=== PATIENT | female | born 1960 | race Two or more races ===

== ENCOUNTER 2022-08-06 01:40 | Inpatient (IN) | payer OTHER, SELFPAY ==
[2022-08-06] VITALS (12 sets, daily range): BP systolic 128–163; BP diastolic 63–86; PULSE 72–102; RESP 17–20; TEMP 36.2–37.2; O2SAT 95–98; BMI 51.0; BMI 51.1
--- NOTE | ~2022-08-06 | CT_ITS ---
EXAMINATION: CT HEAD WITHOUT CONTRAST (STROKE PROTOCOL) CLINICAL INFORMATION: Stroke protocol. Right-sided weakness COMPARISON: CT angiogram head 08/06/2022. TECHNIQUE: Contiguous axial imaging was performed from the skull base to vertex without intravenous administration of contrast. This CT examination was performed using dose optimization techniques as appropriate, variously including the following: *Automated exposure control *Adjustment of mA and/or kV according to patient size (this includes techniques or standardized protocols for targeted exams where dose is matched to indication/reason for exam; i.e. extremities or head) *Use of iterative reconstruction technique DLP: 648 mGy-cm FINDINGS: There is no acute intra-axial, extra-axial bleed, masses or midline shift. There is no acute infarction in evolution. There is no edema. The robin to white matter differentiation is maintained normal. The lateral ventricles are symmetrical in size and configuration without enlargement. Bone windows reveal no calvarial abnormality. Bilateral paranasal sinuses and mastoid air cells are well-aerated. There is no scalp soft tissue abnormality. CT/CT head for stroke IMPRESSION: No acute intracranial process seen. This critical result was discussed with Dr. Anne at 12:11 PM hours on 08/07/2022. It was ascertained that the content and urgency of the report was understood at the time of direct communication.
--- NOTE | ~2022-08-06 | CT_ITS ---
EXAMINATION: CT HEAD WITHOUT CONTRAST CT ANGIOGRAM HEAD AND NECK CLINICAL INFORMATION: Right-sided weakness COMPARISON: None TECHNIQUE: Test bolus sequences followed by intravenous administration 100 mL of Omnipaque 350 intravenous contrast. Helical imaging was performed in the axial plane from the mediastinum to the skull vertex. Delayed postcontrast imaging of the head was also performed. The data was processed at the product/device technologist's workstation for generation of MIP sequences. Three-dimensional volume rendered reformatted images were also generated at an offline 3-D workstation. This CT examination was performed using dose optimization techniques as appropriate, variously including the following: *Automated exposure control *Adjustment of mA and/or kV according to patient size (this includes techniques or standardized protocols for targeted exams where dose is matched to indication/reason for exam; i.e. extremities or head) *Use of iterative reconstruction technique The degree of stenosis determined by NASCET criteria. DLP: 2187 mGy-cm FINDINGS: BONES, SOFT TISSUES AND LUNG APICES: No overt abnormality is appreciated. CTA NECK: The aortic arch has a classic configuration and the major arch vessel origins are non-stenotic. The vertebral arteries are co-dominant and both vertebral origins are widely patent. Both common carotid arteries are normal in course and caliber. Left internal carotid artery demonstrates mild calcific atherosclerotic plaque at its origin without significant stenosis. Right internal carotid artery widely patent. CTA HEAD: No acute proximal large vessel occlusion, focal flow-limiting stenosis, or saccular intracranial aneurysm is identified. No abnormal parenchymal enhancement or regional oligemia is visualized. Extensive calcific atherosclerotic disease of the cavernous carotid arteries with irregular mild narrowing bilaterally however no hemodynamically significant stenosis. HEAD (noncontrast and delayed): No intracranial mass, intercerebral edema, hemorrhage, or midline shift is evident. The ventricles and sulci are stable in size and configuration. No extra-axial collections are appreciated. No pathologic intracranial enhancement. Dural sinuses are patent. The paranasal sinuses are well-aerated and clear. CT/CT angio head neck IMPRESSION: * No acute intracranial pathology. * No large vessel occlusion or hemodynamically significant stenosis within the intracranial or extracranial arterial vasculature.
--- NOTE | 2022-08-06 01:48 | ECG_ITS ---
Test Reason : DIZZINESS Blood Pressure : / mmHG Vent. Rate : 084 BPM Atrial Rate : 084 BPM P-R Int : 132 ms QRS Dur : 082 ms QT Int : 378 ms P-R-T Axes : 052 004 031 degrees QTc Int : 446 ms Normal sinus rhythm Normal ECG When compared with ECG of 02-DEC-2008 14:42, No significant change was found Referred By: Alayna Agarwal Electronically Signed By:RONALD STAHL MD
[2022-08-06 02:03] LABS: Basophils Absolute Auto 0.1 X10*3/uL (0.0-0.2); Basophils Percent Auto 0.4 % (0-2); Eosinophils Absolute Auto 0.1 X10*3/uL (0.0-0.4); Eosinophils Percent Auto 0.9 % (0-4); Hematocrit 37.7 % (37.0-47.0); Hemoglobin 12.4 g/dl (12.0-16.0); Imm Gran Abs Auto 0.07 X10*3/uL (0.00-0.03); Imm Gran Pct Auto 0.6 % (0.0-0.4); Lymphocytes Absolute Auto 2.8 X10*3/uL (1.2-4.9); Lymphocytes Percent Auto 24.2 % (20-40); MANUAL DIFF FLAG NO; Mean Corpuscular HGB Conc 32.9 g/dl (31.0-35.0); Mean Corpuscular Hemoglobin 29.3 pg (27.0-33.0); Mean Corpuscular Volume 89.1 fL (80.0-98.0); Mean Platelet Volume 9.5 fL (9.4-12.3); Monocytes Absolute Auto 0.7 X10*3/uL (0.1-1.2); Monocytes Percent Auto 6.4 % (2-11); Neutrophils Absolute Auto 7.8 x10*3/uL (2.0-8.3); Neutrophils Percent Auto 67.5 % (45-73); Platelet Count 357 X10*3/uL (160-400); Red Blood Count 4.23 X10*6/uL (4.20-5.50); Red Cell Distribution Width 12.6 % (11.0-16.0); White Blood Count 11.5 X10*3/uL (4.8-10.8)
--- NOTE | 2022-08-06 02:05 | PC.NURSE ---
patient reports dizziness that started at 5 in the afternoon with a headache and coldness of her right arm. She has a history of CVA with limited function of her right arm and leg.
[2022-08-06 02:09] LABS: Prothrombin Time 11.2 SEC (10.0-13.1)
[2022-08-06 02:21] LABS: Alanine Aminotransferase 15 U/L (0-31); Albumin Level 4.1 g/dL (3.5-5.0); Alkaline Phosphatase 61 U/L (39-117); Anion Gap 15 (12-20); Aspartate Amino Transferase 17 U/L (5-31); Bilirubin Total 0.4 mg/dL (0.0-1.0); Blood Urea Nitrogen 29 mg/dL (9-16); Calcium 9.8 mg/dL (8.4-10.2); Carbon Dioxide 27 mmol/L (22-29); Chloride 103 mmol/L (96-108); Creatinine Clr Calc Pharmacy 67.8; Estimated Glomerular Filt Rate 56; Glucose Random 103 mg/dL (60-115); Potassium 4.2 mmol/L (3.3-5.1); Sodium 141 mmol/L (135-145); Total Protein 7.9 g/dL (6.5-8.0)
[2022-08-06 02:25] LABS: Troponin-I High Sensitivity 4.9 ng/L (<3.5-17.0)
--- NOTE | 2022-08-06 02:40 | ED_ITS ---
HPI - Dizziness General Chief Complaint: Dizziness Stated Complaint: Dizziness for 30 mins Time Seen by Provider: 08/06/22 01:46 Source: patient and freelance interpreter/translator Mode of arrival: EMS History of Present Illness HPI Narrative: This is a 61-year-old female who arrives via EMS with complaints of dizziness that on the triage note says 30 minutes, but on questioning of the patient she states that her symptoms started at 18:00, no one was at home to help her and she did not call 911. Patient states that she has had a previous stroke and was undergoing physical therapy until approximately 07/[address] to [facility] she came to stay with her family who lives in the area. Therefore, she has not been undergoing any physical therapy and primarily gets around in a mechanical wheelchair until she stated with her family and now has limited ability to use a walker. Patient states that at approximately 18:00 she was experiencing headaches, dizziness and noted that her right upper and lower extremity became heavy. Related Data Allergies Allergy/AdvReac Type Severity Reaction Status Date / Time aspirin [Aspirin] Allergy Mild SWELLING, Unverified 01/11/21 14:25 facial swelling, redness Sulfa (Sulfonamide Allergy Mild SWELLING, Unverified 01/11/21 14:25 Antibiotics) facial [Sulfa (Sulfonamides)] swelling, redness Aspirin Allergy Unknown facial Uncoded 01/11/21 14:25 swolling sulfa Allergy Unknown facial Uncoded 01/11/21 14:25 swolling Review of Systems Review of Systems: Pertinent positives and negatives as stated in HPI PMFSH Past Medical History Source: nursing notes reviewed Social History Social History Advance Directives: No Advance Directives Information Provided: No Patient : No Physical Exam Vital Signs: Vital Signs: Last Vital Signs Temp 98.3 F 08/06/22 02:02 Pulse 90 08/06/22 03:39 Resp 18 08/06/22 01:46 BP 153/67 H 08/06/22 03:39 Pulse Ox 97 08/06/22 02:02 O2 Del Method Room Air 08/06/22 02:02 BMI result Body Mass Index 51.0 VITAL SIGNS: Reviewed. GENERAL: Elevated BMI, well developed, well nourished, in no acute distress. HEAD: Normocephalic/atraumatic EYES: PERRLA, EOMI EARS: Ext canals without abnormality NOSE: Nares patent bilateral OROPHARYNX: no oral lesions noted, posterior pharynx clear NECK: Supple, no adenopathy LUNGS: Normal breath sounds. No adventitious sounds or accessory muscle use. SpO2<97> CARDIOVASCULAR: Regular rate and rhythm without noted murmurs, no JVD or lower extremity edema. ABDOMEN: Soft, non-tender, non-distended with bowel sounds. MUSCULOSKELETAL: No tenderness, deformities, or effusions noted on gross inspection. EXTREMITIES: No cyanosis, clubbing or edema. SKIN: Inspection of the skin reveals no rashes NEUROLOGIC: Alert and oriented x 4. No facial asymmetry, please see NIH stroke scale NIH Stroke Scale Time: 02:30 Level of Consciousness: Alert Level of Consciousness Questions: Answers both questions correctly Level of Consciousness Commands: Performs both tasks correctly Best Gaze: Normal Visual: No visual loss Facial Palsy: Normal Motor Arm (Right): Some effort against gravity Motor Arm (Left): No drift Motor Leg (Right): Some effort against gravity Motor Leg (Left): No drift Limb Ataxia: Absent Sensory: Mild to moderate sensory loss Best Language: No aphasia Dysarthia: Normal Extinction and Inattention: No abnormality Score: 5 Medications Administered Discontinued Medications Generic Name Dose Route Start Last Admin Trade Name Freq PRN Reason Stop Dose Admin Iohexol 99 ml 08/06/22 03:28 08/06/22 03:29 Iohexol 350 Mg/Ml 100 Ml Infus..Btl IV 08/06/22 03:29 99 ml ONCE ONE Administration Medical Decision Making Medical Decision Making [facility] Narrative: This is a 61-year-old female who appears to be on Plavix for previous stroke, has not noted to be diabetic, symptom onset was at 18:00, it was explained to the patient that she is outside the window for tPA but NIH stroke scale is measured as 5 at this time. I will proceed with CT of the head as well as CT angio head/neck Review of all investigations demonstrates negative imaging studies to support any sort of LVO or hemorrhagic stroke, patient is subacute at this point this is not a tPA candidate, of note it was found that patient had a urinary tract infection, lactic acid and blood cultures were obtained and patient received initial dose of 1 g of Rocephin. There were no SIRS symptoms 0428: I discussed case with inpatient hospitalist who accepts admission. Differential Diagnosis Please see the discussion above Consult Healthcare Provider Management of the patient was discussed with: Hospitalist Please see the discussion above Lab Data Please see the discussion above 08/06/22 01:59 08/06/22 01:59 Labs: Lab Results 08/06/22 08/06/22 08/06/22 Range/Units 01:59 01:59 01:59 WBC 11.5 H (4.8-10.8) X10*3/uL RBC 4.23 (4.20-5.50) X10*6/uL Hgb 12.4 (12.0-16.0) g/dl Hct 37.7 (37.0-47.0) % MCV 89.1 (80.0-98.0) fL MCH 29.3 (27.0-33.0) pg MCHC 32.9 (31.0-35.0) g/dl RDW 12.6 (11.0-16.0) % Plt Count 357 (160-400) X10*3/uL MPV 9.5 (9.4-12.3) fL Immature Gran % (Auto) 0.6 H (0.0-0.4) % Neut % (Auto) 67.5 (45-73) % Lymph % (Auto) 24.2 (20-40) % [place] % (Auto) 6.4 (2-11) % Eos % (Auto) 0.9 (0-4) % Baso % (Auto) 0.4 (0-2) % Lymph # (Auto) 2.8 (1.2-4.9) X10*3/uL [place] # (Auto) 0.7 (0.1-1.2) X10*3/uL Eos # (Auto) 0.1 (0.0-0.4) X10*3/uL Baso # (Auto) 0.1 (0.0-0.2) X10*3/uL Abs Immat Gran (auto) 0.07 H (0.00-0.03) X10*3/uL Absolute Neuts (auto) 7.8 (2.0-8.3) x10*3/uL Absolute Nucleated RBC 0.000 (0.0-0.012) X10*3/uL Nucleated RBC % (auto) 0.0 (0.0-0.2) /100WBC PT 11.2 (10.0-13.1) SEC INR 1.0 (0.9-1.1) Sodium 141 (135-145) mmol/L Potassium 4.2 (3.3-5.1) mmol/L Chloride 103 (96-108) mmol/L Carbon Dioxide 27 (22-29) mmol/L Anion Gap 15 (12-20) BUN 29 H (9-16) mg/dL Creatinine 1.00 (0.5-1.4) mg/dL Estim Creat Clear Calc 67.8 Estimated GFR 56 POC Glucose (60-115) mg/dL Random Glucose 103 (60-115) mg/dL Calcium 9.8 (8.4-10.2) mg/dL Total Bilirubin 0.4 (0.0-1.0) mg/dL AST 17 (5-31) U/L ALT 15 (0-31) U/L Alkaline Phosphatase 61 (39-117) U/L Troponin I High Sens (<3.5-17.0) ng/L Total Protein 7.9 (6.5-8.0) g/dL Albumin 4.1 (3.5-5.0) g/dL Urine Color Urine Appearance Urine pH (5.0-9.0) Ur Specific [place] (1.005-1.025) Urine Protein (Neg-Trace) mg/dL Urine Glucose (UA) (Negative) mg/dL Urine Ketones (Negative) mg/dL Urine Blood (Negative) Urine Nitrite (Negative) Ur Leukocyte Esterase (Negative) Urine RBC (0-2) /HPF Urine WBC (0-5) /HPF Ur Squamous Epith Cells (0-2) /HPF Urine Bacteria (None Seen) Hyaline Casts (0-2) /LPF 08/06/22 08/06/22 08/06/22 Range/Units 01:59 03:25 03:45 WBC (4.8-10.8) X10*3/uL RBC (4.20-5.50) X10*6/uL Hgb (12.0-16.0) g/dl Hct (37.0-47.0) % MCV (80.0-98.0) fL MCH (27.0-33.0) pg MCHC (31.0-35.0) g/dl RDW (11.0-16.0) % Plt Count (160-400) X10*3/uL MPV (9.4-12.3) fL Immature Gran % (Auto) (0.0-0.4) % Neut % (Auto) (45-73) % Lymph % (Auto) (20-40) % [place] % (Auto) (2-11) % Eos % (Auto) (0-4) % Baso % (Auto) (0-2) % Lymph # (Auto) (1.2-4.9) X10*3/uL [place] # (Auto) (0.1-1.2) X10*3/uL Eos # (Auto) (0.0-0.4) X10*3/uL Baso # (Auto) (0.0-0.2) X10*3/uL Abs Immat Gran (auto) (0.00-0.03) X10*3/uL Absolute Neuts (auto) (2.0-8.3) x10*3/uL Absolute Nucleated RBC (0.0-0.012) X10*3/uL Nucleated RBC % (auto) (0.0-0.2) /100WBC PT (10.0-13.1) SEC INR (0.9-1.1) Sodium (135-145) mmol/L Potassium (3.3-5.1) mmol/L Chloride (96-108) mmol/L Carbon Dioxide (22-29) mmol/L Anion Gap (12-20) BUN (9-16) mg/dL Creatinine (0.5-1.4) mg/dL Estim Creat Clear Calc Estimated GFR POC Glucose 111 (60-115) mg/dL Random Glucose (60-115) mg/dL Calcium (8.4-10.2) mg/dL Total Bilirubin (0.0-1.0) mg/dL AST (5-31) U/L ALT (0-31) U/L Alkaline Phosphatase (39-117) U/L Troponin I High Sens 4.9 (<3.5-17.0) ng/L Total Protein (6.5-8.0) g/dL Albumin (3.5-5.0) g/dL Urine Color Yellow Urine Appearance Clear Urine pH 5.5 (5.0-9.0) Ur Specific [place] 1.020 (1.005-1.025) Urine Protein Negative (Neg-Trace) mg/dL Urine Glucose (UA) Negative (Negative) mg/dL Urine Ketones Negative (Negative) mg/dL Urine Blood Negative (Negative) Urine Nitrite Negative (Negative) Ur Leukocyte Esterase Large (3+) H (Negative) Urine RBC 0-2 (0-2) /HPF Urine WBC 11-20 H (0-5) /HPF Ur Squamous Epith Cells 6-10 (0-2) /HPF Urine Bacteria 2+ (None Seen) Hyaline Casts 0-2 (0-2) /LPF Independent Interpretation I performed an independent interpretation of an: EKG Interpretation: Normal sinus rhythm, HR-84, no STEMI, NM/QRS/QTC is within normal limits. Radiology Impression Radiologist Impression: My interpretation is in agreement with radiology's impression. Discharge Plan Discharge Clinical Impression: CVA (cerebral vascular accident), UTI (urinary tract infection) Patient Disposition: Admitted As Inpatient
[2022-08-06] MEDS: iohexoL 350 MG/ML 100 ML INFUS..BTL 99 ML IV (03:29)
[2022-08-06 03:51] LABS: Glucose, Whole Blood 111 mg/dL (60-115)
[2022-08-06 03:53] LABS: Appearance Urine Clear; Color Urine Yellow; Glucose Urine UA Negative (Negative); Leukocyte Esterase Urine Large (3+) (Negative); Nitrite Urine Negative (Negative); PH 5.5 (5.0-9.0); UMIC TRIGGER UACC YES; Urine Blood Negative (Negative); Urine Ketones Negative (Negative); Urine Protein Negative (Neg-Trace)
[2022-08-06 03:58] LABS: Bacteria Urine 2+ (None Seen); Hyaline Casts Urine 0-2 /LPF (0-2); RBC Urine 0-2 /HPF (0-2); UACC Culture Trigger YES
[2022-08-06] MEDS: cefTRIAXone sodium 1 GM in 0.9 % Sodium Chloride 50 ML IV (04:49)
--- NOTE | 2022-08-06 05:01 | P.HPHOSP_ITS ---
History of Present Illness Date of Service: 08/06/22 Chief Complaint: Right sided weakness This is a 61-year-old female with pertinent history of essential hypertension, gastroesophageal reflux disease, mixed hyperlipidemia, history of CVA who presents to the emergency department for evaluation of dizziness and right-sided weakness. Patient states her symptoms started at 18:00. Patient states her right upper and lower extremity became heavy and she had difficulty moving them. Also noted that she was having headache, dizziness which has been constant. Patient had a previous CVA in November and was using a walker to ambulate. She denies jerking movement of extremities, facial droop, urinary or bowel in continence. No fever, chills, chest discomfort, palpitations, shortness of breath, abdominal pain, changes in urinary or bowel habits. In the emergency department, CTA without any significant deficits Review of Systems Constitutional: Constitutional: Reports no additional constitutional compla ints and Reports weakness ENT: Reports dizziness Cardiovascular: Cardiovascular: Reports no additional cardiovascular complaints Respiratory: Respiratory: Reports no additional respiratory complaints Gastrointestinal: Gastrointestinal: Reports no additional gastrointestinal complaints Neurologic: Reports dizziness and Reports weakness [facility] Medical History Essential hypertension Mixed hyperlipidemia Mood disorder Pertinent family history: No family history of early CAD Social History Patient Tobacco Use Status: Never used Tobacco Advance Directives: No Advance Directives Information Provided: No Nutrition Risks: No Nutritional Risk Patient : No Meds Allergies Allergy/AdvReac Type Severity Reaction Status Date / Time aspirin [Aspirin] Allergy Mild SWELLING, Unverified 01/11/21 14:25 facial swelling, redness Sulfa (Sulfonamide Allergy Mild SWELLING, Unverified 01/11/21 14:25 Antibiotics) facial [Sulfa (Sulfonamides)] swelling, redness Aspirin Allergy Unknown facial Uncoded 01/11/21 14:25 swolling sulfa Allergy Unknown facial Uncoded 01/11/21 14:25 swolling Active Medications: Current Medications Pharmacy Consult (Consult Rx Perform Med Rec) 1 each MISCELLANE ONCE PRN PRN Reason: Consult order Home Medications Medication Instructions Recorded Confirmed Last Taken Type atorvastatin 40 mg tablet 40 mg PO DAILY 08/06/22 08/06/22 Unknown History chlorthalidone 25 mg tablet 25 mg PO DAILY 08/06/22 08/06/22 Unknown History cholecalciferol (vitamin D3) 125 125 mcg PO DAILY 08/06/22 08/06/22 Unknown History mcg (5,000 unit) tablet (Vitamin D3) clopidogrel 75 mg tablet 75 mg PO DAILY 08/06/22 08/06/22 Unknown History lisinopril 40 mg tablet 40 mg PO DAILY 08/06/22 08/06/22 Unknown History loratadine 10 mg tablet 10 mg PO DAILY 08/06/22 08/06/22 Unknown History meclizine 12.5 mg tablet 12.5 mg PO TID 08/06/22 08/06/22 Unknown History omeprazole 20 mg capsule,delayed 20 mg PO DAILY 08/06/22 08/06/22 Unknown History release Physical Exam Vital Signs and Narrative: Vital Signs: Last Vital Signs Temp 98.3 F 08/06/22 02:02 Pulse 90 08/06/22 03:39 Resp 18 08/06/22 01:46 BP 153/67 H 08/06/22 03:39 Pulse Ox 97 08/06/22 02:02 O2 Del Method Room Air 08/06/22 02:02 BMI result Body Mass Index 51.0 Middle-aged female lying in bed in no distress Neck supple, no JVD Regular rate and rhythm, S1-S2 heard Regular breath sounds bilaterally, no wheezing or crackles appreciated Abdomen soft nontender, no guarding, no rigidity Patient is awake, alert and oriented to self, place, time and person ; strength 5/5 in left upper and lower extremities, 3/5 in right upper extremity, 4/5 in right lower extremity, tongue and uvula midline, no facial droop Psych: Normal mood No pedal edema Results Labs 08/06/22 01:59 08/06/22 01:59 Labs: Laboratory Results - last 24 hr 08/06/22 08/06/22 08/06/22 01:59 01:59 01:59 MCV 89.1 MCH 29.3 MCHC 32.9 RDW 12.6 Plt Count 357 MPV 9.5 Immature Gran % (Auto) 0.6 H Neut % (Auto) 67.5 Lymph % (Auto) 24.2 [place] % (Auto) 6.4 Eos % (Auto) 0.9 Baso % (Auto) 0.4 Lymph # (Auto) 2.8 [place] # (Auto) 0.7 Eos # (Auto) 0.1 Baso # (Auto) 0.1 Abs Immat Gran (auto) 0.07 H Absolute Neuts (auto) 7.8 Absolute Nucleated RBC 0.000 Nucleated RBC % (auto) 0.0 PT 11.2 INR 1.0 Anion Gap 15 Estim Creat Clear Calc 67.8 Estimated GFR 56 POC Glucose Random Glucose 103 Calcium 9.8 Total Bilirubin 0.4 AST 17 ALT 15 Alkaline Phosphatase 61 Troponin I High Sens Total Protein 7.9 Albumin 4.1 Urine Color Urine Appearance Urine pH Ur Specific [place] Urine Protein Urine Glucose (UA) Urine Ketones Urine Blood Urine Nitrite Ur Leukocyte Esterase Urine RBC Urine WBC Ur Squamous Epith Cells Urine Bacteria Hyaline Casts 08/06/22 08/06/22 08/06/22 01:59 03:25 03:45 MCV MCH MCHC RDW Plt Count MPV Immature Gran % (Auto) Neut % (Auto) Lymph % (Auto) [place] % (Auto) Eos % (Auto) Baso % (Auto) Lymph # (Auto) [place] # (Auto) Eos # (Auto) Baso # (Auto) Abs Immat Gran (auto) Absolute Neuts (auto) Absolute Nucleated RBC Nucleated RBC % (auto) PT INR Anion Gap Estim Creat Clear Calc Estimated GFR POC Glucose 111 Random Glucose Calcium Total Bilirubin AST ALT Alkaline Phosphatase Troponin I High Sens 4.9 Total Protein Albumin Urine Color Yellow Urine Appearance Clear Urine pH 5.5 Ur Specific [place] 1.020 Urine Protein Negative Urine Glucose (UA) Negative Urine Ketones Negative Urine Blood Negative Urine Nitrite Negative Ur Leukocyte Esterase Large (3+) H Urine RBC 0-2 Urine WBC 11-20 H Ur Squamous Epith Cells 6-10 Urine Bacteria 2+ Hyaline Casts 0-2 Imaging Radiologist's Impressions: Impressions Head/Neck CTA 08/06/22 03:15 IMPRESSION: * No acute intracranial pathology. * No large vessel occlusion or hemodynamically significant stenosis within the intracranial or extracranial arterial vasculature. Assessment and Plan (1) CVA (cerebral vascular accident): Status: Acute Plan This is a 61-year-old female with pertinent history of essential hypertension, gastroesophageal reflux disease, mixed hyperlipidemia, history of CVA who presents to the emergency department for evaluation of dizziness and right-sided weakness. #. Right-sided weakness concerning for acute CVA. Will admit patient with cardiac exercise specialist. Consulted Neurology, appreciate assistance. Obtaining MRI of the brain. Echo, A1c and lipid panel pending to complete workup. Consulted PT/OT to evaluate and treat. NPO until patient passes swallow study. Patient is on Plavix and high-intensity statin #. Essential hypertension. Hold antihypertensives to allow for permissive hypertension #. Mood disorder. Continue home mood stabilizers #. Mixed hyperlipidemia: On statin #. Asymptomatic bacteriuria. Defer treatment #. Gastroesophageal reflux disease: On PPI Med rec pending DVT prophylaxis: Lovenox Full code NPO Admit as inpatient and will require two night minimum hospital stay for evaluation of possible CVA. Specialist consult pending Time Spent With Patient Time: Total time managing care of this patient today ____ minutes. Quality Stroke Does the patient have a stroke diagnosis?: Yes Reason for No Anti-thrombotic by Day Two: N/A - Med Ordered VTE Prior VTE?: No VTE Risk Level:: Medical - moderate - high VTE Device Contraindication: Treatment Not Indicated VTE Drug Contraindication: N/A - Med Ordered
--- OUTSIDE RECORDS SUMMARY | 2022-08-06 05:05 | XMS_ITS | Continuity of Care Document ---
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 Allergies, Adverse Reactions, Alerts Allergen Type Severity Reaction Last Updated Verified Status aspirin Allergy Unknown January 29, 2022 2:13pm Yes Active Sulfa (Sulfonamide Antibiotics) Allergy Unknown January 29, 022 2:13pm Yes Active Social History Smoking Status Unknown if ever smoked Observation Status Observation Response Date of [facility] 12:03pm Services Prior to Admission Home Health Aide [facility] 2021 12:03pm Living [facility] 2021 3:42pm Living Situation Apartment November 29, 2021 12:14pm Living Situation Apartment December 01, 2021 1:58pm Is Anyone Dependent on your Care? No January 29, 2022 2:14pm Living Situation Apartment January 29, 2022 2:14pm Lives With Family January 29, 022 2:14pm Additional Data Assigned Sex Female Problems Active Problems Medical Problem Onset Date Status Numbness Active Bradycardia Active Cerebrovascular disease Active TIA (transient ischemic attack) Active Superficial thrombophlebitis Act antonette Weakness Active HTN (hypertension) Active Obesity Active Inactive/Resolved Problems Medical Problem Onset Date Status Insomnia Resolved Headache Resolved Chest pain Resolved Medications Medication Status Dose Units Route Directions Qty Days St art Date End Date Instructions Cetirizine Active 10 MG PO DAILY [facility] 2021 11:00pm Metoprolol Succinate Active 200 MG PO DAILY [facility] 2021 11:00pm Chlorthalidon e Discontin ued 25 MG PO DAILY [facility] 2021 11:00pm [facility] 2021 11:44p m Chlorthalidon e Active 75 MG PO DAILY [facility] 2021 11:00pm Acetaminophen Active 500 MG PO DAILY [facility] 2021 11:00pm Pantoprazole Active 40 MG PO DAILY [facility] 2021 11:00pm Omeprazole Active 20 MG PO DAILY [facility] 2021 11:00pm Verapamil Active 240 MG PO DAILY [facility] 2021 11:00pm Fluticasone Propionate (Flovent Hfa) 220 mcg/actuation HFA aerosol inhaler Active 1 INH INH TWICE A DAY [facility] 2021 11:00pm Albuterol Sulfate (Proair Hfa) 90 mcg/actuation HFA aerosol inhaler Active 1 INH INH EVERY 6 HOURS [facility] 2021 11:00pm Lisinopril Active 40 MG PO DAILY [facility] 2021 11:00pm Topiramate Active 100 MG PO DAILY [facility] 2021 11:00pm Rosuvastatin Active 20 MG PO DAILY [facility] 2021 11:00pm Bupropion Hcl Active 300 MG PO DAILY [facility] 2021 11:00pm Cholecalcifer ol (Vitamin D3) (Vitamin D3) 125 mcg (5,000 unit) tablet Active 125 MCG PO DAILY [facility] 2021 11:00pm Acetaminophen Active 650 MG PO THREE TIMES A DAY [facility] 2021 11:00pm Clopidogrel Active 75 MG PO DAILY [facility] 11:00pm Procedures Procedure Date Performed Status US venous duplex LE RT January 29, 2022 2:17p m completed Relevant Diagnostic Tests and/or Laboratory Data Diagnostic Imaging Reports Report Dictated Date/Time Dictated By Status Radiology Report January 29, 2022 3:45pm Edilberto Sneed MD completed [address] [address] Patient Name: Luevano,Alysa Medical Record#: [id number] 1 Address: [address] [place] [address] City/State/Zip: [place] [address]: Mario E/R Physician Insurance: [facility] (Medicaid) /Age/Sex: 1960/61/F Self Pay Admit/Reg Date: 01/29/[address]: Evette Mena NP Location: ED.[facility]/ PCP: Agata Reza MD Date of Service: 01/29/22 Order (s): US venous duplex LE RT CPT Code: 69541 Report Number: [id number] Reason for Exam: calf pain/tender PROCEDURE: US venous duplex LE RT INDICATION: calf pain/tender right calf pain TECHNIQUE: Color and duplex Doppler ultrasound as well as Doppler waveform analysis was performed of the right common femoral, femoral, popliteal and posterior tibial veins. The veins are anechoic, fully compressible, demonstrate full color Doppler filling and normal Doppler waveforms with augmentation response. Normal phasicity is noted of the femoral veins. The right posterior tibial vein in the upper calf is patent on color Doppler imaging. Of note is partially occlusive thrombus of the great saphenous vein just proximal to the saphenofemoral junction. Great saphenous vein in the mid thigh shows no visible thrombus. IMPRESSION: Focal Partially occlusive thrombus of the great saphenous vein just proximal to the saphenofemoral junction. No sonographic evidence of right common femoral, femoral or popliteal venous thrombus Dictated By: Edilberto Sneed MD 01/29/22 1545 Signed By: Edilberto Sneed MD 01/29/22 1553 TD/TT: 01/29/22 1545Tech: [id number] cc: E/R; CECILY RAMIREZ* E/R Physician,Mario ; Evette Mena NP; Agata Reza MD Vital Signs Vital Reading Result Reference Range Collection Date/Time Height 152.4 cm January 29, 2022 2:14pm Weight 119.74 kg January 29, 2022 2:14pm Body Temperature 97.8 [degF] 97.6-99.6 January 292021 2:14pm Heart Rate 75 /min 60-90 January 29, 2022 2:14pm Respiratory rate 20 /min 12-January 292021 2:14pm Oxygen saturation by Pulse oximetry 99 % 95-100 January 29, 2022 2:14pm BP Systolic 114 mm[Hg] 90-140 January 29, 2022 2:14pm BP Diastolic 75 mm[Hg] 60-90 January 29, 2022 2:14pm BMI (Body Mass Index) 51.6 kg/m2 [facility] 2021 2:14pm Advance Directives Advance Directive Response Recorded Date/ Time Pt has Medical Orders for Li fe Sustaining Tx Form (MOLST)? No November 14, 2021 9:59am Advance Directives No November 9:59am Health Care Proxy No November 14, 2021 9:59am Advance Directives No November 3:18pm Health Care Proxy No November 3:18pm Advance Directives No November 11:53am Health Care Proxy No November 11:53am Advance Directives No November 1:41pm Health Care Proxy No November 1:41pm Advance Directives No January 12:23pm Health Care Proxy No January 29, 2022 12:23pm Insurance Providers Guarantor Alysa Luevano Address [address] [place] [address] Contact Info. Home Phone: Payer Policy Id Coverage Id Subscriber's Name Subscriber Id Effective Date Expiration Date [facility] (Medicaid) [id number] Alysa Luevano [id number] Encounters Encounter Location(s) Arrival/Admit Date Discharge/Depart Date Provider(s) Departed Emergency [facility] January 29, 2022 12:23pm January 29, 2022 4:32pm null Plan of Treatment Future Tests Future scheduled test information is unavailable Pending Tests Test Name Ordered Date Scheduled Date VTE Risk Assessment Medical November 14, 2021 2:09am November 14, 2021 2:09am Future Visits Future appointment information is unavailable Referrals to Other Providers Reason for Referral Referral Start Date Provider Provider Contact Information Provider Address 6 months Rachna Norris MD Work Phone: [address] [facility] [address] Agata Reza MD Work Phone: [address] [address] Agata Reza MD Work Phone: [phone] [address] Agata Reza MD Work Phone: [address] [address] Agata Reza MD Work Phone: [phone] [address] Agata Reza MD Work Phone: [phone] [phone] Future Procedures Procedure Name Ordered Date Scheduled Date Hospital Level of Care November 15, 2021 9:43a m November 15, 2021 9:43am Occupational Therapy Consult November 14, 2021 8:57am November 14, 2021 8:57am Physical Therapy Consult November 14, 2021 2:0 9am November 14, 2021 2:09am Activity November 14, 2021 2:09am Septe mb 2021 2:10am Discharge November 16, 2021 2:50pm Septmario kirkpatrick 2021 2:50pm Discharge November 17, 2021 9:43am Septmario kirkpatrick 2021 9:43am ED Transfer of Care to Adm Physician November 13, 2021 11:33pm November 13, 2021 11:33p m Elevate Head of Bed November 13, 2021 9:32pm S eptember 2021 9:32pm Saline Lock Insert/Manage November 13, 2021 8: 47pm November 13, 2021 8:47pm Neurology Consult November 14, 2021 2:09am Sep tember 2021 2:09am Oxygen Initiate/Maintain November 13, 2021 9:3 2pm November 13, 2021 9:32pm Oxygen Initiate/Maintain November 13, 2021 8:4 7pm November 13, 2021 8:47pm Patient Preference for Pain Management November 14, 2021 2:09am November 14, 2021 2:09am Provider Order to Nurse November 14, 2021 9:30 am November 14, 2021 9:30am Continuous Pulse Oximetry November 13, 2021 8: 47pm November 13, 2021 8:47pm Continuous Pulse Oximetry November 13, 2021 9: 32pm November 13, 2021 9:32pm Sequential Compression Device November 14 2:09am November 14, 2021 2:09am Vascular Surgery Consult November 14, 2021 1:3 3pm November 14, 2021 1:33pm Saline Lock Insert/Manage November 21, 2021 3 :46pm November 21, 2021 3:46pm Oxygen Initiate/Maintain November 21, 2021 3: 46pm November 21, 2021 3:46pm Continuous Pulse Oximetry November 21, 2021 3 :46pm November 21, 2021 3:46pm Future Medications Future medication information is unavailable Patient Instructions Self-Care for Headaches ED Thrombophlebitis, Superfi cial Goals Acute Goals You have a blood clot in you r leg it is superficial. Apply warm moist compresses 3-4 times daily use Tylenol for pain follow-up with your primary care provider.
--- OUTSIDE RECORDS SUMMARY | 2022-08-06 05:05 | XMS_ITS | Continuity of Care Document ---
Author Name Unknown Address [address] [place] [address] Phone Organization [facility] Address [address] [place] [address] Phone Care Team Providers Care Divisional Storekeeper Name Role Phone MD Agata Reza Primary Care Provider MD Carroll Alcantara Emergency Provider [phone] MD Pa Cooper Attending Provider [phone] Production Analyst, Twan Other Provider Unavailable Chief Complaint and Reason for Visit Chief Complaint Vertigo Reason for Visit Vertigo Allergies, Adverse Reactions, Alerts Allergen Type Severity Reaction Last Updated Verified Status aspirin Allergy Unknown April 02, 2022 1:53pm Yes Active Sulfa (Sulfonamide Antibiotics) Allergy Unknown April 02 1:53pm Yes Active Social History Smoking Status Unknown if ever smoked Observation Status Observation Response Date of Response Living Situation Apartment November 15, 2021 12:03pm Services Prior to Admission Home Health Aide [facility] 2021 12:03pm Living Situation Hearing Aid Assistant Care Facility [facility] 2021 3:42pm Living Situation Apartment November 29, 2021 12:14pm Living Situation Apartment December 01, 2021 1:58pm Is Anyone Dependent on your Care? No January 29, 2022 2:14pm Living Situation Apartment January 29, 2022 2:14pm Lives With Family January 29, 2 022 2:14pm Additional Data Assigned Sex Female Problems Active Problems Medical Problem Onset Date Status Numbness Active Bradycardia Active Cerebrovascular disease Active TIA (transient ischemic attack) Active Vertigo Active Weakness Active HTN (hypertension) Active Obesity Active Inactive/Resolved Problems Medical Problem Onset Date Status Insomnia Resolved Headache Resolved Superficial thrombophlebitis Res olved Chest pain Resolved Medications Medication Status Dose Units Route Directions Qty Days St art Date End Date Instructions Cetirizine Discontin ued 10 MG PO DAILY [facility] 2021 11:00pm 2022 4:22pm Metoprolol Succinate Discontin ued 200 MG PO DAILY [facility] 2021 11:00pm 2022 4:22pm Chlorthalidon e Discontin ued 25 MG PO DAILY [facility] 2021 11:00pm Septem inessa 2021 11:44p m Chlorthalidon e Discontin ued 75 MG PO DAILY [facility] 2021 11:00pm 2022 4:20pm Acetaminophen Active 500 MG PO TWICE A DAY [facility] 2021 11:00pm Pantoprazole Discontin ued 40 MG PO DAILY [facility] 2021 11:00pm 2022 4:24pm Omeprazole Active 20 MG PO DAILY [facility] 2021 11:00pm Verapamil Active 240 MG PO DAILY [facility] 2021 11:00pm Fluticasone Propionate (Flovent Hfa) 220 mcg/actuation HFA aerosol inhaler Active 1 INH INH DAILY [facility] 2021 11:00pm Albuterol Sulfate (Proair Hfa) 90 mcg/actuation HFA aerosol inhaler Active 1 INH INH EVERY 6 HOURS [facility] 2021 11:00pm Lisinopril Active 40 MG PO DAILY [facility] 2021 11:00pm Topiramate Discontin ued 100 MG PO DAILY [facility] 2021 11:00pm 2022 4:24pm Rosuvastatin Discontin ued 20 MG PO DAILY [facility] 2021 11:00pm 2022 4:53pm Bupropion Hcl Discontin ued 300 MG PO DAILY [facility] 2021 11:00pm 2022 4:23pm Cholecalcifer ol (Vitamin D3) (Vitamin D3) 125 mcg (5,000 unit) tablet Active 125 MCG PO DAILY [facility] 2021 11:00pm Acetaminophen Discontin ued 650 MG PO THREE TIMES A DAY [facility] 2021 11:00pm Jantam y 2022 4:22pm Clopidogrel Active 75 MG PO DAILY 30 er 2021 11:00pm Atorvastatin Active 40 MG PO DAILY 2022 12:00am Chlorthalidon e Active 25 MG PO DAILY April 02, 2022 12:00am Rosuvastatin Active 10 MG PO DAILY 2022 12:00am Procedures Procedure Date Performed Status EKG ED Electrocardiogram April 02, 2022 1:[address] head/brain wo contrast April 02, 2022 1:5 1pm completed Relevant Diagnostic Tests and/or Laboratory Data Laboratory Results Test Date/Time Result Interpretation Reference Range Result Comment Performing Site White Blood Count April 02, 2022 1:58pm 12.4 X10 3/uL 4.5-11.0 [facility] [id number] [address] [place] [address] 40654 Red Blood Count April 02, 2022 1:58pm 4.18 X10 6/uL 3.70-5.00 [facility] [id number] [address] [place] [address] 84415 Hemoglobin April 02, 2022 1:58pm 12.4 g/dl 11.0-16.0 [facility] [id number] [address] [place] [address] 63049 Hematocrit April 02, 2022 1:58pm 39.1 % 33.5-45.0 [facility] [id number] [address] [place] [address] 36292 Mean Corpuscular Volume April 02, 2022 1:58pm 93.5 fl 80.0-100.0 [facility] [id number] [address] [place] [address] 44669 Mean Corpuscular Hemoglobin April 02, 2022 1:58pm 29.7 pg 27.0-34.0 [facility] [id number] [facility] 8[address]77 Mean Corpuscular Hemoglobin Concent April 02, 2022 1:58pm 31.7 g/dl 31.0-36.0 [facility] [id number] [address] [place] [address] 41876 Red Cell Distribution Width April 02, 2022 1:58pm 12.1 % 11.5-15.0 [facility] [id number] [address] [place] [address] 24364 Platelet Count April 02, 2022 1:58pm 355 X10 3/uL 150-400 [facility] [id number] [address] [place] [address] 00859 Immature Granulocyte % (Auto) April 02, 2022 1:58pm 1.1 % [facility] [id number] [address] [place] [address] 72923 Neutrophils (%) (Auto) April 02, 2022 1:58pm 80.0 % [facility] [id number] [address] [place] [address] 47816 Lymphocytes (%) (Auto) April 02, 2022 1:58pm 13.4 % [facility] [id number] [address] [place] [address] 87832 Monocytes (%) (Auto) April 02, 2022 1:58pm 4.7 % [facility] [id number] [address] [place] [address] 91847 Eosinophils (%) (Auto) April 02, 2022 1:58pm 0.3 % [facility] [id number] [address] [place] [address] 00165 Basophils (%) (Auto) April 02, 2022 1:58pm 0.5 % [facility] [id number] [address] [place] [address] 01339 Immature Granulocyte # (Auto) April 02, 2022 1:58pm 0.14 X10 3/uL 0.00-0.09 [facility] [id number] [address] [place] [address] 57554 Neutrophils # (Auto) April 02, 2022 1:58pm 9.9 X10 3/uL 1.5-7.8 [facility] [id number] [facility] 879[address] Lymphocytes # (Auto) April 02, 2022 1:58pm 1.7 X10 3/uL 1.0-4.8 [facility] [id number] [address] [place] [address] 43633 Monocytes # (Auto) April 02, 2022 1:58pm 0.6 X10 3/uL 0.0-0.8 [facility] [id number] [address] [place] [address] 03073 Eosinophils # (Auto) April 02, 2022 1:58pm 0.0 X10 3/uL 0.0-0.5 [facility] [id number] [address] [place] [address] 78274 Basophils # (Auto) April 02, 2022 1:58pm 0.1 X10 3/uL 0.0-0.2 [facility] [id number] [address] [place] [address] 09693 Nucleated Red Blood Cells % April 02, 2022 1:58pm 0.0 /100 WBC 0.0-0.0 [facility] [id number] [address] [place] [address] 39638 Sodium Level April 02, 2022 1:58pm 138 mmol/L 137-146 [facility] [id number] [address] [place] [address] 76983 Potassium Level April 02, 2022 1:58pm 4.2 mmol/L 3.5-5.3 [facility] [id number] [address] [place] [address] 64732 Chloride Level April 02, 2022 1:58pm 100 mmol/L 98-107 [facility] [id number] [address] [place] [address] 59918 Carbon Dioxide Level April 02, 2022 1:58pm 25 mmol/L 23-32 [facility] [id number] [address] [place] [address] 31694 Anion Gap April 02, 2022 1:58pm 13 mmol/L 5-15 [facility] [id number] [address] [place], [place] [address] Blood Urea Nitrogen April 02, 2022 1:58pm 14 mg/dl 5-25 [facility] [id number] [address] [place] [address] 11064 Creatinine April 02, 2022 1:58pm 0.6 mg/dL 0.5-1.1 [facility] [id number] [address] [place], [place] [address] Estimated Creatinine Clearance April 02, 2022 1:58pm 110.1 ml/min This value is calculated by Cockcroft Gault Equation using ideal body weight. This result is dependent on an accurate patient height and weight which is obtained from patients medical record. Alyx MoralesW. and M.H. Santana. Prediction of creatinine clearance from serum creatinine. Nephron. 1976. 16(1):31-41. [facility] [id number] [address] [place], [place] [address] Estimat Glomerular Filtration Rate April 02, 2022 1:58pm 101 >90 Reported eGFR is based on the CKD-EPI 2020 equation that does not use a race coefficient. Additional information can be found at:[id number] _[email or web address]_sum [email or web address].p df ([email or web address]) [facility] [id number] [address] [place] [address] 34408 BUN/Creatinine Ratio April 02, 2022 1:58pm 23.3 10.0-20.0 [facility] [id number] [address] [place], [place] [address] Glucose Level April 02, 2022 1:58pm 109 mg/dL 70-100 [facility] [id number] [address] [place], [place] [address] Calcium Level April 02, 2022 1:58pm 9.6 mg/dl 8.6-10.3 [facility] [id number] [address] [place], [place] [address] Troponin T High Sensitivity April 02, 2022 4:44pm 7 ng/L <8 Normal range: Females <9 ng/L Males <14 ng/L Values greater than or equal to 52 ng/L indicates acute myocardial injury/infarc tion Values between '10 and 51 ng/L' (for females) or '15 and 51 ng/L' (for males) require clinical correlation and is not diagnostic of acute myocardial injury.Consid er repeat at 1 and 3 hours.A dynamic increase of ? greater than 5 ng/L? at 1 hour or 3 hours indicates of acute myocardial injury/infarc tion.For a patient with an estimated GFR of less than 30 mL/min/1.73 m2 or receiving dialysis, a dynamic increase of greater than 20% at 3 hours indicates acute myocardial injury.A value of less than 9 ng/L (in females) or less than 14 ng/L (in males) with a dynamic change of less than 3 ng/L, greater than 3 hours after symptom onset, generally rules out acute myocardial injury/infarc tion.Refer to Chest Pain order sets for additional clinical decision support (using the HEART score for the ED or the JESUS score for the inpatient setting). [facility] [id number] [address] [place] [address] Diagnostic Imaging Reports Report Dictated Date/Time Dictated By Status Radiology Report April 02, 2022 2:31pm [place] [address] Patient Name: Alysa Luevano Medical Record#: [id number] 1 Address: [address] [place] [address] City/State/Zip: [place] [address]: Haja Alcantara MD Insurance: [facility] (Medicaid) /Age/Sex: 1960/61/F Self Pay Admit/Reg Date: 04/02/[address]: Carroll castellon MD Location: ED.[facility]/ PCP: Agata Reza MD Date of Service: 04/02/22 Order (s): CT head/brain wo contrast CPT Code: 97892 Report Number: [id number] Reason for Exam: dizziness CT head/brain wo contrast HISTORY: dizziness TECHNIQUE: Serial 5 mm unenhanced axial images were obtained from the foramen magnum through the vertex. Coronal and sagittal reformats were provided. Automated exposure control and dose reduction techniques were utilized. COMPARISON: CT brain November 29, 2021 FINDINGS: Sulci, ventricles and basal cisterns are appropriate for age. The robin-white matter differentiation is preserved. No acute intra or extra-axial hemorrhage or fluid collection. No acute territorial infarct. No mass effect, midline shift or hydrocephalus. The paranasal sinuses and right mastoid air cells are clear. There is opacification of the left mastoid air cells. No focal osseous lesion. IMPRESSION: No acute intracranial abnormality. Dictated By: Iliana Daniels MD 04/02/221430 Signed By: Iliana Daniels MD 04/02/221441 TD/TT: 04/02/221430Tech: [id number] cc: [email or web address]; ASHLEY* Agata Reza MD; Carroll Alcantara MD Vital Signs Vital Reading Result Reference Range Collection Date/Time Height 152.4 cm April 02, 2 023 1:26pm Weight 113.39 kg April 02, 2 023 1:26pm Body Temperature 97.7 [degF] 97.6-99.6 March 4:16pm Heart Rate 80 /min 60-90 April 02, 2 023 10:06pm Respiratory rate 19 /min 12-24 March 10:06pm Oxygen saturation by Pulse oximetry 97 % 95-100 April 02, 2022 1 0:06pm BP Systolic 136 mm[Hg] 90-140 April 02, 2 023 10:06pm BP Diastolic 69 mm[Hg] 60-90 April 02, 2 023 10:06pm BMI (Body Mass Index) 48.8 kg/m2 Quan aceves 2022 1:26pm Advance Directives Advance Directive Response Recorded Date/ [...] Proxy No November 1:41pm Advance Directives No April 02, 2022 1:19pm Health Care Proxy No April 02, 2022 1:19pm Advance Directives No January 12:23pm Health Care Proxy No January 29, 2022 12:23pm Insurance Providers Guarantor Alysa Luevano Address [address] [address] Contact Info. Home Phone: Payer Policy Id Coverage Id Subscriber's Name Subscriber Id Effective Date Expiration Date [facility] (Medicaid) [id number] Alysa Luevano [id number] Encounters Encounter Location(s) Arrival/Admit Date Discharge/Depart Date Provider(s) Admitted Inpatient [facility] April 02, 2022 3:30pm Pa Cooper MD Recent Diagnosis Onset Date Vertigo Assessments Diagnosis Onset Date Resolution Status Vertigo acute Plan of Treatment Future Tests Future scheduled test information is unavailable Pending Tests Test Name Ordered Date Scheduled Date Hemoglobin A1c April 03, 2022 6:00am Estimated Average Glucose (eAG) April 03 6:00am Urine Color April 02, 2022 10:51pm Urine Clarity April 02, 2022 10:51pm Urine pH April 02, 2022 10:51pm Urine Specific Hellier April 02, 2022 10:51p m Urine Blood April 02, 2022 10:51pm Urine Protein April 02, 2022 10:51pm Urine Glucose (UA) April 02, 2022 10:51pm Urine Ketones April 02, 2022 10:51pm Urine Nitrate April 02, 2022 10:51pm Urine Bilirubin April 02, 2022 10:51pm Urine Urobilinogen April 02, 2022 10:51pm Urine Leukocyte Esterase April 02, 2022 10:5 1pm Triglycerides Level April 03, 2022 6:00am Cholesterol Level April 03, 2022 6:00am LDL Cholesterol, Calculated April 03, 2022 6 :00am HDL Cholesterol April 03, 2022 6:00am Cholesterol/HDL Ratio April 03, 2022 6:00am Vitamin B12 Level April 03, 2022 6:00am Thyroid Stimulating Hormone (Reflex April 03, 2022 6:00am VTE Risk Assessment Medical November 14, 2021 2:09am November 14, 2021 2:09am Vitamin B12 April 02, 2022 8:20pm Maruar 2022 6:00am Lipid Panel April 02, 2022 8:20pm Maruar y 2022 6:00am TSH Reflex Free T4 April 02, 2022 8:20pm Villa uary 2022 6:00am Future Visits Future appointment information is unavailable Referrals to Other Providers Reason for Referral Referral Start Date Provider Provider Contact Information Provider Address 6 months Rachna Norris MD Work Phone: [address] [facility] [address] Agata Reza MD Work Phone: [address] [address] Agata Reza MD Work Phone: [address] [address] Agata Reza MD Work Phone: [address] [address] Agata Reza MD Work Phone: [address] [address] Agata Reza MD Work Phone: [phone] [address] Future Procedures Procedure Name Ordered Date Scheduled Date Hospital Level of Care November 15, 2021 9:43a m November 15, 2021 9:43am Occupational Therapy Consult November 14, 2021 8:57am November 14, 2021 8:57am Physical Therapy Consult November 14, 2021 2:0 9am November 14, 2021 2:09am Activity November 14, 2021 2:09am Heidi kirkpatrick 2021 2:10am Discharge November 16, 2021 2:50pm Heidi kirkpatrick 2021 2:50pm Discharge November 17, 2021 9:43am Heidi kirkpatrick 2021 9:43am ED Transfer of Care to Adm Physician November 13, 2021 11:33pm November 13, 2021 11:33pm Elevate Head of Bed November 13, 2021 [...] 14, 2021 1:33pm Saline Lock Insert/Manage November 3:46pm November 21, 2021 3:46pm Oxygen Initiate/Maintain November 21, 2021 3:46pm November 21, 2021 3:46pm Continuous Pulse Oximetry November 3:46pm November 21, 2021 3:46pm EKG ED Electrocardiogram April 02, 2022 1:31 pm April 02, 2022 1:31pm Hospital Level of Care April 02, 2022 3:30pm April 02, 2022 3:30pm Occupational Therapy Consult April 02, 2022 8:20pm April 02, 2022 8:21pm Physical Therapy Consult April 02, 2022 8:20 pm April 02, 2022 8:21pm UA, Urinalysis Rflx Cult/Sedmt April 02 1:51pm April 02, 2022 1:51pm Activity April 02, 2022 3:30pm Januar y 2022 3:30pm Code Status April 02, 2022 3:30pm Januar y 2022 3:30pm ED Transfer of Care to Adm Physician April 02, 2022 3:27pm April 02, 2022 3:27pm Hemoglobin A1C April 02, 2022 8:20pm Quan aceves 2022 6:00am Peripheral IV Insert/Manage April 02, 2022 3 :30pm April 02, 2022 3:30pm Neurology Consult April 02, 2022 8:20pm Major mireles 2022 8:21pm Patient Preference for Pain Management April 02, 2022 3:30pm April 02, 2022 3:30pm Sequential Compression Device April 02, 2022 3:30pm April 02, 2022 3:30pm Future Medications Future medication information is unavailable Patient Instructions Self-Care for Headaches ED Thrombophlebitis, Hitesh bustillos
--- OUTSIDE RECORDS SUMMARY | 2022-08-06 05:06 | XMS_ITS | Continuity of Care Document ---
Author Name Unknown Address [address] [place] [address] Phone Organization [facility] Address [address] [place] [address] Phone Care Team Providers Care Deck Worker Name Role Phone MD Agata Reza Primary Care Provider MD Reyna Rodrigues Emergency Provider Customs Officer, Twan Other Provider Unavailable MD Taina Naqvi Attending Provider MD Ken Norrisim Other Provider Chief Complaint and Reason for Visit Chief Complaint TIA Reason for Visit Bradycardia Cerebrovascular disease Numbness TIA (transient ischemic attack) Weakness HTN (hypertension) Obesity Allergies, Adverse Reactions, Alerts Allergen Type Severity Reaction Last Updated Verified Status aspirin Allergy Unknown November 13, 2021 9:42pm Yes Active Sulfa (Sulfonamide Antibiotics) Allergy Unknown November 13 9:42pm Yes Active Social History Smoking Status Unknown if ever smoked Observation Status Observation Response Date of Response Lives With Spouse November 15 1:03pm Living Situation Apartment November 15, 2021 1:03pm Services Prior to Admission Home Health Aide Iliana 2021 1:03pm Additional Data Assigned Sex Female Problems Active Problems Medical Problem Onset Date Status Numbness Active Bradycardia Active Cerebrovascular disease Active TIA (transient ischemic attack) Active Weakness Active HTN (hypertension) Active Obesity Active Medications Medication Status Dose Units Route Directions Qty Days St art Date End Date Instructions Cetirizine Active 10 MG PO DAILY [facility] 2021 12:00am Metoprolol Succinate Active 200 MG PO DAILY [facility] 2021 12:00am Chlorthalidon e Discontin ued 25 MG PO DAILY [facility] 2021 12:[facility]am [facility] 12:44a m Chlorthalidon e Active 75 MG PO DAILY [facility] 2021 12:00am Acetaminophen Active 500 MG PO DAILY [facility] er 2021 12:00am Pantoprazole Active 40 MG PO DAILY [facility] 2021 12:00am Omeprazole Active 20 MG PO DAILY [facility] 2021 12:00am Verapamil Active 240 MG PO DAILY [facility] 2021 12:00am Fluticasone Propionate (Flovent Hfa) 220 mcg/actuation HFA aerosol inhaler Active 1 INH INH TWICE A DAY [facility] 2021 12:00am Albuterol Sulfate (Proair Hfa) 90 mcg/actuation HFA aerosol inhaler Active 1 INH INH EVERY 6 HOURS [facility] 2021 12:00am Lisinopril Active 40 MG PO DAILY [facility] 2021 12:00am Topiramate Active 100 MG PO DAILY [facility] 2021 12:00am Rosuvastatin Active 20 MG PO DAILY [facility] 2021 12:00am Bupropion Hcl Active 300 MG PO DAILY [facility] 2021 12:00am Cholecalcifer ol (Vitamin D3) (Vitamin D3) 125 mcg (5,000 unit) tablet Active 125 MCG PO DAILY [facility] 2021 12:00am Acetaminophen Active 650 MG PO THREE TIMES A DAY [facility] 2021 12:00am Clopidogrel Active 75 MG PO DAILY [facility] 2021 12:00am Procedures Procedure Date Performed Status EKG ED Electrocardiogram November 13, 2021 9:4 7pm completed XR chest 1V portable November 13, 2021 9:47pm completed CT angio head stroke November 13, 2021 10:32pm completed CT angio neck stroke November 13, 2021 10:32pm completed CT head stroke wo contrast November 13, 2021 1 0:32pm completed Echo TTE comp w/dop w contrast November 14 3:09am completed MR head/brain wo contrast November 15, 2021 3: 09am completed EKG Electrocardiogram November 15, 2021 7:22pm completed Event Holter Application November 16, 2021 10: 00am completed Urine Culture completed Relevant Diagnostic Tests and/or Laboratory Data Laboratory Results Test Date/Time Result Interpretation Reference Range Result Comment Performing Site Add-On Test Request November 13, 2021 10:48pm Added test [facility] [address] [place] [address] 40464 White Blood Count November 16, 2021 5:35am 11.5 X10 3/uL 4.5-11.0 [facility] [address] [place] [address] 86914 Red Blood Count November 16, 2021 5:35am 4.28 X10 6/uL 3.70-5.00 [facility] [address] [place] [address] 81462 Hemoglobin November 16, 2021 5:35am 12.4 g/dl 11.0-16.0 [facility] [address] [place] [address] 16692 Hematocrit November 16, 2021 5:35am 39.7 % 33.5-45.0 [facility] [address] [place] [address] 23138 Mean Corpuscular Volume November 16, 2021 5:35am 92.8 fl 80.0-100.0 [facility] [address] [place] [address] 53291 Mean Corpuscular Hemoglobin November 16, 2021 5:35am 29.0 pg 27.0-34.0 [facility] [address] [place] [address] 67384 Mean Corpuscular Hemoglobin Concent November 16, 2021 5:35am 31.2 g/dl 31.0-36.0 [facility] [address] [place] [address] 45792 Red Cell Distribution Width November 16, 2021 5:35am 13.7 % 11.5-15.0 [facility] [address] [place] [address] 82230 Platelet Count November 16, 2021 5:35am 347 X10 3/uL 150-400 [facility] [address] [place] [address] 71744 Immature Granulocyte % (Auto) November 16, 2021 5:35am 1.5 % [facility] [address] [place] [address] 28595 Neutrophils (%) (Auto) November 16, 2021 5:35am 65.6 % [facility] [address] [place] [address] 15019 Lymphocytes (%) (Auto) November 16, 2021 5:35am 26.4 % [facility] [address] [place] [address] 35580 Monocytes (%) (Auto) November 16, 2021 5:35am 5.8 % [facility] [address] [place] [address] 75203 Eosinophils (%) (Auto) November 16, 2021 5:35am 0.3 % [facility] [address] [place] [address] 34194 Basophils (%) (Auto) November 16, 2021 5:35am 0.4 % [facility] [address] [place] [address] 88039 Immature Granulocyte # (Auto) November 16, 2021 5:35am 0.17 X10 3/uL 0.00-0.09 [facility] [address] [place] [address] 87583 Neutrophils # (Auto) November 16, 2021 5:35am 7.5 X10 3/uL 1.5-7.8 [facility] [address] [place] [address] 51404 Lymphocytes # (Auto) November 16, 2021 5:35am 3.0 X10 3/uL 1.0-4.8 [facility] [address] [place] [address] 22229 Monocytes # (Auto) November 16, 2021 5:35am 0.7 X10 3/uL 0.0-0.8 [facility] [address] [place] [address] 35580 Eosinophils # (Auto) November 16, 2021 5:35am 0.0 X10 3/uL 0.0-0.5 [facility] [address] [place] [address] 10588 Basophils # (Auto) November 16, 2021 5:35am 0.1 X10 3/uL 0.0-0.2 [facility] [address] [place] [address] 76040 Hemoglobin A1c November 14, 2021 3:16pm 5.8 4.3-5.9 [facility] [address] [place] [address] 12504 Estimated Average Glucose (eAG) November 14, 2021 3:16pm 120 mg/dl [facility] [address] [place] [address] 34870 Nucleated Red Blood Cells % November 16, 2021 5:35am 0.0 /100 WBC 0.0-0.0 [facility] [address] [place] [address] 17610 Urine Color November 14, 2021 3:52am Yellow Yellow [facility] [address] [place] [address] 71045 Urine Clarity November 14, 2021 3:52am Clear Clear [facility] [address] [place] [address] 12873 Urine pH November 14, 2021 3:52am 5.0 5.0-8.0 [facility] [address] [place] [address] 34626 Urine Specific [place] November 14, 2021 3:52am >= 1.030 1.005-1.03 0 [facility] [address] [place] [address] 40430 Urine Blood November 14, 2021 3:52am Negative mg/dL Negative [facility] [address] [place] [address] 84139 Urine Protein November 14, 2021 3:52am Negative mg/dL Negative [facility] [address] [place] [address] 69934 Urine Glucose (UA) November 14, 2021 3:52am Negative mg/dl Negative [facility] [address] [place] [address] 50257 Urine Ketones November 14, 2021 3:52am Negative mg/dL Negative [facility] [address] [place] [address] 57223 Urine Nitrate November 14, 2021 3:52am Negative Negative [facility] [address] [place] [address] 89104 Urine Bilirubin November 14, 2021 3:52am Negative mg/dL Negative [facility] [address] [place] [address] 36717 Urine Urobilinogen November 14, 2021 3:52am 0.2 E.U./dL Normal [facility] [address] [place] [address] 61946 Urine Leukocyte Esterase November 14, 2021 3:52am Moderate mg/dL Negative [facility] [address] [place] [address] 51271 Urine RBC (Auto) November 14, 2021 3:52am None seen /HPF 0-2 [facility] [address] [place] [address] 66325 Urine WBC (Auto) November 14, 2021 3:52am 11-25 /HPF 0-5 [facility] [address] [place] [address] 56460 Urine Epithelial Cells (Auto) November 14, 2021 3:52am 6-10 /HPF 0-5 [facility] [address] [place] [address] 78676 Urine Casts (Auto) November 14, 2021 3:52am None seen /LPF None Seen [facility] [address] [place] [address] 90143 Urine Bacteria (Auto) November 14, 2021 3:52am Rare /HPF None Seen [facility] [address] [place] [address] 61254 Sodium Level November 16, 2021 5:35am 137 mmol/L 137-146 [facility] [address] [place], [place] [address] Potassium Level November 16, 2021 5:35am 4.2 mmol/L 3.5-5.3 [facility] [address] [place] [address] 35279 Chloride Level November 16, 2021 5:35am 99 mmol/L 98-107 [facility] [address] [place] [address] 78086 Carbon Dioxide Level November 16, 2021 5:35am 27 mmol/L 23-32 [facility] [address] [place] [address] 02496 Anion Gap November 16, 2021 5:35am 11 mmol/L 5-15 [facility] [address] [place] [address] 09005 Blood Urea Nitrogen November 16, 2021 5:35am 31 mg/dl 5-25 [facility] [address] [place] [address] 85899 Creatinine November 16, 2021 5:35am 1.2 mg/dL 0.5-1.1 [facility] [address] [place] [address] 35011 Estimated Creatinine Clearance November 16, 2021 5:35am 65.4 ml/min This value is calculated by Cockcroft Gault Equation using ideal body weight. This result is dependent on an accurate patient height and weight which is obtained from patients medical record. Federicocroft, DHelenaW. and M.H. Gamauricio. Prediction of creatinine clearance from serum creatinine. Nephron. 1976. 16(1):31-41. [facility] [address] [address] Estimated GFR () November 16, 2021 5:35am 56 >60 [facility] [address] [place] [address] 44339 Estimated GFR (Non- November 16, 2021 5:35am 48 >60 [facility] [address] [place] [address] 93308 BUN/Creatinine Ratio November 16, 2021 5:35am 25.8 10.0-20.0 [facility] [address] [place] [address] 80400 Glucose Level November 16, 2021 5:35am 97 mg/dL 70-100 [facility] [address] [place], [place] [address] Calcium Level November 16, 2021 5:35am 9.6 mg/dl 8.6-10.3 [facility] [address] [place], [place] [address] Magnesium Level November 16, 2021 5:35am 2.5 mg/dL 1.8-2.5 [facility] [address] [place], [place] [address] Total Bilirubin November 14, 2021 3:16pm < 0.2 mg/dl <1.1 [facility] [address] [place], [place] [address] Aspartate Amino Transf (AST/SGOT) November 14, 2021 3:16pm 19 U/L 15-41 [facility] [address] [place], [place] [address] Alanine Aminotransferase (ALT/SGPT) November 14, 2021 3:16pm 12 U/L 14-54 [facility] [address] [place], [place] [address] Troponin T High Sensitivity November 13, 2021 9:45pm 7 ng/L <8 Normal range: Females <9 ng/L Males <14 ng/L Values greater than or equal to 52 ng/L indicates acute myocardial injury/infarct ion Values between '10 and 51 ng/L' (for females) or '15 and 51 ng/L' (for males) require clinical correlation and is not diagnostic of acute myocardial injury. Consider repeat at 1 and 3 hours. A dynamic increase of ? greater than 5 ng/L? at 1 hour or 3 hours indicates of acute myocardial injury/infarct ion. For a patient with an estimated GFR of less than 30 mL/min/1.73 m2 or receiving dialysis, a dynamic increase of greater than 20% at 3 hours indicates acute myocardial injury. A value of less than 9 ng/L (in females) or less than 14 ng/L (in males) with a dynamic change of less than 3 ng/L, greater than 3 hours after symptom onset, generally rules out acute myocardial injury/infarct ion. Refer to Chest Pain order sets for additional clinical decision support (using the HEART score for the ED or the JESUS score for the inpatient setting). [facility] [address] [place] [address] 30897 EW-Tut-I-Type Natriuretic Peptide November 13, 2021 9:45pm 153 pg/mL 0-900 The half-life of plasma BNP is significantly increased in patients with compromised renal function. [facility] [address] [place] [address] 95265 Total Protein November 14, 2021 3:16pm 7.6 g/dL 6.4-8.3 [facility] [address] [place] [address] 11152 Albumin November 14, 2021 3:16pm 3.5 g/dl 4.0-5.0 [facility] [address] [place] [address] 94878 Albumin/Globulin Ratio November 14, 2021 3:16pm 0.9 1.0-2.6 [facility] [address] [place] [address] 29987 Triglycerides Level November 14, 2021 3:16pm 179 mg/dL <150 151 - 199 mg/dL = Borderline High [facility] [address] [place] [address] 58660 Cholesterol Level November 14, 2021 3:16pm 189 mg/dl <199 <200 mg/dL = Desirable [facility] [address] [place] [address] 75774 LDL Cholesterol, Calculated November 14, 2021 3:16pm 117 mg/dl <129 [facility] [address] [place] [address] 92357 HDL Cholesterol November 14, 2021 3:16pm 36 mg/dL >40 < 40 mg/dl: Low HDL-cholestero l(major risk factor for CHD) >/= 60 mg/dl: High HDL-cholestero l(negative risk factor for CHD) HDL-cholestero l is affected by a number of factors, e.g., smoking, excercise, hormones, sex and age. [facility] [address] [place] [address] 06949 Cholesterol Ratio (LDL/HDL) November 14, 2021 3:16pm 3.3 LDL/HDL Interpretation : Ratio Men Women 1/2 Average 1.00 1.47 Average 3.55 3.22 2X Average 6.25 5.03 3X Average 7.99 6.14 [facility] [address] [place] [address] 13216 Cholesterol/HDL Ratio November 14, 2021 3:16pm 5.3 Cholesterol/HD L Interpretation : Ratio Men Women 1/2 Average 3.43 3.27 Average 4.97 4.44 2X Average 9.55 7.05 3X Average 23.39 11.04 [facility] [address] [place] [address] 02879 Alkaline Phosphatase November 14, 2021 3:16pm 47 U/L 35-104 [facility] [address] [place] [address] 80334 Thyroid Stimulating Hormone (Reflex November 14, 2021 3:16pm 1.95 uIU/mL 0.34-5.60 [facility] [address] [place] [address] 72515 Bedside Glucose November 15, 2021 8:35pm 133 mg/dl 70-100 NOTE: Any discrepancy between finger stick glucose result and patient's clinical presentation should be confirmed by the laboratory. [facility] [address] [place] [address] 60599 Microbiology Results Procedure Source Result Collection Date/Time Result Date/Time Result Comment Performing Site Urine Culture Urine,Miri n Catch Mixed janis November 16, 2021 9:36am [facility] [address] [place] [address] 72386 Diagnostic Imaging Reports Report Dictated Date/Time Dictated By Status Radiology Report November 13, 2021 10:32pm Italia Bales MD completed [address] [address] Patient Name: Alysa Luevano Medical Record#: [id number] 1 Address: [address] [place] [address] City/State/Zip: [place] [address]: Rhonda Rodrigues MD Insurance: [facility] (Medicaid) /Age/Sex: 1960/61/F Self Pay Admit/Reg Date: 11/13/[address]: Juvenal Fritz Location: ED.AH/ PCP: Agata Reza MD Date of Service: 11/13/21 Order (s): XR chest 1V portable CPT Code: 31216 Report Number: [id number] Reason for Exam: Chest Pain PROCEDURE INFORMATION: Exam: XR Chest Exam date and time: 11/13/2021 9:54 PM Age: 61 years old Clinical indication: Pain; Chest pressure; Additional info: Chest pain TECHNIQUE: Imaging protocol: Radiologic exam of the chest. Views: 1 view. COMPARISON: No relevant prior studies available. FINDINGS: Limitations: Increased body habitus with overlying soft tissues obscuring the thoracic cavity. Lungs: Suggestion of mild central vascular congestion. Mild bilateral lower lobe opacities. Pleural spaces: No pleural effusion. No pneumothorax. Heart/Mediastinum: Heart is probably borderline in size. Bones/joints: Unremarkable. IMPRESSION: 1. Suggestion of mild central vascular congestion. 2. Mild bilateral lower lobe opacities. This may be secondary to the overlying soft tissues or possibly atelectasis/infiltrate. This document has been electronically signed by ad Radiologist ITALIA BALES MD Dictated By: Italia Bales MD 11/13/212231 Signed By: Italia Bales MD 11/13/212231 TD/TT: 11/13/212231Tech: [id number] cc: ANTHONY RAMIREZ* Agata Reza MD; Reyna Rodrigues MD Report Dictated Date/Time Dictated By Status Radiology Report November 13, 2021 11:42pm Italia Bales MD completed [address] [address] Patient Name: Alysa Luevano Medical Record#: [id number] 1 Address: [address] [place] [address] City/State/Zip: [place] [address]: Rhonda Rodrigues MD Insurance: [facility] (Medicaid) /Age/Sex: 1960/61/F Self Pay Admit/Reg Date: 11/13/[address]: Juvenal Fritz Location: ED.AH/ PCP: Agata Reza MD Date of Service: 11/13/21 Order (s): CT head stroke wo contrast CPT Code: 26316 Report Number: [id number] Reason for Exam: R sided numbness, TIA ADDENDUM The findings were verbally communicated via telephone conference with Renya Rodrigues at 11:46 PM EDT on 11/13/2021. The findings were acknowledged and understood. This document has been electronically signed by [facility] Radiologist ITALIA BALES MD Addendum Dictated By: Italia Bales MD Addendum Signed By: Italia Bales MD 11/13/212345 DD/ /30/2345 TD/TT: 11/13/2107/30/2345 PROCEDURE INFORMATION: Exam: CT Head Without Contrast Exam date and time: 11/13/2021 11:05 PM Age: 61 years old Clinical indication: Stroke-like symptoms; Right upper extremity and right lower extremity numbness/paresthesia; Additional info: R sided numbness, TIA TECHNIQUE: Imaging protocol: Computed tomography of the head without contrast. Radiation optimization: All CT scans at this facility use at least one of these dose optimization techniques: automated exposure control; mA and/or kV adjustment per patient size (includes targeted exams where dose is matched to clinical indication); or iterative reconstruction. Other technique: STROKE PROTOCOL was implemented. COMPARISON: No relevant prior studies available. FINDINGS: Brain: There is intracranial vascular calcifications. Cerebral ventricles: No ventriculomegaly. Paranasal sinuses: There is no significant mucosal thickening of the visualized paranasal sinuses. No air-fluid levels are identified. Mastoid air cells: Visualized mastoid air cells are well aerated. Bones/joints: Degenerative changes of the right TMJ. No acute fracture. Soft tissues: Unremarkable. IMPRESSION: No acute intracranial abnormalities. ASSESSMENT: ASPECTS ([place] Stroke Program Early CT Score) is 10. This document has been electronically signed by [facility] Radiologist ITALIA BALES MD Dictated By: Italia Bales MD 11/13/212341 Signed By: Italia Bales MD 11/13/21 2343 TD/TT: 11/13/21 234Tech: [id number] cc: CYNTHIA; ASHLEY* Agata Reza MD; Reyna Rodrigues MD Report Dictated Date/Time Dictated By Status Radiology Report November 13, 2021 11:43pm Italia Bales MD completed [facility] [address] [place] [address] Patient Name: Alysa Luevano Medical Record#: [id number] 1 Address: [address] [place] [address] City/State/Zip: [place] [address]: Rhonda Rodrigues MD Insurance: [facility] (Medicaid) /Age/Sex: 1960/61/F Self Pay Admit/Reg Date: 11/13/[address]: Juvenal Fritz Location: ED.AH/ PCP: Agata Reza MD Date of Service: 11/13/21 Order (s): CT angio neck stroke CPT Code: 93302 Report Number: [id number] Reason for Exam: R sided numbness, TIA PROCEDURE INFORMATION: Exam: CTA Neck With Contrast Exam date and time: 11/13/2021 11:07 PM Age: 61 years old Clinical indication: Stroke-like symptoms; Right upper extremity and right lower extremity numbness/paresthesia; Additional info: R sided numbness, TIA TECHNIQUE: Imaging protocol: Computed tomographic angiography of the neck with contrast. 3D rendering (Not supervised by radiologist): MIP and/or 3D reconstructed images were created by the technologist. Radiation optimization: All CT scans at this facility use at least one of these dose optimization techniques: automated exposure control; mA and/or kV adjustment per patient size (includes targeted exams where dose is matched to clinical indication); or iterative reconstruction. Contrast material: OMNI 350; Contrast volume: 80 ml; Contrast route: INTRAVENOUS (IV); COMPARISON: CT head stroke wo con 11/13/2021 11:05 PM FINDINGS: Limitations: Increased body habitus. Mild streak artifact. Right common carotid artery: No stenosis. No dissection or occlusion. Right internal carotid artery: No stenosis of the extracranial segment. No dissection or occlusion. Right external carotid artery: No occlusion or stenosis of the origin. Left common carotid artery: No stenosis. No dissection or occlusion. Left internal carotid artery: No stenosis of the extracranial segment. No dissection or occlusion. Left external carotid artery: No occlusion or stenosis of the origin. Right vertebral artery: No stenosis. No dissection or occlusion. Left vertebral artery: No stenosis. No dissection or occlusion. Soft tissues: Normal. No significant soft tissue swelling. Bones/joints: There is some degenerative changes of the spine. Lungs: No focal consolidation of the visualized upper lungs. IMPRESSION: No obvious hemodynamically significant stenosis of the arteries of the neck. No dissection REFERENCES: NASCET CRITERIA. The degree of stenosis in the cervical segment of the internal carotid artery is based on NASCET criteria. Normal is no stenosis. Mild is less than 50% stenosis. Moderate is 50-69% stenosis. Severe is 70% to 99% stenosis. Total occlusion is no detectable patent lumen. . This document has been electronically signed by [facility] Radiologist ITALIA BALES MD Dictated By: Italia Bales MD 11/13/212342 Signed By: Italia Bales MD 11/13/212343 TD/TT: 11/13/212342Tech: [id number] cc: ANTHONY RAMIREZ* Agata Reza MD; Reyna Rodrigues MD Report Dictated Date/Time Dictated By Status Radiology Report November 14, 2021 12:24am Italia Bales MD completed [address] [address] Patient Name: Alysa Luevano Medical Record#: [id number] 1 Address: [address] [place] [address] City/State/Zip: [place] [address]: Rhonda Rodrigues MD Insurance: [facility] (Medicaid) /Age/Sex: 1960/61/F Self Pay Admit/Reg Date: 11/13/[address]: Juvenal Fritz Location: ED.AH/ PCP: Agata Reza MD Date of Service: 11/13/21 Order (s): CT angio head stroke CPT Code: 01197 Report Number: [id number] Reason for Exam: R sided numbness, TIA ADDENDUM The findings were verbally communicated via telephone conference with Reyna Rodrigues at 12:26 AM EDT on 11/14/2021. The findings were acknowledged and understood. This document has been electronically signed by [facility] Radiologist ITALIA BALES MD Addendum Dictated By: Italia Bales MD Addendum Signed By: Italia Bales MD 11/14/2125 DD/ /30/25 TD/TT: 11/14/2108/30/25 PROCEDURE INFORMATION: Exam: CTA Head With Contrast, Arteriography Exam date and time: 11/13/2021 11:07 PM Age: 61 years old Clinical indication: Stroke-like symptoms; Right upper extremity and right lower extremity numbness/paresthesia; Additional info: R sided numbness, TIA TECHNIQUE: Imaging protocol: Computed tomographic angiography of the head with contrast. Exam focused on the arteries. 3D rendering (Not supervised by radiologist): MIP and/or 3D reconstructed images were created by the technologist. Radiation optimization: All CT scans at this facility use at least one of these dose optimization techniques: automated exposure control; mA and/or kV adjustment per patient size (includes targeted exams where dose is matched to clinical indication); or iterative reconstruction. Contrast material: OMNI 350; Contrast volume: 80 ml; Contrast route: INTRAVENOUS (IV); COMPARISON: CT head stroke wo con 11/13/2021 11:05 PM FINDINGS: ANTERIOR CIRCULATION: Right internal carotid artery: Moderate narrowing of portions of the cavernous right ICA secondary to atherosclerotic calcifications. No occlusion. No obvious aneurysm. Right middle cerebral artery: Unremarkable. No occlusion or significant stenosis. No aneurysm. Right anterior cerebral artery: Unremarkable. No occlusion or significant stenosis. No aneurysm. Left internal carotid artery: Moderate to severe narrowing of portions of the cavernous left ICA secondary to atherosclerotic calcifications. No occlusion. No obvious aneurysm. Left middle cerebral artery: Unremarkable. No occlusion or significant stenosis. No aneurysm. Left anterior cerebral artery: Unremarkable. No occlusion or significant stenosis. No aneurysm. POSTERIOR CIRCULATION: Right vertebral artery: Unremarkable. No occlusion or significant stenosis. No aneurysm. Left vertebral artery: Unremarkable. No occlusion or significant stenosis. No aneurysm. Basilar artery: Unremarkable. No occlusion or significant stenosis. No aneurysm. Right posterior cerebral artery: Unremarkable. No occlusion or significant stenosis. No aneurysm. Left posterior cerebral artery: Unremarkable. No occlusion or significant stenosis. No aneurysm. Brain: No definite mass, mass effect, or midline shift. Cerebral ventricles: No ventriculomegaly. Bones/joints: Unremarkable. No acute fracture. Soft tissues: Unremarkable. IMPRESSION: 1. 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 2. Moderate narrowing of portions of the cavernous right ICA. 3. No large vessel occlusion. No obvious aneurysm. This document has been electronically signed by ad Radiologist ITALIA BALES MD Dictated By: Italia Bales MD 11/14/2123 Signed By: Italia Bales MD 11/14/2123 TD/TT: 11/14/2123Tech: [id number] cc: CYNTHIA; ASHLEY* Agata Reza MD; Reyna Rodrigues MD Report Dictated Date/Time Dictated By Status Echocardiogram November 14, 2021 8:01am [place] [address] Patient Name: Alysa Luevano Medical Record#: [id number] 1 Address: [address] [place] [address] City/State/Zip: [place] [address]: Chad Naqvi MD Insurance: [facility] (Medicaid) /Age/Sex: 1960/61/F Self Pay Admit/Reg Date: 11/14/[address]: Demarcus Grigsby MD Location: [address] PCP: Agata Reza MD Date of Service: 11/14/21 Order (s): Echo TTE comp w/dop w contrast CPT Code: C8929 Report Number: [id number] Reason for Exam: tia Transthoracic Echocardiography Report (TTE) Demographics Patient Name Bassem Watt Gender Female MR Number [id number] Date of 1960 Age 61 year(s) Room Number QA0105 Height 66 inches Date of study 11/14/2021 Weight 280.01 pounds Referring BSA 2.31 m^2 Interpreting MD Jeniffer Guardado MD BMI 45.19 kg/m^2 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 Mild mitral regurgitation. No aortic stenosis. No aortic regurgitation. The aortic valve is not well visualized. [id number] tricuspid regurgitation. Pulmonary artery systolic pressure is estimated to be moderately elevated (49 mmHg). The pulmonic valve is not visualized. Left atrium is normal in size. Right atrium is normal in size. Contrast study with agitated saline is negative, suggesting absence of intracardiac shunt at atrial level. Overall left ventricular systolic function is normal (LVEF 55 -60%). Left ventricular cavity is normal in size. No left ventricular hypertrophy. No regional wall motion abnormalities present. Diastolic function is normal. Right ventricular structure and systolic function are normal. There is no pericardial effusion. Aorta: root (at sinuses of Valsalva) is normal in diameter, ascending aorta is normal in diameter. Inferior vena cava is dilated (>18 mm) in diameter and collapses < 50% on inspiration, which is consistent with right atrial pressure of 15 mm Hg. Findings MITRAL VALVE: Leaflets of mitral valve are mildly thickened. Mild mitral regurgitation. AORTIC VALVE: No aortic stenosis. No aortic regurgitation. The aortic valve is not well visualized. TRICUSPID VALVE: [id number]-[id number] tricuspid regurgitation. Pulmonary artery systolic pressure is estimated to be moderately elevated (49 mmHg). PULMONIC VALVE: The pulmonic valve is not visualized. ATRIA: Left atrium is normal in size. Right atrium is normal in size. Contrast study with agitated saline is negative, suggesting absence of intracardiac shunt at atrial level. LEFT VENTRICLE: Overall left ventricular systolic function is normal (LVEF 55 -60%). Left ventricular cavity is normal in size. No left ventricular hypertrophy. No regional wall motion abnormalities present. Diastolic function is normal. EF ESTIMATED: 60% RIGHT VENTRICLE: Right ventricular structure and systolic function are normal. PERICARDIAL AND PLEURA: There is no pericardial effusion. MISCELLANEOUS: Aorta: root (at sinuses of Valsalva) is normal in diameter, ascending aorta is normal in diameter. Inferior vena cava is dilated (>18 mm) in diameter and collapses < 50% on inspiration, which is consistent with right atrial pressure of 15 mm Hg. Type of Study TTE procedure: Echo complete w contrast (MT 6.1). Technical Quality: Adequate visualizationStudy Location: Telemetry Indications: 10 - Transient Cerebral Ischemic Attack, Unspecified - G45.9. Patient Status: Routine Atria LA Dimension: 4 cm LA/Aorta: 1.6 Left Ventricle Diastolic Dimension: 4.74 cm Systolic Dimension: 3.31 cm Septum Diastolic: 0.647 cm PW Diastolic: 0.804 cm FS: 30.17 % EF Estimated: 60% Right Ventricle RV Systolic Pressure: 48.64 mmHg Miscellaneous Aorta Aortic Root: 2.5 cm Ascending Aorta: 2.6 cm Mitral Valve Peak E-Wave: 128 cm/s Peak A-Wave: 77.7 cm/s E/A Ratio: 1.65 Peak Gradient: 6.55 mmHg Deceleration Time: 211 msec E' Medial Velocity: 7.57cm/s E/E' Medial Velocity: 16.9 E' Lateral Velocity: 7.68cm/s E/E' Lateral Velocity: 16.7 Aortic Valve Peak Velocity: 147 cm/s Mean Velocity: 105 cm/s Peak Gradient: 8.64 mmHg Mean Gradient: 5 mmHg AV VTI: 32.8 cm Tricuspid Valve TR Velocity: 290 cm/s Estimated RAP: 15 mmHg TR Gradient: 33.64 mmHg Pulmonic Valve Estimated PASP: 48.64 mmHg LVOT Mean Velocity: 64.8 cm/s Mean Gradient: 2 mmHg LVOT VTI: 16.8 cm Signature Dictated By: Jeniffer Guardado MD 11/14/21800 Signed By: Jeniffer Guardado MD 11/14/21 1641 TD/TT: 11/14/21800Tech: [email or web address] cc: TESSIE; RAJI Grigsby MD; Agata Reza MD; Jeniffer Guardado MD Report Dictated Date/Time Dictated By Status Radiology Report November 15, 2021 9:36am Jose Alberto Bangura MD completed [facility] [address] [place] [address] Patient Name: Alysa Luevano Medical Record#: [id number] 1 Address: [address] [place] [address] City/State/Zip: [place] [address]: Chad Naqvi MD Insurance: [facility] (Medicaid) /Age/Sex: 1960/61/F Self Pay Admit/Reg Date: 11/14/[address]: Demarcus Grigsby MD [id number] PCP: Agata Reza MD Date of Service: 11/15/21 Order (s): MR head/brain wo contrast CPT Code: 98582 Report Number: [id number] Reason for Exam: tia ADDENDUM Impression to Dr. Chalo Naqvi on November 15, 2021 at 12:32 PM by the canopy PRA. Addendum Dictated By: Jose Alberto Bangura MD Addendum Signed By: Jose Alberto Bangura MD 11/15/211244 DD/ /29/1242 TD/TT: 11/15/2109/29/1242 MR head/brain wo contrast INDICATION: tia Technique: Department protocol for a MRI of the head without IV contrast was performed. Comparison:None Correlation: Noncontrast head CT performed November 14, 2021 Findings: There is no intracranial hemorrhage, mass, mass effect or shift of the normally midline structures. There is no hydrocephalus. There is a focus of increased signal intensity on diffusion-weighted imaging identified within the left thalamus measuring approximately 1.1 x 0.6 cm. There is corresponding decreased signal intensity on the ADC map. There is corresponding T2 and FLAIR hyperintensity. There is no corresponding susceptibility dropout. This findings compatible with an acute to subacute lacunar infarcts with associated edema and without evidence of hemorrhagic tra nsformation. There is a punctate smaller focus of increased signal intensity on diffusion-weighted imaging with corresponding decreased signal intensity on the ADC map within the cortex and subcortical white matter of the junction of the right parietal and temporal lobes measuring approximately 4 mm. There is possible minimal T2 corresponding intensity suggestive of edema. This finding is compatible with acute lacunar infarct. There are patchy foci of T2 and FLAIR hyperintensities within periventricular and subcortical white matter both hemispheres. This is nonspecific though suggestive of minimal chronic microangiopathic ischemic change. The basal cisterns are intact. Flow voids of the intracranial internal carotid and vertebral arteries are well-maintained. There are prominent perivascular spaces within the basal ganglia. The orbits are symmetric. Visualized paranasal sinuses are clear of air-fluid levels. This fluid signal intensity within the left mastoid air cells. The right mastoid air cells are clear. The marrow signal intensity of the calvarium is unremarkable. Impression: There is an acute to subacute lacunar infarct involving the left thalamus measuring up to 1.1 cm. There is an additional acute appearing lacunar infarct involving the cortex and subcortical white matter of the junction of the right parietal and temporal lobes measuring up to 4 mm. There is no imaging evidence of hemorrhagic transformation. There is fluid signal intensity within the left mastoid cells. Dictated By: Jose Alberto Bangura MD 11/15/21935 Signed By: Jose Alberto Bangura MD 11/15/2147 TD/TT: 11/15/2136Tech: [id number] cc: GABBY RAMIREZ* Demarcus Grigsby MD; Agata Reza MD; Taina Naqvi MD Report Dictated Date/Time Dictated By Status Electrocardiogram November 15, 2021 7:22pm Jeniffer Guardado MD completed [address] [address] Patient Name: Alysa Luevano Medical Record#: [id number] 1 Address: [address] [place] [address] City/State/Zip: [place] [address]: Chad Naqvi MD Insurance: [facility] (Medicaid) /Age/Sex: 1960/61/F Self Pay Admit/Reg Date: 11/15/[address]: Juvenal Dubon [id number] PCP: Agata Reza MD Date of Service: 11/15/21 Order (s): EKG Electrocardiogram CPT Code: 10440 Report Number: [id number] Reason for Exam: PAIN JUNCTIONAL BRADYCARDIA with PACs Comparison Summary: No serial comparison made Summary: Abnormal ECG Dictated By: Jeniffer Guardado MD 11/15/211921 Signed By: Jeniffer Guardado MD 11/16/212047 TD/TT: 11/15/211921Tech: [email or web address] cc: LUIS RAMIREZ* Agata Reza MD; Taina Naqvi MD Vital Signs Vital Reading Result Reference Range Collection Date/Time Height 167.64 cm November 14, 2021 6:32am Weight 127.00 kg November 13, 2021 9:42pm Body Temperature 96.6 [degF] 97.6-99.6 November 172021 9:07am Heart Rate 65 /min 60-90 November 17, 2021 11:33am Respiratory rate 17 /min 12-24 November 172021 11:33am Oxygen saturation by Pulse oximetry 99 % 95-100 November 17, 2021 11:41am BP Systolic 125 mm[Hg] 90-140 November 17, 2021 9:07am BP Diastolic 51 mm[Hg] 60-90 November 17, 2021 9:07am BMI (Body Mass Index) 54.7 kg/m2 2021 9:42pm Advance Directives Advance Directive Response Recorded Date/ Time Pt has Medical Orders for Li fe Sustaining Tx Form (MOLST)? No November 14, 2021 10:59am Advance Directives No November 10:59am Health Care Proxy No November 14, 2021 10:59am Insurance Providers Guarantor Alysa Luevano Address [address] [place] [address] Contact Info. Home Phone: Payer Policy Id Coverage Id Subscriber's Name Subscriber Id Effective Date Expiration Date [facility] (Medicaid) [id number] Alysa Luevano [id number] Encounters Encounter Location(s) Arrival/Admit Date Discharge/Depart Date Provider(s) Discharged Inpatient [facility] November 15, 2021 10:43am November 17, 2021 12:23pm Taina Naqvi MD Recent Diagnosis Onset Date Bradycardia Cerebrovascular disease Numbness TIA (transient ischemic attack) Weakness HTN (hypertension) Obesity Functional Status Observation Response Date Recorded Assistive Devices Cane November 14, 2021 10:59am Ambulation Distance November 11:08am Ambulation Tolerance Fair November 162021 11:06am Ambulation Tolerance Fair November 172021 11:08am Bathing Type [facility] Date of Last Bowel Movement 11/15/21 [facility] ember 2021 1:20am Oral Care Mouth Rinse November 16 8:30pm Toileting Ability Maximum Assistance November 172021 10:40am Mental Status Observation Response Date Recorded Arousable To Name November 17 11:41am Patient Behavior Appropriate November 17, 2021 11:41am Cooperative November 17 11:41am Comprehension Ability Understands Concepts 2021 11:41am Level of Consciousness Awake November 17, 2021 11:41am Alert November 17 11:41am Appropriate November 17 11:41am Follows Commands November 17, 2021 11:41am Assessments Diagnosis Onset Date Resolution Status Bradycardia acute Cerebrovascular disease acut e Numbness acute TIA (transient ischemic attack) acute Weakness acute HTN (hypertension) chronic Obesity chronic Plan of Treatment Future Tests Future scheduled test information is unavailable Pending Tests Test Name Date ordered VTE Risk Assessment Medical November 3:09am Future Visits Future appointment information is unavailable Referrals to Other Providers Reason for Referral Referral Start Date Provider Provider Contact Information Provider Address 6 months Rachna Norris MD Work Phone: [address] [place] [address] Agata Reza MD Work Phone: [address] [place] [phone] Future Procedures Procedure Name Scheduled Date Hospital Level of Care November 15 10:43am Occupational Therapy Consult November 142021 9:57am Physical Therapy Consult November 14, 2021 3:09am Activity November 14, 2021 3:10am Discharge November 16, 2021 3:50pm Discharge November 17, 2021 10:43am ED Transfer of Care to Adm Physician Iliana perea 2021 12:33am Elevate Head of Bed November 13, 2021 10:32pm Saline Lock Insert/Manage November 13, 2021 9:47pm Neurology Consult November 14, 2021 3:09am Oxygen Initiate/Maintain November 13, 2021 10:32pm Oxygen Initiate/Maintain November 13, 2021 9:47pm Patient Preference for Pain Management Laura pal 2021 3:09am Provider Order to Nurse November 14, 2 022 10:30am Continuous Pulse Oximetry November 13, 2021 9:47pm Continuous Pulse Oximetry November 13, 2021 10:32pm Sequential Compression Device November 14, 2021 3:09am Vascular Surgery Consult November 14, 2021 2:33pm Future Medications Future medication information is unavailable Patient Instructions Patient instructions are unavailable Goals Acute Goals Absence of falls Including: - Early & often mobilization when appropriate - Passive/active range of motion as appropriate - toileting schedule implementation - implementation of fall risk interventions Alleviation of anxiety Including: -Utilization of coping skills -Demonstrates/verbalizes decreased anxiety Management Strategy-PT Management Strategy-OT Skin integrity intact - No evidence of impaired skin integrity - Patient/caregivers participating in preventative measures Able to achieve maximum mobi lity level Including: - Understands safety - Demonstrates progress in improved mobility - Demonstrates correct use of mobility devices if appropriate - Understands & accepts limitations & plan for progression as appropriate
--- OUTSIDE RECORDS SUMMARY | 2022-08-06 05:06 | XMS_ITS | Continuity of Care Document ---
Author Name Unknown Address [address] [place] [address] Phone Organization [facility] Address [address] [place] [address] Phone Care Team Providers Care Sound Effects Supervisor Name Role Phone MD Agata Reza Primary Care Provider MD Reyna Rodrigues Emergency Provider [phone] Security Team Lead, Twan Other Provider Unavailable MD Taina Naqvi Attending Provider [phone] MD Ken Norrisim Other Provider Chief Complaint and Reason for Visit Chief Complaint TIA Reason for Visit Cerebrovascular dise ase Numbness TIA (transient ischemic attack) Weakness HTN (hypertension) Obesity Allergies, Adverse Reactions, Alerts Allergen Type Severity Reaction Last Updated Verified Status aspirin Allergy Unknown November 13, 2021 9:42pm Yes Active Sulfa (Sulfonamide Antibiotics) Allergy Unknown November 13 9:42pm Yes Active Social History Smoking Status Unknown if ever smoked Observation Status Observation Response Date of Response Lives With Spouse November 14 10:59am Living Situation Apartment November 14, 2021 5:16am Services Prior to Admission Home Health Aide Iliana banner 2021 10:59am Additional Data Assigned Sex Female Problems Active Problems Medical Problem Onset Date Status Numbness Active Cerebrovascular disease Active TIA (transient ischemic attack) Active Weakness Active HTN (hypertension) Active Obesity Active Medications Medication Status Dose Units Route Directions Qty Days St art Date End Date Instructions Cetirizine Active 10 MG PO DAILY [facility] 2021 12:00am Metoprolol Succinate Active 200 MG PO DAILY [facility] 2021 12:00am Chlorthalidon e Discontin ued 25 MG PO DAILY [facility] [place] [place] 2021 12:00am [facility] 2021 12:44a m Chlorthalidon e Active 75 MG PO DAILY [facility] 2021 12:00am Acetaminophen Active 500 MG PO DAILY [facility] 2021 12:00am Pantoprazole Active 40 MG PO DAILY [facility] 2021 12:00am Omeprazole Active 20 MG PO DAILY [facility] 2021 12:00am Verapamil Active 240 MG PO DAILY [facility] 2021 12:00am Fluticasone Propionate (Flovent Hfa) 220 mcg/actuation HFA aerosol inhaler Active 1 INH INH TWICE A DAY [facility] 2021 12:00am Albuterol Sulfate (Proair Hfa) 90 mcg/actuation HFA aerosol inhaler Active 1 INH INH EVERY 6 HOURS [facility] 2021 12:00am Lisinopril Active 40 MG PO DAILY [facility] 2021 12:00am Topiramate Active 100 MG PO DAILY [facility] 2021 12:00am Rosuvastatin Active 20 MG PO DAILY [facility] 2021 12:00am Bupropion Hcl Active 300 MG PO DAILY [facility] 2021 12:00am Cholecalcifer ol (Vitamin D3) (Vitamin D3) 125 mcg (5,000 unit) tablet Active 125 MCG PO DAILY [facility] 2021 12:00am Procedures Procedure Date Performed Status EKG ED Electrocardiogram November 13, 2021 9:4 7pm completed XR chest 1V portable November 13, 2021 9:47pm completed CT angio head stroke November 13, 2021 10:32pm completed CT angio neck stroke November 13, 2021 10:32pm completed CT head stroke wo contrast November 13, 2021 1 0:32pm completed MR head/brain wo contrast November 14, 2021 3: 09am active Echo TTE comp w/dop w contrast November 14 3:09am completed Urine Culture active Relevant Diagnostic Tests and/or Laboratory Data Laboratory Results Test Date/Time Result Interpretation Reference Range Result Comment Performing Site Add-On Test Request November 13, 2021 10:48pm Added test [facility] [address] [place] [address] 80381 White Blood Count November 14, 2021 3:16pm 12.4 X10 3/uL 4.5-11.0 [facility] [address] [place] [address] 76886 Red Blood Count November 14, 2021 3:16pm 4.49 X10 6/uL 3.70-5.00 [facility] [address] [place] [address] 99729 Hemoglobin November 14, 2021 3:16pm 13.1 g/dl 11.0-16.0 [facility] [address] [place] [address] 93702 Hematocrit November 14, 2021 3:16pm 40.9 % 33.5-45.0 [facility] [address] [place] [address] 63079 Mean Corpuscular Volume November 14, 2021 3:16pm 91.1 fl 80.0-100.0 [facility] [address] [place] [address] 04524 Mean Corpuscular Hemoglobin November 14, 2021 3:16pm 29.2 pg 27.0-34.0 [facility] [address] [place] [address] 99058 Mean Corpuscular Hemoglobin Concent November 14, 2021 3:16pm 32.0 g/dl 31.0-36.0 [facility] [address] [place] [address] 81651 Red Cell Distribution Width November 14, 2021 3:16pm 13.5 % 11.5-15.0 [facility] [address] [place] [address] 46818 Platelet Count November 14, 2021 3:16pm 386 X10 3/uL 150-400 [facility] [address] [place] [address] 44460 Immature Granulocyte % (Auto) November 14, 2021 3:16pm 1.1 % [facility] [address] [place] [address] 82826 Neutrophils (%) (Auto) November 14, 2021 3:16pm 75.9 % [facility] [address] [place] [address] 68330 Lymphocytes (%) (Auto) November 14, 2021 3:16pm 15.7 % [facility] [address] [place] [address] 38244 Monocytes (%) (Auto) November 14, 2021 3:16pm 6.2 % [facility] [address] [place] [address] 17475 Eosinophils (%) (Auto) November 14, 2021 3:16pm 0.6 % [facility] [address] [place] [address] 69278 Basophils (%) (Auto) November 14, 2021 3:16pm 0.5 % [facility] [address] [place] [address] 27496 Immature Granulocyte # (Auto) November 14, 2021 3:16pm 0.14 X10 3/uL 0.00-0.09 [facility] [address] [place] [address] 17725 Neutrophils # (Auto) November 14, 2021 3:16pm 9.4 X10 3/uL 1.5-7.8 [facility] [address] [place] [address] 78797 Lymphocytes # (Auto) November 14, 2021 3:16pm 2.0 X10 3/uL 1.0-4.8 [facility] [address] [place] [address] 57378 Monocytes # (Auto) November 14, 2021 3:16pm 0.8 X10 3/uL 0.0-0.8 [facility] [address] [place] [address] 91498 Eosinophils # (Auto) November 14, 2021 3:16pm 0.1 X10 3/uL 0.0-0.5 [facility] [address] [place] [address] 99229 Basophils # (Auto) November 14, 2021 3:16pm 0.1 X10 3/uL 0.0-0.2 [facility] [address] [place] [address] 24079 Hemoglobin A1c November 14, 2021 3:16pm 5.8 4.3-5.9 [facility] [address] [place] [address] 28093 Estimated Average Glucose (eAG) November 14, 2021 3:16pm 120 mg/dl [facility] [address] [place] [address] 03532 Nucleated Red Blood Cells % November 14, 2021 3:16pm 0.0 /100 WBC 0.0-0.0 [facility] [address] [place] [address] 80728 Urine Color November 14, 2021 3:52am Yellow Yellow [facility] [address] [place] [address] 09802 Urine Clarity November 14, 2021 3:52am Clear Clear [facility] [address] [place] [address] 45319 Urine pH November 14, 2021 3:52am 5.0 5.0-8.0 [facility] [address] [place] [address] 57551 Urine Specific [place] November 14, 2021 3:52am >= 1.030 1.005-1.03 0 [facility] [address] [place] [address] 61637 Urine Blood November 14, 2021 3:52am Negative mg/dL Negative [facility] [address] [place] [address] 27193 Urine Protein November 14, 2021 3:52am Negative mg/dL Negative [facility] [address] [place] [address] 51706 Urine Glucose (UA) November 14, 2021 3:52am Negative mg/dl Negative [facility] [address] [place] [address] 35320 Urine Ketones November 14, 2021 3:52am Negative mg/dL Negative [facility] [address] [place] [address] 30718 Urine Nitrate November 14, 2021 3:52am Negative Negative [facility] [address] [place] [address] 24148 Urine Bilirubin November 14, 2021 3:52am Negative mg/dL Negative [facility] [address] [place] [address] 89012 Urine Urobilinogen November 14, 2021 3:52am 0.2 E.U./dL Normal [facility] [address] [place] [address] 86718 Urine Leukocyte Esterase November 14, 2021 3:52am Moderate mg/dL Negative [facility] [address] [place] [address] 28995 Urine RBC (Auto) November 14, 2021 3:52am None seen /HPF 0-2 [facility] [address] [place] [address] 71066 Urine WBC (Auto) November 14, 2021 3:52am 11-25 /HPF 0-5 [facility] [address] [place] [address] 27940 Urine Epithelial Cells (Auto) November 14, 2021 3:52am 6-10 /HPF 0-5 [facility] [address] [place] [address] 03009 Urine Casts (Auto) November 14, 2021 3:52am None seen /LPF None Seen [facility] [address] [place] [address] 51806 Urine Bacteria (Auto) November 14, 2021 3:52am Rare /HPF None Seen [facility] [address] [place] [address] 55448 Sodium Level November 14, 2021 3:16pm 137 mmol/L 137-146 [facility] [address] [place] [address] 99475 Potassium Level November 14, 2021 3:16pm 4.2 mmol/L 3.5-5.3 Specimen hemolyzed, results affected [facility] [address] [place] [address] 78952 Chloride Level November 14, 2021 3:16pm 100 mmol/L 98-107 [facility] [address] [place] [address] 32083 Carbon Dioxide Level November 14, 2021 3:16pm 24 mmol/L 23-32 [facility] [address] [place] [address] 47833 Anion Gap November 14, 2021 3:16pm 13 mmol/L 5-15 [facility] [address] [place] [address] 19029 Blood Urea Nitrogen November 14, 2021 3:16pm 13 mg/dl 5-25 [facility] [address] [place] [address] 19450 Creatinine November 14, 2021 3:16pm 0.9 mg/dL 0.5-1.1 [facility] [address] [place] [address] 30464 Estimated Creatinine Clearance November 14, 2021 3:16pm 87.2 ml/min This value is calculated by Cockcroft Gault Equation using ideal body weight. This result is dependent on an accurate patient height and weight which is obtained from patients medical record. Louie Morales. and [facility]. Sant[facility]. Prediction of creatinine clearance from serum creatinine. Nephron. 1976. 16(1):31-41. [facility] [address] [facility] [address] Estimated GFR () November 14, 2021 3:16pm 79 >60 [facility] [address] [facility] [address] Estimated GFR (Non- November 14, 2021 3:16pm 68 >60 [facility] [address] [place] [address] 11345 BUN/Creatinine Ratio November 14, 2021 3:16pm 14.4 10.0-20.0 [facility] [address] [place] [address] 50697 Glucose Level November 14, 2021 3:16pm 142 mg/dL 70-100 [facility] [address] [place] [address] 51246 Calcium Level November 14, 2021 3:16pm 9.0 mg/dl 8.6-10.3 [facility] [address] [place] [address] 51927 Total Bilirubin November 14, 2021 3:16pm < 0.2 mg/dl <1.1 [facility] [address] [place] [address] 57048 Aspartate Amino Transf (AST/SGOT) November 14, 2021 3:16pm 19 U/L 15-41 [facility] [address] [place] [address] 91342 Alanine Aminotransferase (ALT/SGPT) November 14, 2021 3:16pm 12 U/L 14-54 [facility] [address] [place] [address] 81679 Troponin T High Sensitivity November 13, 2021 [...] the JESUS score for the inpatient setting). [facility] [address] [facility] [address] IT-Dkv-A-Type Natriuretic Peptide November 13, 2021 9:45pm 153 pg/mL 0-900 The half-life of plasma BNP is significantly increased in patients with compromised renal function. [facility] [address] [facility] [address] Total Protein November 14, 2021 3:16pm 7.6 g/dL 6.4-8.3 [facility] [address] [place] [address] 33163 Albumin November 14, 2021 3:16pm 3.5 g/dl 4.0-5.0 [facility] [address] [place] [address] 63054 Albumin/Globulin Ratio November 14, 2021 3:16pm 0.9 1.0-2.6 [facility] [address] [place] [address] 11564 Triglycerides Level November 14, 2021 3:16pm 179 mg/dL <150 151 - 199 mg/dL = Borderline High [facility] [address] [place] [address] 23126 Cholesterol Level November 14, 2021 3:16pm 189 mg/dl <199 <200 mg/dL = Desirable [facility] [address] [facility] [address] LDL Cholesterol, Calculated November 14, 2021 3:16pm 117 mg/dl <129 [facility] [address] [place] [address] 15741 HDL Cholesterol November 14, 2021 3:16pm 36 mg/dL >40 < 40 mg/dl: Low HDL-cholestero l(major risk factor for CHD) >/= 60 mg/dl: High HDL-cholestero l(negative risk factor for CHD) HDL-cholestero l is affected by a number of factors, e.g., smoking, excercise, hormones, sex and age. [facility] [address] [facility] [address] Cholesterol Ratio (LDL/HDL) November 14, 2021 3:16pm 3.3 LDL/HDL Interpretation : Ratio Men Women 1/2 Average 1.00 1.47 Average 3.55 3.22 2X Average 6.25 5.03 3X Average 7.99 6.14 [facility] [address] [place] [address] 96398 Cholesterol/HDL Ratio November 14, 2021 3:16pm 5.3 Cholesterol/HD L Interpretation : Ratio Men Women 1/2 Average 3.43 3.27 Average 4.97 4.44 2X Average 9.55 7.05 3X Average 23.39 11.04 [facility] [address] [place] [address] 33484 Alkaline Phosphatase November 14, 2021 3:16pm 47 U/L 35-104 [facility] [address] [place], [place] [address] Thyroid Stimulating Hormone (Reflex November 14, 2021 3:16pm 1.95 uIU/mL 0.34-5.60 [facility] [address] [place], [place] [address] Diagnostic Imaging Reports Report Dictated Date/Time Dictated By Status Radiology Report November 13, 2021 10:32pelroy [place] [address] Patient Name: Alysa Luevano Medical Record#: [id number] 1 Address: [address] [place] [address] City/State/Zip: [place] [address]: Rhonda Rodrigues MD Insurance: [facility] (Medicaid) /Age/Sex: 1960/61/F Self Pay Admit/Reg Date: 11/13/[address]: Elroy Fritz Location: ED.AH/ PCP: Agata Reza MD Date of Service: 11/13/21 Order (s): XR chest 1V portable CPT Code: 46654 Report Number: [id number] Reason for Exam: Chest Pain PROCEDURE INFORMATION: [...] has been electronically signed by [facility] Radiologist ROBSON SNOW MD Dictated By: Robson Snow MD 11/13/212231 Signed By: Robson Snow MD 11/13/212231 TD/TT: 11/13/212231Tech: [id number] cc: CYNTHIA; ASHLEY* Agata Reza MD; Reyna Rodrigues MD Report Dictated Date/Time Dictated By Status Radiology Report November 13, 2021 11:42pm [place] [address] Patient Name: Alysa Luevano Medical Record#: [id number] 1 Address: [address] [place] [address] City/State/Zip: [place] [address]: Rhonda Rodrigues MD Insurance: [facility] (Medicaid) /Age/Sex: 1960/61/F Self Pay Admit/Reg Date: 11/13/[address]: Elroy Fritz Location: ED.AH/ PCP: Agata Reza MD Date of Service: 11/13/21 Order (s): CT head stroke wo contrast CPT Code: 80205 Report Number: [id number] Reason for Exam: R sided numbness, TIA ADDENDUM The findings were verbally communicated via telephone conference with Reyna Rodrigues at 11:46 PM EDT on 11/13/2021. The findings were acknowledged and understood. This document has been electronically signed by [facility] Radiologist ROBSON SNOW MD Addendum Dictated By: Robson Snow MD Addendum Signed By: Robson Snow MD 11/13/212345 DD/ /30/2345 TD/TT: 11/13/2107/30/2345 PROCEDURE [...] IMPRESSION: No acute intracranial abnormalities. ASSESSMENT: ASPECTS (Betzaida Stroke Program Early CT Score) is 10. This document has been electronically signed by [facility] Radiologist ROBSON SNOW MD Dictated By: Robson Snow MD 11/13/212341 Signed By: Robson Snow MD 11/13/212342 TD/TT: 11/13/212341Tech: [id number] cc: CYNTHIA; ASHLEY* Agata Reza MD; Reyna Rodrigues MD Report Dictated Date/Time Dictated By Status Radiology Report November 13, 2021 11:43pm Robson Snow MD completed [address] [address] Patient Name: Alysa Luevano Medical Record#: [id number] 1 Address: [address] [place] [address] City/State/Zip: [place] [address]: Rhonda Rodrigues MD Insurance: [facility] (Medicaid) /Age/Sex: 1960/61/F Self Pay Admit/Reg Date: 11/13/[address]: Elroy Fritz Location: ED.AH/ PCP: Agata Reza MD Date of Service: 11/13/21 Order (s): CT angio neck stroke CPT Code: 23979 Report Number: [id number] Reason for Exam: R sided numbness, TIA [...] has been electronically signed by [facility] Radiologist ROBSON SNOW MD Dictated By: Robson Snow MD 11/13/212342 Signed By: Robson Snow MD 11/13/212343 TD/TT: 11/13/212342Tech: [id number] cc: CYNTHIA; ASHLEY* Agata Reza MD; Reyna Rodrigues MD Report Dictated Date/Time Dictated By Status Radiology Report November 14, 2021 12:24am Robson Snow MD completed [id number] [place] [address] Patient Name: Alysa Luevano Medical Record#: [id number] 1 Address: [address] [place] [address] City/State/Zip: [place] [address]: Rhonda Rodrigues MD Insurance: [facility] (Medicaid) /Age/Sex: 1960/61/F Self Pay Admit/Reg Date: 11/13/[address]: Elroy Fritz Location: ED.AH/ PCP: Agata Reza MD Date of Service: 11/13/21 Order (s): CT angio head stroke CPT Code: 72057 Report Number: [id number] Reason for Exam: R sided numbness, TIA ADDENDUM The findings were verbally communicated via telephone conference with Reyna Rodrigues at 12:26 AM EDT on 11/14/2021. The findings were acknowledged and understood. This document has been electronically signed by [facility] Radiologist ROBSON SNOW MD Addendum Dictated By: Robson Snow MD Addendum Signed By: Robson Snow MD 11/14/2125 DD/ /30/25 TD/TT: 11/14/2108/30/25 PROCEDURE [...] has been electronically signed by ad Radiologist ROBSON SNOW MD Dictated By: Robson Snow MD 11/14/21 0024 Signed By: Robson Snow MD 11/14/21 0024 TD/TT: 11/14/21 0024Tech: [id number] cc: CYNTHIA; ASHLEY* Agata Reza MD; Reyna Rodrigues MD Report Dictated Date/Time Dictated By Status Echocardiogram November 14, 2021 8:01am Jeniffer Guardado MD completed [address] [address] Patient Name: Alysa Luevano Medical Record#: [id number] 1 Address: [address] [place] [address] City/State/Zip: [place] [address]: Chad Naqvi MD Insurance: [facility] (Medicaid) /Age/Sex: 1960/61/F Self Pay Admit/Reg Date: 11/14/[address]: Demarcus Grigsby MD Location: [address] PCP: Agata Reza MD Date of Service: 11/14/21 Order (s): Echo TTE comp w/dop w contrast CPT Code: C8929 Report Number: [id number] Reason for Exam: tia Transthoracic Echocardiography Report (TTE) Demographics Patient Name Bassem Watt Gender Female MR Number [id number] Date of 1960 Age 61 year(s) Room Number QK4734 Height 66 inches Date of study 11/14/2021 Weight 280.01 pounds Referring BSA 2.31 m^2 Interpreting MD Jeniffer Guardado MD BMI 45.19 kg/m^2 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 Mild mitral regurgitation. No aortic stenosis. No aortic regurgitation. The aortic valve is not well visualized. Soor-[id number] tricuspid regurgitation. Pulmonary artery systolic pressure is [...] valve is not well visualized. TRICUSPID VALVE: [id number] tricuspid regurgitation. Pulmonary artery systolic pressure is [...] 11/14/21800 Signed By: Jeniffer Guardado MD 11/14/21 164 TD/TT: 11/14/21 08Tech: [email or web address] cc: TESSIE; KRISTIN; ASHLEY* Demarcus Grigsby MD; Agata Reza MD; Jeniffer Guardado MD Vital Signs Vital Reading Result Reference Range Collection Date/Time Height 167.64 cm November 14, 2021 6:32am Weight 127.00 kg November 13, 2021 9:42pm Body Temperature 97.5 [degF] 97.6-99.6 November 142021 10:46am Heart Rate 75 /min 60-90 November 14, 2021 11:25am Respiratory rate 22 /min 12-24 November 142021 10:46am Oxygen saturation by Pulse oximetry 95 % 95-100 November 14, 2021 12:52pm BP Systolic 186 mm[Hg] 90-140 November 14, 2021 10:46am BP Diastolic 80 mm[Hg] 60-90 November 14, 2021 10:46am BMI (Body Mass Index) 54.7 kg/m2 2021 9:42pm Advance Directives Advance Directive Response Recorded Date/ Time Pt has Medical Orders for Li fe Sustaining Tx Form (MOLST)? No November 14, 2021 10:59am Advance Directives No November 10:59am Health Care Proxy No November 14, 2021 10:59am Insurance Providers Guarantor Alysa Luevano Address [address] [facility] [address] [facility] [address] Contact Info. Home Phone: Payer Policy Id Coverage Id Subscriber's Name Subscriber Id Effective Date Expiration Date [facility] (Medicaid) [id number] Alysa Luevano [id number] Encounters Encounter Location(s) Arrival/Admit Date Discharge/Depart Date Provider(s) Admitted Inpatient [facility] November 14, 2021 3:09am Taina Naqvi MD Recent Diagnosis Onset Date Cerebrovascular disease Numbness TIA (transient ischemic attack) Weakness HTN (hypertension) Obesity Functional Status Observation Response Date Recorded Assistive Devices Cane November 14, 2021 10:59am Ambulation Tolerance Fair November 142021 12:50pm Bathing Type Bath in a Bag with Setup [facility] [place] [place] 2021 12:50pm Date of Last Bowel Movement 11/14/21 [facility]2021 12:52pm Mental Status Observation Response Date Recorded Arousable To Name November 14 12:52pm Normal for Patient November 12:52pm Patient Behavior Cooperative November 14, 2021 12:52pm Anxious November 14 12:52pm Comprehension Ability Understands Concepts [facility]2021 12:52pm Level of Consciousness Awake November 14, 2021 12:52pm Alert November 14 12:52pm Appropriate November 14 12:52pm Follows Commands November 14, 2021 12:52pm Assessments Diagnosis Onset Date Resolution Status Cerebrovascular disease acut e Numbness acute TIA (transient ischemic attack) acute Weakness acute HTN (hypertension) chronic Obesity chronic Plan of Treatment Future Tests Future scheduled test information is unavailable Pending Tests Test Name Date ordered Urine Culture November 14, 2021 3:52am VTE Risk Assessment Medical November 3:09am Future Visits Future appointment information is unavailable Referrals to Other Providers Referral information is unavailable Future Procedures Procedure Name Scheduled Date Hospital Level of Care November 14 3:09am Occupational Therapy Consult November 142021 9:57am Physical Therapy Consult November 14, 2021 3:09am Activity November 14, 2021 3:10am Code Status November 14, 2021 3:09am ED Transfer of Care to Adm Physician Iliana perea 2021 12:33am Elevate Head of Bed November 13, 2021 10:32pm Saline Lock Insert/Manage November 13, 2021 9:47pm Neurology Consult November 14, 2021 3:09am Oxygen Initiate/Maintain November 13, 2021 10:32pm Oxygen Initiate/Maintain November 13, 2021 9:47pm Patient Preference for Pain Management S [email or web address] 2021 3:09am Provider Order to Nurse November [...]
--- OUTSIDE RECORDS SUMMARY | 2022-08-06 05:06 | XMS_ITS | Continuity of Care Document ---
Author Name Unknown Address [address] [place] [address] Phone Organization [facility] Address [address] [place] [address] Phone Care Team Providers Care Legal Referee Name Role Phone MD Maria Del Carmen Rezaberly Primary Care Provider MD Srinivas Murry Emergency Provider [phone] MD Reilly [facility] Other Provider [phone] MD Pa Cooper Attending Provider [phone] Chief Complaint and Reason for Visit Chief Complaint Right facial numbnes s/weakness Reason for Visit CVA (cerebral vascul ar accident) Allergies, Adverse Reactions, Alerts Allergen Type Severity Reaction Last Updated Verified Status aspirin Allergy Unknown May 16 7:40pm Yes Active Sulfa (Sulfonamide Antibiotics) Allergy Unknown May 16, 2022 7:40pm Yes Active Social History Smoking Status Unknown if ever smoked Observation Status Observation Response Date of Response Living Situation Apartment November 15, 2021 12:03pm Services Prior to Admission Home Health Aide Sep [facility] 2021 12:03pm Living Situation Net Development Manager Care Facility [facility] 2021 3:42pm Living Situation Apartment November 29, 2021 12:14pm Living Situation Apartment December 01, 2021 1:58pm Living Situation Private Home April 03, 2 023 11:50am Services Prior to Admission Jonathon mireles 2022 3:34pm Is Anyone Dependent on your Care? No January 29, 2022 2:14pm Living Situation Apartment January 29, 2022 2:14pm Living Situation Apartment May 17, 2022 11:10am Services Prior to Admission Home Health Aide Stephanie 2022 9:45am Lives With Significant other May 17 9:45am Additional Data Assigned Sex Female Problems Active Problems Medical Problem Onset Date Status Numbness Active Bradycardia Active Cerebrovascular disease Active TIA (transient ischemic attack) Active Vertigo Active Weakness Active HTN (hypertension) Active Obesity Active CVA (cerebral vascular accident) Active Inactive/Resolved Problems Medical Problem Onset Date Status Insomnia Resolved Headache Resolved Superficial thrombophlebitis Res olved Chest pain Resolved Medications Medication Status Dose Units Route Directions Qty Days St art Date End Date Instructions Cetirizine Discontin ued 10 MG PO DAILY [facility] 2021 11:00pm Marua y 2022 4:22pm Metoprolol Succinate Discontin ued 200 MG PO DAILY [facility] 2021 11:00pm Maruar y 2022 4:22pm Chlorthalidon e Discontin ued 25 MG PO DAILY [facility] 2021 11:00pm Sept inessa 2021 11:44p m Chlorthalidon e Discontin ued 75 MG PO DAILY [facility] 2021 11:00pm Marua y 2022 4:20pm Acetaminophen Active 500 MG PO TWICE A DAY [facility] 2021 11:00pm Pantoprazole Discontin ued 40 MG PO DAILY [facility] 2021 11:00pm Maruar y 2022 4:24pm Omeprazole Active 20 MG PO DAILY [facility] 2021 11:00pm Verapamil Discontin ued 240 MG PO DAILY [facility] 2021 11:00pm y 2022 10:28a m Fluticasone Propionate (Flovent Hfa) 220 mcg/actuation HFA aerosol inhaler Active 1 INH INH DAILY [facility] 2021 11:00pm Albuterol Sulfate (Proair Hfa) 90 mcg/actuation HFA aerosol inhaler Active 1 INH INH EVERY 6 HOURS [facility] 2021 11:00pm Lisinopril Active 40 MG PO DAILY [facility] 2021 11:00pm Topiramate Discontin ued 100 MG PO DAILY [facility] 2021 11:00pm Marua y 2022 4:24pm Rosuvastatin Discontin ued 20 MG PO DAILY [facility] 2021 11:00pm Marua y 2022 4:53pm Bupropion Hcl Discontin ued 300 MG PO DAILY [facility] 2021 11:00pm Marua y 2022 4:23pm Cholecalcifer ol (Vitamin D3) (Vitamin D3) 125 mcg (5,000 unit) tablet Active 125 MCG PO DAILY [facility] 2021 11:00pm Acetaminophen Discontin ued 650 MG PO THREE TIMES A DAY [facility] 2021 11:00pm Marua y 2022 4:22pm Clopidogrel Active 75 MG PO DAILY 30 er 2021 11:00pm Atorvastatin Active 40 MG PO DAILY [email or web address] 12:00am Chlorthalidon e Discontin ued 25 MG PO DAILY April 02, 2022 12:00am [email or web address] 10:29a m Rosuvastatin Active 20 MG PO DAILY [email or web address] 12:00am Meclizine Active 12.5 MG PO THREE TIME S A DAY April 04, 2022 12:00am Amoxicillin-P ot Clavulanate Discontin ued 1 TAB PO EVERY 12 HOURS April 04, 2022 12:00am May 16, 2022 8:16pm Chlorthalidon e Discontin ued 50 MG PO DAILY 0 April 04, 2022 10:29am May 16, 2022 8:20pm Loratadine Active 10 MG PO DAILY May 16, 2022 12:00am Chlorthalidon e Active 25 MG PO DAILY May 16, 2022 8:19pm Dewy Rose-3 Fatty Acids-Fish Oil (Fish Oil) 340-1,000 mg capsule Active 1 CAP PO DAILY May 16, 2022 12:00am Procedures Procedure Date Performed Status CT angio head stroke May 16, 2022 6:33pm comp leted CT angio neck stroke May 16, 2022 6:33pm comp leted CT head stroke wo contrast May 16, 2022 6:33p m completed EKG ED Electrocardiogram May 16, 2022 6:32pm completed XR chest 1V portable May 16, 2022 7:40pm comp leted MR head/brain wo contrast May 17, 2022 8:17pm completed Urine Culture active Relevant Diagnostic Tests and/or Laboratory Data Laboratory Results Test Date/Time Result Interpretation Reference Range Result Comment Performing Site White Blood Count May 17, 2022 5:51am 10.5 X10 3/uL 4.5-11.0 [facility] [id number] [address] [place] [address] 47278 Red Blood Count May 17, 2022 5:51am 4.16 X10 6/uL 3.70-5.00 [facility] [id number] [address] [place] [address] 12977 Hemoglobin May 17, 2022 5:51am 12.3 g/dl 11.0-16.0 [facility] [id number] [address] [place] [address] 76533 Hematocrit May 17, 2022 5:51am 38.5 % 33.5-45.0 [facility] [id number] [address] [place] [address] 51192 Mean Corpuscular Volume May 17, 2022 5:51am 92.5 fl 80.0-100.0 [facility] [id number] [address] [place] [address] 93967 Mean Corpuscular Hemoglobin May 17, 2022 5:51am 29.6 pg 27.0-34.0 [facility] [id number] [address] [place] [address] 27270 Mean Corpuscular Hemoglobin Concent May 17, 2022 5:51am 31.9 g/dl 31.0-36.0 [facility] [id number] [address] [place] [address] 50689 Red Cell Distribution Width May 17, 2022 5:51am 12.1 % 11.5-15.0 [facility] [id number] [address] [place] [address] 39297 Platelet Count May 17, 2022 5:51am 333 X10 3/uL 150-400 [facility] [id number] [address] [place] [address] 97433 Immature Granulocyte % (Auto) May 17, 2022 5:51am 0.8 % [facility] [id number] [address] [place] [address] 92639 Neutrophils (%) (Auto) May 17, 2022 5:51am 63.5 % [facility] [id number] [address] [place] [address] 35629 Lymphocytes (%) (Auto) May 17, 2022 5:51am 27.3 % [facility] [id number] [address] [place] [address] 20305 Monocytes (%) (Auto) May 17, 2022 5:51am 6.9 % [facility] [id number] [address] [place] [address] 68625 Eosinophils (%) (Auto) May 17, 2022 5:51am 1.0 % [facility] [id number] [address] [place] [address] 75335 Basophils (%) (Auto) May 17, 2022 5:51am 0.5 % [facility] [id number] [address] [place] [address] 79177 Immature Granulocyte # (Auto) May 17, 2022 5:51am 0.08 X10 3/uL 0.00-0.09 [facility] [id number] [address] [place] [address] 65625 Neutrophils # (Auto) May 17, 2022 5:51am 6.7 X10 3/uL 1.5-7.8 [facility] [id number] [address] [place] [address] 46037 Lymphocytes # (Auto) May 17, 2022 5:51am 2.9 X10 3/uL 1.0-4.8 [facility] [id number] [address] [place] [address] 94358 Monocytes # (Auto) May 17, 2022 5:51am 0.7 X10 3/uL 0.0-0.8 [facility] [id number] [address] [place] [address] 51478 Eosinophils # (Auto) May 17, 2022 5:51am 0.1 X10 3/uL 0.0-0.5 [facility] [id number] 5 [facility] [address] Basophils # (Auto) May 17, 2022 5:51am 0.1 X10 3/uL 0.0-0.2 [facility] [id number] [address] [place] [address] 52797 Hemoglobin A1c May 17, 2022 5:51am 5.5 4.3-5.9 [facility] [id number] [address] [place], [place] [address] Estimated Average Glucose (eAG) May 17, 2022 5:51am 111 mg/dl [facility] [id number] [address] [place], [place] [address] Nucleated Red Blood Cells % May 17, 2022 5:51am 0.0 /100 WBC 0.0-0.0 [facility] [id number] [address] [place], [place] [address] Prothrombin Time May 16, 2022 6:57pm 10.6 Seconds 9.3-12.1 [facility] [id number] [address] [place], [place] [address] Prothromb Time International Ratio May 16, 2022 6:57pm 1.0 0.9-1.2 Reference Interval is for non-anticoagul ated patients.Sugcamilo sted INR Therapeutic Range for Vitamin K antogonist therapy:LEVELS OF THERAPY INDICATIONS TARGET INR RANGEStandard Dose Venous Thrombosis, 2.0 - 3.0 Atrial Fibrillation, Pulmonary Embolism. High Dose Valvular Heart Disease, 2.5 - 3.5 Mechanical Heart, Intracardiac Thrombosis. [facility] [id number] [address] [place] [address] 93860 Urine Color May 16, 2022 10:53pm Yellow Yellow [facility] [id number] [address] [place] [address] 08663 Urine Clarity May 16, 2022 10:53pm Clear Clear [facility] [id number] [address] [place] [address] 31630 Urine pH May 16, 2022 10:53pm 7.0 5.0-8.0 [facility] [id number] [address] [place] [address] 06042 Urine Specific [place] May 16, 2022 10:53pm 1.015 1.005-1.03 0 [facility] [id number] [address] [place] [address] 33720 Urine Blood May 16, 2022 10:53pm Trace mg/dL Negative [facility] [id number] [address] [place] [address] 09460 Urine Protein May 16, 2022 10:53pm Negative mg/dL Negative [facility] [id number] [address] [place] [address] 16460 Urine Glucose (UA) May 16, 2022 10:53pm Negative mg/dl Negative [facility] [id number] [address] [place] [address] 04379 Urine Ketones May 16, 2022 10:53pm Negative mg/dL Negative [facility] [id number] [address] [place] [address] 14629 Urine Nitrate May 16, 2022 10:53pm Negative Negative [facility] [id number] [address] [place] [address] 39668 Urine Bilirubin May 16, 2022 10:53pm Negative mg/dL Negative [facility] [id number] [address] [place] [address] 05723 Urine Urobilinogen May 16, 2022 10:53pm 0.2 E.U./dL Normal [facility] [id number] [address] [place] [address] 93038 Urine Leukocyte Esterase May 16, 2022 10:53pm Moderate mg/dL Negative [facility] [id number] [address] [place] [address] 12611 Urine RBC (Auto) May 16, 2022 10:53pm None seen /HPF 0-2 [facility] [id number] [address] [place] [address] 72204 Urine WBC (Auto) May 16, 2022 10:53pm 0-5 /HPF 0-5 [facility] [id number] [address] [place] [address] 72278 Urine Epithelial Cells (Auto) May 16, 2022 10:53pm 0-5 /HPF 0-5 [facility] [id number] [address] [address] Urine Casts (Auto) May 16, 2022 10:53pm None seen /LPF None Seen [facility] [id number] [address] [place] [address] 66707 Urine Bacteria (Auto) May 16, 2022 10:53pm Rare /HPF None Seen [facility] [id number] [address] [place] [address] Sodium Level May 17, 2022 5:51am 133 mmol/L 137-146 [facility] [id number] [address] [place] [address] Potassium Level May 17, 2022 5:51am 3.8 mmol/L 3.5-5.3 Specimen hemolyzed, results affected [facility] [id number] [address] [place] [address] Chloride Level May 17, 2022 5:51am 96 mmol/L 98-107 [facility] [id number] [address] [place] [address] Carbon Dioxide Level May 17, 2022 5:51am 24 mmol/L 23-32 [facility] [id number] [address] [place] [address] Anion Gap May 17, 2022 5:51am 13 mmol/L 5-15 [facility] [id number] [address] [place] [address] Blood Urea Nitrogen May 17, 2022 5:51am 24 mg/dl 5-25 [facility] [id number] [address] [place] [address] Creatinine May 17, 2022 5:51am 0.7 mg/dL 0.5-1.1 [facility] [id number] [address] [place] [address] Estimated Creatinine Clearance May 17, 2022 5:51am 106.9 ml/min This value is calculated by Cockcroft Gault Equation using ideal body weight. This result is dependent on an accurate patient height and weight which is obtained from patients medical record. [employer], D.W. and M.H. Gault. Prediction of creatinine clearance from serum creatinine. Nephron. 1975. 16(1):31-41. [facility] [id number] [address] [place], [place] [address] Estimat Glomerular Filtration Rate May 17, 2022 5:51am 97 >90 Reported eGFR is based on the CKD-EPI 2020 equation that does not use a race coefficient. Additional information can be found at:04-20-8261_ [email or web address] ([email or web address]) [facility] [id number] [address] [place] [address] BUN/Creatinine Ratio May 17, 2022 5:51am 34.3 10.0-20.0 [facility] [id number] [address] [place] [address] Glucose Level May 17, 2022 5:51am 83 mg/dL 70-100 [facility] [id number] [address] [place] [address] Calcium Level May 17, 2022 5:51am 9.7 mg/dl 8.6-10.3 [facility] [id number] [address] [place] [address] Total Bilirubin May 17, 2022 5:51am 0.3 mg/dl <1.1 [facility] [id number] [address] [place] [address] Aspartate Amino Transf (AST/SGOT) May 17, 2022 5:51am 17 U/L 15-41 Specimen hemolyzed, results affected, evaluate with caution. [facility] [id number] [address] [place], [place] [address] Alanine Aminotransferase (ALT/SGPT) May 17, 2022 5:51am 12 U/L 14-54 [facility] [id number] [address] [place], [place] [address] Troponin T High Sensitivity May 17, 2022 12:31am 8 ng/L <8 Normal range: Females <9 ng/L Males <14 ng/L Values greater than or equal to 52 ng/L indicates acute myocardial injury/infarct ion Values between '10 and 51 ng/L' (for females) or '15 and 51 ng/L' (for males) require clinical correlation and is not diagnostic of acute myocardial injury.Conside r repeat at 1 and 3 hours.A dynamic increase of ? greater than 5 ng/L? at 1 hour or 3 hours indicates of acute myocardial injury/infarct ion.For a patient with an estimated GFR of [...] onset, generally rules out acute myocardial injury/infarct ion.Refer to Chest Pain order sets for additional clinical decision support (using the HEART score for the ED or the JESUS score for the inpatient setting). [facility] [id number] [address] [place] [address] Total Protein May 17, 2022 5:51am 7.8 g/dL 6.4-8.3 [facility] [id number] [address] [place], [place] [address] Albumin May 17, 2022 5:51am 3.6 g/dl 4.0-5.0 [facility] [id number] [address] [place], [place] [address] Albumin/Globulin Ratio May 17, 2022 5:51am 0.9 1.0-2.6 [facility] [id number] [address] [place] [address] Alkaline Phosphatase May 17, 2022 5:51am 60 U/L 35-104 [facility] [id number] [address] [place] [address] Bedside Glucose May 16, 2022 10:39pm 118 mg/dl 70-100 NOTE: Any discrepancy between finger stick glucose result and patient's clinical presentation should be confirmed by the laboratory. [facility] [id number] [address] [place] [address] Diagnostic Imaging Reports Report Dictated Date/Time Dictated By Status Radiology Report May 16, 2022 6:52pm [place] [address] Patient Name: Alysa Luevano Medical Record#: [id number] 1 Address: [address] [place] [address] City/State/Zip: [place] [address]: Martin Murry MD Insurance: [facility] (Medicaid) /Age/Sex: 1960/61/F Self Pay Admit/Reg Date: 05/16/[address]: Juvenal Tyler Location: ED.AH/ PCP: Agata Reza MD Date of Service: 05/16/22 Order (s): CT head stroke wo contrast CPT Code: 64712 Report Number: [id number] Reason for Exam: right sided numbness/weakness ADDENDUM THIS REPORT CONTAINS FINDINGS THAT MAY BE CRITICAL TO PATIENT CARE. The findings were verbally communicated via telephone conference with Srinivas Murry at 6:55 PM EST on 05/16/2022. The findings were acknowledged and understood. This document has been electronically signed by [facility] Radiologist KADE GUAJARDO MD Addendum Dictated By: Kade Guajardo MD Addendum Signed By: Kade Guajardo MD 05/16/221855 DD/ /01/1855 TD/TT: 05/16/2211/01/1855 PROCEDURE INFORMATION: Exam: CT Head Without Contrast Exam date and time: 05/16/2022 6:41 PM Age: 61 years old Clinical indication: Stroke-like symptoms; Generalized numbness/paresthesia; Additional info: Right sided numbness/weakness TECHNIQUE: Imaging protocol: Computed tomography of the head without contrast. Radiation optimization: All CT scans at this facility use at least one of these dose optimization techniques: automated exposure control; mA and/or kV adjustment per patient size (includes targeted exams where dose is matched to clinical indication); or iterative reconstruction. Other technique: STROKE PROTOCOL was implemented. REPORTING DATA: Count of CT and Cardiac NM exams in prior 12 months: This patient has received 7 known CTs and 0 known cardiac nuclear medicine studies in the 12 months prior to the current study. COMPARISON: MR head/brain wo con 04/03/2022 11:25 AM FINDINGS: Brain: No acute intracranial hemorrhage. No mass effect or midline shift. Brain proper unremarkable for age. Partially empty sella usually of no clinical significance. Cerebral ventricles: no hydrocephalus Paranasal sinuses: No fluid levels. Mastoid air cells: Left mastoid effusion. No significant change. Bones/joints: calvarium unremarkable for age. Soft tissues: limited evaluation IMPRESSION: No acute intracranial findings. ASSESSMENT: ASPECTS ([place] Stroke Program Early CT Score) is 10. This document has been electronically signed by [facility] Radiologist KADE Bradley Dictated By: Kade Guajardo MD 05/16/221851 Signed By: Kade Guajardo MD 05/16/221851 TD/TT: 05/16/221851Tech: [id number] cc: GEORGINA RAMIREZ* Srinivas Murry MD; Agata Reza MD Report Dictated Date/Time Dictated By Status Radiology Report May 16, 2022 7:04pm Kade Guajardo MD completed [address] [address] Patient Name: Alysa Luevano Medical Record#: [id number] 1 Address: [address] [place] [address] City/State/Zip: [place] [address]: Martin Murry MD Insurance: [facility] (Medicaid) /Age/Sex: 1960/61/F Self Pay Admit/Reg Date: 05/16/[address]: Juvenal Tyler Location: ED.AH/ PCP: Agata Reza MD Date of Service: 05/16/22 Order (s): CT angio neck stroke CPT Code: 75204 Report Number: [id number] Reason for Exam: right sided numbness/weakness PROCEDURE INFORMATION: Exam: CTA Neck With Contrast Exam date and time: 05/16/2022 6:44 PM Age: 61 years old Clinical indication: Stroke-like symptoms; Other: Right sided numbness numbness/paresthesia; Additional info: Right sided numbness/weakness TECHNIQUE: Imaging protocol: Computed tomographic angiography of [...] volume: 80 ml; Contrast route: INTRAVENOUS (IV); REPORTING DATA: Count of CT and Cardiac NM exams in prior 12 months: This patient has received 8 known CTs and 0 known cardiac nuclear medicine studies in the 12 months prior to the current study. COMPARISON: CT angio neck stroke 11/13/2021 11:07 PM FINDINGS: Limitations: Body habitus degrades image quality and signal to noise ratio compromising the study. Right common carotid artery: No occlusion. Right internal carotid artery: No hemodynamically significant stenosis according to NASCET criteria. No occlusion. Right external carotid artery: No occlusion . Left common carotid artery: No occlusion. Left internal carotid artery: No hemodynamically significant stenosis according to NASCET criteria. No occlusion. Focal calcified plaque at the bulb. Left external carotid artery: No occlusion . Right vertebral artery: No dissection or occlusion. Left vertebral artery: No dissection or occlusion. Thyroid: Suggestion of slight thyromegaly. Soft tissues: n/a Bones/joints: No cervical spine listhesis. No acute compression deformity. IMPRESSION: CT angiogram neck proper unremarkable for age. REFERENCES: NASCET CRITERIA. The degree of stenosis in the cervical segment of the internal carotid artery is based on NASCET criteria. Normal is no stenosis. Mild is less than 50% stenosis. Moderate is 50-69% stenosis. Severe is 70% to 99% stenosis. Total occlusion is no detectable patent lumen. This document has been electronically signed by [facility] Radiologist KADE GUAJARDO MD Dictated By: Kade Guajardo MD 05/16/221903 Signed By: Kade Guajardo MD 05/16/221903 TD/TT: 05/16/221903Tech: [id number] cc: ESTHER; ASHLEY* Srinivas Murry MD; Agata Reza MD Report Dictated Date/Time Dictated By Status Radiology Report May 16, 2022 7:10pm Kade Guajardo MD completed [address] [address] Patient Name: Alysa Luevano Medical Record#: [id number] 1 Address: [address] [place] [address] City/State/Zip: [place] [address]: Martin Murry MD Insurance: [facility] (Medicaid) /Age/Sex: 1960/61/F Self Pay Admit/Reg Date: 05/16/[address]: Juvenal Tyler Location: ED.AH/ PCP: Agata Reza MD Date of Service: 05/16/22 Order (s): CT angio head stroke CPT Code: 92810 Report Number: [id number] Reason for Exam: right sided numbness/weakness ADDENDUM THIS REPORT CONTAINS FINDINGS THAT MAY BE CRITICAL TO PATIENT CARE. The findings were verbally communicated via telephone conference with Srinivas Murry at 7:14 PM EST on 05/16/2022. The findings were acknowledged and understood. This document has been electronically signed by [facility] Radiologist KADE GUAJARDO MD Addendum Dictated By: Kade Guajardo MD Addendum Signed By: Kade Guajardo MD 05/16/221914 DD/ /31/1914 TD/TT: 05/16/2210/31/1914 PROCEDURE INFORMATION: Exam: CTA Head With Contrast, Arteriography Exam date and time: 05/16/2022 6:44 PM Age: 61 years old Clinical indication: Stroke-like symptoms; Other: RT side numbness/paresthesia; Additional info: Right sided numbness/weakness TECHNIQUE: Imaging protocol: Computed tomographic angiography of [...] volume: 80 ml; Contrast route: INTRAVENOUS (IV); REPORTING DATA: Count of CT and Cardiac NM exams in prior 12 months: This patient has received 8 known CTs and 0 known cardiac nuclear medicine studies in the 12 months prior to the current study. COMPARISON: 1. CT brain noncontrast 05/16/2022. 2. CT angio head stroke 11/13/2021 11:07 PM FINDINGS: ANTERIOR CIRCULATION: Right internal carotid artery: Right internal carotid artery patent. Cavernous segment severe stenosis hemodynamically significant 74%. Axial series 4 image 179 coronal series 605 image 55. Right middle cerebral artery: No occlusion. Right anterior cerebral artery: No occlusion. Left internal carotid artery: Left internal carotid artery patent. Stenosis junction of the post cavernous segment anterior genu does not appear hemodynamically significant. Left internal carotid artery supraclinoid 4.7 mm ectasia, axial series 4, image 179, 180 may represent mild fusiform aneurysmal dilatation. Left middle cerebral artery: No occlusion. Left anterior cerebral artery: No occlusion. POSTERIOR CIRCULATION: Right vertebral artery: No occlusion. Left vertebral artery: No occlusion. Basilar artery: No occlusion. Right posterior cerebral artery: No occlusion. Left posterior cerebral artery: No occlusion. Brain: No mass effect or midline shift. Cerebral ventricles: No hydrocephalus. Bones/joints: Unremarkable for age. Soft tissues: Unremarkable. IMPRESSION: 1. No acute ymdxdf-mi-Fentar occlusion. 2. Bilateral internal carotid artery intracranial calcified stenoses severe on the right. 3. 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 This document has been electronically signed by [facility] Radiologist KADE GUAJARDO MD Dictated By: Kade Guajardo MD 05/16/221909 Signed By: Kade Guajardo MD 05/16/221910 TD/TT: 05/16/221909Tech: [id number] cc: GEORGINA RAMIREZ* Srinivas Murry MD; Agata Reza MD Report Dictated Date/Time Dictated By Status Radiology Report May 16, 2022 8:06pm Bella George MD completed [facility] [address] [place] [address] Patient Name: Alysa Luevano Medical Record#: [id number] 1 Address: [address] [place] [address] City/State/Zip: [place] [address]: Martin Murry MD Insurance: [facility] (Medicaid) /Age/Sex: 1960/61/F Self Pay Admit/Reg Date: 05/16/[address]: Juvenal Tyler Location: ED./ PCP: Agata Reza MD Date of Service: 05/16/22 Order (s): XR chest 1V portable CPT Code: 85832 Report Number: [id number] Reason for Exam: stroke CXR SINGLE AP Indication: Stroke Comparison: November 29, 2021. The heart is not enlarged. There is no focal infiltrate. The costophrenic sulci are sharp. The trachea is midline. IMPRESSION: No evidence of acute disease. Dictated By: Bella George MD 05/16/222005 Signed By: Bella George MD 05/16/222009 TD/TT: 05/16/222005Tech: [facility] cc: GEORGINA RAMIREZ* Srinivas Murry MD; Agata Reza MD Report Dictated Date/Time Dictated By Status Radiology Report May 17, 2022 11:52am [place] [address] Patient Name: Alysa Luevano Medical Record#: [id number] 1 Address: [address] [place] [address] City/State/Zip: [place] [address]: Pa Cooper MD Insurance: [facility] (Medicaid) /Age/Sex: 1960/61/F Self Pay Admit/Reg Date: 05/16/[address]: Cb castellon MD [id number] PCP: Agata Reza MD Date of Service: 05/17/22 Order (s): MR head/brain wo contrast CPT Code: 09061 Report Number: [id number] Reason for Exam: stroke EXAM: MRI HEAD WITHOUT CONTRAST HISTORY: Right facial numbness, headache, weakness and dizziness. Clinical concern for acute stroke. COMPARISON: Code stroke CT head and CTA head and neck dated 05/16/2022. TECHNIQUE: Sagittal T1, and axial T1, T2, FLAIR, GRE, and diffusion with ADC map images of the head were obtained without contrast. FINDINGS: Images are degraded by motion artifact. Within this confine: The ventricles, sulci and cisterns appear age-appropriate. There is no mass- effect, midline shift, or space-occupying lesion. There is no evidence of acute or chronic intracranial hemorrhage or extra-axial fluid collection. There is no decreased diffusion to indicate an acute infarct. There are scattered foci of T2/FLAIR hyperintensity in the subcortical and periventricular white matter, a non-specific finding but likely reflecting the sequela of chronic microangiopathy. There are normal flow voids of the major intracranial vessels. The visualized paranasal sinuses appear clear. There is fluid opacification of the left mastoid air cells and there is small volume nonspecific fluid in the right mastoid air cells. Orbits and soft tissues appear unremarkable. IMPRESSION: 1. No evidence of infarction, hemorrhage or mass effect. 2. Mild chronic microangiopathy. 3. Nonspecific fluid opacification of the left mastoid air cells. Dictated By: Keivn Islas III, MD 05/17/22 115 Signed By: Kevin Islas III, MD 05/17/22 1200 TD/TT: 05/17/22 115Tech: [id number] cc: NIRALI CERVANTES; ASHLEY* Pa Cooper MD; Agata Reza MD; Cb Cassidy MD Vital Signs Vital Reading Result Reference Range Collection Date/Time Height 162.56 cm May 16, 2022 10:34pm Weight 123.80 kg May 16, 2022 10:34pm Body Temperature 97.6 [degF] 97.6-99.6 May 17, 2022 9:04am Heart Rate 91 /min 60-90 May 17, 2022 9:04am Respiratory rate 18 /min 12-24 May 17, 2022 9:04am Oxygen saturation by Pulse oximetry 100 % 95-100 May 17, 2022 9:04 am BP Systolic 122 mm[Hg] 90-140 May 17, 2022 9:04am BP Diastolic 59 mm[Hg] 60-90 May 17, 2022 9:04am BMI (Body Mass Index) 46.8 kg/m2 May 16, 2022 10:34pm Advance Directives Advance Directive Response Recorded Date/ Time Advance Directives No November 9:59am Health Care Proxy No November 14, 2021 9:59am Advance Directives No November 3:18pm Health Care Proxy No November 3:18pm Advance Directives No November 11:53am Health Care Proxy No November 11:53am Advance Directives No November 1:41pm Health Care Proxy No November 1:41pm Advance Directives No April 03, 2022 3:34pm Health Care Proxy No April 03, 2022 3:34pm Advance Directives No January 12:23pm Health Care Proxy No January 29, 2022 12:23pm Advance Directives No May 16 10:34pm Health Care Proxy No May 16 10:34pm Pt has Medical Orders for Li fe Sustaining Tx Form (MOLST)? No May 16, 2022 10:34pm Insurance Providers Guarantor Alysa Luevano Address [address] [address] Contact Info. Home Phone: Payer Policy Id Coverage Id Subscriber's Name Subscriber Id Effective Date Expiration Date [facility] (Medicaid) [id number] Alysa Luevano [id number] Encounters Encounter Location(s) Arrival/Admit Date Discharge/Depart Date Provider(s) Admitted Inpatient [facility] May 16, 2022 8:17pm Pa Cooper MD Recent Diagnosis Onset Date CVA (cerebral vascular accident) Functional Status Observation Response Date Recorded Assistive Devices Walker May 16 10:34pm Date of Last Bowel Movement 05/16/22 Doe 2022 10:34pm Mental Status Observation Response Date Recorded Arousable To Normal for Patient May 17 9:45am Patient Behavior Appropriate May 16, 2022 10:34pm Cooperative May 16, 2022 10:34pm Comprehension Ability Impairment May 17, 2022 6:02am Level of Consciousness Awake May 6:02am Alert May 17, 2022 6:02am Appropriate May 17, 2022 6:02am Follows Commands May 17, 2022 6:02am Assessments Diagnosis Onset Date Resolution Status CVA (cerebral vascular accident) acute Plan of Treatment Future Tests Future scheduled test information is unavailable Pending Tests Test Name Ordered Date Scheduled Date Urine Culture May 16, 2022 10:53pm Triglycerides Level May 17, 2022 5:51am Cholesterol Level May 17, 2022 5:51am LDL Cholesterol, Calculated May 17, 2022 5:51 am HDL Cholesterol May 17, 2022 5:51am Cholesterol/HDL Ratio May 17, 2022 5:51am VTE Risk Assessment Medical November 14, 2021 2:09am November 14, 2021 2:09am VTE Risk Assessment Medical May 16, 2022 8:17 pm May 16, 2022 8:17pm Future Visits Future appointment information is unavailable Referrals to Other Providers Reason for Referral Referral Start Date Provider Provider Contact Information Provider Address 6 months Rachna Norris MD Work Phone: [address] [facility] [address] Agata Reza MD Work Phone: [address] [address] Agata Reza MD Work Phone: [address] [address] Agata Reza MD Work Phone: [address] [address] Agata Reza MD Work Phone: [address] [phone] Tiago Allen will call patient with appointment Agata Reza MD Work Phone: [address] [address] Agata Reza MD Work Phone: [address] [phone] Future Procedures Procedure Name Ordered Date Scheduled Date Hospital Level of Care November 15, 2021 9:43a m November 15, 2021 9:43am Occupational Therapy Consult November 14, 2021 8:57am November 14, 2021 8:57am Physical Therapy Consult November 14, 2021 2:0 9am November 14, 2021 2:09am Activity November 14, 2021 2:09am Septmario kirkpatrick 2021 2:10am Discharge November 16, 2021 2:50pm Heidi kirkpatrick 2021 2:50pm Discharge November 17, 2021 9:43am Septe casimiro 2021 9:43am ED Transfer of Care to [...] 2021 3 :46pm November 21, 2021 3:46pm Hospital Level of Care April 03, 2022 3:10pm April 03, 2022 3:10pm Occupational Therapy Consult April 02, 2022 8:20pm April 02, 2022 8:21pm Physical Therapy Consult April 02, 2022 8:20 pm April 02, 2022 8:21pm Activity April 02, 2022 3:30pm Januar ketan 2022 3:30pm Discharge April 04, 2022 10:30am Janua ry 2022 10:30am ED Transfer of Care to Adm Physician April 02, 2022 3:27pm April 02, 2022 3:27pm Peripheral IV Insert/Manage April 02, 2022 3 :30pm April 02, 2022 3:30pm Neurology Consult April 02, 2022 8:20pm Majorcara mireles 2022 8:21pm Patient Preference for Pain Management April 02, 2022 3:30pm April 02, 2022 3:30pm Sequential Compression Device April 02, 2022 3:30pm April 02, 2022 3:30pm Spiritual Care Consult April 02, 2022 11:16p m April 02, 2022 11:16pm Blood Bank Hold May 16, 2022 6:32pm May 6:32pm Hospital Level of Care May 16, 2022 8:17pm [facility] 2022 8:17pm Occupational Therapy Consult May 16, 2022 8:1 7pm May 16, 2022 8:17pm Physical Therapy Consult May 16, 2022 8:17pm May 16, 2022 8:17pm Speech Therapy Consult May 16, 2022 8:17pm [facility] 2022 8:17pm Activity May 16, 2022 8:17pm May 8:18pm Aspiration Precautions May 16, 2022 6:32pm [facility] 2022 6:32pm Code Status May 16, 2022 8:17pm May 8:17pm ED Transfer of Care to Adm Physician May 16, 2022 7:48pm May 16, 2022 7:48pm Elevate Head of Bed May 16, 2022 6:32pm May 16, 2022 6:32pm Elevate Head of Bed May 16, 2022 8:17pm May 16, 2022 8:17pm Neurology Consult May 16, 2022 8:17pm May 162022 8:17pm Patient Preference for Pain Management May 16, 2022 8:17pm May 16, 2022 8:17pm Continuous Pulse Oximetry May 16, 2022 6:32pm May 16, 2022 6:32pm Sequential Compression Device May 16, 2022 8: 17pm May 16, 2022 8:17pm Future Medications Future medication information is unavailable Patient Instructions Self-Care for Headaches ED Thrombophlebitis, Superfi cial Amoxicillin/Clavulanate Oral Tablet 875 mg/125 mg Meclizine Oral Tablet 12.5 mg Vertigo Inner Ear Problems Vertigo Medicine Tx Vertigo Staying Safe Goals Acute Goals Absence of falls Including: - Early & often mobilization when appropriate - Passive/active range of motion as appropriate - toileting schedule implementation - implementation of fall risk interventions Skin integrity intact - No evidence of impaired skin integrity - Patient/caregivers participating in preventative measures Management Strategy-OT Management Strategy-PT Management Strategy-CHEMICAL LABORATORY CHIEF
--- OUTSIDE RECORDS SUMMARY | 2022-08-06 05:06 | XMS_ITS | Continuity of Care Document ---
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 Name Role Phone MD Agata Reza Primary Care Provider MD Srinivas Murry Emergency Provider Chief Complaint [...] Observation Response Date of Response [facility] November 15, 2021 12:03pm Services Prior to Admission Home Health Aide [facility] 2021 12:03pm Living Situation Group Home Care Facility [facility] 2021 3:42pm Living Situation Apartment [...] Instructions Cetirizine Active 10 MG PO DAILY [facility] 2021 11:00pm Metoprolol Succinate Active 200 MG PO DAILY [facility] 2021 11:00pm Chlorthalidon e Discontin ued 25 MG PO DAILY [facility] 2021 11:00pm [facility] 2021 11:44p m Chlorthalidon e Active 75 MG PO DAILY [facility] 2021 11:00pm Acetaminophen Active 500 MG PO DAILY [facility] 2021 11:00pm Pantoprazole Active 40 MG PO DAILY [facility] 2021 11:00pm Omeprazole Active 20 MG PO DAILY [facility] 2021 11:00pm Verapamil Active 240 MG PO DAILY [facility] 2021 11:00pm Fluticasone Propionate (Flovent Hfa) 220 mcg/actuation HFA aerosol inhaler Active 1 INH INH TWICE A DAY [facility] 2021 11:00pm Albuterol Sulfate (Proair Hfa) 90 mcg/actuation HFA aerosol inhaler Active 1 INH INH EVERY 6 HOURS [facility] 2021 11:00pm Lisinopril Active 40 MG PO DAILY [facility] 2021 11:00pm Topiramate Active 100 MG PO DAILY [facility] 2021 11:00pm Rosuvastatin Active 20 MG PO DAILY [facility] 2021 11:00pm Bupropion Hcl Active 300 MG PO DAILY [facility] 2021 11:00pm Cholecalcifer ol (Vitamin D3) (Vitamin D3) 125 mcg (5,000 unit) tablet Active 125 MCG PO DAILY [facility] 2021 11:00pm Acetaminophen Active 650 MG PO THREE TIMES A DAY [facility] 2021 11:00pm Clopidogrel Active 75 MG PO [facility] 11:[facility] Procedures Procedure Date Performed Status US venous duplex LE RT January 29, 2022 2:17p m completed Relevant Diagnostic Tests and/or Laboratory Data Diagnostic Imaging Reports Report Dictated Date/Time Dictated By Status Radiology Report January 29, 2022 3:45pm Edilberto Sneed MD completed [address] [address] Patient Name: Luevano,Alyas Medical Record#: [id number] 1 Address: [address] [place] [address] City/State/Zip: [place] [address]: Mario E/R Physician Insurance: [facility] (Medicaid) /Age/Sex: 1960/61/F Self Pay Admit/Reg Date: 01/29/[address]: Evette Mena NP Location: ED.AH/ PCP: Agata Reza MD Date of Service: 01/29/22 Order (s): US venous duplex LE RT CPT Code: 62839 Report Number: [id number] Reason for Exam: calf pain/tender PROCEDURE: US [...] 2:14pm BMI (Body Mass Index) 51.6 kg/m2 [facility] 2021 2:14pm Advance Directives Advance Directive Response [...] 12:23pm Insurance Providers Guarantor Alysa Luevano Address [address] [place] [address] Contact Info. Home Phone: Payer Policy Id Coverage Id Subscriber's Name Subscriber Id Effective Date Expiration Date [facility] (Medicaid) [id number] Alysa Luevano [id number] Encounters Encounter Location(s) Arrival/Admit Date Discharge/Depart Date Provider(s) Departed Emergency [facility] January 29, 2022 12:23pm January 29, [...] months Rachna Norris MD Work Phone: [address] [facility] [address] Agata Reza MD Work Phone: [address] [address] Agata Reza MD Work Phone: [address] [address] Agata Reza MD Work Phone: [address] [address] Agata Reza MD Work Phone: [phone] [address] Agata Reza MD Work Phone: [phone] [address] Future Procedures Procedure Name Ordered Date Scheduled [...]
--- OUTSIDE RECORDS SUMMARY | 2022-08-06 05:06 | XMS_ITS | Continuity of Care Document ---
Author Name Unknown Address [address] [place] [address] Phone Organization [facility] Address [address] [place] [address] Phone Care Team Providers Care Sexual Health Physician Name Role Phone MD Kerri Rezaly Primary Care Provider MD Srinivas Murry Emergency Provider MD Kwame Erickson Other Provider MD Pa Cooper Attending Provider MD Edilberto Quevedo Other Provider Chief Complaint and Reason for Visit Chief Complaint Right facial numbnes s/weakness Reason for Visit Cerebrovascular dise ase Complicated migraine CVA (cerebral vascular accident) Allergies, Adverse Reactions, Alerts Allergen Type Severity Reaction Last Updated Verified Status aspirin Allergy Unknown May 16 7:40pm Yes Active Sulfa (Sulfonamide Antibiotics) Allergy Unknown May 16, 2022 7:40pm Yes Active Social History Smoking Status Unknown if ever smoked Observation Status Date of Observation Not May 18, 2022 Observation Status Observation Response Date of Response Living Situation Apartment November 15, 2021 12:03pm Services Prior to Admission Home Health Aide [facility] 2021 12:03pm Living Situation Food Stylist Care Facility [facility] 2021 3:42pm Living Situation Apartment November 29, 2021 12:14pm Living Situation Apartment December 01, 2021 1:58pm Living Situation Private Home April 03, 2 023 11:50am Services Prior to Admission None Major chi 2022 3:34pm Is Anyone Dependent on your Care? No January 29, 2022 2:14pm Living Situation Apartment January 29, 2022 2:14pm Living Situation Apartment May 17, 2022 11:10am Services Prior to Admission Home Health Aide Stephanie 2022 2:18pm Lives With Significant other May 17 2:18pm Additional Data Assigned Sex Female Problems Active Problems Medical Problem Onset Date Status Numbness Active Complicated migraine Active Bradycardia Active Cerebrovascular disease Active TIA [...] Cetirizine Discontin ued 10 MG PO DAILY [facility] 2021 11:00pm y 2022 4:22pm Metoprolol Succinate Discontin ued 200 MG PO DAILY [facility] 2021 11:00pm Marua y 2022 4:22pm Chlorthalidon e Discontin ued 25 MG PO DAILY [facility] 2021 11:00pm Sept inessa 2021 11:44p m Chlorthalidon e Discontin ued 75 MG PO DAILY [facility] 2021 11:00pm Marua y 2022 4:20pm Acetaminophen Active 500 MG PO TWICE A DAY [facility] 2021 11:00pm Pantoprazole Discontin ued 40 MG PO DAILY [facility] 2021 11:00pm Marua y 2022 4:24pm Omeprazole Active 20 MG PO DAILY [facility] 2021 11:00pm Verapamil Discontin ued 240 MG PO DAILY [facility] 2021 11:00pm Marua y 2022 10:28a m Fluticasone Propionate (Flovent Hfa) 220 mcg/actuation HFA aerosol inhaler Active 1 INH INH DAILY [facility] 2021 11:00pm Albuterol Sulfate (Proair Hfa) 90 mcg/actuation HFA aerosol inhaler Active 1 INH INH EVERY 6 HOURS [facility] 2021 11:00pm Lisinopril Active 40 MG PO DAILY [facility] 2021 11:00pm Topiramate Discontin ued 100 MG PO DAILY [facility] 2021 11:00pm Marua y 2022 4:24pm Rosuvastatin Discontin ued 20 MG PO DAILY [facility] 2021 11:00pm Marua y 2022 4:53pm Bupropion Hcl Discontin ued 300 MG PO DAILY [facility] 2021 11:00pm Maruar y 2022 4:23pm Cholecalcifer ol (Vitamin D3) (Vitamin D3) 125 mcg (5,000 unit) tablet Active 125 MCG PO DAILY [facility] 2021 11:00pm Acetaminophen Discontin ued 650 MG PO THREE TIMES A DAY [facility] 2021 11:00pm y 2022 4:22pm Clopidogrel Active 75 MG PO DAILY 30 er 2021 11:00pm Atorvastatin Discontin ued 40 MG PO DAILY April 02, 2022 12:00am May 17, 2022 12:08p m Chlorthalidon e Discontin ued 25 MG PO DAILY April 02, 2022 12:00am 2022 10:29a m Rosuvastatin Active 20 MG PO DAILY [facility] 2022 12:00am Meclizine Active 12.5 MG PO THREE [...] MG PO DAILY May 16, 2022 8:19pm [place]-3 Fatty Acids-Fish Oil Active 1 CAP PO DAILY May 16, [...] wo contrast May 17, 2022 8:17pm completed US carotid duplex BI May 17, 2022 1:04pm comp leted Urine Culture active Relevant Diagnostic Tests and/or Laboratory Data Laboratory Results Test Date/Time Result Interpretation Reference Range Result Comment Performing Site White Blood Count May 17, 2022 5:51am 10.5 X10 3/uL 4.5-11.0 [facility] [id number] [address] [place] [address] 47850 Red Blood Count May 17, 2022 5:51am 4.16 X10 6/uL 3.70-5.00 [facility] [id number] [address] [place] [address] 96482 Hemoglobin May 17, 2022 5:51am 12.3 g/dl 11.0-16.0 [facility] [id number] [address] [place] [address] 89111 Hematocrit May 17, 2022 5:51am 38.5 % 33.5-45.0 [facility] [id number] [address] [place] [address] 08396 Mean Corpuscular Volume May 17, 2022 5:51am 92.5 fl 80.0-100.0 [facility] [id number] [address] [place] [address] 20985 Mean Corpuscular Hemoglobin May 17, 2022 5:51am 29.6 pg 27.0-34.0 [facility] [id number] [address] [place] [address] 23707 Mean Corpuscular Hemoglobin Concent May 17, 2022 5:51am 31.9 g/dl 31.0-36.0 [facility] [id number] [address] [place] [address] 02258 Red Cell Distribution Width May 17, 2022 5:51am 12.1 % 11.5-15.0 [facility] [id number] [address] [place] [address] 77703 Platelet Count May 17, 2022 5:51am 333 X10 3/uL 150-400 [facility] [id number] [address] [place] [address] 67022 Immature Granulocyte % (Auto) May 17, 2022 5:51am 0.8 % [facility] [id number] [address] [place] [address] 73556 Neutrophils (%) (Auto) May 17, 2022 5:51am 63.5 % [facility] [id number] [address] [place] [address] 53865 Lymphocytes (%) (Auto) May 17, 2022 5:51am 27.3 % [facility] [id number] [address] [place] [address] 69981 Monocytes (%) (Auto) May 17, 2022 5:51am 6.9 % [facility] [id number] [address] [place] [address] 61392 Eosinophils (%) (Auto) May 17, 2022 5:51am 1.0 % [facility] [id number] [address] [place] [address] 81758 Basophils (%) (Auto) May 17, 2022 5:51am 0.5 % [facility] [id number] [address] [place] [address] 21958 Immature Granulocyte # (Auto) May 17, 2022 5:51am 0.08 X10 3/uL 0.00-0.09 [facility] [id number] [address] [place] [address] 35459 Neutrophils # (Auto) May 17, 2022 5:51am 6.7 X10 3/uL 1.5-7.8 [facility] [id number] [address] [place] [address] 03098 Lymphocytes # (Auto) May 17, 2022 5:51am 2.9 X10 3/uL 1.0-4.8 [facility] [id number] [address] [place] [address] 29413 Monocytes # (Auto) May 17, 2022 5:51am 0.7 X10 3/uL 0.0-0.8 [facility] [id number] [address] [facility] [address] Eosinophils # (Auto) May 17, 2022 5:51am 0.1 X10 3/uL 0.0-0.5 [facility] [id number] [address] [facility] 52574 Basophils # (Auto) May 17, 2022 5:51am 0.1 X10 3/uL 0.0-0.2 [facility] [id number] [address] [place] [address] 44288 Hemoglobin A1c May 17, 2022 5:51am 5.5 4.3-5.9 [facility] [id number] [address] [place] [address] 72370 Estimated Average Glucose (eAG) May 17, 2022 5:51am 111 mg/dl [facility] [id number] [address] [place], [place] [address] Nucleated Red Blood Cells % May 17, 2022 5:51am 0.0 /100 WBC 0.0-0.0 [facility] [id number] [address] [place] [address] 08163 Prothrombin Time May 16, 2022 6:57pm 10.6 Seconds 9.3-12.1 [facility] [id number] [address] [place] [address] Prothromb Time International Ratio May 16, 2022 6:57pm 1.0 0.9-1.2 Reference Interval is for non-anticoagul ated patients.Sugcamilo sted INR Therapeutic Range for Vitamin K antogonist therapy:LEVELS OF THERAPY INDICATIONS TARGET INR RANGEStandard Dose Venous Thrombosis, 2.0 - 3.0 Atrial Fibrillation, Pulmonary Embolism. High Dose Valvular Heart Disease, 2.5 - 3.5 Mechanical Heart, Intracardiac Thrombosis. [facility] [id number] [address] [place] [address] 73557 Urine Color May 16, 2022 10:53pm Yellow Yellow [facility] [id number] [address] [place], [place] [address] Urine Clarity May 16, 2022 10:53pm Clear Clear [facility] [id number] [address] [place] [address] 67336 Urine pH May 16, 2022 10:53pm 7.0 5.0-8.0 [facility] [id number] [address] [place] [address] 06393 Urine Specific [place] May 16, 2022 10:53pm 1.015 1.005-1.[address] [facility] [id number] [address] [place] [address] 47956 Urine Blood May 16, 2022 10:53pm Trace mg/dL Negative [facility] [id number] [address] [place] [address] 00425 Urine Protein May 16, 2022 10:53pm Negative mg/dL Negative [facility] [id number] [address] [place] [address] 60570 Urine Glucose (UA) May 16, 2022 10:53pm Negative mg/dl Negative [facility] [id number] [address] [place] [address] 60580 Urine Ketones May 16, 2022 10:53pm Negative mg/dL Negative [facility] [id number] [address] [place] [address] 74955 Urine Nitrate May 16, 2022 10:53pm Negative Negative [facility] [id number] [address] [place] [address] 01170 Urine Bilirubin May 16, 2022 10:53pm Negative mg/dL Negative [facility] [id number] [address] [place] [address] 46199 Urine Urobilinogen May 16, 2022 10:53pm 0.2 E.U./dL Normal [facility] [id number] [address] [place] [address] 70285 Urine Leukocyte Esterase May 16, 2022 10:53pm Moderate mg/dL Negative [facility] [id number] [address] [place] [address] 53223 Urine RBC (Auto) May 16, 2022 10:53pm None seen /HPF 0-2 [facility] [id number] [address] [place] [address] 10996 Urine WBC (Auto) May 16, 2022 10:53pm 0-5 /HPF 0-5 [facility] [id number] [address] [facility] [address] Urine Epithelial Cells (Auto) May 16, 2022 10:53pm 0-5 /HPF 0-5 [facility] [id number] [address] [facility] 12099 Urine Casts (Auto) May 16, 2022 10:53pm None seen /LPF None Seen [facility] [id number] [address] [place] [address] 36391 Urine Bacteria (Auto) May 16, 2022 10:53pm Rare /HPF None Seen [facility] [id number] [address] [place] [address] 88483 Sodium Level May 17, 2022 5:51am 133 mmol/L 137-146 [facility] [id number] [address] [place] [address] 88209 Potassium Level May 17, 2022 5:51am 3.8 mmol/L 3.5-5.3 Specimen hemolyzed, results affected [facility] [id number] [address] [place] [address] 16118 Chloride Level May 17, 2022 5:51am 96 mmol/L 98-107 [facility] [id number] [address] [place] [address] 08244 Carbon Dioxide Level May 17, 2022 5:51am 24 mmol/L 23-32 [facility] [id number] [address] [place] [address] 20567 Anion Gap May 17, 2022 5:51am 13 mmol/L 5-15 [facility] [id number] [address] [place] [address] 85465 Blood Urea Nitrogen May 17, 2022 5:51am 24 mg/dl 5-25 [facility] [id number] [address] [place] [address] 74743 Creatinine May 17, 2022 5:51am 0.7 mg/dL 0.5-1.1 [facility] [id number] [address] [place] [address] 33745 Estimated Creatinine Clearance May 17, 2022 5:51am 106.9 ml/min This value is calculated by Cockcroft Gault Equation using ideal body weight. This result is dependent on an accurate patient height and weight which is obtained from patients medical record. Louie Morales. and M.H. Gamauricio. Prediction of creatinine clearance from serum creatinine. Nephron. 1976. 16(1):31-41. [facility] [id number] [address] [place] [address] Estimat Glomerular Filtration Rate May 17, 2022 5:51am 97 >90 Reported eGFR is based on the CKD-EPI 2020 equation that does not use a race coefficient. Additional information can be found at:[id number]_ [email or web address].pdf ([email or web address]) [facility] [id number] [address] [place] [address] BUN/Creatinine Ratio May 17, 2022 5:51am 34.3 10.0-20.0 [facility] [id number] [address] [place] [address] Glucose Level May 17, 2022 5:51am 83 mg/dL 70-100 [facility] [id number] [address] [place] [address] Calcium Level May 17, 2022 5:51am 9.7 mg/dl 8.6-10.3 [facility] [id number] [address] [place] [address] Total Bilirubin May 17, 2022 5:51am 0.3 mg/dl <1.1 [facility] [id number] [address] [place] [address] Aspartate Amino Transf (AST/SGOT) May 17, 2022 5:51am 17 U/L 15-41 Specimen hemolyzed, results affected, evaluate with caution. [facility] [id number] [address] [place], [place] [address] Alanine Aminotransferase (ALT/SGPT) May 17, 2022 5:51am 12 U/L 14-54 [facility] [id number] [address] [place], [place] [address] Troponin T High Sensitivity May 17, 2022 [...] the JESUS score for the inpatient setting). [facility] [id number] [address] [place] [address] 10031 Total Protein May 17, 2022 5:51am 7.8 g/dL 6.4-8.3 [facility] [id number] [address] [place] [address] 57444 Albumin May 17, 2022 5:51am 3.6 g/dl 4.0-5.0 [facility] [id number] [address] [place] [address] 89358 Albumin/Globulin Ratio May 17, 2022 5:51am 0.9 1.0-2.6 [facility] [id number] [address] [place] [address] 58196 Triglycerides Level May 17, 2022 5:51am 102 mg/dL <150 <=150 mg/dL = Desirable [facility] [id number] [address] [place], [place] [address] Cholesterol Level May 17, 2022 5:51am 144 mg/dl <199 <200 mg/dL = Desirable [facility] [id number] [address] [place], [place] [address] LDL Cholesterol, Calculated May 17, 2022 5:51am 87 mg/dl <129 [facility] [id number] [address] [place] [address] 83232 HDL Cholesterol May 17, 2022 5:51am 37 mg/dL >40 < 40 mg/dl: Low HDL-cholestero l(major risk factor for CHD)>/= 60 mg/dl: High HDL-cholestero l(negative risk factor for CHD)HDL-choles terol is affected by a number of factors, e.g., smoking, excercise, hormones, sex and age. [facility] [id number] [address] [place] [address] 31461 Cholesterol Ratio (LDL/HDL) May 17, 2022 5:51am 2.4 LDL/HDL Interpretation :Ratio Men Women1/2 Average 1.00 1.47Average 3.55 3.222X Average 6.25 5.033X Average 7.[address] [facility] [id number] [address] [place] [address] 93673 Cholesterol/HDL Ratio May 17, 2022 5:51am 3.9 Cholesterol/HD L Interpretation : Ratio Men Women 1/2 Average 3.43 3.27 Average 4.97 4.44 2X Average 9.55 7.05 3X Average 23.[address] [facility] [id number] [address] [place] [address] 54237 Alkaline Phosphatase May 17, 2022 5:51am 60 U/L 35-104 [facility] [id number] [address] [place] [address] 57240 Bedside Glucose May 16, 2022 10:39pm 118 mg/dl 70-100 NOTE: Any discrepancy between finger stick glucose result and patient's clinical presentation should be confirmed by the laboratory. [facility] [id number] [address] [place] [address] 75121 Diagnostic Imaging Reports Report Dictated Date/Time Dictated By Status Radiology Report May 16, 2022 6:52pm Kade Guajardo MD completed [address] [address] Patient Name: Alysa Luevano Medical Record#: [id number] 1 Address: [address] [place] [address] City/State/Zip: [place] [address]: Martin Murry MD Insurance: [facility] (Medicaid) /Age/Sex: 1960/61/F Self Pay Admit/Reg Date: 05/16/[address]: Juvenal Tyler Location: ED.AH/ PCP: Agata Reza MD Date of Service: 05/16/22 Order (s): CT head stroke wo contrast CPT Code: 48384 Report Number: [id number] Reason for Exam: right sided numbness/weakness ADDENDUM THIS REPORT CONTAINS FINDINGS THAT MAY BE CRITICAL TO PATIENT CARE. The findings were verbally communicated via telephone conference with Srinivas Murry at 6:55 PM EST on 05/16/2022. The findings were acknowledged and understood. This document has been electronically signed by ad Radiologist KADE GUAJARDO MD Addendum Dictated By: [...] IMPRESSION: No acute intracranial findings. ASSESSMENT: ASPECTS ([place] Stroke Program Early CT Score) is 10. This document has been electronically signed by ad Radiologist KADE Bradley Dictated By: Kade Guajardo MD 05/16/221851 Signed By: Kade Guajardo MD 05/16/221851 TD/TT: 05/16/221851Tech: [email or web address] cc: GEORGINA RAMIREZ* Srinivas Murry MD; Agata Reza MD Report Dictated Date/Time Dictated By Status Radiology Report May 16, 2022 7:04pm Kade Guajardo MD completed [address] [address] Patient Name: Alysa Luevano Medical Record#: [id number] 1 Address: [address] [place] [address] City/State/Zip: [place] [address]: Martin Murry MD Insurance: [facility] (Medicaid) /Age/Sex: 1960/61/F Self Pay Admit/Reg Date: 05/16/[address]: Juvenal Tyler Location: ED.AH/ PCP: Agata Reza MD Date of Service: 05/16/22 Order (s): CT angio neck stroke CPT Code: 01953 Report Number: [id number] Reason for Exam: right sided numbness/weakness PROCEDURE [...] This document has been electronically signed by [facility] Radiologist KADE GUAJARDO MD Dictated By: Kade Guajardo MD 05/16/221903 Signed By: Kade Guajardo MD 05/16/221903 TD/TT: 05/16/221903Tech: [email or web address] cc: GEORGINA RAMIREZ* Srinivas Murry MD; Agata Reza MD Report Dictated Date/Time Dictated By Status Radiology Report May 16, 2022 7:10pm Kade Guajardo MD completed [address] [address] Patient Name: Alysa Luevano Medical Record#: [id number] 1 Address: [address] [place] [address] City/State/Zip: [place] [address]: Martin Murry MD Insurance: [facility] (Medicaid) /Age/Sex: 1960/61/F Self Pay Admit/Reg Date: 05/16/[address]: Juvenal Tyler Location: ED.AH/ PCP: Agata Reza MD Date of Service: 05/16/22 Order (s): CT angio head stroke CPT Code: 62980 Report Number: [id number] Reason for Exam: right sided numbness/weakness ADDENDUM [...] Soft tissues: Unremarkable. IMPRESSION: 1. No acute jgzvxz-bg-Rilhkh occlusion. 2. Bilateral internal carotid artery intracranial calcified stenoses severe on the right. 3. 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 This document has been electronically signed by [facility] Radiologist KADE GUAJARDO MD Dictated By: Kade Guajardo MD 05/16/221909 Signed By: Kade Guajardo MD 05/16/221910 TD/TT: 05/16/221909Tech: [email or web address] cc: GEORGINA RAMIREZ* Srinivas Murry MD; Agata Reza MD Report Dictated Date/Time Dictated By Status Radiology Report May 16, 2022 8:06pm Bella George MD completed [address] [address] Patient Name: Alysa Luevano Medical Record#: [id number] 1 Address: [address] [place] [address] City/State/Zip: [place] [address]: Martin Murry MD Insurance: [facility] (Medicaid) /Age/Sex: 1960/61/F Self Pay Admit/Reg Date: 05/16/[address]: Juvenal Tyler Location: ED./ PCP: Agata Reza MD Date of Service: 05/16/22 Order (s): XR chest 1V portable CPT Code: 66381 Report Number: [id number] Reason for Exam: stroke CXR SINGLE AP Indication: Stroke Comparison: November 29, 2021. The heart is not enlarged. There is no focal infiltrate. The costophrenic sulci are sharp. The trachea is midline. IMPRESSION: No evidence of acute disease. Dictated By: Bella George MD 05/16/222005 Signed By: Bella George MD 05/16/222009 TD/TT: 05/16/222005Tech: [facility] cc: GEORGINA RAMIREZ* Srinivas Murry MD; Agata Reza MD Report Dictated Date/Time Dictated By Status Radiology Report May 17, 2022 11:52am Kevin Squires MD completed [address] [address] Patient Name: Alysa Luevano Medical Record#: [id number] 1 Address: [address] [place] [address] City/State/Zip: [place] [address]: Pa Cooper MD Insurance: [facility] (Medicaid) /Age/Sex: 1960/61/F Self Pay Admit/Reg Date: 05/16/[address]: Cb castellon MD Location: [address] PCP: Agata Reza MD Date of Service: 05/17/22 Order (s): MR head/brain wo contrast CPT Code: 72388 Report Number: [id number] Reason for Exam: stroke EXAM: MRI HEAD [...] the left mastoid air cells. Dictated By: Kevin Islas III, MD 05/17/22 115 Signed By: Kevin Islas III, MD 05/17/22 1200 TD/TT: 05/17/22 1152Tech: [email or web address] cc: ANGELITA; HELEN; ASHLEY* Pa Cooper MD; Agata Reza MD; Cb Cassidy MD Report Dictated Date/Time Dictated By Status Radiology Report May 18, 2022 2:30pm [place] [address] Patient Name: Alysa Luevano Medical Record#: [id number] 1 Address: [address] [place] [address] City/State/Zip: [place] [address]: Pa Cooper MD Insurance: [facility] (Medicaid) /Age/Sex: 1960/61/F Self Pay Admit/Reg Date: 05/16/[address]: Kwame Erickson MD Location: [address] PCP: Agata Reza MD Date of Service: 05/17/22 Order (s): US carotid duplex BI CPT Code: 90255 Report Number: [id number] Reason for Exam: assess degree of stenosis CAROTID ULTRASOUND BILATERAL History: Stroke/TIA, carotid bruit Comparison: CT angiogram neck 05/16/2022 Technique: Real-time ultrasound was performed through the common, internal and external carotid arteries bilaterally, utilizing spectral and color Doppler techniques. Flow direction was determined in both vertebral arteries. Findings: Right carotid system: There is mild intimal thickening and plaque visualized in the common carotid artery and bulb extending into the internal carotid artery. The peak systolic and end diastolic velocities at the origin of the right ICA are 92.0 and 20.0 cm/sec respectively. The ICA/CCA ratio is calculated as 1.1. The external carotid artery is patent with antegrade flow. Antegrade flow is present in the vertebral artery. Left carotid system: There is mild to moderate intimal thickening and plaque visualized in the common carotid artery and bulb extending into the internal carotid artery. The peak systolic and end diastolic velocities at the origin of the left ICA are 99.7 and 25.3 cm/sec respectively. The ICA/CCA ratio is calculated as 1.2. The external carotid artery is patent with antegrade flow. Antegrade flow is present in the vertebral artery. NACET criteria is utilized. IMPRESSION: Mild to moderate plaque formation at bulb region, slightly worse on the left. No evidence of a hemodynamically significant carotid artery stenosis on either side. Dictated By: Geo Gamble MD 05/18/221429 Signed By: Geo Gamble MD 05/18/221438 TD/TT: 05/18/221429Tech: [id number] cc: KOKO RAMIREZ* Pa Cooper MD; Agata Reza MD; Kwame Erickson MD Vital Signs Vital Reading Result Reference Range Collection Date/Time Height 162.56 cm May 16, 2022 10:34pm Weight 123.80 kg May 16, 2022 10:34pm Body Temperature 98.2 [degF] 97.6-99.6 May 18, 2022 8:06am Heart Rate 78 /min 60-90 May 18 11:52am Respiratory rate 18 /min 12-May 18, 2022 8:06am Oxygen saturation by Pulse oximetry 95 % 95-100 May 18, 2022 8:0 6am BP Systolic 106 mm[Hg] 90-140 May 18 8:06am BP Diastolic 54 mm[Hg] 60-90 May 18 8:06am BMI (Body Mass Index) 46.8 kg/m2 May [...] 29, 2022 12:23pm Advance Directives No May 17 2:18pm Health Care Proxy No May 17 2:18pm Pt has Medical Orders for Li fe Sustaining Tx Form (MOLST)? No May 17, 2022 2:18pm Insurance Providers Guarantor Alysa Luevano Address [address] [place] [address] Contact Info. Home Phone: Payer Policy Id Coverage Id Subscriber's Name Subscriber Id Effective Date Expiration Date [facility] (Medicaid) [id number] Alysa Luevano [id number] Encounters Encounter Location(s) Arrival/Admit Date Discharge/Depart Date Provider(s) Discharged [facility] May 16, 2022 8:17pm May 18, 2022 4:14pm Pa Cooper MD Recent Diagnosis Onset Date Cerebrovascular disease Complicated migraine CVA (cerebral vascular accident) Functional Status Observation Response Date Recorded Assistive Devices Walker May 17 2:18pm Ambulation Distance 120 May 17, 2 023 11:03am Ambulation Tolerance Fair May 17, 2022 11:03am Date of Last Bowel Movement 05/17/22 Doe 2022 10:13am Toileting Ability Maximum Assistance May 17, 2022 9:45am Mental Status Observation Response Date Recorded Arousable To Name May 18, 2022 10:13am Normal for Patient May 18, 2 023 10:13am Patient Behavior Appropriate May 18 10:13am Cooperative May 18, 2022 10:13am Normal for Patient May 18 023 10:13am Comprehension Ability Understands Concepts May 18, 2022 10:13am Level of Consciousness Awake May 10:13am Alert May 18, 2022 10:13am Appropriate May 18, 2022 10:13am Follows Commands May 18 10:13am Assessments Diagnosis Onset Date Resolution Status Cerebrovascular disease acut e Complicated migraine acute CVA (cerebral vascular accident) acute Plan of [...] 6 months Rachna Norris MD Work Phone: 2 [facility] [address] Agata Reza MD Work Phone: [phone] [phone] Agata Reza MD Work Phone: [phone] [phone] Agata Reza MD Work Phone: [phone] [phone] Agata Reza MD Work Phone: [address] [facility] [address] [address] Case Jameel Mccallwhit will call patient with appointment Agata Reza MD Work Phone: [phone] [phone] Agata Reza MD Work Phone: [phone] [phone] Left message at office Agata Reza MD Work Phone: [phone] [phone] Future Procedures Procedure Name Ordered Date Scheduled Date Hospital Level of Care November 15, 2021 9:43a m November 15, 2021 9:43am Occupational Therapy Consult November 14, 2021 8:57am November 14, 2021 8:57am Physical Therapy Consult November 14, 2021 2:0 9am November 14, 2021 2:09am Activity November 14, 2021 2:09am Septe mber 2021 2:10am Discharge November 16, 2021 2:50pm Septe mb 2021 2:50pm Discharge November 17, 2021 9:43am Septe mb 2021 9:43am ED Transfer of Care to [...] 2022 8:21pm Activity April 02, 2022 3:30pm Jantam y 2022 3:30pm Discharge April 04, 2022 10:30am [...] Level of Care May 16, 2022 8:17pm [facility] 2022 8:17pm Occupational Therapy Consult May 16, 2022 8:1 7pm May 16, 2022 8:17pm Physical Therapy Consult May 16, 2022 8:17pm May 16, 2022 8:17pm Speech Therapy Consult May 16, 2022 8:17pm [facility] 2022 8:17pm Activity May 16, 2022 8:17pm May 8:18pm Aspiration Precautions May 16, 2022 6:32pm [facility] 2022 6:32pm Discharge May 18, 2022 10:27am May 092022 10:27am ED Transfer of Care to Adm Physician [...] 2022 8: 17pm May 16, 2022 8:17pm Vascular Surgery Consult May 17, 2022 12:38pm May 17, 2022 12:39pm Future Medications Future medication information is unavailable Patient Instructions Self-Care for Headaches ED Thrombophlebitis, Superfi cial Amoxicillin/Clavulanate Oral Tablet 875 mg/125 mg Meclizine Oral Tablet 12.5 mg Vertigo Inner Ear Problems Vertigo Medicine Tx Vertigo Staying Safe Discharge Instructions for S troke Goals Acute Goals Absence of falls Including: - Early & often mobilization when appropriate - Passive/active range of motion as appropriate - toileting schedule implementation - implementation of fall risk interventions Skin integrity intact - No evidence of impaired skin integrity - Patient/caregivers participating in preventative measures Management Strategy-OT Management Strategy-PT 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
--- OUTSIDE RECORDS SUMMARY | 2022-08-06 05:06 | XMS_ITS | Continuity of Care Document ---
Author Name Unknown Address [address] [place] [address] Phone Organization [facility] Address [address] [place] [address] Phone Care Team Providers Care Aircrewman Name Role Phone MD Kerri Rezaly Primary Care Provider MD Reyna Rodrigues Emergency Provider [phone] Color Print Inspector, Twan Other Provider Unavailable MD Taina Naqvi Attending Provider [phone] MD Ken Norrisim Other Provider MD [facility] [phone] Chief Complaint and Reason for Visit Chief Complaint TIA ?CvA, headache dizzy Reason for Visit Bradycardia Cerebrovascular disease Numbness TIA (transient ischemic attack) Weakness HTN (hypertension) Obesity Allergies, Adverse Reactions, Alerts Allergen Type Severity Reaction Last Updated Verified Status aspirin Allergy Unknown November 4:11pm Yes Active Sulfa (Sulfonamide Antibiotics) Allergy Unknown December 01, 2021 4:11pm Yes Active Social History Smoking Status Unknown if ever smoked Observation Status Observation Response Date of Response Lives With Spouse November 15 022 1:03pm Living Situation Apartment November 15, 2021 1:03pm Services Prior to Admission Home Health Aide Sep [facility] 2021 1:03pm Living Situation [facility] 2021 4:42pm Living Situation Apartment November 29, 2021 1:14pm Living Situation Apartment December 01, 2021 2:58pm Additional Data Assigned Sex Female Problems Active Problems Medical Problem Onset Date Status Insomnia Active Numbness Active Bradycardia Active Cerebrovascular disease Active TIA (transient ischemic attack) Active Headache Active Weakness Active Chest pain Active HTN (hypertension) Active Obesity Active Medications Medication Status Dose Units Route Directions Qty Days St art Date End Date Instructions Cetirizine Active 10 MG PO DAILY [facility] 2021 12:00am Metoprolol Succinate Active 200 MG PO DAILY [facility] 2021 12:00am Chlorthalidon e Discontin ued 25 MG PO DAILY [facility] 2021 12:00am [facility] 2021 12:44a m Chlorthalidon e Active 75 MG PO DAILY [facility] 2021 12:00am Acetaminophen Active 500 MG PO DAILY [facility] 2021 12:00am Pantoprazole Active 40 MG PO DAILY [facility] 2021 12:00am Omeprazole Active 20 MG PO DAILY [facility] 2021 12:00am Verapamil Active 240 MG PO DAILY [facility] 2021 12:00am Fluticasone Propionate (Flovent Hfa) 220 mcg/actuation HFA aerosol inhaler Active 1 INH INH TWICE A DAY [facility] 2021 12:00am Albuterol Sulfate (Proair Hfa) 90 mcg/actuation HFA aerosol inhaler Active 1 INH INH EVERY 6 HOURS [facility] 2021 12:00am Lisinopril Active 40 MG PO DAILY [facility] 2021 12:00am Topiramate Active 100 MG PO DAILY [facility] 2021 12:00am Rosuvastatin Active 20 MG PO DAILY [facility] 2021 12:00am Bupropion Hcl Active 300 MG PO DAILY [facility] 2021 12:00am Cholecalcifer ol (Vitamin D3) (Vitamin D3) 125 mcg (5,000 unit) tablet Active 125 MCG PO DAILY [facility] 2021 12:00am Acetaminophen Active 650 MG PO THREE TIMES A DAY [facility] 2021 12:00am Clopidogrel Active 75 MG PO DAILY 30 Sept[facility] 2021 12:00am Procedures Procedure Date Performed Status [...] 2021 10: 00am completed Urine Culture completed EKG ED Electrocardiogram November 21, 2021 4: 46pm completed CT head/brain wo contrast November 21, 2021 5 :14pm completed CT head/brain wo contrast November 29, 2021 1 2:53pm completed EKG ED Electrocardiogram November 29, 2021 12 :54pm completed XR chest 1V portable November 29, 2021 12:54p m completed Relevant Diagnostic Tests and/or Laboratory Data Laboratory Results Test Date/Time Result Interpretation Reference Range Result Comment Performing Site Add-On Test Request November 13, 2021 10:48pm Added test [facility] [address] [place] [address] 31359 White Blood Count November 16, 2021 5:35am 11.5 X10 3/uL 4.5-11.0 [facility] [address] [place] [address] 99004 White Blood Count November 21, 2021 5:09pm 13.5 X10 3/uL 4.5-11.0 [facility] [address] [place] [address] 77799 White Blood Count November 29, 2021 1:11pm 9.6 X10 3/uL 4.5-11.0 [facility] [address] [place] [address] 00952 Red Blood Count November 16, 2021 5:35am 4.28 X10 6/uL 3.70-5.00 [facility] [address] [place] [address] 72244 Red Blood Count November 21, 2021 5:09pm 4.70 X10 6/uL 3.70-5.00 [facility] [address] [place] [address] 22792 Red Blood Count November 29, 2021 1:11pm 4.55 X10 6/uL 3.70-5.00 [facility] [address] [place] [address] 59340 Hemoglobin November 16, 2021 5:35am 12.4 g/dl 11.0-16.0 [facility] [address] [place] [address] 27454 Hemoglobin November 21, 2021 5:09pm 13.9 g/dl 11.0-16.0 [facility] [address] [place] [address] 62235 Hemoglobin November 29, 2021 1:11pm 13.3 g/dl 11.0-16.0 [facility] [address] [place] [address] 94020 Hematocrit November 16, 2021 5:35am 39.7 % 33.5-45.0 [facility] [address] [place] [address] 50797 Hematocrit November 21, 2021 5:09pm 42.3 % 33.5-45.0 [facility] [address] [place] [address] 23404 Hematocrit November 29, 2021 1:11pm 41.1 % 33.5-45.0 [facility] [address] [place] [address] 73964 Mean Corpuscular Volume November 16, 2021 5:35am 92.8 fl 80.0-100.0 [facility] [address] [place] [address] 10798 Mean Corpuscular Volume November 21, 2021 5:09pm 90.0 fl 80.0-100.0 [facility] [address] [place] [address] 56069 Mean Corpuscular Volume November 29, 2021 1:11pm 90.3 fl 80.0-100.0 [facility] [address] [place] [address] 52689 Mean Corpuscular Hemoglobin November 16, 2021 5:35am 29.0 pg 27.0-34.0 [facility] [address] [place] [address] 39930 Mean Corpuscular Hemoglobin November 21, 2021 5:09pm 29.6 pg 27.0-34.0 [facility] [address] [place] [address] 26235 Mean Corpuscular Hemoglobin November 29, 2021 1:11pm 29.2 pg 27.0-34.0 [facility] [address] [facility] 99709 Mean Corpuscular Hemoglobin Concent November 16, 2021 5:35am 31.2 g/dl 31.0-36.0 [facility] [address] [place] [address] 06053 Mean Corpuscular Hemoglobin Concent November 21, 2021 5:09pm 32.9 g/dl 31.0-36.0 [facility] [address] [place] [address] 15768 Mean Corpuscular Hemoglobin Concent November 29, 2021 1:11pm 32.4 g/dl 31.0-36.0 [facility] [address] [place] [address] 13863 Red Cell Distribution Width November 16, 2021 5:35am 13.7 % 11.5-15.0 [facility] [address] [place] [address] 92024 Red Cell Distribution Width November 21, 2021 5:09pm 13.8 % 11.5-15.0 [facility] [address] [place] [address] 18572 Red Cell Distribution Width November 29, 2021 1:11pm 13.3 % 11.5-15.0 [facility] [address] [place] [address] 58903 Platelet Count November 16, 2021 5:35am 347 X10 3/uL 150-400 [facility] [address] [place] [address] 92209 Platelet Count November 21, 2021 5:09pm 404 X10 3/uL 150-400 [facility] [address] [place] [address] 34470 Platelet Count November 29, 2021 1:11pm 339 X10 3/uL 150-400 [facility] [address] [place] [address] 53290 Immature Granulocyte % (Auto) November 16, 2021 5:35am 1.5 % [facility] [address] [place] [address] 95319 Immature Granulocyte % (Auto) November 21, 2021 5:09pm 0.7 % [facility] [address] [place] [address] 46896 Immature Granulocyte % (Auto) November 29, 2021 1:11pm 0.6 % [facility] [address] [facility] [place] [address] Neutrophils (%) (Auto) November 16, 2021 5:35am 65.6 % [facility] [address] [facility] [place] [address] Neutrophils (%) (Auto) November 21, 2021 5:09pm 70.0 % [facility] [address] [facility] [place] [address] Neutrophils (%) (Auto) November 29, 2021 1:11pm 73.9 % [facility] [address] [facility] 79448 Lymphocytes (%) (Auto) November 16, 2021 5:35am 26.4 % [facility] [address] [place] [address] 63628 Lymphocytes (%) (Auto) November 21, 2021 5:09pm 21.6 % [facility] [address] [place] [address] [place] [address] Lymphocytes (%) (Auto) November 29, 2021 1:11pm 17.5 % [facility] [address] [place] [address] 39097 Monocytes (%) (Auto) November 16, 2021 5:35am 5.8 % [facility] [address] [place] [address] 13360 Monocytes (%) (Auto) November 21, 2021 5:09pm 6.7 % [facility] [address] [place] [address] [place] [address] Monocytes (%) (Auto) November 29, 2021 1:11pm 6.6 % [facility] [address] [place] [address] 59087 Eosinophils (%) (Auto) November 16, 2021 5:35am 0.3 % [facility] [address] [place] [address] 79105 Eosinophils (%) (Auto) November 21, 2021 5:09pm 0.6 % [facility] [address] [place] [address] [place] [address] Eosinophils (%) (Auto) November 29, 2021 1:11pm 0.8 % [facility] [address] [place] [address] [place] [address] Basophils (%) (Auto) November 16, 2021 5:35am 0.4 % [facility] [address] [place] [address] 77975 Basophils (%) (Auto) November 21, 2021 5:09pm 0.4 % [facility] [address] [place] [address] 92915 Basophils (%) (Auto) November 29, 2021 1:11pm 0.6 % [facility] [address] [place] [address] 39691 Immature Granulocyte # (Auto) November 16, 2021 5:35am 0.17 X10 3/uL 0.00-0.09 [facility] [address] [place] [address] 02904 Immature Granulocyte # (Auto) November 21, 2021 5:09pm 0.10 X10 3/uL 0.00-0.09 [facility] [address] [place] [address] 49275 Immature Granulocyte # (Auto) November 29, 2021 1:11pm 0.06 X10 3/uL 0.00-0.09 [facility] [address] [place] [address] 22368 Neutrophils # (Auto) November 16, 2021 5:35am 7.5 X10 3/uL 1.5-7.8 [facility] [address] [place] [address] 98874 Neutrophils # (Auto) November 21, 2021 5:09pm 9.4 X10 3/uL 1.5-7.8 [facility] [address] [place] [address] 07436 Neutrophils # (Auto) November 29, 2021 1:11pm 7.1 X10 3/uL 1.5-7.8 [facility] [address] [place] [address] 96258 Lymphocytes # (Auto) November 16, 2021 5:35am 3.0 X10 3/uL 1.0-4.8 [facility] [address] [place] [address] 38389 Lymphocytes # (Auto) November 21, 2021 5:09pm 2.9 X10 3/uL 1.0-4.8 [facility] [address] [place] [address] 74963 Lymphocytes # (Auto) November 29, 2021 1:11pm 1.7 X10 3/uL 1.0-4.8 [facility] [address] [place] [address] 25201 Monocytes # (Auto) November 16, 2021 5:35am 0.7 X10 3/uL 0.0-0.8 [facility] [address] [place] [address] 07196 Monocytes # (Auto) November 21, 2021 5:09pm 0.9 X10 3/uL 0.0-0.8 [facility] [address] [place] [address] 74526 Monocytes # (Auto) November 29, 2021 1:11pm 0.6 X10 3/uL 0.0-0.8 [facility] [address] [place] [address] 73682 Eosinophils # (Auto) November 16, 2021 5:35am 0.0 X10 3/uL 0.0-0.5 [facility] [address] [place] [address] 00168 Eosinophils # (Auto) November 21, 2021 5:09pm 0.1 X10 3/uL 0.0-0.5 [facility] [address] [place] [address] 35142 Eosinophils # (Auto) November 29, 2021 1:11pm 0.1 X10 3/uL 0.0-0.5 [facility] [address] [place] [address] 31621 Basophils # (Auto) November 16, 2021 5:35am 0.1 X10 3/uL 0.0-0.2 [facility] [address] [place] [address] 73664 Basophils # (Auto) November 21, 2021 5:09pm 0.1 X10 3/uL 0.0-0.2 [facility] [address] [place] [address] 30222 Basophils # (Auto) November 29, 2021 1:11pm 0.1 X10 3/uL 0.0-0.2 [facility] [address] [place] [address] 23568 Hemoglobin A1c November 14, 2021 3:16pm 5.8 4.3-5.9 [facility] [address] [place] [address] 31163 Estimated Average Glucose (eAG) November 14, 2021 3:16pm 120 mg/dl [facility] [address] [place] [address] 87347 Nucleated Red Blood Cells % November 16, 2021 5:35am 0.0 /100 WBC 0.0-0.0 [facility] [address] [facility] 9[address] Nucleated Red Blood Cells % November 21, 2021 5:09pm 0.0 /100 WBC 0.0-0.0 [facility] [address] [place] [address] 18045 Nucleated Red Blood Cells % November 29, 2021 1:11pm 0.0 /100 WBC 0.0-0.0 [facility] [address] [place] [address] 06929 Urine Color November 14, 2021 3:52am Yellow Yellow [facility] [address] [place] [address] 42754 Urine Color November 29, 2021 2:28pm Yellow Yellow [facility] [address] [place] [address] 17758 Urine Clarity November 14, 2021 3:52am Clear Clear [facility] [address] [place] [address] 57415 Urine Clarity November 29, 2021 2:28pm Clear Clear [facility] [address] [place] [address] 32439 Urine pH November 14, 2021 3:52am 5.0 5.0-8.0 [facility] [address] [place] [address] 08159 Urine pH November 29, 2021 2:28pm 6.5 5.0-8.0 [facility] [address] [place] [address] 18953 Urine Specific [place] November 14, 2021 3:52am >= 1.030 1.005-1.03 0 [facility] [address] [place] [address] 26113 Urine Specific [place] November 29, 2021 2:28pm <= 1.005 1.005-1.03 0 [facility] [address] [place] [address] 56793 Urine Blood November 14, 2021 3:52am Negative mg/dL Negative [facility] [address] [place] [address] 77063 Urine Blood November 29, 2021 2:28pm Negative mg/dL Negative [facility] [address] [place] [address] 79194 Urine Protein November 14, 2021 3:52am Negative mg/dL Negative [facility] [address] [place] [address] 42214 Urine Protein November 29, 2021 2:28pm Negative mg/dL Negative [facility] [address] [place] [address] 61013 Urine Glucose (UA) November 14, 2021 3:52am Negative mg/dl Negative [facility] [address] [place] [address] 78714 Urine Glucose (UA) November 29, 2021 2:28pm Negative mg/dl Negative [facility] [address] [place] [address] 70561 Urine Ketones November 14, 2021 3:52am Negative mg/dL Negative [facility] [address] [place] [address] 59066 Urine Ketones November 29, 2021 2:28pm Negative mg/dL Negative [facility] [address] [place] [address] 46650 Urine Nitrate November 14, 2021 3:52am Negative Negative [facility] [address] [place] [address] 28329 Urine Nitrate November 29, 2021 2:28pm Negative Negative [facility] [address] [place] [address] 28364 Urine Bilirubin November 14, 2021 3:52am Negative mg/dL Negative [facility] [address] [place] [address] 42168 Urine Bilirubin November 29, 2021 2:28pm Negative mg/dL Negative [facility] [address] [place] [address] 48687 Urine Urobilinogen November 14, 2021 3:52am 0.2 E.U./dL Normal [facility] [address] [place] [address] 57398 Urine Urobilinogen November 29, 2021 2:28pm 1.0 E.U./dL Normal [facility] [address] [place] [address] 53117 Urine Leukocyte Esterase November 14, 2021 3:52am Moderate mg/dL Negative [facility] [address] [place] [address] 12119 Urine Leukocyte Esterase November 29, 2021 2:28pm Negative mg/dL Negative [facility] [address] [place] [address] 53897 Urine RBC (Auto) November 14, 2021 3:52am None seen /HPF 0-2 [facility] [address] [place] [address] 00773 Urine WBC (Auto) November 14, 2021 3:52am 11-25 /HPF 0-5 [facility] [address] [place] [address] 24660 Urine Epithelial Cells (Auto) November 14, 2021 3:52am 6-10 /HPF 0-5 [facility] [address] [place] [address] 14459 Urine Casts (Auto) November 14, 2021 3:52am None seen /LPF None Seen [facility] [address] [place] [address] 47247 Urine Bacteria (Auto) November 14, 2021 3:52am Rare /HPF None Seen [facility] [address] [place] [address] 45760 Sodium Level November 16, 2021 5:35am 137 mmol/L 137-146 [facility] [address] [place] [address] 14995 Sodium Level November 21, 2021 5:09pm 135 mmol/L 137-146 [facility] [address] [place] [address] 80310 Sodium Level November 29, 2021 1:11pm 135 mmol/L 137-146 [facility] [address] [place] [address] 99822 Potassium Level November 16, 2021 5:35am 4.2 mmol/L 3.5-5.3 [facility] [address] [place] [address] 62368 Potassium Level November 21, 2021 5:09pm 4.7 mmol/L 3.5-5.3 [facility] [address] [place] [address] 22017 Potassium Level November 29, 2021 1:11pm 4.3 mmol/L 3.5-5.3 [facility] [address] [place] [address] 78172 Chloride Level November 16, 2021 5:35am 99 mmol/L 98-107 [facility] [address] [place] [address] 78567 Chloride Level November 21, 2021 5:09pm 101 mmol/L 98-107 [facility] [address] [place] [address] 58231 Chloride Level November 29, 2021 1:11pm 100 mmol/L 98-107 [facility] [address] [place] [address] 05441 Carbon Dioxide Level November 16, 2021 5:35am 27 mmol/L 23-32 [facility] [address] [facility] 75019 Carbon Dioxide Level November 21, 2021 5:09pm 22 mmol/L [facility] [address] [facility] 86633 Carbon Dioxide Level November 29, 2021 1:11pm 22 mmol/L [facility] [address] [place] [address] 23245 Anion Gap November 16, 2021 5:35am 11 mmol/L 07-23 [facility] [address] [facility] 40227 Anion Gap November 21, 2021 5:09pm 12 mmol/L 07-23 [facility] [address] [place] [address] 87004 Anion Gap November 29, 2021 1:11pm 13 mmol/L - [facility] [address] [place] [address] 65210 Blood Urea Nitrogen November 16, 2021 5:35am 31 mg/dl 08-02 [facility] [address] [place] [address] 98042 Blood Urea Nitrogen November 21, 2021 5:09pm 49 mg/dl 08-02 [facility] [address] [place] [address] 17322 Blood Urea Nitrogen November 29, 2021 1:11pm 25 mg/dl 08-02 [facility] [address] [place] [address] 66396 Creatinine November 16, 2021 5:35am 1.2 mg/dL 0.5-1.1 [facility] [address] [place] [address] 53341 Creatinine November 21, 2021 5:09pm 1.3 mg/dL 0.5-1.1 [facility] [address] [place] [address] 77250 Creatinine November 29, 2021 1:11pm 0.9 mg/dL 0.5-1.1 [facility] [address] [place] [address] 41227 Estimated Creatinine Clearance November 16, 2021 5:35am 65.4 ml/min This value is calculated by Cockcroft Gault Equation using ideal body weight. This result is dependent on an accurate patient height and weight which is obtained from patients medical record. [employer], Mirna.W. and M.H. Gault. Prediction of creatinine clearance from serum creatinine. Nephron. 1976. 16(1):31-41. [facility] [address] [facility] 9[address]88 Estimated Creatinine Clearance November 21, 2021 5:09pm 56.8 ml/min This value is calculated by Cockcroft Gault Equation using ideal body weight. This result is dependent on an accurate patient height and weight which is obtained from patients medical record. Cockcroft, D.W. and M.H. Gault. Prediction of creatinine clearance from serum creatinine. Nephron. 1975. 16(1):31-41. [facility] [address] [facility] 08268 Estimated Creatinine Clearance November 29, 2021 1:11pm 74.8 ml/min This value is calculated by Cockcroft Gault Equation using ideal body weight. This result is dependent on an accurate patient height and weight which is obtained from patients medical record. Cockcroft, D.W. and M.H. Gault. Prediction of creatinine clearance from serum creatinine. Nephron. 1975. 16(1):31-41. [facility] [address] [facility] 49248 Estimated GFR () November 16, 2021 5:35am 56 >60 [facility] [address] [place] [address] 75282 Estimated GFR () November 21, 2021 5:09pm 51 >60 [facility] [address] [place] [address] 90457 Estimated GFR () November 29, 2021 1:11pm 79 >60 [facility] [address] [place] [address] 02997 Estimated GFR (Non- November 16, 2021 5:35am 48 >60 [facility] [address] [place] [address] 80864 Estimated GFR (Non- November 21, 2021 5:09pm 44 >60 [facility] [address] [place] [address] 05248 Estimated GFR (Non- November 29, 2021 1:11pm 68 >60 [facility] [address] [place] [address] 59059 BUN/Creatinine Ratio November 16, 2021 5:35am 25.8 10.0-20.0 [facility] [address] [place] [address] 85195 BUN/Creatinine Ratio November 21, 2021 5:09pm 37.7 10.0-20.0 [facility] [address] [facility] 07670 BUN/Creatinine Ratio November 29, 2021 1:11pm 27.8 10.0-20.0 [facility] [address] [facility] 80933 Glucose Level November 16, 2021 5:35am 97 mg/dL 70-100 [facility] [address] [place] [address] 47134 Glucose Level November 21, 2021 5:09pm 114 mg/dL 70-100 [facility] [address] [place] [address] 42108 Glucose Level November 29, 2021 1:11pm 111 mg/dL 70-100 [facility] [address] [place] [address] 99778 Calcium Level November 16, 2021 5:35am 9.6 mg/dl 8.6-10.3 [facility] [address] [place] [address] 42791 Calcium Level November 21, 2021 5:09pm 10.0 mg/dl 8.6-10.3 [facility] [address] [place] [address] 38761 Calcium Level November 29, 2021 1:11pm 9.6 mg/dl 8.6-10.3 [facility] [address] [place] [address] 07498 Magnesium Level November 16, 2021 5:35am 2.5 mg/dL 1.8-2.5 [facility] [address] [place] [address] 70237 Total Bilirubin November 14, 2021 3:16pm < 0.2 mg/dl <1.1 [facility] [address] [place] [address] 09386 Aspartate Amino Transf (AST/SGOT) November 14, 2021 3:16pm 19 U/L 15-41 [facility] [address] [place] [address] 07782 Alanine Aminotransferase (ALT/SGPT) November 14, 2021 3:16pm 12 U/L 14-54 [facility] [address] [place] [address] 00931 Troponin T High Sensitivity November 13, 2021 [...] the JESUS score for the inpatient setting). [facility] [address] [place] [address] 10604 Troponin T High Sensitivity November 21, 2021 5:09pm 9 ng/L <8 Normal range: Females <9 ng/L [...] the JESUS score for the inpatient setting). [facility] [address] [place] [address] 29599 Troponin T High Sensitivity November 29, 2021 2:08pm 8 ng/L <8 Normal range: Females <9 [...] the JESUS score for the inpatient setting). [facility] [address] [place] [address] 90676 BL-Xuj-Q-Type Natriuretic Peptide November 13, 2021 9:45pm 153 pg/mL 0-900 The half-life of plasma BNP is significantly increased in patients with compromised renal function. [facility] [address] [place] [address] 49755 Total Protein November 14, 2021 3:16pm 7.6 g/dL 6.4-8.3 [facility] [address] [place] [address] 87017 Albumin November 14, 2021 3:16pm 3.5 g/dl 4.0-5.0 [facility] [address] [place] [address] 12335 Albumin/Globulin Ratio November 14, 2021 3:16pm 0.9 1.0-2.6 [facility] [address] [place] [address] 53143 Triglycerides Level November 14, 2021 3:16pm 179 mg/dL <150 151 - 199 mg/dL = Borderline High [facility] [address] [place] [address] 20425 Cholesterol Level November 14, 2021 3:16pm 189 mg/dl <199 <200 mg/dL = Desirable [facility] [address] [place] [address] 29353 LDL Cholesterol, Calculated November 14, 2021 3:16pm 117 mg/dl <129 [facility] [address] [place] [address] 74071 HDL Cholesterol November 14, 2021 3:16pm 36 mg/dL >40 < 40 mg/dl: Low HDL-cholestero l(major risk factor for CHD) >/= 60 mg/dl: High HDL-cholestero l(negative risk factor for CHD) HDL-cholestero l is affected by a number of factors, e.g., smoking, excercise, hormones, sex and age. [facility] [address] [place] [address] 64079 Cholesterol Ratio (LDL/HDL) November 14, 2021 3:16pm 3.3 LDL/HDL Interpretation : Ratio Men Women 1/2 Average 1.00 1.47 Average 3.55 3.22 2X Average 6.25 5.03 3X Average 7.99 6.14 [facility] [address] [place] [address] 25839 Cholesterol/HDL Ratio November 14, 2021 3:16pm 5.3 Cholesterol/HD L Interpretation : Ratio Men Women 1/2 Average 3.43 3.27 Average 4.97 4.44 2X Average 9.55 7.05 3X Average 23.39 11.04 [facility] [address] [place] [address] 94415 Alkaline Phosphatase November 14, 2021 3:16pm 47 U/L 35-104 [facility] [address] [place], [place] [id number] Thyroid Stimulating Hormone (Reflex November 14, 2021 3:16pm 1.95 uIU/mL 0.34-5.60 [facility] [address] [place] [address] 84629 Bedside Glucose November 15, 2021 8:35pm 133 mg/dl 70-100 NOTE: Any discrepancy between finger stick glucose result and patient's clinical presentation should be confirmed by the laboratory. [facility] [address] [place] [address] 51892 Bedside Glucose November 21, 2021 4:52pm 112 mg/dl 70-100 NOTE: Any discrepancy between finger stick glucose result and patient's clinical presentation should be confirmed by the laboratory. [facility] [address] [facility] [address] Microbiology Results Procedure Source Result Collection Date/Time Result Date/Time Result Comment Performing Site Urine Culture Urine,Miri n Catch Mixed janis November 16, 2021 9:36am [facility] [address] [facility] [place] [address] Diagnostic Imaging Reports Report Dictated Date/Time Dictated By Status Radiology Report November 13, 2021 10:32pm Italia Bales MD completed [facility] [address] [place] [address] Patient Name: Alysa Luevano Medical Record#: [id number] 1 Address: [address] [place] [address] City/State/Zip: [place] [address]: Rhonda Rodrigues MD Insurance: [email or web address] by [facility] (Med[facility]) /Age/Sex: 1960/61/F Self Pay Admit/Reg Date: 11/13/[address]: Juvenal Fritz Location: ED.AH/ PCP: Agata Reza MD Date of Service: 11/13/21 Order (s): XR chest 1V portable CPT Code: 60895 Report Number: [id number] Reason for Exam: Chest Pain PROCEDURE INFORMATION: [...] By: Italia Bales MD 11/13/212231 TD/TT: 11/13/212231Tech: [id number] cc: ANTHONY RAMIREZ* Agata Reza MD; Reyna Rodrigues MD Report Dictated Date/Time Dictated By Status Radiology Report November 13, 2021 11:42pm Italia Bales MD completed [facility] [address] [place] [address] Patient Name: Alysa Luevano Medical Record#: [id number] 1 Address: [address] [place] [address] City/State/Zip: [place] [address]: Rhonda Rodrigues MD Insurance: [employer] (Medicaid) /Age/Sex: 1960/61/F Self Pay Admit/Reg Date: 11/13/[address]: Juvenal Fritz Location: ED.AH/ PCP: Agata Reza MD Date of Service: 11/13/21 Order (s): CT head stroke wo contrast CPT Code: 01845 Report Number: [id number] Reason for Exam: R sided numbness, TIA ADDENDUM The findings were verbally communicated via telephone conference with Reyna Rodrigues at 11:46 PM EDT on 11/13/2021. The findings were acknowledged and understood. This document has been electronically signed by ad Radiologist ITALIA BALES MD Addendum Dictated By: [...] IMPRESSION: No acute intracranial abnormalities. ASSESSMENT: ASPECTS ([place] Stroke Program Early CT Score) is 10. This document has been electronically signed by [facility] Radiologist ITALIA BALES MD Dictated By: Italia Bales MD 11/13/212341 Signed By: Italia Bales MD 11/13/212342 TD/TT: 11/13/212341Tech: [id number] cc: CYNTHIA; ASHLEY* Agata Reza MD; Reyna Rodrigues MD Report Dictated Date/Time Dictated By Status Radiology Report November 13, 2021 11:43pm [place] [address] Patient Name: Alysa Luevano Medical Record#: [id number] 1 Address: [address] [place] [address] City/State/Zip: [place] [address]: Rhonda Rodrigues MD Insurance: [employer] (Medicaid) /Age/Sex: 1960/61/F Self Pay Admit/Reg Date: 11/13/[address]: Juvenal Fritz Location: ED.AH/ PCP: Agata Reza MD Date of Service: 11/13/21 Order (s): CT angio neck stroke CPT Code: 50799 Report Number: [id number] Reason for Exam: R sided numbness, TIA [...] Bales MD 11/13/212343 TD/TT: 11/13/212342Tech: [id number] cc: CYNTHIA; ASHLEY* Agata Reza MD; Reyna Rodrigues MD Report Dictated Date/Time Dictated By Status Radiology Report November 14, 2021 12:24am Italia Bales MD completed [address] [address] Patient Name: Alysa Luevano Medical Record#: [id number] 1 Address: [address] [place] [address] City/State/Zip: [place] [address]: Rhonda Rodrigues MD Insurance: [employer] (Medicaid) /Age/Sex: 1960/61/F Self Pay Admit/Reg Date: 11/13/[address]: Juvenal Fritz Location: ED.AH/ PCP: Agata Reza MD Date of Service: 11/13/21 Order (s): CT angio head stroke CPT Code: 67437 Report Number: [id number] Reason for Exam: R sided numbness, TIA [...] BALES MD Dictated By: Italia Bales MD 11/14/21 0024 Signed By: Italai Bales MD 11/14/21 0024 TD/TT: 11/14/21 0024Tech: [id number] cc: ANTHONY RAMIREZ* Agata Reza MD; Reyna Rodrigues MD Report Dictated Date/Time Dictated By Status Echocardiogram November 14, 2021 8:01am [place] [address] Patient Name: Alysa Luevano Medical Record#: [id number] 1 Address: [address] [place] [address] City/State/Zip: [place] [address]: Chad Naqvi MD Insurance: [employer] (Medicaid) /Age/Sex: 1960/61/F Self Pay Admit/Reg Date: 11/14/[address]: Demarcus Grigsby MD [id number] PCP: Agata Reza MD Date of Service: 11/14/21 Order (s): Echo TTE comp w/dop w contrast CPT Code: C8929 Report Number: [id number] Reason for Exam: tia Transthoracic Echocardiography Report (TTE) Demographics Patient Name Bassem Watt Gender Female MR Number [id number] Date of 1960 Age 61 year(s) Room Number ET9998 Height 66 inches Date of study 11/14/2021 Weight 280.01 pounds Referring BSA 2.31 m^2 Interpreting MD Jeniffer Guardado MD BMI 45.19 kg/m^2 Fellow Director Of Operations Support Dia 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 Mild mitral regurgitation. No aortic stenosis. No aortic regurgitation. The aortic valve is not well visualized. Fkmz-ql-swyizuwm tricuspid regurgitation. Pulmonary artery systolic pressure is [...] valve is not well visualized. TRICUSPID VALVE: Nuvu-kg-skrgestm tricuspid regurgitation. Pulmonary artery systolic pressure is [...] cm Signature Dictated By: Jeniffer Guardado MD 11/14/21 08 Signed By: Jeniffer Guardado MD 11/14/21 164 TD/TT: 11/14/21 08Tech: [facility] cc: TESSIE; KRISTIN; ASHLEY* Demarcus Grigsby MD; Agata Reza MD; Jeniffer Guardado MD Report Dictated Date/Time Dictated By Status Radiology Report November 15, 2021 9:36am Jose Alberto Bangura MD completed [address] [address] Patient Name: Alysa Luevano Medical Record#: [id number] 1 Address: [address] [place] [address] City/State/Zip: [place] [address]: Chad Naqvi MD Insurance: [employer] (Medicaid) /Age/Sex: 1960/61/F Self Pay Admit/Reg Date: 11/14/[address]: Demarcus Grigsby MD Location: [address] PCP: Agata Reza MD Date of Service: 11/15/21 Order (s): MR head/brain wo contrast CPT Code: 73843 Report Number: [id number] Reason for Exam: tia ADDENDUM Impression to Dr. Chalo Naqvi on November 15, 2021 at 12:32 PM by the [facility] PRA. Addendum Dictated By: Jose Alberto Bangura MD Addendum Signed By: Jose Alberto Bangura MD 11/15/21 1245 DD/ /29/1242 TD/TT: 11/15/2109/29/1242 MR head/brain wo [...] 11/15/21935 Signed By: Jose Alberto Bangura MD 11/15/21 0947 TD/TT: 11/15/21935Tech: [id number] cc: TESSIE; LUIS RAMIREZ* Demarcus Grigsby MD; Agata Reza MD; Taina Naqvi MD Report Dictated Date/Time Dictated By Status Electrocardiogram November 15, 2021 7:22pm Jeniffer Guardado [place] [address] Patient Name: Alysa Luevano Medical Record#: [id number] 1 Address: [address] [place] [address] City/State/Zip: [place] [address]: Chad Naqvi MD Insurance: [email or web address] et (Medicaid) /Age/Sex: 1960/61/F Self Pay Admit/Reg Date: 11/15/[address]: Juvenal Dubon [facility] PCP: Agata Reza MD Date of Service: 11/15/21 Order (s): EKG Electrocardiogram CPT Code: 12708 Report Number: [id number] Reason for Exam: PAIN JUNCTIONAL BRADYCARDIA with PACs Comparison Summary: No serial comparison made Summary: Abnormal ECG Dictated By: Jeniffer Guardado MD 11/15/211921 Signed By: Jeniffer Guardado MD 11/16/212047 TD/TT: 11/15/211921Tech: [email or web address] cc: LUIS RAMIREZ* Agata Reza MD; Taina Naqvi MD Report Dictated Date/Time Dictated By Status Radiology Report November 21, 2021 6:30pm [place] [address] Patient Name: Alysa Luevano Medical Record#: [id number] 1 Address: [address] [place] [address] City/State/Zip: [place] [address]: Haja Alcantara MD Insurance: [email or web address] et (Medicaid) /Age/Sex: 1960/61/F Self Pay Admit/Reg Date: 11/21/[address]: Carroll castellon MD Location: [facility]/ PCP: Agata Reza MD Date of Service: 11/21/21 Order (s): CT head/brain wo contrast CPT Code: 24783 Report Number: [id number] Reason for Exam: headache, recent CVa, right sided defecits CLINICAL HISTORY: Left thalamus. Patient complains of headaches and right-sided deficit. Please evaluate. TECHNIQUE: Axial images through the head were obtained. Bone and soft tissue windows were obtained. Sagittal and coronal reconstructions were performed on the same workstation. Automated exposure control and dose reduction techniques were utilized with mA and kV adjusted for patient size. FINDINGS: Comparison is made to prior CT scan and MRI on 11/13/2021. Note is made of the developing area of low-attenuation in the left thalamus most consistent with the evolving left lacunar infarction. This has a maximum diameter of 1 cm (image 25 and 26 of series 2). No new area of low attenuation is noted to suggest any large area of infarction. There is normal robin-white matter differentiation. There are moderately prominent sulci noted most consistent with age-related cortical parenchymal tissue loss. The ventricles are of appropriate size and configuration. There are few unchanged focal areas of low-attenuation in the periventricular and subcortical white matter most consistent with chronic ischemic gliotic changes of small vessel disease. There is no evidence of any intra-axial or extra-axial hemorrhage. There is no evidence of any midline shift. There is no evidence of any mass, mass effect or edema. The cerebellum and brainstem are grossly unremarkable. The pituitary gland is nonenlarged. There are mild vascular calcifications noted of the internal carotid artery siphons. The visualized extra-axial regions are unremarkable for acute abnormality. There is no evidence of any fracture of the calvarium. The bone windows are unremarkable for acute abnormality. IMPRESSION: 1. There is no evidence of any intracranial hemorrhage. 2. Note is made of the new involving left thalamic infarction as seen on the MRI. 3. No obvious new large area of territorial mass effect or edema is seen to suggest any large area of acute infarction or mass on this nonenhanced study. MRI would be more sensitive for subtle areas of acute ischemia. 4. There is age-related parenchymal tissue loss and chronic ischemic gliotic changes of small vessel disease. Dictated By: Emmanuel La MD 11/21/211829 Signed By: Emmanuel La MD 11/21/211836 TD/TT: 11/21/211829Tech: [id number] cc: [email or web address]; ASHLEY* Agata Reza MD; Carroll Alcantara MD Report Dictated Date/Time Dictated By Status Radiology Report November 29, 2021 1:29pm Goe Gamble MD completed [address] [address] Patient Name: Alsya Luevano Medical Record#: [id number] 1 Address: [address] [place] [address] City/State/Zip: [place] [address]: Rhonda Rodrigues MD Insurance: [employer] (Medicaid) /Age/Sex: 1960/61/F Self Pay Admit/Reg Date: 11/29/[address]: Juvenal Fritz Location: ED.AH/ PCP: Agata Reza MD Date of Service: 11/29/21 Order (s): XR chest 1V portable CPT Code: 58521 Report Number: [id number] Reason for Exam: chest pain PROCEDURE: XR chest 1V portable INDICATION: chest pain COMPARISON: None. FINDINGS: The study is slightly limited by the patient's large size. Lines and Tubes: None. Heart and Mediastinum: The heart and mediastinal contours appear unremarkable. Lungs and Pleura: The lungs are clear. There are no pleural effusions. Skeletal Structures: The visualized skeletal structures are unremarkable for age. IMPRESSION: No acute pulmonary disease.. Dictated By: Geo Gamble MD 11/29/211328 Signed By: Geo Gamble MD 11/29/21 1334 TD/TT: 11/29/21 1329Tech: [id number] cc: ANTHONY RAMIREZ* Agata Reza MD; Reyna Rodrigues MD Report Dictated Date/Time Dictated By Status Radiology Report November 29, 2021 1:46pm Amaury cuba MD completed [address] [address] Patient Name: Alysa Luevano Medical Record#: [id number] 1 Address: [address] [place] [address] City/State/Zip: [place] [address]: Rhonda Rodrigues MD Insurance: [employer] (Medicaid) /Age/Sex: 1960/61/F Self Pay Admit/Reg Date: 11/29/[address]: Juvenal Fritz Location: ED.AH/ PCP: Agata Reza MD Date of Service: 11/29/21 Order (s): CT head/brain wo contrast CPT Code: 79675 Report Number: [id number] Reason for Exam: known stroke, ?worsening r arm weakness Noncontrast CT of the head. Sagittal and coronal reformations were obtained. AEC dose reduction technique used Indication: Worsening right arm weakness Findings: PARENCHYMA: No acute infarct. No intracranial hemorrhage. Compared to prior study from 11/21/2021, no new thalamus abnormality is noted.. EXTRA-AXIAL: No extra-axial collection VENTRICLES/CISTERNS/SULCI: No evidence of hydrocephalus CALVARIUM: No lytic lesion seen in the calvarium. SINUSES: No evidence of sinusitis. There is partial opacification of left mastoid air cells. IMPRESSION: No acute infarct or intracranial hemorrhage. Dictated By: Amaury Simpson MD 11/29/21 1346 Signed By: Amaury Simpson MD 11/29/21 1401 TD/TT: 11/29/21 1346Tech: [id number] cc: ANTHONY RAMIREZ* Agata Reza MD; Reyna Rodrigues MD Vital Signs Vital Reading Result Reference [...] (Body Mass Index) 54.7 kg/m2 2021 9:42pm Height 157.48 cm November 21, 2021 4:29pm Weight 127.91 kg November 21, 2021 4:29pm Body Temperature 98.5 [degF] 97.6-99.6 November 092021 4:29pm Heart Rate 68 /min 60-90 November 21, 2021 7:51pm Respiratory rate 18 /min 03-03November 092021 7:51pm Oxygen saturation by Pulse oximetry 98 % 95-100 November 21, 2021 7:51pm BP Systolic 105 mm[Hg] 90-140 November 21, 2021 7:51pm BP Diastolic 59 mm[Hg] 60-90 November 21, 2021 7:51pm BMI (Body Mass Index) 51.6 kg/m2 2021 4:29pm Height 154.94 cm November 29, 2021 1:06pm Weight 113.39 kg November 29, 2021 1:06pm Body Temperature 98.0 [degF] 97.6-99.6 November 102021 1:06pm Heart Rate 82 /min 60-November 29, 2021 4:20pm Respiratory rate 19 /min 03-03November 102021 4:20pm Oxygen saturation by Pulse oximetry 99 % 95-100 November 29, 2021 4:20pm BP Systolic 105 mm[Hg] 90-140 November 29, 2021 4:20pm BP Diastolic 54 mm[Hg] 60-90 November 29, 2021 4:20pm BMI (Body Mass Index) 47.2 kg/m2 2021 1:06pm Height 165.1 cm December 01, 2021 2:47pm Weight 127.00 kg December 01, 2021 2:47pm Body Temperature 98.2 [degF] 97.6-99.6 November 102021 2:47pm Heart Rate 78 /min 60-90 December 01, 2021 4:40pm Respiratory rate 18 /min 03-03November 102021 4:40pm Oxygen saturation by Pulse oximetry 96 % 95-100 December 01, 2021 4:40pm BP Systolic 132 mm[Hg] 90-140 December 01, 2021 4:40pm BP Diastolic 82 mm[Hg] 60-90 December 01, 2021 4:40pm BMI (Body Mass Index) 46.6 kg/m2 Septem inessa 23rd, 2022 2:47pm Advance Directives Advance Directive Response Recorded Date/ Time Pt has Medical Orders for Li fe Sustaining Tx Form (MOLST)? No November 14, 2021 10:59am Advance Directives No November 10:59am Health Care Proxy No November 14, 2021 10:59am Advance Directives No November 4:18pm Health Care Proxy No November 4:18pm Advance Directives No November 12:53pm Health Care Proxy No November 12:53pm Advance Directives No November 2:41pm Health Care Proxy No November 2:41pm Insurance Providers Guarantor Alysa Luevano Address [address] [address] Contact Info. Home Phone: Payer Policy Id Coverage Id Subscriber's Name Subscriber Id Effective Date Expiration Date [facility] (Medicaid) [id number] Alysa Luevano [id number] Encounters Encounter Location(s) Arrival/Admit Date Discharge/Depart Date Provider(s) Discharged Inpatient [facility] November 15, 2021 10:43am November 17, 2021 12:23pm Taina Naqvi MD Departed Emergency [facility] November 21, 2021 4:16pm November 21, 2021 8:18pm null Depart[address] Emergency [facility] November 29, 2021 12:53pm November 29, 2021 5:56pm null Depart[address] Emergency [facility] December 01, 2021 2:40pm December 01, 2021 4:41pm null Recent Diagnosis Onset Date Bradycardia Cerebrovascular disease Numbness TIA (transient ischemic attack) Weakness HTN (hypertension) Obesity Functional Status Observation Response Date Recorded Assistive Devices Cane November 14, 2021 10:59am Ambulation Distance November 11:08am Ambulation Tolerance Fair November 162021 11:06am Ambulation Tolerance Fair November 172021 11:08am Bathing Type Bath in a Bag with Setup Sept2021 11:06am Date of Last Bowel Movement 11/15/21 Sept ember 2021 1:20am Oral Care Mouth Rinse November 16 8:30pm Toileting Ability Maximum Assistance November 172021 10:40am Mental Status Observation Response Date Recorded Arousable To Name November 17 11:41am Patient Behavior Appropriate November 17, 2021 11:41am Cooperative November 17 11:41am Comprehension Ability Understands Concepts [facility] mb 2021 11:41am Level of Consciousness Awake November 17, 2021 11:41am Alert November 17 11:41am Appropriate November 17 11:41am Follows Commands November 17, 2021 11:41am Patient Behavior Appropriate November 29, 2021 1:24pm Level of Consciousness Awake November 29, 2021 1:24pm Alert November 29, 2021 1:24pm Assessments Diagnosis Onset Date Resolution Status Bradycardia [...] months Rachna Norris MD Work Phone: [address] [facility] [address] Agata Reza MD Work Phone: [address] [address] Agata Reza MD Work Phone: [address] [address] Agata Reza MD Work Phone: [address] [address] Agata Reza MD Work Phone: [address] [address] Future Procedures Procedure Name Scheduled Date Hospital [...] Vascular Surgery Consult November 14, 2021 2:33pm Saline Lock Insert/Manage November 4:46pm Oxygen Initiate/Maintain November 21, 2021 4:46pm Continuous Pulse Oximetry November 4:46pm Future Medications Future medication information is unavailable Patient Instructions Self-Care for Headaches Goals Acute Goals You were seen in the emergen department for symptoms related here known stroke. Please continue to take all medications as previously prescribed, follow up with her outpatient providers, seek medical attention for any new or concerning symptom. It has been a privilege caring for you this evening. A CT scan today did not show any evolution of your known stroke. You were seen in the emergen cy department for headache, and chest pain. Your blood work, EKG, CT scan of your brain, and chest x-ray were all reassuring. Please follow-up with primary care doctor as needed. Return to the hospital for any new or worsening symptoms. You are being discharged perez e with instructions to follow-up with your outpatient providers in the next 24-48 hours. Please call to schedule an appointment. Please seek medical attention promptly, including a return to the emergency department, for any new or concerning symptoms or if you feel unsafe in any way. It has been a privilege caring for you. Absence of falls Including: - Early & [...]
--- OUTSIDE RECORDS SUMMARY | 2022-08-06 05:06 | XMS_ITS | Continuity of Care Document ---
Author Name Unknown Address [address] [place] [address] Phone Organization [facility] Address [address] [place] [address] Phone Care Team Providers Care Scaffold Setter Name Role Phone MD Kerri Rezaly Primary Care Provider MD Reyna Rodrigues Emergency Provider Transformation Analyst, Twan Other Provider Unavailable MD Taina Naqvi Attending Provider MD Ken Norrisim Other Provider MD [facility] [phone] Chief Complaint and Reason for Visit Chief Complaint TIA ?CvA, headache Reason for Visit Bradycardia Cerebrovascular disease Numbness TIA (transient ischemic attack) Weakness HTN (hypertension) Obesity Allergies, Adverse Reactions, Alerts Allergen Type Severity Reaction Last Updated Verified Status aspirin Allergy Unknown November 1:05pm Yes Active Sulfa (Sulfonamide Antibiotics) Allergy Unknown November 29, 2021 1:05pm Yes Active Social History Smoking Status Unknown if ever smoked Observation Status Observation Response Date of Response Lives With Spouse November 15 022 1:03pm Living Situation Apartment November 15, 2021 1:03pm Services Prior to Admission Home Health Aide Sep [facility] 2021 1:03pm Living Situation [facility] [place] 4:42pm Living Situation Apartment November 29, 2021 1:14pm Additional Data Assigned Sex Female Problems Active Problems Medical Problem Onset Date Status Numbness Active Bradycardia Active Cerebrovascular disease Active TIA (transient ischemic attack) Active Headache Active Weakness Active Chest pain Active HTN (hypertension) Active Obesity Active Medications Medication Status Dose Units Route Directions Qty Days St art Date End Date Instructions Cetirizine Active 10 MG PO DAILY [facility] 2021 12:00am Metoprolol Succinate Active 200 MG PO DAILY [facility] 2021 12:00am Chlorthalidon e Discontin ued 25 MG PO DAILY [facility] 2021 12:00am [facility] 2021 12:44a m Chlorthalidon e Active 75 MG PO DAILY [facility] 2021 12:00am Acetaminophen Active 500 MG PO DAILY [facility] 2021 12:00am Pantoprazole Active 40 MG PO DAILY [facility] 2021 12:00am Omeprazole Active 20 MG PO DAILY [facility] 2021 12:00am Verapamil Active 240 MG PO DAILY [facility] 2021 12:00am Fluticasone Propionate (Flovent Hfa) 220 mcg/actuation HFA aerosol inhaler Active 1 INH INH TWICE A DAY [facility] 2021 12:00am Albuterol Sulfate (Proair Hfa) 90 mcg/actuation HFA aerosol inhaler Active 1 INH INH EVERY 6 HOURS [facility] 2021 12:00am Lisinopril Active 40 MG PO DAILY [facility] 2021 12:00am Topiramate Active 100 MG PO DAILY [facility] 2021 12:00am Rosuvastatin Active 20 MG PO DAILY [facility] 2021 12:00am Bupropion Hcl Active 300 MG PO DAILY [facility] 2021 12:00am Cholecalcifer ol (Vitamin D3) (Vitamin D3) 125 mcg (5,000 unit) tablet Active 125 MCG PO DAILY [facility] 2021 12:00am Acetaminophen Active 650 MG PO THREE TIMES A DAY [facility] 2021 12:00am Clopidogrel Active 75 MG PO DAILY 30 Septe [facility] 2021 12:00am Procedures Procedure Date Performed Status EKG ED Electrocardiogram November 13, 2021 9:4 7pm completed XR chest 1V portable Maggie 5th, 2022 9:47pm completed CT angio head stroke November [...] 2021 10:48pm Added test [facility] [address] [place] [address] 15897 White Blood Count November 16, 2021 5:35am 11.5 X10 3/uL 4.5-11.0 [facility] [address] [place] [address] 48657 White Blood Count November 21, 2021 5:09pm 13.5 X10 3/uL 4.5-11.0 [facility] [address] [place] [address] 00818 White Blood Count November 29, 2021 1:11pm 9.6 X10 3/uL 4.5-11.0 [facility] [address] [place] [address] 67194 Red Blood Count November 16, 2021 5:35am 4.28 X10 6/uL 3.70-5.00 [facility] [address] [place] [address] 88447 Red Blood Count November 21, 2021 5:09pm 4.70 X10 6/uL 3.70-5.00 [facility] [address] [place] [address] 01601 Red Blood Count November 29, 2021 1:11pm 4.55 X10 6/uL 3.70-5.00 [facility] [address] [facility] [address] Hemoglobin November 16, 2021 5:35am 12.4 g/dl 11.0-16.0 [facility] [address] [facility] 34273 Hemoglobin November 21, 2021 5:09pm 13.9 g/dl 11.0-16.0 [facility] [address] [place] [address] 77186 Hemoglobin November 29, 2021 1:11pm 13.3 g/dl 11.0-16.0 [facility] [address] [place] [address] 67054 Hematocrit November 16, 2021 5:35am 39.7 % 33.5-45.0 [facility] [address] [place] [address] 75083 Hematocrit November 21, 2021 5:09pm 42.3 % 33.5-45.0 [facility] [address] [place] [address] 90737 Hematocrit November 29, 2021 1:11pm 41.1 % 33.5-45.0 [facility] [address] [place] [address] 02156 Mean Corpuscular Volume November 16, 2021 5:35am 92.8 fl 80.0-100.0 [facility] [address] [place] [address] 18408 Mean Corpuscular Volume November 21, 2021 5:09pm 90.0 fl 80.0-100.0 [facility] [address] [place] [address] 91934 Mean Corpuscular Volume November 29, 2021 1:11pm 90.3 fl 80.0-100.0 [facility] [address] [place] [address] 00920 Mean Corpuscular Hemoglobin November 16, 2021 5:35am 29.0 pg 27.0-34.0 [facility] [address] [place] [address] 42579 Mean Corpuscular Hemoglobin November 21, 2021 5:09pm 29.6 pg 27.0-34.0 [facility] [address] [place] [address] 59418 Mean Corpuscular Hemoglobin November 29, 2021 1:11pm 29.2 pg 27.0-34.0 [facility] [address] [place] [address] 75122 Mean Corpuscular Hemoglobin Concent November 16, 2021 5:35am 31.2 g/dl 31.0-36.0 [facility] [address] [place] [address] 15464 Mean Corpuscular Hemoglobin Concent November 21, 2021 5:09pm 32.9 g/dl 31.0-36.0 [facility] [address] [place] [address] 99540 Mean Corpuscular Hemoglobin Concent November 29, 2021 1:11pm 32.4 g/dl 31.0-36.0 [facility] [address] [place] [address] 93434 Red Cell Distribution Width November 16, 2021 5:35am 13.7 % 11.5-15.0 [facility] [address] [place] [address] 10896 Red Cell Distribution Width November 21, 2021 5:09pm 13.8 % 11.5-15.0 [facility] [address] [place] [address] 00490 Red Cell Distribution Width November 29, 2021 1:11pm 13.3 % 11.5-15.0 [facility] [address] [place] [address] 15639 Platelet Count November 16, 2021 5:35am 347 X10 3/uL 150-400 [facility] [address] [place] [address] 84621 Platelet Count November 21, 2021 5:09pm 404 X10 3/uL 150-400 [facility] [address] [place] [address] 98772 Platelet Count November 29, 2021 1:11pm 339 X10 3/uL 150-400 [facility] [address] [place] [address] 43291 Immature Granulocyte % (Auto) November 16, 2021 5:35am 1.5 % [facility] [address] [place] [address] 02078 Immature Granulocyte % (Auto) November 21, 2021 5:09pm 0.7 % [facility] [address] [place] [address] 43415 Immature Granulocyte % (Auto) November 29, 2021 1:11pm 0.6 % [facility] [address] [place] [address] 20429 Neutrophils (%) (Auto) November 16, 2021 5:35am 65.6 % [facility] [address] [facility] [address] Neutrophils (%) (Auto) November 21, 2021 5:09pm 70.0 % [facility] [address] [place] [address] Neutrophils (%) (Auto) November 29, 2021 1:11pm 73.9 % [facility] [address] [place] [address] 57690 Lymphocytes (%) (Auto) November 16, 2021 5:35am 26.4 % [facility] [address] [facility] [address] Lymphocytes (%) (Auto) November 21, 2021 5:09pm 21.6 % [facility] [address] [place] [address] 97301 Lymphocytes (%) (Auto) November 29, 2021 1:11pm 17.5 % [facility] [address] [place] [address] 72866 Monocytes (%) (Auto) November 16, 2021 5:35am 5.8 % [facility] [address] [facility] [address]89 Monocytes (%) (Auto) November 21, 2021 5:09pm 6.7 % [facility] [address] [place] [address] 41819 Monocytes (%) (Auto) November 29, 2021 1:11pm 6.6 % [facility] [address] [place] [address] 43022 Eosinophils (%) (Auto) November 16, 2021 5:35am 0.3 % [facility] [address] [place] [address] 01668 Eosinophils (%) (Auto) November 21, 2021 5:09pm 0.6 % [facility] [address] [place] [address] 55695 Eosinophils (%) (Auto) November 29, 2021 1:11pm 0.8 % [facility] [address] [place] [address] 08544 Basophils (%) (Auto) November 16, 2021 5:35am 0.4 % [facility] [address] [place] [address] 96851 Basophils (%) (Auto) November 21, 2021 5:09pm 0.4 % [facility] [address] [place] [address] 52530 Basophils (%) (Auto) November 29, 2021 1:11pm 0.6 % [facility] [address] [place] [address] 85657 Immature Granulocyte # (Auto) November 16, 2021 5:35am 0.17 X10 3/uL 0.00-0.09 [facility] [address] [place] [address] 23002 Immature Granulocyte # (Auto) November 21, 2021 5:09pm 0.10 X10 3/uL 0.00-0.09 [facility] [address] [place] [address] 61978 Immature Granulocyte # (Auto) November 29, 2021 1:11pm 0.06 X10 3/uL 0.00-0.09 [facility] [address] [place] [address] 15735 Neutrophils # (Auto) November 16, 2021 5:35am 7.5 X10 3/uL 1.5-7.8 [facility] [address] [place] [address] 59854 Neutrophils # (Auto) November 21, 2021 5:09pm 9.4 X10 3/uL 1.5-7.8 [facility] [address] [place] [address] 51332 Neutrophils # (Auto) November 29, 2021 1:11pm 7.1 X10 3/uL 1.5-7.8 [facility] [address] [place] [address] 15843 Lymphocytes # (Auto) November 16, 2021 5:35am 3.0 X10 3/uL 1.0-4.8 [facility] [address] [place] [address] 42732 Lymphocytes # (Auto) November 21, 2021 5:09pm 2.9 X10 3/uL 1.0-4.8 [facility] [address] [place] [address] 51761 Lymphocytes # (Auto) November 29, 2021 1:11pm 1.7 X10 3/uL 1.0-4.8 [facility] [address] [place] [address] 52540 Monocytes # (Auto) November 16, 2021 5:35am 0.7 X10 3/uL 0.0-0.8 [facility] [address] [place] [address] 03327 Monocytes # (Auto) November 21, 2021 5:09pm 0.9 X10 3/uL 0.0-0.8 [facility] [address] [place] [address] 57527 Monocytes # (Auto) November 29, 2021 1:11pm 0.6 X10 3/uL 0.0-0.8 [facility] [address] [place] [address] 86729 Eosinophils # (Auto) November 16, 2021 5:35am 0.0 X10 3/uL 0.0-0.5 [facility] [address] [place] [address] 40399 Eosinophils # (Auto) November 21, 2021 5:09pm 0.1 X10 3/uL 0.0-0.5 [facility] [address] [place] [address] 72941 Eosinophils # (Auto) November 29, 2021 1:11pm 0.1 X10 3/uL 0.0-0.5 [facility] [address] [place] [address] 51941 Basophils # (Auto) November 16, 2021 5:35am 0.1 X10 3/uL 0.0-0.2 [facility] [address] [place] [address] 75698 Basophils # (Auto) November 21, 2021 5:09pm 0.1 X10 3/uL 0.0-0.2 [facility] [address] [place] [address] 64927 Basophils # (Auto) November 29, 2021 1:11pm 0.1 X10 3/uL 0.0-0.2 [facility] [address] [place] [address] 41395 Hemoglobin A1c November 14, 2021 3:16pm 5.8 4.3-5.9 [facility] [address] [place] [address] 00759 Estimated Average Glucose (eAG) November 14, 2021 3:16pm 120 mg/dl [facility] [address] [place] [address] 70958 Nucleated Red Blood Cells % November 16, 2021 5:35am 0.0 /100 WBC 0.0-0.0 [facility] [address] [place] [address] [place] [address] Nucleated Red Blood Cells % November 21, 2021 5:09pm 0.0 /100 WBC 0.0-0.0 [facility] [address] [place] [address] 26788 Nucleated Red Blood Cells % November 29, 2021 1:11pm 0.0 /100 WBC 0.0-0.0 [facility] [address] [place] [address] 90157 Urine Color November 14, 2021 3:52am Yellow Yellow [facility] [address] [place] [address] 01081 Urine Color November 29, 2021 2:28pm Yellow Yellow [facility] [address] [place] [address] 83077 Urine Clarity November 14, 2021 3:52am Clear Clear [facility] [address] [place] [address] 86969 Urine Clarity November 29, 2021 2:28pm Clear Clear [facility] [address] [place] [address] 50269 Urine pH November 14, 2021 3:52am 5.0 5.0-8.0 [facility] [address] [place] [address] 72285 Urine pH November 29, 2021 2:28pm 6.5 5.0-8.0 [facility] [address] [place] [address] 25249 Urine Specific [place] November 14, 2021 3:52am >= 1.030 1.005-1.03 0 [facility] [address] [place] [address] 59511 Urine Specific [place] November 29, 2021 2:28pm <= 1.005 1.005-1.03 0 [facility] [address] [place] [address] 79361 Urine Blood November 14, 2021 3:52am Negative mg/dL Negative [facility] [address] [place] [address] 88663 Urine Blood November 29, 2021 2:28pm Negative mg/dL Negative [facility] [address] [place] [address] 13829 Urine Protein November 14, 2021 3:52am Negative mg/dL Negative [facility] [address] [place] [address] 73245 Urine Protein November 29, 2021 2:28pm Negative mg/dL Negative [facility] [address] [place] [address] 29443 Urine Glucose (UA) November 14, 2021 3:52am Negative mg/dl Negative [facility] [address] [place] [address] 31125 Urine Glucose (UA) November 29, 2021 2:28pm Negative mg/dl Negative [facility] [address] [place] [address] 81324 Urine Ketones November 14, 2021 3:52am Negative mg/dL Negative [facility] [address] [place] [address] 36279 Urine Ketones November 29, 2021 2:28pm Negative mg/dL Negative [facility] [address] [place] [address] 38130 Urine Nitrate November 14, 2021 3:52am Negative Negative [facility] [address] [place] [address] 15258 Urine Nitrate November 29, 2021 2:28pm Negative Negative [facility] [address] [place] [address] 73098 Urine Bilirubin November 14, 2021 3:52am Negative mg/dL Negative [facility] [address] [place] [address] 74878 Urine Bilirubin November 29, 2021 2:28pm Negative mg/dL Negative [facility] [address] [place] [address] 97220 Urine Urobilinogen November 14, 2021 3:52am 0.2 E.U./dL Normal [facility] [address] [place] [address] 93202 Urine Urobilinogen November 29, 2021 2:28pm 1.0 E.U./dL Normal [facility] [address] [place] [address] 78680 Urine Leukocyte Esterase November 14, 2021 3:52am Moderate mg/dL Negative [facility] [address] [place] [address] 85295 Urine Leukocyte Esterase November 29, 2021 2:28pm Negative mg/dL Negative [facility] [address] [place] [address] 18339 Urine RBC (Auto) November 14, 2021 3:52am None seen /HPF 0-2 [facility] [address] [place] [address] 83566 Urine WBC (Auto) November 14, 2021 3:52am 11-25 /HPF 0-5 [facility] [address] [place] [address] 34663 Urine Epithelial Cells (Auto) November 14, 2021 3:52am 6-10 /HPF 0-5 [facility] [address] [place] [address] 78368 Urine Casts (Auto) November 14, 2021 3:52am None seen /LPF None Seen [facility] [address] [place] [address] 79407 Urine Bacteria (Auto) November 14, 2021 3:52am Rare /HPF None Seen [facility] [address] [place] [address] 51837 Sodium Level November 16, 2021 5:35am 137 mmol/L 137-146 [facility] [address] [place] [address] 03918 Sodium Level November 21, 2021 5:09pm 135 mmol/L 137-146 [facility] [address] [place] [address] 75299 Sodium Level November 29, 2021 1:11pm 135 mmol/L 137-146 [facility] [address] [place] [address] 83664 Potassium Level November 16, 2021 5:35am 4.2 mmol/L 3.5-5.3 [facility] [address] [place] [address] 17788 Potassium Level November 21, 2021 5:09pm 4.7 mmol/L 3.5-5.3 [facility] [address] [place] [address] 37226 Potassium Level November 29, 2021 1:11pm 4.3 mmol/L 3.5-5.3 [facility] [address] [place] [address] 06410 Chloride Level November 16, 2021 5:35am 99 mmol/L 98-107 [facility] [address] [place] [address] 87819 Chloride Level November 21, 2021 5:09pm 101 mmol/L 98-107 [facility] [address] [place] [address] 28543 Chloride Level November 29, 2021 1:11pm 100 mmol/L 98-107 [facility] [address] [place] [address] 09696 Carbon Dioxide Level November 16, 2021 5:35am 27 mmol/L 23-32 [facility] [address] [place] [address] 40876 Carbon Dioxide Level November 21, 2021 5:09pm 22 mmol/L [facility] [address] [facility] 7[address]25 Carbon Dioxide Level November 29, 2021 1:11pm 22 mmol/L [facility] [address] [place] [address] 69364 Anion Gap November 16, 2021 5:35am 11 mmol/L 07-23 [facility] [address] [place] [address] 42656 Anion Gap November 21, 2021 5:09pm 12 mmol/L 07-23 [facility] [address] [place] [address] 90085 Anion Gap November 29, 2021 1:11pm 13 mmol/L 07-23 [facility] [address] [place] [address] 95683 Blood Urea Nitrogen November 16, 2021 5:35am 31 mg/dl 08-02 [facility] [address] [place] [address] 98941 Blood Urea Nitrogen November 21, 2021 5:09pm 49 mg/dl 08-02 [facility] [address] [place] [address] 08773 Blood Urea Nitrogen November 29, 2021 1:11pm 25 mg/dl 08-02 [facility] [address] [place] [address] 85798 Creatinine November 16, 2021 5:35am 1.2 mg/dL 0.5-1.1 [facility] [address] [place] [address] 56323 Creatinine November 21, 2021 5:09pm 1.3 mg/dL 0.5-1.1 [facility] [address] [place] [address] 40800 Creatinine November 29, 2021 1:11pm 0.9 mg/dL 0.5-1.1 [facility] [address] [place] [address] 90634 Estimated Creatinine Clearance November 16, 2021 5:35am 65.4 ml/min This value is calculated by Cockcroft Gault Equation using ideal body weight. This result is dependent on an accurate patient height and weight which is obtained from patients medical record. Louie Morales. and M.H. Santana. Prediction of creatinine clearance from serum creatinine. Nephron. 1976. 16(1):31-41. [facility] [address] [place] [address] 51331 Estimated Creatinine Clearance November 21, 2021 5:09pm 56.8 ml/min This value is calculated by Cockcroft Gault Equation using ideal body weight. This result is dependent on an accurate patient height and weight which is obtained from patients medical record. Cockcroft, D.W. and M.H. Gault. Prediction of creatinine clearance from serum creatinine. Nephron. 1975. 16(1):31-41. [facility] [address] [facility] [address] Estimated Creatinine Clearance November 29, 2021 1:11pm 74.8 ml/min This value is calculated by Cockcroft Gault Equation using ideal body weight. This result is dependent on an accurate patient height and weight which is obtained from patients medical record. Cockcroft, D.W. and M.H. Gault. Prediction of creatinine clearance from serum creatinine. Nephron. 1975. 16(1):31-41. [facility] [address] [facility] [address] Estimated GFR () November 16, 2021 5:35am 56 >60 [facility] [address] [place] [address] 29342 Estimated GFR () November 21, 2021 5:09pm 51 >60 [facility] [address] [place] [address] 59664 Estimated GFR () November 29, 2021 1:11pm 79 >60 [facility] [address] [place] [address] 08146 Estimated GFR (Non- November 16, 2021 5:35am 48 >60 [facility] [address] [place] [address] 48525 Estimated GFR (Non- November 21, 2021 5:09pm 44 >60 [facility] [address] [place] [address] 95067 Estimated GFR (Non- November 29, 2021 1:11pm 68 >60 [facility] [address] [place] [address] 71159 BUN/Creatinine Ratio November 16, 2021 5:35am 25.8 10.0-20.0 [facility] [address] [place] [address] 16058 BUN/Creatinine Ratio November 21, 2021 5:09pm 37.7 10.0-20.0 [facility] [address] [place] [address] 53886 BUN/Creatinine Ratio November 29, 2021 1:11pm 27.8 10.0-20.0 [facility] [address] [place] [address] 90052 Glucose Level November 16, 2021 5:35am 97 mg/dL 70-100 [facility] [address] [place] [address] 55862 Glucose Level November 21, 2021 5:09pm 114 mg/dL 70-100 [facility] [address] [place] [address] 42342 Glucose Level November 29, 2021 1:11pm 111 mg/dL 70-100 [facility] [address] [place] [address] 89318 Calcium Level November 16, 2021 5:35am 9.6 mg/dl 8.6-10.3 [facility] [address] [place] [address] 92125 Calcium Level November 21, 2021 5:09pm 10.0 mg/dl 8.6-10.3 [facility] [address] [place] [address] 53409 Calcium Level November 29, 2021 1:11pm 9.6 mg/dl 8.6-10.3 [facility] [address] [place] [address] 05111 Magnesium Level November 16, 2021 5:35am 2.5 mg/dL 1.8-2.5 [facility] [address] [place] [address] 05281 Total Bilirubin November 14, 2021 3:16pm < 0.2 mg/dl <1.1 [facility] [address] [place] [address] 35286 Aspartate Amino Transf (AST/SGOT) November 14, 2021 3:16pm 19 U/L 15-41 [facility] Lab [address] [place] [address] Alanine Aminotransferase (ALT/SGPT) November 14, 2021 3:16pm 12 U/L 14-54 [facility] [address] [place] [address]77 Troponin T High Sensitivity November 13, 2021 [...] for the inpatient setting). [facility] [address] [place] [address]235 Troponin T High Sensitivity November 21, 2021 [...] for the inpatient setting). [facility] [address] [facility] [address] Troponin T High Sensitivity November 29, 2021 [...] for the inpatient setting). [facility] [address] [place] [address]327 GP-Tgx-H-Type Natriuretic Peptide November 13, 2021 9:45pm 153 pg/mL 0-900 The half-life of plasma BNP is significantly increased in patients with compromised renal function. [facility] [address] [place] [address]77 Total Protein November 14, 2021 3:16pm 7.6 g/dL 6.4-8.3 [facility] [address] [place] [address] 9[address] Albumin November 14, 2021 3:16pm 3.5 g/dl 4.0-5.0 [facility] [address] [place] [address] 93591 Albumin/Globulin Ratio November 14, 2021 3:16pm 0.9 1.0-2.6 [facility] [address] [place] [address] 49594 Triglycerides Level November 14, 2021 3:16pm 179 mg/dL <150 151 - 199 mg/dL = Borderline High [facility] [address] [place] [address] 12793 Cholesterol Level November 14, 2021 3:16pm 189 mg/dl <199 <200 mg/dL = Desirable [facility] [address] [place] [address] 34759 LDL Cholesterol, Calculated November 14, 2021 3:16pm 117 mg/dl <129 [facility] [address] [place] [address] 93061 HDL Cholesterol November 14, 2021 3:16pm 36 mg/dL >40 < 40 mg/dl: Low HDL-cholestero l(major risk factor for CHD) >/= 60 mg/dl: High HDL-cholestero l(negative risk factor for CHD) HDL-cholestero l is affected by a number of factors, e.g., smoking, excercise, hormones, sex and age. [facility] [address] [place] [address] 21709 Cholesterol Ratio (LDL/HDL) November 14, 2021 3:16pm 3.3 LDL/HDL Interpretation : Ratio Men Women 1/2 Average 1.00 1.47 Average 3.55 3.22 2X Average 6.25 5.03 3X Average 7.99 6.14 [facility] [address] [place] [address] 11641 Cholesterol/HDL Ratio November 14, 2021 3:16pm 5.3 Cholesterol/HD L Interpretation : Ratio Men Women 1/2 Average 3.43 3.27 Average 4.97 4.44 2X Average 9.55 7.05 3X Average 23.39 11.04 [facility] [address] [place] [address] 38949 Alkaline Phosphatase November 14, 2021 3:16pm 47 U/L 35-104 [facility] [address] [place] [address] 13915 Thyroid Stimulating Hormone (Reflex November 14, 2021 3:16pm 1.95 uIU/mL 0.34-5.60 [facility] [address] [place] [address] 42334 Bedside Glucose November 15, 2021 8:35pm 133 mg/dl 70-100 NOTE: Any discrepancy between finger stick glucose result and patient's clinical presentation should be confirmed by the laboratory. [facility] [address] [place] [address] Bedside Glucose November 21, 2021 4:52pm 112 mg/dl 70-100 NOTE: Any discrepancy between finger stick glucose result and patient's clinical presentation should be confirmed by the laboratory. [facility] [address] [place] [address] 11685 Microbiology Results Procedure Source Result Collection Date/Time Result Date/Time Result Comment Performing Site Urine Culture Urine,Miri n Catch Mixed janis November 16, 2021 9:36am [facility] [address] [facility] [address] Diagnostic Imaging Reports Report Dictated Date/Time Dictated By Status Radiology Report November 13, 2021 10:32pm Italia Bales MD completed [facility] [address] [place] [address] Patient Name: Alysa Luevano Medical Record#: [id number] 1 Address: [address] [place] [address] City/State/Zip: [place] [address]: Rhonda Rodrigues MD Insurance: [facility] ([facility]) /Age/Sex: 1960/61/F Self Pay Admit/Reg Date: 11/13/[address]: Juvenal Fritz Location: ED.AH/ PCP: Agata Reza MD Date of Service: 11/13/21 Order (s): XR chest 1V portable CPT Code: 40262 Report Number: [id number] Reason for Exam: Chest Pain PROCEDURE INFORMATION: [...] By: Italia Bales MD 11/13/212231 TD/TT: 11/13/212231Tech: [id number] cc: CYNTHIA; ASHLEY* Agata Reza MD; Reyna Rodrigues MD Report Dictated Date/Time Dictated By Status Radiology Report November 13, 2021 11:42pm Italia Bales MD completed [facility] [address] [place] [address] Patient Name: Alysa Luevano Medical Record#: [id number] 1 Address: [address] [place] [address] City/State/Zip: [place] [address]: Rhonda Rodrigues MD Insurance: [facility] (Medicaid) /Age/Sex: 1960/61/F Self Pay Admit/Reg Date: 11/13/[address]: Juvenal Fritz Location: ED.AH/ PCP: Agata Reza MD Date of Service: 11/13/21 Order (s): CT head stroke wo contrast CPT Code: 18913 Report Number: [id number] Reason for Exam: R sided numbness, TIA [...] IMPRESSION: No acute intracranial abnormalities. ASSESSMENT: ASPECTS ([place] Stroke Program Early CT Score) is 10. This document has been electronically signed by [facility] Radiologist ITALIA BALES MD Dictated By: Italia Bales MD 11/13/212341 Signed By: Italia Bales MD 11/13/212342 TD/TT: 11/13/212341Tech: [id number] cc: CYNTHIA; ASHLEY* Agata Reza MD; Reyna Rodrigues MD Report Dictated Date/Time Dictated By Status Radiology Report November 13, 2021 11:43pm [place] [address] Patient Name: Alysa Luevano Medical Record#: [id number] 1 Address: [address] [place] [address] City/State/Zip: [place] [address]: Rhonda Rodrigues MD Insurance: [facility] (Medicaid) /Age/Sex: 1960/61/F Self Pay Admit/Reg Date: 11/13/[address]: Juvenal Fritz Location: ED.AH/ PCP: Agata Reza MD Date of Service: 11/13/21 Order (s): CT angio neck stroke CPT Code: 30154 Report Number: [id number] Reason for Exam: R sided numbness, TIA [...] BALES MD Dictated By: Italia Bales MD 11/13/21 234 Signed By: Italia Bales MD 11/13/21 2344 TD/TT: 11/13/21 234Tech: [id number] cc: CYNTHIA; ASHLEY* Agata Reza MD; Reyna Rodrigues MD Report Dictated Date/Time Dictated By Status Radiology Report November 14, 2021 12:24am Italia Bales MD completed [address] [address] Patient Name: Alysa Luevano Medical Record#: [id number] 1 Address: [address] [place] [address] City/State/Zip: [place] [address]: Rhonda Rodrigues MD Insurance: [facility] (Medicaid) /Age/Sex: 1960/61/F Self Pay Admit/Reg Date: 11/13/[address]: Juvenal Fritz Location: ED.AH/ PCP: Agata Reza MD Date of Service: 11/13/21 Order (s): CT angio head stroke CPT Code: 57389 Report Number: [id number] Reason for Exam: R sided numbness, TIA [...] MD Dictated By: Italia Bales MD 11/14/21 002 Signed By: Italia Bales MD 11/14/21 0024 TD/TT: 11/14/21 0024Tech: [id number] cc: CYNTHIA; ASHLEY* Agata Reza MD; Reyna Rodrigues MD Report Dictated Date/Time Dictated By Status Echocardiogram November 14, 2021 8:01am [place] [address] Patient Name: Alysa Luevano Medical Record#: [id number] 1 Address: [address] [place] [address] City/State/Zip: [place] [address]: Chad Naqvi MD Insurance: [facility] (Medicaid) /Age/Sex: 1960/61/F Self Pay Admit/Reg Date: 11/14/[address]: Demarcus Grigsby MD [id number] PCP: Agata Reza MD Date of Service: 11/14/21 Order (s): Echo TTE comp w/dop w contrast CPT Code: C8929 Report Number: [id number] Reason for Exam: tia Transthoracic Echocardiography Report (TTE) Demographics Patient Name Bassem Watt Gender Female MR Number [id number] Date of 1960 Age 61 year(s) Room Number AN7159 Height 66 inches Date of study 11/14/2021 Weight 280.01 pounds Referring BSA 2.31 m^2 Interpreting MD Jeniffer Guardado MD BMI 45.19 kg/m^2 Fellow Senior Medical Writer Dia 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 Mild mitral regurgitation. No aortic stenosis. No aortic regurgitation. The aortic valve is not well visualized. Akdr-wc-whgbockk tricuspid regurgitation. Pulmonary artery systolic pressure is [...] valve is not well visualized. TRICUSPID VALVE: Cxxy-tl-cmsusxfg tricuspid regurgitation. Pulmonary artery systolic pressure is [...] By: Jeniffer Guardado MD 11/14/21 1641 TD/TT: 11/14/21 08Tech: [facility] cc: TESSIE; KRISTIN; ASHLEY* Demarcus Grigsby MD; Agata Reza MD; Jeniffer Guardado MD Report Dictated Date/Time Dictated By Status Radiology Report November 15, 2021 9:36am Jose Alberto Bangura MD completed [address] [address] Patient Name: Alysa Luevano Medical Record#: [id number] 1 Address: [address] [place] [address] City/State/Zip: [place] [address]: Chad Naqvi MD Insurance: [facility] (Medicaid) /Age/Sex: 1960/61/F Self Pay Admit/Reg Date: 11/14/[address]: Demarcus Grigsby MD Location: [id number] PCP: Agata Reza MD Date of Service: 11/15/21 Order (s): MR head/brain wo contrast CPT Code: 07570 Report Number: [id number] Reason for Exam: tia ADDENDUM Impression to Dr. Chalo Naqvi on November 15, 2021 at 12:32 PM by [facility] PRA. Addendum Dictated By: Jose Alberto Bangura [...] By: Jose Alberto Bangura MD 11/15/2147 TD/TT: 11/15/21935Tech: [id number] cc: TESSIE; LUIS RAMIREZ* Demarcus Grigsby MD; Agata Reza MD; Taina Naqvi MD Report Dictated Date/Time Dictated By Status Electrocardiogram November 15, 2021 7:22pm Jeniffer Guardado MD completed [address] [address] Patient Name: Luevano,Alysa Medical Record#: [id number] 1 Address: [address] [place] [address] [facility]/State/Zip: [place] [address]: Chad Naqvi MD Insurance: [facility] (Med[facility]) /Age/Sex: 1960/61/F Self Pay Admit/Reg Date: 11/15/[address]: Juvenal Dubon [id number] PCP: Agata Reza MD Date of Service: 11/15/21 Order (s): EKG Electrocardiogram CPT Code: 02911 Report Number: [id number] Reason for Exam: PAIN JUNCTIONAL BRADYCARDIA with PACs Comparison Summary: No serial comparison made Summary: Abnormal ECG Dictated By: Jeniffer Guardado MD 11/15/211921 Signed By: Jeniffer Guardado MD 11/16/212047 TD/TT: 11/15/211921Tech: [email or web address] cc: LUIS RAMIREZ* Agata Reza MD; Taina Naqvi MD Report Dictated Date/Time Dictated By Status Radiology Report November 21, 2021 6:30pm [place] [address] Patient Name: Alysa Luevano Medical Record#: [id number] 1 Address: [address] [place] [address] City/State/Zip: [place] [address]: Haja Alcantara MD Insurance: [facility] (Med[facility]) /Age/Sex: 1960/61/F Self Pay Admit/Reg Date: 11/21/[address]: Carroll [facility]ellon [facility] P[facility]: Agata Reza MD Date of Service: 11/21/21 Order (s): CT head/brain wo contrast CPT Code: 31001 Report Number: [id number] Reason for Exam: headache, recent CVa, right [...] large area of infarction. There is normal orbin-white matter differentiation. There are moderately prominent sulci [...] Status Radiology Report November 29, 2021 1:29pm Geo Gamble MD completed [facility] [address] [place] [address] Patient Name: Alysa Luevano Medical Record#: [id number] 1 Address: [address] [place] [address] City/State/Zip: [place] [address]: Rhonda Rodrigues MD Insurance: [employer] (Medicaid) /Age/Sex: 1960/61/F Self Pay Admit/Reg Date: 11/29/[address]: Juvenal Fritz Location: ED.AH/ PCP: Agata Reza MD Date of Service: 11/29/21 Order (s): XR chest 1V portable CPT Code: 89294 Report Number: [id number] Reason for Exam: chest pain PROCEDURE: XR [...] Gamble MD 11/29/21 1334 TD/TT: 11/29/21 1329Tech: [id number] cc: ANTHONY RAMIREZ* Agata Reza MD; Reyna Rodrigues MD Report Dictated Date/Time Dictated By Status Radiology Report November 29, 2021 1:46pm Amaury cuba MD completed [facility] [address] [place] [address] Patient Name: Alysa Luevano Medical Record#: [id number] 1 Address: [address] [place] [address] City/State/Zip: [place] [address]: Rhonda Rodrigues MD Insurance: [facility] et (Medicaid) /Age/Sex: 1960/61/F Self Pay Admit/Reg Date: 11/29/[address]: Juvenal Fritz Location: ED.AH/ PCP: Agata Reza MD Date of Service: 11/29/21 Order (s): CT head/brain wo contrast CPT Code: 42926 Report Number: [id number] Reason for Exam: known stroke, ?worsening r [...] Simpson MD 11/29/21 1401 TD/TT: 11/29/21 1346Tech: [id number] cc: CYNTHIA; ASHLEY* Agata Reza MD; Reyna Rodrigues MD Vital [...] 21, 2021 7:51pm Respiratory rate 18 /min -November 092021 7:51pm Oxygen saturation by Pulse oximetry [...] November 102021 1:06pm Heart Rate 82 /min 60-90 November 29, 2021 4:20pm Respiratory rate 19 /min -November 102021 4:20pm Oxygen saturation by Pulse oximetry 99 % 95-100 November 29, 2021 4:20pm BP Systolic 105 mm[Hg] 90-140 November 29, 2021 4:20pm BP Diastolic 54 mm[Hg] 60-90 November 29, 2021 4:20pm BMI (Body Mass Index) 47.2 kg/m2 2021 1:06pm Advance Directives Advance Directive Response Recorded Date/ Time Pt has Medical Orders for Li fe Sustaining Tx Form (MOLST)? No November 14, 2021 10:59am Advance Directives No November 10:59am Health Care Proxy No November 14, 2021 10:59am Advance Directives No November 4:18pm Health Care Proxy No November 4:18pm Advance Directives No November 12:53pm Health Care Proxy No November 12:53pm Insurance Providers Guarantor Alysa Luevano Address [address] [place] [address] Contact Info. Home Phone: Payer Policy Id Coverage Id Subscriber's Name Subscriber Id Effective Date Expiration Date [facility] (Medicaid) [id number] Alysa Luevano [id number] Encounters Encounter Location(s) Arrival/Admit Date Discharge/Depart Date Provider(s) Discharged Inpatient [facility] November 15, 2021 10:43am November 17, 2021 12:23pm Taina Naqvi MD Departed Emergency [facility] November 21, 2021 4:16pm November 21, 2021 8:18pm null Departed Emergency [facility] November 29, 2021 12:53pm November 29, 2021 5:56pm null Recent Diagnosis Onset Date Bradycardia Cerebrovascular disease Numbness TIA (transient ischemic attack) Weakness HTN (hypertension) Obesity Functional Status Observation Response Date Recorded Assistive Devices Cane November 14, 2021 10:59am Ambulation Distance November 11:08am Ambulation Tolerance Fair November 162021 11:06am Ambulation Tolerance Fair November 172021 11:08am Bathing Type Bath in a Bag with Setup [facility] 2021 11:06am Date of Last Bowel Movement 11/15/21 [facility] 2021 1:20am Oral Care Mouth Rinse November 16 8:30pm Toileting Ability Maximum Assistance November 172021 10:40am Mental Status Observation Response Date Recorded Arousable To Name November 17 11:41am Patient Behavior Appropriate November 17, 2021 11:41am Cooperative November 17 11:41am Comprehension Ability Understands Concepts [facility] 2021 11:41am Level of Consciousness Awake November [...] Phone: [address] [facility] [address] Agata Reza MD Work Phone: [address] [address] Agata Reza MD Work Phone: [address] [address] Agata Reza MD Work Phone: [address] [address] Future Procedures Procedure Name Scheduled Date Hospital [...] 2021 3:09am Provider Order to Nurse November 14 022 10:30am Continuous Pulse Oximetry November 13, [...] Goals You were seen in the emergen cy department for symptoms related here known stroke. [...] hospital for any new or worsening symptoms. Absence of falls Including: - Early & [...]
--- OUTSIDE RECORDS SUMMARY | 2022-08-06 05:06 | XMS_ITS | Continuity of Care Document ---
Author Name Unknown Address [address] [place] [address] Phone Organization [facility] Address [address] [place] [address] Phone Care Team Providers Care First Aid Officer Name Role Phone MD Agata Reza Primary Care Provider [phone] KARINA Nelson Attending Provider [phone] Chief Complaint and Reason for Visit Chief Complaint CVA RIGHT SIDED WEAK NESS / GAIT [I63.011] Allergies, Adverse Reactions, Alerts Allergen Type Severity Reaction Last Updated Verified Status aspirin Allergy Unknown May 16 8:40pm Yes Active Sulfa (Sulfonamide Antibiotics) Allergy Unknown May 16, 2022 8:40pm Yes Active Social History Smoking Status Unknown if ever smoked Observation Status Date of Observation Not May 18, 2022 Observation Status Observation Response Date of Response Living Situation Apartment November 15, 2021 1:03pm Services Prior to Admission Home Health Aide [facility]2021 1:03pm Living Situation [facility] 2021 4:42pm Living Situation Apartment November 29, 2021 1:14pm Living Situation Apartment December 01, 2021 2:58pm Living Situation Private Home April 03, 2 023 12:50pm Services Prior to Admission Jonathon mireles 2022 4:34pm Is Anyone Dependent on your Care? No January 29, 2022 3:14pm Living Situation Apartment January 29, 2022 3:14pm Living Situation Apartment May 17, 2022 12:10pm Services Prior to Admission Home Health Aide Stephanie 2022 3:18pm Living Situation Apartment July 05 11:16am Lives With Spouse July 05, 2022 11:16am Family July 05, 2022 11:16am Additional Data Assigned Sex Female Problems Active [...] Cetirizine Discontin ued 10 MG PO DAILY [facility] 2021 12:00am Maruar y 2022 5:22pm Metoprolol Succinate Discontin ued 200 MG PO DAILY [facility] 2021 12:00am Maruar y 2022 5:22pm Chlorthalidon e Discontin ued 25 MG PO DAILY [facility] 2021 12:00am Septem inessa 2021 12:44a m Chlorthalidon e Discontin ued 75 MG PO DAILY [facility] 2021 12:00am Maruar y 2022 5:20pm Acetaminophen Active 500 MG PO TWICE A DAY [facility] 2021 12:00am Pantoprazole Discontin ued 40 MG PO DAILY [facility] 2021 12:00am Maruar y 2022 5:24pm Omeprazole Active 20 MG PO DAILY [facility] 2021 12:00am Verapamil Discontin ued 240 MG PO DAILY [facility] 2021 12:00am Januar y 2022 11:28a m Fluticasone Propionate (Flovent Hfa) 220 mcg/actuation HFA aerosol inhaler Active 1 INH INH DAILY [facility] 2021 12:00am Albuterol Sulfate (Proair Hfa) 90 mcg/actuation HFA aerosol inhaler Active 1 INH INH EVERY 6 HOURS [facility] 2021 12:00am Lisinopril Active 40 MG PO DAILY [facility] 2021 12:00am Topiramate Discontin ued 100 MG PO DAILY [facility] 2021 12:00am Januar y rd, 2023 5:24pm Rosuvastatin Discontin ued 20 MG PO DAILY [facility] 2021 12:00am Marua2022 5:53pm Bupropion Hcl Discontin ued 300 MG PO DAILY [facility] 2021 12:00am Maruar y 2022 5:23pm Cholecalcifer ol (Vitamin D3) (Vitamin D3) 125 mcg (5,000 unit) tablet Active 125 MCG PO DAILY [facility] 2021 12:00am Acetaminophen Discontin ued 650 MG PO THREE TIMES A DAY [facility] 2021 12:00am Marua y 2022 5:22pm Clopidogrel Active 75 MG PO DAILY [facility] 2021 12:00am Atorvastatin Discontin ued 40 MG PO DAILY April 02, 2022 1:00am May 17, 2022 1:08pm Chlorthalidon e Discontin ued 25 MG PO DAILY April 02, 2022 1:00am 2022 11:29a m Rosuvastatin Discontin ued 20 MG PO DAILY April 02, 2022 1:00am May 19, 2022 12:32p m Meclizine Active 12.5 MG PO THREE TIME S A DAY April 04, 2022 1:00am Amoxicillin-P ot Clavulanate Discontin ued 1 TAB PO EVERY 12 HOURS April 04, 2022 1:00am May 16, 2022 9:16pm Chlorthalidon e Discontin ued 50 MG PO DAILY 0 April 04, 2022 11:29am May 16, 2022 9:20pm Loratadine Active 10 MG PO DAILY May 16, 2022 1:00am Chlorthalidon e Active 25 MG PO DAILY May 16, 2022 9:19pm Dunmor-3 Fatty Acids-Fish Oil Active 1 CAP PO DAILY May 16, 2022 1:00am Atorvastatin (Lipitor) 40 mg Tablet Active 40 MG PO DAILY May 19, 2022 1:00am Advance Directives Advance Directive Response Recorded Date/ Time Advance Directives No November 10:59am Health Care Proxy No November 14, 2021 10:59am Advance Directives No November 4:18pm Health Care Proxy No November 4:18pm Advance Directives No November 12:53pm Health Care Proxy No November 12:53pm Advance Directives No November 2:41pm Health Care Proxy No November 2:41pm Advance Directives No April 03, 2022 4:34pm Health Care Proxy No April 03, 2022 4:34pm Advance Directives No January 1:23pm Health Care Proxy No January 29, 2022 1:23pm Advance Directives No May 17 3:18pm Health Care Proxy No May 17 3:18pm Pt has Medical Orders for Li fe Sustaining Tx Form (MOLST)? No May 17, 2022 3:18pm Insurance Providers Guarantor Alysa Luevano Address [address] [place] [address] Contact Info. Home Phone: Payer Policy Id Coverage Id Subscriber's Name Subscriber Id Effective Date Expiration Date [facility] [address] (Medicaid) [id number] Alysa Luevano [id number] Encounters Encounter Location(s) Arrival/Admit Date Discharge/Depart Date Provider(s) Discharged Recurring [facility] Op July 05, 2022 2:00pm July 08, 2022 11:59pm Massiel Nelson NP Functional Status Observation Response Date Recorded Ambulation Distance 100 July 03, 2022 1:47pm Ambulation Tolerance Fair July 03, 2022 1:47pm Plan of Treatment Future Tests Future scheduled test information is unavailable Pending Tests Test Name Ordered Date Scheduled Date VTE Risk Assessment Medical November 14, 2021 3:09am November 14, 2021 3:09am VTE Risk Assessment Medical May 16, 2022 9:17 pm May 16, 2022 9:17pm Future Visits Future appointment information is unavailable Referrals to Other Providers Reason for Referral Referral Start Date Provider Provider Contact Information Provider Address 6 months Rachna Norris MD Work Phone: [address] [place] [address] Agata Reza MD Work Phone: [address] [place] [phone] Agata Reza MD Work Phone: [address] [place] [address] [facility] [address] Agata Reza MD Work Phone: [address] [place] [address] [facility] [address] Agata Reza MD Work Phone: [address] [place] [address] [facility] [address] Case Jameel Donahuejuliana will call patient with appointment Agata Reza MD Work Phone: [address] [place] [address] [facility] [address] Agata Reza MD Work Phone: [address] [place] [address] [facility] [id number] Left message at office Agata Reza MD Work Phone: [address] [place] [address] [facility] [address] Future Procedures Procedure Name Ordered Date Scheduled Date Hospital Level of Care November 15, 2021 10:43 am November 15, 2021 10:43am Occupational Therapy Consult November 14, 2021 9:57am November 14, 2021 9:57am Physical Therapy Consult November 14, 2021 3:0 9am November 14, 2021 3:09am Activity November 14, 2021 3:09am [facility] 2021 3:10am Discharge November 16, 2021 3:50pm [facility] 2021 3:50pm Discharge November 17, 2021 10:43am [facility] ED Transfer of Care to Adm Physician November 14, 2021 12:33am November 14, 2021 12:33a m Elevate Head of Bed November 13, 2021 10:32pm November 13, 2021 10:32pm Saline Lock Insert/Manage November 13, 2021 9: 47pm November 13, 2021 9:47pm Neurology Consult November 14, 2021 3:09am Sep tem2021 3:09am Oxygen Initiate/Maintain November 13, 2021 10: 32pm November 13, 2021 10:32pm Oxygen Initiate/Maintain November 13, 2021 9:4 7pm November 13, 2021 9:47pm Patient Preference for Pain Management November 14, 2021 3:09am November 14, 2021 3:09am Provider Order to Nurse November 14, 2021 10:3 0am November 14, 2021 10:30am Continuous Pulse Oximetry November 13, 2021 9: 47pm November 13, 2021 9:47pm Continuous Pulse Oximetry November 13, 2021 10 :32pm November 13, 2021 10:32pm Sequential Compression Device November 14 3:09am November 14, 2021 3:09am Vascular Surgery Consult November 14, 2021 2:3 3pm November 14, 2021 2:33pm Saline Lock Insert/Manage November 21, 2021 4 :46pm November 21, 2021 4:46pm Oxygen Initiate/Maintain November 21, 2021 4: 46pm November 21, 2021 4:46pm Continuous Pulse Oximetry November 21, 2021 4 :46pm November 21, 2021 4:46pm Hospital Level of Care April 03, 2022 4:10pm April 03, 2022 4:10pm Occupational Therapy Consult April 02, 2022 9:20pm April 02, 2022 9:21pm Physical Therapy Consult April 02, 2022 9:20 pm April 02, 2022 9:21pm Activity April 02, 2022 4:30pm Januar y 2022 4:30pm Discharge April 04, 2022 11:30am Janua ry 2022 11:30am ED Transfer of Care to Adm Physician April 02, 2022 4:27pm April 02, 2022 4:27pm Peripheral IV Insert/Manage April 02, 2022 4 :30pm April 02, 2022 4:30pm Neurology Consult April 02, 2022 9:20pm Major mireles 2022 9:21pm Patient Preference for Pain Management April 02, 2022 4:30pm April 02, 2022 4:30pm Sequential Compression Device April 02, 2022 4:30pm April 02, 2022 4:30pm Spiritual Care Consult April 03, 2022 12:16a m April 03, 2022 12:16am Blood Bank Hold May 16, 2022 7:32pm May 7:32pm Hospital Level of Care May 16, 2022 9:17pm [facility] 2022 9:17pm Occupational Therapy Consult May 16, 2022 9:1 7pm May 16, 2022 9:17pm Physical Therapy Consult May 16, 2022 9:17pm May 16, 2022 9:17pm Speech Therapy Consult May 16, 2022 9:17pm [facility] 2022 9:17pm Activity May 16, 2022 9:17pm May 9:18pm Aspiration Precautions May 16, 2022 7:32pm [facility] 2022 7:32pm Discharge May 18, 2022 11:27am May 092022 11:27am ED Transfer of Care to Adm Physician May 16, 2022 8:48pm May 16, 2022 8:48pm Elevate Head of Bed May 16, 2022 7:32pm May 16, 2022 7:32pm Elevate Head of Bed May 16, 2022 9:17pm May 16, 2022 9:17pm Neurology Consult May 16, 2022 9:17pm May 162022 9:17pm Patient Preference for Pain Management May 16, 2022 9:17pm May 16, 2022 9:17pm Continuous Pulse Oximetry May 16, 2022 7:32pm May 16, 2022 7:32pm Sequential Compression Device May 16, 2022 9: 17pm May 16, 2022 9:17pm Vascular Surgery Consult May 17, 2022 1:38pm May 17, 2022 1:39pm Future Medications Future medication information is unavailable Patient Instructions Self-Care for Headaches ED Thrombophlebitis, Superfi cial Amoxicillin/Clavulanate Oral Tablet 875 mg/125 mg Meclizine Oral Tablet 12.5 mg Vertigo Inner Ear Problems Vertigo Medicine Tx Vertigo Staying Safe Discharge Instructions for Laura brown
--- OUTSIDE RECORDS SUMMARY | 2022-08-06 05:06 | XMS_ITS | Continuity of Care Document ---
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, Twan Other Provider Unavailable MD Taina Naqvi Attending Provider MD Ken Norrisim Other Provider MD Servando Alcantarauel Sheri Emergency Provider Chief Complaint and Reason for Visit Chief Complaint TIA Reason for Visit Bradycardia Cerebrovascular disease Numbness TIA (transient ischemic attack) Weakness HTN (hypertension) Obesity Allergies, Adverse Reactions, Alerts Allergen Type Severity Reaction Last Updated Verified Status aspirin Allergy Unknown November 4:29pm Yes Active Sulfa (Sulfonamide Antibiotics) Allergy Unknown November 21, 2021 4:29pm Yes Active Social History Smoking Status Unknown if ever smoked Observation Status Observation Response Date of Response Lives With Spouse November 15 1:03pm Living Situation Apartment November 15, 2021 1:03pm Services Prior to Admission Home Health Aide Sep banner 2021 1:03pm Living Situation [facility] 2021 4:42pm Additional Data Assigned Sex Female Problems Active Problems Medical Problem Onset Date Status Numbness Active Bradycardia Active Cerebrovascular disease Active TIA (transient ischemic attack) Active Weakness Active HTN (hypertension) Active Obesity Active Medications Medication Status Dose Units Route Directions Qty Days St art Date End Date Instructions Cetirizine Active 10 MG PO DAILY [facility] 2021 12:00am Metoprolol Succinate Active 200 MG PO DAILY [facility] 2021 12:00am Chlorthalidon e Discontin ued 25 MG PO DAILY [facility] er 2021 12:00am [facility] 2021 12:44a m Chlorthalidon e Active 75 MG PO DAILY [facility] 2021 12:00am Acetaminophen Active 500 MG PO DAILY [facility] 2021 12:00am Pantoprazole Active 40 MG PO DAILY [facility] 2021 12:00am Omeprazole Active 20 MG PO DAILY [facility] 2021 12:00am Verapamil Active 240 MG PO DAILY [facility] 2021 12:00am Fluticasone Propionate (Flovent Hfa) 220 mcg/actuation HFA aerosol inhaler Active 1 INH INH TWICE A DAY [facility] 2021 12:00am Albuterol Sulfate (Proair Hfa) 90 mcg/actuation HFA aerosol inhaler Active 1 INH INH EVERY 6 HOURS [facility] 2021 12:00am Lisinopril Active 40 MG PO DAILY [facility] 2021 12:00am Topiramate Active 100 MG PO DAILY [facility] 2021 12:00am Rosuvastatin Active 20 MG PO DAILY [facility] 2021 12:00am Bupropion Hcl Active 300 MG PO DAILY [facility] 2021 12:00am Cholecalcifer ol (Vitamin D3) (Vitamin D3) 125 mcg (5,000 unit) tablet Active 125 MCG PO DAILY [facility] 2021 12:00am Acetaminophen Active 650 MG PO THREE TIMES A DAY [facility] 2021 12:00am Clopidogrel Active 75 MG PO DAILY 30 Sept [facility] 2021 12:00am Procedures Procedure Date [...] ED Electrocardiogram November 21, 2021 4: 46pm active CT head/brain wo contrast November 21, 2021 5 :14pm completed Relevant Diagnostic Tests and/or Laboratory Data Laboratory Results Test Date/Time Result Interpretation Reference Range Result Comment Performing Site Add-On Test Request November 13, 2021 10:48pm Added test [facility] [address] [place] [address] 86386 White Blood Count November 16, 2021 5:35am 11.5 X10 3/uL 4.5-11.0 [facility] [address] [place] [address] 73757 White Blood Count November 21, 2021 5:09pm 13.5 X10 3/uL 4.5-11.0 [facility] [address] [place] [address] 29644 Red Blood Count November 16, 2021 5:35am 4.28 X10 6/uL 3.70-5.00 [facility] [address] [place] [address] 42985 Red Blood Count November 21, 2021 5:09pm 4.70 X10 6/uL 3.70-5.00 [facility] [address] [place] [address] 90447 Hemoglobin November 16, 2021 5:35am 12.4 g/dl 11.0-16.0 [facility] [address] [place] [address] 90900 Hemoglobin November 21, 2021 5:09pm 13.9 g/dl 11.0-16.0 [facility] [address] [place] [address] 11927 Hematocrit November 16, 2021 5:35am 39.7 % 33.5-45.0 [facility] [address] [place] [address] 13731 Hematocrit November 21, 2021 5:09pm 42.3 % 33.5-45.0 [facility] [address] [facility] 96499 Mean Corpuscular Volume November 16, 2021 5:35am 92.8 fl 80.0-100.0 [facility] [address] [facility] 87778 Mean Corpuscular Volume November 21, 2021 5:09pm 90.0 fl 80.0-100.0 [facility] [address] [place] [address] 75815 Mean Corpuscular Hemoglobin November 16, 2021 5:35am 29.0 pg 27.0-34.0 [facility] [address] [place] [address] 46620 Mean Corpuscular Hemoglobin November 21, 2021 5:09pm 29.6 pg 27.0-34.0 [facility] [address] [place] [address] 94414 Mean Corpuscular Hemoglobin Concent November 16, 2021 5:35am 31.2 g/dl 31.0-36.0 [facility] [address] [place] [address] 99186 Mean Corpuscular Hemoglobin Concent November 21, 2021 5:09pm 32.9 g/dl 31.0-36.0 [facility] [address] [place] [address] 88761 Red Cell Distribution Width November 16, 2021 5:35am 13.7 % 11.5-15.0 [facility] [address] [place] [address] 24516 Red Cell Distribution Width November 21, 2021 5:09pm 13.8 % 11.5-15.0 [facility] [address] [place] [address] 54443 Platelet Count November 16, 2021 5:35am 347 X10 3/uL 150-400 [facility] [address] [place] [address] 06342 Platelet Count November 21, 2021 5:09pm 404 X10 3/uL 150-400 [facility] [address] [place] [address] 66698 Immature Granulocyte % (Auto) November 16, 2021 5:35am 1.5 % [facility] [address] [place] [address] 42211 Immature Granulocyte % (Auto) November 21, 2021 5:09pm 0.7 % [facility] [address] [place] [address] 38096 Neutrophils (%) (Auto) November 16, 2021 5:35am 65.6 % [facility] [address] [place] [address] 09081 Neutrophils (%) (Auto) November 21, 2021 5:09pm 70.0 % [facility] [address] [place] [address] 18915 Lymphocytes (%) (Auto) November 16, 2021 5:35am 26.4 % [facility] [address] [place] [address] 41642 Lymphocytes (%) (Auto) November 21, 2021 5:09pm 21.6 % [facility] [address] [place] [address] 39073 Monocytes (%) (Auto) November 16, 2021 5:35am 5.8 % [facility] [address] [place] [address] 67768 Monocytes (%) (Auto) November 21, 2021 5:09pm 6.7 % [facility] [address] [place] [address] 84303 Eosinophils (%) (Auto) November 16, 2021 5:35am 0.3 % [facility] [address] [place] [address] 78270 Eosinophils (%) (Auto) November 21, 2021 5:09pm 0.6 % [facility] [address] [place] [address] 58196 Basophils (%) (Auto) November 16, 2021 5:35am 0.4 % [facility] [address] [place] [address] 46133 Basophils (%) (Auto) November 21, 2021 5:09pm 0.4 % [facility] [address] [place] [address] 86762 Immature Granulocyte # (Auto) November 16, 2021 5:35am 0.17 X10 3/uL 0.00-0.09 [facility] [address] [place] [address] 33338 Immature Granulocyte # (Auto) November 21, 2021 5:09pm 0.10 X10 3/uL 0.00-0.09 [facility] [address] [place] [address] 17624 Neutrophils # (Auto) November 16, 2021 5:35am 7.5 X10 3/uL 1.5-7.8 [facility] [address] [place] [address] 60843 Neutrophils # (Auto) November 21, 2021 5:09pm 9.4 X10 3/uL 1.5-7.8 [facility] [address] [place] [address] 65845 Lymphocytes # (Auto) November 16, 2021 5:35am 3.0 X10 3/uL 1.0-4.8 [facility] [address] [place] [address] 35217 Lymphocytes # (Auto) November 21, 2021 5:09pm 2.9 X10 3/uL 1.0-4.8 [facility] [address] [place] [address] 42112 Monocytes # (Auto) November 16, 2021 5:35am 0.7 X10 3/uL 0.0-0.8 [facility] [address] [place] [address] 97069 Monocytes # (Auto) November 21, 2021 5:09pm 0.9 X10 3/uL 0.0-0.8 [facility] [address] [place] [address] 90693 Eosinophils # (Auto) November 16, 2021 5:35am 0.0 X10 3/uL 0.0-0.5 [facility] [address] [place] [address] 84041 Eosinophils # (Auto) November 21, 2021 5:09pm 0.1 X10 3/uL 0.0-0.5 [facility] [address] [place] [address] 01407 Basophils # (Auto) November 16, 2021 5:35am 0.1 X10 3/uL 0.0-0.2 [facility] [address] [place] [address] 93343 Basophils # (Auto) November 21, 2021 5:09pm 0.1 X10 3/uL 0.0-0.2 [facility] [address] [place] [address] 27947 Hemoglobin A1c November 14, 2021 3:16pm 5.8 4.3-5.9 [facility] [address] [place] [address] 32434 Estimated Average Glucose (eAG) November 14, 2021 3:16pm 120 mg/dl [facility] [address] [place] [address] 41060 Nucleated Red Blood Cells % November 16, 2021 5:35am 0.0 /100 WBC 0.0-0.0 [facility] [address] [place] [address] 75628 Nucleated Red Blood Cells % November 21, 2021 5:09pm 0.0 /100 WBC 0.0-0.0 [facility] [address] [place] [address] 52527 Urine Color November 14, 2021 3:52am Yellow Yellow [facility] [address] [place] [address] 81728 Urine Clarity November 14, 2021 3:52am Clear Clear [facility] [address] [place] [address] 33097 Urine pH November 14, 2021 3:52am 5.0 5.0-8.0 [facility] [address] [place] [address] 15077 Urine Specific Sayner November 14, 2021 3:52am >= 1.030 1.005-1.03 0 [facility] [address] [place] [address] 92673 Urine Blood November 14, 2021 3:52am Negative mg/dL Negative [facility] [address] [place] [address] 25010 Urine Protein November 14, 2021 3:52am Negative mg/dL Negative [facility] [address] [place] [address] 45698 Urine Glucose (UA) November 14, 2021 3:52am Negative mg/dl Negative [facility] [address] [place] [address] 44926 Urine Ketones November 14, 2021 3:52am Negative mg/dL Negative [facility] [address] [place] [address] 14746 Urine Nitrate November 14, 2021 3:52am Negative Negative [facility] [address] [place] [address] 84677 Urine Bilirubin November 14, 2021 3:52am Negative mg/dL Negative [facility] [address] [place] [address] 66169 Urine Urobilinogen November 14, 2021 3:52am 0.2 E.U./dL Normal [facility] [address] [place] [address] 23869 Urine Leukocyte Esterase November 14, 2021 3:52am Moderate mg/dL Negative [facility] [address] [place] [address] 67698 Urine RBC (Auto) November 14, 2021 3:52am None seen /HPF 0-2 [facility] [address] [place] [address] 65002 Urine WBC (Auto) November 14, 2021 3:52am 11-25 /HPF 0-5 [facility] [address] [place] [address] 86280 Urine Epithelial Cells (Auto) November 14, 2021 3:52am 6-10 /HPF 0-5 [facility] [address] [place] [address] 74419 Urine Casts (Auto) November 14, 2021 3:52am None seen /LPF None Seen [facility] [address] [place] [address] 11099 Urine Bacteria (Auto) November 14, 2021 3:52am Rare /HPF None Seen [facility] [address] [place] [address] 09431 Sodium Level November 16, 2021 5:35am 137 mmol/L 137-146 [facility] [address] [place] [address] 41023 Sodium Level November 21, 2021 5:09pm 135 mmol/L 137-146 [facility] [address] [place] [address] 98735 Potassium Level November 16, 2021 5:35am 4.2 mmol/L 3.5-5.3 [facility] [address] [place] [address] 90252 Potassium Level November 21, 2021 5:09pm 4.7 mmol/L 3.5-5.3 [facility] [address] [place] [address] 22711 Chloride Level November 16, 2021 5:35am 99 mmol/L 98-107 [facility] [address] [place] [address] 30613 Chloride Level November 21, 2021 5:09pm 101 mmol/L 98-107 [facility] [address] [place] [address] 95451 Carbon Dioxide Level November 16, 2021 5:35am 27 mmol/L 23-32 [facility] [address] [place] [address] 94624 Carbon Dioxide Level November 21, 2021 5:09pm 22 mmol/L 23-32 [facility] [address] [facility] 17707 Anion Gap November 16, 2021 5:35am 11 mmol/L 07-23 [facility] [address] [facility] 49103 Anion Gap November 21, 2021 5:09pm 12 mmol/L 07-23 [facility] [address] [place] [address] 04327 Blood Urea Nitrogen November 16, 2021 5:35am 31 mg/dl 08-02 [facility] [address] [place] [address] 54857 Blood Urea Nitrogen November 21, 2021 5:09pm 49 mg/dl 08-02 [facility] [address] [place] [address] 80179 Creatinine November 16, 2021 5:35am 1.2 mg/dL 0.5-1.1 [facility] [address] [place] [address] 18083 Creatinine November 21, 2021 5:09pm 1.3 mg/dL 0.5-1.1 [facility] [address] [place] [address] 59175 Estimated Creatinine Clearance November 16, 2021 5:35am 65.4 ml/min This value is calculated by Cockcroft Gault Equation using ideal body weight. This result is dependent on an accurate patient height and weight which is obtained from patients medical record. Cockcroft, D.W. and M.H. Gault. Prediction of creatinine clearance from serum creatinine. Nephron. 1975. 16(1):31-41. [facility] [address] [place] [address] 19577 Estimated Creatinine Clearance November 21, 2021 5:09pm 56.8 ml/min This value is calculated by Cockcroft Gault Equation using ideal body weight. This result is dependent on an accurate patient height and weight which is obtained from patients medical record. Cockcroft, D.W. and M.H. Gault. Prediction of creatinine clearance from serum creatinine. Nephron. 1975. 16(1):31-41. [facility] [address] [place] [address] 52337 Estimated GFR () November 16, 2021 5:35am 56 >60 [facility] [address] [place] [address] 66697 Estimated GFR () November 21, 2021 5:09pm 51 >60 [facility] [address] [place] [address] 52376 Estimated GFR (Non- November 16, 2021 5:35am 48 >60 [facility] [address] [place] [address] 10829 Estimated GFR (Non- November 21, 2021 5:09pm 44 >60 [facility] [address] [place] [address] 75677 BUN/Creatinine Ratio November 16, 2021 5:35am 25.8 10.0-20.0 [facility] [address] [place] [address] 57955 BUN/Creatinine Ratio November 21, 2021 5:09pm 37.7 10.0-20.0 [facility] [address] [place] [address] 03661 Glucose Level November 16, 2021 5:35am 97 mg/dL 70-100 [facility] [address] [place] [address] 86326 Glucose Level November 21, 2021 5:09pm 114 mg/dL 70-100 [facility] [address] [place] [address] 70914 Calcium Level November 16, 2021 5:35am 9.6 mg/dl 8.6-10.3 [facility] [address] [place] [address] 70956 Calcium Level November 21, 2021 5:09pm 10.0 mg/dl 8.6-10.3 [facility] [address] [place] [address] 52651 Magnesium Level November 16, 2021 5:35am 2.5 mg/dL 1.8-2.5 [facility] [address] [place] [address] 76224 Total Bilirubin November 14, 2021 3:16pm < 0.2 mg/dl <1.1 [facility] [address] [place] [address] 87700 Aspartate Amino Transf (AST/SGOT) November 14, 2021 3:16pm 19 U/L 15-41 [facility] [address] [place] [address] 89825 Alanine Aminotransferase (ALT/SGPT) November 14, 2021 3:16pm 12 U/L 14-54 [facility] [address] [place] [address] 68068 Troponin T High Sensitivity November 13, 2021 [...] the JESUS score for the inpatient setting). [facility] [address] [facility] 97883 Troponin T High Sensitivity November 21, 2021 [...] the JESUS score for the inpatient setting). [facility] [address] [place] [address] 45606 SH-Uda-P-Type Natriuretic Peptide November 13, 2021 9:45pm 153 pg/mL 0-900 The half-life of plasma BNP is significantly increased in patients with compromised renal function. [facility] [address] [place] [address] 25735 Total Protein November 14, 2021 3:16pm 7.6 g/dL 6.4-8.3 [facility] [address] [place] [address] 45628 Albumin November 14, 2021 3:16pm 3.5 g/dl 4.0-5.0 [facility] [address] [place] [address] 31688 Albumin/Globulin Ratio November 14, 2021 3:16pm 0.9 1.0-2.6 [facility] [address] [place] [address] 69412 Triglycerides Level November 14, 2021 3:16pm 179 mg/dL <150 151 - 199 mg/dL = Borderline High [facility] [address] [place] [address] 44198 Cholesterol Level November 14, 2021 3:16pm 189 mg/dl <199 <200 mg/dL = Desirable [facility] [address] [place] [address] 00182 LDL Cholesterol, Calculated November 14, 2021 3:16pm 117 mg/dl <129 [facility] [address] [place] [address] 23972 HDL Cholesterol November 14, 2021 3:16pm 36 mg/dL >40 < 40 mg/dl: Low HDL-cholestero l(major risk factor for CHD) >/= 60 mg/dl: High HDL-cholestero l(negative risk factor for CHD) HDL-cholestero l is affected by a number of factors, e.g., smoking, excercise, hormones, sex and age. [facility] [address] [place] [address] 98806 Cholesterol Ratio (LDL/HDL) November 14, 2021 3:16pm 3.3 LDL/HDL Interpretation : Ratio Men Women 1/2 Average 1.00 1.47 Average 3.55 3.22 2X Average 6.25 5.03 3X Average 7.99 6.14 [facility] [address] [place], [place] [address] Cholesterol/HDL Ratio November 14, 2021 3:16pm 5.3 Cholesterol/HD L Interpretation : Ratio Men Women 1/2 Average 3.43 3.27 Average 4.97 4.44 2X Average 9.55 7.05 3X Average 23.39 11.04 [facility] [address] [place] [address] 30089 Alkaline Phosphatase November 14, 2021 3:16pm 47 U/L 35-104 [facility] [address] [place], [place] [address] Thyroid Stimulating Hormone (Reflex November 14, 2021 3:16pm 1.95 uIU/mL 0.34-5.60 [facility] [address] [place] [address] 15808 Bedside Glucose November 15, 2021 8:35pm 133 mg/dl 70-100 NOTE: Any discrepancy between finger stick glucose result and patient's clinical presentation should be confirmed by the laboratory. [facility] [address] [place], [place] [address] Bedside Glucose November 21, 2021 4:52pm 112 mg/dl 70-100 NOTE: Any discrepancy between finger stick glucose result and patient's clinical presentation should be confirmed by the laboratory. [facility] [address] [place] [address] 38061 Microbiology Results Procedure Source Result Collection Date/Time Result Date/Time Result Comment Performing Site Urine Culture Urine,Miri n Catch Mixed janis November 16, 2021 9:36am [facility] [address] [facility] [address] Diagnostic Imaging Reports Report Dictated Date/Time Dictated By Status Radiology Report November 13, 2021 10:32pm [place] [address] Patient Name: Alysa Luevano Medical Record#: [id number] 1 Address: [address] [place] [address] City/State/Zip: [place] [address]: Rhonda Rodrigues MD Insurance: [facility] et (Medicaid) /Age/Sex: 1960/61/F Self Pay Admit/Reg Date: 11/13/[address]: Juvenal Fritz Location: ED.AH/ PCP: Agata Reza MD Date of Service: 11/13/21 Order (s): XR chest 1V portable CPT Code: 76230 Report Number: [id number] Reason for Exam: Chest Pain PROCEDURE INFORMATION: [...] By: Italia Bales MD 11/13/212231 TD/TT: 11/13/212231Tech: [id number] cc: ANTHONY RAMIREZ* Agata Reza MD; Reyna Rodrigues MD Report Dictated Date/Time Dictated By Status Radiology Report November 13, 2021 11:42pm [place] [address] Patient Name: Alysa Luevano Medical Record#: [id number] 1 Address: [address] [place] [address] City/State/Zip: [place] [address]: Rhonda Rodrigues MD Insurance: [facility] (Medicaid) /Age/Sex: 1960/61/F Self Pay Admit/Reg Date: 11/13/[address]: Juvenal Fritz Location: ED.AH/ PCP: Agata Reza MD Date of Service: 11/13/21 Order (s): CT head stroke wo contrast CPT Code: 49769 Report Number: [id number] Reason for Exam: R sided numbness, TIA ADDENDUM The findings were verbally communicated via telephone conference with Reyna Rodrigues at 11:46 PM EDT on 11/13/2021. The findings were acknowledged and understood. This document has been electronically signed by [facility] Radiologist ITALIA BALES MD Addendum Dictated By: [...] Bales MD 11/13/212342 TD/TT: 11/13/212341Tech: [id number] cc: ANTHONY RAMIREZ* Agata Reza MD; Reyna Rodrigues MD Report Dictated Date/Time Dictated By Status Radiology Report November 13, 2021 11:43pm Italia Bales MD completed [address] [address] Patient Name: Luevano,Alysa Medical Record#: [id number] 1 Address: [address] [place] [address] City/State/Zip: [place] [address]: Rhonda Rodrigues MD Insurance: [facility] (Medicaid) /Age/Sex: 1960/61/F Self Pay Admit/Reg Date: 11/13/[address]: Juvenal Fritz Location: ED.AH/ PCP: Agata Reza MD Date of Service: 11/13/21 Order (s): CT angio neck stroke CPT Code: 17719 Report Number: [id number] Reason for Exam: R sided numbness, TIA [...] has been electronically signed by [facility] Radiologist ITALIA BALES MD Dictated By: Italia Bales MD 11/13/212342 Signed By: Italia Bales MD 11/13/212343 TD/TT: 11/13/212342Tech: [id number] cc: CYNTHIA; ASHLEY* Agata Reza MD; Reyna Rodrigues MD Report Dictated Date/Time Dictated By Status Radiology Report November 14, 2021 12:24am Italia [place] [address] Patient Name: Alysa Luevano Medical Record#: [id number] 1 Address: [address] [place] [address] City/State/Zip: [place] [address]: Rhonda Rodrigues MD Insurance: [facility] (Medicaid) /Age/Sex: 1960/61/F Self Pay Admit/Reg Date: 11/13/[address]: Juvenal Fritz Location: ED.AH/ PCP: Agata Reza MD Date of Service: 11/13/21 Order (s): CT angio head stroke CPT Code: 19325 Report Number: [id number] Reason for Exam: R sided numbness, TIA ADDENDUM The findings were verbally communicated via telephone conference with Reyna Rodrigues at 12:26 AM EDT on 11/14/2021. The findings were acknowledged and understood. This document has been electronically signed by [facility] Radiologist ITALIA BALES MD Addendum Dictated By: [...] Italia Bales MD 11/14/21 0024 Signed By: Italia Bales MD 11/14/214 TD/TT: 11/14/21 0024Tech: [id number] cc: CYNTHIA; ASHLEY* Agata Reza MD; Reyna Rodrigues MD Report Dictated Date/Time Dictated By Status Echocardiogram November 14, 2021 8:01am Jeniffer Guardado MD completed [address] [address] Patient Name: Alysa Luevano Medical Record#: [id number] 1 Address: [address] [place] [address] City/State/Zip: [place] [address]: Chad Naqvi MD Insurance: [employer] (Medicaid) /Age/Sex: 1960/61/F Self Pay Admit/Reg Date: 11/14/[address]: Demarcus Grigsby MD Location: [address] PCP: Agata Reza MD Date of Service: 11/14/21 Order (s): Echo TTE comp w/dop w contrast CPT Code: C8929 Report Number: [id number] Reason for Exam: tia Transthoracic Echocardiography Report (TTE) Demographics Patient Name Bassem Watt Gender Female MR Number [id number] Date of 1960 Age 61 year(s) Room Number [id number] Height 66 inches Date of study 11/14/2021 Weight 280.01 pounds Referring MD BSA 2.31 m^2 Interpreting MD Jeniffer Guardado MD BMI 45.19 kg/m^2 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 Mild mitral regurgitation. No aortic stenosis. No aortic regurgitation. The aortic valve is not well visualized. Seuo-cc-guwgcolb tricuspid regurgitation. Pulmonary artery systolic pressure is [...] valve is not well visualized. TRICUSPID VALVE: Yofy-ls-lnlzaqqu tricuspid regurgitation. Pulmonary artery systolic pressure is [...] MD 11/14/21800 Signed By: Jeniffer Guardado MD 11/14/211640 TD/TT: 11/14/21800Tech: [email or web address] cc: TESSIE; KRISTIN; ASHLEY* Demarcus Grigsby MD; Agata Reza MD; Jeniffer Guardado MD Report Dictated Date/Time Dictated By Status Radiology Report November 15, 2021 9:36am Jose Alberto Bangura MD completed [address] [address] Patient Name: Alysa Luevano Medical Record#: [id number] 1 Address: [address] [place] [address] City/State/Zip: [place] [address]: Chad Naqvi MD Insurance: [facility] (Medicaid) /Age/Sex: 1960/61/F Self Pay Admit/Reg Date: 11/14/[address]: Demarcus Grigsby MD Location: [address] PCP: Agata Reza MD Date of Service: 11/15/21 Order (s): MR head/brain wo contrast CPT Code: 13963 Report Number: [id number] Reason for Exam: tia ADDENDUM Impression to [...] 11/15/21935 Signed By: Jose Alberto Bangura MD 11/15/21946 TD/TT: 11/15/21935Tech: [email or web address] cc: TESSIE; LUIS RAMIREZ* Demarcus Grigsby MD; Agata Reza MD; Taina Naqvi MD Report Dictated Date/Time Dictated By Status Electrocardiogram November 15, 2021 7:22pm Jeniffer [place] [address] Patient Name: Alysa Luevano Medical Record#: [id number] 1 Address: [address] [place] [address] City/State/Zip: [place] [address]: Chad Naqvi MD Insurance: [facility] (Medicaid) /Age/Sex: 1960/61/F Self Pay Admit/Reg Date: 11/15/[address]: Juvenal Dubon Location: [facility] PCP: Agata Reza MD Date of Service: 11/15/21 Order (s): EKG Electrocardiogram CPT Code: 76404 Report Number: [id number] Reason for Exam: PAIN JUNCTIONAL BRADYCARDIA with PACs Comparison Summary: No serial comparison made Summary: Abnormal ECG Dictated By: Jeniffer Guardado MD 11/15/211921 Signed By: Jeniffer Guardado MD 11/16/212047 TD/TT: 11/15/211921Tech: [email or web address] cc: THEODORA; ASHLEY* Agata Reza MD; Taina Naqvi MD Report Dictated Date/Time Dictated By Status Radiology Report November 21, 2021 6:30pm Emmanuel La MD completed [facility] [address] [place] [address] Patient Name: Alysa Luevano Medical Record#: [id number] 1 Address: [address] [place] [address] City/State/Zip: [place] [address]: Haja Alcantara MD Insurance: [facility] (Medicaid) /Age/Sex: 1960/61/F Self Pay Admit/Reg Date: 11/21/[address]: Carroll castellon MD Location: [facility]/ PCP: Agata Reza MD Date of Service: 11/21/21 Order (s): CT head/brain wo contrast CPT Code: 29179 Report Number: [id number] Reason for Exam: headache, recent CVa, right [...] 21, 2021 7:51pm Respiratory rate 18 /min 12-November 092021 7:51pm Oxygen saturation by Pulse oximetry 98 % 95-100 November 21, 2021 7:51pm BP Systolic 105 mm[Hg] 90-140 November 21, 2021 7:51pm BP Diastolic 59 mm[Hg] 60-90 November 21, 2021 7:51pm BMI (Body Mass Index) 51.6 kg/m2 2021 4:29pm Advance Directives Advance Directive Response Recorded Date/ Time Pt has Medical Orders for Li fe Sustaining Tx Form (MOLST)? No November 14, 2021 10:59am Advance Directives No November 10:59am Health Care Proxy No November 14, 2021 10:59am Advance Directives No November 4:18pm Health Care Proxy No November 4:18pm Insurance Providers Guarantor Alysa Luevano Address [address] [place] [address] Contact Info. Home Phone: Payer Policy Id Coverage Id Subscriber's Name Subscriber Id Effective Date Expiration Date [facility] (Medicaid) [id number] Alysa Luevano [id number] Encounters Encounter Location(s) Arrival/Admit Date Discharge/Depart Date Provider(s) Discharged Inpatient [facility] November 15, 2021 10:43am November 17, 2021 12:23pm Taina Naqvi MD Departed Emergency [facility] November 21, 2021 4:16pm November 21, 2021 8:18pm null Recent Diagnosis Onset Date Bradycardia Cerebrovascular disease Numbness TIA (transient ischemic attack) Weakness HTN (hypertension) Obesity Functional Status Observation Response Date Recorded Assistive Devices Cane November 14, 2021 10:59am Ambulation Distance November 11:08am Ambulation Tolerance Fair November 162021 11:06am Ambulation Tolerance Fair November 172021 11:08am Bathing Type Bath in a Bag with Setup 2021 11:06am Date of Last Bowel Movement 11/15/21 Sept ember 2021 1:20am Oral Care Mouth Rinse November 16 8:30pm Toileting Ability Maximum Assistance November 172021 10:40am Mental Status Observation Response Date Recorded Arousable To Name November 17 11:41am Patient Behavior Appropriate November 17, 2021 11:41am Cooperative November 17 11:41am Comprehension Ability Understands Concepts Septe mb2021 11:41am Level of Consciousness Awake November 17, [...] 6 months Rachna Norris MD Work Phone: [address] [place] [address] Agata Reza MD Work Phone: [address] [address] Agata Reza MD Work Phone: [phone] [phone] Future Procedures Procedure Name Scheduled Date Hospital [...] 9:47pm Patient Preference for Pain Management S jayytejohnyer 2021 3:09am Provider Order to Nurse November 14, 2 022 10:30am Continuous Pulse Oximetry November 13, 2021 9:47pm Continuous Pulse Oximetry November 13, 2021 10:32pm Sequential Compression Device November 14, 2021 3:09am Vascular Surgery Consult November 14, 2021 2:33pm Troponin T High Sensitivity November 212021 6:09pm EKG ED Electrocardiogram November 21, 2021 4:46pm Saline Lock Insert/Manage November 4:46pm Oxygen Initiate/Maintain November 21, 2021 4:46pm Continuous Pulse Oximetry November 4:46pm Future Medications Future medication information is unavailable Patient Instructions Patient instructions are unavailable Goals Acute Goals You were seen in [...] show any evolution of your known stroke. Absence of falls Including: - Early & [...]
--- OUTSIDE RECORDS SUMMARY | 2022-08-06 05:06 | XMS_ITS | Continuity of Care Document ---
Author Name Unknown Address [address] [place] [address] Phone Organization [facility] Address [address] [place] [address] Phone Care Team Providers Care Director Of Litigation Name Role Phone MD Kerri Rezaly Primary Care Provider MD Reyna Rodrigues Emergency Provider [employer] Other Provider Unavailable MD Taina Naqvi Attending Provider [phone] MD Ken Norrisim Other Provider MD [facility] Chief Complaint and Reason for [...] Prior to Admission Home Health Aide Sep [facility] 2021 1:03pm Living Situation [facility] 2021 4:42pm Living Situation Apartment November 29, [...] Instructions Cetirizine Active 10 MG PO DAILY [facility] 2021 12:00am Metoprolol Succinate Active 200 MG PO DAILY [facility] 2021 12:00am Chlorthalidon e Discontin ued 25 MG PO DAILY [facility] 2021 12:00am [facility] 2021 12:44a m Chlorthalidon e Active 75 MG PO DAILY [facility] 2021 12:00am Acetaminophen Active 500 MG PO DAILY [facility] 2021 12:00am Pantoprazole Active 40 MG PO DAILY [facility] 2021 12:00am Omeprazole Active 20 MG PO DAILY [facility] 2021 12:00am Verapamil Active 240 MG PO DAILY [facility] 2021 12:00am Fluticasone Propionate (Flovent Hfa) 220 mcg/actuation HFA aerosol inhaler Active 1 INH INH TWICE A DAY [facility] 2021 12:00am Albuterol Sulfate (Proair Hfa) 90 mcg/actuation HFA aerosol inhaler Active 1 INH INH EVERY 6 HOURS [facility] 2021 12:00am Lisinopril Active 40 MG PO DAILY [facility] 2021 12:00am Topiramate Active 100 MG PO DAILY [facility] 2021 12:00am Rosuvastatin Active 20 MG PO DAILY [facility] 2021 12:00am Bupropion Hcl Active 300 MG PO DAILY [facility] 2021 12:00am Cholecalcifer ol (Vitamin D3) (Vitamin D3) 125 mcg (5,000 unit) tablet Active 125 MCG PO DAILY [facility] 2021 12:00am Acetaminophen Active 650 MG PO THREE TIMES A DAY [facility] 2021 12:00am Clopidogrel Active 75 MG PO DAILY 30 Septe [facility] 2021 12:00am Procedures Procedure Date [...] Request November 13, 2021 10:48pm Added test [facility] [address] [place] [address] 11387 White Blood Count November 16, 2021 5:35am 11.5 X10 3/uL 4.5-11.0 [facility] [address] [place] [address] 88945 White Blood Count November 21, 2021 5:09pm 13.5 X10 3/uL 4.5-11.0 [facility] [address] [place] [address] 16758 White Blood Count November 29, 2021 1:11pm 9.6 X10 3/uL 4.5-11.0 [facility] [address] [place] [address] 47390 Red Blood Count November 16, 2021 5:35am 4.28 X10 6/uL 3.70-5.00 [facility] [address] [place] [address] 21785 Red Blood Count November 21, 2021 5:09pm 4.70 X10 6/uL 3.70-5.00 [facility] [address] [place] [address] 34466 Red Blood Count November 29, 2021 1:11pm 4.55 X10 6/uL 3.70-5.00 [facility] [address] [place] [address] 06288 Hemoglobin November 16, 2021 5:35am 12.4 g/dl 11.0-16.0 [facility] [address] [place] [address] 89873 Hemoglobin November 21, 2021 5:09pm 13.9 g/dl 11.0-16.0 [facility] [address] [place] [address] 10097 Hemoglobin November 29, 2021 1:11pm 13.3 g/dl 11.0-16.0 [facility] [address] [place] [address] 05715 Hematocrit November 16, 2021 5:35am 39.7 % 33.5-45.0 [facility] [address] [place] [address] 53430 Hematocrit November 21, 2021 5:09pm 42.3 % 33.5-45.0 [facility] [address] [place] [address] 33696 Hematocrit November 29, 2021 1:11pm 41.1 % 33.5-45.0 [facility] [address] [place] [address] 37730 Mean Corpuscular Volume November 16, 2021 5:35am 92.8 fl 80.0-100.0 [facility] [address] [place] [address] 48112 Mean Corpuscular Volume November 21, 2021 5:09pm 90.0 fl 80.0-100.0 [facility] [address] [place] [address] 91386 Mean Corpuscular Volume November 29, 2021 1:11pm 90.3 fl 80.0-100.0 [facility] [address] [place] [address] 83366 Mean Corpuscular Hemoglobin November 16, 2021 5:35am 29.0 pg 27.0-34.0 [facility] [address] [place] [address] 92592 Mean Corpuscular Hemoglobin November 21, 2021 5:09pm 29.6 pg 27.0-34.0 [facility] [address] [place] [address] 39443 Mean Corpuscular Hemoglobin November 29, 2021 1:11pm 29.2 pg 27.0-34.0 [facility] 56176 Mean Corpuscular Hemoglobin Concent November 16, 2021 5:35am 31.2 g/dl 31.0-36.0 [facility] [address] [place] [address] 72661 Mean Corpuscular Hemoglobin Concent November 21, 2021 5:09pm 32.9 g/dl 31.0-36.0 [facility] [address] [place] [address] 32026 Mean Corpuscular Hemoglobin Concent November 29, 2021 1:11pm 32.4 g/dl 31.0-36.0 [facility] [address] [place] [address] 48001 Red Cell Distribution Width November 16, 2021 5:35am 13.7 % 11.5-15.0 [facility] [address] [place] [address] 73378 Red Cell Distribution Width November 21, 2021 5:09pm 13.8 % 11.5-15.0 [facility] [address] [place] [address] 89223 Red Cell Distribution Width November 29, 2021 1:11pm 13.3 % 11.5-15.0 [facility] [address] [place] [address] 62729 Platelet Count November 16, 2021 5:35am 347 X10 3/uL 150-400 [facility] [address] [place] [address] 06878 Platelet Count November 21, 2021 5:09pm 404 X10 3/uL 150-400 [facility] [address] [place] [address] 68790 Platelet Count November 29, 2021 1:11pm 339 X10 3/uL 150-400 [facility] [address] [place] [address] 85330 Immature Granulocyte % (Auto) November 16, 2021 5:35am 1.5 % [facility] [address] [place] [address] 37631 Immature Granulocyte % (Auto) November 21, 2021 5:09pm 0.7 % [facility] [address] [place] [address] 97294 Immature Granulocyte % (Auto) November 29, 2021 1:11pm 0.6 % [facility] [address] [place] [address] Neutrophils (%) (Auto) November 16, 2021 5:35am 65.6 % [facility] [address] [place] [address] Neutrophils (%) (Auto) November 21, 2021 5:09pm 70.0 % [facility] [address] [place] [address] Neutrophils (%) (Auto) November 29, 2021 1:11pm 73.9 % [facility] 97153 Lymphocytes (%) (Auto) November 16, 2021 5:35am 26.4 % [facility] [address] [place] [address] 70971 Lymphocytes (%) (Auto) November 21, 2021 5:09pm 21.6 % [facility] [address] [place] [address] [place] [address] Lymphocytes (%) (Auto) November 29, 2021 1:11pm 17.5 % [facility] [address] [place] [address] 88653 Monocytes (%) (Auto) November 16, 2021 5:35am 5.8 % [facility] [address] [place] [address] 85700 Monocytes (%) (Auto) November 21, 2021 5:09pm 6.7 % [facility] [address] [place] [address] [place] [address] Monocytes (%) (Auto) November 29, 2021 1:11pm 6.6 % [facility] [address] [place] [address] 00098 Eosinophils (%) (Auto) November 16, 2021 5:35am 0.3 % [facility] [address] [place] [address] 13250 Eosinophils (%) (Auto) November 21, 2021 5:09pm 0.6 % [facility] [address] [place] [address] [place] [address] Eosinophils (%) (Auto) November 29, 2021 1:11pm 0.8 % [facility] [address] [place] [address] [place] [address] Basophils (%) (Auto) November 16, 2021 5:35am 0.4 % [facility] [address] [place] [address] 36583 Basophils (%) (Auto) November 21, 2021 5:09pm 0.4 % [facility] [address] [place] [address] 20805 Basophils (%) (Auto) November 29, 2021 1:11pm 0.6 % [facility] [address] [place] [address] 03180 Immature Granulocyte # (Auto) November 16, 2021 5:35am 0.17 X10 3/uL 0.00-0.09 [facility] [address] [place] [address] 22984 Immature Granulocyte # (Auto) November 21, 2021 5:09pm 0.10 X10 3/uL 0.00-0.09 [facility] [address] [place] [address] 13300 Immature Granulocyte # (Auto) November 29, 2021 1:11pm 0.06 X10 3/uL 0.00-0.09 [facility] [address] [place] [address] 72310 Neutrophils # (Auto) November 16, 2021 5:35am 7.5 X10 3/uL 1.5-7.8 [facility] [address] [place] [address] 76012 Neutrophils # (Auto) November 21, 2021 5:09pm 9.4 X10 3/uL 1.5-7.8 [facility] [address] [place] [address] 12887 Neutrophils # (Auto) November 29, 2021 1:11pm 7.1 X10 3/uL 1.5-7.8 [facility] [address] [place] [address] 06626 Lymphocytes # (Auto) November 16, 2021 5:35am 3.0 X10 3/uL 1.0-4.8 [facility] [address] [place] [address] 22397 Lymphocytes # (Auto) November 21, 2021 5:09pm 2.9 X10 3/uL 1.0-4.8 [facility] [address] [place] [address] 64039 Lymphocytes # (Auto) November 29, 2021 1:11pm 1.7 X10 3/uL 1.0-4.8 [facility] [address] [place] [address] 19833 Monocytes # (Auto) November 16, 2021 5:35am 0.7 X10 3/uL 0.0-0.8 [facility] [address] [place] [address] 48351 Monocytes # (Auto) November 21, 2021 5:09pm 0.9 X10 3/uL 0.0-0.8 [facility] [address] [place] [address] 70697 Monocytes # (Auto) November 29, 2021 1:11pm 0.6 X10 3/uL 0.0-0.8 [facility] [address] [place] [address] 30229 Eosinophils # (Auto) November 16, 2021 5:35am 0.0 X10 3/uL 0.0-0.5 [facility] [address] [place] [address] 55451 Eosinophils # (Auto) November 21, 2021 5:09pm 0.1 X10 3/uL 0.0-0.5 [facility] [address] [place] [address] 78701 Eosinophils # (Auto) November 29, 2021 1:11pm 0.1 X10 3/uL 0.0-0.5 [facility] [address] [place] [address] 22845 Basophils # (Auto) November 16, 2021 5:35am 0.1 X10 3/uL 0.0-0.2 [facility] [address] [place] [address] 16960 Basophils # (Auto) November 21, 2021 5:09pm 0.1 X10 3/uL 0.0-0.2 [facility] [address] [place] [address] 68078 Basophils # (Auto) November 29, 2021 1:11pm 0.1 X10 3/uL 0.0-0.2 [facility] [address] [place] [address] 52800 Hemoglobin A1c November 14, 2021 3:16pm 5.8 4.3-5.9 [facility] [address] [place] [address] 44771 Estimated Average Glucose (eAG) November 14, 2021 3:16pm 120 mg/dl [facility] [address] [place] [address] 99250 Nucleated Red Blood Cells % November 16, 2021 5:35am 0.0 /100 WBC 0.0-0.0 [facility] [address] [facility] 76785 Nucleated Red Blood Cells % November 21, 2021 5:09pm 0.0 /100 WBC 0.0-0.0 [facility] [address] [place] [address] 54110 Nucleated Red Blood Cells % November 29, 2021 1:11pm 0.0 /100 WBC 0.0-0.0 [facility] [address] [place] [address] 91266 Urine Color November 14, 2021 3:52am Yellow Yellow [facility] [address] [place] [address] 70898 Urine Color November 29, 2021 2:28pm Yellow Yellow [facility] [address] [place] [address] 40161 Urine Clarity November 14, 2021 3:52am Clear Clear [facility] [address] [place] [address] 52760 Urine Clarity November 29, 2021 2:28pm Clear Clear [facility] [address] [place] [address] 00914 Urine pH November 14, 2021 3:52am 5.0 5.0-8.0 [facility] [address] [place] [address] 41624 Urine pH November 29, 2021 2:28pm 6.5 5.0-8.0 [facility] [address] [place] [address] 19939 Urine Specific [place] November 14, 2021 3:52am >= 1.030 1.005-1.03 0 [facility] [address] [place] [address] 47510 Urine Specific [place] November 29, 2021 2:28pm <= 1.005 1.005-1.03 0 [facility] [address] [place] [address] 48804 Urine Blood November 14, 2021 3:52am Negative mg/dL Negative [facility] [address] [place] [address] 69748 Urine Blood November 29, 2021 2:28pm Negative mg/dL Negative [facility] [address] [place] [address] 23921 Urine Protein November 14, 2021 3:52am Negative mg/dL Negative [facility] [address] [place] [address] 75484 Urine Protein November 29, 2021 2:28pm Negative mg/dL Negative [facility] [address] [place] [address] 48496 Urine Glucose (UA) November 14, 2021 3:52am Negative mg/dl Negative [facility] [address] [place] [address] 60556 Urine Glucose (UA) November 29, 2021 2:28pm Negative mg/dl Negative [facility] [address] [place] [address] 53628 Urine Ketones November 14, 2021 3:52am Negative mg/dL Negative [facility] [address] [place] [address] 63341 Urine Ketones November 29, 2021 2:28pm Negative mg/dL Negative [facility] [address] [place] [address] 11465 Urine Nitrate November 14, 2021 3:52am Negative Negative [facility] [address] [place] [address] 97105 Urine Nitrate November 29, 2021 2:28pm Negative Negative [facility] [address] [place] [address] 83167 Urine Bilirubin November 14, 2021 3:52am Negative mg/dL Negative [facility] [address] [place] [address] 15384 Urine Bilirubin November 29, 2021 2:28pm Negative mg/dL Negative [facility] [address] [place] [address] 28556 Urine Urobilinogen November 14, 2021 3:52am 0.2 E.U./dL Normal [facility] [address] [place] [address] 72386 Urine Urobilinogen November 29, 2021 2:28pm 1.0 E.U./dL Normal [facility] [address] [place] [address] 60534 Urine Leukocyte Esterase November 14, 2021 3:52am Moderate mg/dL Negative [facility] [address] [place] [address] 07048 Urine Leukocyte Esterase November 29, 2021 2:28pm Negative mg/dL Negative [facility] [address] [place] [address] 25201 Urine RBC (Auto) November 14, 2021 3:52am None seen /HPF 0-2 [facility] [address] [place] [address] 45805 Urine WBC (Auto) November 14, 2021 3:52am 11-25 /HPF 0-5 [facility] [address] [place] [address] 08326 Urine Epithelial Cells (Auto) November 14, 2021 3:52am 6-10 /HPF 0-5 [facility] [address] [place] [address] 27020 Urine Casts (Auto) November 14, 2021 3:52am None seen /LPF None Seen [facility] [address] [place] [address] 75071 Urine Bacteria (Auto) November 14, 2021 3:52am Rare /HPF None Seen [facility] [address] [place] [address] 00447 Sodium Level November 16, 2021 5:35am 137 mmol/L 137-146 [facility] [address] [place] [address] 98784 Sodium Level November 21, 2021 5:09pm 135 mmol/L 137-146 [facility] [address] [place] [address] 91287 Sodium Level November 29, 2021 1:11pm 135 mmol/L 137-146 [facility] [address] [place] [address] 88048 Potassium Level November 16, 2021 5:35am 4.2 mmol/L 3.5-5.3 [facility] [address] [place] [address] 40027 Potassium Level November 21, 2021 5:09pm 4.7 mmol/L 3.5-5.3 [facility] [address] [place] [address] 91296 Potassium Level November 29, 2021 1:11pm 4.3 mmol/L 3.5-5.3 [facility] [address] [place] [address] 49223 Chloride Level November 16, 2021 5:35am 99 mmol/L 98-107 [facility] [address] [place] [address] 42775 Chloride Level November 21, 2021 5:09pm 101 mmol/L 98-107 [facility] [address] [place] [address] 07489 Chloride Level November 29, 2021 1:11pm 100 mmol/L 98-107 [facility] [address] [place] [address] 18365 Carbon Dioxide Level November 16, 2021 5:35am 27 mmol/L 23-32 [facility] [address] [facility] 92149 Carbon Dioxide Level November 21, 2021 5:09pm 22 mmol/L [facility] [address] [facility] 73540 Carbon Dioxide Level November 29, 2021 1:11pm 22 mmol/L [facility] [address] [place] [address] 43928 Anion Gap November 16, 2021 5:35am 11 mmol/L 07-23 [facility] 95046 Anion Gap November 21, 2021 5:09pm 12 mmol/L 07-23 [facility] [address] [place] [address] 26687 Anion Gap November 29, 2021 1:11pm 13 mmol/L - [facility] [address] [place] [address] 81237 Blood Urea Nitrogen November 16, 2021 5:35am 31 mg/dl 08-02 [facility] [address] [place] [address] 68839 Blood Urea Nitrogen November 21, 2021 5:09pm 49 mg/dl 08-02 [facility] [address] [place] [address] 23263 Blood Urea Nitrogen November 29, 2021 1:11pm 25 mg/dl 08-02 [facility] [address] [place] [address] 68793 Creatinine November 16, 2021 5:35am 1.2 mg/dL 0.5-1.1 [facility] [address] [place] [address] 88000 Creatinine November 21, 2021 5:09pm 1.3 mg/dL 0.5-1.1 [facility] [address] [place] [address] 81092 Creatinine November 29, 2021 1:11pm 0.9 mg/dL 0.5-1.1 [facility] [address] [place] [address] 01669 Estimated Creatinine Clearance November 16, 2021 5:35am 65.4 ml/min This value is calculated by Cockcroft Gault Equation using ideal body weight. This result is dependent on an accurate patient height and weight which is obtained from patients medical record. [employer], Mirna.W. and M.H. Gault. Prediction of creatinine clearance from serum creatinine. Nephron. 1976. 16(1):31-41. [facility] [address] [facility] 73037 Estimated Creatinine Clearance November 21, 2021 5:09pm 56.8 ml/min This value is calculated by Cockcroft Gault Equation using ideal body weight. This result is dependent on an accurate patient height and weight which is obtained from patients medical record. Cockcroft, D.W. and M.H. Gault. Prediction of creatinine clearance from serum creatinine. Nephron. 1975. 16(1):31-41. [facility] [address] [facility] 30576 Estimated Creatinine Clearance November 29, 2021 1:11pm 74.8 ml/min This value is calculated by Cockcroft Gault Equation using ideal body weight. This result is dependent on an accurate patient height and weight which is obtained from patients medical record. Cockcroft, D.W. and M.H. Gault. Prediction of creatinine clearance from serum creatinine. Nephron. 1975. 16(1):31-41. [facility] [address] [facility] 37644 Estimated GFR () November 16, 2021 5:35am 56 >60 [facility] [address] [place] [address] 73077 Estimated GFR () November 21, 2021 5:09pm 51 >60 [facility] [address] [place] [address] 92024 Estimated GFR () November 29, 2021 1:11pm 79 >60 [facility] [address] [place] [address] 06187 Estimated GFR (Non- November 16, 2021 5:35am 48 >60 [facility] [address] [place] [address] 80531 Estimated GFR (Non- November 21, 2021 5:09pm 44 >60 [facility] [address] [place] [address] 24272 Estimated GFR (Non- November 29, 2021 1:11pm 68 >60 [facility] [address] [place] [address] 44085 BUN/Creatinine Ratio November 16, 2021 5:35am 25.8 10.0-20.0 [facility] [address] [place] [address] 89925 BUN/Creatinine Ratio November 21, 2021 5:09pm 37.7 10.0-20.0 [facility] [address] [facility] 51278 BUN/Creatinine Ratio November 29, 2021 1:11pm 27.8 10.0-20.0 [facility] [address] [facility] 44437 Glucose Level November 16, 2021 5:35am 97 mg/dL 70-100 [facility] [address] [place] [address] 20359 Glucose Level November 21, 2021 5:09pm 114 mg/dL 70-100 [facility] [address] [place] [address] 95155 Glucose Level November 29, 2021 1:11pm 111 mg/dL 70-100 [facility] [address] [place] [address] 87800 Calcium Level November 16, 2021 5:35am 9.6 mg/dl 8.6-10.3 [facility] [address] [place] [address] 18827 Calcium Level November 21, 2021 5:09pm 10.0 mg/dl 8.6-10.3 [facility] [address] [place] [address] 07705 Calcium Level November 29, 2021 1:11pm 9.6 mg/dl 8.6-10.3 [facility] [address] [place] [address] 12300 Magnesium Level November 16, 2021 5:35am 2.5 mg/dL 1.8-2.5 [facility] [address] [place] [address] 89235 Total Bilirubin November 14, 2021 3:16pm < 0.2 mg/dl <1.1 [facility] [address] [place] [address] 19954 Aspartate Amino Transf (AST/SGOT) November 14, 2021 3:16pm 19 U/L 15-41 [facility] [address] [place] [address] 08467 Alanine Aminotransferase (ALT/SGPT) November 14, 2021 3:16pm 12 U/L 14-54 [facility] [address] [place] [address] 12226 Troponin T High Sensitivity November 13, 2021 [...] the JESUS score for the inpatient setting). [facility] [address] [place] [address] 69477 Troponin T High Sensitivity November 21, 2021 [...] the JESUS score for the inpatient setting). [facility] [address] [place] [address] 85482 Troponin T High Sensitivity November 29, 2021 [...] the JESUS score for the inpatient setting). [facility] [address] [place] [address] 23101 UC-Noq-E-Type Natriuretic Peptide November 13, 2021 9:45pm 153 pg/mL 0-900 The half-life of plasma BNP is significantly increased in patients with compromised renal function. [facility] [address] [place] [address] 14042 Total Protein November 14, 2021 3:16pm 7.6 g/dL 6.4-8.3 [facility] [address] [place] [address] 91449 Albumin November 14, 2021 3:16pm 3.5 g/dl 4.0-5.0 [facility] [address] [place] [address] 80488 Albumin/Globulin Ratio November 14, 2021 3:16pm 0.9 1.0-2.6 [facility] [address] [place] [address] 69730 Triglycerides Level November 14, 2021 3:16pm 179 mg/dL <150 151 - 199 mg/dL = Borderline High [facility] [address] [place] [address] 52685 Cholesterol Level November 14, 2021 3:16pm 189 mg/dl <199 <200 mg/dL = Desirable [facility] [address] [place] [address] 63618 LDL Cholesterol, Calculated November 14, 2021 3:16pm 117 mg/dl <129 [facility] [address] [place] [address] 57692 HDL Cholesterol November 14, 2021 3:16pm 36 mg/dL >40 < 40 mg/dl: Low HDL-cholestero l(major risk factor for CHD) >/= 60 mg/dl: High HDL-cholestero l(negative risk factor for CHD) HDL-cholestero l is affected by a number of factors, e.g., smoking, excercise, hormones, sex and age. [facility] [address] [place] [address] 35790 Cholesterol Ratio (LDL/HDL) November 14, 2021 3:16pm 3.3 LDL/HDL Interpretation : Ratio Men Women 1/2 Average 1.00 1.47 Average 3.55 3.22 2X Average 6.25 5.03 3X Average 7.99 6.14 [facility] [address] [place] [address] 62813 Cholesterol/HDL Ratio November 14, 2021 3:16pm 5.3 Cholesterol/HD L Interpretation : Ratio Men Women 1/2 Average 3.43 3.27 Average 4.97 4.44 2X Average 9.55 7.05 3X Average 23.39 11.04 [facility] [address] [place] [address] 03803 Alkaline Phosphatase November 14, 2021 3:16pm 47 U/L 35-104 [facility] [address] [place], [place] [id number] Thyroid Stimulating Hormone (Reflex November 14, 2021 3:16pm 1.95 uIU/mL 0.34-5.60 [facility] [address] [place] [address] 67224 Bedside Glucose November 15, 2021 8:35pm 133 mg/dl 70-100 NOTE: Any discrepancy between finger stick glucose result and patient's clinical presentation should be confirmed by the laboratory. [facility] [address] [place] [address] 28902 Bedside Glucose November 21, 2021 4:52pm 112 mg/dl 70-100 NOTE: Any discrepancy between finger stick glucose result and patient's clinical presentation should be confirmed by the laboratory. [facility] [address] [facility] [address] Microbiology Results Procedure Source Result Collection Date/Time Result Date/Time Result Comment Performing Site Urine Culture Urine,Miri n Catch Mixed janis November 16, 2021 9:36am [facility] [address] [facility] [address] Diagnostic Imaging Reports Report Dictated Date/Time Dictated By Status Radiology Report November 13, 2021 10:32pm Italia Bales MD completed [facility] [address] [place] [address] Patient Name: Alysa Luevano Medical Record#: [id number] 1 Address: [address] [place] [address] City/State/Zip: [place] [address]: Rhonda Rodrigues MD [facility] ([facility]) /Age/Sex: 1960/61/F Self Pay Admit/Reg Date: 11/13/[address]: Juvenal Fritz Location: ED.[facility]/ PCP: Agata Reza MD Date of Service: 11/13/21 Order (s): XR chest 1V portable CPT Code: 06232 Report Number: [id number] Reason for Exam: Chest Pain PROCEDURE INFORMATION: [...] By: Italia Bales MD 11/13/212231 TD/TT: 11/13/212231Tech: [id number] cc: ANTHONY RAMIREZ* Agata Rzea MD; Reyna Rodrigues MD Report Dictated Date/Time Dictated By Status Radiology Report November 13, 2021 11:42pm Italia Bales MD completed [facility] [address] [place] [address] Patient Name: Alysa Luevano Medical Record#: [id number] 1 Address: [address] [place] [address] City/State/Zip: [place] [address]: Rhonda Rodrigues MD Insurance: [facility] (Medicaid) /Age/Sex: 1960/61/F Self Pay Admit/Reg Date: 11/13/[address]: Juvenal Fritz Location: ED.[facility]/ PCP: Agata Reza MD Date of Service: 11/13/21 Order (s): CT head stroke wo contrast CPT Code: 70087 Report Number: [id number] Reason for Exam: R sided numbness, TIA [...] 13, 2021 11:43pm [place] [address] Patient Name: Alysa Luevano Medical Record#: [id number] 1 Address: [address] [place] [address] City/State/Zip: [place] [address]: Rhonda Rodrigues MD Insurance: [facility] (Medicaid) /Age/Sex: 1960/61/F Self Pay Admit/Reg Date: 11/13/[address]: Juvenal Fritz Location: ED.[facility]/ PCP: Agata Reza MD Date of Service: 11/13/21 Order (s): CT angio neck stroke CPT Code: 63250 Report Number: [id number] Reason for Exam: R sided numbness, TIA [...] 14, 2021 12:24am Italia Bales MD completed [address] [address] Patient Name: Alysa Luevano Medical Record#: [id number] 1 Address: [address] [place] [address] City/State/Zip: [place] [address]: Rhonda Rodrigues MD Insurance: [facility] (Medicaid) /Age/Sex: 1960/61/F Self Pay Admit/Reg Date: 11/13/[address]: Juvenal Fritz Location: ED.[facility]/ PCP: Agata Reza MD Date of Service: 11/13/21 Order (s): CT angio head stroke CPT Code: 13991 Report Number: [id number] Reason for Exam: R sided numbness, TIA [...] 11/14/21 0024 Signed By: Italia Bales MD 11/14/21 0024 TD/TT: 11/14/21 0024Tech: [id number] cc: ANTHONY RAMIREZ* Agata Reza MD; Reyna Rodrigues MD Report Dictated Date/Time Dictated By Status Echocardiogram November 14, 2021 8:01am Jen[place] [address] Patient Name: Alysa Luevano Medical Record#: [id number] 1 Address: [address] [place] [address] City/State/Zip: [place] [address]: Chad Naqvi MD Insurance: [facility] (Medicaid) /Age/Sex: 1960/61/F Self Pay Admit/Reg Date: 11/14/[address]: Demarcus Grigsby [id number] P[facility]: Agata Reza MD Date of Service: 11/14/21 Order (s): Echo TTE comp w/dop w contrast CPT Code: C8929 Report Number: [id number] Reason for Exam: tia Transthoracic Echocardiography Report (TTE) Demographics Patient Name Bassem Watt Gender Female MR Number [id number] Date of 1960 Age 61 year(s) Room Number GL2229 Height 66 inches Date of study 11/14/2021 Weight 280.01 pounds Referring BSA 2.31 m^2 Interpreting MD Jeniffer Guardado MD BMI 45.19 kg/m^2 Fellow [employer] Dia 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 Mild mitral regurgitation. No aortic stenosis. No aortic regurgitation. The aortic valve is not well visualized. Vyei-so-yqxmconp tricuspid regurgitation. Pulmonary artery systolic pressure is [...] valve is not well visualized. TRICUSPID VALVE: Txzk-lk-yknoskkz tricuspid regurgitation. Pulmonary artery systolic pressure is [...] Guardado MD 11/14/21 164 TD/TT: 11/14/21 08Tech: [facility] cc: TESSIE; KRISTIN; ASHLEY* Demarcus Grigsby MD; Agata Reza MD; Jeniffer Guardado MD Report Dictated Date/Time Dictated By Status Radiology Report November 15, 2021 9:36am Jose Alberto Bangura MD completed [address] [address] Patient Name: Alysa Luevano Medical Record#: [id number] 1 Address: [address] [place] [address] City/State/Zip: [place] [address]: Chad Naqvi MD Insurance: [facility] (Medicaid) /Age/Sex: 1960/61/F Self Pay Admit/Reg Date: 11/14/[address]: Demarcus Grigsby MD Location: [address] PCP: Agata Reza MD Date of Service: 11/15/21 Order (s): MR head/brain wo contrast CPT Code: 86780 Report Number: [id number] Reason for Exam: tia ADDENDUM Impression to Dr. Chalo Naqvi on November 15, 2021 at 12:32 PM by [facility]. Addendum Dictated By: Jose Alberto Bangura [...] Alberto Bangura MD 11/15/21 0947 TD/TT: 11/15/21935Tech: [id number] cc: TESSIE; LUIS RAMIREZ* Demarcus Grigsby MD; Agata Reza MD; Taina Naqvi MD Report Dictated Date/Time Dictated By Status Electrocardiogram November 15, 2021 7:22pm Jeniffer Guardado MD [place] [address] Patient Name: Alysa Luevano Medical Record#: [id number] 1 Address: [address] [place] [address] City/State/Zip: [place] [address]: Chad Naqvi MD Insurance: [employer] (Medicaid) /Age/Sex: 1960/61/F Self Pay Admit/Reg Date: 11/15/[address]: Juvenal Dubon [id number] PCP: Agata Reza MD Date of Service: 11/15/21 Order (s): EKG Electrocardiogram CPT Code: 83483 Report Number: [id number] Reason for Exam: PAIN JUNCTIONAL BRADYCARDIA with PACs Comparison Summary: No serial comparison made Summary: Abnormal ECG Dictated By: Jeniffer Guardado MD 11/15/211921 Signed By: Jeniffer Guardado MD 11/16/212047 TD/TT: 11/15/211921Tech: [email or web address] cc: LUIS RAMIREZ* Agtaa Reza MD; Taina Naqvi MD Report Dictated Date/Time Dictated By Status Radiology Report November 21, 2021 6:30pm [place] [address] Patient Name: Alysa Luevano Medical Record#: [id number] 1 Address: [address] [place] [address] City/State/Zip: [place] [address]: Haja Alcantara MD Insurance: [employer] (Medicaid) /Age/Sex: 1960/61/F Self Pay Admit/Reg Date: 11/21/[address]: Carroll castellon MD Location: [facility]/ PCP: Agata Reza MD Date of Service: 11/21/21 Order (s): CT head/brain wo contrast CPT Code: 82548 Report Number: [id number] Reason for Exam: headache, recent CVa, right [...] 29, 2021 1:29pm Geo Gamble MD completed [address] [address] Patient Name: Alysa Luevano Medical Record#: [id number] 1 Address: [address] [place] [address] City/State/Zip: [place] [address]: Rhonda Rodrigues MD Insurance: [employer] (Medicaid) /Age/Sex: 1960/61/F Self Pay Admit/Reg Date: 11/29/[address]: Juvenal Fritz Location: ED.[facility]/ PCP: Agata Reza MD Date of Service: 11/29/21 Order (s): XR chest 1V portable CPT Code: 50416 Report Number: [id number] Reason for Exam: chest pain PROCEDURE: XR [...] Gamble MD 11/29/21 1334 TD/TT: 11/29/21 1329Tech: [id number] cc: ANTHONY RAMIREZ* Agata Reza MD; Reyna Rodrigues MD Report Dictated Date/Time Dictated By Status Radiology Report November 29, 2021 1:46pm Amaury cuba MD completed [address] [address] Patient Name: Alysa Luevano Medical Record#: [id number] 1 Address: [address] [place] [address] City/State/Zip: [place] [address]: Rhonda Rodrigues MD Insurance: [facility] (Medicaid) /Age/Sex: 1960/61/F Self Pay Admit/Reg Date: 11/29/[address]: Juvenal Fritz Location: ED.[facility]/ PCP: Agata Reza MD Date of Service: 11/29/21 Order (s): CT head/brain wo contrast CPT Code: 49135 Report Number: [id number] Reason for Exam: known stroke, ?worsening r [...] Simpson MD 11/29/21 1401 TD/TT: 11/29/21 1346Tech: [id number] cc: ANTHONY RAMIREZ* Agata Reza MD; Reyna [...] Insurance Providers Guarantor Alysa Luevano Address [address] [address] Contact Info. Home Phone: Payer Policy Id Coverage Id Subscriber's Name Subscriber Id Effective Date Expiration Date [facility] (Medicaid) [id number] Alysa Luevano [id number] Encounters Encounter Location(s) Arrival/Admit Date Discharge/Depart Date Provider(s) Discharged Inpatient [facility] November 15, 2021 10:43am November 17, 2021 12:23pm Taina Naqvi MD Departed Emergency [facility] November 21, 2021 4:16pm November 21, 2021 8:18pm null Departed Emergency [facility] November 29, 2021 12:53pm November 29, 2021 5:56pm null Departed Emergency [facility] December 01, 2021 2:40pm December 01, 2021 [...] November 17 11:41am Comprehension Ability Understands Concepts [facility] [place] 2021 11:41am Level of Consciousness Awake [...] months Rachna Norris MD Work Phone: [address] [facility] [address] Agata Reza MD Work Phone: [address] [address] Agata Reza MD Work Phone: [address] [address] Agata Reza MD Work Phone: [address] [address] Agata Reza MD Work Phone: [address] [address] Future Procedures Procedure Name Scheduled Date Hospital [...]
--- OUTSIDE RECORDS SUMMARY | 2022-08-06 05:07 | XMS_ITS | Continuity of Care Document ---
Author Name Unknown Address [address] [place] [address] Phone Organization [facility] Address [address] [place] [address] Phone Care Team Providers Care Sediment Remediation Consultant Name Role Phone MD Agata Reza Primary Care Provider MD Quinton [facility] Emergency Provider MD Ravi [place] [facility] Provider [phone] MD Seb [place] Attending Provider [phone] Chief Complaint and Reason for Visit Chief Complaint ?CvA, headache dizzy TIA Allergies, Adverse Reactions, Alerts Allergen Type Severity [...] Services Prior to Admission Home Health Aide [facility] 2021 1:03pm Living Situation [facility] 2021 4:42pm Living Situation Apartment November 29, [...] Instructions Cetirizine Active 10 MG PO DAILY [facility] 2021 12:00am Metoprolol Succinate Active 200 MG PO DAILY [facility] 2021 12:00am Chlorthalidon e Discontin ued 25 MG PO DAILY [facility] [place] 12:[place]am [facility] [place] 2021 12:44a m Chlorthalidon e Active 75 MG PO DAILY [facility] 2021 12:00am Acetaminophen Active 500 MG PO DAILY [facility] 2021 12:00am Pantoprazole Active 40 MG PO DAILY [facility] 2021 12:00am Omeprazole Active 20 MG PO DAILY [facility] 2021 12:00am Verapamil Active 240 MG PO DAILY [facility] 2021 12:00am Fluticasone Propionate (Flovent Hfa) 220 mcg/actuation HFA aerosol inhaler Active 1 INH INH TWICE A DAY [facility] 2021 12:00am Albuterol Sulfate (Proair Hfa) 90 mcg/actuation HFA aerosol inhaler Active 1 INH INH EVERY 6 HOURS [facility] 2021 12:00am Lisinopril Active 40 MG PO DAILY [facility] 2021 12:00am Topiramate Active 100 MG PO DAILY [facility] 2021 12:00am Rosuvastatin Active 20 MG PO DAILY [facility] 2021 12:00am Bupropion Hcl Active 300 MG PO DAILY [facility] 2021 12:00am Cholecalcifer ol (Vitamin D3) (Vitamin D3) 125 mcg (5,000 unit) tablet Active 125 MCG PO DAILY [facility] 2021 12:00am Acetaminophen Active 650 MG PO THREE TIMES A DAY [facility] 2021 12:00am Clopidogrel Active 75 MG PO DAILY [facility] 2021 12:00am Procedures Procedure Date Performed Status EKG ED Electrocardiogram November 21, 2021 4: 46pm completed CT head/brain wo contrast November 21, 2021 5 :14pm completed CT head/brain wo contrast November 29, 2021 1 2:53pm completed EKG ED Electrocardiogram November 29, 2021 12 :54pm completed XR chest 1V portable Maggie 21st, 2022 12:54p m completed Relevant Diagnostic Tests and/or Laboratory Data Laboratory Results Test Date/Time Result Interpretation Reference Range Result Comment Performing Site White Blood Count November 21, 2021 5:09pm 13.5 X10 3/uL 4.5-11.0 [facility] [address] [place] [address] 57194 White Blood Count November 29, 2021 1:11pm 9.6 X10 3/uL 4.5-11.0 [facility] [address] [place] [address] 37140 Red Blood Count November 21, 2021 5:09pm 4.70 X10 6/uL 3.70-5.00 [facility] [address] [place] [address] 91982 Red Blood Count November 29, 2021 1:11pm 4.55 X10 6/uL 3.70-5.00 [facility] [address] [place] [address] 19862 Hemoglobin November 21, 2021 5:09pm 13.9 g/dl 11.0-16.0 [facility] [address] [place] [address] 38094 Hemoglobin November 29, 2021 1:11pm 13.3 g/dl 11.0-16.0 [facility] [address] [place] [address] 65975 Hematocrit November 21, 2021 5:09pm 42.3 % 33.5-45.0 [facility] [address] [place] [address] 51719 Hematocrit November 29, 2021 1:11pm 41.1 % 33.5-45.0 [facility] [address] [place] [address] 36111 Mean Corpuscular Volume November 21, 2021 5:09pm 90.0 fl 80.0-100.0 [facility] [address] [place] [address] 03267 Mean Corpuscular Volume November 29, 2021 1:11pm 90.3 fl 80.0-100.0 [facility] [address] [place] [address] 26710 Mean Corpuscular Hemoglobin November 21, 2021 5:09pm 29.6 pg 27.0-34.0 [facility] [address] [place] [address] 83970 Mean Corpuscular Hemoglobin November 29, 2021 1:11pm 29.2 pg 27.0-34.0 [facility] [address] [place] [address] 42728 Mean Corpuscular Hemoglobin Concent November 21, 2021 5:09pm 32.9 g/dl 31.0-36.0 [facility] [address] [place] [address] 70303 Mean Corpuscular Hemoglobin Concent November 29, 2021 1:11pm 32.4 g/dl 31.0-36.0 [facility] [address] [place] [address] 18262 Red Cell Distribution Width November 21, 2021 5:09pm 13.8 % 11.5-15.0 [facility] [address] [place] [address] 66752 Red Cell Distribution Width November 29, 2021 1:11pm 13.3 % 11.5-15.0 [facility] [address] [place] [address] 46646 Platelet Count November 21, 2021 5:09pm 404 X10 3/uL 150-400 [facility] [address] [place] [address] 42728 Platelet Count November 29, 2021 1:11pm 339 X10 3/uL 150-400 [facility] [address] [place] [address] 41805 Immature Granulocyte % (Auto) November 21, 2021 5:09pm 0.7 % [facility] [address] [place] [address] 34559 Immature Granulocyte % (Auto) November 29, 2021 1:11pm 0.6 % [facility] [address] [place] [address] 76721 Neutrophils (%) (Auto) November 21, 2021 5:09pm 70.0 % [facility] [address] [place] [address] 50211 Neutrophils (%) (Auto) November 29, 2021 1:11pm 73.9 % [facility] [address] [place] [address] 82725 Lymphocytes (%) (Auto) November 21, 2021 5:09pm 21.6 % [facility] [address] [place] [address] 82374 Lymphocytes (%) (Auto) November 29, 2021 1:11pm 17.5 % [facility] [address] [facility] [address] Monocytes (%) (Auto) November 21, 2021 5:09pm 6.7 % [facility] [address] [place] [address] 03850 Monocytes (%) (Auto) November 29, 2021 1:11pm 6.6 % [facility] [address] [place] [address] 56636 Eosinophils (%) (Auto) November 21, 2021 5:09pm 0.6 % [facility] [address] [place] [address] 86716 Eosinophils (%) (Auto) November 29, 2021 1:11pm 0.8 % [facility] [address] [place] [address] 66672 Basophils (%) (Auto) November 21, 2021 5:09pm 0.4 % [facility] [address] [place] [address] 24786 Basophils (%) (Auto) November 29, 2021 1:11pm 0.6 % [facility] [address] [place] [address] 32727 Immature Granulocyte # (Auto) November 21, 2021 5:09pm 0.10 X10 3/uL 0.00-0.09 [facility] [address] [place] [address] 07455 Immature Granulocyte # (Auto) November 29, 2021 1:11pm 0.06 X10 3/uL 0.00-0.09 [facility] [address] [place] [address] 36746 Neutrophils # (Auto) November 21, 2021 5:09pm 9.4 X10 3/uL 1.5-7.8 [facility] [address] [place] [address] 41136 Neutrophils # (Auto) November 29, 2021 1:11pm 7.1 X10 3/uL 1.5-7.8 [facility] [address] [place] [address] 95776 Lymphocytes # (Auto) November 21, 2021 5:09pm 2.9 X10 3/uL 1.0-4.8 [facility] [address] [place] [address] 06324 Lymphocytes # (Auto) November 29, 2021 1:11pm 1.7 X10 3/uL 1.0-4.8 [facility] [address] [place] [address] 33525 Monocytes # (Auto) November 21, 2021 5:09pm 0.9 X10 3/uL 0.0-0.8 [facility] [address] [place] [address] 81230 Monocytes # (Auto) November 29, 2021 1:11pm 0.6 X10 3/uL 0.0-0.8 [facility] [address] [place] [address] 52965 Eosinophils # (Auto) November 21, 2021 5:09pm 0.1 X10 3/uL 0.0-0.5 [facility] [address] [place] [address] 88812 Eosinophils # (Auto) November 29, 2021 1:11pm 0.1 X10 3/uL 0.0-0.5 [facility] [address] [place] [address] 57561 Basophils # (Auto) November 21, 2021 5:09pm 0.1 X10 3/uL 0.0-0.2 [facility] [address] [place] [address] 03099 Basophils # (Auto) November 29, 2021 1:11pm 0.1 X10 3/uL 0.0-0.2 [facility] [address] [place] [address] 59358 Nucleated Red Blood Cells % November 21, 2021 5:09pm 0.0 /100 WBC 0.0-0.0 [facility] [address] [place] [address] 03461 Nucleated Red Blood Cells % November 29, 2021 1:11pm 0.0 /100 WBC 0.0-0.0 [facility] [address] [place] [address] 83943 Urine Color November 29, 2021 2:28pm Yellow Yellow [facility] [address] [place] [address] 17347 Urine Clarity November 29, 2021 2:28pm Clear Clear [facility] [address] [place] [address] 73285 Urine pH November 29, 2021 2:28pm 6.5 5.0-8.0 [facility] [address] [place] [address] 08479 Urine Specific [place] November 29, 2021 2:28pm <= 1.005 1.005-1.030 [facility] [address] [facility] [address] Urine Blood November 29, 2021 2:28pm Negative mg/dL Negative [facility] 95683 Urine Protein November 29, 2021 2:28pm Negative mg/dL Negative [facility] [address] [place] [address] 51578 Urine Glucose (UA) November 29, 2021 2:28pm Negative mg/dl Negative [facility] [address] [place] [address] 88636 Urine Ketones November 29, 2021 2:28pm Negative mg/dL Negative [facility] [address] [place] [address] 54209 Urine Nitrate November 29, 2021 2:28pm Negative Negative [facility] [address] [place] [address] 08877 Urine Bilirubin November 29, 2021 2:28pm Negative mg/dL Negative [facility] [address] [place] [address] 32833 Urine Urobilinogen November 29, 2021 2:28pm 1.0 E.U./dL Normal [facility] [address] [place] [address] 99974 Urine Leukocyte Esterase November 29, 2021 2:28pm Negative mg/dL Negative [facility] [address] [place] [address] 98354 Sodium Level November 21, 2021 5:09pm 135 mmol/L 137-146 [facility] [address] [place] [address] 42858 Sodium Level November 29, 2021 1:11pm 135 mmol/L 137-146 [facility] [address] [place] [address] 94515 Potassium Level November 21, 2021 5:09pm 4.7 mmol/L 3.5-5.3 [facility] [address] [place] [address] 62679 Potassium Level November 29, 2021 1:11pm 4.3 mmol/L 3.5-5.3 [facility] [address] [place] [address] 68954 Chloride Level November 21, 2021 5:09pm 101 mmol/L 98-107 [facility] [address] [place] [address] 89193 Chloride Level November 29, 2021 1:11pm 100 mmol/L 98-107 [facility] [address] [facility] 78743 Carbon Dioxide Level November 21, 2021 5:09pm 22 mmol/L 23-32 [facility] [address] [facility] 43428 Carbon Dioxide Level November 29, 2021 1:11pm 22 mmol/L 23-32 [facility] [address] [facility] 732[address] Anion Gap November 21, 2021 5:09pm 12 mmol/L 5-15 [facility] [address] [facility] 90694 Anion Gap November 29, 2021 1:11pm 13 mmol/L 5-15 [facility] [address] [facility] 40701 Blood Urea Nitrogen November 21, 2021 5:09pm 49 mg/dl - [facility] [address] [facility] 35701 Blood Urea Nitrogen November 29, 2021 1:11pm 25 mg/dl - [facility] [address] [facility] 75654 Creatinine November 21, 2021 5:09pm 1.3 mg/dL 0.5-1.1 [facility] [address] [facility] 06763 Creatinine November 29, 2021 1:11pm 0.9 mg/dL 0.5-1.1 [facility] [address] [facility] 42106 Estimated Creatinine Clearance November 21, 2021 5:09pm 56.8 ml/min This value is calculated by Cockcroft Gault Equation using ideal body weight. This result is dependent on an accurate patient height and weight which is obtained from patients medical record. [employer], D.W. and M.H. Gault. Prediction of creatinine clearance from serum creatinine. Nephron. 1976. 16(1):31-41. [facility] [address] [facility] 54579 Estimated Creatinine Clearance November 29, 2021 1:11pm 74.8 ml/min This value is calculated by Cockcroft Gault Equation using ideal body weight. This result is dependent on an accurate patient height and weight which is obtained from patients medical record. [employer], D.W. and M.H. Gault. Prediction of creatinine clearance from serum creatinine. Nephron. 1976. 16(1):31-41. [facility] [address] [facility] [address] Estimated GFR () November 21, 2021 5:09pm 51 >60 [facility] [address] [facility] 15623 Estimated GFR () November 29, 2021 1:11pm 79 >60 [facility] [address] [facility] 90354 Estimated GFR (Non- November 21, 2021 5:09pm 44 >60 [facility] [address] [facility] 67649 Estimated GFR (Non- November 29, 2021 1:11pm 68 >60 [facility] [address] [facility] 74365 BUN/Creatinine Ratio November 21, 2021 5:09pm 37.7 10.0-20.0 [facility] 97831 BUN/Creatinine Ratio November 29, 2021 1:11pm 27.8 10.0-20.0 [facility] [address] [facility] 34401 Glucose Level November 21, 2021 5:09pm 114 mg/dL 70-100 [facility] 64783 Glucose Level November 29, 2021 1:11pm 111 mg/dL 70-100 [facility] 26515 Calcium Level November 21, 2021 5:09pm 10.0 mg/dl 8.6-10.3 [facility] 20692 Calcium Level November 29, 2021 1:11pm 9.6 mg/dl 8.6-10.3 [facility] [address] [place] [address] 99357 Troponin T High Sensitivity November 21, 2021 [...] 3 hours indicates of acute myocardial injury/infarc tion. For a patient with an estimated GFR [...] onset, generally rules out acute myocardial injury/infarc tion. Refer to Chest Pain order sets for additional clinical decision support (using the HEART score for the ED or the JESUS score for the inpatient setting). [facility] [address] [facility] [address] Troponin T High Sensitivity November 29, 2021 [...] 3 hours indicates of acute myocardial injury/infarc tion. For a patient with an estimated GFR [...] onset, generally rules out acute myocardial injury/infarc tion. Refer to Chest Pain order sets for additional clinical decision support (using the HEART score for the ED or the JESUS score for the inpatient setting). [facility] [address] [facility] [address] Bedside Glucose November 21, 2021 4:52pm 112 mg/dl 70-100 NOTE: Any discrepancy between finger stick glucose result and patient's clinical presentation should be confirmed by the laboratory. [facility] [address] Diagnostic Imaging Reports Report Dictated Date/Time Dictated By Status Radiology Report November 21, 2021 6:30pm Emmanuel La MD completed [facility] [address] [place] [address]38 Patient Name: Alysa Luevano Medical Record#: [id number] 1 Address: [address] [place] [address] City/State/Zip: [place] [address]: Haja Alcantara MD Insurance: [facility] (Medicaid) /Age/Sex: 1960/61/F Self Pay Admit/Reg Date: 11/21/[address]: Carroll castellon MD Location: ED.AH/ PCP: Agata Reza MD Date of Service: 11/21/21 Order (s): CT head/brain wo contrast CPT Code: 25005 Report Number: [id number] Reason for Exam: headache, recent CVa, right [...] 29, 2021 1:29pm Geo Gamble MD completed [address] [address] Patient Name: Alysa Luevano Medical Record#: [id number] 1 Address: [address] [place] [address] City/State/Zip: [place] [address]: Rhonda Rodrigues MD Insurance: [facility] et (Medicaid) /Age/Sex: 1960/61/F Self Pay Admit/Reg Date: 11/29/[address]: Juvenal Fritz Location: ED.AH/ PCP: Agata Reza MD Date of Service: 11/29/21 Order (s): XR chest 1V portable CPT Code: 81977 Report Number: [id number] Reason for Exam: chest pain PROCEDURE: XR [...] pulmonary disease.. Dictated By: Geo Gamble MD 11/29/21 1329 Signed By: Geo Gamble MD 11/29/21 1334 TD/TT: 11/29/21 1329Tech: [id number] cc: CYNTHIA; ASHLEY* Agata Reza MD; Reyna Rodrigues MD Report Dictated Date/Time Dictated By Status Radiology Report November 29, 2021 1:46pm Amaury cuba MD completed [address] [address] Patient Name: Alysa Luevano Medical Record#: [id number] 1 Address: [address] [place] [address] City/State/Zip: [place] [address]: Rhonda Rodrigues MD [facility] [employer] [facility] /Age/Sex: 1960/61/F Self Pay Admit/Reg Date: 11/29/[address]: Juvenal Fritz Location: ED.AH/ PCP: Agata Reza MD Date of Service: 11/29/21 Order (s): CT head/brain wo contrast CPT Code: 84237 Report Number: [id number] Reason for Exam: known stroke, ?worsening r [...] Simpson MD 11/29/21 1401 TD/TT: 11/29/21 1346Tech: [id number] cc: CYNTHIA; ASHLEY* Agata Reza MD; Reyna Rodrigues MD Vital Signs Vital Reading Result Reference Range Collection Date/Time Height 157.48 cm November 21, 2021 4:29pm [...] 4:40pm BMI (Body Mass Index) 46.6 kg/m2 Sept2021 2:47pm Advance Directives Advance Directive Response Recorded [...] 2:41pm Insurance Providers Guarantor Alysa Luevano Address [address] [place] [address] Contact Info. Home Phone: Payer Policy Id Coverage Id Subscriber's Name Subscriber Id Effective Date Expiration Date [facility] (Medicaid) [id number] Alysa Luevano [id number] Encounters Encounter Location(s) Arrival/Admit Date Discharge/Depart Date Provider(s) Departed Emergency [facility] November 21, 2021 4:16pm November 21, 2021 8:18pm null Departed Emergency [facility] November 29, 2021 12:53pm November 29, 2021 5:56pm null Departed Emergency [facility] December 01, 2021 2:40pm December 01, 2021 4:41pm null Departed Referred [facility] December 15, 2021 8:00am December 15, 2021 8:01am Demarcus Grigsby MD Mental Status Observation Response Date Recorded Patient Behavior Appropriate November 29, 2021 1:24pm Level of Consciousness Awake November 29, 2021 1:24pm Alert November 29, 2021 1:24pm Plan of Treatment Future Tests Future scheduled test information is unavailable Pending Tests Test Name Date ordered VTE Risk Assessment Medical November 3:09am Future Visits Future appointment information is unavailable Referrals to Other Providers Reason for Referral Referral Start Date Provider Provider Contact Information Provider Address 6 months Rachna Norris MD Work Phone: [address] [facility] [address] Agata Reza MD Work Phone: [address] [address] Agata Reza MD Work Phone: [address] [address] Agata Reza MD Work Phone: [address] [address] Agata Reza MD Work Phone: [address] [address] Future Procedures Procedure Name Scheduled Date Hospital [...] 3:09am Provider Order to Nurse November 14 10:30am Continuous Pulse Oximetry November 13, 2021 [...]
--- OUTSIDE RECORDS SUMMARY | 2022-08-06 05:07 | XMS_ITS | Continuity of Care Document ---
Author Name Unknown Address [address] [place] [address] Phone Organization [facility] Address [address] [place] [address] Phone Care Team Providers Care Retort Cooler Name Role Phone MD Agata Reza Primary Care Provider MD [facility] MD Jerson Ortegaysztof Other Provider MD [facility] Attending Provider [phone] Chief Complaint and Reason for Visit Chief [...] Prior to Admission Home Health Aide Iliana [facility] 2021 12:03pm Living Situation [facility] [employer] Specialist Care Facility [facility] 2021 3:42pm Living Situation Apartment November 29, 2021 12:14pm Living Situation Apartment December 01, 2021 1:58pm Living Situation Private Home April 03, 2 023 11:50am Services Prior to Admission Jonathon mireles 2022 3:34pm Lives With Spouse April 03 3:34pm Is Anyone Dependent on your Care? No January 29, 2022 2:14pm Living Situation Apartment January 29, 2022 2:14pm Additional Data Assigned Sex Female Problems [...] Cetirizine Discontin ued 10 MG PO DAILY [facility] 2021 11:00pm y 2022 4:22pm Metoprolol Succinate Discontin ued 200 MG PO DAILY [facility] 2021 11:00pm y 2022 4:22pm Chlorthalidon e Discontin ued 25 MG PO DAILY [facility] 2021 11:00pm Septem inessa 2021 11:44p m Chlorthalidon e Discontin ued 75 MG PO DAILY [facility] 2021 11:00pm y 2022 4:20pm Acetaminophen Active 500 MG PO TWICE A DAY [facility] 2021 11:00pm Pantoprazole Discontin ued 40 MG PO DAILY [facility] 2021 11:00pm y 2022 4:24pm Omeprazole Active 20 MG PO DAILY [facility] 2021 11:00pm Verapamil Discontin ued 240 MG PO DAILY [facility] 2021 11:00pm y 2022 10:28a m Fluticasone Propionate (Flovent Hfa) 220 mcg/actuation HFA aerosol inhaler Active 1 INH INH [facility] 2021 11:00pm Albuterol Sulfate (Proair Hfa) 90 mcg/actuation HFA aerosol inhaler Active 1 INH INH EVERY 6 HOURS [facility] 2021 11:00pm Lisinopril Active 40 MG PO DAILY [facility] 2021 11:00pm Topiramate Discontin ued 100 MG PO DAILY [facility] 2021 11:00pm Marua y 2022 4:24pm Rosuvastatin Discontin ued 20 MG PO DAILY [facility] 2021 11:00pm 2022 4:53pm Bupropion Hcl Discontin ued 300 MG PO DAILY [facility] 2021 11:00pm 2022 4:23pm Cholecalcifer ol (Vitamin D3) (Vitamin D3) 125 mcg (5,000 unit) tablet Active 125 MCG PO DAILY [facility] 2021 11:00pm Acetaminophen Discontin ued 650 MG PO THREE TIMES A DAY [facility] 2021 11:00pm 2022 4:22pm Clopidogrel Active 75 MG PO DAILY [facility] 2021 11:00pm Atorvastatin Active 40 MG PO DAILY 2022 12:00am Chlorthalidon e Discontin ued 25 MG PO DAILY April 02, 2022 12:00am 2022 10:29a m Rosuvastatin Active 10 MG PO DAILY 2022 12:00am Meclizine Active 12.5 MG PO THREE TIME S A DAY April 04, 2022 12:00am Amoxicillin-P ot Clavulanate Active 1 TAB PO EVERY 12 HOURS April 04, 2022 12:00am Chlorthalidon e Active 50 MG PO DAILY 0 1 April 04, 2022 10:29am Procedures Procedure Date Performed Status EKG ED Electrocardiogram April 02, 2022 1:[address] head/brain wo contrast April 02, 2022 1:5 1pm completed MR head/brain wo contrast April 03, 2022 10: 25am completed Echo TTE cmp w/dop wo contrast April 03 10:27am completed Relevant Diagnostic Tests and/or Laboratory Data Laboratory Results Test Date/Time Result Interpretation Reference Range Result Comment Performing Site White Blood Count April 04, 2022 5:38am 9.5 X10 3/uL 4.5-11.0 [facility] [id number] [address] [place] [address] Red Blood Count April 04, 2022 5:38am 4.05 X10 6/uL 3.70-5.00 [facility] [id number] [address] [place] [address]896 Hemoglobin April 04, 2022 5:38am 11.9 g/dl 11.0-16.0 [facility] [id number] [address] [facility] [address] Hematocrit April 04, 2022 5:38am 38.5 % 33.5-45.0 [facility] [id number] [address] [place] [address] 66104 Mean Corpuscular Volume April 04, 2022 5:38am 95.1 fl 80.0-100.0 [facility] [id number] [address] [place] [address] 74358 Mean Corpuscular Hemoglobin April 04, 2022 5:38am 29.4 pg 27.0-34.0 [facility] [id number] [address] [place] [address] 68483 Mean Corpuscular Hemoglobin Concent April 04, 2022 5:38am 30.9 g/dl 31.0-36.0 [facility] [id number] [address] [place] [address] 25035 Red Cell Distribution Width April 04, 2022 5:38am 12.2 % 11.5-15.0 [facility] [id number] [address] [place] [address] 15017 Platelet Count April 04, 2022 5:38am 345 X10 3/uL 150-400 [facility] [id number] [address] [place] [address] 26561 Immature Granulocyte % (Auto) April 02, 2022 1:58pm 1.1 % [facility] [id number] [address] [place] [address] 368[address] Neutrophils (%) (Auto) April 02, 2022 1:58pm 80.0 % [facility] [id number] [address] [place] [address] 47899 Lymphocytes (%) (Auto) April 02, 2022 1:58pm 13.4 % [facility] [id number] [address] [place] [address] 30209 Monocytes (%) (Auto) April 02, 2022 1:58pm 4.7 % [facility] [id number] [address] [facility] [address] Eosinophils (%) (Auto) April 02, 2022 1:58pm 0.3 % [facility] [id number] [address] [facility] [address] Basophils (%) (Auto) April 02, 2022 1:58pm 0.5 % [facility] [id number] [address] [place] [address] 83027 Immature Granulocyte # (Auto) April 02, 2022 1:58pm 0.14 X10 3/uL 0.00-0.09 [facility] [id number] [address] [place] [address] 99498 Neutrophils # (Auto) April 02, 2022 1:58pm 9.9 X10 3/uL 1.5-7.8 [facility] [id number] [address] [place] [address] 17831 Lymphocytes # (Auto) April 02, 2022 1:58pm 1.7 X10 3/uL 1.0-4.8 [facility] [id number] [address] [place] [address] 26097 Monocytes # (Auto) April 02, 2022 1:58pm 0.6 X10 3/uL 0.0-0.8 [facility] [id number] [address] [place] [address] 50978 Eosinophils # (Auto) April 02, 2022 1:58pm 0.0 X10 3/uL 0.0-0.5 [facility] [id number] [address] [place] [address] 11338 Basophils # (Auto) April 02, 2022 1:58pm 0.1 X10 3/uL 0.0-0.2 [facility] [id number] [address] [place] [address] 32035 Hemoglobin A1c April 03, 2022 6:50am 5.4 4.3-5.9 [facility] [id number] [address] [place] [address] 45261 Estimated Average Glucose (eAG) April 03, 2022 6:50am 108 mg/dl [facility] [id number] [address] [place], [place] [address] Nucleated Red Blood Cells % April 04, 2022 5:38am 0.0 /100 WBC 0.0-0.0 [facility] [id number] [address] [place] [address] Sodium Level April 04, 2022 5:35am 139 mmol/L 137-146 [facility] [id number] [address] [place] [address] Potassium Level April 04, 2022 5:35am 3.9 mmol/L 3.5-5.3 [facility] [id number] [address] [place] [address] Chloride Level April 04, 2022 5:35am 101 mmol/L 98-107 [facility] [id number] [address] [place] [address] Carbon Dioxide Level April 04, 2022 5:35am 28 mmol/L 23-32 [facility] [id number] [address] [place] [address] Anion Gap April 04, 2022 5:35am 10 mmol/L 5-15 [facility] [id number] [address] [place] [address] Blood Urea Nitrogen April 04, 2022 5:35am 15 mg/dl 5-25 [facility] [id number] [address] [place] [address] Creatinine April 04, 2022 5:35am 0.7 mg/dL 0.5-1.1 [facility] [id number] [address] [place] [address] Estimated Creatinine Clearance April 04, 2022 5:35am 100.7 ml/min This value is calculated by Cockcroft Gault Equation using ideal body weight. This result is dependent on an accurate patient height and weight which is obtained from patients medical record. Flyoflu[employer], D.W. and M.H. Gault. Prediction of creatinine clearance from serum creatinine. Nephron. 1976. 16(1):31-41. [facility] [id number] [address] [place] [address] Estimat Glomerular Filtration Rate April 04, 2022 5:35am 97 >90 Reported eGFR is based on the CKD-EPI 2020 equation that does not use a race coefficient. Additional information can be found at:04-20-8261 _icb_egfr_sum jair_[email or web address].p df (kidney.org) [facility] [id number] [address] [facility] [address] BUN/Creatinine Ratio April 04, 2022 5:35am 21.4 10.0-20.0 [facility] [id number] [address] [facility] [address] Glucose Level April 04, 2022 5:35am 84 mg/dL 70-100 [facility] [id number] [address] [facility] [address] Calcium Level April 04, 2022 5:35am 9.5 mg/dl 8.6-10.3 [facility] [id number] [address] [facility] [address] Magnesium Level April 04, 2022 5:35am 2.1 mg/dL 1.8-2.5 [facility] [id number] [address] [facility] [address] Troponin T High Sensitivity April 02, 2022 [...] for the inpatient setting). [facility] [id number] [address] [place] [address] 23233 Triglycerides Level April 03, 2022 6:50am 113 mg/dL <150 <=150 mg/dL = Desirable [facility] [id number] [address] [place] [address] Cholesterol Level April 03, 2022 6:50am 144 mg/dl <199 <200 mg/dL = Desirable [facility] [id number] [address] [place] [address] 60198 LDL Cholesterol, Calculated April 03, 2022 6:50am 88 mg/dl <129 [facility] [id number] [address] [place] [address] 47177 HDL Cholesterol April 03, 2022 6:50am 33 mg/dL >40 < 40 mg/dl: Low HDL-cholester ol(major risk factor for CHD)>/= 60 mg/dl: High HDL-cholester ol(negative risk factor for CHD)HDL-jluis sterol is affected by a number of factors, e.g., smoking, excercise, hormones, sex and age. [facility] [id number] [address] [place] [address] Cholesterol Ratio (LDL/HDL) April 03, 2022 6:50am 2.7 LDL/HDL Interpretatio n:Ratio Men Women1/2 Average 1.00 1.47Average 3.55 3.222X Average 6.25 5.033X Average 7.99 6.14 [facility] [id number] [address] [place] [address] 52850 Cholesterol/HDL Ratio April 03, 2022 6:50am 4.4 Cholesterol/H DL Interpretatio n: Ratio Men Women 1/2 Average 3.43 3.27 Average 4.97 4.44 2X Average 9.55 7.05 3X Average 23.39 11.04 [facility] [id number] [address] [place] [address] Vitamin B12 Level April 03, 2022 6:50am 406 pg/ml [phone] [facility] [id number] [address] [facility] [address] Thyroid Stimulating Hormone (Reflex April 03, 2022 6:50am 1.83 uIU/mL 0.34-5.60 [facility] [id number] [address] [place] [address] Diagnostic Imaging Reports Report Dictated Date/Time Dictated By Status Radiology Report April 02, 2022 2:31pm Iliana Daniels MD completed [facility] [address] [place] [address] Patient Name: Alysa Luevano Medical Record#: [id number] 1 Address: [address] [place] [address] City/State/Zip: [place] [address]: Haja Alcantara MD Insurance: [facility] (Medicaid) /Age/Sex: 1960/61/F Self Pay Admit/Reg Date: 04/02/[address]: Carroll castellon MD Location: ED.AH/ PCP: Agata Reza MD Date of Service: 04/02/22 Order (s): CT head/brain wo contrast CPT Code: 84557 Report Number: [id number] Reason for Exam: dizziness CT head/brain wo [...] MD 04/02/221430 Signed By: Iliana Daniels MD 04/02/22 1442 TD/TT: 04/02/22 143Tech: [id number] cc: MARISOL; ASHLEY* Agata Reza MD; Carroll Alcantara MD Report Dictated Date/Time Dictated By Status Radiology Report April 03, 2022 12:12pm Kevin Islas III, MD completed [address] [place] [address] Patient Name: Alysa Luevano Medical Record#: [id number] 1 Address: [address] [place] [address] City/State/Zip: [place] [address]: Ross Mejia MD Insurance: [facility] (Medicaid) /Age/Sex: 1960/61/F Self Pay Admit/Reg Date: 04/02/[address]: Vargas Ortega MD Location: [address] PCP: Agata Reza MD Date of Service: 04/03/22 Order (s): MR head/brain wo contrast CPT Code: 26200 Report Number: [id number] Reason for Exam: dizziness, new cva? EXAM: MRI HEAD WITHOUT CONTRAST HISTORY: New onset dizziness and headaches, clinical concern for acute stroke. COMPARISON: CT head dated 04/02/2022, 11/29/2021. MRI head dated 11/15/2021. TECHNIQUE: Sagittal T1, and axial T1, T2, FLAIR, GRE, and diffusion with ADC map images of the head were obtained without contrast. FINDINGS: There is no decreased diffusion to indicate an acute infarction. There is no evidence of acute or chronic intracranial hemorrhage, extra-axial fluid collection or significant mass effect. The major intracranial flow voids are present at the skull base. The ventricles, sulci and cisterns appear age-appropriate. A small chronic infarct is noted in the left thalamus. There are scattered foci of T2/FLAIR hyperintensity in the subcortical and periventricular white matter, a non- specific finding but likely reflecting the sequela of chronic microangiopathy. The cerebellopontine angle cisterns appear clear. The visualized paranasal sinuses appear clear. There is fluid in the left greater than right mastoid air cells, slightly increased since prior MRI from 11/15/2021, nonspecific. The orbits and soft tissues are unremarkable. IMPRESSION: 1. No acute infarct, intracranial hemorrhage or mass effect. 2. 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 3. Stable mild chronic microangiopathy. 4. Nonspecific fluid in the left greater than right mastoid air cells, slightly increased since 11/15/2021. Dictated By: Kevin Islas III, MD 04/03/22 121 Signed By: Kevin Islas III, MD 04/03/22 1224 TD/TT: 04/03/22 1212Tech: [email or web address] cc: ESTEFANIA; NICKO; ASHLEY* Roosevelt Mejia MD; Agata Reza MD; Vargas Ortega MD Report Dictated Date/Time Dictated By Status Echocardiogram April 03, 2022 1:37pm [place] [address] Patient Name: Alysa Luevano Medical Record#: [id number] 1 Address: [address] [place] [address] City/State/Zip: [place] [address]: Ross Mejia MD Insurance: [facility] (Medicaid) /Age/Sex: 1960/61/F Self Pay Admit/Reg Date: 04/03/[address]: Vargas Ortega MD Location: [address] PCP: Agata Reza MD Date of Service: 04/03/22 Order (s): Echo TTE cmp w/dop wo contrast CPT Code: 36695 Report Number: [id number] Reason for Exam: dizziness, risk of cva, previous cva Transthoracic Echocardiography Report (TTE) Demographics Patient Name Bassem Watt Gender Female MR Number [id number] Date of 1960 Age 61 year(s) Room Number FJ4942 Height 61 inches Date of study 04/03/2022 Weight 269.01 pounds Referring BSA 2.14 m^2 Interpreting MD Maryana Reeves MD BMI 50.83 kg/m^2 Fellow Pull[employer] [facility] Conclusions Summary Leaflets of mitral valve are mildly thickened. Mild mitral regurgitation. Mild mitral valve stenosis. Mean gradient 3mmHg. The aortic valve is not well visualized. No aortic stenosis. No aortic regurgitation. Trivial tricuspid regurgitation. Pulmonary artery systolic pressure is estimated to be mildly elevated (38 mmHg). The pulmonic valve is not well visualized. No pulmonary regurgitation. Left atrium is normal in size. LA ESV Index (BP) 25.7 ml/m2 Right atrium is normal in size. Hx of atrial shunt. Overall left ventricular systolic function is normal (LVEF 55 -60%). Left ventricular cavity is normal in size. No left ventricular hypertrophy. No regional wall motion abnormalities present. Diastolic function of the left ventricle is increased LAP Grade II Diastolic Dysfunction. Right ventricular structure and systolic function are normal. There is no pericardial effusion. Aorta: root (at sinuses of Valsalva) is normal in diameter, ascending aorta is normal in diameter. Inferior vena cava is normal (<18 mm) in diameter and collapses >50% on inspiration, which is consistent with right atrial pressure of 3 mm Hg. Findings MITRAL VALVE: Leaflets of mitral valve are mildly thickened. Mild mitral regurgitation. Mild mitral valve stenosis. Mean gradient 3mmHg. AORTIC VALVE: The aortic valve is not well visualized. No aortic stenosis. No aortic regurgitation. TRICUSPID VALVE: Trivial tricuspid regurgitation. Pulmonary artery systolic pressure is estimated to be mildly elevated (38 mmHg). PULMONIC VALVE: The pulmonic valve is not well visualized. No pulmonary regurgitation. ATRIA: Left atrium is normal in size. LA ESV Index (BP) 25.7 ml/m2 Right atrium is normal in size. Hx of atrial shunt. LEFT VENTRICLE: Overall left ventricular systolic function is normal (LVEF 55 -60%). Left ventricular cavity is normal in size. No left ventricular hypertrophy. No regional wall motion abnormalities present. Diastolic function of the left ventricle is increased LAP Grade II Diastolic Dysfunction. RIGHT VENTRICLE: Right ventricular structure and systolic function are normal. PERICARDIAL AND PLEURA: There is no pericardial effusion. MISCELLANEOUS: Aorta: root (at sinuses of Valsalva) is normal in diameter, ascending aorta is normal in diameter. Inferior vena cava is normal (<18 mm) in diameter and collapses >50% on inspiration, which is consistent with right atrial pressure of 3 mm Hg. Type of Study TTE procedure: Echo complete w doppler (MT 6.1). Technical Quality: Technically difficult study due to patient's body habitus.Study Location: Telemetry Indications: Dizziness - 780.4. Patient Status: Routine Atria LA Dimension: 4.1 cm LA/Aorta: 1.58 Left Ventricle Diastolic Dimension: 4.33 cm Systolic Dimension: 2.41 cm Septum Diastolic: 0.762 cm PW Diastolic: 0.749 cm FS: 44.34 % Right Ventricle RV Systolic Pressure: 38.18 mmHg Miscellaneous Aorta Aortic Root: 2.6 cm Ascending Aorta: 2.7 cm Mitral Valve Peak E-Wave: 126 cm/s Peak A-Wave: 123 cm/s E/A Ratio: 1.02 Peak Gradient: 6.35 mmHg Deceleration Time: 236 msec E' Medial Velocity: 8.88cm/s E/E' Medial Velocity: 14.2 E' Lateral Velocity: 7.71cm/s E/E' Lateral Velocity: 16.3 Aortic Valve Peak Velocity: 161.4 cm/s Mean Velocity: 115 cm/s Peak Gradient: 10.42 mmHg Mean Gradient: 6 mmHg AV VTI: 36.1 cm Tricuspid Valve TR Velocity: 288 cm/s Estimated RAP: 5 mmHg TR Gradient: 33.18 mmHg Pulmonic Valve Estimated PASP: 38.18 mmHg LVOT Mean Velocity: 73.5 cm/s Mean Gradient: 2 mmHg LVOT VTI: 21.5 cm Signature Dictated By: Maryana Reeves MD 04/03/22 1337 Signed By: Maryana Reeves MD 04/04/22 0947 TD/TT: 04/03/22 1337Tech: [id number] cc: NICKO; PANSA1; EVELINALKI* Agata Reza MD; Vargas Ortega MD; Maryana Reeves MD Vital Signs Vital Reading Result Reference Range Collection Date/Time Height 154.94 cm April 02, 023 10:51pm Weight 122.10 kg April 02 023 10:51pm Body Temperature 97.0 [degF] 97.6-99.6 March 9:13am Heart Rate 77 /min 60-90 April 04, 023 9:13am Respiratory rate 16 /min -March 9:13am Oxygen saturation by Pulse oximetry 99 % 95-100 April 04, 2022 1 0:04am BP Systolic 134 mm[Hg] 90-140 April 04, 023 9:13am BP Diastolic 71 mm[Hg] 60-90 April 04, 023 9:13am BMI (Body Mass Index) 50.9 kg/m2 Maruar y 2022 10:51pm Advance Directives Advance Directive Response Recorded Date/ [...] Care Proxy No April 03, 2022 3:34pm Pt has Medical Orders for Li fe Sustaining Tx Form (MOLST)? No April 03, 2022 3:34pm Advance Directives No January 12:23pm Health Care Proxy No January 29, 2022 12:23pm Insurance Providers Guarantor Alysa Luevano Address [address] [place] [address] Contact Info. Home Phone: Payer Policy Id Coverage Id Subscriber's Name Subscriber Id Effective Date Expiration Date [facility] (Medicaid) [id number] Alysa Luevano [id number] Encounters Encounter Location(s) Arrival/Admit Date Discharge/Depart Date Provider(s) Discharged [facility] April 03, 2022 3:10pm April 04, 2022 12:45pm Roosevelt Mejia MD Recent Diagnosis Onset Date Vertigo Functional Status Observation Response Date Recorded Assistive Devices Walker April 03, 2022 3:34pm Shower Chair April 03 3:34pm Ambulation Distance 200 March 11:50am Ambulation Tolerance Poor March 11:02am Oral Care Mouth Rinse April 03 9:13pm Toileting Ability Maximum Assistance March 11:50am Mental Status Observation Response Date Recorded Arousable To Normal for Patient April 04, 2022 11:50am Patient Behavior Appropriate April 04, 023 10:04am Cooperative April 04 10:04am Comprehension Ability Understands Concepts Janua 2022 10:04am Level of Consciousness Awake March 122022 10:04am Alert April 04 10:04am Appropriate April 04 10:04am Follows Commands April 04, 023 10:04am Assessments Diagnosis Onset Date Resolution Status Vertigo [...] 6 months Rachna Norris MD Work Phone: [address] [place] [address] Agata Reza MD Work Phone: [address] [address] Agata Reza MD Work Phone: [address] [address] Agata Reza MD Work Phone: [address] [address] Agata Reza MD Work Phone: [address] [address] Case Jameel Allen will call patient with appointment Agata Reza MD Work Phone: [address] [address] Agata Reza MD Work Phone: [phone] [address] Future Procedures Procedure Name Ordered Date Scheduled [...] 2:50pm Discharge November 17, 2021 9:43am [facility] 2021 9:43am ED Transfer of Care to [...] 8:21pm Activity April 02, 2022 3:30pm Januar y 2022 3:30pm Discharge April 04, 2022 [...] 2022 11:16p m April 02, 2022 11:16pm Future Medications Future medication information is unavailable [...] - Patient/caregivers participating in preventative measures Management Strategy-PT Management Strategy-OT Able to achieve maximum mobi lity level Including: - Understands safety - Demonstrates progress in improved mobility - Demonstrates correct use of mobility devices if appropriate - Understands & accepts limitations & plan for progression as appropriate Urinary elimination back to baseline Including: - Toileting schedule - Appropriate interventions as applicable
--- OUTSIDE RECORDS SUMMARY | 2022-08-06 05:07 | XMS_ITS | Continuity of Care Document ---
Author Name Unknown Address [address] [place] [address] Phone Organization [facility] Address [address] [place] [address] Phone Care Team Providers Care Early Morning Name Role Phone MD Agata Reza Primary Care Provider [facility] MD Jerson Ortegaysztof Other Provider [phone] MD [facility] Provider Chief Complaint and Reason for Visit [...] Prior to Admission Home Health Aide [facility] 2021 12:03pm Living Situation Program Counselor Care Facility [facility] 2021 3:42pm Living Situation Apartment November 29, 2021 12:14pm Living Situation Apartment December 01, 2021 1:58pm Living Situation Private Home April 03, 2 023 11:50am Services Prior to Admission Jonahton mireles 2022 3:34pm Lives With Spouse April [...] Cetirizine Discontin ued 10 MG PO DAILY [facility] 2021 11:00pm y 2022 4:22pm Metoprolol Succinate Discontin ued 200 MG PO DAILY [facility] 2021 11:00pm y 2022 4:22pm Chlorthalidon e Discontin ued 25 MG PO DAILY [facility] 2021 11:00pm Septem inessa 2021 11:44p m Chlorthalidon e Discontin ued 75 MG PO DAILY [facility] 2021 11:00pm y 2022 4:20pm Acetaminophen Active 500 MG PO TWICE A DAY [facility] 2021 11:00pm Pantoprazole Discontin ued 40 MG PO DAILY [facility] 2021 11:00pm y 2022 4:24pm Omeprazole Active [address] [facility] 2021 11:00pm Verapamil Discontin ued 240 MG PO DAILY [facility] 2021 11:00pm y 2022 10:28a m Fluticasone Propionate (Flovent Hfa) 220 mcg/actuation HFA aerosol inhaler Active 1 INH [facility]H [facility] 11:00pm Albuterol Sulfate (Proair Hfa) 90 mcg/actuation HFA aerosol inhaler Active 1 INH INH EVERY 6 HOURS [facility] 2021 11:00pm Lisinopril Active 40 MG PO DAILY [facility] 2021 11:00pm Topiramate Discontin ued 100 MG PO DAILY [facility] 2021 11:00pm Marua y 2022 4:24pm Rosuvastatin Discontin ued 20 MG PO DAILY [facility] 2021 11:00pm 2022 4:53pm Bupropion Hcl Discontin ued 300 MG PO DAILY [facility] 2021 11:00pm 2022 4:23pm Cholecalcifer ol (Vitamin D3) (Vitamin D3) 125 mcg (5,000 unit) tablet Active 125 MCG PO DAILY [facility] 2021 11:00pm Acetaminophen Discontin ued 650 MG PO THREE TIMES A DAY [facility] 2021 11:00pm 2022 4:22pm Clopidogrel Active 75 MG PO DAILY [facility] 2021 11:00pm Atorvastatin Active 40 MG PO [...] 04, 2022 5:38am 9.5 X10 3/uL 4.5-11.0 [facility] [id number] [address] [place] [address] 58745 Red Blood Count April 04, 2022 5:38am 4.05 X10 6/uL 3.70-5.00 [facility] [id number] [address] [place] [address] 26490 Hemoglobin April 04, 2022 5:38am 11.9 g/dl 11.0-16.0 [facility] [id number] [address] [facility] [address] Hematocrit April 04, 2022 5:38am 38.5 % 33.5-45.0 [facility] [id number] [address] [place] [address] 03363 Mean Corpuscular Volume April 04, 2022 5:38am 95.1 fl 80.0-100.0 [facility] [id number] [address] [place] [address] 69635 Mean Corpuscular Hemoglobin April 04, 2022 5:38am 29.4 pg 27.0-34.0 [facility] [id number] [address] [place] [address] 97107 Mean Corpuscular Hemoglobin Concent April 04, 2022 5:38am 30.9 g/dl 31.0-36.0 [facility] [id number] [address] [place] [address] 42813 Red Cell Distribution Width April 04, 2022 5:38am 12.2 % 11.5-15.0 [facility] [id number] [address] [place] [address] 04112 Platelet Count April 04, 2022 5:38am 345 X10 3/uL 150-400 [facility] [id number] [address] [place] [address] 39826 Immature Granulocyte % (Auto) April 02, 2022 1:58pm 1.1 % [facility] [id number] [address] [place] [address] 29282 Neutrophils (%) (Auto) April 02, 2022 1:58pm 80.0 % [facility] [id number] [address] [place] [address] 39043 Lymphocytes (%) (Auto) April 02, 2022 1:58pm 13.4 % [facility] [id number] [address] [place] [address] 65927 Monocytes (%) (Auto) April 02, 2022 1:58pm 4.7 % [facility] [id number] [address] [facility] [address] Eosinophils (%) (Auto) April 02, 2022 1:58pm 0.3 % [facility] [id number] [facility] [address] Basophils (%) (Auto) April 02, 2022 1:58pm 0.5 % [facility] [id number] [address] [place] [address] 42544 Immature Granulocyte # (Auto) April 02, 2022 1:58pm 0.14 X10 3/uL 0.00-0.09 [facility] [id number] [address] [place] [address] 57835 Neutrophils # (Auto) April 02, 2022 1:58pm 9.9 X10 3/uL 1.5-7.8 [facility] [id number] [address] [place] [address] 77664 Lymphocytes # (Auto) April 02, 2022 1:58pm 1.7 X10 3/uL 1.0-4.8 [facility] [id number] [address] [place] [address] 84452 Monocytes # (Auto) April 02, 2022 1:58pm 0.6 X10 3/uL 0.0-0.8 [facility] [id number] [address] [place] [address] 18490 Eosinophils # (Auto) April 02, 2022 1:58pm 0.0 X10 3/uL 0.0-0.5 [facility] [id number] [address] [place] [address] 67378 Basophils # (Auto) April 02, 2022 1:58pm 0.1 X10 3/uL 0.0-0.2 [facility] [id number] [address] [place] [address] 97070 Hemoglobin A1c April 03, 2022 6:50am 5.4 4.3-5.9 [facility] [id number] [address] [place] [address] 68873 Estimated Average Glucose (eAG) April 03, 2022 6:50am 108 mg/dl [facility] [id number] [address] [place], [place] [address] Nucleated Red Blood Cells % April 04, 2022 5:38am 0.0 /100 WBC 0.0-0.0 [facility] [id number] [address] [place] [address] Sodium Level April 04, 2022 5:35am 139 mmol/L 137-146 [facility] [id number] [address] [place] [address] Potassium Level April 04, 2022 5:35am 3.9 mmol/L 3.5-5.3 [facility] [id number] [address] [place] [address] Chloride Level April 04, 2022 5:35am 101 mmol/L 98-107 [facility] [id number] [address] [place] [address] Carbon Dioxide Level April 04, 2022 5:35am 28 mmol/L 23-32 [facility] [id number] [address] [place] [address] Anion Gap April 04, 2022 5:35am 10 mmol/L 5-15 [facility] [id number] [address] [place] [address] Blood Urea Nitrogen April 04, 2022 5:35am 15 mg/dl 5-25 [facility] [id number] [address] [place] [address] Creatinine April 04, 2022 5:35am 0.7 mg/dL 0.5-1.1 [facility] [id number] [address] [place] [address] Estimated Creatinine Clearance April 04, 2022 5:35am 100.7 ml/min This value is calculated by Cockcroft Gault Equation using ideal body weight. This result is dependent on an accurate patient height and weight which is obtained from patients medical record. Fly[employer], D.W. and M.H. Gault. Prediction of creatinine clearance from serum creatinine. Nephron. 1976. 16(1):31-41. [facility] [id number] [address] [place] [address] Estimat Glomerular Filtration Rate April 04, 2022 5:35am 97 >90 Reported eGFR is based on the CKD-EPI 2020 equation that does not use a race coefficient. Additional information can be found at:04-20-8261 _icb_egfr_sum [email or web address] df ([email or web address].org) [facility] [id number] [address] [facility] [address] BUN/Creatinine Ratio April 04, 2022 5:35am 21.4 10.0-20.0 [facility] [id number] [address] [facility] [address] Glucose Level April 04, 2022 5:35am 84 mg/dL 70-100 [facility] [id number] [address] [facility] [address] Calcium Level April 04, 2022 5:35am 9.5 mg/dl 8.6-10.3 [facility] [id number] [address] [facility] [address] Magnesium Level April 04, 2022 5:35am 2.1 mg/dL 1.8-2.5 [facility] [id number] [address] [facility] [address] Troponin T High Sensitivity April 02, 2022 [...] the JESUS score for the inpatient setting). [facility] [id number] [address] [place] [address] 21233 Triglycerides Level April 03, 2022 6:50am 113 mg/dL <150 <=150 mg/dL = Desirable [facility] [id number] [address] [place] [address] 98773 Cholesterol Level April 03, 2022 6:50am 144 mg/dl <199 <200 mg/dL = Desirable [facility] [id number] [address] [place] [address] 17016 LDL Cholesterol, Calculated April 03, 2022 6:50am 88 mg/dl <129 [facility] [id number] [address] [place] [address] 44375 HDL Cholesterol April 03, 2022 6:50am 33 mg/dL >40 < 40 mg/dl: Low HDL-cholester ol(major risk factor for CHD)>/= 60 mg/dl: High HDL-cholester ol(negative risk factor for CHD)HDL-jluis sterol is affected by a number of factors, e.g., smoking, excercise, hormones, sex and age. [facility] [id number] [address] [place] [address]14 Cholesterol Ratio (LDL/HDL) April 03, 2022 6:50am 2.7 LDL/HDL Interpretatio n:Ratio Men Women1/2 Average 1.00 1.47Average 3.55 3.222X Average 6.25 5.033X Average 7.99 6.14 [facility] [id number] [address] [place] [address] 35381 Cholesterol/HDL Ratio April 03, 2022 6:50am 4.4 Cholesterol/H DL Interpretatio n: Ratio Men Women 1/2 Average 3.43 3.27 Average 4.97 4.44 2X Average 9.55 7.05 3X Average 23.39 11.04 [facility] [id number] [address] [place] [address] 62218 Vitamin B12 Level April 03, 2022 6:50am 406 pg/ml [phone] [facility] [id number] [address] [facility] [address] Thyroid Stimulating Hormone (Reflex April 03, 2022 6:50am 1.83 uIU/mL 0.34-5.60 [facility] [id number] [address] [place] [address] Diagnostic Imaging Reports Report Dictated Date/Time Dictated By Status Radiology Report April 02, 2022 2:31pm Iliana Daniels MD completed [facility] [address] [place] [address] Patient Name: Alysa Luevano Medical Record#: [id number] 1 Address: [address] [place] [address] City/State/Zip: [place] [address]: Haja Alcantara MD Insurance: [facility] (Medicaid) /Age/Sex: 1960/61/F Self Pay Admit/Reg Date: 04/02/[address]: Carroll castellon MD Location: ED.AH/ PCP: Agata Reza MD Date of Service: 04/02/22 Order (s): CT head/brain wo contrast CPT Code: 21390 Report Number: [id number] Reason for Exam: dizziness CT head/brain wo [...] 2022 12:12pm Kevin Islas III, MD completed [address] [place] [address] Patient Name: Alysa Luevano Medical Record#: [id number] 1 Address: [address] [place] [address] City/State/Zip: [place] [address]: Ross Mejia MD Insurance: [facility] (Medicaid) /Age/Sex: 1960/61/F Self Pay Admit/Reg Date: 04/02/[address]: Vargas Ortega MD Location: [address] PCP: Agata Reza MD Date of Service: 04/03/22 Order (s): MR head/brain wo contrast CPT Code: 96122 Report Number: [id number] Reason for Exam: dizziness, new cva? EXAM: [...] III, MD 04/03/22 1224 TD/TT: 04/03/22 1212Tech: [id number] cc: ESTEFANIA; NICKO; ASHLEY* Roosevelt Mejia MD; Agata Reza MD; Vargas Ortega MD Report Dictated Date/Time Dictated By Status Echocardiogram April 03, 2022 1:37pm Maryana [place]eves [place] [address] Patient Name: Alysa Luevano Medical Record#: [id number] 1 Address: [address] [place] [address] City/State/Zip: [place] [address]: Ross Mejia MD Insurance: [facility] (Medicaid) /Age/Sex: 1960/61/F Self Pay Admit/Reg Date: 04/03/[address]: Vargas Ortega MD Location: [address] PCP: Agata Reza MD Date of Service: 04/03/22 Order (s): Echo TTE cmp w/dop wo contrast CPT Code: 29926 Report Number: [id number] Reason for Exam: dizziness, risk of cva, previous cva Transthoracic Echocardiography Report (TTE) Demographics Patient Name Bassem Watt Gender Female MR Number [id number] Date of 1960 Age 61 year(s) Room Number SL1753 Height 61 inches Date of study 04/03/2022 Weight 269.01 pounds Referring BSA 2.14 m^2 Interpreting MD Maryana Reeves MD BMI 50.83 kg/m^2 Fellow [employer] Dia Hampton [facility] Conclusions Summary Leaflets of mitral valve are [...] 12:23pm Insurance Providers Guarantor Alysa Luevano Address [address] [place] [address] Contact Info. Home Phone: Payer Policy Id Coverage Id Subscriber's Name Subscriber Id Effective Date Expiration Date [facility] (Medicaid) [id number] Alysa Luevano [id number] Encounters Encounter Location(s) Arrival/Admit Date Discharge/Depart Date Provider(s) Discharged Inpatient [facility] April 03, 2022 3:10pm April 04, 2022 [...] 6 months Rachna Norris MD Work Phone: [address] [place] [address] Agata Reza MD Work Phone: [address] [address] Agata Reza MD Work Phone: [address] [address] Agata Reza MD Work Phone: [address] [address] Agata Reza MD Work Phone: [address] [address] Case Jameel Allen will call patient with appointment Agata Reza MD Work Phone: [address] [address] Agata Reza MD Work Phone: [address] [address] Future Procedures Procedure Name Ordered Date Scheduled [...] 2:50pm Discharge November 17, 2021 9:43am Sept[facility] 2021 9:43am ED Transfer of Care [...]
--- OUTSIDE RECORDS SUMMARY | 2022-08-06 05:07 | XMS_ITS | Patient Health Record ---
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 Name Role Phone Yinka J CarlosLeandro Unavailable BonnieGiannaVicki Unavailable [phone] Irene Muniz Unavailable [phone] EstherFlona Unavailable [phone] Sophie Kate Unavailable [phone] Kwame Erickson Unavailable [phone] Jeniffer Guardado Unavailable [phone] Rachna Norris Unavailable [phone] Vargas Ortega Unavailable [phone] PROBLEMS Type Condition ICD9-CM Code QXL40-VY Code Onset Dates Condition Status W/U Status Risk SNOMED Code Notes Problem Accelerated essential hypertension I10 confirmed 24814336 Problem Obstructive apnea G47.33 confirmed 94536037 Problem Ischemic stroke I63.9 confirmed 905972040 Problem Intracranial carotid stenosis, left I65.22 confirmed 974265700 Problem Poor sleep pattern G47.8 confirmed 636529796 Problem Transient cerebral ischemia G45.9 confirmed 663479507 Problem Mixed hyperlipidemi a E78.2 confirmed 243720113 Problem Transient ischemic attack (TIA) G45.9 confirmed 869543029 Problem Bilateral carotid artery stenosis I65.23 confirmed 468395713 Problem Aspirin allergy Z88.8 confirmed 672834085 Problem TIA (transient ischemic attack) G45.9 confirmed 386211956 Problem Pulmonary hypertension I27.20 confirmed 02692023 Problem Sleep disorder G47.9 confirmed 89398067 Problem Primary hypertension I10 confirmed [id number] ALLERGIES Allergen (clinical drug ingredient) Drug/Non Drug Allergy documented on EMR Reaction Allergy Type Onset Date Status Substance with sulfonamide structure and antibacterial mechanism of action (substance) Sulfa Antibiotics anaphylaxis Drug Allergy Active aspirin Aspirin([facility] Code:[address]-20) Unknown Drug Allergy Active ENCOUNTERS from 1960 to 2022-08-06 Encounter Location Date Provider Diagnosis [facility] Cardiology Office [address], [place] [id number] Jun, Leandro Whitman Primary hypertension I10 ; Pulmonary hypertension I27.20 ; Ischemic stroke I63.9 ; Mixed hyperlipidemia E78.2 and Sleep disorder G47.9 [facility] [address] [place], [place] [id number] 14 Jun, 2022 Vicki Nicole Bilateral carotid artery stenosis I65.23 [facility] [address] [place], [place] [id number] May, Briscoe Jr Dizziness R42 [facility] Office [address] [place] [id number] Mar, Jeniffer Grandy Primary hypertension I10 [facility] Cardiology Office [address] [place] [id number] Mar, Leandro Whitman Sleep disorder G47.9 ; Pulmonary hypertension I27.20 ; Transient ischemic attack (TIA) G45.9 and Primary hypertension I10 [facility] Cardiology Office [address], [place] [id number] Jan, Jeniffer Guardado [facility] Cardiology Office [address] [place] [id number] Dec, Jeniffer Guardado Accelerated essentia l hypertension I10 ; Ischemic stroke I63.9 ; Pulmonary hypertension I27.20 and Obstructive apnea G47.33 [facility] Office [address] [place] [id number] Dec, Jeniffer Guardado Ischemic stroke I63. 9 ; Pulmonary hypertension I27.20 and Obstructive apnea G47.33 SOCIAL HISTORY Tobacco Use: Social History Observation Description Date Details (start date - stop date) Never Smoker Sex Assigned At : Social History Observation Description Sex Assigned At Unknown Tobacco Use/Smoking Question Answer Notes Patient is a: never smoker REASON FOR REFERRAL No Information VITAL SIGNS from 1960 to 2022-08-06 Weight 270 lbs Jun, Heart Rate 88 /min Jun, Respiratory Rate 16 /min Jun, Oximetry 96 % 14 Jun, 2022 Blood pressure systolic 110 mm Hg Jun, Blood pressure diastolic 70 mm Hg Jun, MEDICATIONS Medication SIG (Take, Route, Frequency, Duration) Notes Start Date End Date Status Bupropion HCL 30 MG 300 mg Orally Once a day Not-Taking Verapamil HCl ER 240 MG 1 tablet Orally Once a day Not-Taking Pantoprazole Sodium 40 MG 1 tablet Orall y Once a day Not-Taking Lisinopril 40 MG 1 tablet Orally Once a day Not-Taking Chlorthalidone 25 MG 1 tablet in the morning with food Orally Once a day Active Omeprazole 20 MG 1 capsule 30 minutes before morning meal Orally Once a day Active Rosuvastatin Calcium 20 MG 1 tablet Oral ly Once a day Active Topiramate 100 MG 1 tablet Orally Once a day Not-Taking Metoprolol Succinate ER 200 MG 1 tablet Orally Once a day Not-Taking Cetirizine HCl 10 MG 1 tablet Orally Onc e a day Not-Taking Vitamin D3 125 MCG (5000 UT) as directed Orally Active Albuterol Sulfate 108 (90 Base) MCG/ACT 1 puff as needed Inhalation every 4 hrs Active Clopidogrel Bisulfate 75 MG 1 tablet Orally Once a day Active Flovent HFA 220 MCG/ACT 2 puffs Inhalati on Twice a day Active Atorvastatin Calcium 40 MG 1 tablet Oral ly Once a day Not-Taking RESULTS from 1960 to 2022-08-06 Component Value Reference Range Notes MR head/brain wo con Reviewed date:04/04/2022 07:23:29 Interpretation: Performing Lab:[facility]CHelena,Roosevelt Mejia MD; Agata Reza MD; Vargas Ortega MD Notes/Report: See Below For Report EKG Reviewed date:12/27/2021 11:52:55 Interpretation:NSR 80 bpm Performing Lab:[facility] Notes/Report: EKG REASON FOR VISIT No Information MENTAL STATUS No Information ASSESSMENTS Encounter Date Diagnosis Assessment Notes Treatment Notes Treatment Clinical Notes Jun, Primary hypertension (ICD-10 - I10) Blood pressure control, continue current therapy. Jun, Pulmonary hypertensi on (ICD-10 - I27.20) Jun, Ischemic stroke (ICD -10 - I63.9) The patient has significant risk factors for atrial fibrillation, we did a 30 day event monitor that showed no evidence of atrial fibrillation. She had an admission to the hospital with dizziness and some palpitations. Recommend to obtain an implantable loop recorder, they will consider this and discuss with me on the next visit. Jun, Mixed hyperlipidemia (ICD-10 - E78.2) Continue statin therapy. Jun, Sleep disorder (ICD- 10 - G47.9) The patient has requested an extension in terms of when to do the study, she would not be able to move out of the house in the next few weeks. I strongly believe the patient should have a sleep study, we need to make sure that her sleep apnea is well treated. 14 Jun, 2022 Bilateral carotid ar abdiel stenosis (ICD-10 - I65.23) Follow-up in 1 year with a repeat carotid duplex. Continue anti-platelet and statin therapy daily. 16 May, 2022 Dizziness (ICD-10 - R42) May, Transient cerebral ischemia (ICD-10 - G45.9) May, Intracranial carotid stenosis, left (ICD-10 - I65.22) May, Bilateral leg weakne ss (ICD-10 - R29.898) May, H/O: stroke (ICD-10 - Z86.73) May, Aspirin allergy (ICD -10 - Z88.8) Mar, Primary hypertension (ICD-10 - I10) Mar, Accelerated essentia l hypertension (ICD-10 - I10) Mar, Dizziness (ICD-10 - R42) Mar, Status post stroke (ICD-10 - Z86.73) Mar, Poor sleep pattern (ICD-10 - G47.8) Mar, Sleep disorder (ICD- 10 - G47.9) Patient with evidence of pulmonary hypertension, stroke. She is not resting well. I am concerned she has significant sleep apnea which has been untreated for years. We'll proceed with sleep study. Mar, Pulmonary hypertensi on (ICD-10 - I27.20) Mar, Transient ischemic a ttack (TIA) (ICD-10 - G45.9) Agree with the need of a loop recorder, the patient will think about it for now. Patient has significant risk factors for atrial fibrillation including hypertension, obesity, stroke and potential sleep apnea. Mar, Primary hypertension (ICD-10 - I10) stable, continue current management. Mar, Other Please remember that medical charts are intended for communication between medical providers and may contain language that could be confusing and even alarming when taken out of context. The best source of information regarding your condition comes from direct communication with your providers. Please feel free to ask me should you have questions regarding your cardiac care. Please also note that the conditions, diagnoses and plans for patients can change after this visit and this note may not reflect the most up to date information. Dec, Accelerated essentia l hypertension (ICD-10 - I10) Dec, Ischemic stroke (ICD -10 - I63.9) Event monitor was negative. Discussed that AFIB could still be the cause, rec loop loop monitor implantation to be sure and pt is agreeable. Refill plavix, instructed her on importance of taking med and not missing it to prevent another TIA/CVA. Dec, Pulmonary hypertensi on (ICD-10 - I27.20) Likely from morbid obesity. Continue diuretics. Dec, Obstructive apnea (I CD-10 - G47.33) Dec, Ischemic stroke (ICD -10 - I63.9) Continue event monitor to r/o cardiac source of embolus. If TIA or CVA on plavix, rec loop monitor implantation. Dec, Pulmonary hypertensi on (ICD-10 - I27.20) Likely from morbid obesity. Continue diuretics. Dec, Obstructive apnea (I CD-10 - G47.33) Nov, Acute brainstem stro ke (ICD-10 - I63.9) Nov, Accelerated essentia l hypertension (ICD-10 - I10) Nov, Acquired hyperlipoproteinemia (ICD-10 - E78.5) Nov, Body mass index (BMI ) greater than 50 (ICD-10 - E66.01) Nov, TIA (transient ische mervin attack) (ICD-10 - G45.9) Nov, Ischemic stroke (ICD -10 - I63.9) Nov, Acute brainstem stro ke (ICD-10 - I63.9) Nov, Transient ischemic a ttack (TIA) (ICD-10 - G45.9) Nov, Body mass index (BMI ) greater than 50 (ICD-10 - E66.01) Nov, Obstructive apnea (I CD-10 - G47.33) Nov, Arteriosclerosis of carotid artery (ICD-10 - I65.29) PLAN OF TREATMENT Medication Medication Name Sig Start Date Stop Date Chlorthalidone 25 MG 1 tablet in the mor charles with food Orally Once a day Clopidogrel Bisulfate 75 MG 1 tablet Orally Once a day Rosuvastatin Calcium 20 MG 1 tablet Orally Once a day Treatment Notes Assessment Notes Clinical Notes Ischemic stroke Continue event monit or to r/o cardiac source of embolus. If TIA or CVA on plavix, rec loop monitor implantation. Pulmonary hypertension Likely from morbi d obesity. Continue diuretics. Bilateral carotid artery stenosis Follow -up in 1 year with a repeat carotid duplex. Continue anti-platelet and statin therapy daily. Primary hypertension Blood pressure cont rol, continue current therapy. Sleep disorder Patient with evidenc e of pulmonary hypertension, stroke. She is not resting well. I am concerned she has significant sleep apnea which has been untreated for years. We'll proceed with sleep study. Transient ischemic attack (TIA) Agree wi th the need of a loop recorder, the patient will think about it for now. Patient has significant risk factors for atrial fibrillation including hypertension, obesity, stroke and potential sleep apnea. Ischemic stroke The patient has sign ificant risk factors for atrial fibrillation, we did a 30 day event monitor that showed no evidence of atrial fibrillation. She had an admission to the hospital with dizziness and some palpitations. Recommend to obtain an implantable loop recorder, they will consider this and discuss with me on the next visit. Ischemic stroke Event monitor was corby beckwith. Discussed that AFIB could still be the cause, rec loop loop monitor implantation to be sure and pt is agreeable. Refill plavix, instructed her on importance of taking med and not missing it to prevent another TIA/CVA. Primary hypertension stable, continue cu rrent management. Pulmonary hypertension Likely from morbi d obesity. Continue diuretics. Sleep disorder The patient has requ ested an extension in terms of when to do the study, she would not be able to move out of the house in the next few weeks. I strongly believe the patient should have a sleep study, we need to make sure that her sleep apnea is well treated. Mixed hyperlipidemia Continue statin the rapy. Pending Tests Test Name Order Date [facility] CAROTID [facility]UPLEX Vascular 2022-05-24 Future Test Test Name Order Date US CAROTID DUPLEX Vascular [id number] SLEEP STUDY HOME TEST [id number] Next Appt Details 3 Months Reason: Provider Name:Vicki Nicole, 2023-06-24 10:15:00 AM, [address] [place] [address], [id number], Provider Name:Vicki Nicole, 2023-06-28 01:30:00 PM, [address] [place] [address], [id number], Insurance Providers Payer Name Payer Address Payer Phone Insured Name Patient Relationship to Insured Coverage Start Date Coverage End Date Subscriber Number Group Number [employer] [facility] t Plan [address] [address] [facility] [id number] Celestine Luevano Self - patient is the insured 9 [id number] [employer] [address] [facility] [phone] Celestine Luevano Self - patient is the insured [id number]
--- OUTSIDE RECORDS SUMMARY | 2022-08-06 05:07 | XMS_ITS | Continuity of Care Document ---
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 Filling Name Role Phone MD Kerri Rezaly Primary Care Provider MD Reyna Rodrigues Emergency Provider Electronic Service Technician, Twan Other Provider Unavailable MD Taina Naqvi Attending Provider MD Ken Norrisim Other Provider MD [facility] Provider [phone] Chief Complaint and Reason for Visit Chief [...] Prior to Admission Home Health Aide [facility] 2021 1:03pm Living Situation Assisted Care Facility [facility] 2021 4:42pm Living Situation Apartment November [...] Active 10 MG PO DAILY [facility] 2021 12:00am Metoprolol Succinate Active 200 MG PO DAILY [facility] 2021 12:00am Chlorthalidon e Discontin ued 25 MG PO DAILY [facility] 2021 12:00am [facility] 2021 12:44a m Chlorthalidon e Active 75 MG PO DAILY [facility] 2021 12:00am Acetaminophen Active 500 MG PO DAILY [facility] 2021 12:00am Pantoprazole Active 40 MG PO DAILY [facility] 2021 12:00am Omeprazole Active 20 MG PO DAILY [facility] 2021 12:00am Verapamil Active 240 MG PO DAILY [facility] 2021 12:00am Fluticasone Propionate (Flovent Hfa) 220 mcg/actuation HFA aerosol inhaler Active 1 INH INH TWICE A DAY [facility] 2021 12:00am Albuterol Sulfate (Proair Hfa) 90 mcg/actuation HFA aerosol inhaler Active 1 INH INH EVERY 6 HOURS [facility] 2021 12:00am Lisinopril Active 40 MG PO DAILY [facility] 2021 12:00am Topiramate Active 100 MG PO DAILY [facility] 2021 12:00am Rosuvastatin Active 20 MG PO DAILY [facility] 2021 12:00am Bupropion Hcl Active 300 MG PO DAILY [facility] 2021 12:00am Cholecalcifer ol (Vitamin D3) (Vitamin D3) 125 mcg (5,000 unit) tablet Active 125 MCG PO DAILY [facility] 2021 12:00am Acetaminophen Active 650 MG PO THREE TIMES A DAY [facility] 2021 12:00am Clopidogrel Active 75 MG PO DAILY 30 Septe [facility] 2021 12:00am Procedures Procedure Date Performed Status [...] Request November 13, 2021 10:48pm Added test [facility] [address] [place] [address] 64157 White Blood Count November 16, 2021 5:35am 11.5 X10 3/uL 4.5-11.0 [facility] [address] [place] [address] 57670 White Blood Count November 21, 2021 5:09pm 13.5 X10 3/uL 4.5-11.0 [facility] [address] [place] [address] 24915 White Blood Count November 29, 2021 1:11pm 9.6 X10 3/uL 4.5-11.0 [facility] [address] [place] [address] 95737 Red Blood Count November 16, 2021 5:35am 4.28 X10 6/uL 3.70-5.00 [facility] [address] [place] [address] 93875 Red Blood Count November 21, 2021 5:09pm 4.70 X10 6/uL 3.70-5.00 [facility] [address] [place] [address] 14288 Red Blood Count November 29, 2021 1:11pm 4.55 X10 6/uL 3.70-5.00 [facility] [address] [facility] [address] Hemoglobin November 16, 2021 5:35am 12.4 g/dl 11.0-16.0 [facility] [address] [facility] 23375 Hemoglobin November 21, 2021 5:09pm 13.9 g/dl 11.0-16.0 [facility] [address] [place] [address] 21450 Hemoglobin November 29, 2021 1:11pm 13.3 g/dl 11.0-16.0 [facility] [address] [place] [address] 32556 Hematocrit November 16, 2021 5:35am 39.7 % 33.5-45.0 [facility] [address] [place] [address] 22935 Hematocrit November 21, 2021 5:09pm 42.3 % 33.5-45.0 [facility] [address] [place] [address] 97894 Hematocrit November 29, 2021 1:11pm 41.1 % 33.5-45.0 [facility] [address] [place] [address] 23044 Mean Corpuscular Volume November 16, 2021 5:35am 92.8 fl 80.0-100.0 [facility] [address] [place] [address] 12344 Mean Corpuscular Volume November 21, 2021 5:09pm 90.0 fl 80.0-100.0 [facility] [address] [place] [address] 08852 Mean Corpuscular Volume November 29, 2021 1:11pm 90.3 fl 80.0-100.0 [facility] [address] [place] [address] 25129 Mean Corpuscular Hemoglobin November 16, 2021 5:35am 29.0 pg 27.0-34.0 [facility] [address] [place] [address] 75546 Mean Corpuscular Hemoglobin November 21, 2021 5:09pm 29.6 pg 27.0-34.0 [facility] [address] [place] [address] 54388 Mean Corpuscular Hemoglobin November 29, 2021 1:11pm 29.2 pg 27.0-34.0 [facility] [address] [place] [address] 90299 Mean Corpuscular Hemoglobin Concent November 16, 2021 5:35am 31.2 g/dl 31.0-36.0 [facility] [address] [place] [address] 30293 Mean Corpuscular Hemoglobin Concent November 21, 2021 5:09pm 32.9 g/dl 31.0-36.0 [facility] [address] [place] [address] 64704 Mean Corpuscular Hemoglobin Concent November 29, 2021 1:11pm 32.4 g/dl 31.0-36.0 [facility] [address] [place] [address] 48124 Red Cell Distribution Width November 16, 2021 5:35am 13.7 % 11.5-15.0 [facility] [address] [place] [address] 70185 Red Cell Distribution Width November 21, 2021 5:09pm 13.8 % 11.5-15.0 [facility] [address] [place] [address] 93530 Red Cell Distribution Width November 29, 2021 1:11pm 13.3 % 11.5-15.0 [facility] [address] [place] [address] 47829 Platelet Count November 16, 2021 5:35am 347 X10 3/uL 150-400 [facility] [address] [place] [address] 97914 Platelet Count November 21, 2021 5:09pm 404 X10 3/uL 150-400 [facility] [address] [place] [address] 81475 Platelet Count November 29, 2021 1:11pm 339 X10 3/uL 150-400 [facility] [address] [place] [address] 93755 Immature Granulocyte % (Auto) November 16, 2021 5:35am 1.5 % [facility] [address] [place] [address] 55429 Immature Granulocyte % (Auto) November 21, 2021 5:09pm 0.7 % [facility] [address] [place] [address] 20313 Immature Granulocyte % (Auto) November 29, 2021 1:11pm 0.6 % [facility] [address] [place] [address] 80824 Neutrophils (%) (Auto) November 16, 2021 5:35am 65.6 % [facility] [address] [facility] 48953 Neutrophils (%) (Auto) November 21, 2021 5:09pm 70.0 % [facility] [address] [place] [address] Neutrophils (%) (Auto) November 29, 2021 1:11pm 73.9 % [facility] [address] [place] [address] 83674 Lymphocytes (%) (Auto) November 16, 2021 5:35am 26.4 % [facility] [address] [facility] 50643 Lymphocytes (%) (Auto) November 21, 2021 5:09pm 21.6 % [facility] [address] [place] [address] 23062 Lymphocytes (%) (Auto) November 29, 2021 1:11pm 17.5 % [facility] [address] [place] [address] 32080 Monocytes (%) (Auto) November 16, 2021 5:35am 5.8 % [facility] [address] [facility] 89001 Monocytes (%) (Auto) November 21, 2021 5:09pm 6.7 % [facility] [address] [place] [address] 64761 Monocytes (%) (Auto) November 29, 2021 1:11pm 6.6 % [facility] [address] [place] [address] 89011 Eosinophils (%) (Auto) November 16, 2021 5:35am 0.3 % [facility] [address] [place] [address] 73798 Eosinophils (%) (Auto) November 21, 2021 5:09pm 0.6 % [facility] [address] [place] [address] 40357 Eosinophils (%) (Auto) November 29, 2021 1:11pm 0.8 % [facility] [address] [place] [address] 40338 Basophils (%) (Auto) November 16, 2021 5:35am 0.4 % [facility] [address] [place] [address] 26978 Basophils (%) (Auto) November 21, 2021 5:09pm 0.4 % [facility] [address] [place] [address] 70326 Basophils (%) (Auto) November 29, 2021 1:11pm 0.6 % [facility] [address] [place] [address] 48989 Immature Granulocyte # (Auto) November 16, 2021 5:35am 0.17 X10 3/uL 0.00-0.09 [facility] [address] [place] [address] 52678 Immature Granulocyte # (Auto) November 21, 2021 5:09pm 0.10 X10 3/uL 0.00-0.09 [facility] [address] [place] [address] 78858 Immature Granulocyte # (Auto) November 29, 2021 1:11pm 0.06 X10 3/uL 0.00-0.09 [facility] [address] [place] [address] 17246 Neutrophils # (Auto) November 16, 2021 5:35am 7.5 X10 3/uL 1.5-7.8 [facility] [address] [place] [address] 62825 Neutrophils # (Auto) November 21, 2021 5:09pm 9.4 X10 3/uL 1.5-7.8 [facility] [address] [place] [address] 59683 Neutrophils # (Auto) November 29, 2021 1:11pm 7.1 X10 3/uL 1.5-7.8 [facility] [address] [place] [address] 04280 Lymphocytes # (Auto) November 16, 2021 5:35am 3.0 X10 3/uL 1.0-4.8 [facility] [address] [place] [address] 72023 Lymphocytes # (Auto) November 21, 2021 5:09pm 2.9 X10 3/uL 1.0-4.8 [facility] [address] [place] [address] 32607 Lymphocytes # (Auto) November 29, 2021 1:11pm 1.7 X10 3/uL 1.0-4.8 [facility] [address] [place] [address] 49043 Monocytes # (Auto) November 16, 2021 5:35am 0.7 X10 3/uL 0.0-0.8 [facility] [address] [place] [address] 04536 Monocytes # (Auto) November 21, 2021 5:09pm 0.9 X10 3/uL 0.0-0.8 [facility] [address] [place] [address] 36711 Monocytes # (Auto) November 29, 2021 1:11pm 0.6 X10 3/uL 0.0-0.8 [facility] [address] [place] [address] 68806 Eosinophils # (Auto) November 16, 2021 5:35am 0.0 X10 3/uL 0.0-0.5 [facility] [address] [place] [address] 85118 Eosinophils # (Auto) November 21, 2021 5:09pm 0.1 X10 3/uL 0.0-0.5 [facility] [address] [place] [address] 62949 Eosinophils # (Auto) November 29, 2021 1:11pm 0.1 X10 3/uL 0.0-0.5 [facility] [address] [place] [address] 96691 Basophils # (Auto) November 16, 2021 5:35am 0.1 X10 3/uL 0.0-0.2 [facility] [address] [place] [address] 07763 Basophils # (Auto) November 21, 2021 5:09pm 0.1 X10 3/uL 0.0-0.2 [facility] [address] [place] [address] 01236 Basophils # (Auto) November 29, 2021 1:11pm 0.1 X10 3/uL 0.0-0.2 [facility] [address] [place] [address] 65239 Hemoglobin A1c November 14, 2021 3:16pm 5.8 4.3-5.9 [facility] [address] [place] [address] 10345 Estimated Average Glucose (eAG) November 14, 2021 3:16pm 120 mg/dl [facility] [address] [place] [address] 16435 Nucleated Red Blood Cells % November 16, 2021 5:35am 0.0 /100 WBC 0.0-0.0 [facility] [address] [place] [address] [place] [address] Nucleated Red Blood Cells % November 21, 2021 5:09pm 0.0 /100 WBC 0.0-0.0 [facility] [address] [place] [address] 84835 Nucleated Red Blood Cells % November 29, 2021 1:11pm 0.0 /100 WBC 0.0-0.0 [facility] [address] [place] [address] 57812 Urine Color November 14, 2021 3:52am Yellow Yellow [facility] [address] [place] [address] 00312 Urine Color November 29, 2021 2:28pm Yellow Yellow [facility] [address] [place] [address] 62130 Urine Clarity November 14, 2021 3:52am Clear Clear [facility] [address] [place] [address] 18173 Urine Clarity November 29, 2021 2:28pm Clear Clear [facility] [address] [place] [address] 91639 Urine pH November 14, 2021 3:52am 5.0 5.0-8.0 [facility] [address] [place] [address] 34076 Urine pH November 29, 2021 2:28pm 6.5 5.0-8.0 [facility] [address] [place] [address] 62852 Urine Specific Gillespie November 14, 2021 3:52am >= 1.030 1.005-1.03 0 [facility] [address] [place] [address] 67569 Urine Specific Gillespie November 29, 2021 2:28pm <= 1.005 1.005-1.03 0 [facility] [address] [place] [address] 02259 Urine Blood November 14, 2021 3:52am Negative mg/dL Negative [facility] [address] [place] [address] 95979 Urine Blood November 29, 2021 2:28pm Negative mg/dL Negative [facility] [address] [place] [address] 32707 Urine Protein November 14, 2021 3:52am Negative mg/dL Negative [facility] [address] [place] [address] 46686 Urine Protein November 29, 2021 2:28pm Negative mg/dL Negative [facility] [address] [place] [address] 65231 Urine Glucose (UA) November 14, 2021 3:52am Negative mg/dl Negative [facility] [address] [place] [address] 72606 Urine Glucose (UA) November 29, 2021 2:28pm Negative mg/dl Negative [facility] [address] [place] [address] 83114 Urine Ketones November 14, 2021 3:52am Negative mg/dL Negative [facility] [address] [place] [address] 58881 Urine Ketones November 29, 2021 2:28pm Negative mg/dL Negative [facility] [address] [place] [address] 99181 Urine Nitrate November 14, 2021 3:52am Negative Negative [facility] [address] [place] [address] 73598 Urine Nitrate November 29, 2021 2:28pm Negative Negative [facility] [address] [place] [address] 04515 Urine Bilirubin November 14, 2021 3:52am Negative mg/dL Negative [facility] [address] [place] [address] 02295 Urine Bilirubin November 29, 2021 2:28pm Negative mg/dL Negative [facility] [address] [place] [address] 15145 Urine Urobilinogen November 14, 2021 3:52am 0.2 E.U./dL Normal [facility] [address] [place] [address] 89145 Urine Urobilinogen November 29, 2021 2:28pm 1.0 E.U./dL Normal [facility] [address] [place] [address] 30278 Urine Leukocyte Esterase November 14, 2021 3:52am Moderate mg/dL Negative [facility] [address] [place] [address] 74918 Urine Leukocyte Esterase November 29, 2021 2:28pm Negative mg/dL Negative [facility] [address] [place] [address] 32804 Urine RBC (Auto) November 14, 2021 3:52am None seen /HPF 0-2 [facility] [address] [place] [address] 68979 Urine WBC (Auto) November 14, 2021 3:52am 11-25 /HPF 0-5 [facility] [address] [place] [address] 65473 Urine Epithelial Cells (Auto) November 14, 2021 3:52am 6-10 /HPF 0-5 [facility] [address] [place] [address] 84754 Urine Casts (Auto) November 14, 2021 3:52am None seen /LPF None Seen [facility] [address] [place] [address] 88313 Urine Bacteria (Auto) November 14, 2021 3:52am Rare /HPF None Seen [facility] [address] [place] [address] 10550 Sodium Level November 16, 2021 5:35am 137 mmol/L 137-146 [facility] [address] [place] [address] 59082 Sodium Level November 21, 2021 5:09pm 135 mmol/L 137-146 [facility] [address] [place] [address] 79578 Sodium Level November 29, 2021 1:11pm 135 mmol/L 137-146 [facility] [address] [place] [address] 01418 Potassium Level November 16, 2021 5:35am 4.2 mmol/L 3.5-5.3 [facility] [address] [place] [address] 88621 Potassium Level November 21, 2021 5:09pm 4.7 mmol/L 3.5-5.3 [facility] [address] [place] [address] 73968 Potassium Level November 29, 2021 1:11pm 4.3 mmol/L 3.5-5.3 [facility] [address] [place] [address] 81919 Chloride Level November 16, 2021 5:35am 99 mmol/L 98-107 [facility] [address] [place] [address] 61030 Chloride Level November 21, 2021 5:09pm 101 mmol/L 98-107 [facility] [address] [place] [address] 50379 Chloride Level November 29, 2021 1:11pm 100 mmol/L 98-107 [facility] [address] [place] [address] 16079 Carbon Dioxide Level November 16, 2021 5:35am 27 mmol/L 23-32 [facility] [address] [place] [address] 39982 Carbon Dioxide Level November 21, 2021 5:09pm 22 mmol/L [facility] [address] [facility] 09197 Carbon Dioxide Level November 29, 2021 1:11pm 22 mmol/L [facility] [address] [place] [address] 41562 Anion Gap November 16, 2021 5:35am 11 mmol/L 07-23 [facility] [address] [place] [address] 34038 Anion Gap November 21, 2021 5:09pm 12 mmol/L 07-23 [facility] [address] [place] [address] 62607 Anion Gap November 29, 2021 1:11pm 13 mmol/L 07-23 [facility] [address] [place] [address] 37737 Blood Urea Nitrogen November 16, 2021 5:35am 31 mg/dl 08-02 [facility] [address] [place] [address] 74017 Blood Urea Nitrogen November 21, 2021 5:09pm 49 mg/dl 08-02 [facility] [address] [place] [address] 05801 Blood Urea Nitrogen November 29, 2021 1:11pm 25 mg/dl 08-02 [facility] [address] [place] [address] 00399 Creatinine November 16, 2021 5:35am 1.2 mg/dL 0.5-1.1 [facility] [address] [place] [address] 38221 Creatinine November 21, 2021 5:09pm 1.3 mg/dL 0.5-1.1 [facility] [address] [place] [address] 64443 Creatinine November 29, 2021 1:11pm 0.9 mg/dL 0.5-1.1 [facility] [address] [place] [address] 33046 Estimated Creatinine Clearance November 16, 2021 5:35am 65.4 ml/min This value is calculated by Cockcroft Gault Equation using ideal body weight. This result is dependent on an accurate patient height and weight which is obtained from patients medical record. Louie Morales. and M.H. Santana. Prediction of creatinine clearance from serum creatinine. Nephron. 1976. 16(1):31-41. [facility] [address] [place] [address] 85832 Estimated Creatinine Clearance November 21, 2021 5:09pm 56.8 ml/min This value is calculated by Cockcroft Gault Equation using ideal body weight. This result is dependent on an accurate patient height and weight which is obtained from patients medical record. Cockcroft, D.W. and M.H. Gault. Prediction of creatinine clearance from serum creatinine. Nephron. 1975. 16(1):31-41. [facility] [address] [facility] 95160 Estimated Creatinine Clearance November 29, 2021 1:11pm 74.8 ml/min This value is calculated by Cockcroft Gault Equation using ideal body weight. This result is dependent on an accurate patient height and weight which is obtained from patients medical record. Cockcroft, D.W. and M.H. Gault. Prediction of creatinine clearance from serum creatinine. Nephron. 1975. 16(1):31-41. [facility] [address] [facility] 37313 Estimated GFR () November 16, 2021 5:35am 56 >60 [facility] [address] [place] [address] 29147 Estimated GFR () November 21, 2021 5:09pm 51 >60 [facility] [address] [place] [address] 63531 Estimated GFR () November 29, 2021 1:11pm 79 >60 [facility] [address] [place] [address] 32548 Estimated GFR (Non- November 16, 2021 5:35am 48 >60 [facility] [address] [place] [address] 60648 Estimated GFR (Non- November 21, 2021 5:09pm 44 >60 [facility] [address] [place] [address] 83541 Estimated GFR (Non- November 29, 2021 1:11pm 68 >60 [facility] [address] [place] [address] 63590 BUN/Creatinine Ratio November 16, 2021 5:35am 25.8 10.0-20.0 [facility] [address] [place] [address] 02665 BUN/Creatinine Ratio November 21, 2021 5:09pm 37.7 10.0-20.0 [facility] [address] [place] [address] 18947 BUN/Creatinine Ratio November 29, 2021 1:11pm 27.8 10.0-20.0 [facility] [address] [place] [address] 00898 Glucose Level November 16, 2021 5:35am 97 mg/dL 70-100 [facility] [address] [place] [address] 31691 Glucose Level November 21, 2021 5:09pm 114 mg/dL 70-100 [facility] [address] [place] [address] 25288 Glucose Level November 29, 2021 1:11pm 111 mg/dL 70-100 [facility] [address] [place] [address] 99512 Calcium Level November 16, 2021 5:35am 9.6 mg/dl 8.6-10.3 [facility] [address] [place] [address] 54797 Calcium Level November 21, 2021 5:09pm 10.0 mg/dl 8.6-10.3 [facility] [address] [place] [address] 06978 Calcium Level November 29, 2021 1:11pm 9.6 mg/dl 8.6-10.3 [facility] [address] [place] [address] 81313 Magnesium Level November 16, 2021 5:35am 2.5 mg/dL 1.8-2.5 [facility] [address] [place] [address] 34268 Total Bilirubin November 14, 2021 3:16pm < 0.2 mg/dl <1.1 [facility] [address] [place] [address] 08602 Aspartate Amino Transf (AST/SGOT) November 14, 2021 3:16pm 19 U/L 15-41 [facility] [address] [place] [address] 57712 Alanine Aminotransferase (ALT/SGPT) November 14, 2021 3:16pm 12 U/L 14-54 [facility] [address] [place] [address] 42181 Troponin T High Sensitivity November 13, 2021 [...] the JESUS score for the inpatient setting). [facility] [address] [place] [address] 67402 Troponin T High Sensitivity November 21, 2021 [...] the JESUS score for the inpatient setting). [facility] [address] [facility] 31469 Troponin T High Sensitivity November 29, 2021 [...] the JESUS score for the inpatient setting). [facility] [address] [place] [address] 88372 LY-Ycw-I-Type Natriuretic Peptide November 13, 2021 9:45pm 153 pg/mL 0-900 The half-life of plasma BNP is significantly increased in patients with compromised renal function. [facility] Lab [address] [place] [address] Total Protein November 14, 2021 3:16pm 7.6 g/dL 6.4-8.3 [facility] [address] [place] [address] 74960 Albumin November 14, 2021 3:16pm 3.5 g/dl 4.0-5.0 [facility] [address] [place] [address] 28766 Albumin/Globulin Ratio November 14, 2021 3:16pm 0.9 1.0-2.6 [facility] [address] [place] [address] 43433 Triglycerides Level November 14, 2021 3:16pm 179 mg/dL <150 151 - 199 mg/dL = Borderline High [facility] [address] [place] [address] 15653 Cholesterol Level November 14, 2021 3:16pm 189 mg/dl <199 <200 mg/dL = Desirable [facility] [address] [place] [address] 88197 LDL Cholesterol, Calculated November 14, 2021 3:16pm 117 mg/dl <129 [facility] [address] [place] [address] 54163 HDL Cholesterol November 14, 2021 3:16pm 36 mg/dL >40 < 40 mg/dl: Low HDL-cholestero l(major risk factor for CHD) >/= 60 mg/dl: High HDL-cholestero l(negative risk factor for CHD) HDL-cholestero l is affected by a number of factors, e.g., smoking, excercise, hormones, sex and age. [facility] [address] [place] [address] 55822 Cholesterol Ratio (LDL/HDL) November 14, 2021 3:16pm 3.3 LDL/HDL Interpretation : Ratio Men Women 1/2 Average 1.00 1.47 Average 3.55 3.22 2X Average 6.25 5.03 3X Average 7.99 6.14 [facility] [address] [place] [address] 06014 Cholesterol/HDL Ratio November 14, 2021 3:16pm 5.3 Cholesterol/HD L Interpretation : Ratio Men Women 1/2 Average 3.43 3.27 Average 4.97 4.44 2X Average 9.55 7.05 3X Average 23.39 11.04 [facility] [address] [place] [address] 72508 Alkaline Phosphatase November 14, 2021 3:16pm 47 U/L 35-104 [facility] [address] [place] [address] 92682 Thyroid Stimulating Hormone (Reflex November 14, 2021 3:16pm 1.95 uIU/mL 0.34-5.60 [facility] [address] [place] [address] 70705 Bedside Glucose November 15, 2021 8:35pm 133 mg/dl 70-100 NOTE: Any discrepancy between finger stick glucose result and patient's clinical presentation should be confirmed by the laboratory. [facility] [address] [place] [address] 11447 Bedside Glucose November 21, 2021 4:52pm 112 mg/dl 70-100 NOTE: Any discrepancy between finger stick glucose result and patient's clinical presentation should be confirmed by the laboratory. [facility] [address] [place] [address] 51345 Microbiology Results Procedure Source Result Collection Date/Time Result Date/Time Result Comment Performing Site Urine Culture Urine,Miri n Catch Mixed janis November 16, 2021 9:36am [facility] Clinical Labs [address] [facility] [address] Diagnostic Imaging Reports Report Dictated Date/Time Dictated By Status Radiology Report November 13, 2021 10:32pm Italia Bales MD completed [facility] [address] [place] [address] Patient Name: Alysa Luevano Medical Record#: [id number] 1 Address: [address] [place] [address] City/State/Zip: [place] [address]: Rhonda Rodrigues MD [facility] /Age/Sex: 1960/61/F Self Pay Admit/Reg Date: 11/13/[address]: Juvenal Fritz Location: ED.AH/ PCP: Agata Reza MD Date of Service: 11/13/21 Order (s): XR chest 1V portable CPT Code: 49254 Report Number: [id number] Reason for Exam: Chest Pain PROCEDURE INFORMATION: [...] By: Italia Bales MD 11/13/212231 TD/TT: 11/13/212231Tech: [id number] cc: CYNTHIA; ASHLEY* Agata Reza MD; Reyna Rodrigues MD Report Dictated Date/Time Dictated By Status Radiology Report November 13, 2021 11:42pm Italia Bales MD completed [facility] [address] [place] [address] Patient Name: Alysa Luevano Medical Record#: [id number] 1 Address: [address] [place] [address] City/State/Zip: [place] [address]: Rhonda Rodrigues MD [facility] /Age/Sex: 1960/61/F Self Pay Admit/Reg Date: 11/13/[address]: Juvenal Fritz Location: ED.AH/ PCP: Agata Reza MD Date of Service: 11/13/21 Order (s): CT head stroke wo contrast CPT Code: 02254 Report Number: [id number] Reason for Exam: R sided numbness, TIA [...] IMPRESSION: No acute intracranial abnormalities. ASSESSMENT: ASPECTS ([place] Stroke Program Early CT Score) is 10. This document has been electronically signed by [facility] Radiologist ITALIA BALES MD Dictated By: Italia Bales MD 11/13/212341 Signed By: Italia Bales MD 11/13/212342 TD/TT: 11/13/212341Tech: [id number] cc: CYNTHIA; ASHLEY* Agata Reza MD; Reyna Rodrigues MD Report Dictated Date/Time Dictated By Status Radiology Report November 13, 2021 11:43pm [place] [address] Patient Name: Alysa Luevano Medical Record#: [id number] 1 Address: [address] [place] [address] City/State/Zip: [place] [address]: Rhonda Rodrigues MD Insurance: [facility] (Medicaid) /Age/Sex: 1960/61/F Self Pay Admit/Reg Date: 11/13/[address]: Juvenal Fritz Location: ED.AH/ PCP: Agata Reza MD Date of Service: 11/13/21 Order (s): CT angio neck stroke CPT Code: 66723 Report Number: [id number] Reason for Exam: R sided numbness, TIA [...] 2021 12:24am Italia Bales MD completed [address] [address] Patient Name: Alysa Luevano Medical Record#: [id number] 1 Address: [address] [place] [address] City/State/Zip: [place] [address]: Rhonda Rodrigues MD Insurance: [facility] (Medicaid) /Age/Sex: 1960/61/F Self Pay Admit/Reg Date: 11/13/[address]: Juvenal Fritz Location: ED.AH/ PCP: Agata Reza MD Date of Service: 11/13/21 Order (s): CT angio head stroke CPT Code: 02642 Report Number: [id number] Reason for Exam: R sided numbness, TIA [...] 14, 2021 8:01am Jen[place] [address] Patient Name: Alysa Luevano Medical Record#: [id number] 1 Address: [address] [place] [address] City/State/Zip: [place] [address]: Chad Naqvi MD Insurance: [facility] (Medicaid) /Age/Sex: 1960/61/F Self Pay Admit/Reg Date: 11/14/[address]: Demarcus Grigsby MD [facility] PCP: Agata Reza MD Date of Service: 11/14/21 Order (s): Echo TTE comp w/dop w contrast CPT Code: C8929 Report Number: [id number] Reason for Exam: tia Transthoracic Echocardiography Report (TTE) Demographics Patient Name Bassem Watt Gender Female MR Number [id number] Date of 1960 Age 61 year(s) Room Number IR8686 Height 66 inches Date of study 11/14/2021 Weight 280.01 pounds Referring BSA 2.31 m^2 Interpreting MD Jeniffer Guardado MD BMI 45.19 kg/m^2 Fellow Ethologist Dia 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 Mild mitral regurgitation. No aortic stenosis. No aortic regurgitation. The aortic valve is not well visualized. Hynd-wb-fqaxdart tricuspid regurgitation. Pulmonary artery systolic pressure is [...] valve is not well visualized. TRICUSPID VALVE: Alzp-vw-zgdfngsi tricuspid regurgitation. Pulmonary artery systolic pressure is [...] Guardado MD 11/14/21 1641 TD/TT: 11/14/21 08Tech: [facility] cc: TESSIE; KRISTIN; ASHLEY* Demarcus Grigsby MD; Agata Reza MD; Jeniffer Guardado MD Report Dictated Date/Time Dictated By Status Radiology Report November 15, 2021 9:36am Jose Alberto Bangura MD completed [address] [address] Patient Name: Alysa Luevano Medical Record#: [id number] 1 Address: [address] [place] [address] City/State/Zip: [place] [address]: Chad Naqvi MD Insurance: [facility] (Medicaid) /Age/Sex: 1960/61/F Self Pay Admit/Reg Date: 11/14/[address]: Demarcus Grigsby MD [facility] PCP: Agata Reza MD Date of Service: 11/15/21 Order (s): MR head/brain wo contrast CPT Code: 80771 Report Number: [id number] Reason for Exam: tia ADDENDUM Impression to Dr. Chalo Naqvi on November 15, 2021 at 12:32 PM by [facility] PRA. Addendum Dictated By: Jose Alberto [...] Jose Alberto Bangura MD 11/15/2147 TD/TT: 11/15/21935Tech: [id number] cc: TESSIE; LUIS RAMIREZ* Demarcus Grigsby MD; Agata Reza MD; Taina Naqvi MD Report Dictated Date/Time Dictated By Status Electrocardiogram November 15, 2021 7:22pm Jeniffer Guardado MD completed [address] [address] Patient Name: Luevano,Alysa Medical Record#: [id number] 1 Address: [address] [place] [address] [facility]State/Zip: [place] [address]: Chad Naqvi MD [facility] /Age/Sex: 1960/61/F Self Pay Admit/Reg Date: 11/15/[address]: Juvenal Dubon [facility] P[facility]: Agata Reza MD Date of Service: 11/15/21 Order (s): EKG Electrocardiogram CPT Code: 78576 Report Number: [id number] Reason for Exam: PAIN JUNCTIONAL BRADYCARDIA with PACs Comparison Summary: No serial comparison made Summary: Abnormal ECG Dictated By: Jeniffer Guardado MD 11/15/211921 Signed By: Jeniffer Guardado MD 11/16/212047 TD/TT: 11/15/211921Tech: [email or web address] cc: LUIS RAMIREZ* Agata Reza MD; Taina Naqvi MD Report Dictated Date/Time Dictated By Status Radiology Report November 21, 2021 6:30pm [place] [address] Patient Name: Alysa Luevano Medical Record#: [id number] 1 Address: [address] [place] [address] City/State/Zip: [place] [address]: Haja Alcantara MD [facility] /Age/Sex: 1960/61/F Self Pay Admit/Reg Date: 11/21/[address]: Carroll castellon MD [facility] PCP: Agata Reza MD Date of Service: 11/21/21 Order (s): CT head/brain wo contrast CPT Code: 61506 Report Number: [id number] Reason for Exam: headache, recent CVa, right [...] 29, 2021 1:29pm Geo Gamble MD completed [facility] [address] [place] [address] Patient Name: Alysa Luevano Medical Record#: [id number] 1 Address: [address] [place] [address] City/State/Zip: [place] [address]: Rhonda Rodrigues MD Insurance: [employer] (Medicaid) /Age/Sex: 1960/61/F Self Pay Admit/Reg Date: 11/29/[address]: Juvenal Fritz Location: ED.AH/ PCP: Agata Reza MD Date of Service: 11/29/21 Order (s): XR chest 1V portable CPT Code: 50847 Report Number: [id number] Reason for Exam: chest pain PROCEDURE: XR [...] Gamble MD 11/29/21 1334 TD/TT: 11/29/21 1329Tech: [id number] cc: ANTHONY RAMIREZ* Agata Reza MD; Reyna Rodrigues MD Report Dictated Date/Time Dictated By Status Radiology Report November 29, 2021 1:46pm Amaury cuba MD completed [facility] [address] [place] [address] Patient Name: Alysa Luevano Medical Record#: [id number] 1 Address: [address] [place] [address] City/State/Zip: [place] [address]: Rhonda Rodrigues MD Insurance: [facility] et (Medicaid) /Age/Sex: 1960/61/F Self Pay Admit/Reg Date: 11/29/[address]: Juvenal Fritz Location: ED.AH/ PCP: Agata Reza MD Date of Service: 11/29/21 Order (s): CT head/brain wo contrast CPT Code: 41417 Report Number: [id number] Reason for Exam: known stroke, ?worsening r [...] Simpson MD 11/29/21 1401 TD/TT: 11/29/21 1346Tech: [id number] cc: CYNTHIA; ASHLEY* Agata Reza MD; Reyna [...] 12:53pm Insurance Providers Guarantor Alysa Luevano Address [address] [place] [address] Contact Info. Home Phone: Payer Policy Id Coverage Id Subscriber's Name Subscriber Id Effective Date Expiration Date [facility] (Medicaid) [id number] Alysa Luevano [id number] Encounters Encounter Location(s) Arrival/Admit Date Discharge/Depart Date Provider(s) Discharged Inpatient [facility] November 15, 2021 10:43am November 17, 2021 12:23pm Taina Naqvi MD Departed [facility] November 21, 2021 4:16pm November 21, 2021 8:18pm null Departed [facility] November 29, 2021 12:53pm November 29, 2021 5:56pm null Recent Diagnosis Onset Date Bradycardia Cerebrovascular disease Numbness TIA (transient ischemic attack) Weakness HTN (hypertension) Obesity Functional Status Observation Response Date Recorded Assistive Devices Cane November 14, 2021 10:59am Ambulation Distance November 11:08am Ambulation Tolerance Fair November 162021 11:06am Ambulation Tolerance Fair November 172021 11:08am Bathing Type Bath in a Bag with Setup [facility] [place] 11:06am Date of Last Bowel Movement 11/15/21 [facility] 2021 1:20am Oral Care Mouth Rinse November 16 8:30pm Toileting Ability Maximum Assistance November 172021 10:40am Mental Status Observation Response Date Recorded Arousable To Name November 17 11:41am Patient Behavior Appropriate November 17, 2021 11:41am Cooperative November 17 11:41am Comprehension Ability Understands Concepts [facility] 2021 11:41am Level of Consciousness Awake [...] months Rachna Norris MD Work Phone: [address] [facility] [address] Agata Reza MD Work Phone: [address] [address] Agata Reza MD Work Phone: [address] [address] Agata Reza MD Work Phone: [address] [address] Future Procedures Procedure Name Scheduled Date Hospital [...]
--- OUTSIDE RECORDS SUMMARY | 2022-08-06 05:07 | XMS_ITS | Continuity of Care Document ---
Author Name Unknown Address [address] [place] [address] Phone Organization [facility] Address [address] [place] [address] Phone Care Team Providers Care Animal Doctor Name Role Phone MD Agata Reza Primary Care Provider MD Reyna Rodrigues Emergency Provider Tabulating Clerk, Twan Other Provider Unavailable MD Taina Naqvi Attending Provider [phone] MD Ken Norrisim Other Provider MD Servando Alcantarauel Sheri Emergency Provider [phone] Chief Complaint and Reason for Visit Chief [...] to Admission Home Health Aide Sep [facility] 2021 1:03pm Living Situation [facility] Facility [facility] 2021 4:42pm Additional Data Assigned Sex Female Problems Active Problems Medical Problem Onset Date Status Numbness Active Bradycardia Active Cerebrovascular disease Active TIA (transient ischemic attack) Active Weakness Active HTN (hypertension) Active Obesity Active Medications Medication Status Dose Units Route Directions Qty Days St art Date End Date Instructions Cetirizine Active 10 MG PO DAILY [facility] 2021 12:00am Metoprolol Succinate Active 200 MG PO DAILY [facility] 2021 12:00am Chlorthalidon e Discontin ued 25 MG PO DAILY [facility] 2021 12:00am [facility] 2021 12:44a m Chlorthalidon e Active 75 MG PO DAILY [facility] 2021 12:00am Acetaminophen Active 500 MG PO DAILY [facility] 2021 12:00am Pantoprazole Active 40 MG PO DAILY [facility] 2021 12:00am Omeprazole Active 20 MG PO DAILY [facility] 2021 12:00am Verapamil Active 240 MG PO DAILY [facility] 2021 12:00am Fluticasone Propionate (Flovent Hfa) 220 mcg/actuation HFA aerosol inhaler Active 1 INH INH TWICE A DAY [facility] 2021 12:00am Albuterol Sulfate (Proair Hfa) 90 mcg/actuation HFA aerosol inhaler Active 1 INH INH EVERY 6 HOURS [facility] 2021 12:00am Lisinopril Active 40 MG PO DAILY [facility] 2021 12:00am Topiramate Active 100 MG PO DAILY [facility] 2021 12:00am Rosuvastatin Active 20 MG PO DAILY [facility] 2021 12:00am Bupropion Hcl Active 300 MG PO DAILY [facility] 2021 12:00am Cholecalcifer ol (Vitamin D3) (Vitamin D3) 125 mcg (5,000 unit) tablet Active 125 MCG PO DAILY [facility] 2021 12:00am Acetaminophen Active 650 MG PO THREE TIMES A DAY [facility] 2021 12:00am Clopidogrel Active 75 MG PO DAILY 30 Sept [facility] 2021 12:00am Procedures Procedure Date [...] Request November 13, 2021 10:48pm Added test [facility] [address] [place] [address] 30206 White Blood Count November 16, 2021 5:35am 11.5 X10 3/uL 4.5-11.0 [facility] [address] [place] [address] 08276 White Blood Count November 21, 2021 5:09pm 13.5 X10 3/uL 4.5-11.0 [facility] [address] [place] [address] 55634 Red Blood Count November 16, 2021 5:35am 4.28 X10 6/uL 3.70-5.00 [facility] [address] [place] [address] 99069 Red Blood Count November 21, 2021 5:09pm 4.70 X10 6/uL 3.70-5.00 [facility] [address] [place] [address] 85448 Hemoglobin November 16, 2021 5:35am 12.4 g/dl 11.0-16.0 [facility] [address] [place] [address] 28242 Hemoglobin November 21, 2021 5:09pm 13.9 g/dl 11.0-16.0 [facility] [address] [place] [address] 01278 Hematocrit November 16, 2021 5:35am 39.7 % 33.5-45.0 [facility] [address] [place] [address] 73285 Hematocrit November 21, 2021 5:09pm 42.3 % 33.5-45.0 [facility] [address] [facility] 480[address] Mean Corpuscular Volume November 16, 2021 5:35am 92.8 fl 80.0-100.0 [facility] [address] [facility] 05694 Mean Corpuscular Volume November 21, 2021 5:09pm 90.0 fl 80.0-100.0 [facility] [address] [place] [address] 75518 Mean Corpuscular Hemoglobin November 16, 2021 5:35am 29.0 pg 27.0-34.0 [facility] [address] [place] [address] 77306 Mean Corpuscular Hemoglobin November 21, 2021 5:09pm 29.6 pg 27.0-34.0 [facility] [address] [place] [address] 94709 Mean Corpuscular Hemoglobin Concent November 16, 2021 5:35am 31.2 g/dl 31.0-36.0 [facility] [address] [place] [address] 76323 Mean Corpuscular Hemoglobin Concent November 21, 2021 5:09pm 32.9 g/dl 31.0-36.0 [facility] [address] [place] [address] 19553 Red Cell Distribution Width November 16, 2021 5:35am 13.7 % 11.5-15.0 [facility] [address] [place] [address] 36020 Red Cell Distribution Width November 21, 2021 5:09pm 13.8 % 11.5-15.0 [facility] [address] [place] [address] 45298 Platelet Count November 16, 2021 5:35am 347 X10 3/uL 150-400 [facility] [address] [place] [address] 27019 Platelet Count November 21, 2021 5:09pm 404 X10 3/uL 150-400 [facility] [address] [place] [address] 52512 Immature Granulocyte % (Auto) November 16, 2021 5:35am 1.5 % [facility] [address] [place] [address] 36771 Immature Granulocyte % (Auto) November 21, 2021 5:09pm 0.7 % [facility] [address] [place] [address] 59263 Neutrophils (%) (Auto) November 16, 2021 5:35am 65.6 % [facility] [address] [place] [address] 72676 Neutrophils (%) (Auto) November 21, 2021 5:09pm 70.0 % [facility] [address] [place] [address] 89403 Lymphocytes (%) (Auto) November 16, 2021 5:35am 26.4 % [facility] [address] [place] [address] 10950 Lymphocytes (%) (Auto) November 21, 2021 5:09pm 21.6 % [facility] [address] [place] [address] 09162 Monocytes (%) (Auto) November 16, 2021 5:35am 5.8 % [facility] [address] [place] [address] 31575 Monocytes (%) (Auto) November 21, 2021 5:09pm 6.7 % [facility] [address] [place] [address] 64392 Eosinophils (%) (Auto) November 16, 2021 5:35am 0.3 % [facility] [address] [place] [address] 26977 Eosinophils (%) (Auto) November 21, 2021 5:09pm 0.6 % [facility] [address] [place] [address] 00607 Basophils (%) (Auto) November 16, 2021 5:35am 0.4 % [facility] [address] [place] [address] 55257 Basophils (%) (Auto) November 21, 2021 5:09pm 0.4 % [facility] [address] [place] [address] 77749 Immature Granulocyte # (Auto) November 16, 2021 5:35am 0.17 X10 3/uL 0.00-0.09 [facility] [address] [place] [address] 13763 Immature Granulocyte # (Auto) November 21, 2021 5:09pm 0.10 X10 3/uL 0.00-0.09 [facility] [address] [place] [address] 99399 Neutrophils # (Auto) November 16, 2021 5:35am 7.5 X10 3/uL 1.5-7.8 [facility] [address] [place] [address] 50150 Neutrophils # (Auto) November 21, 2021 5:09pm 9.4 X10 3/uL 1.5-7.8 [facility] [address] [place] [address] 77060 Lymphocytes # (Auto) November 16, 2021 5:35am 3.0 X10 3/uL 1.0-4.8 [facility] [address] [place] [address] 43852 Lymphocytes # (Auto) November 21, 2021 5:09pm 2.9 X10 3/uL 1.0-4.8 [facility] [address] [place] [address] 49101 Monocytes # (Auto) November 16, 2021 5:35am 0.7 X10 3/uL 0.0-0.8 [facility] [address] [place] [address] 67627 Monocytes # (Auto) November 21, 2021 5:09pm 0.9 X10 3/uL 0.0-0.8 [facility] [address] [place] [address] 45139 Eosinophils # (Auto) November 16, 2021 5:35am 0.0 X10 3/uL 0.0-0.5 [facility] [address] [place] [address] 98987 Eosinophils # (Auto) November 21, 2021 5:09pm 0.1 X10 3/uL 0.0-0.5 [facility] [address] [place] [address] 61415 Basophils # (Auto) November 16, 2021 5:35am 0.1 X10 3/uL 0.0-0.2 [facility] [address] [place] [address] 84119 Basophils # (Auto) November 21, 2021 5:09pm 0.1 X10 3/uL 0.0-0.2 [facility] [address] [place] [address] 96290 Hemoglobin A1c November 14, 2021 3:16pm 5.8 4.3-5.9 [facility] [address] [place] [address] 76483 Estimated Average Glucose (eAG) November 14, 2021 3:16pm 120 mg/dl [facility] [address] [place] [address] 74604 Nucleated Red Blood Cells % November 16, 2021 5:35am 0.0 /100 WBC 0.0-0.0 [facility] [address] [place] [address] 87057 Nucleated Red Blood Cells % November 21, 2021 5:09pm 0.0 /100 WBC 0.0-0.0 [facility] [address] [place] [address] 38042 Urine Color November 14, 2021 3:52am Yellow Yellow [facility] [address] [place] [address] 44609 Urine Clarity November 14, 2021 3:52am Clear Clear [facility] [address] [place] [address] 29953 Urine pH November 14, 2021 3:52am 5.0 5.0-8.0 [facility] [address] [place] [address] 91438 Urine Specific [place] November 14, 2021 3:52am >= 1.030 1.005-1.03 0 [facility] [address] [place] [address] 08118 Urine Blood November 14, 2021 3:52am Negative mg/dL Negative [facility] [address] [place] [address] 21837 Urine Protein November 14, 2021 3:52am Negative mg/dL Negative [facility] [address] [place] [address] 17369 Urine Glucose (UA) November 14, 2021 3:52am Negative mg/dl Negative [facility] [address] [place] [address] 78865 Urine Ketones November 14, 2021 3:52am Negative mg/dL Negative [facility] [address] [place] [address] 88101 Urine Nitrate November 14, 2021 3:52am Negative Negative [facility] [address] [place] [address] 90078 Urine Bilirubin November 14, 2021 3:52am Negative mg/dL Negative [facility] [address] [place] [address] 95981 Urine Urobilinogen November 14, 2021 3:52am 0.2 E.U./dL Normal [facility] [address] [place] [address] 96584 Urine Leukocyte Esterase November 14, 2021 3:52am Moderate mg/dL Negative [facility] [address] [place] [address] 09362 Urine RBC (Auto) November 14, 2021 3:52am None seen /HPF 0-2 [facility] [address] [place] [address] 51366 Urine WBC (Auto) November 14, 2021 3:52am 11-25 /HPF 0-5 [facility] [address] [place] [address] 42502 Urine Epithelial Cells (Auto) November 14, 2021 3:52am 6-10 /HPF 0-5 [facility] [address] [place] [address] 68521 Urine Casts (Auto) November 14, 2021 3:52am None seen /LPF None Seen [facility] [address] [place] [address] 97277 Urine Bacteria (Auto) November 14, 2021 3:52am Rare /HPF None Seen [facility] [address] [place] [address] 79110 Sodium Level November 16, 2021 5:35am 137 mmol/L 137-146 [facility] [address] [place] [address] 53688 Sodium Level November 21, 2021 5:09pm 135 mmol/L 137-146 [facility] [address] [place] [address] 00352 Potassium Level November 16, 2021 5:35am 4.2 mmol/L 3.5-5.3 [facility] [address] [place] [address] 55323 Potassium Level November 21, 2021 5:09pm 4.7 mmol/L 3.5-5.3 [facility] [address] [place] [address] 23431 Chloride Level November 16, 2021 5:35am 99 mmol/L 98-107 [facility] [address] [place] [address] 14620 Chloride Level November 21, 2021 5:09pm 101 mmol/L 98-107 [facility] [address] [place] [address] 12053 Carbon Dioxide Level November 16, 2021 5:35am 27 mmol/L 23-32 [facility] [address] [place] [address] 78399 Carbon Dioxide Level November 21, 2021 5:09pm 22 mmol/L 23-32 [facility] [address] [facility] 69268 Anion Gap November 16, 2021 5:35am 11 mmol/L 07-23 [facility] [address] [facility] 52222 Anion Gap November 21, 2021 5:09pm 12 mmol/L 07-23 [facility] [address] [place] [address] 37197 Blood Urea Nitrogen November 16, 2021 5:35am 31 mg/dl 08-02 [facility] [address] [place] [address] 91163 Blood Urea Nitrogen November 21, 2021 5:09pm 49 mg/dl 08-02 [facility] [address] [place] [address] 35026 Creatinine November 16, 2021 5:35am 1.2 mg/dL 0.5-1.1 [facility] [address] [place] [address] 39014 Creatinine November 21, 2021 5:09pm 1.3 mg/dL 0.5-1.1 [facility] [address] [place] [address] 05562 Estimated Creatinine Clearance November 16, 2021 5:35am 65.4 ml/min This value is calculated by Cockcroft Gault Equation using ideal body weight. This result is dependent on an accurate patient height and weight which is obtained from patients medical record. Cockcroft, D.W. and M.H. Gault. Prediction of creatinine clearance from serum creatinine. Nephron. 1975. 16(1):31-41. [facility] [address] [place] [address] 37674 Estimated Creatinine Clearance November 21, 2021 5:09pm 56.8 ml/min This value is calculated by Cockcroft Gault Equation using ideal body weight. This result is dependent on an accurate patient height and weight which is obtained from patients medical record. Cockcroft, D.W. and M.H. Gault. Prediction of creatinine clearance from serum creatinine. Nephron. 1975. 16(1):31-41. [facility] [address] [place] [address] 72719 Estimated GFR () November 16, 2021 5:35am 56 >60 [facility] [address] [place] [address] 58416 Estimated GFR () November 21, 2021 5:09pm 51 >60 [facility] [address] [place] [address] 74590 Estimated GFR (Non- November 16, 2021 5:35am 48 >60 [facility] [address] [place] [address] 84658 Estimated GFR (Non- November 21, 2021 5:09pm 44 >60 [facility] [address] [place] [address] 75865 BUN/Creatinine Ratio November 16, 2021 5:35am 25.8 10.0-20.0 [facility] [address] [place] [address] 57489 BUN/Creatinine Ratio November 21, 2021 5:09pm 37.7 10.0-20.0 [facility] [address] [place] [address] 99152 Glucose Level November 16, 2021 5:35am 97 mg/dL 70-100 [facility] [address] [place] [address] 97048 Glucose Level November 21, 2021 5:09pm 114 mg/dL 70-100 [facility] [address] [place] [address] 89397 Calcium Level November 16, 2021 5:35am 9.6 mg/dl 8.6-10.3 [facility] [address] [place] [address] 18500 Calcium Level November 21, 2021 5:09pm 10.0 mg/dl 8.6-10.3 [facility] [address] [place] [address] 97865 Magnesium Level November 16, 2021 5:35am 2.5 mg/dL 1.8-2.5 [facility] [address] [place] [address] 11754 Total Bilirubin November 14, 2021 3:16pm < 0.2 mg/dl <1.1 [facility] [address] [place] [address] 46695 Aspartate Amino Transf (AST/SGOT) November 14, 2021 3:16pm 19 U/L 15-41 [facility] [address] [place] [address] 22900 Alanine Aminotransferase (ALT/SGPT) November 14, 2021 3:16pm 12 U/L 14-54 [facility] [address] [place] [address] 23341 Troponin T High Sensitivity November 13, 2021 [...] the JESUS score for the inpatient setting). [facility] [address] [facility] 96756 Troponin T High Sensitivity November 21, 2021 [...] the JESUS score for the inpatient setting). [facility] [address] [place] [address] 08214 AM-Enw-E-Type Natriuretic Peptide November 13, 2021 9:45pm 153 pg/mL 0-900 The half-life of plasma BNP is significantly increased in patients with compromised renal function. [facility] [address] [place] [address] 64768 Total Protein November 14, 2021 3:16pm 7.6 g/dL 6.4-8.3 [facility] [address] [place] [address] 83691 Albumin November 14, 2021 3:16pm 3.5 g/dl 4.0-5.0 [facility] [address] [place] [address] 71896 Albumin/Globulin Ratio November 14, 2021 3:16pm 0.9 1.0-2.6 [facility] [address] [place] [address] 11559 Triglycerides Level November 14, 2021 3:16pm 179 mg/dL <150 151 - 199 mg/dL = Borderline High [facility] [address] [place] [address] 84977 Cholesterol Level November 14, 2021 3:16pm 189 mg/dl <199 <200 mg/dL = Desirable [facility] [address] [place] [address] 46823 LDL Cholesterol, Calculated November 14, 2021 3:16pm 117 mg/dl <129 [facility] [address] [place] [address] 15816 HDL Cholesterol November 14, 2021 3:16pm 36 mg/dL >40 < 40 mg/dl: Low HDL-cholestero l(major risk factor for CHD) >/= 60 mg/dl: High HDL-cholestero l(negative risk factor for CHD) HDL-cholestero l is affected by a number of factors, e.g., smoking, excercise, hormones, sex and age. [facility] [address] [place] [address] 16972 Cholesterol Ratio (LDL/HDL) November 14, 2021 3:16pm 3.3 LDL/HDL Interpretation : Ratio Men Women 1/2 Average 1.00 1.47 Average 3.55 3.22 2X Average 6.25 5.03 3X Average 7.99 6.14 [facility] [address] [place], [place] [address] Cholesterol/HDL Ratio November 14, 2021 3:16pm 5.3 Cholesterol/HD L Interpretation : Ratio Men Women 1/2 Average 3.43 3.27 Average 4.97 4.44 2X Average 9.55 7.05 3X Average 23.39 11.04 [facility] [address] [place] [address] 94951 Alkaline Phosphatase November 14, 2021 3:16pm 47 U/L 35-104 [facility] [address] [place], [place] [address] Thyroid Stimulating Hormone (Reflex November 14, 2021 3:16pm 1.95 uIU/mL 0.34-5.60 [facility] [address] [place] [address] 72804 Bedside Glucose November 15, 2021 8:35pm 133 mg/dl 70-100 NOTE: Any discrepancy between finger stick glucose result and patient's clinical presentation should be confirmed by the laboratory. [facility] [address] [place], [place] [address] Bedside Glucose November 21, 2021 4:52pm 112 mg/dl 70-100 NOTE: Any discrepancy between finger stick glucose result and patient's clinical presentation should be confirmed by the laboratory. [facility] [address] [place] [address] 02192 Microbiology Results Procedure Source Result Collection Date/Time Result Date/Time Result Comment Performing Site Urine Culture Urine,Miri n Catch Mixed janis November 16, 2021 9:36am [facility] [address] [facility] [address] Diagnostic Imaging Reports Report Dictated Date/Time Dictated By Status Radiology Report November 13, 2021 10:32pm [place] [address] Patient Name: Alysa Luevano Medical Record#: [id number] 1 Address: [address] [place] [address] City/State/Zip: [place] [address]: Rhonda Rodrigues MD Insurance: [facility] et (Medicaid) /Age/Sex: 1960/61/F Self Pay Admit/Reg Date: 11/13/[address]: Juvenal Fritz Location: ED.AH/ PCP: Agata Reza MD Date of Service: 11/13/21 Order (s): XR chest 1V portable CPT Code: 20640 Report Number: [id number] Reason for Exam: Chest Pain PROCEDURE INFORMATION: [...] By: Italia Bales MD 11/13/212231 TD/TT: 11/13/212231Tech: [id number] cc: ANTHONY RAMIREZ* Agata Reza MD; Reyna Rodrigues MD Report Dictated Date/Time Dictated By Status Radiology Report November 13, 2021 11:42pm [place] [address] Patient Name: Alysa Luevano Medical Record#: [id number] 1 Address: [address] [place] [address] City/State/Zip: [place] [address]: Rhonda Rodrigues MD Insurance: [facility] (Medicaid) /Age/Sex: 1960/61/F Self Pay Admit/Reg Date: 11/13/[address]: Juvenal Fritz Location: ED.AH/ PCP: Agata Reza MD Date of Service: 11/13/21 Order (s): CT head stroke wo contrast CPT Code: 68702 Report Number: [id number] Reason for Exam: R sided numbness, TIA ADDENDUM The findings were verbally communicated via telephone conference with Reyna Rodrigues at 11:46 PM EDT on 11/13/2021. The findings were acknowledged and understood. This document has been electronically signed by [facility] Radiologist ITALIA BALES MD Addendum Dictated By: [...] 13, 2021 11:43pm Italia Bales MD completed [address] [address] Patient Name: Luevano,Alysa Medical Record#: [id number] 1 Address: [address] [place] [address] City/[place] [address]: Rhonda Rodrigues MD Insurance: [facility] (Medicaid) /Age/Sex: 1960/61/F Self Pay Admit/Reg Date: 11/13/[address]: Juvenal Fritz Location: ED.AH/ PCP: Agata Reza MD Date of Service: 11/13/21 Order (s): CT angio neck stroke CPT Code: 95469 Report Number: [id number] Reason for Exam: R sided numbness, TIA [...] This document has been electronically signed by [facility] Radiologist ITALIA BALES MD Dictated By: Italia Bales MD 11/13/212342 Signed By: Italia Bales MD 11/13/212343 TD/TT: 11/13/212342Tech: [id number] cc: CYNTHIA; ASHLEY* Agata Reza MD; Reyna Rodrigues MD Report Dictated Date/Time Dictated By Status Radiology Report November 14, 2021 12:24am [place] [address] Patient Name: Alysa Luevano Medical Record#: [id number] 1 Address: [address] [place] [address] City/State/Zip: [place] [address]: Rhonda Rodrigues MD Insurance: [facility] (Medicaid) /Age/Sex: 1960/61/F Self Pay Admit/Reg Date: 11/13/[address]: Juvenal Fritz Location: ED.[facility]/ PCP: Agata Reza MD Date of Service: 11/13/21 Order (s): CT angio head stroke CPT Code: 98881 Report Number: [id number] Reason for Exam: R sided numbness, TIA ADDENDUM The findings were verbally communicated via telephone conference with Reyna Rodriguse at 12:26 AM EDT on 11/14/2021. The findings were acknowledged and understood. This document has been electronically signed by [facility] Radiologist ITALIA BALES MD Addendum Dictated By: [...] 14, 2021 8:01am Jeniffer Guardado MD completed [address] [address] Patient Name: Alysa Luevano Medical Record#: [id number] 1 Address: [address] [place] [address] City/State/Zip: [place] [address]: Chad Naqvi MD Insurance: [employer] (Medicaid) /Age/Sex: 1960/61/F Self Pay Admit/Reg Date: 11/14/[address]: Demarcus Grigsby MD Location: [address] PCP: Agata Reza MD Date of Service: 11/14/21 Order (s): Echo TTE comp w/dop w contrast CPT Code: C8929 Report Number: [id number] Reason for Exam: tia Transthoracic Echocardiography Report (TTE) Demographics Patient Name Bassem Watt Gender Female MR Number [id number] Date of 1960 Age 61 year(s) Room Number RN4652 Height 66 inches Date of study 11/14/2021 Weight 280.01 pounds Referring MD BSA 2.31 m^2 Interpreting MD Jeniffer Guardado MD BMI 45.19 kg/m^2 Fellow Rehabilitation Engineer Dia Hampton [facility] Conclusions Summary EF Estimated: 60% Leaflets of mitral valve are mildly thickened. Mild mitral regurgitation. No aortic stenosis. No aortic regurgitation. The aortic valve is not well visualized. Konm-iu-nmdokmjr tricuspid regurgitation. Pulmonary artery systolic pressure is [...] valve is not well visualized. TRICUSPID VALVE: Mwuy-eg-ifbxohld tricuspid regurgitation. Pulmonary artery systolic pressure is [...] cc: TESSIE; KRISTIN; ASHLEY* Demarcus Grigsby MD; Agtaa Reza MD; Jeniffer Guardado MD Report Dictated Date/Time Dictated By Status Radiology Report November 15, 2021 9:36am Jose Alberto Bangura MD completed [address] [address] Patient Name: Alysa Luevano Medical Record#: [id number] 1 Address: [address] [place] [address] City/State/Zip: [place] [address]: Chad Naqvi MD Insurance: [facility] (Medicaid) /Age/Sex: 1960/61/F Self Pay Admit/Reg Date: 11/14/[address]: Demarcus Grigsby MD Location: [address] PCP: Agata Reza MD Date of Service: 11/15/21 Order (s): MR head/brain wo contrast CPT Code: 39611 Report Number: [id number] Reason for Exam: tia ADDENDUM Impression to [...] Jose Alberto Bangura MD 11/15/21946 TD/TT: 11/15/21935Tech: [id number] cc: TESSIE; LUIS RAMIREZ* Demarcus Grigsby MD; Agata Reza MD; Taina Naqvi MD Report Dictated Date/Time Dictated By Status Electrocardiogram November 15, 2021 7:22pm [place] [address] Patient Name: Alysa Luevano Medical Record#: [id number] 1 Address: [address] [place] [address] City/State/Zip: [place] [address]: Chad Naqvi MD Insurance: [facility] (Medicaid) /Age/Sex: 1960/61/F Self Pay Admit/Reg Date: 11/15/[address]: Juvenal Dubon Location: [facility] PCP: Agata Reza MD Date of Service: 11/15/21 Order (s): EKG Electrocardiogram CPT Code: 07840 Report Number: [id number] Reason for Exam: PAIN JUNCTIONAL BRADYCARDIA with PACs Comparison Summary: No serial comparison made Summary: Abnormal ECG Dictated By: Jeniffer Guardado MD 11/15/211921 Signed By: Jeniffer Guardado MD 11/16/212047 TD/TT: 11/15/211921Tech: [email or web address] cc: THEODORA; ASHLEY* Agata Reza MD; Taina Naqvi MD Report Dictated Date/Time Dictated By Status Radiology Report November 21, 2021 6:30pm Emmanuel La MD completed [facility] [address] [place] [address] Patient Name: Alysa Luevano Medical Record#: [id number] 1 Address: [address] [place] [address] City/State/Zip: [place] [address]: Haja Alcantara MD Insurance: [facility] (Medicaid) /Age/Sex: 1960/61/F Self Pay Admit/Reg Date: 11/21/[address]: Carroll castellon MD Location: [facility]/ PCP: Agata Reza MD Date of Service: 11/21/21 Order (s): CT head/brain wo contrast CPT Code: 80783 Report Number: [id number] Reason for Exam: headache, recent CVa, right [...] 4:18pm Insurance Providers Guarantor Alysa Luevano Address [address] [place] [address] Contact Info. Home Phone: Payer Policy Id Coverage Id Subscriber's Name Subscriber Id Effective Date Expiration Date [facility] (Medicaid) [id number] Alysa Luevano [id number] Encounters Encounter Location(s) Arrival/Admit Date Discharge/Depart Date Provider(s) Discharged Inpatient [facility] November 15, 2021 10:43am November 17, 2021 12:23pm Taina Naqvi MD Departed Emergency [facility] November 21, 2021 4:16pm November 21, [...] 6 months Rachna Norris MD Work Phone: [address] [place] [address] Agata Reza MD Work Phone: [address] [address] Agata Reza MD Work Phone: [address] [address] Future Procedures Procedure Name Scheduled Date Hospital [...]
--- OUTSIDE RECORDS SUMMARY | 2022-08-06 05:07 | XMS_ITS | Continuity of Care Document ---
Author Name Unknown Address [address] [place] [address] Phone Organization [facility] Address [address] [place] [address] Phone Care Team Providers Care Responder Name Role Phone MD Kerri Rezaly Primary Care Provider [phone] MD Srinivas Murry Emergency Provider MD Kwame Erickson Other Provider [phone] MD Pa Cooper Attending Provider [phone] MD Edilberto Quevedo Other Provider Chief Complaint [...] Prior to Admission Home Health Aide Iliana [facility] 2021 12:03pm Living Situation Rn Float Care Facility [facility] 2021 3:42pm Living Situation Apartment [...] Cetirizine Discontin ued 10 MG PO DAILY [facility] 2021 11:00pm y 2022 4:22pm Metoprolol Succinate Discontin ued 200 MG PO DAILY [facility] 2021 11:00pm Marua y 2022 4:22pm Chlorthalidon e Discontin ued 25 MG PO DAILY [facility] 2021 11:00pm Sept inessa 2021 11:44p m Chlorthalidon e Discontin ued 75 MG PO DAILY [facility] 2021 11:00pm Marua y 2022 4:20pm Acetaminophen Active 500 MG PO TWICE A DAY [facility] 2021 11:00pm Pantoprazole Discontin ued 40 MG PO DAILY [facility] 2021 11:00pm Marua y 2022 4:24pm Omeprazole Active 20 MG PO DAILY [facility] 2021 11:00pm Verapamil Discontin ued 240 MG PO DAILY [facility] 2021 11:00pm Marua y 2022 10:28a m Fluticasone Propionate (Flovent Hfa) 220 mcg/actuation HFA aerosol inhaler Active 1 INH INH DAILY [facility] 2021 11:00pm Albuterol Sulfate (Proair Hfa) 90 mcg/actuation HFA aerosol inhaler Active 1 INH INH EVERY 6 HOURS [facility] 2021 11:00pm Lisinopril Active 40 MG PO DAILY [facility] [place] 11:00pm Topiramate Discontin ued 100 MG PO DAILY [facility] 2021 11:00pm Marua y 2022 4:24pm Rosuvastatin Discontin ued 20 MG PO DAILY [facility] 2021 11:00pm Marua y 2022 4:53pm Bupropion Hcl Discontin ued 300 MG PO DAILY [facility] 2021 11:00pm Maruar y 2022 4:23pm Cholecalcifer ol (Vitamin D3) (Vitamin D3) 125 mcg (5,000 unit) tablet Active 125 MCG PO DAILY [facility] 2021 11:00pm Acetaminophen Discontin ued 650 MG PO THREE TIMES A DAY [facility] 2021 11:00pm y 2022 4:22pm Clopidogrel Active 75 MG PO DAILY 30 er 2021 11:00pm Atorvastatin Discontin ued 40 MG PO DAILY April 02, 2022 12:00am May 17, 2022 12:08p m Chlorthalidon e Discontin ued 25 MG PO DAILY April 02, 2022 12:00am 2022 10:29a m Rosuvastatin Active 20 MG PO DAILY [facility] 2022 12:00am Meclizine Active 12.5 MG [...] MG PO DAILY May 16, 2022 8:19pm [place]-3 Fatty Acids-Fish Oil Active 1 CAP PO [...] 17, 2022 5:51am 10.5 X10 3/uL 4.5-11.0 [facility] [id number] [address] [place] [address] 63057 Red Blood Count May 17, 2022 5:51am 4.16 X10 6/uL 3.70-5.00 [facility] [id number] [address] [place] [address] 59935 Hemoglobin May 17, 2022 5:51am 12.3 g/dl 11.0-16.0 [facility] [id number] [address] [place] [address] 20483 Hematocrit May 17, 2022 5:51am 38.5 % 33.5-45.0 [facility] [id number] [address] [place] [address] 60986 Mean Corpuscular Volume May 17, 2022 5:51am 92.5 fl 80.0-100.0 [facility] [id number] [address] [place] [address] 47946 Mean Corpuscular Hemoglobin May 17, 2022 5:51am 29.6 pg 27.0-34.0 [facility] [id number] [address] [place] [address] 04322 Mean Corpuscular Hemoglobin Concent May 17, 2022 5:51am 31.9 g/dl 31.0-36.0 [facility] [id number] [address] [place] [address] 59639 Red Cell Distribution Width May 17, 2022 5:51am 12.1 % 11.5-15.0 [facility] [id number] [address] [place] [address] 15642 Platelet Count May 17, 2022 5:51am 333 X10 3/uL 150-400 [facility] [id number] [address] [place] [address] 02414 Immature Granulocyte % (Auto) May 17, 2022 5:51am 0.8 % [facility] [id number] [address] [place] [address] 09841 Neutrophils (%) (Auto) May 17, 2022 5:51am 63.5 % [facility] [id number] [address] [place] [address] 97745 Lymphocytes (%) (Auto) May 17, 2022 5:51am 27.3 % [facility] [id number] [address] [place] [address] 18279 Monocytes (%) (Auto) May 17, 2022 5:51am 6.9 % [facility] [id number] [address] [place] [address] 96889 Eosinophils (%) (Auto) May 17, 2022 5:51am 1.0 % [facility] [id number] [address] [place] [address] 13255 Basophils (%) (Auto) May 17, 2022 5:51am 0.5 % [facility] [id number] [address] [place] [address] 06657 Immature Granulocyte # (Auto) May 17, 2022 5:51am 0.08 X10 3/uL 0.00-0.09 [facility] [id number] [address] [place] [address] 38973 Neutrophils # (Auto) May 17, 2022 5:51am 6.7 X10 3/uL 1.5-7.8 [facility] [id number] [address] [place] [address] 77606 Lymphocytes # (Auto) May 17, 2022 5:51am 2.9 X10 3/uL 1.0-4.8 [facility] [id number] [address] [place] [address] 18319 Monocytes # (Auto) May 17, 2022 5:51am 0.7 X10 3/uL 0.0-0.8 [facility] [id number] [address] [facility] [address] Eosinophils # (Auto) May 17, 2022 5:51am 0.1 X10 3/uL 0.0-0.5 [facility] [id number] [address] [facility] [address] Basophils # (Auto) May 17, 2022 5:51am 0.1 X10 3/uL 0.0-0.2 [facility] [id number] [address] [place] [address] 49018 Hemoglobin A1c May 17, 2022 5:51am 5.5 4.3-5.9 [facility] [id number] [address] [place] [address] 98241 Estimated Average Glucose (eAG) May 17, 2022 5:51am 111 mg/dl [facility] [id number] [address] [place], [place] [address] Nucleated Red Blood Cells % May 17, 2022 5:51am 0.0 /100 WBC 0.0-0.0 [facility] [id number] [address] [place] [address] 59404 Prothrombin Time May 16, 2022 6:57pm 10.6 Seconds 9.3-12.1 [facility] [id number] [address] [place] [address] Prothromb Time International Ratio May 16, 2022 6:57pm 1.0 0.9-1.2 Reference Interval is for non-anticoagul ated patients.Sugcamilo sted INR Therapeutic Range for Vitamin K antogonist therapy:LEVELS OF THERAPY INDICATIONS TARGET INR RANGEStandard Dose Venous Thrombosis, 2.0 - 3.0 Atrial Fibrillation, Pulmonary Embolism. High Dose Valvular Heart Disease, 2.5 - 3.5 Mechanical Heart, Intracardiac Thrombosis. [facility] [id number] [address] [place] [address] 14938 Urine Color May 16, 2022 10:53pm Yellow Yellow [facility] [id number] [address] [place], [place] [address] Urine Clarity May 16, 2022 10:53pm Clear Clear [facility] [id number] [address] [place] [address] 44499 Urine pH May 16, 2022 10:53pm 7.0 5.0-8.0 [facility] [id number] [address] [place] [address] 25700 Urine Specific Webster May 16, 2022 10:53pm 1.015 1.005-1.03 0 [facility] [id number] [address] [place] [address] 82803 Urine Blood May 16, 2022 10:53pm Trace mg/dL Negative [facility] [id number] [address] [place] [address] 42693 Urine Protein May 16, 2022 10:53pm Negative mg/dL Negative [facility] [id number] [address] [place] [address] 92110 Urine Glucose (UA) May 16, 2022 10:53pm Negative mg/dl Negative [facility] [id number] [address] [place] [address] 58488 Urine Ketones May 16, 2022 10:53pm Negative mg/dL Negative [facility] [id number] [address] [place] [address] 08388 Urine Nitrate May 16, 2022 10:53pm Negative Negative [facility] [id number] [address] [place] [address] 47925 Urine Bilirubin May 16, 2022 10:53pm Negative mg/dL Negative [facility] [id number] [address] [place] [address] 44420 Urine Urobilinogen May 16, 2022 10:53pm 0.2 E.U./dL Normal [facility] [id number] [address] [place] [address] 52948 Urine Leukocyte Esterase May 16, 2022 10:53pm Moderate mg/dL Negative [facility] [id number] [address] [place] [address] 77051 Urine RBC (Auto) May 16, 2022 10:53pm None seen /HPF 0-2 [facility] [id number] [address] [place] [address] 14496 Urine WBC (Auto) May 16, 2022 10:53pm 0-5 /HPF 0-5 [facility] [id number] [address] [facility] [address] Urine Epithelial Cells (Auto) May 16, 2022 10:53pm 0-5 /HPF 0-5 [facility] [id number] [address] [facility] [address] Urine Casts (Auto) May 16, 2022 10:53pm None seen /LPF None Seen [facility] [id number] [address] [place] [address] 47280 Urine Bacteria (Auto) May 16, 2022 10:53pm Rare /HPF None Seen [facility] [id number] [address] [place] [address] 87604 Sodium Level May 17, 2022 5:51am 133 mmol/L 137-146 [facility] [id number] [address] [place] [address] 55854 Potassium Level May 17, 2022 5:51am 3.8 mmol/L 3.5-5.3 Specimen hemolyzed, results affected [facility] [id number] [address] [place] [address] 84010 Chloride Level May 17, 2022 5:51am 96 mmol/L 98-107 [facility] [id number] [address] [place] [address] 48988 Carbon Dioxide Level May 17, 2022 5:51am 24 mmol/L 23-32 [facility] [id number] [address] [place] [address] 07511 Anion Gap May 17, 2022 5:51am 13 mmol/L 5-15 [facility] [id number] [address] [place] [address] 80991 Blood Urea Nitrogen May 17, 2022 5:51am 24 mg/dl 5-25 [facility] [id number] [address] [place] [address] 16736 Creatinine May 17, 2022 5:51am 0.7 mg/dL 0.5-1.1 [facility] [id number] [address] [place] [address] 11622 Estimated Creatinine Clearance May 17, 2022 5:51am 106.9 ml/min This value is calculated by Cockcroft Gault Equation using ideal body weight. This result is dependent on an accurate patient height and weight which is obtained from patients medical record. Louie Morales. and M.H. Gamauricio. Prediction of creatinine clearance from serum creatinine. Nephron. 1976. 16(1):31-41. [facility] [id number] [address] [place] [address] Estimat Glomerular Filtration Rate May 17, 2022 5:51am 97 >90 Reported eGFR is based on the CKD-EPI 2020 equation that does not use a race coefficient. Additional information can be found at:04-20-8261_ [email or web address] [email or web address].pdf ([email or web address]) [facility] [id number] [address] [place] [address] BUN/Creatinine Ratio May 17, 2022 5:51am 34.3 10.0-20.0 [facility] [id number] [address] [place] [address] Glucose Level May 17, 2022 5:51am 83 mg/dL 70-100 [facility] [id number] [address] [place] [address] Calcium Level May 17, 2022 5:51am 9.7 mg/dl 8.6-10.3 [facility] [id number] [address] [place] [address] Total Bilirubin May 17, 2022 5:51am 0.3 mg/dl <1.1 [facility] [id number] [address] [place] [address] Aspartate Amino Transf (AST/SGOT) May 17, 2022 5:51am 17 U/L 15-41 Specimen hemolyzed, results affected, evaluate with caution. [facility] [id number] [address] [place], [place] [address] Alanine Aminotransferase (ALT/SGPT) May 17, 2022 5:51am 12 U/L 14-54 [facility] [id number] [address] [place], [place] [address] Troponin T High Sensitivity May 17, 2022 [...] the JESUS score for the inpatient setting). [facility] [id number] [address] [place] [address] 73440 Total Protein May 17, 2022 5:51am 7.8 g/dL 6.4-8.3 [facility] [id number] [address] [place] [address] 43307 Albumin May 17, 2022 5:51am 3.6 g/dl 4.0-5.0 [facility] [id number] [address] [place] [address] 70234 Albumin/Globulin Ratio May 17, 2022 5:51am 0.9 1.0-2.6 [facility] [id number] [address] [place] [address] 77324 Triglycerides Level May 17, 2022 5:51am 102 mg/dL <150 <=150 mg/dL = Desirable [facility] [id number] [address] [place], [place] [address] Cholesterol Level May 17, 2022 5:51am 144 mg/dl <199 <200 mg/dL = Desirable [facility] [id number] [address] [place], [place] [address] LDL Cholesterol, Calculated May 17, 2022 5:51am 87 mg/dl <129 [facility] [id number] [address] [place] [address] 34333 HDL Cholesterol May 17, 2022 5:51am 37 mg/dL >40 < 40 mg/dl: Low HDL-cholestero l(major risk factor for CHD)>/= 60 mg/dl: High HDL-cholestero l(negative risk factor for CHD)HDL-choles terol is affected by a number of factors, e.g., smoking, excercise, hormones, sex and age. [facility] [id number] [address] [place] [address] 45691 Cholesterol Ratio (LDL/HDL) May 17, 2022 5:51am 2.4 LDL/HDL Interpretation :Ratio Men Women1/2 Average 1.00 1.47Average 3.55 3.222X Average 6.25 5.033X Average 7.99 6.14 [facility] [id number] [address] [place] [address] 24310 Cholesterol/HDL Ratio May 17, 2022 5:51am 3.9 Cholesterol/HD L Interpretation : Ratio Men Women 1/2 Average 3.43 3.27 Average 4.97 4.44 2X Average 9.55 7.05 3X Average 23.39 11.04 [facility] [id number] [address] [place] [address] 31399 Alkaline Phosphatase May 17, 2022 5:51am 60 U/L 35-104 [facility] [id number] [address] [place] [address] 94083 Bedside Glucose May 16, 2022 10:39pm 118 mg/dl 70-100 NOTE: Any discrepancy between finger stick glucose result and patient's clinical presentation should be confirmed by the laboratory. [facility] [id number] [address] [place] [address] 94396 Diagnostic Imaging Reports Report Dictated Date/Time Dictated By Status Radiology Report May 16, 2022 6:52pm Kade Guajardo MD completed [address] [address] Patient Name: Alysa Luevano Medical Record#: [id number] 1 Address: [address] [place] [address] City/State/Zip: [place] [address]: Martin Murry MD Insurance: [facility] (Medicaid) /Age/Sex: 1960/61/F Self Pay Admit/Reg Date: 05/16/[address]: Juvenal Tyler Location: ED.AH/ PCP: Agata Reza MD Date of Service: 05/16/22 Order (s): CT head stroke wo contrast CPT Code: 59523 Report Number: [id number] Reason for Exam: right sided numbness/weakness ADDENDUM [...] IMPRESSION: No acute intracranial findings. ASSESSMENT: ASPECTS ([place] Stroke Program Early CT Score) is 10. This document has been electronically signed by ad Radiologist KADE Bradley Dictated By: Kade Guajardo MD 05/16/221851 Signed By: Kade Guajardo MD 05/16/221851 TD/TT: 05/16/221851Tech: [email or web address] cc: GEORGINA RAMIREZ* Srinivas Murry MD; Agata Reza MD Report Dictated Date/Time Dictated By Status Radiology Report May 16, 2022 7:04pm Kade Guajardo MD completed [address] [address] Patient Name: Alysa Luevano Medical Record#: [id number] 1 Address: [address] [place] [address] City/State/Zip: [place] [address]: Martin Murry MD Insurance: [facility] (Medicaid) /Age/Sex: 1960/61/F Self Pay Admit/Reg Date: 05/16/[address]: Juvenal Tyler Location: ED.AH/ PCP: Agata Reza MD Date of Service: 05/16/22 Order (s): CT angio neck stroke CPT Code: 03305 Report Number: [id number] Reason for Exam: right sided numbness/weakness PROCEDURE [...] This document has been electronically signed by [facility] Radiologist KADE GUAJARDO MD Dictated By: Kade Guajardo MD 05/16/221903 Signed By: Kade Guajardo MD 05/16/221903 TD/TT: 05/16/221903Tech: [email or web address] cc: GEORGINA RAMIREZ* Srinivas Murry MD; Agata Reza MD Report Dictated Date/Time Dictated By Status Radiology Report May 16, 2022 7:10pm Kade Guajardo MD completed [address] [address] Patient Name: Alysa Luevano Medical Record#: [id number] 1 Address: [address] [place] [address] City/State/Zip: [place] [address]: Martin Murry MD Insurance: [facility] (Medicaid) /Age/Sex: 1960/61/F Self Pay Admit/Reg Date: 05/16/[address]: Juvenal Tyler Location: ED.AH/ PCP: Agata Reza MD Date of Service: 05/16/22 Order (s): CT angio head stroke CPT Code: 74146 Report Number: [id number] Reason for Exam: right sided numbness/weakness ADDENDUM [...] Soft tissues: Unremarkable. IMPRESSION: 1. No acute ejgltn-wj-Bksbxo occlusion. 2. Bilateral internal carotid artery intracranial calcified stenoses severe on the right. 3. 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 This document has been electronically signed by [facility] Radiologist KADE GUAJARDO MD Dictated By: Kade Guajardo MD 05/16/221909 Signed By: Kade Guajardo MD 05/16/221910 TD/TT: 05/16/221909Tech: [email or web address] cc: GEORGINA RAMIREZ* Srinivas Murry MD; Agata Reza MD Report Dictated Date/Time Dictated By Status Radiology Report May 16, 2022 8:06pm Bella George MD completed [address] [address] Patient Name: Alysa Luevano Medical Record#: [id number] 1 Address: [address] [place] [address] City/State/Zip: [place] [address]: Martin Murry MD Insurance: [facility] (Medicaid) /Age/Sex: 1960/61/F Self Pay Admit/Reg Date: 05/16/[address]: Juvenal Tyler Location: ED./ PCP: Agata Reza MD Date of Service: 05/16/22 Order (s): XR chest 1V portable CPT Code: 31000 Report Number: [id number] Reason for Exam: stroke CXR SINGLE AP Indication: Stroke Comparison: November 29, 2021. The heart is not enlarged. There is no focal infiltrate. The costophrenic sulci are sharp. The trachea is midline. IMPRESSION: No evidence of acute disease. Dictated By: Bella George MD 05/16/222005 Signed By: Bella George MD 05/16/222009 TD/TT: 05/16/222005Tech: [facility] cc: GEORGINA RAMIREZ* Srinivas Murry MD; Agata Reza MD Report Dictated Date/Time Dictated By Status Radiology Report May 17, 2022 11:52am Kevin Squires MD completed [address] [address] Patient Name: Alysa Luevano Medical Record#: [id number] 1 Address: [address] [place] [address] City/State/Zip: [place] [address]: Pa Cooper MD Insurance: [facility] (Medicaid) /Age/Sex: 1960/61/F Self Pay Admit/Reg Date: 05/16/[address]: Cb castellon MD Location: [address] PCP: Agata Reza MD Date of Service: 05/17/22 Order (s): MR head/brain wo contrast CPT Code: 78780 Report Number: [id number] Reason for Exam: stroke EXAM: MRI HEAD [...] 18, 2022 2:30pm [place] [address] Patient Name: Alysa Luevano Medical Record#: [id number] 1 Address: [address] [place] [address] City/State/Zip: [place] [address]: Pa Cooper MD Insurance: [facility] (Medicaid) /Age/Sex: 1960/61/F Self Pay Admit/Reg Date: 05/16/[address]: Kwame Erickson MD Location: [address] PCP: Agata Reza MD Date of Service: 05/17/22 Order (s): US carotid duplex BI CPT Code: 77517 Report Number: [id number] Reason for Exam: assess degree of stenosis [...] By: Geo Gamble MD 05/18/221438 TD/TT: 05/18/221429Tech: [id number] cc: KOKO RAMIREZ* Pa Cooper MD; Agata [...] 2:18pm Insurance Providers Guarantor Alysa Luevano Address [address] [place] [address] Contact Info. Home Phone: Payer Policy Id Coverage Id Subscriber's Name Subscriber Id Effective Date Expiration Date [facility] (Medicaid) [id number] Alysa Luevano [id number] Encounters Encounter Location(s) Arrival/Admit Date Discharge/Depart Date Provider(s) Discharged Inpatient [facility] May 16, 2022 8:17pm May 18, 2022 [...] 6 months Rachna Norris MD Work Phone: 0 [facility] [address] Agata Reza MD Work Phone: [address] [address] Agata Reza MD Work Phone: [address] [address] Agata Reza MD Work Phone: [address] [address] Agata Reza MD Work Phone: [address] [facility] [address] [address] Case Jameel Mccallwhit will call patient with appointment Agata Reza MD Work Phone: [address] [address] Agata Reza MD Work Phone: [address] [address] Left message at office Agata Reza MD Work Phone: [address] [address] Future Procedures Procedure Name Ordered Date Scheduled [...] Level of Care May 16, 2022 8:17pm [facility] 2022 8:17pm Occupational Therapy Consult May 16, 2022 8:1 7pm May 16, 2022 8:17pm Physical Therapy Consult May 16, 2022 8:17pm May 16, 2022 8:17pm Speech Therapy Consult May 16, 2022 8:17pm 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
--- OUTSIDE RECORDS SUMMARY | 2022-08-06 05:07 | XMS_ITS | Continuity of Care Document ---
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 Cork Name Role Phone MD Agata Reza Primary Care Provider MD Reyna Rodrigues Emergency Provider Garnetter, Twan Other Provider Unavailable MD Taina Naqvi [...] Instructions Cetirizine Active 10 MG PO DAILY [facility] 2021 12:00am Metoprolol Succinate Active 200 MG PO DAILY [facility] 2021 12:00am Chlorthalidon e Discontin ued 25 MG PO DAILY [facility] 2021 12:00am [facility] 12:44a m Chlorthalidon e Active 75 MG PO DAILY [facility] 2021 12:00am Acetaminophen Active 500 MG PO DAILY [facility] er 2021 12:00am Pantoprazole Active 40 MG PO DAILY [facility] 2021 12:00am Omeprazole Active 20 MG PO DAILY [facility] 2021 12:00am Verapamil Active 240 MG PO DAILY [facility] 2021 12:00am Fluticasone Propionate (Flovent Hfa) 220 mcg/actuation HFA aerosol inhaler Active 1 INH INH TWICE A DAY [facility] 2021 12:00am Albuterol Sulfate (Proair Hfa) 90 mcg/actuation HFA aerosol inhaler Active 1 INH INH EVERY 6 HOURS [facility] 2021 12:00am Lisinopril Active 40 MG PO DAILY [facility] 2021 12:00am Topiramate Active 100 MG PO DAILY [facility] 2021 12:00am Rosuvastatin Active 20 MG PO DAILY [facility] 2021 12:00am Bupropion Hcl Active 300 MG PO DAILY [facility] 2021 12:00am Cholecalcifer ol (Vitamin D3) (Vitamin D3) 125 mcg (5,000 unit) tablet Active 125 MCG PO DAILY [facility] 2021 12:00am Acetaminophen Active 650 MG PO THREE TIMES A DAY [facility] 2021 12:00am Clopidogrel Active 75 MG PO DAILY [facility] 2021 12:00am Procedures Procedure Date Performed Status [...] Request November 13, 2021 10:48pm Added test [facility] [address] [place] [address] 75134 White Blood Count November 16, 2021 5:35am 11.5 X10 3/uL 4.5-11.0 [facility] [address] [place] [address] 11569 Red Blood Count November 16, 2021 5:35am 4.28 X10 6/uL 3.70-5.00 [facility] [address] [place] [address] 13514 Hemoglobin November 16, 2021 5:35am 12.4 g/dl 11.0-16.0 [facility] [address] [place] [address] 88112 Hematocrit November 16, 2021 5:35am 39.7 % 33.5-45.0 [facility] [address] [place] [address] 90427 Mean Corpuscular Volume November 16, 2021 5:35am 92.8 fl 80.0-100.0 [facility] [address] [place] [address] 59997 Mean Corpuscular Hemoglobin November 16, 2021 5:35am 29.0 pg 27.0-34.0 [facility] [address] [place] [address] 21949 Mean Corpuscular Hemoglobin Concent November 16, 2021 5:35am 31.2 g/dl 31.0-36.0 [facility] [address] [place] [address] 51321 Red Cell Distribution Width November 16, 2021 5:35am 13.7 % 11.5-15.0 [facility] [address] [place] [address] 37654 Platelet Count November 16, 2021 5:35am 347 X10 3/uL 150-400 [facility] [address] [place] [address] 25245 Immature Granulocyte % (Auto) November 16, 2021 5:35am 1.5 % [facility] [address] [place] [address] 57728 Neutrophils (%) (Auto) November 16, 2021 5:35am 65.6 % [facility] [address] [place] [address] 99763 Lymphocytes (%) (Auto) November 16, 2021 5:35am 26.4 % [facility] [address] [place] [address] 10787 Monocytes (%) (Auto) November 16, 2021 5:35am 5.8 % [facility] [address] [place] [address] 64916 Eosinophils (%) (Auto) November 16, 2021 5:35am 0.3 % [facility] [address] [place] [address] 72960 Basophils (%) (Auto) November 16, 2021 5:35am 0.4 % [facility] [address] [place] [address] 72716 Immature Granulocyte # (Auto) November 16, 2021 5:35am 0.17 X10 3/uL 0.00-0.09 [facility] [address] [place] [address] 27190 Neutrophils # (Auto) November 16, 2021 5:35am 7.5 X10 3/uL 1.5-7.8 [facility] [address] [place] [address] 52920 Lymphocytes # (Auto) November 16, 2021 5:35am 3.0 X10 3/uL 1.0-4.8 [facility] [address] [place] [address] 26248 Monocytes # (Auto) November 16, 2021 5:35am 0.7 X10 3/uL 0.0-0.8 [facility] [address] [place] [address] 35692 Eosinophils # (Auto) November 16, 2021 5:35am 0.0 X10 3/uL 0.0-0.5 [facility] [address] [place] [address] 72300 Basophils # (Auto) November 16, 2021 5:35am 0.1 X10 3/uL 0.0-0.2 [facility] [address] [place] [address] 29008 Hemoglobin A1c November 14, 2021 3:16pm 5.8 4.3-5.9 [facility] [address] [place] [address] 87020 Estimated Average Glucose (eAG) November 14, 2021 3:16pm 120 mg/dl [facility] [address] [place] [address] 38415 Nucleated Red Blood Cells % November 16, 2021 5:35am 0.0 /100 WBC 0.0-0.0 [facility] [address] [place] [address] 60180 Urine Color November 14, 2021 3:52am Yellow Yellow [facility] [address] [place] [address] 87648 Urine Clarity November 14, 2021 3:52am Clear Clear [facility] [address] [place] [address] 53716 Urine pH November 14, 2021 3:52am 5.0 5.0-8.0 [facility] [address] [place] [address] 47681 Urine Specific [place] November 14, 2021 3:52am >= 1.030 1.005-1.03 0 [facility] [address] [place] [address] 24695 Urine Blood November 14, 2021 3:52am Negative mg/dL Negative [facility] [address] [place] [address] 83627 Urine Protein November 14, 2021 3:52am Negative mg/dL Negative [facility] [address] [place] [address] 68145 Urine Glucose (UA) November 14, 2021 3:52am Negative mg/dl Negative [facility] [address] [place] [address] 83178 Urine Ketones November 14, 2021 3:52am Negative mg/dL Negative [facility] [address] [place] [address] 16986 Urine Nitrate November 14, 2021 3:52am Negative Negative [facility] [address] [place] [address] 32157 Urine Bilirubin November 14, 2021 3:52am Negative mg/dL Negative [facility] [address] [place] [address] 70011 Urine Urobilinogen November 14, 2021 3:52am 0.2 E.U./dL Normal [facility] [address] [place] [address] 64742 Urine Leukocyte Esterase November 14, 2021 3:52am Moderate mg/dL Negative [facility] [address] [place] [address] 56444 Urine RBC (Auto) November 14, 2021 3:52am None seen /HPF 0-2 [facility] [address] [place] [address] 09698 Urine WBC (Auto) November 14, 2021 3:52am 11-25 /HPF 0-5 [facility] [address] [place] [address] 37462 Urine Epithelial Cells (Auto) November 14, 2021 3:52am 6-10 /HPF 0-5 [facility] [address] [place] [address] 74658 Urine Casts (Auto) November 14, 2021 3:52am None seen /LPF None Seen [facility] [address] [place] [address] 23684 Urine Bacteria (Auto) November 14, 2021 3:52am Rare /HPF None Seen [facility] [address] [place] [address] 67994 Sodium Level November 16, 2021 5:35am 137 mmol/L 137-146 [facility] [address] [place], [place] [address] Potassium Level November 16, 2021 5:35am 4.2 mmol/L 3.5-5.3 [facility] [address] [place] [address] 70511 Chloride Level November 16, 2021 5:35am 99 mmol/L 98-107 [facility] [address] [place] [address] 72941 Carbon Dioxide Level November 16, 2021 5:35am 27 mmol/L 23-32 [facility] [address] [place] [address] 38074 Anion Gap November 16, 2021 5:35am 11 mmol/L 5-15 [facility] [address] [place] [address] 65435 Blood Urea Nitrogen November 16, 2021 5:35am 31 mg/dl 5-25 [facility] [address] [place] [address] 73508 Creatinine November 16, 2021 5:35am 1.2 mg/dL 0.5-1.1 [facility] [address] [place] [address] 26023 Estimated Creatinine Clearance November 16, 2021 5:35am 65.4 ml/min This value is calculated by Cockcroft Gault Equation using ideal body weight. This result is dependent on an accurate patient height and weight which is obtained from patients medical record. Federicocroft, DHelenaW. and M.H. Gamauricio. Prediction of creatinine clearance from serum creatinine. Nephron. 1976. 16(1):31-41. [facility] [address] Estimated GFR () November 16, 2021 5:35am 56 >60 [facility] [address] [place] [address] 36691 Estimated GFR (Non- November 16, 2021 5:35am 48 >60 [facility] [address] [place] [address] 91320 BUN/Creatinine Ratio November 16, 2021 5:35am 25.8 10.0-20.0 [facility] [address] [place] [address] 59183 Glucose Level November 16, 2021 5:35am 97 mg/dL 70-100 [facility] [address] [place], [place] [address] Calcium Level November 16, 2021 5:35am 9.6 mg/dl 8.6-10.3 [facility] [address] [place], [place] [address] Magnesium Level November 16, 2021 5:35am 2.5 mg/dL 1.8-2.5 [facility] [address] [place], [place] [address] Total Bilirubin November 14, 2021 3:16pm < 0.2 mg/dl <1.1 [facility] [address] [place], [place] [address] Aspartate Amino Transf (AST/SGOT) November 14, 2021 3:16pm 19 U/L 15-41 [facility] [address] [place], [place] [address] Alanine Aminotransferase (ALT/SGPT) November 14, 2021 3:16pm 12 U/L 14-54 [facility] [address] [place], [place] [address] Troponin T High Sensitivity November 13, 2021 [...] the JESUS score for the inpatient setting). [facility] [address] [place] [address] 22064 OS-Ggt-X-Type Natriuretic Peptide November 13, 2021 9:45pm 153 pg/mL 0-900 The half-life of plasma BNP is significantly increased in patients with compromised renal function. [facility] [address] [place] [address] 53956 Total Protein November 14, 2021 3:16pm 7.6 g/dL 6.4-8.3 [facility] [address] [place] [address] 44719 Albumin November 14, 2021 3:16pm 3.5 g/dl 4.0-5.0 [facility] [address] [place] [address] 23571 Albumin/Globulin Ratio November 14, 2021 3:16pm 0.9 1.0-2.6 [facility] [address] [place] [address] 36076 Triglycerides Level November 14, 2021 3:16pm 179 mg/dL <150 151 - 199 mg/dL = Borderline High [facility] [address] [place] [address] 21028 Cholesterol Level November 14, 2021 3:16pm 189 mg/dl <199 <200 mg/dL = Desirable [facility] [address] [place] [address] 80179 LDL Cholesterol, Calculated November 14, 2021 3:16pm 117 mg/dl <129 [facility] [address] [place] [address] 53395 HDL Cholesterol November 14, 2021 3:16pm 36 mg/dL >40 < 40 mg/dl: Low HDL-cholestero l(major risk factor for CHD) >/= 60 mg/dl: High HDL-cholestero l(negative risk factor for CHD) HDL-cholestero l is affected by a number of factors, e.g., smoking, excercise, hormones, sex and age. [facility] [address] [place] [address] 23462 Cholesterol Ratio (LDL/HDL) November 14, 2021 3:16pm 3.3 LDL/HDL Interpretation : Ratio Men Women 1/2 Average 1.00 1.47 Average 3.55 3.22 2X Average 6.25 5.03 3X Average 7.99 6.14 [facility] [address] [place] [address] 08358 Cholesterol/HDL Ratio November 14, 2021 3:16pm 5.3 Cholesterol/HD L Interpretation : Ratio Men Women 1/2 Average 3.43 3.27 Average 4.97 4.44 2X Average 9.55 7.05 3X Average 23.39 11.04 [facility] [address] [place] [address] 55987 Alkaline Phosphatase November 14, 2021 3:16pm 47 U/L 35-104 [facility] [address] [place] [address] 11646 Thyroid Stimulating Hormone (Reflex November 14, 2021 3:16pm 1.95 uIU/mL 0.34-5.60 [facility] [address] [place] [address] 42852 Bedside Glucose November 15, 2021 8:35pm 133 mg/dl 70-100 NOTE: Any discrepancy between finger stick glucose result and patient's clinical presentation should be confirmed by the laboratory. [facility] [address] [place] [address] 08933 Microbiology Results Procedure Source Result Collection Date/Time Result Date/Time Result Comment Performing Site Urine Culture Urine,Miri n Catch Mixed janis November 16, 2021 9:36am [facility] [address] [place] [address] 19718 Diagnostic Imaging Reports Report Dictated Date/Time Dictated By Status Radiology Report November 13, 2021 10:32pm Italia Bales MD completed [address] [address] Patient Name: Alysa Luevano Medical Record#: [id number] 1 Address: [address] [place] [address] City/State/Zip: [place] [address]: Rhonda Rodrigues MD Insurance: [facility] (Medicaid) /Age/Sex: 1960/61/F Self Pay Admit/Reg Date: 11/13/[address]: Juvenal Fritz Location: ED.AH/ PCP: Agata Reza MD Date of Service: 11/13/21 Order (s): XR chest 1V portable CPT Code: 78050 Report Number: [id number] Reason for Exam: Chest Pain PROCEDURE INFORMATION: [...] By: Italia Bales MD 11/13/212231 TD/TT: 11/13/212231Tech: [id number] cc: ANTHONY RAMIREZ* Agata Reza MD; Reyna Rodrigues MD Report Dictated Date/Time Dictated By Status Radiology Report November 13, 2021 11:42pm Italia Bales MD completed [address] [address] Patient Name: Alysa Luevano Medical Record#: [id number] 1 Address: [address] [place] [address] City/State/Zip: [place] [address]: Rhonda Rodrigues MD Insurance: [facility] (Medicaid) /Age/Sex: 1960/61/F Self Pay Admit/Reg Date: 11/13/[address]: Juvenal Fritz Location: ED.AH/ PCP: Agata Reza MD Date of Service: 11/13/21 Order (s): CT head stroke wo contrast CPT Code: 71798 Report Number: [id number] Reason for Exam: R sided numbness, TIA ADDENDUM The findings were verbally communicated via telephone conference with Reyna Rodrigues at 11:46 PM EDT on 11/13/2021. The findings were acknowledged and understood. This document has been electronically signed by [facility] Radiologist ITALIA BALES MD Addendum Dictated By: Italia Bales MD Addendum Signed By: Italia Baels MD 11/13/212345 DD/ /30/2345 TD/TT: 11/13/2107/30/2345 PROCEDURE [...] IMPRESSION: No acute intracranial abnormalities. ASSESSMENT: ASPECTS ([place] Stroke Program Early CT Score) is 10. This document has been electronically signed by [facility] Radiologist ITALIA BALES MD Dictated By: Italia Bales MD 11/13/212341 Signed By: Italia Bales MD 11/13/21 2343 TD/TT: 11/13/21 234Tech: [id number] cc: CYNTHIA; ASHLEY* Agata Reza MD; Reyna Rodrigues MD Report Dictated Date/Time Dictated By Status Radiology Report November 13, 2021 11:43pm Italia Bales MD completed [facility] [address] [place] [address] Patient Name: Alysa Luevano Medical Record#: [id number] 1 Address: [address] [place] [address] City/State/Zip: [place] [address]: Rhonda Rodrigues MD Insurance: [facility] (Medicaid) /Age/Sex: 1960/61/F Self Pay Admit/Reg Date: 11/13/[address]: Juvenal Fritz Location: ED.AH/ PCP: Agata Reza MD Date of Service: 11/13/21 Order (s): CT angio neck stroke CPT Code: 86119 Report Number: [id number] Reason for Exam: R sided numbness, TIA [...] 14, 2021 12:24am Italia Bales MD completed [address] [address] Patient Name: Alysa Luevano Medical Record#: [id number] 1 Address: [address] [place] [address] City/State/Zip: [place] [address]: Rhonda Rodrigues MD Insurance: [facility] (Medicaid) /Age/Sex: 1960/61/F Self Pay Admit/Reg Date: 11/13/[address]: Juvenal Fritz Location: ED.AH/ PCP: Agata Reza MD Date of Service: 11/13/21 Order (s): CT angio head stroke CPT Code: 59401 Report Number: [id number] Reason for Exam: R sided numbness, TIA [...] 14, 2021 8:01am [place] [address] Patient Name: Alysa Luevano Medical Record#: [id number] 1 Address: [address] [place] [address] City/State/Zip: [place] [address]: Chad Naqvi MD Insurance: [employer] [facility] (Medicaid) /Age/Sex: 1960/61/F Self Pay Admit/Reg Date: 11/14/[address]: Demarcus Grigsby MD Location: [address] PCP: Agata Reza MD Date of Service: 11/14/21 Order (s): Echo TTE comp w/dop w contrast CPT Code: C8929 Report Number: [id number] Reason for Exam: tia Transthoracic Echocardiography Report (TTE) Demographics Patient Name Bassem Watt Gender Female MR Number [id number] Date of 1960 Age 61 year(s) Room Number GC2233 Height 66 inches Date of study 11/14/2021 Weight 280.01 pounds Referring BSA 2.31 m^2 Interpreting MD Jeniffer Guardado MD BMI 45.19 kg/m^2 Fellow Mystery Shopper Dia 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 Mild mitral regurgitation. No aortic stenosis. No aortic regurgitation. The aortic valve is not well visualized. Vina-ld-umdysobo tricuspid regurgitation. Pulmonary artery systolic pressure is [...] valve is not well visualized. TRICUSPID VALVE: Cnoz-by-frhatyfj tricuspid regurgitation. Pulmonary artery systolic pressure is [...] 2021 9:36am Jose Alberto Bangura MD completed [facility] [address] [place] [address] Patient Name: Alysa Luevano Medical Record#: [id number] 1 Address: [address] [place] [address] City/State/Zip: [place] [address]: Chad Naqvi MD Insurance: [employer] [facility] (Medicaid) /Age/Sex: 1960/61/F Self Pay Admit/Reg Date: 11/14/[address]: Demarcus Grigsby [id number] P[facility]: Agata Reza MD Date of Service: 11/15/21 Order (s): MR head/brain wo contrast CPT Code: 40844 Report Number: [id number] Reason for Exam: tia ADDENDUM Impression to [...] Jose Alberto Bangura MD 11/15/2147 TD/TT: 11/15/2136Tech: [id number] cc: GABBY RAMIREZ* Demarcus Grigsby MD; Agata Reza MD; Taina Naqvi MD Report Dictated Date/Time Dictated By Status Electrocardiogram November 15, 2021 7:22pm Jeniffer Guardado MD completed [address] [address] Patient Name: Alysa Luevano Medical Record#: [id number] 1 Address: [address] [place] [address] City/State/Zip: [place] [address]: Chad Naqvi MD Insurance: [facility] (Medicaid) /Age/Sex: 1960/61/F Self Pay Admit/Reg Date: 11/15/[address]: Juvenal Dubon [facility] P[facility]: Agata Reza MD Date of Service: 11/15/21 Order (s): EKG Electrocardiogram CPT Code: 85827 Report Number: [id number] Reason for Exam: PAIN JUNCTIONAL BRADYCARDIA with PACs Comparison Summary: No serial comparison made Summary: Abnormal ECG Dictated By: Jeniffer Guardado MD 11/15/211921 Signed By: Jeniffer Guardado MD 11/16/212047 TD/TT: 11/15/211921Tech: [email or web address] cc: LUIS RAMIREZ* Agata Reza MD; aTina Naqvi MD Vital Signs Vital Reading Result [...] 10:59am Insurance Providers Guarantor Alysa Luevano Address [address] [place] [address] Contact Info. Home Phone: Payer Policy Id Coverage Id Subscriber's Name Subscriber Id Effective Date Expiration Date [facility] (Medicaid) [id number] Alysa Luevano [id number] Encounters Encounter Location(s) Arrival/Admit Date Discharge/Depart Date Provider(s) Discharged Inpatient [facility] November 15, 2021 10:43am November 17, [...] Type [facility] Date of Last Bowel Movement 11/15/21 [facility] 2021 1:20am Oral Care Mouth [...] 6 months Rachna Norris MD Work Phone: [address] [place] [phone] Agata Reza MD Work Phone: [address] [place] [address] Future Procedures Procedure Name Scheduled Date Hospital [...]
[2022-08-06 05:10] LABS: Lactic Acid 1.7 mmol/L (0.5-2.0)
[2022-08-06 06:06] LABS: MANUAL DIFF FLAG NO
[2022-08-06 06:09] LABS: Basophils Absolute Auto 0.1 X10*3/uL (0.0-0.2); Basophils Percent Auto 0.4 % (0-2); Eosinophils Absolute Auto 0.1 X10*3/uL (0.0-0.4); Eosinophils Percent Auto 0.7 % (0-4); Hematocrit 40.2 % (37.0-47.0); Hemoglobin 13.2 g/dl (12.0-16.0); Imm Gran Abs Auto 0.06 X10*3/uL (0.00-0.03); Imm Gran Pct Auto 0.5 % (0.0-0.4); Lymphocytes Absolute Auto 3.2 X10*3/uL (1.2-4.9); Lymphocytes Percent Auto 27.2 % (20-40); Mean Corpuscular HGB Conc 32.8 g/dl (31.0-35.0); Mean Corpuscular Hemoglobin 29.3 pg (27.0-33.0); Mean Corpuscular Volume 89.1 fL (80.0-98.0); Mean Platelet Volume 9.6 fL (9.4-12.3); Monocytes Absolute Auto 0.7 X10*3/uL (0.1-1.2); Monocytes Percent Auto 5.7 % (2-11); Neutrophils Absolute Auto 7.6 x10*3/uL (2.0-8.3); Neutrophils Percent Auto 65.5 % (45-73); Platelet Count 347 X10*3/uL (160-400); Red Blood Count 4.51 X10*6/uL (4.20-5.50); Red Cell Distribution Width 12.8 % (11.0-16.0); White Blood Count 11.6 X10*3/uL (4.8-10.8)
[2022-08-06 06:23] LABS: Anion Gap 16 (12-20); Blood Urea Nitrogen 25 mg/dL (9-16); Calcium 9.8 mg/dL (8.4-10.2); Carbon Dioxide 24 mmol/L (22-29); Chloride 104 mmol/L (96-108); Creatinine Clr Calc Pharmacy 82.8; Estimated Glomerular Filt Rate > 60; Glucose Random 94 mg/dL (60-115); Potassium 3.9 mmol/L (3.3-5.1); Sodium 140 mmol/L (135-145)
[2022-08-06] MEDS: Enoxaparin Sodium 40 MG/0.4 ML SYRINGE SUBCUT (06:48)
--- NOTE | 2022-08-06 07:00 | CA_ITS ---
Transthoracic Echocardiogram Patient (Last, First, Middle): Alysa Luevano, Gender: Female Date of : 1960 Age: 61 Procedure Date: 08/06/2022 Procedure Type: Transthoracic Echocardiogram Location[place] [facility] [place] Height: 152.4 cm Weight: 118.39 kg BSA: 2.09 m2 Heart Rate: bpm BP: 147 / 70 mmHg Candle Molder Hand: TO Referring MD: Puneet Jordan MD Finishing Lab Technician: Les Barker MD Symptoms: CVA Study Quality: Technically Difficult/Contrast ECG Rhythm: Sinus Conclusions: - 1. Technically difficult study despite use of contrast agent 2. Normal LV systolic function with impaired relaxation filling pattern 3. Normal cardiac valvular Dopplers next 4. Normal RV systolic pressure 5. No gross pericardial effusion Findings Procedure Information Contrast agent, definity, is being given per protocol without apparent complications. Left Ventricle Normal left ventricular size, thickness, and systolic function. The visually estimated ejection fraction is between 60-65%. Spectral Doppler is indicative of an impaired relaxation filling pattern. E/E prime ratio is between 8 and 15 consistent with indeterminate filling pressures. Right Ventricle The right ventricle was not well visualized. Atria The left atrium is normal in size. There is no evidence of interatrial shunt by agitated saline. The right atrium was not well visualized. Aortic Valve The aortic valve was not well visualized. There is no aortic valve stenosis. There is no aortic valve regurgitation. Mitral Valve The mitral valve was not well visualized. There is trace mitral valve regurgitation. There is no mitral valve stenosis. Pulmonic Valve The pulmonic valve was not well visualized. Tricuspid Valve Likely normal tricuspid valve structure and function. Normal right atrial pressure. There is no evidence of pulmonary hypertension. Great Vessels All visible segments of the aorta are normal in size. The pulmonary artery was not well visualized. Venous The inferior vena cava is normal in size and collapses greater than 50% with inspiration. Pericardium/Pleural There is no evidence of pericardial effusion. Prior Study Comparison No previous study in the last 5 years for comparison Measurements 2D Linear Measurements IVSd: 0.93 0.6-0.9/0.6-1.0 cm LVIDd: 4.68 3.9-5.3/4.2-5.9 cm LVIDd Index: 2.24 2.4-3.2/2.2-3.1 cm/m2 LVIDs: 3.41 2.0-3.6 cm LVPWd: 0.88 0.7-1.1 cm LV Mass: 177.56 67-162/88-224 g LV Mass Index: 84.96 43-95/49-115 g/m2 LVOT Diam: 1.80 3.0+(-)1.3 cm 2D Systolic Function EF 4C: 61.60 >55% EF 2C: 67.40 >55% EF BiP: 64.70 >55% Mitral Valve MV VTI: 0.32 MV Pk James: 1.21 MV Mn James: 0.76 MV Pk Grad: 6.00 MV Mn Grad: 3.00 MV Pk E: 0.81 MV PK A: 0.97 MV Decel Time: 186.00 E/A: 0.80 E'Lateral: 9.46 E'Medial: 7.51 E/E' Med: 10.70 E/E' Lat: 8.50 PHT: 55.00 MVA PHT: 4.00 MVA Continuity: 1.78 Decel [place]: 4.33 Aortic Valve AoV Pk James: 1.75 AoV Mn James: 1.21 AoV VTI: 0.37 AoV Pk Grad: 12.00 Aov Mn Grad: 7.00 REJI Cont.VTI: 1.54 LVOT LVOT Pk James: 1.23 LVOT Mn James: 0.71 LVOT VTI: 0.23 LVOT Pk Grad: 6.00 LVOT Mn Grad: 3.00 LVOT Diam: 1.80 LVOT Area: 2.54 Diastolic Function MV Pk E: 0.81 MV Pk A: 0.97 E/A: 0.80 E'Medial: 7.51 E/E' Med: 10.70 E' Laterial: 9.46 E/E' Lat: 8.50 Right Ventricle TAPSE (mm): 22.20 TVS' James: 10.20 Tricuspid Valve TR Pk James: 2.59 TR Pk Grad: 27.00 RA Press: 3.00 RVSP: 30.00 Great Vessels Aorta Sinus of Valsalva: 2.57 2.0-3.5 cm Ao Asc: 2.60 2.1-3.4 cm Updated in Other Vendor System with Status of Final Les Barker MD electronically signed on 08/07/2022 9:05:38 AM with status of Final
[2022-08-06 07:11] LABS: Estimated Average Glucose 103 mg/dL; Hemoglobin A1c % 5.2 %
--- NOTE | 2022-08-06 07:23 | PC.NURSE ---
Alert and oriented. States still has a little headache and some dizziness. NSR on monitor. Denies chest pain or SOB. VSS
--- NOTE | 2022-08-06 07:49 | PHA.MEDREC ---
med rec comleted overnight by nursing, looks complete, when compared to pharmacy claim history Pharmacy Consult ? Medication Reconciliation Pharmacy has completed the medication reconciliation.
--- NOTE | 2022-08-06 08:20 | PC.NURSE ---
PERUDAY, right sided hand grasp weaker than left however patient states this is normal prior to this admission. Able to raise both legs but raises left leg higher. Alert and oriented x 4.
--- NOTE | 2022-08-06 08:31 | PC.NURSE ---
Reported called to accepting floor
[2022-08-06] MEDS: Clopidogrel Bisulfate 75 MG TABLET PO (09:36)
[2022-08-06] MEDS: Cholecalciferol (Vitamin D3) 25 MCG TABLET 125 MCG PO (09:36)
[2022-08-06] MEDS: Loratadine 10 MG TABLET PO (09:36)
[2022-08-06] MEDS: Atorvastatin Calcium 40 MG TABLET PO (09:36)
--- NOTE | 2022-08-06 12:13 | MHC.SLORD ---
Speech Language Pathology Order Status: Pt passed RN swallow screen this morning in ED. Per [facility] RN, pt tolerated pills whole w/ water this morning. MD to cancel [employer] consult order.
--- NOTE | 2022-08-06 12:32 | PM.EVENT ---
Event Note Date of Service: 08/06/22 Event Note: Admitted this morning for right-sided heaviness and weakness, patient awake alert continue to complain of right-sided heaviness more than her baseline weakness from prior acute CVA with from last fall denies speech impairment no visual symptoms On examination talking in full sentence Face symmetrical Right Lower extremities strength 4/5 61-year-old female with pertinent history of essential hypertension, gastroesophageal reflux disease, mixed hyperlipidemia, history of CVA who presents to the emergency department for evaluation of dizziness and right-sided weakness. #.? Right-sided weakness concerning for acute CVA.? Multiple risk factors for stroke including hypertension, hyperlipidemia prior history of CVA, morbid obesity Has chronic right lower extremity weakness from prior CVA Follow echo/MRI, Neuro consult, patient passed bedside swallow eval therefore will DC speech therapy consult Place patient on cardiac diet, continue Plavix and statins , has allergy to aspirin that causes facial swelling and redness, PT/OT eval #.? Essential hypertension.? Hold chlorthalidone and lisinopril to allow for permissive hypertension #.? Mood disorder.? Continue home mood stabilizers #.? Mixed hyperlipidemia: Resume statins #.? Asymptomatic bacteriuria.? Defer treatment #.? Gastroesophageal reflux disease: On PPI DVT prophylaxis:? Lovenox Full code Will require continued inpatient hospitalization for evaluation of possible CVA.? Specialist consult pending Time Spent With Patient Time: Total time managing care of this patient today ____ minutes.
--- NOTE | 2022-08-06 15:03 | MHC.CM.PN ---
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 PT REPORTS SHE USES A WALKER AND WC AT [facility] AND HER ASSISTED HER WITH NEEDS, PT REPORTS HER SISTERS ARE NOW ASSISTING PT W/NEEDS. PT DOES NOT KNOW NAME/CLINIC OF PCP HOWEVER SISTER TO BRING PT'S PHONE WHICH HAS INFO, PT DECIDING ON WHO SHOULD BE HER HCP SINCE HER RETURNED TO AND WILL LET CM KNOW IF SHE WANTS TO COMPLETE A NEW HCP. DCP: RETURN TO SISTERS HOME W/NO NEW SERVICES AND FAMILY FOR TRANSPORT
[2022-08-07] VITALS (7 sets, daily range): BP systolic 116–136; BP diastolic 58–72; PULSE 82–116; RESP 16–20; TEMP 36.5–37; O2SAT 95–98
[2022-08-07] MEDS: Omeprazole 20 MG CAPSULE.DR PO (05:33)
[2022-08-07] MEDS: Enoxaparin Sodium 40 MG/0.4 ML SYRINGE SUBCUT (05:34)
[2022-08-07 07:15] LABS: Cholesterol 148 mg/dL; HDL Cholesterol 36 mg/dL; LDL Cholesterol Calculated 91 mg/dl; Triglycerides 105 mg/dL
[2022-08-07] MEDS: Atorvastatin Calcium 40 MG TABLET PO (08:04)
[2022-08-07] MEDS: Loratadine 10 MG TABLET PO (08:04)
[2022-08-07] MEDS: Clopidogrel Bisulfate 75 MG TABLET PO (08:04)
[2022-08-07] MEDS: Cholecalciferol (Vitamin D3) 25 MCG TABLET 125 MCG PO (08:04)
--- NOTE | 2022-08-07 12:39 | P.CNNE_ITS ---
History of Present Illness Data of Consult Service Date: 08/07/22 Primary Care Provider: Unknown Physician HPI Reason for consult: ? Stroke This is a 61-year-old female with history of essential hypertension, gastro esophageal reflux disease, mixed hyperlipidemia, CVA who presented to the emergency department for evaluation of dizziness and right-sided weakness.? Patient states her symptoms started at 18:00.? Patient states her right upper and lower extremity became heavy and she had difficulty moving them.? Also noted that she was having headache, dizziness which has been constant.? Patient had a previous CVA in November 2021 and was using a walker to ambulate.? She denies jerking movement of extremities, facial droop, urinary or bowel incontinence.? Review of Systems Review of Systems: Pertinent positives and negatives as stated in HPI Constitutional: Constitutional: Reports no additional constitutional complaints and Reports weakness ENT: Reports dizziness Cardiovascular: Cardiovascular: Reports no additional cardiovascular complaints Respiratory: Respiratory: Reports no additional respiratory complaints Gastrointestinal: Gastrointestinal: Reports no additional gastrointestinal complaints Neurologic: Reports dizziness and Reports weakness [facility] Past Medical History Medical History Essential hypertension Mixed hyperlipidemia Mood disorder Family History Pertinent family history: No family history of early CAD Social History Social History Household Members: None Housing: House Patient Tobacco Use Status: Never used Tobacco service: No Current occupational status: disabled Meds Allergies Allergy/AdvReac Type Severity Reaction Status Date / Time aspirin [Aspirin] Allergy Mild SWELLING, Unverified 01/11/21 14:25 facial swelling, redness Sulfa (Sulfonamide Allergy Mild SWELLING, Unverified 01/11/21 14:25 Antibiotics) facial [Sulfa (Sulfonamides)] swelling, redness Aspirin Allergy Unknown facial Uncoded 01/11/21 14:25 swolling sulfa Allergy Unknown facial Uncoded 01/11/21 14:25 swolling Active Medications: Current Medications Acetaminophen (Acetaminophen 325 Mg Tablet) 650 mg PO Q6H PRN PRN Reason: Pain, Mild (Pain Scale 1-3) Acetaminophen (Acetaminophen Supp 650 Mg Supp.Rect) 650 mg UT Q6H PRN PRN Reason: Pain, Mild (Pain Scale 1-3) Atorvastatin Calcium (Atorvastatin Calcium 40 Mg Tablet) 40 mg PO DAILY LONG Last Admin: 08/07/22 08:04 Dose: 40 mg Clopidogrel Bisulfate (Clopidogrel Bisulfate 75 Mg Tablet) 75 mg PO DAILY [facility] Last Admin: 08/07/22 08:04 Dose: 75 mg Enoxaparin Sodium (Enoxaparin Sodium 40 Mg/0.4 Ml Syringe) 40 mg SUBCUT Q24H [facility] Last Admin: 08/07/22 05:34 Dose: 40 mg Loratadine (Loratadine 10 Mg Tablet) 10 mg PO DAILY [facility] Last Admin: 08/07/22 08:04 Dose: 10 mg Melatonin (Melatonin 3 Mg Tablet) 6 mg PO BEDTIME PRN PRN Reason: Insomnia Omeprazole (Omeprazole 20 Mg Capsule.Dr) 20 mg PO DAILY@0630 [facility] Last Admin: 08/07/22 05:33 Dose: 20 mg Ondansetron HCl (Ondansetron Hcl 4 Mg/2 Ml Vial) 4 mg IVPUSH Q8H PRN PRN Reason: Nausea and Vomiting Pharmacy Consult (Consult Rx Perform Med Rec) 1 each MISCELLANE ONCE PRN PRN Reason: Consult order Vitamin D (Cholecalciferol (Vitamin D3) 25 Mcg Tablet) 125 mcg PO DAILY [facility] Last Admin: 08/07/22 08:04 Dose: 125 mcg Home Medications Medication Instructions Recorded Confirmed Last Taken Type atorvastatin 40 mg tablet 40 mg PO DAILY 08/06/22 08/06/22 Unknown History chlorthalidone 25 mg tablet 25 mg PO DAILY 08/06/22 08/06/22 Unknown History cholecalciferol (vitamin D3) 125 125 mcg PO DAILY 08/06/22 08/06/22 Unknown History mcg (5,000 unit) tablet (Vitamin D3) clopidogrel 75 mg tablet 75 mg PO DAILY 08/06/22 08/06/22 Unknown History lisinopril 40 mg tablet 40 mg PO DAILY 08/06/22 08/06/22 Unknown History loratadine 10 mg tablet 10 mg PO DAILY 08/06/22 08/06/22 Unknown History meclizine 12.5 mg tablet 12.5 mg PO TID 08/06/22 08/06/22 Unknown History omeprazole 20 mg capsule,delayed 20 mg PO DAILY 08/06/22 08/06/22 Unknown History release Physical Exam Vital Signs: Vital Signs: Last Vital Signs Temp 98.3 F 08/07/22 11:24 Pulse 82 08/07/22 11:24 Resp 16 08/07/22 11:24 BP 136/63 08/07/22 11:24 Pulse Ox 96 08/07/22 11:24 O2 Del Method Room Air 08/07/22 11:24 BMI result Body Mass Index 51.1 Neuro: Other: speech clear . No facial droop. Subtle RUE weakness. Plantars plexor. RLE 4/5 Results Labs 08/06/22 05:59 08/06/22 05:59 Microbiology Microbiology Results: Microbiology 08/06/22 Unknown Urine clean catch - Urine robin top Urine Culture - Final 08/06/22 05:59 Blood - Venous Blood Culture - Preliminary No growth after 24 hours. 08/06/22 04:48 Blood - Venous Blood Culture - Preliminary No growth after 24 hours. Assessment and Plan (1) CVA (cerebral vascular accident): Status: Acute r/o new left hemisphere stroke. H/O previou sstroke with no details available. Recom. MRI brain, ASA 81mg Plan This is a 61-year-old female with pertinent history of essential hypertension, gastroesophageal reflux disease, mixed hyperlipidemia, history of CVA who presents to the emergency department for evaluation of dizziness and right-sided weakness. #. Right-sided weakness concerning for acute CVA. Will admit patient with personnel monitor. Consulted Neurology, appreciate assistance. Obtaining MRI of the brain. Echo, A1c and lipid panel pending to complete workup. Consulted PT/OT to evaluate and treat. NPO until patient passes swallow study. Patient is on Plavix and high-intensity statin #. Essential hypertension. Hold antihypertensives to allow for permissive hypertension #. Mood disorder. Continue home mood stabilizers #. Mixed hyperlipidemia: On statin #. Asymptomatic bacteriuria. Defer treatment #. Gastroesophageal reflux disease: On PPI Med rec pending DVT prophylaxis: Lovenox Full code NPO Admit as inpatient and will require two night minimum hospital stay for evaluation of possible CVA. Specialist consult pending Time Spent With Patient Time: Total time managing care of this patient today ____ minutes. Procedures Date of Service Date of Service: 08/07/22
--- NOTE | 2022-08-07 16:19 | HO.PM.IMPN ---
Subjective Subjective Date of Service: 08/07/22 Interval History: History obtained via portable canteen operator. Complaining of right anterior chest wall pain when lifting right shoulder, also complaining of persistent right-sided heaviness and weakness worsened her baseline weakness from prior stroke denies speech impairment, no visual symptoms, no new neuro deficits since admission, was unable to tolerate MRI this morning due to claustrophobia and was unable to 5th due to weight, denies shortness of breath, no lightheadedness, no dizziness, no headache, no nausea, vomiting, tolerating diet no other acute issues since admission. Review of Systems All other system are reviewed and negative. Physical Exam Vital Signs: Vital Signs: Last Vital Signs Temp 97.7 F 08/07/22 15:11 Pulse 86 08/07/22 15:11 Resp 17 08/07/22 15:11 BP 127/60 08/07/22 15:11 Pulse Ox 97 08/07/22 15:11 O2 Del Method Room Air 08/07/22 15:11 BMI result Body Mass Index 51.1 Const: Other: General awake alert x3, resting comfortably in no acute distress. Neck supple no JVD. CVS regular rate rhythm, Respiratory lungs clear to auscultation, no respiratory distress, no wheeze, no rhonchi. Gastrointestinal abdomen soft, nontender, bowel sounds audible, no guarding , no rigidity. Extremities no edema. Neuro awake alert x3, speech clear, no pronator drift, symmetrical face, mild 4/5 right upper and lower extremity weakness Skin no rash Psych appropriate affect Objective Data Active Medications Acetaminophen (Acetaminophen 325 Mg Tablet) 650 mg PO Q6H PRN PRN Reason: Pain, Mild (Pain Scale 1-3) Acetaminophen (Acetaminophen Supp 650 Mg Supp.Rect) 650 mg NE Q6H PRN PRN Reason: Pain, Mild (Pain Scale 1-3) Atorvastatin Calcium (Atorvastatin Calcium 40 Mg Tablet) 40 mg PO DAILY ON LICENSE OF [facility] Last Admin: 08/07/22 08:04 Dose: 40 mg Documented By: SAVI Clopidogrel Bisulfate (Clopidogrel Bisulfate 75 Mg Tablet) 75 mg PO DAILY ON LICENSE OF [facility] Last Admin: 08/07/22 08:04 Dose: 75 mg Documented By: SAVI Enoxaparin Sodium (Enoxaparin Sodium 40 Mg/0.4 Ml Syringe) 40 mg SUBCUT Q24H ON LICENSE OF [facility] Last Admin: 08/07/22 05:34 Dose: 40 mg Documented By: BOSSMAN Loratadine (Loratadine 10 Mg Tablet) 10 mg PO DAILY ON LICENSE OF [facility] Last Admin: 08/07/22 08:04 Dose: 10 mg Documented By: SAVI Melatonin (Melatonin 3 Mg Tablet) 6 mg PO BEDTIME PRN PRN Reason: Insomnia Omeprazole (Omeprazole 20 Mg Capsule.Dr) 20 mg PO DAILY@0630 ON LICENSE OF [facility] Last Admin: 08/07/22 05:33 Dose: 20 mg Documented By: BOSSMAN Ondansetron HCl (Ondansetron Hcl 4 Mg/2 Ml Vial) 4 mg IVPUSH Q8H PRN PRN Reason: Nausea and Vomiting Pharmacy Consult (Consult Rx Perform Med Rec) 1 each MISCELLANE ONCE PRN PRN Reason: Consult order Vitamin D (Cholecalciferol (Vitamin D3) 25 Mcg Tablet) 125 mcg PO DAILY ON LICENSE OF [facility] Last Admin: 08/07/22 08:04 Dose: 125 mcg Documented By: SAVI Labs 08/06/22 05:59 08/06/22 05:59 Labs: Laboratory Results - last 24 hr 08/07/22 06:24 Triglycerides 105 Cholesterol 148 LDL Cholesterol, Calc 91 HDL Cholesterol 36 Microbiology Microbiology Results: Microbiology 08/06/22 Unknown Urine Culture - Final Urine clean catch - Urine robin top 08/06/22 05:59 Blood Culture - Preliminary Blood - Venous No growth after 24 hours. 08/06/22 04:48 Blood Culture - Preliminary Blood - Venous No growth after 24 hours. Assessment and Plan (1) Mood disorder: Status: Acute (2) Mixed hyperlipidemia: Status: Acute (3) Essential hypertension: Status: Acute (4) Right sided weakness: Status: Acute Plan 61-year-old female with pertinent history of essential hypertension, gastroesophageal reflux disease, mixed hyperlipidemia, history of CVA who presents to the emergency department for evaluation of dizziness and right-sided weakness. #.? Right-sided weakness concerning for acute CVA.? Multiple risk factors for stroke including hypertension, hyperlipidemia prior history of CVA, morbid obesity ?? ? Has chronic right lower extremity weakness from prior CVA ?? ? Patient unable to tolerate MRI due to claustrophobia and her size, CT head obtained that showed no acute stroke , CT angio head and neck showed no acute intracranial pathology, no large vessel occlusion or hemodynamically significant stenosis noted Echo showed normal EF 60-65% and impaired relaxation, no evidence of interatrial shunt. ?? ? Continue cardiac diet, continue Plavix and statins , has allergy to aspirin that causes facial swelling and redness Will request PT/OT eval #.? Essential hypertension.? Blood pressure is stable, chlorthalidone and lisinopril on hold, will follow blood pressure and resume low-dose of lisinopril #.? Mood disorder.? Continue home mood stabilizers #.? Mixed hyperlipidemia:? on statins #.? Asymptomatic bacteriuria.? Defer treatment #.? Gastroesophageal reflux disease: On PPI morbid # morbid obesity recommended weight reduction, with low-calorie diet and gradual exercise. DVT prophylaxis:? Kingx Full code Will require continued inpatient hospitalization for evaluation of right-sided weakness awaiting PT OT eval and treatment . Time Spent With Patient Time: Total time managing care of this patient today ____ minutes. Quality Stroke Does the patient have a stroke diagnosis?: Yes Reason for No Anti-thrombotic by Day Two: N/A - Med Ordered VTE Prior VTE?: No VTE Risk Level:: Medical - moderate - high VTE Device Contraindication: Treatment Not Indicated VTE Drug Contraindication: N/A - Med Ordered
[2022-08-08 03:23] VITALS: BP 142/68; PULSE 88; RESP 18; TEMP 36.6; O2SAT 95
[2022-08-08] MEDS: Omeprazole 20 MG CAPSULE.DR PO (05:42)
[2022-08-08] MEDS: Enoxaparin Sodium 40 MG/0.4 ML SYRINGE SUBCUT (05:42)
--- NOTE | 2022-08-08 07:31 | P.CDIM_ITS ---
PROVIDER RESPONSE TEXT: To clarify, the appropriate diagnosis supported by the clinical indicators: Obesity Due to excess calories QUERY TEXT: PHYSICIAN'S DOCUMENTATION REQUEST Date of Query: 08/07/2022 11:49 AM EDT Patient Name: Alysa Luevano Admit Date: 08/06/2022 Dear Marie Anne, A review of the medical record indicates additional documentation may be needed. Please review below and update the documentation accordingly. Clinical Indicators: Height: ( ) 5 FT Weight: ( ) 118.6 kg BMI: ( ) 51.1 Other Clinical Notes Supporting Significance of the BMI: If possible, please provide an associated diagnosis related to the abnormal BMI, such as: Overweight Obesity Due to excess calories Obesity Drug induced Obesity Due to other cause Specify the other cause Severe or Morbid Obesity With alveolar hypoventilation Severe or Morbid Obesity Without alveolar hypoventilation BMI is not significant Other (explain)Clinically unable to determine (explain)Thank you, Lashell Clark RN Use of terms such as suspected, likely, concern for, or probable (associated with a specific diagnosi s that is being evaluated, monitored, or treated as if it exists) are acceptable and can be coded in the inpatient se tting, when documented at the time of discharge. Please use your independent medical judgment in providing your response. THIS QUERY IS PART OF THE PERMANENT MEDICAL RECORD
[2022-08-08 08:00] VITALS: BP 149/61; PULSE 88; RESP 20; TEMP 36.7; O2SAT 95
[2022-08-08] MEDS: Loratadine 10 MG TABLET PO (08:03)
[2022-08-08] MEDS: Atorvastatin Calcium 40 MG TABLET PO (08:03)
[2022-08-08] MEDS: Clopidogrel Bisulfate 75 MG TABLET PO (08:03)
[2022-08-08] MEDS: Cholecalciferol (Vitamin D3) 25 MCG TABLET 125 MCG PO (08:03)
--- NOTE | 2022-08-08 11:04 | MHC.CM.PN ---
Patient has been medically cleared for dc to home today, with services. A referral has been made to [facility] and CM awaits confirmation that [facility] can accept Patient. CM met with Patient at bedside; she will dc to her Brother's home at [address] [place] [address] in [place] and Patient's [id number] will provide transportation to home. Patient's PCP is from [facility] @ [phone].
--- NOTE | 2022-08-08 11:42 | MHC.CM.PN ---
Patient has been medically cleared for dc to home today; [facility] has accepted Patient.
--- NOTE | 2022-08-08 12:03 | P.DS_ITS ---
DS: Providers Provider Date of Service: 08/08/22 Date of admission: 08/06/22 04:59 Primary care physician: Unknown Physician Consults: 08/06/22 04:59 Consult to Neurology Routine Consulting Provider: [facility] Reason for consultation: CVA DS: Diagnosis Discharge Diagnosis (1) Mood disorder: Status: Acute (2) Mixed hyperlipidemia: Status: Acute (3) Essential hypertension: Status: Acute (4) Right sided weakness: Status: Acute DS: Summary Hospital Course Hospital Course: Date of Service: 08/06/22 Chief Complaint: Right sided weakness This is a 61-year-old female with pertinent history of essential hypertension, gastroesophageal reflux disease, mixed hyperlipidemia, history of CVA who presents to the emergency department for evaluation of dizziness and right-sided weakness.? Patient states her symptoms started at 18:00.? Patient states her r ight upper and lower extremity became heavy and she had difficulty moving them.? Also noted that she was having headache, dizziness which has been constant.? Patient had a previous CVA in November and was using a walker to ambulate.? She denies jerking movement of extremities, facial droop, urinary or bowel incontinence.? No fever, chills, chest discomfort, palpitations, shortness of breath, abdominal pain, changes in urinary or bowel habits. In the emergency department, CTA without any significant deficits. Hospital course: 61-year-old female with pertinent history of essential hypertension, gastroesophageal reflux disease, mixed hyperlipidemia, history of CVA who presents to the emergency department for evaluation of dizziness and right-sided weakness. #.? Right-sided weakness concerning for acute CVA.? Patient with history of prior CVA and right-sided weakness presented with worsening right-sided weakness/heaviness with no associated speech impairment no visual symptoms, CT angio head and neck showed no acute intracranial pathology, no large vessel occlusion or hemodynamically significant stenosis was noted patient was unable to tolerate MRI due to claustrophobia and her size therefore CT head obtained that showed no acute stroke echo showed normal EF 60-65% and impaired relaxation no evidence of intra-atrial shunt patient was continued on Plavix and statins she has allergy to aspirin that causes facial swelling and redness patient subsequently evaluated by PT and they recommending PT with home services patient remained hemodynamically stable and had no new neuro deficit she is being discharged home with strong recommendation to follow low-calorie diet and to have strict blood pressure and cholesterol control. ?? ? #.? Essential hypertension.? Chlorthalidone and lisinopril was held initially for permissive hypertension however noted to have normal blood pressure without antihypertensive therefore will be discharged home on lisinopril 20 mg daily and chlorthalidone has been discontinued recommend close outpatient blood pressure follow up. #.? Mood disorder.? Continue home mood stabilizers #.? Mixed hyperlipidemia:? on statins #.? Gastroesophageal reflux disease: Continue PPI #? morbid obesity recommended weight reduction, with low-calorie diet and gradual exercise. Time Spent with Patient Time attestation: Total time managing care of this patient today ____ minutes. Discharge coordination time: Greater than 30 minutes Quality: Safe Use of Opioids Does Pt have an Active Cancer Diagnosis on the Problem List?: No Quality: Stroke Does the patient have a stroke diagnosis?: No Physical Exam Vital Signs: Vital Signs: Last Vital Signs Temp 98.1 F 08/08/22 08:00 Pulse 88 08/08/22 08:00 Resp 20 08/08/22 08:00 BP 149/61 H 08/08/22 08:00 Pulse Ox 95 08/08/22 08:00 O2 Del Method Room Air 08/08/22 08:00 BMI result Body Mass Index 51.1 Const: Other: General awake alert x3, resting comfortably in no acute distress.? Neck supple no JVD. CVS? regular rate rhythm, Respiratory lungs clear to auscultation, no respiratory distress, no wheeze, no rhonchi. Gastrointestinal abdomen soft, nontender, bowel sounds audible, no guarding , no rigidity. Extremities no edema. Neuro awake alert x3, speech clear, no pronator drift, symmetrical face, mild 4/5 right upper and lower extremity weakness Skin no rash Psych appropriate affect DS: Data Data Completed and Pending Labs on day of discharge: Preliminary micro results at discharge 08/06/22 05:59 Blood Culture - Preliminary Blood - Venous No growth after 48 hours. 08/06/22 04:48 Blood Culture - Preliminary Blood - Venous No growth after 48 hours. Discharge Plan Discharge Anticipated Discharge Date/Time: 08/08/22 09:57 Patient Disposition: Home Health Service Discharge Diagnosis: Right-sided weakness no acute CVA Referrals: Emily [facility] [Outside] - 1 Week Physician,Susana J [Primary Care Provider] - 1 Week Discharge Medications: Continued atorvastatin 40 mg tablet 40 mg PO DAILY meclizine 12.5 mg tablet 12.5 mg PO TID clopidogrel 75 mg tablet 75 mg PO DAILY omeprazole 20 mg capsule,delayed release(DR/EC) 20 mg PO DAILY loratadine 10 mg tablet 10 mg PO DAILY cholecalciferol (vitamin D3) [Vitamin D3] 125 mcg (5,000 unit) tablet 125 mcg PO DAILY Changed lisinopril 40 mg tablet 20 mg PO DAILY Qty: 30 0RF Discontinued chlorthalidone 25 mg tablet 25 mg PO DAILY Discharge Orders: Discharge Order (Routine); Ordered 08/08/22 Ordered By: Marie Anne Diet: Low fat, low cholesterol Activity on Discharge: As tolerated Stand Alone Forms: Patient Portal Discharge page Care Plan Goals: Acute on chronic right-sided weakness from prior CVA no acute CVA noted For physical therapy as tolerated Noted to have normal blood pressures with few high blood pressure readings without medications recommend to discontinue chlorthalidone and dose of lisinopril reduced to 20 mg ( take 1/2 half tablet of 40 mg lisinopril) Health Concerns: Morbid obesity recommend low-calorie diet and exercise as tolerated Plan of Treatment: Outpatient follow-up with primary care physician Assessment: As above
== END 2022-08-08 14:21 | disposition home health service (06) | DRG 58 ==
LOC: HO.ED 04:49 → HO.EDOVER 05:03 → HO.IMC 07:40
PROVIDERS: Admitting Provider Student in an Organized Health Care Education/Training Program; Emergency Provider Student in an Organized Health Care Education/Training Program; PCP Student in an Organized Health Care Education/Training Program; Visit Provider Hospitalist
DX: G81.91 Hemiplegia, unspecified affecting right dominant side (principal); Z68.43 Body mass index [BMI] 50.0-59.9, adult; E66.01 Morbid (severe) obesity due to excess calories; F39 Unspecified mood [affective] disorder; E78.2 Mixed hyperlipidemia; I10 Essential (primary) hypertension; Z88.2 Allergy status to sulfonamides; Z88.8 Allergy status to other drugs, medicaments and biological substances; Z79.02 Long term (current) use of antithrombotics/antiplatelets; Z79.899 Other long term (current) drug therapy
CPT/HCPCS: 36415; 70450; 70496; 70498; 80048; 80053; 80061; 81001; 82947; 83036; 83605; 84484; 85025; 85610; 87040; 87086; 93005; 93306; 97116; 97162; 97166; 97530; 97535; 99285; J0696; J1650; Q9957; Q9967

== ENCOUNTER 2023-10-29 11:22 | Emergency (ER) | payer MEDICAID, SELFPAY ==
--- NOTE | ~2023-10-29 | XR_ITS ---
EXAMINATION: XR CHEST CLINICAL INFORMATION: Pain COMPARISON: None available. TECHNIQUE: 2 views of the chest were obtained. FINDINGS: Overlying soft tissues accentuate the pulmonary interstitial markings. No focal consolidation. No pleural effusion or pneumothorax. Normal heart size and mediastinal contours. XR/XR chest 2V IMPRESSION: No acute cardiopulmonary abnormality. Electronically signed by: Ten Montoya MD 10/29/2023 01:01 PM EDT RP
--- NOTE | 2023-10-29 11:25 | ECG_ITS ---
Test Reason : cp Blood Pressure : / mmHG Vent. Rate : 094 BPM Atrial Rate : 094 BPM P-R Int : 124 ms QRS Dur : 082 ms QT Int : 366 ms P-R-T Axes : 048 004 048 degrees QTc Int : 457 ms Normal sinus rhythm Normal ECG When compared with ECG of 06-AUG-2022 03:26, No significant change was found Referred By: Generic ED Physician Electronically Signed By:YOSELYN CARDOZA
[2023-10-29 11:34] VITALS: BP 126/57; PULSE 91; RESP 18; TEMP 37; O2SAT 97; BMI 58.5
--- NOTE | 2023-10-29 11:36 | ED_ITS ---
HPI - General Adult General Stated complaint: Chest pain, tingling L arm Related Data Home Medications ?Medication ?Instructions ?Recorded ?Confirmed atorvastatin 40 mg tablet 40 mg PO DAILY 08/06/22 08/06/22 cholecalciferol (vitamin D3) 125 125 mcg PO DAILY 08/06/22 08/06/22 mcg (5,000 unit) tablet (Vitamin D3) clopidogrel 75 mg tablet 75 mg PO DAILY 08/06/22 08/06/22 loratadine 10 mg tablet 10 mg PO DAILY 08/06/22 08/06/22 meclizine 12.5 mg tablet 12.5 mg PO TID 08/06/22 08/06/22 omeprazole 20 mg capsule,delayed 20 mg PO DAILY 08/06/22 08/06/22 release Previous Rx's ?Medication ?Instructions ?Recorded lisinopril 40 mg tablet 20 mg (1/2 x 40 mg) PO DAILY #30 08/08/22 tabs Allergies Allergy/AdvReac Type Severity Reaction Status Date / Time aspirin [Aspirin] Allergy Mild SWELLING, Verified 10/29/23 11:41 facial swelling, redness Sulfa (Sulfonamide Allergy Mild SWELLING, Verified 10/29/23 11:41 Antibiotics) facial [Sulfa (Sulfonamides)] swelling, redness Aspirin Allergy Unknown facial Uncoded 01/11/21 14:25 swolling sulfa Allergy Unknown facial Uncoded 01/11/21 14:25 swolling PMFSH Past Medical History Medical History Essential hypertension Mixed hyperlipidemia Mood disorder Social History Social History Household Members: None Housing: House Patient Tobacco Use Status: Never used Tobacco service: No Current occupational status: disabled Course Course Course Narrative: RME, this is a rapid medical exam performed by Leland Rivera please refer to primary provider for complete H&P- 62-year-old female with past medical history significant for previous CVA, hyperlipidemia, hypertension, GERD presents for evaluation of left-sided chest pain since last night. She describes the pain as stabbing in nature. The pain is constant, radiates the right side of her chest. She denies associated symptoms. She reports that she was lying down when the symptoms started. EKG obtained, plan for labs including troponin. She reports left sided weakness, but on exam, there is no facial asymmetry. 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 She does have residual right-sided weakness from previous CVA. There does not appear to be any acute neurologic changes Discharge Plan Discharge Prescriptions: No Action atorvastatin 40 mg tablet 40 mg PO DAILY meclizine 12.5 mg tablet 12.5 mg PO TID clopidogrel 75 mg tablet 75 mg PO DAILY omeprazole 20 mg capsule,delayed release(DR/EC) 20 mg PO DAILY loratadine 10 mg tablet 10 mg PO DAILY cholecalciferol (vitamin D3) [Vitamin D3] 125 mcg (5,000 unit) tablet 125 mcg PO DAILY lisinopril 40 mg tablet 20 mg PO DAILY Qty: 30 0RF Print Language: Puerto Rican
[2023-10-29 13:42] LABS: Basophils Absolute Auto 0.1 X10*3/uL (0.0-0.2); Basophils Percent Auto 0.7 % (0-2); Eosinophils Absolute Auto 0.1 X10*3/uL (0.0-0.4); Eosinophils Percent Auto 1.3 % (0-4); Hematocrit 36.1 % (37.0-47.0); Imm Gran Abs Auto 0.05 X10*3/uL (0.00-0.03); Imm Gran Pct Auto 0.6 % (0.0-0.4); Lymphocytes Absolute Auto 2.3 X10*3/uL (1.2-4.9); Lymphocytes Percent Auto 26.5 % (20-40); MANUAL DIFF FLAG NO; Mean Corpuscular HGB Conc 33.2 g/dl (31.0-35.0); Mean Corpuscular Hemoglobin 29.9 pg (27.0-33.0); Mean Corpuscular Volume 89.8 fL (80.0-98.0); Mean Platelet Volume 9.6 fL (9.4-12.3); Monocytes Absolute Auto 0.6 X10*3/uL (0.1-1.2); Monocytes Percent Auto 7.1 % (2-11); Neutrophils Absolute Auto 5.4 x10*3/uL (2.0-8.3); Neutrophils Percent Auto 63.8 % (45-73); Platelet Count 361 X10*3/uL (160-400); Red Blood Count 4.02 X10*6/uL (4.20-5.50); Red Cell Distribution Width 13.2 % (11.0-16.0); White Blood Count 8.5 X10*3/uL (4.8-10.8)
[2023-10-29 13:55] LABS: COVID-19 Test Negative (Negative); IDNOW Serial# 58CA691E
[2023-10-29 13:56] LABS: Alanine Aminotransferase 9 U/L (0-31); Albumin Level 3.9 g/dL (3.5-5.0); Alkaline Phosphatase 60 U/L (39-117); Anion Gap 11 (12-20); Aspartate Amino Transferase 14 U/L (5-31); Bilirubin Total 0.4 mg/dL (0.0-1.0); Blood Urea Nitrogen 25 mg/dL (9-16); Calcium 10.1 mg/dL (8.4-10.2); Carbon Dioxide 29 mmol/L (22-29); Chloride 105 mmol/L (96-108); Creatinine Clr Calc Pharmacy 79.5; Estimated Glomerular Filt Rate > 60; Glucose Random 112 mg/dL (60-115); Lipase 19 U/L (8-78); Magnesium 2.1 mg/dL (1.6-2.6); Potassium 4.1 mmol/L (3.3-5.1); Sodium 141 mmol/L (135-145); Total Protein 7.8 g/dL (6.5-8.0)
[2023-10-29 14:05] LABS: Troponin-I High Sensitivity 2.7 ng/L (<3.5-17.0)
[2023-10-29 14:11] VITALS: BP 120/52; PULSE 78; RESP 20; O2SAT 98
[2023-10-29 14:14] VITALS: BP 120/52; PULSE 77; PULSE 79; RESP 14; O2SAT 97
--- NOTE | 2023-10-29 14:24 | PC.NURSE ---
Pt reports 8/10 chest pain that began today with pain radiating to R arm, R back, and R lower extremity--all radiating pain started when chest pain started. Pt also reports constipation x2 days. A&Ox3, VSS, SSO. Awaiting CXR results.
[2023-10-29 16:08] VITALS: BP 116/64; PULSE 75; RESP 18; TEMP 36.4; O2SAT 98
--- NOTE | 2023-10-29 16:40 | ED_ITS ---
HPI - Chest Pain General Chief Complaint: Chest Pain Stated Complaint: Chest pain, tingling L arm Time Seen by Provider: 10/29/23 16:10 Source: patient Limitations: language barrier History of Present Illness ED Provider: Viridiana Joseph PA-C HPI narrative: 62-year-old female with history of mood disorder, hypertension, hyperlipidemia, multiple CVA with residual right-sided deficits, morbid obesity and GERD presents with chest pain x1 day. Patient states she has been having left anterior chest discomfort. She indicates that she often has to ?hoyst herself up into her vehicle using her left upper extremity, due to her deficits on the right side. Denies recent cough cold symptoms or fever. Denies diaphoresis, shortness of breath, nausea, vomiting, abdominal pain. Related Data Home Medications ?Medication ?Instructions ?Recorded ?Confirmed atorvastatin 40 mg tablet 40 mg PO DAILY 08/06/22 08/06/22 cholecalciferol (vitamin D3) 125 125 mcg PO DAILY 08/06/22 08/06/22 mcg (5,000 unit) tablet (Vitamin D3) clopidogrel 75 mg tablet 75 mg PO DAILY 08/06/22 08/06/22 loratadine 10 mg tablet 10 mg PO DAILY 08/06/22 08/06/22 meclizine 12.5 mg tablet 12.5 mg PO TID 08/06/22 08/06/22 omeprazole 20 mg capsule,delayed 20 mg PO DAILY 08/06/22 08/06/22 release Previous Rx's ?Medication ?Instructions ?Recorded lisinopril 40 mg tablet 20 mg (1/2 x 40 mg) PO DAILY #30 08/08/22 tabs methocarbamol 500 mg tablet 500 mg PO TID PRN pain #15 tabs 10/29/23 Allergies Allergy/AdvReac Type Severity Reaction Status Date / Time aspirin [Aspirin] Allergy Mild SWELLING, Verified 10/29/23 11:41 facial swelling, redness Sulfa (Sulfonamide Allergy Mild SWELLING, Verified 10/29/23 11:41 Antibiotics) facial [Sulfa (Sulfonamides)] swelling, redness Aspirin Allergy Unknown facial Uncoded 01/11/21 14:25 swolling sulfa Allergy Unknown facial Uncoded 01/11/21 14:25 swolling Review of Systems 2 Review of Systems: Yes all other systems are reviewed and are negative Constitutional: Constitutional: Denies fever(s) Cardiovascular: Cardiovascular: Reports chest pain, Denies diaphoresis and Denies dyspnea Respiratory: Respiratory: Denies dyspnea Gastrointestinal: Gastrointestinal: Denies abdominal pain, Denies nausea and Denies vomiting Musculoskeletal: Comments: Left chest wall pain PMFSH Past Medical History Attestation statement: The following information was validated with the patient. Medical History Essential hypertension Mixed hyperlipidemia Mood disorder Social History Social History Household Members: None Housing: House Patient Tobacco Use Status: Never used Tobacco Smoked in Last 30 Days: No Use of substances other than those prescribed or required for medical reasons: No Advance Directives: No Advance Directives Information Provided: Yes Patient : No service: No Current occupational status: disabled Physical Exam 2 Vital Signs: Vital Signs: Last Vital Signs Temp 97.6 F 10/29/23 16:08 Pulse 75 10/29/23 16:08 Resp 18 10/29/23 16:08 BP 116/64 10/29/23 16:08 Pulse Ox 98 10/29/23 16:08 O2 Del Method Room Air 10/29/23 16:08 BMI result Body Mass Index 58.5 Const: Other: Alert, appears older than stated age Orientation/consciousness: patient oriented x3 Chest: Other: Palpable tenderness over left chest wall, no deformity no overlying erythema or ecchymosis Resp: Other: Nonlabored respiration Cardio: Other: Normal peripheral perfusion Skin: Other: Warm dry no rash Neuro: Other: Subtle right sided weakness noted in the upper and lower extremity General: patient oriented x3 and CN's II-XI intact bilaterally Psych: Other: Cooperative Medical Decision Making Medical Decision Making MDM Narrative: 62-year-old female with history of mood disorder, hypertension, hyperlipidemia, multiple CVA with residual right-sided deficits, morbid obesity and GERD presents with chest pain x1 day. Patient states she has been having left anterior chest discomfort. She indicates that she often has to ?hoyst herself up into her vehicle using her left upper extremity, due to her deficits on the right side. Denies recent cough cold symptoms or fever. Denies diaphoresis, shortness of breath, nausea, vomiting, abdominal pain. Problem: Vascular disease, psychiatric illness, obesity History: Per patient via spanish medical interpreter services I have considered the following differential diagnoses: ACS, chest wall strain, costochondritis GERD Plan: ACS was considered, however her symptoms are not consistent with ACS despite her risk factors. Screening labs including chest x-ray EKG, screening labs including 2 cardiac enzymes were obtained. Her exam was consistent with chest wall strain and she has a mechanism. We will send with methocarbamol and she can follow up with her primary care provider as needed. Thought about costochondritis, however she has not had preceding viral syndrome. Thought about upper abdominal pathology as well, however she has no abdominal pain and no active GI symptoms. I have independently reviewed the following tests: EKG: Normal sinus rhythm, rate of 94, no ischemic changes no ectopy, QT 457 Labs: No leukocytosis, not anemic, no electrolyte abnormality, troponin is negative Chest x-ray: No pleural effusion, no pulmonary edema, no pneumonia Differential Diagnosis Differential Diagnoses: The differential diagnosis associated with the presentation includes Lab Data 10/29/23 13:34 10/29/23 13:34 Labs: Lab Results 10/29/23 Range/Units 13:34 WBC 8.5 (4.8-10.8) X10*3/uL RBC 4.02 L (4.20-5.50) X10*6/uL Hgb 12.0 (12.0-16.0) g/dl Hct 36.1 L (37.0-47.0) % MCV 89.8 (80.0-98.0) fL MCH 29.9 (27.0-33.0) pg MCHC 33.2 (31.0-35.0) g/dl RDW 13.2 (11.0-16.0) % Plt Count 361 (160-400) X10*3/uL MPV 9.6 (9.4-12.3) fL Immature Gran % (Auto) 0.6 H (0.0-0.4) % Neut % (Auto) 63.8 (45-73) % Lymph % (Auto) 26.5 (20-40) % [place] % (Auto) 7.1 (2-11) % Eos % (Auto) 1.3 (0-4) % Baso % (Auto) 0.7 (0-2) % Lymph # (Auto) 2.3 (1.2-4.9) X10*3/uL [place] # (Auto) 0.6 (0.1-1.2) X10*3/uL Eos # (Auto) 0.1 (0.0-0.4) X10*3/uL Baso # (Auto) 0.1 (0.0-0.2) X10*3/uL Abs Immat Gran (auto) 0.05 H (0.00-0.03) X10*3/uL Absolute Neuts (auto) 5.4 (2.0-8.3) x10*3/uL Absolute Nucleated RBC 0.000 (0.0-0.012) X10*3/uL Nucleated RBC % (auto) 0.0 (0.0-0.2) /100WBC PT 12.0 (11.1-13.3) SEC INR 1.0 (0.9-1.1) Sodium 141 (135-145) mmol/L Potassium 4.1 (3.3-5.1) mmol/L Chloride 105 (96-108) mmol/L Carbon Dioxide 29 (22-29) mmol/L Anion Gap 11 L (12-20) BUN 25 H (9-16) mg/dL Creatinine 0.85 (0.5-1.4) mg/dL Estim Creat Clear Calc 79.5 Estimated GFR > 60 Random Glucose 112 (60-115) mg/dL Calcium 10.1 (8.4-10.2) mg/dL Magnesium 2.1 (1.6-2.6) mg/dL Total Bilirubin 0.4 (0.0-1.0) mg/dL AST 14 (5-31) U/L ALT 9 (0-31) U/L Alkaline Phosphatase 60 (39-117) U/L Troponin I High Sens 2.7 (<3.5-17.0) ng/L Total Protein 7.8 (6.5-8.0) g/dL Albumin 3.9 (3.5-5.0) g/dL Lipase 19 (8-78) U/L COVID-19 (HUGO) Negative (Negative) COVID-19 Clin Com See Note Discharge Plan Discharge Clinical Impression: Chest wall muscle strain Qualifiers: Encounter type: initial encounter Qualified Code(s): S29.011A - Strain of muscle and tendon of front wall of thorax, initial encounter Patient Disposition: Home, Self-Care Instructions: Chest Wall Pain (ED) Additional Instructions: Your exam was consistent with chest wall strain due to having to help assist to lift yourself. Screening labs including a cardiac enzyme were obtained and are normal, there were no concerning changes on her EKG in your chest x-ray was negative. Use of methocarbamol as needed for your discomfort, to note this is a muscle relaxant, it may cause drowsiness. Follow up with your primary care provider as needed. Prescriptions: New methocarbamol 500 mg tablet 500 mg PO TID PRN (Reason: pain) Qty: 15 0RF No Action atorvastatin 40 mg tablet 40 mg PO DAILY meclizine 12.5 mg tablet 12.5 mg PO TID clopidogrel 75 mg tablet 75 mg PO DAILY omeprazole 20 mg capsule,delayed release(DR/EC) 20 mg PO DAILY loratadine 10 mg tablet 10 mg PO DAILY cholecalciferol (vitamin D3) [Vitamin D3] 125 mcg (5,000 unit) tablet 125 mcg PO DAILY lisinopril 40 mg tablet 20 mg PO DAILY Qty: 30 0RF Print Language: Macedonian
[2023-10-29] MEDS: methocarbamoL 500 MG TABLET PO (17:08)
[2023-10-29 17:11] VITALS: BP 136/79; PULSE 75; RESP 19; TEMP 37; O2SAT 100
[2023-10-29 17:14] VITALS: BP 136/79; PULSE 75; RESP 19; TEMP 37; O2SAT 100
== END 2023-10-29 17:53 | disposition home or self-care (01) ==
PROVIDERS: Physician Assistant; Emergency Provider Emergency Medicine
DX: S29.011A Strain of muscle and tendon of front wall of thorax, initial encounter (principal); R07.89 Other chest pain; R20.2 Paresthesia of skin; I10 Essential (primary) hypertension; K21.9 Gastro-esophageal reflux disease without esophagitis; X58.XXXA Exposure to other specified factors, initial encounter; Y93.89 Activity, other specified; Y92.89 Other specified places as the place of occurrence of the external cause; Y99.8 Other external cause status; Z11.52 Encounter for screening for COVID-19; Z79.899 Other long term (current) drug therapy
CPT/HCPCS: 71046; 80053; 83690; 83735; 84484; 85025; 85610; 87635; 93005; 99283; 99285

== ENCOUNTER 2023-11-01 11:36 | Emergency (ER) | payer MEDICAID, SELFPAY ==
[2023-11-01] VITALS (7 sets, daily range): BP systolic 106–154; BP diastolic 56–82; PULSE 67–85; RESP 15–18; TEMP 36.6–36.9; O2SAT 96–99; BMI 46.1
--- NOTE | ~2023-11-01 | XR_ITS ---
EXAMINATION: XR CHEST CLINICAL INFORMATION: Right sided chest pressure. COMPARISON: Chest radiograph 10/29/2023. TECHNIQUE: Frontal view of the chest was obtained. FINDINGS: Low lung volumes with diffuse bronchovascular crowding. No discrete focal consolidation, pleural effusion or pneumothorax. No significant cardiomediastinal abnormality. No acute osseous findings. XR/XR chest 1V IMPRESSION: 1. Low lung volumes with diffuse bronchovascular crowding. 2. No focal consolidation, pleural effusion or pneumothorax. Electronically signed by: Cynthia Blake MD 11/01/2023 02:20 PM EDT
--- NOTE | ~2023-11-01 | XR_ITS ---
EXAMINATION: XR FOOT, RIGHT CLINICAL INFORMATION: atraumatic pain, mostly at toes COMPARISON: None available. TECHNIQUE: Four views of the right foot. FINDINGS: Residual deformity from old healed fracture mid distal shaft of the fifth metatarsal. No acute fracture. No bone destruction or abnormal periosteal reaction. Joint space is maintained. Prominent plantar calcaneal spur. XR/XR foot RT min 3V IMPRESSION: 1. No acute abnormality. 2. Old healed fracture of the fifth metatarsal. 3. Prominent plantar calcaneal spur. Electronically signed by: Yaya Presley MD 11/01/2023 04:22 PM EDT
--- NOTE | ~2023-11-01 | CT_ITS ---
EXAMINATION: CT HEAD WITHOUT CONTRAST CLINICAL INFORMATION: History of cerebral vascular accident, now presents with worsening right-sided hemiparesis COMPARISON: CT scan of brain on 08/07/2022 TECHNIQUE: Contiguous axial imaging was performed from the skull base to vertex without intravenous administration of contrast. This CT examination was performed using dose optimization techniques as appropriate, variously including the following: *Automated exposure control *Adjustment of mA and/or kV according to patient size (this includes techniques or standardized protocols for targeted exams where dose is matched to indication/reason for exam; i.e. extremities or head) *Use of iterative reconstruction technique DLP: 777 mGy-cm FINDINGS: Ventricles, sulci and cisterns are normal. There is no midline shift, no abnormal intra- or extra- axial fluid accumulation. Schilling and white matter differentiation is normal. Bone window images show no evidence of skull fracture. There is asymmetric opacification of left mastoid air cells and left aditus ad antrum, compatible with effusion. CT/CT head/brain wo IV con IMPRESSION: 1. Normal CT scan of the brain. 2. No intracranial hemorrhage or skull fracture is seen. 3. No evidence of space occupying lesion could be found. 4. The current plain CT scan of the brain shows no diagnostic evidence of acute cerebral infarction. 5. Interval development of left mastoid effusion. Electronically signed by: Angie Tanner MD 11/01/2023 02:51 PM EDT
--- NOTE | 2023-11-01 11:45 | ED_ITS ---
HPI - Neuro Symptoms/Deficit General Chief Complaint: Stroke Stated Complaint: R SIDED DEFECITS Time Seen by Provider: 11/01/23 11:45 History of Present Illness ED Provider: Krystle JAVED Narrative: The patient is a 62-year-old woman with a history of multiple medical problems. She has a history of hypertension, GERD, hyperlipidemia, and prior strokes. She apparently has a history of chronic right-sided weakness from a previous stroke. The patient is currently in the process of relocating to [place] from [place], [place]. She is a long-time resident of [place] but has recently been approved for housing through a section 8 program and she has no family members anymore in [place] and so has decided to come to [place] where she has family members. For the last month or so she has been staying at her sister's apartment here in [place]. She does not have any local doctors. The patient says that over the last 2 days she has had headaches, chest pressure, some general sense of numbness and weakness through much of her body. She also has pain in the toes of the right foot. No injury to the right foot. The patient says that she has weakness of her right arm and right leg. This weakness is chronic and considered to be a deficit from a prior stroke. She may have some mild worsening of her weakness but no severe worsening of her weakness. She has not had any difficulty speaking. She has had no fever, sweats, chills. Today she had her ONLINE TRADER drive her to the [facility] because of the symptoms she has had for the last 48 hours. At the [facility] an ambulance was called and she was brought to the hospital. The patient was seen at this hospital over a year ago on July of 2022 for a complaint of right-sided weakness. At that time she had a negative CT angiogram of the head and neck. She was admitted for a stroke workup. She could not have an MRI because of her size and because of claustrophobia. Her workup was otherwise unremarkable and no specific diagnosis was made at that time. Patient was seen at the emergency room here 3 days ago on October 28 for a chest pain syndrome that was felt to be chest wall pain. The patient is on clopidogrel. The patient has an aspirin allergy. Related Data Home Medications ?Medication ?Instructions ?Recorded ?Confirmed atorvastatin 40 mg tablet 40 mg PO DAILY 08/06/22 08/06/22 cholecalciferol (vitamin D3) 125 125 mcg PO DAILY 08/06/22 08/06/22 mcg (5,000 unit) tablet (Vitamin D3) clopidogrel 75 mg tablet 75 mg PO DAILY 08/06/22 08/06/22 loratadine 10 mg tablet 10 mg PO DAILY 08/06/22 08/06/22 meclizine 12.5 mg tablet 12.5 mg PO TID 08/06/22 08/06/22 omeprazole 20 mg capsule,delayed 20 mg PO DAILY 08/06/22 08/06/22 release Previous Rx's ?Medication ?Instructions ?Recorded lisinopril 40 mg tablet 20 mg (1/2 x 40 mg) PO DAILY #30 08/08/22 tabs methocarbamol 500 mg tablet 500 mg PO TID PRN pain #15 tabs 10/29/23 Allergies Allergy/AdvReac Type Severity Reaction Status Date / Time aspirin [Aspirin] Allergy Mild SWELLING, Verified 11/01/23 11:47 facial swelling, redness Sulfa (Sulfonamide Allergy Mild SWELLING, Verified 11/01/23 11:47 Antibiotics) facial [Sulfa (Sulfonamides)] swelling, redness Aspirin Allergy Unknown facial Uncoded 11/01/23 11:47 swolling sulfa Allergy Unknown facial Uncoded 11/01/23 11:47 swolling Review of Systems 2 Review of Systems: Yes all other systems are reviewed and are negative FOR[facility]LY [facility], [facility] Past Medical History Medical History Essential hypertension Mixed hyperlipidemia Mood disorder Social History Social History Household Members: None Housing: House Patient Tobacco Use Status: Never used Tobacco Advance Directives: No Advance Directives Information Provided: Yes service: No Current occupational status: disabled Physical Exam 2 Vital Signs: Vital Signs: Last Vital Signs Temp 97.9 F 11/01/23 16:00 Pulse 79 11/01/23 16:00 Resp 15 11/01/23 16:00 BP 106/56 L 11/01/23 16:00 Pulse Ox 96 11/01/23 16:00 O2 Del Method Room Air 11/01/23 16:00 BMI result Body Mass Index 46.1 Const: Other: The patient is a morbidly obese 62-year-old who was awake and alert with a normal mental status. Speech is clear. She does not appear acutely uncomfortable or acutely ill. HEENT: Other: No facial asymmetry. Mucous membranes are moist. The tongue is midline. Eyes: Other: Pupils are round equal, conjunctivae are clear, extraocular movements are intact. Neck: Other: Moving her neck easily. Neck: Yes full ROM, Yes no lymphadenopathy and Yes no JVD Resp: Effort & Inspection: normal respiratory effort Auscultation: clear to auscultation bilaterally Cardio: Rate: regular rate Rhythm: regular rhythm Heart sounds: S1 normal heart sound present and S2 normal heart sound present GI: Other: The abdomen is soft and nontender Skin: Other: The skin is dry and unremarkable Neuro: Other: The patient is awake and alert with a normal mental status. She is oriented appropriately. Eye movements are intact. Visual urbina are intact to confrontation. Face is symmetrical. Speech is clear. No aphasia or dysarthria. She seems to have some mild weakness of the right arm compared to the left arm. There was no pronator drift. Seems to have some mild weakness of the right leg compared to the left leg. The right-sided weakness is apparently chronic. No sensory deficits. Medications Administered Discontinued Medications Generic Name Dose Route Start Last Admin Trade Name Ney PRN Reason Stop Dose Admin Acetaminophen 975 mg 11/01/23 13:12 11/01/23 13:41 Acetaminophen 325 Mg Tablet PO 11/01/23 13:13 975 mg ONCE ONE Administration Morphine Sulfate 4 mg 11/01/23 13:14 11/01/23 13:41 Morphine Sulfate 4 Mg/Ml Cartridge IVPUSH 11/01/23 13:15 4 mg ONCE ONE Administration Protocol Ondansetron HCl 4 mg 11/01/23 13:14 11/01/23 13:42 Ondansetron Hcl 4 Mg/2 Ml Vial IVPUSH 11/01/23 13:15 4 mg ONCE ONE Administration Medical Decision Making Medical Decision Making [facility] Narrative: The patient is a 62-year-old female with a history of chronic right-sided weakness who presents with a number of different symptoms including headache, chest pain, and right foot pain. Her physical exam does not show findings that seem different from what I believe is her baseline weakness in the right arm in the right leg. She has a negative head CT after 2 days of symptoms. She has a negative troponin after 2 days of chest discomfort. Overall her workup is negative. She was given a dose of acetaminophen and a dose of morphine for discomfort. She seemed to feel better. She seemed to be comfortable being discharged. She was seen by Physical therapy who felt that she was walking safely with a walker. She will arrange for her ONLINE TRADER to pick her up. The patient is new in the area and does not yet have a local primary care doctor. She is working on getting a new PCP at the [facility]. Lab Data 11/01/23 13:01 11/01/23 13:01 Labs: Lab Results 11/01/23 11/01/23 11/01/23 Range/Units 13:01 13:05 13:21 WBC 8.4 (4.8-10.8) X10*3/uL RBC 4.13 L (4.20-5.50) X10*6/uL Hgb 12.2 (12.0-16.0) g/dl Hct 36.4 L (37.0-47.0) % MCV 88.1 (80.0-98.0) fL MCH 29.5 (27.0-33.0) pg MCHC 33.5 (31.0-35.0) g/dl RDW 13.1 (11.0-16.0) % Plt Count 335 (160-400) X10*3/uL MPV 9.4 (9.4-12.3) fL Immature Gran % (Auto) 0.7 H (0.0-0.4) % Neut % (Auto) 66.6 (45-73) % Lymph % (Auto) 24.0 (20-40) % [place] % (Auto) 6.8 (2-11) % Eos % (Auto) 1.2 (0-4) % Baso % (Auto) 0.7 (0-2) % Lymph # (Auto) 2.0 (1.2-4.9) X10*3/uL [place] # (Auto) 0.6 (0.1-1.2) X10*3/uL Eos # (Auto) 0.1 (0.0-0.4) X10*3/uL Baso # (Auto) 0.1 (0.0-0.2) X10*3/uL Abs Immat Gran (auto) 0.06 H (0.00-0.03) X10*3/uL Absolute Neuts (auto) 5.6 (2.0-8.3) x10*3/uL Absolute Nucleated RBC 0.000 (0.0-0.012) X10*3/uL Nucleated RBC % (auto) 0.0 (0.0-0.2) /100WBC PT 12.5 (11.1-13.3) SEC INR 1.0 (0.9-1.1) VBG pH 7.39 (7.32-7.43) VBG pCO2 49 mmHg VBG pO2 20 mmHg VBG HCO3 30 H (22-26) mmol/L VBG O2 Saturation 56.0 % VBG Base Excess 4.4 mmol/L Sodium 141 (135-145) mmol/L Potassium 4.1 (3.3-5.1) mmol/L Chloride 104 (96-108) mmol/L Carbon Dioxide 26 (22-29) mmol/L Anion Gap 15 (12-20) BUN 22 H (9-16) mg/dL Creatinine 0.85 (0.5-1.4) mg/dL Estim Creat Clear Calc 92.3 Estimated GFR > 60 POC Glucose (60-115) mg/dL Random Glucose 91 (60-115) mg/dL Calcium 10.3 H (8.4-10.2) mg/dL Magnesium 2.0 (1.6-2.6) mg/dL Total Bilirubin 0.4 (0.0-1.0) mg/dL Direct Bilirubin 0.1 (0.0-0.5) mg/dL AST 13 (5-31) U/L ALT 8 (0-31) U/L Alkaline Phosphatase 62 (39-117) U/L Troponin I High Sens 3.2 (<3.5-17.0) ng/L B-Natriuretic Peptide 28 (<100) pg/mL Total Protein 7.5 (6.5-8.0) g/dL Albumin 3.8 (3.5-5.0) g/dL Urine Color Yellow Urine Appearance Hazy Urine pH 6.0 (5.0-9.0) Ur Specific [place] 1.010 (1.005-1.025) Urine Protein Negative (Neg-Trace) mg/dL Urine Glucose (UA) Negative (Negative) mg/dL Urine Ketones Negative (Negative) mg/dL Urine Blood Trace (Negative) Urine Nitrite Positive H (Negative) Ur Leukocyte Esterase Small (1+) H (Negative) Urine RBC 0-2 (0-2) /HPF Urine WBC 0-5 (0-5) /HPF Ur Squamous Epith Cells 0-2 (0-2) /HPF Urine Bacteria 3+ (None Seen) Hyaline Casts 0-2 (0-2) /LPF Urine Opiates Screen Not Detected (Not Detect) Ur Buprenorphine Scrn Not Detected (Not Detect) ng/mL Ur Oxycodone Screen Not Detected (Not Detect) ng/mL Urine Methadone Screen Not Detected (Not Detect) ng/mL Urine Fentanyl Screen Not Detected (Not Detect) Ur Barbiturates Screen Not Detected (Not Detect) Ur Phencyclidine Scrn Not Detected (Not Detect) Ur Amphetamines Screen Not Detected (Not Detect) U Benzodiazepines Scrn Not Detected (Not Detect) Urine Cocaine Screen Not Detected (Not Detect) U Marijuana (THC) Screen Not Detected (Not Detect) Ethyl Alcohol < 10 mg/dL Influenza Type A (PCR) NEGATIVE (Negative) Influenza Type B (PCR) NEGATIVE (Negative) RSV RNA Qual (PCR) NEGATIVE (Negative) SARS-CoV-2 RNA (RT-PCR) NEGATIVE (Negative) 11/01/23 Range/Units 14:14 WBC (4.8-10.8) X10*3/uL RBC (4.20-5.50) X10*6/uL Hgb (12.0-16.0) g/dl Hct (37.0-47.0) % MCV (80.0-98.0) fL MCH (27.0-33.0) pg MCHC (31.0-35.0) g/dl RDW (11.0-16.0) % Plt Count (160-400) X10*3/uL MPV (9.4-12.3) fL Immature Gran % (Auto) (0.0-0.4) % Neut % (Auto) (45-73) % Lymph % (Auto) (20-40) % [place] % (Auto) (2-11) % Eos % (Auto) (0-4) % Baso % (Auto) (0-2) % Lymph # (Auto) (1.2-4.9) X10*3/uL [place] # (Auto) (0.1-1.2) X10*3/uL Eos # (Auto) (0.0-0.4) X10*3/uL Baso # (Auto) (0.0-0.2) X10*3/uL Abs Immat Gran (auto) (0.00-0.03) X10*3/uL Absolute Neuts (auto) (2.0-8.3) x10*3/uL Absolute Nucleated RBC (0.0-0.012) X10*3/uL Nucleated RBC % (auto) (0.0-0.2) /100WBC PT (11.1-13.3) SEC INR (0.9-1.1) VBG pH (7.32-7.43) VBG pCO2 mmHg VBG pO2 mmHg VBG HCO3 (22-26) mmol/L VBG O2 Saturation % VBG Base Excess mmol/L Sodium (135-145) mmol/L Potassium (3.3-5.1) mmol/L Chloride (96-108) mmol/L Carbon Dioxide (22-29) mmol/L Anion Gap (12-20) BUN (9-16) mg/dL Creatinine (0.5-1.4) mg/dL Estim Creat Clear Calc Estimated GFR POC Glucose 76 (60-115) mg/dL Random Glucose (60-115) mg/dL Calcium (8.4-10.2) mg/dL Magnesium (1.6-2.6) mg/dL Total Bilirubin (0.0-1.0) mg/dL Direct Bilirubin (0.0-0.5) mg/dL AST (5-31) U/L ALT (0-31) U/L Alkaline Phosphatase (39-117) U/L Troponin I High Sens (<3.5-17.0) ng/L B-Natriuretic Peptide (<100) pg/mL Total Protein (6.5-8.0) g/dL Albumin (3.5-5.0) g/dL Urine Color Urine Appearance Urine pH (5.0-9.0) Ur Specific [place] (1.005-1.025) Urine Protein (Neg-Trace) mg/dL Urine Glucose (UA) (Negative) mg/dL Urine Ketones (Negative) mg/dL Urine Blood (Negative) Urine Nitrite (Negative) Ur Leukocyte Esterase (Negative) Urine RBC (0-2) /HPF Urine WBC (0-5) /HPF Ur Squamous Epith Cells (0-2) /HPF Urine Bacteria (None Seen) Hyaline Casts (0-2) /LPF Urine Opiates Screen (Not Detect) Ur Buprenorphine Scrn (Not Detect) ng/mL Ur Oxycodone Screen (Not Detect) ng/mL Urine Methadone Screen (Not Detect) ng/mL Urine Fentanyl Screen (Not Detect) Ur Barbiturates Screen (Not Detect) Ur Phencyclidine Scrn (Not Detect) Ur Amphetamines Screen (Not Detect) U Benzodiazepines Scrn (Not Detect) Urine Cocaine Screen (Not Detect) U Marijuana (THC) Screen (Not Detect) Ethyl Alcohol mg/dL Influenza Type A (PCR) (Negative) Influenza Type B (PCR) (Negative) RSV RNA Qual (PCR) (Negative) SARS-CoV-2 RNA (RT-PCR) (Negative) Independent Interpretation I performed an independent interpretation of an: EKG Interpretation: EKG at 1203 shows normal sinus rhythm at 77 beats per minute. I do not feel the EKG shows any acute findings. They do not feel the EKGs significantly different from previous EKGs. Discharge Plan Discharge Clinical Impression: Headache, Right sided weakness, Chest pain, Right foot pain Additional Instructions: Your testing in the emergency room today seems reassuring. Please continue your regular medications. Make sure you drink a lot of fluids. Please work on getting a new primary care doctor at the [facility]. Return to the emergency department if you feel significantly worse. Prescriptions: No Action methocarbamol 500 mg tablet 500 mg PO TID PRN (Reason: pain) Qty: 15 0RF atorvastatin 40 mg tablet 40 mg PO DAILY meclizine 12.5 mg tablet 12.5 mg PO TID clopidogrel 75 mg tablet 75 mg PO DAILY omeprazole 20 mg capsule,delayed release(DR/EC) 20 mg PO DAILY loratadine 10 mg tablet 10 mg PO DAILY cholecalciferol (vitamin D3) [Vitamin D3] 125 mcg (5,000 unit) tablet 125 mcg PO DAILY lisinopril 40 mg tablet 20 mg PO DAILY Qty: 30 0RF Referrals: [facility] [Provider Group] (New in area, needs new PCP. ) Print Language: Austrian
--- NOTE | 2023-11-01 12:02 | ECG_ITS ---
Test Reason : CHEST PAIN Blood Pressure : / mmHG Vent. Rate : 077 BPM Atrial Rate : 077 BPM P-R Int : 126 ms QRS Dur : 080 ms QT Int : 386 ms P-R-T Axes : 053 014 035 degrees QTc Int : 436 ms Normal sinus rhythm Septal infarct , age undetermined Abnormal ECG When compared with ECG of 29-OCT-2023 11:24, Septal infarct is now Present Referred By: Lewis Dalton Electronically Signed By:YOSELYN CARDOZA
[2023-11-01 13:05] LABS: MANUAL DIFF FLAG NO
[2023-11-01 13:07] LABS: Basophils Absolute Auto 0.1 X10*3/uL (0.0-0.2); Basophils Percent Auto 0.7 % (0-2); Eosinophils Absolute Auto 0.1 X10*3/uL (0.0-0.4); Eosinophils Percent Auto 1.2 % (0-4); Hematocrit 36.4 % (37.0-47.0); Hemoglobin 12.2 g/dl (12.0-16.0); Imm Gran Abs Auto 0.06 X10*3/uL (0.00-0.03); Imm Gran Pct Auto 0.7 % (0.0-0.4); Mean Corpuscular HGB Conc 33.5 g/dl (31.0-35.0); Mean Corpuscular Hemoglobin 29.5 pg (27.0-33.0); Mean Corpuscular Volume 88.1 fL (80.0-98.0); Mean Platelet Volume 9.4 fL (9.4-12.3); Monocytes Absolute Auto 0.6 X10*3/uL (0.1-1.2); Monocytes Percent Auto 6.8 % (2-11); Neutrophils Absolute Auto 5.6 x10*3/uL (2.0-8.3); Neutrophils Percent Auto 66.6 % (45-73); Platelet Count 335 X10*3/uL (160-400); Red Blood Count 4.13 X10*6/uL (4.20-5.50); Red Cell Distribution Width 13.1 % (11.0-16.0); White Blood Count 8.4 X10*3/uL (4.8-10.8)
[2023-11-01 13:09] LABS: VBG Base Excess 4.4 mmol/L; VBG HCO3 30 mmol/L (22-26); VBG pCO2 49 mmHg; VBG pH 7.39 (7.32-7.43); VBG pO2 20 mmHg
[2023-11-01 13:09] LABS: Venous Blood Gas Refer to POC result
[2023-11-01 13:11] LABS: Prothrombin Time 12.5 SEC (11.1-13.3)
[2023-11-01 13:25] LABS: Alanine Aminotransferase 8 U/L (0-31); Albumin Level 3.8 g/dL (3.5-5.0); Alkaline Phosphatase 62 U/L (39-117); Anion Gap 15 (12-20); Aspartate Amino Transferase 13 U/L (5-31); Bilirubin Direct 0.1 mg/dL (0.0-0.5); Bilirubin Total 0.4 mg/dL (0.0-1.0); Blood Urea Nitrogen 22 mg/dL (9-16); Calcium 10.3 mg/dL (8.4-10.2); Carbon Dioxide 26 mmol/L (22-29); Chloride 104 mmol/L (96-108); Creatinine Clr Calc Pharmacy 92.3; Estimated Glomerular Filt Rate > 60; Ethanol < 10 mg/dL; Glucose Random 91 mg/dL (60-115); Potassium 4.1 mmol/L (3.3-5.1); Sodium 141 mmol/L (135-145); Total Protein 7.5 g/dL (6.5-8.0)
[2023-11-01 13:27] LABS: B Type Natriuretic Peptide 28 pg/mL (<100)
[2023-11-01 13:28] LABS: Troponin-I High Sensitivity 3.2 ng/L (<3.5-17.0)
[2023-11-01 13:29] LABS: Appearance Urine Hazy; Color Urine Yellow; Glucose Urine UA Negative (Negative); Leukocyte Esterase Urine Small (1+) (Negative); Nitrite Urine Positive (Negative); UMIC TRIGGER UACC YES; Urine Blood Trace (Negative); Urine Ketones Negative (Negative); Urine Protein Negative (Neg-Trace)
[2023-11-01 13:37] LABS: RBC Urine 0-2 /HPF (0-2); Squamous Epithelial Cell Urine 0-2 /HPF (0-2); UACC Culture Trigger YES; WBC Urine 0-5 /HPF (0-5)
[2023-11-01 13:38] LABS: Amphetamine Screen Urine Not Detected (Not Detect); Bacteria Urine 3+ (None Seen); Barbiturates, Urine Not Detected (Not Detect); Benzodiazepines Screen Urine Not Detected (Not Detect); Buprenorphine Scr Not Detected (Not Detect); Cannabinoid Screen Urine Not Detected (Not Detect); Cocaine Screen Urine Not Detected (Not Detect); Fentanyl, urine Not Detected (Not Detect); Hyaline Casts Urine 0-2 /LPF (0-2); Methadone Screen, Urine Not Detected (Not Detect); Opiate Screen Urine Not Detected (Not Detect); Oxycodone Screen Urine Not Detected (Not Detect); Phencyclidine Screen Urine Not Detected (Not Detect)
[2023-11-01] MEDS: Morphine Sulfate 4 MG/ML CARTRIDGE IVPUSH (13:41)
[2023-11-01] MEDS: Acetaminophen 325 MG TABLET 975 MG PO (13:41)
[2023-11-01] MEDS: ondansetron HCL 4 MG/2 ML VIAL IVPUSH (13:42)
[2023-11-01 14:00] LABS: Influenza A PCR NEGATIVE (Negative); Influenza B PCR NEGATIVE (Negative); Resp Syncy Virus RNA Qual PCR NEGATIVE (Negative); SARS COV2 PCR INHOUSE NEGATIVE (Negative)
[2023-11-01 14:17] LABS: Glucose, Whole Blood 76 mg/dL (60-115)
== END 2023-11-01 17:52 | disposition home or self-care (01) ==
PROVIDERS: Emergency Provider Emergency Medicine
DX: R51.9 Headache, unspecified (principal); R53.1 Weakness; R07.9 Chest pain, unspecified; M79.671 Pain in right foot; Z03.818 Encounter for observation for suspected exposure to other biological agents ruled out; Z79.899 Other long term (current) drug therapy
CPT/HCPCS: 0241U; 36415; 70450; 71045; 73630; 80048; 80076; 80307; 81001; 82803; 82947; 83735; 83880; 84484; 85025; 85610; 87086; 87088; 87186; 93005; 96374; 96375; 97161; 99284; 99285; J2270; J2405

== ENCOUNTER 2024-01-13 10:52 | Emergency (ER) | payer OTHER, SELFPAY ==
--- NOTE | 2024-01-13 | ECG_ITS ---
Test Reason : CHEST PAIN Blood Pressure : / mmHG Vent. Rate : 072 BPM Atrial Rate : 072 BPM P-R Int : 132 ms QRS Dur : 082 ms QT Int : 420 ms P-R-T Axes : 042 004 030 degrees QTc Int : 459 ms Normal sinus rhythm Normal ECG When compared with ECG of 01-NOV-2023 12:03, Criteria for Septal infarct are no longer Present Referred By: Generic ED Physician Electronically Signed By:RONALD STAHL MD
--- NOTE | ~2024-01-13 | US_ITS ---
EXAMINATION: US VENOUS RIGHT LOWER EXTREMITY CLINICAL INFORMATION: Right leg swelling COMPARISON: None. TECHNIQUE: Doppler spectral analysis and color flow Doppler imaging was performed of the right lower extremity. Compression and augmentation maneuvers were performed. FINDINGS: The right common femoral, femoral, popliteal and calf veins were well-identified and normal. They demonstrate normal compressibility and color fill-in. The contralateral left common femoral vein appeared normal. US/US venous duplex LE RT IMPRESSION: No evidence for right lower extremity deep vein thrombosis. Electronically signed by: Navi Amato MD 01/13/2024 04:48 PM EST
--- NOTE | ~2024-01-13 | XR_ITS ---
EXAMINATION: XR CHEST CLINICAL INFORMATION: Chest pain. COMPARISON: 11/01/2023 TECHNIQUE: 2 views of the chest were obtained. FINDINGS: Low lung volumes. There is no gross pneumothorax. Stable cardiomediastinal silhouette. Degenerative changes in the thoracic spine. Limited visualization particularly on the lateral view due to body habitus and technical factors. Lateral view is almost nondiagnostic and should be repeated at no charge to the patient. When this image is provided, an addendum will be dictated. Redemonstration of diffuse bronchovascular crowding with low lung volumes. No focal consolidation appreciated. Possible trace left pleural effusion. XR/XR chest 2V IMPRESSION: Limited visualization particularly on the lateral view due to body habitus and technical factors. Lateral view is almost nondiagnostic and should be repeated at no charge to the patient. When this image is provided, an addendum will be dictated. Redemonstration of diffuse bronchovascular crowding with low lung volumes. No focal consolidation appreciated. Possible trace left pleural effusion. This study was presented today January 13, 2024 for interpretation. Stat results provided at this time as requested by referring provider. Electronically signed by: Rachael Diaz MD 01/13/2024 01:24 PM JENA
[2024-01-13 11:08] VITALS: BP 134/59; BP 93/60; PULSE 71; PULSE 74; RESP 20; TEMP 36.6; O2SAT 94; O2SAT 96; BMI 50.4
[2024-01-13 11:19] LABS: MANUAL DIFF FLAG NO
[2024-01-13 11:21] LABS: Basophils Absolute Auto 0.1 X10*3/uL (0.0-0.2); Basophils Percent Auto 0.5 % (0-2); Eosinophils Absolute Auto 0.2 X10*3/uL (0.0-0.4); Eosinophils Percent Auto 1.6 % (0-4); Hematocrit 38.1 % (37.0-47.0); Hemoglobin 12.9 g/dl (12.0-16.0); Lymphocytes Absolute Auto 2.6 X10*3/uL (1.2-4.9); Mean Corpuscular HGB Conc 33.9 g/dl (31.0-35.0); Mean Corpuscular Hemoglobin 29.9 pg (27.0-33.0); Mean Corpuscular Volume 88.2 fL (80.0-98.0); Mean Platelet Volume 9.2 fL (9.4-12.3); Monocytes Absolute Auto 0.6 X10*3/uL (0.1-1.2); Monocytes Percent Auto 5.8 % (2-11); Neutrophils Absolute Auto 6.1 x10*3/uL (2.0-8.3); Neutrophils Percent Auto 64.1 % (45-73); Platelet Count 333 X10*3/uL (160-400); Red Blood Count 4.32 X10*6/uL (4.20-5.50); Red Cell Distribution Width 12.6 % (11.0-16.0); White Blood Count 9.6 X10*3/uL (4.8-10.8)
[2024-01-13 11:43] LABS: Anion Gap 13 (12-20); Blood Urea Nitrogen 24 mg/dL (9-16); Calcium 10.3 mg/dL (8.4-10.2); Carbon Dioxide 27 mmol/L (22-29); Chloride 104 mmol/L (96-108); Creatinine Clr Calc Pharmacy 83.5; Estimated Glomerular Filt Rate > 60; Glucose Random 86 mg/dL (60-115); Potassium 4.2 mmol/L (3.3-5.1); Sodium 140 mmol/L (135-145)
[2024-01-13 12:03] LABS: Troponin-I High Sensitivity < 2.7 ng/L (<3.5-17.0)
[2024-01-13 12:35] VITALS: BP 128/106; PULSE 75; RESP 17; TEMP 36.6
--- NOTE | 2024-01-13 12:45 | MHC.EDTECH ---
purewick placed for patient as she states she can not walk and patient unable to use bedpan.
--- NOTE | 2024-01-13 12:50 | ED_ITS ---
HPI - Chest Pain General Chief Complaint: Chest Pain Stated Complaint: CP X3 DAYS PER EMS Time Seen by Provider: 01/13/24 12:20 History of Present Illness ED Provider: Dr. Nichols HPI narrative: 63 y/o F patient; PMH HTN, HLD, GERD, hx CVA, chronic right-sided weakness, obesity; presents from home with report of four days of central non-radiating chest pain associated with lightheadedness. She denies: diaphoresis, nausea/vomiting, abdominal pain, back pain. She was previously seen in this emergency department on 10/28 and 11/01/2023 for similar symptoms. She had an ACS work up which was reassuring and she was discharged to home with PCP follow up. Impression was chest wall strain. The patient states she is currently on a waiting list for a primary care physician. Related Data Home Medications ?Medication ?Instructions ?Recorded ?Confirmed atorvastatin 40 mg tablet 40 mg PO DAILY 08/06/22 08/06/22 cholecalciferol (vitamin D3) 125 125 mcg PO DAILY 08/06/22 08/06/22 mcg (5,000 unit) tablet (Vitamin D3) clopidogrel 75 mg tablet 75 mg PO DAILY 08/06/22 08/06/22 loratadine 10 mg tablet 10 mg PO DAILY 08/06/22 08/06/22 meclizine 12.5 mg tablet 12.5 mg PO TID 08/06/22 08/06/22 omeprazole 20 mg capsule,delayed 20 mg PO DAILY 08/06/22 08/06/22 release Previous Rx's ?Medication ?Instructions ?Recorded lisinopril 40 mg tablet 20 mg (1/2 x 40 mg) PO DAILY #30 08/08/22 tabs methocarbamol 500 mg tablet 500 mg PO TID PRN pain #15 tabs 10/29/23 Allergies Allergy/AdvReac Type Severity Reaction Status Date / Time aspirin [Aspirin] Allergy Mild SWELLING, Verified 01/13/24 11:10 facial swelling, redness Sulfa (Sulfonamide Allergy Mild SWELLING, Verified 01/13/24 11:10 Antibiotics) facial [Sulfa (Sulfonamides)] swelling, redness Aspirin Allergy Unknown facial Uncoded 01/13/24 11:10 swolling sulfa Allergy Unknown facial Uncoded 01/13/24 11:10 swolling Review of Systems 2 Review of Systems: Yes all other systems are reviewed and are negative [facility] Past Medical History Attestation statement: The following information was validated with the patient. Source: old records reviewed Medical History Mood disorder Mixed hyperlipidemia Essential hypertension UTI (urinary tract infection) CVA (cerebral vascular accident) Social History Social History Household Members: None Housing: House Patient Tobacco Use Status: Never used Tobacco Advance Directives: No Advance Directives Information Provided: Yes service: No Current occupational status: disabled Physical Exam 2 Vital Signs: Vital Signs: Last Vital Signs Temp 97.9 F 01/13/24 16:21 Pulse 74 01/13/24 16:21 Resp 16 01/13/24 16:21 BP 127/65 01/13/24 16:21 Pulse Ox 99 01/13/24 16:21 O2 Del Method Room Air 01/13/24 16:21 BMI result Body Mass Index 50.4 Patient is afebrile and hemodynamically stable Const: General: cooperative and no acute distress O rientation/consciousness: patient oriented x3 HEENT: Head: Yes normal to inspection and Yes atraumatic Eyes: General: appearance normal, both eyes and all related structures P upils: Equal, round and reactive pupils present Neck: Neck: Yes normal visual inspection, Yes full ROM, Yes supple and No tender Chest: Chest palpation & inspection: normal inspection of the chest and normal palpation of entire chest wall Resp: Effort & Inspection: normal respiratory effort and able to speak in complete sentences Auscultation: clear to auscultation bilaterally Cardio: Rate: regular rate Rhythm: regular rhythm Peripheral pulses: P eripheral pulses 2+ throughout GI: Inspection: Yes normal to inspection, No Abdominal wall edema and No distended Palpation (GI): Soft to palpation, not firm, nontender, no guarding and not rigid : General: Yes no CVA tenderness Back/Spine/Pelvis: Back: no CVA tenderness Neuro: General: patient oriented x3 Cranial nerves: Yes Equal, round and reactive pupils present Extrem: Other: Mild RLE posterior calf tenderness and very slight asymetry compared to LLE Course Course Course Narrative: Patient is afebrile and hemodynamically stable. Will obtain EKG, CXR, and laboratory studies. Labs reviewed. No leukocytosis. Troponin negative, low risk of ACS given 4 days of symptoms with reassuring troponin and EKG. Will order d-dimer to assess for risk of RLE DVT. D-dimer is mildly elevated. Will obtain US RLE. US RLE unremarkable for DVT. Low suspicion for hemodynamically significant PE given lack of tachycardia, tachypnea, shortness of breath. Plan: Discharge to home with out-patient PCP follow up Return precautions given Medical Decision Making Lab Data 01/13/24 11:15 01/13/24 11:15 Labs: Lab Results 01/13/24 01/13/24 Range/Units 11:15 14:13 WBC 9.6 (4.8-10.8) X10*3/uL RBC 4.32 (4.20-5.50) X10*6/uL Hgb 12.9 (12.0-16.0) g/dl Hct 38.1 (37.0-47.0) % MCV 88.2 (80.0-98.0) fL MCH 29.9 (27.0-33.0) pg MCHC 33.9 (31.0-35.0) g/dl RDW 12.6 (11.0-16.0) % Plt Count 333 (160-400) X10*3/uL MPV 9.2 L (9.4-12.3) fL Immature Gran % (Auto) 1.0 H (0.0-0.4) % Neut % (Auto) 64.1 (45-73) % Lymph % (Auto) 27.0 (20-40) % Br[place]ley % (Auto) 5.8 (2-11) % Eos % (Auto) 1.6 (0-4) % Baso % (Auto) 0.5 (0-2) % Lymph # (Auto) 2.6 (1.2-4.9) X10*3/uL [place] # (Auto) 0.6 (0.1-1.2) X10*3/uL Eos # (Auto) 0.2 (0.0-0.4) X10*3/uL Baso # (Auto) 0.1 (0.0-0.2) X10*3/uL Abs Immat Gran (auto) 0.10 H (0.00-0.03) X10*3/uL Absolute Neuts (auto) 6.1 (2.0-8.3) x10*3/uL Absolute Nucleated RBC 0.000 (0.0-0.012) X10*3/uL Nucleated RBC % (auto) 0.0 (0.0-0.2) /100WBC D-Dimer High Sensitivty 754 NG/ML Sodium 140 (135-145) mmol/L Potassium 4.2 (3.3-5.1) mmol/L Chloride 104 (96-108) mmol/L Carbon Dioxide 27 (22-29) mmol/L Anion Gap 13 (12-20) BUN 24 H (9-16) mg/dL Creatinine 0.88 (0.5-1.4) mg/dL Estim Creat Clear Calc 83.5 Estimated GFR > 60 Random Glucose 86 (60-115) mg/dL Calcium 10.3 H (8.4-10.2) mg/dL Total Bilirubin 0.4 (0.0-1.0) mg/dL Direct Bilirubin 0.2 (0.0-0.5) mg/dL AST 19 (5-31) U/L ALT 7 (0-31) U/L Alkaline Phosphatase 61 (39-117) U/L Troponin I High Sens < 2.7 (<3.5-17.0) ng/L Total Protein 8.0 (6.5-8.0) g/dL Albumin 4.0 (3.5-5.0) g/dL Lipase 16 (8-78) U/L Independent Interpretation I performed an independent interpretation of an: EKG Interpretation: NSR 72BPM without ischemic changes, normal intervals Radiology Impression Discussion of test interpretation with radiology: I have reviewed the radiologist's reading. Radiologist Impression: EXAMINATION: XR CHEST CLINICAL INFORMATION: Chest pain. COMPARISON: 11/01/2023 TECHNIQUE: 2 views of the chest were obtained. FINDINGS: Low lung volumes. There is no gross pneumothorax. Stable cardiomediastinal silhouette. Degenerative changes in the thoracic spine. Limited visualization particularly on the lateral view due to body habitus and technical factors. Lateral view is almost nondiagnostic and should be repeated at no charge to the patient. When this image is provided, an addendum will be dictated. Redemonstration of diffuse bronchovascular crowding with low lung volumes. No focal consolidation appreciated. Possible trace left pleural effusion. XR/XR chest 2V IMPRESSION: Limited visualization particularly on the lateral view due to body habitus and technical factors. Lateral view is almost nondiagnostic and should be repeated at no charge to the patient. When this image is provided, an addendum will be dictated. Redemonstration of diffuse bronchovascular crowding with low lung volumes. No focal consolidation appreciated. Possible trace left pleural effusion. This study was presented today January 13, 2024 for interpretation. Stat results provided at this time as requested by referring provider. Electronically signed by: Rachael Diaz MD 01/13/2024 01:24 PM EST RP EXAMINATION: US VENOUS RIGHT LOWER EXTREMITY CLINICAL INFORMATION: Right leg swelling COMPARISON: None. TECHNIQUE: Doppler spectral analysis and color flow Doppler imaging was performed of the right lower extremity. Compression and augmentation maneuvers were performed. FINDINGS: The right common femoral, femoral, popliteal and calf veins were well-identified and normal. They demonstrate normal compressibility and color fill-in. The contralateral left common femoral vein appeared normal. US/US venous duplex LE RT IMPRESSION: No evidence for right lower extremity deep vein thrombosis. Electronically signed by: Navi Amato MD 01/13/2024 04:48 PM EST RP Discharge Plan Discharge Clinical Impression: Atypical chest pain Patient Disposition: Home, Self-Care Instructions: Chest Pain (DC) Additional Instructions: As we discussed, you were seen today for chest pain. Your EKG, CXR, and labs were reassuring. Your US did not show any blood clots. Please follow up with a PCP within the next several days for re-evaluation and to discuss your recent emergency department visit. Return to the emergency department for: Worsening chest pain Difficulty breathing Passing out Prescriptions: No Action methocarbamol 500 mg tablet 500 mg PO TID PRN (Reason: pain) Qty: 15 0RF atorvastatin 40 mg tablet 40 mg PO DAILY meclizine 12.5 mg tablet 12.5 mg PO TID clopidogrel 75 mg tablet 75 mg PO DAILY omeprazole 20 mg capsule,delayed release(DR/EC) 20 mg PO DAILY loratadine 10 mg tablet 10 mg PO DAILY cholecalciferol (vitamin D3) [Vitamin D3] 125 mcg (5,000 unit) tablet 125 mcg PO DAILY lisinopril 40 mg tablet 20 mg PO DAILY Qty: 30 0RF Print Language: Kenyan
[2024-01-13 13:42] LABS: Alanine Aminotransferase 7 U/L (0-31); Alkaline Phosphatase 61 U/L (39-117); Aspartate Amino Transferase 19 U/L (5-31); Bilirubin Direct 0.2 mg/dL (0.0-0.5); Bilirubin Total 0.4 mg/dL (0.0-1.0); Lipase 16 U/L (8-78)
[2024-01-13 14:33] LABS: D Dimer High Sensitivity 754 NG/ML
[2024-01-13 16:21] VITALS: BP 127/65; PULSE 74; RESP 16; TEMP 36.6; O2SAT 99
[2024-01-13 18:22] VITALS: BP 127/65; PULSE 74; RESP 16; TEMP 36.6; O2SAT 99
== END 2024-01-13 18:23 | disposition home or self-care (01) ==
PROVIDERS: Emergency Provider Emergency Medicine
DX: R07.89 Other chest pain (principal); M79.89 Other specified soft tissue disorders; R42 Dizziness and giddiness; I10 Essential (primary) hypertension; F39 Unspecified mood [affective] disorder; E78.2 Mixed hyperlipidemia; Z79.899 Other long term (current) drug therapy
CPT/HCPCS: 36415; 71046; 80048; 80076; 83690; 84484; 85025; 85379; 93005; 93971; 99284

== ENCOUNTER → 2024-01-13 11:01 | Outpatient (BNV) | payer OTHER, SELFPAY | PROVIDERS: Emergency Provider Emergency Medicine; Visit Provider Internal Medicine Cardiovascular Disease | DX: R07.9 Chest pain, unspecified (principal) | CPT/HCPCS: 93010 ==

== ENCOUNTER 2024-02-17 09:52 | Outpatient (RCR) | payer OTHER, SELFPAY | END 2024-02-24 15:41 | disposition home or self-care (01) | LOC: HO.PT 09:52 | PROVIDERS: PCP Nurse Practitioner Family; Visit Provider Student in an Organized Health Care Education/Training Program | DX: M12.9 Arthropathy, unspecified (principal); R26.81 Unsteadiness on feet | CPT/HCPCS: 97162 ==

== ENCOUNTER 2024-02-26 13:29 | Observation (INO) | payer OTHER, SELFPAY ==
--- NOTE | ~2024-02-26 | CT_ITS ---
EXAMINATION: CT HEAD WITHOUT CONTRAST CTA NECK WITH CONTRAST (STROKE) CTA BRAIN WITH CONTRAST (STROKE) CLINICAL INFORMATION: Suspect acute stroke. Assess for major vessel occlusion. Please call report. COMPARISON: None available. TECHNIQUE: CTA of the head and neck was performed in the axial plane from the mediastinum to the skull vertex using 70 mL Omnipaque 350 intravenous contrast. Additional reformatted multiplanar images including maximum intensity projection MIP images are generated on the CT workstation. This CT examination was performed using dose optimization techniques as appropriate, variously including the following: *Automated exposure control *Adjustment of mA and/or kV according to patient size (this includes techniques or standardized protocols for targeted exams where dose is matched to indication/reason for exam; i.e. extremities or head) *Use of iterative reconstruction technique DLP: 1500 mGy-cm FINDINGS: The degree of stenosis determined by criteria similar to NASCET. BRAIN: No acute intracranial hemorrhage or infarct. The robin-white matter differentiation is preserved. No midline shift or hydrocephalus. No acute extra-axial fluid collections. No acute osseous abnormality. No orbital pathology. The paranasal sinuses are clear. Left mastoid effusion. Atherosclerotic calcifications of the bilateral carotid siphons. CTA NECK: Three-vessel aortic arch. The innominate and bilateral subclavian arteries are patent. The origins and cervical segments of the common carotid arteries as well as the common carotid artery bifurcations are patent bilaterally. The cervical segments of the internal carotid arteries are also patent bilaterally. The origins and cervical segments of the vertebral arteries are patent bilaterally. No hemodynamically significant stenosis, dissection, or aneurysm. The visualized branches of the external carotid arteries are unremarkable. CTA HEAD: Mild to moderate atherosclerotic calcifications of the bilateral carotid siphons. Anterior circulation: The petrous, cavernous, and supraclinoid segments of the internal carotid arteries are patent bilaterally. The major branches of the anterior and middle cerebral arteries as well as anterior communicating artery complex are patent. No large vessel occlusion, saccular aneurysm, or dissection. Posterior circulation: The intracranial vertebral arteries are patent bilaterally. The basilar artery is normal in course and caliber. The posterior cerebral and superior cerebellar arteries arise normally from the basilar summit. No aneurysm. On delayed imaging, the venous structures demonstrate normal contrast opacification. No filling defect. No abnormal intracranial enhancement. Soft tissues: No suspicious neck mass or cervical adenopathy. Lungs: Clear. Bones: No acute osseous abnormality. No lytic or blastic osseous lesions. Degenerative changes of the visualized spine. CT/CT head for STROKE IMPRESSION: -CT head demonstrates no acute intracranial hemorrhage or infarct. -CTA head demonstrates no large vessel occlusion, saccular aneurysm, or dissection. The above findings were communicated to AngBalbina marroquin MD on 02/26/2024 at 4:00 PM. -CTA neck demonstrates no hemodynamically significant stenosis, dissection, or aneurysm. Electronically signed by: Veronique Soni MD 02/26/2024 04:24 PM [facility]
--- NOTE | ~2024-02-26 | CT_ITS ---
EXAMINATION: CT HEAD WITHOUT CONTRAST CTA NECK WITH CONTRAST (STROKE) CTA BRAIN WITH CONTRAST (STROKE) CLINICAL INFORMATION: Suspect acute stroke. Assess for major vessel occlusion. Please call report. COMPARISON: None available. TECHNIQUE: CTA of the head and neck was performed in the axial plane from the mediastinum to the skull vertex using 70 mL Omnipaque 350 intravenous contrast. Additional reformatted multiplanar images including maximum intensity projection MIP images are generated on the CT workstation. This CT examination was performed using dose optimization techniques as appropriate, variously including the following: *Automated exposure control *Adjustment of mA and/or kV according to patient size (this includes techniques or standardized protocols for targeted exams where dose is matched to indication/reason for exam; i.e. extremities or head) *Use of iterative reconstruction technique DLP: 1500 mGy-cm FINDINGS: The degree of stenosis determined by criteria similar to NASCET. BRAIN: No acute intracranial hemorrhage or infarct. The robin-white matter differentiation is preserved. No midline shift or hydrocephalus. No acute extra-axial fluid collections. No acute osseous abnormality. No orbital pathology. The paranasal sinuses are clear. Left mastoid effusion. Atherosclerotic calcifications of the bilateral carotid siphons. CTA NECK: Three-vessel aortic arch. The innominate and bilateral subclavian arteries are patent. The origins and cervical segments of the common carotid arteries as well as the common carotid artery bifurcations are patent bilaterally. The cervical segments of the internal carotid arteries are also patent bilaterally. The origins and cervical segments of the vertebral arteries are patent bilaterally. No hemodynamically significant stenosis, dissection, or aneurysm. The visualized branches of the external carotid arteries are unremarkable. CTA HEAD: Mild to moderate atherosclerotic calcifications of the bilateral carotid siphons. Anterior circulation: The petrous, cavernous, and supraclinoid segments of the internal carotid arteries are patent bilaterally. The major branches of the anterior and middle cerebral arteries as well as anterior communicating artery complex are patent. No large vessel occlusion, saccular aneurysm, or dissection. Posterior circulation: The intracranial vertebral arteries are patent bilaterally. The basilar artery is normal in course and caliber. The posterior cerebral and superior cerebellar arteries arise normally from the basilar summit. No aneurysm. On delayed imaging, the venous structures demonstrate normal contrast opacification. No filling defect. No abnormal intracranial enhancement. Soft tissues: No suspicious neck mass or cervical adenopathy. Lungs: Clear. Bones: No acute osseous abnormality. No lytic or blastic osseous lesions. Degenerative changes of the visualized spine. CT/CT angio head neck STROKE IMPRESSION: -CT head demonstrates no acute intracranial hemorrhage or infarct. -CTA head demonstrates no large vessel occlusion, saccular aneurysm, or dissection. The above findings were communicated to Ang, MD Balbina on 02/26/2024 at 4:00 PM. -CTA neck demonstrates no hemodynamically significant stenosis, dissection, or aneurysm. Electronically signed by: Veronique Soni MD 02/26/2024 04:24 PM [facility]
--- NOTE | ~2024-02-26 | MR_ITS ---
EXAMINATION: MR BRAIN WITHOUT CONTRAST CLINICAL INFORMATION: Right paresthesia COMPARISON: None available. TECHNIQUE: MRI of the brain was obtained using routine sequences without contrast. FINDINGS: No acute intracranial hemorrhage or infarct. Scattered periventricular and deep white matter T2/FLAIR hyperintensities, nonspecific however commonly seen with small vessel ischemic disease. No midline shift or hydrocephalus. No acute extra-axial fluid collections. The osseous structures are unremarkable. Partially empty sella. The pineal gland and remaining midline structures are unremarkable. No orbital pathology. The paranasal sinuses are clear. Complete opacification of the left middle ear and mastoid air cells. Trace right mastoid effusion. MR/MR head/brain wo con IMPRESSION: -No acute intracranial abnormalities. -Chronic microangiopathy. -Left middle ear and mastoid effusions. Electronically signed by: Veronique Soni MD 02/26/2024 06:39 PM [facility]
--- NOTE | 2024-02-26 13:40 | ECG_ITS ---
Test Reason : CHEST PAIN Blood Pressure : / mmHG Vent. Rate : 084 BPM Atrial Rate : 084 BPM P-R Int : 130 ms QRS Dur : 082 ms QT Int : 382 ms P-R-T Axes : 048 006 020 degrees QTc Int : 451 ms Normal sinus rhythm Normal ECG When compared with ECG of 13-JAN-2024 11:01, No significant change was found Referred By: Generic ED Physician Electronically Signed By:BRADY GENAO
[2024-02-26 13:44] VITALS: BP 108/92; BP 130/60; PULSE 83; PULSE 86; RESP 16; TEMP 36.8; O2SAT 95; O2SAT 96; BMI 63.2
[2024-02-26 14:20] LABS: MANUAL DIFF FLAG NO
--- NOTE | 2024-02-26 14:20 | PC.NURSE ---
pt is alert and oriented, skin appropriate for ethnicity, respirations even and unlabored, dr torres and spanish medical interpreter are at bedside, pt is reporting that last night at 2300 started with the entire right sided numbness/tingling/heaviness, no facial droop, speech clear, right arm/leg weakness and having some right hand dexterity difficulty-pointing to the finger to the nose, pt also is reporting right sided chest pain that started today at 1100, vs stable and ns on the monitor, pt does have hx of previous stroke and is on Plavix
[2024-02-26 14:23] LABS: Basophils Absolute Auto 0.1 X10*3/uL (0.0-0.2); Basophils Percent Auto 0.5 % (0-2); Eosinophils Absolute Auto 0.1 X10*3/uL (0.0-0.4); Eosinophils Percent Auto 0.8 % (0-4); Hematocrit 36.9 % (37.0-47.0); Hemoglobin 12.4 g/dl (12.0-16.0); Imm Gran Abs Auto 0.12 X10*3/uL (0.00-0.03); Imm Gran Pct Auto 1.1 % (0.0-0.4); Lymphocytes Absolute Auto 2.1 X10*3/uL (1.2-4.9); Lymphocytes Percent Auto 19.5 % (20-40); Mean Corpuscular HGB Conc 33.6 g/dl (31.0-35.0); Mean Corpuscular Hemoglobin 29.5 pg (27.0-33.0); Mean Corpuscular Volume 87.6 fL (80.0-98.0); Mean Platelet Volume 9.6 fL (9.4-12.3); Monocytes Absolute Auto 0.8 X10*3/uL (0.1-1.2); Monocytes Percent Auto 6.9 % (2-11); Neutrophils Absolute Auto 7.8 x10*3/uL (2.0-8.3); Neutrophils Percent Auto 71.2 % (45-73); Platelet Count 342 X10*3/uL (160-400); Red Blood Count 4.21 X10*6/uL (4.20-5.50); Red Cell Distribution Width 12.7 % (11.0-16.0)
[2024-02-26 14:25] VITALS: BP 134/62; PULSE 82; RESP 15; TEMP 36.7; O2SAT 97
[2024-02-26 14:26] LABS: Glucose, Whole Blood 90 mg/dL (60-115)
--- NOTE | 2024-02-26 14:32 | ED_ITS ---
HPI - Chest Pain General Chief Complaint: Chest Pain Stated Complaint: CP X2H PER EMS Time Seen by Provider: 02/26/24 13:43 History of Present Illness HPI narrative: Patient is a 63-year-old female presented today with having tingling sensation to her right side starting 23:00 last night. Feels weak on that side. Also having tightness to the chest starting at 11:00. No fever no chills. No history of diabetes. Positive history of hypertension history of hypercholesterolemia. Had a stroke about 2 years ago with presented with right-sided weakness at that time. Patient currently is on Plavix. Denies any cardiac stents. No history of [place]. patient from home. No coughing or congestion or upper respiratory symptoms. No pain on urination. Related Data Home Medications ?Medication ?Instructions ?Recorded ?Confirmed atorvastatin 40 mg tablet 40 mg PO DAILY 08/06/22 08/06/22 cholecalciferol (vitamin D3) 125 125 mcg PO DAILY 08/06/22 08/06/22 mcg (5,000 unit) tablet (Vitamin D3) clopidogrel 75 mg tablet 75 mg PO DAILY 08/06/22 08/06/22 loratadine 10 mg tablet 10 mg PO DAILY 08/06/22 08/06/22 meclizine 12.5 mg tablet 12.5 mg PO TID 08/06/22 08/06/22 omeprazole 20 mg capsule,delayed 20 mg PO DAILY 08/06/22 08/06/22 release Previous Rx's ?Medication ?Instructions ?Recorded lisinopril 40 mg tablet 20 mg (1/2 x 40 mg) PO DAILY #30 08/08/22 tabs methocarbamol 500 mg tablet 500 mg PO TID PRN pain #15 tabs 10/29/23 Allergies Allergy/AdvReac Type Severity Reaction Status Date / Time aspirin [Aspirin] Allergy Mild SWELLING, Verified 01/13/24 11:10 facial swelling, redness Sulfa (Sulfonamide Allergy Mild SWELLING, Verified 01/13/24 11:10 Antibiotics) facial [Sulfa (Sulfonamides)] swelling, redness shrimp Allergy Unknown Verified 02/26/24 13:50 Aspirin Allergy Unknown facial Uncoded 01/13/24 11:10 swolling sulfa Allergy Unknown facial Uncoded 01/13/24 11:10 swolling Review of Systems 2 Review of Systems: Positive right-sided tingling positive chest pain PMFSH Past Medical History Attestation statement: The following information was validated with the patient. Source: unable to obtain Medical History Mood disorder Mixed hyperlipidemia Essential hypertension UTI (urinary tract infection) CVA (cerebral vascular accident) Social History Social History Household Members: None Housing: House Patient Tobacco Use Status: Never used Tobacco Smoked in Last 30 Days: No Use of substances other than those prescribed or required for medical reasons: No Advance Directives: No Advance Directives Information Provided: Yes Do you have a plan to hurt others: No Plan service: No Current occupational status: disabled Physical Exam 2 Vital Signs: Vital Signs: Last Vital Signs Temp 98.1 F 02/26/24 14:25 Pulse 82 02/26/24 14:25 Resp 15 02/26/24 14:25 BP 134/62 02/26/24 14:25 Pulse Ox 97 02/26/24 14:25 O2 Del Method Room Air 02/26/24 14:25 BMI result Body Mass Index 63.2 Appearance: Alert. Oriented X3. No acute distress. Eyes: Pupils equal, round and reactive to light. ENT: Pharynx normal. Neck: Normal inspection. Neck supple. No lymph nodes noted. No crepitus CVS: Normal heart rate and rhythm. Pulses normal. Normal S1 and S2 Respiratory: No respiratory distress. Breath sounds normal. No Wheezing. No rales Abdomen: Soft and nontender. No rigidity. No distention. good BS x4 Skin: Skin warm and dry. Normal skin color. Normal skin turgor. Extremities: No lower extremity edema. Neurovascular intact to all extremities. No Lacerations. No Rash Neuro: Oriented X 3. [id number] off on the right side. Rapid alternating movement is equal on both sides. Patient's strength 4/5 on the right both upper and lower extremity. Positive subjective right side tingling. Patient's face seems to be symmetrical. Vision grossly intact. Speech normal NIH Stroke Scale Internal: Initial- Upon Arrival Time: 14:43 Level of Consciousness: Alert Level of Consciousness Questions: Answers both questions correctly Level of Consciousness Commands: Performs both tasks correctly Best Gaze: Normal Visual: No visual loss Facial Palsy: Normal Motor Arm (Right): Drift Motor Arm (Left): No drift Motor Leg (Right): Drift Motor Leg (Left): No drift Limb Ataxia: Absent Sensory: Normal Best Language: No aphasia Dysarthia: Normal Extinction and Inattention: No abnormality Score: 2 Medications Administered Discontinued Medications Generic Name Dose Route Start Last Admin Trade Name Ney PRN Reason Stop Dose Admin Iohexol 100 ml 02/26/24 15:11 02/26/24 15:12 Iohexol 350 Mg/Ml 100 Ml Infus..Btl IV 02/26/24 15:12 70 ml ONCE ONE Administration Medical Decision Making Medical Decision Making [facility] Narrative: patient's sugar was 90. No evidence for hypoglycemia. Had nonspecific chest pain starting 11:00 had tingling sensation weakness on the right side starting 23:00 last night. My interpretation of patient's EKG showed a sinus rhythm heart rate is 80 IA QRS QTC within normal limits there is no acute ST segment elevation noted. Patient symptoms beyond the 4.5 hour window for tPA. Nevertheless a CT head CTA was done To look for large vessel occlusion. Patient's EKG was done. No gross arrhythmia noted. Electrolytes were ordered. Urine ordered for possible infection. Cardiac enzyme ordered as patient had chest pain. I discussed the CT head and CTA head and neck with radiology. No bleed. No large vessel occlusion. Patient complaining of right-sided numbness. NIH stroke scale was 2. Nevertheless it is new. Will admit for further evaluation. Patient's troponin is negative. Will get a 2nd set. She does have some risk factor heart score is a 3. Currently in stable condition. The hospitalist team was contacted. Patient to be admitted. Differential Diagnosis Differential Diagnoses: The differential diagnosis associated with the presentation includes ACS, pneumonia, stroke Admission/Observation Consideration of admission/observation: Escalation of care including admission/observation considered stroke, pneumonia, chest pain, ACS Consult Healthcare Provider Management of the patient was discussed with: Hospitalist Lab Data [facility] Lab Attestation statement: I reviewed the patient's lab results. 02/26/24 14:17 02/26/24 14:17 Labs: Lab Results 02/26/24 02/26/24 02/26/24 Range/Units 14:17 14:22 14:49 WBC 11.0 H (4.8-10.8) X10*3/uL RBC 4.21 (4.20-5.50) X10*6/uL Hgb 12.4 (12.0-16.0) g/dl Hct 36.9 L (37.0-47.0) % MCV 87.6 (80.0-98.0) fL MCH 29.5 (27.0-33.0) pg MCHC 33.6 (31.0-35.0) g/dl RDW 12.7 (11.0-16.0) % Plt Count 342 (160-400) X10*3/uL MPV 9.6 (9.4-12.3) fL Immature Gran % (Auto) 1.1 H (0.0-0.4) % Neut % (Auto) 71.2 (45-73) % Lymph % (Auto) 19.5 L (20-40) % [place] % (Auto) 6.9 (2-11) % Eos % (Auto) 0.8 (0-4) % Baso % (Auto) 0.5 (0-2) % Lymph # (Auto) 2.1 (1.2-4.9) X10*3/uL [place] # (Auto) 0.8 (0.1-1.2) X10*3/uL Eos # (Auto) 0.1 (0.0-0.4) X10*3/uL Baso # (Auto) 0.1 (0.0-0.2) X10*3/uL Abs Immat Gran (auto) 0.12 H (0.00-0.03) X10*3/uL Absolute Neuts (auto) 7.8 (2.0-8.3) x10*3/uL Absolute Nucleated RBC 0.000 (0.0-0.012) X10*3/uL Nucleated RBC % (auto) 0.0 (0.0-0.2) /100WBC PT 11.5 (10.9-12.4) SEC INR 1.0 (0.9-1.1) APTT 30.0 (26.0-36.8) SEC Sodium 139 (135-145) mmol/L Potassium 3.8 (3.3-5.1) mmol/L Chloride 103 (96-108) mmol/L Carbon Dioxide 29 (22-29) mmol/L Anion Gap 11 L (12-20) BUN 30 H (9-16) mg/dL Creatinine 0.75 (0.5-1.4) mg/dL Estim Creat Clear Calc 89.8 Estimated GFR > 60 POC Glucose 90 (60-115) mg/dL Random Glucose 99 (60-115) mg/dL Calcium 9.4 D (8.4-10.2) mg/dL Total Bilirubin 0.4 (0.0-1.0) mg/dL AST 22 (5-31) U/L ALT 10 (0-31) U/L Alkaline Phosphatase 55 (39-117) U/L Troponin I High Sens < 2.7 (<3.5-17.0) ng/L Total Protein 7.7 (6.5-8.0) g/dL Albumin 3.8 (3.5-5.0) g/dL Triglycerides 133 (<150) mg/dL Cholesterol 172 (<200) mg/dL LDL Cholesterol, Calc 107 H (<100) mg/dL HDL Cholesterol 39 L (>40) mg/dL Urine Color Yellow Urine Appearance Clear Urine pH 8.0 (5.0-9.0) Ur Specific Anthony 1.010 (1.005-1.025) Urine Protein Negative (Neg-Trace) mg/dL Urine Glucose (UA) Negative (Negative) mg/dL Urine Ketones Negative (Negative) mg/dL Urine Blood Negative (Negative) Urine Nitrite Negative (Negative) Ur Leukocyte Esterase Trace H (Negative) Urine RBC 0-2 (0-2) /HPF Urine WBC 0-5 (0-5) /HPF Ur Squamous Epith Cells 3-5 (0-2) /HPF Urine Bacteria None Seen (None Seen) Hyaline Casts 0-2 (0-2) /LPF Independent Interpretation I performed an independent interpretation of an: EKG ( patient's heart rate is 80 IA QRS QTC within normal limits is no acute ST segment elevation.) and CT Scan ( CT head was grossly negative for any acute evidence of bleeding) Radiology Impression Discussion of test interpretation with radiology: I discussed test interpretation with the radiologist External Record Review External record reviewed: Inpatient record Chronic Conditions Patient?s care impacted by: Diabetes and Hypertension Social Determinants Patient?s care significantly limited by Social Determinants of Health including: Low income and Problems related to primary support group Discharge Plan Discharge Clinical Impression: Right sided weakness, Chest pain Patient Disposition: Admitted As Inpatient Prescriptions: No Action methocarbamol 500 mg tablet 500 mg PO TID PRN (Reason: pain) Qty: 15 0RF atorvastatin 40 mg tablet 40 mg PO DAILY meclizine 12.5 mg tablet 12.5 mg PO TID clopidogrel 75 mg tablet 75 mg PO DAILY omeprazole 20 mg capsule,delayed release(DR/EC) 20 mg PO DAILY loratadine 10 mg tablet 10 mg PO DAILY cholecalciferol (vitamin D3) [Vitamin D3] 125 mcg (5,000 unit) tablet 125 mcg PO DAILY lisinopril 40 mg tablet 20 mg PO DAILY Qty: 30 0RF Print Language: Persian
[2024-02-26 14:39] LABS: Alanine Aminotransferase 10 U/L (0-31); Albumin Level 3.8 g/dL (3.5-5.0); Alkaline Phosphatase 55 U/L (39-117); Anion Gap 11 (12-20); Aspartate Amino Transferase 22 U/L (5-31); Bilirubin Total 0.4 mg/dL (0.0-1.0); Blood Urea Nitrogen 30 mg/dL (9-16); Calcium 9.4 mg/dL (8.4-10.2); Carbon Dioxide 29 mmol/L (22-29); Chloride 103 mmol/L (96-108); Creatinine Clr Calc Pharmacy 89.8; Estimated Glomerular Filt Rate > 60; Glucose Random 99 mg/dL (60-115); Potassium 3.8 mmol/L (3.3-5.1); Sodium 139 mmol/L (135-145); Total Protein 7.7 g/dL (6.5-8.0)
[2024-02-26 14:47] LABS: Troponin-I High Sensitivity < 2.7 ng/L (<3.5-17.0)
[2024-02-26 15:10] LABS: Cholesterol 172 mg/dL (<200); HDL Cholesterol 39 mg/dL (>40); LDL Cholesterol Calculated 107 mg/dL (<100); Triglycerides 133 mg/dL (<150)
[2024-02-26 15:11] LABS: Prothrombin Time 11.5 SEC (10.9-12.4)
[2024-02-26] MEDS: iohexoL 350 MG/ML 100 ML INFUS..BTL IV (15:12)
[2024-02-26 15:21] LABS: Appearance Urine Clear; Color Urine Yellow; Glucose Urine UA Negative (Negative); Leukocyte Esterase Urine Trace (Negative); Nitrite Urine Negative (Negative); UMIC TRIGGER UACC YES; Urine Blood Negative (Negative); Urine Ketones Negative (Negative); Urine Protein Negative (Neg-Trace)
[2024-02-26 15:26] LABS: Bacteria Urine None Seen (None Seen); Hyaline Casts Urine 0-2 /LPF (0-2); RBC Urine 0-2 /HPF (0-2); WBC Urine 0-5 /HPF (0-5)
[2024-02-26 16:26] LABS: Stroke Lab Use COMPLETE
--- NOTE | 2024-02-26 16:47 | P.HPHOSP_ITS ---
History of Present Illness Date of Service: 02/26/24 Chief Complaint: right sided parasthesias 63F PMH cva with mild right hemiparesis, morbid obesity, hypertension, presented with right sided pain and paresthesias. Patient states symptoms began at 11:00 on day of presentation. And are ongoing. Also feels heaviness on the right side. Worse than her baseline. Also noted upper sternal chest pressure radiating to the left without shortness of breath or diaphoresis, constant, no exacerbating or relieving symptoms. In ED EKG unremarkable, troponin negative, CTA head and neck negative. Review of Systems 2 Review of Systems: Yes all other systems are reviewed and are negative [facility] Medical History Mood disorder Mixed hyperlipidemia Essential hypertension UTI (urinary tract infection) CVA (cerebral vascular accident) Social History Household Members: None Housing: House Patient Tobacco Use Status: Never used Tobacco Smoked in Last 30 Days: No Use of substances other than those prescribed or required for medical reasons: No Advance Directives: No Advance Directives Information Provided: Yes Do you have a plan to hurt others: No Plan service: No Current occupational status: disabled Meds Allergies Allergy/AdvReac Type Severity Reaction Status Date / Time aspirin [Aspirin] Allergy Mild SWELLING, Verified 01/13/24 11:10 facial swelling, redness Sulfa (Sulfonamide Allergy Mild SWELLING, Verified 01/13/24 11:10 Antibiotics) facial [Sulfa (Sulfonamides)] swelling, redness shrimp Allergy Unknown Verified 02/26/24 13:50 Aspirin Allergy Unknown facial Uncoded 01/13/24 11:10 swolling sulfa Allergy Unknown facial Uncoded 01/13/24 11:10 swolling Active Medications: Current Medications Acetaminophen (Acetaminophen 325 Mg Tablet) 650 mg PO Q6H PRN PRN Reason: Pain, Mild (Pain Scale 1-3), fever or headache Calcium Carbonate (Calcium Carbonate 750 Mg Tab.Chew) 750 mg PO Q4H PRN PRN Reason: Heartburn Enoxaparin Sodium (Enoxaparin Sodium 40 Mg/0.4 Ml Syringe) 40 mg SUBCUT Q24H LONG Magnesium Hydroxide (Milk Of Magnesia 30 Ml Oral.Susp) 30 ml PO DAILY PRN PRN Reason: Constipation Melatonin (Melatonin 3 Mg Tablet) 6 mg PO BEDTIME PRN PRN Reason: Insomnia Sodium Chloride (0.9 % Sodium Chloride Flush 3 Ml Syringe) [facility] Medications ?Medication ?Instructions ?Recorded ?Confirmed ?Last Taken ?Type atorvastatin 40 mg tablet 40 mg PO BEDTIME 08/06/22 02/26/24 02/25/24 History cholecalciferol (vitamin D3) 125 125 mcg PO DAILY 08/06/22 02/26/24 02/26/24 History mcg (5,000 unit) tablet (Vitamin D3) clopidogrel 75 mg tablet 75 mg PO DAILY 08/06/22 02/26/24 02/26/24 History meclizine 12.5 mg tablet 12.5 mg PO TID 08/06/22 02/26/24 02/26/24 History omeprazole 20 mg capsule,delayed 20 mg PO DAILY@0630 08/06/22 02/26/24 02/26/24 History release acetaminophen 500 mg tablet 500 mg PO Q6H PRN Pain 02/26/24 02/26/24 Unknown History chlorthalidone 25 mg tablet 25 mg PO DAILY 02/26/24 02/26/24 02/26/24 History verapamil 240 mg tablet,extended 240 mg PO BEDTIME 02/26/24 02/26/24 02/25/24 History release Physical Exam 2 Vital Signs and Narrative: Vital Signs: Last Vital Signs Temp 98.1 F 02/26/24 14:25 Pulse 82 02/26/24 14:25 Resp 15 02/26/24 14:25 BP 134/62 02/26/24 14:25 Pulse Ox 97 02/26/24 14:25 O2 Del Method Room Air 02/26/24 14:25 BMI result Body Mass Index 63.2 General: AO X 3, no acute distress Resp: CTA bilateral, no accessory muscles used CVS: S1,S2,RRR, 2+ edema GI: soft, non tender, non distended Neuro: right mild hemiparesis, alert Psych: appropriate affect, appropriate insight Results Labs 02/26/24 14:17 02/26/24 14:17 Labs: Laboratory Results - last 24 hr 02/26/24 02/26/24 02/26/24 14:17 14:22 14:48 MCV 87.6 MCH 29.5 MCHC 33.6 RDW 12.7 Plt Count 342 MPV 9.6 Immature Gran % (Auto) 1.1 H Neut % (Auto) 71.2 Lymph % (Auto) 19.5 L [place] % (Auto) 6.9 Eos % (Auto) 0.8 Baso % (Auto) 0.5 Lymph # (Auto) 2.1 [place] # (Auto) 0.8 Eos # (Auto) 0.1 Baso # (Auto) 0.1 Abs Immat Gran (auto) 0.12 H Absolute Neuts (auto) 7.8 Absolute Nucleated RBC 0.000 Nucleated RBC % (auto) 0.0 PT Whole Blood PT 12.0 INR Whole Blood INR 1.0 APTT Anion Gap 11 L Estim Creat Clear Calc 89.8 Estimated GFR > 60 POC Glucose 90 Random Glucose 99 Calcium 9.4 D Total Bilirubin 0.4 AST 22 ALT 10 Alkaline Phosphatase 55 Troponin I High Sens < 2.7 Total Protein 7.7 Albumin 3.8 Triglycerides Cholesterol LDL Cholesterol, Calc HDL Cholesterol Urine Color Urine Appearance Urine pH Ur Specific [place] Urine Protein Urine Glucose (UA) Urine Ketones Urine Blood Urine Nitrite Ur Leukocyte Esterase Urine RBC Urine WBC Ur Squamous Epith Cells Urine Bacteria Hyaline Casts 02/26/24 14:49 MCV MCH MCHC RDW Plt Count MPV Immature Gran % (Auto) Neut % (Auto) Lymph % (Auto) [place] % (Auto) Eos % (Auto) Baso % (Auto) Lymph # (Auto) [place] # (Auto) Eos # (Auto) Baso # (Auto) Abs Immat Gran (auto) Absolute Neuts (auto) Absolute Nucleated RBC Nucleated RBC % (auto) PT 11.5 Whole Blood PT INR 1.0 Whole Blood INR APTT 30.0 Anion Gap Estim Creat Clear Calc Estimated GFR POC Glucose Random Glucose Calcium Total Bilirubin AST ALT Alkaline Phosphatase Troponin I High Sens Total Protein Albumin Triglycerides 133 Cholesterol 172 LDL Cholesterol, Calc 107 H HDL Cholesterol 39 L Urine Color Yellow Urine Appearance Clear Urine pH 8.0 Ur Specific [place] 1.010 Urine Protein Negative Urine Glucose (UA) Negative Urine Ketones Negative Urine Blood Negative Urine Nitrite Negative Ur Leukocyte Esterase Trace H Urine RBC 0-2 Urine WBC 0-5 Ur Squamous Epith Cells 3-5 Urine Bacteria None Seen Hyaline Casts 0-2 Imaging Radiologist's Impressions: Impressions Head CT 02/26/24 15:05 IMPRESSION: -CT head demonstrates no acute intracranial hemorrhage or infarct. -CTA head demonstrates no large vessel occlusion, saccular aneurysm, or dissection. The above findings were communicated to Balbina Ang MD on 02/26/2024 at 4:00 PM. -CTA neck demonstrates no hemodynamically significant stenosis, dissection, or aneurysm. Electronically signed by: Veronique Soni MD 02/26/2024 04:24 PM EST RP Head/Neck CTA 02/26/24 15:10 IMPRESSION: -CT head demonstrates no acute intracranial hemorrhage or infarct. -CTA head demonstrates no large vessel occlusion, saccular aneurysm, or dissection. The above findings were communicated to Balbina Ang MD on 02/26/2024 at 4:00 PM. -CTA neck demonstrates no hemodynamically significant stenosis, dissection, or aneurysm. Electronically signed by: Veronique Soni MD 02/26/2024 04:24 PM EST RP Assessment and Plan (1) Right sided weakness: Status: Acute Plan 63F PMH cva with mild right hemiparesis, morbid obesity, hypertension, presented with right sided pain and paresthesias Right-sided paresthesias Rule out TIA Plavix, statin Check MRI, neuro eval Chest pain Follow up troponin Morbid obesity Weight loss recommended Hypertension Relatively hypotensive will hold meds DVT prophylaxis Lovenox Full Code Quality Stroke Does the patient have a stroke diagnosis?: No VTE Prior VTE?: No VTE Risk Level:: Medical - moderate - high VTE Device Contraindication: Treatment Not Indicated VTE Drug Contraindication: N/A - Med Ordered
[2024-02-26 17:16] VITALS: BP 111/52; PULSE 76; RESP 20; TEMP 36.6; O2SAT 97
--- NOTE | 2024-02-26 17:22 | PHA.MEDREC ---
Addendum entered by Reagan Mathews 02/26/24 17:53: reviewed Original Note: Pharmacy Consult ? Medication Reconciliation Pharmacy has completed the medication reconciliation. Spoke with patient with help of regional climate change analyst and she was able to confirm her medications. She confirmed she took her morning medications this morning.
[2024-02-26] MEDS: Enoxaparin Sodium 40 MG/0.4 ML SYRINGE SUBCUT (17:23)
[2024-02-26 17:26] LABS: Troponin-I High Sensitivity 6.2 ng/L (<3.5-17.0)
[2024-02-26 21:00] VITALS: BP 134/62; PULSE 74; RESP 18; TEMP 36.7; O2SAT 98
[2024-02-26 21:41] LABS: Glucose, Whole Blood 109 mg/dL (60-115)
[2024-02-26] MEDS: Atorvastatin Calcium 40 MG TABLET PO (21:56)
[2024-02-26] MEDS: Meclizine HCl 12.5 MG TABLET PO (21:56)
[2024-02-26 22:00] VITALS: BMI 62.2
[2024-02-26 23:28] LABS: Troponin-I High Sensitivity 4.4 ng/L (<3.5-17.0)
[2024-02-27] VITALS: BP 129/88; PULSE 77; RESP 18; TEMP 36.4; O2SAT 96
[2024-02-27] MEDS: Acetaminophen 325 MG TABLET 650 MG PO (00:07)
[2024-02-27] MEDS: 0.9 % Sodium Chloride Flush 3 ML SYRINGE IVFLUSH ×2 (00:08→08:40)
[2024-02-27 03:45] VITALS: BP 109/58; PULSE 79; RESP 18; TEMP 36.6; O2SAT 96
[2024-02-27 07:20] LABS: Hematocrit 34.6 % (37.0-47.0); Hemoglobin 11.8 g/dl (12.0-16.0); Mean Corpuscular HGB Conc 34.1 g/dl (31.0-35.0); Mean Corpuscular Hemoglobin 29.6 pg (27.0-33.0); Mean Corpuscular Volume 86.7 fL (80.0-98.0); Mean Platelet Volume 9.5 fL (9.4-12.3); Platelet Count 318 X10*3/uL (160-400); Red Blood Count 3.99 X10*6/uL (4.20-5.50); Red Cell Distribution Width 12.9 % (11.0-16.0); White Blood Count 8.7 X10*3/uL (4.8-10.8)
[2024-02-27 07:28] LABS: Anion Gap 15 (12-20); Blood Urea Nitrogen 24 mg/dL (9-16); Calcium 9.8 mg/dL (8.4-10.2); Carbon Dioxide 27 mmol/L (22-29); Chloride 101 mmol/L (96-108); Creatinine Clr Calc Pharmacy 80.2; Estimated Glomerular Filt Rate > 60; Glucose Random 99 mg/dL (60-115); Potassium 3.6 mmol/L (3.3-5.1); Sodium 139 mmol/L (135-145)
[2024-02-27 07:51] VITALS: BP 138/67; PULSE 70; RESP 17; TEMP 36.3; O2SAT 98
[2024-02-27 08:20] VITALS: PULSE 74
[2024-02-27] MEDS: Meclizine HCl 12.5 MG TABLET PO (08:40)
[2024-02-27] MEDS: Clopidogrel Bisulfate 75 MG TABLET PO (08:40)
--- NOTE | 2024-02-27 10:17 | P.CNNE_ITS ---
History of Present Illness Data of Consult Service Date: 02/27/24 Primary Care Provider: Unknown Physician HPI Reason for consult: Paresthesia 63 years old woman with obesity and hypertension came to hospital with right- sided numbness and tingling. She said that this started to 3 days prior to coming to hospital but yesterday got worse and she came to hospital. She was complaining of numbness and tingling starting in her head area then going down to involve her whole right side. She was also having headache around that time. This morning she was feeling better with resolution of headache and significant reduction of symptoms. Her brain imaging has not reveal any significant abnormality. Review of Systems 2 Review of Systems: No recent cold or flu-like PMFSH Past Medical History Medical History Mood disorder Mixed hyperlipidemia Essential hypertension UTI (urinary tract infection) CVA (cerebral vascular accident) Social History Social History Household Members: Family Housing: Assisted Living Facility Do you presently have visiting nurse or other home services: No Patient Tobacco Use Status: Never used Tobacco Second Hand Smoke Exposure: No service: No Current occupational status: disabled Meds Allergies Allergy/AdvReac Type Severity Reaction Status Date / Time aspirin [Aspirin] Allergy Mild SWELLING, Verified 01/13/24 11:10 facial swelling, redness Sulfa (Sulfonamide Allergy Mild SWELLING, Verified 01/13/24 11:10 Antibiotics) facial [Sulfa (Sulfonamides)] swelling, redness shrimp Allergy Unknown Verified 02/26/24 13:50 Active Medications: Current Medications Acetaminophen (Acetaminophen 325 Mg Tablet) 650 mg PO Q6H PRN PRN Reason: Pain, Mild (Pain Scale 1-3), fever or headache Last Admin: 02/27/24 00:07 Dose: 650 mg Atorvastatin Calcium (Atorvastatin Calcium 40 Mg Tablet) 40 mg PO BEDTIME [facility] Last Admin: 02/26/24 21:56 Dose: 40 mg Calcium Carbonate (Calcium Carbonate 750 Mg Tab.Chew) 750 mg PO Q4H PRN PRN Reason: Heartburn Clopidogrel Bisulfate (Clopidogrel Bisulfate 75 Mg Tablet) 75 mg PO DAILY [facility] Enoxaparin Sodium (Enoxaparin Sodium 40 Mg/0.4 Ml Syringe) 40 mg SUBCUT Q24H LONG Last Admin: 02/26/24 17:23 Dose: 40 mg Lorazepam (Lorazepam 2 Mg/Ml Vial) 1 mg IVPUSH ONCE PRN PRN Reason: mri Magnesium Hydroxide (Milk Of Magnesia 30 Ml Oral.Susp) 30 ml PO DAILY PRN PRN Reason: Constipation Meclizine HCl (Meclizine Hcl 12.5 Mg Tablet) 12.5 mg PO TID [facility] Last Admin: 02/26/24 21:56 Dose: 12.5 mg Melatonin (Melatonin 3 Mg Tablet) 6 mg PO BEDTIME PRN PRN Reason: Insomnia Sodium Chloride (0.9 % Sodium Chloride Flush 3 Ml Syringe) 3 ml IVFLUSH QSHIFT [facility] Last Admin: 02/27/24 00:08 Dose: 3 ml Home Medications ?Medication ?Instructions ?Recorded ?Confirmed ?Last Taken ?Type atorvastatin 40 mg tablet 40 mg PO BEDTIME 08/06/22 02/26/24 02/25/24 History cholecalciferol (vitamin D3) 125 125 mcg PO DAILY 08/06/22 02/26/24 02/26/24 History mcg (5,000 unit) tablet (Vitamin D3) clopidogrel 75 mg tablet 75 mg PO DAILY 08/06/22 02/26/24 02/26/24 History meclizine 12.5 mg tablet 12.5 mg PO TID 08/06/22 02/26/24 02/26/24 History omeprazole 20 mg capsule,delayed 20 mg PO DAILY@0630 08/06/22 02/26/24 02/26/24 History release acetaminophen 500 mg tablet 500 mg PO Q6H PRN Pain 02/26/24 02/26/24 Unknown History chlorthalidone 25 mg tablet 25 mg PO DAILY 02/26/24 02/26/24 02/26/24 History verapamil 240 mg tablet,extended 240 mg PO BEDTIME 02/26/24 02/26/24 02/25/24 History release Physical Exam 2 Vital Signs: Vital Signs: Last Vital Signs Temp 97.4 F 02/27/24 07:51 Pulse 74 02/27/24 08:20 Resp 17 02/27/24 07:51 BP 138/67 02/27/24 07:51 Pulse Ox 98 02/27/24 07:51 O2 Del Method Room Air 02/27/24 07:51 BMI result Body Mass Index 62.2 Neuro: Other: She is alert and awake with normal spontaneity of speech fluency comprehension and affect. Intravenous performed with the help of an japanese interpreter. Face is symmetrical. Visual urbina are full. She moves right side slower the left side. Plantars are flexor. Results Labs 02/27/24 07:01 02/27/24 07:01 Labs: Short CBC 02/26/24 02/27/24 Range/Units 14:17 07:01 WBC 11.0 H 8.7 (4.8-10.8) X10*3/uL Hgb 12.4 11.8 L (12.0-16.0) g/dl Hct 36.9 L 34.6 L (37.0-47.0) % Plt Count 342 318 (160-400) X10*3/uL BMP 02/26/24 02/27/24 14:17 07:01 Sodium 139 139 Potassium 3.8 3.6 Chloride 103 101 Carbon Dioxide 29 27 BUN 30 H 24 H Creatinine 0.75 0.83 Calcium 9.4 D 9.8 Liver Function 02/26/24 Range/Units 14:17 Total Bilirubin 0.4 (0.0-1.0) mg/dL AST 22 (5-31) U/L ALT 10 (0-31) U/L Alkaline Phosphatase 55 (39-117) U/L Albumin 3.8 (3.5-5.0) g/dL Urine 02/26/24 Range/Units 14:49 Urine Color Yellow Urine Appearance Clear Urine pH 8.0 (5.0-9.0) Ur Specific [place] 1.010 (1.005-1.025) Urine Protein Negative (Neg-Trace) mg/dL Urine Glucose (UA) Negative (Negative) mg/dL MRI of brain did not reveal any acute abnormality. Minimal chronic microvascular ischemic changes were noted. CTA did not reveal any vascular lesion. Assessment and Plan (1) Right sided weakness: Status: Acute Migraine equivalent syndrome versus psychosomatic disease. As she was having or describing a headache, the 1st possibility was more likely. Reassurance and education is recommended. At this time symptoms were mostly resolved. Procedures Date of Service Date of Service: 02/27/24
--- NOTE | 2024-02-27 10:28 | MHC.CM.PN ---
[place] 02/27/24, Pt lives with her sister, she has home health services from [facility] of 16 hrs [employer] per week. She does not know the name of her PCP, she will see her for the first time on 03/23/23 at [facility]. For DME, she uses a walker. DCP: home, self care, CM to follow for DC needs.
--- NOTE | 2024-02-27 11:03 | P.DS_ITS ---
DS: Providers Provider Date of Service: 02/27/24 Date of admission: 02/26/24 16:41 Date of discharge: 02/27/24 Primary care physician: Unknown Physician Consults: 02/26/24 16:45 Consult to Neurology Routine Consulting Provider: Dolores Sarah Reason for consultation: right parasthesias DS: Diagnosis Discharge Diagnosis (1) Right sided weakness: Status: Acute DS: Summary Hospital Course Hospital Course: from initial hpi: 63F PMH cva with mild right hemiparesis, morbid obesity, hypertension, presented with right sided pain and paresthesias. Patient states symptoms began at 11:00 on day of presentation. And are ongoing. Also feels heaviness on the right side. Worse than her baseline. Also noted upper sternal chest pressure radiating to the left without shortness of breath or diaphoresis, constant, no exacerbating or relieving symptoms. In ED EKG unremarkable, troponin negative, CTA head and neck negative. hospital course: Patient was admitted for right-sided paresthesias. MRI was negative for acute stroke. Was seen by neuro who felt this was likely, complicated migraine. Patient's symptoms significantly improved and back to baseline. We will continue on Plavix and statin. For chest pain troponin remained flat. Unlikely ACS. For morbid obesity weight loss recommended. For hypertension BP meds were held while inpatient due to low normal blood pressures, can be restarted as outpatient if blood pressure elevated. Time Attestation Discharge Coordination Time (in mins): 33 Quality: Safe Use of Opioids Does Pt have an Active Cancer Diagnosis on the Problem List?: No Quality: Stroke Does the patient have a stroke diagnosis?: No Physical Exam Vital Signs: Vital Signs: Last Vital Signs Temp 97.4 F 02/27/24 07:51 Pulse 74 02/27/24 08:20 Resp 17 02/27/24 07:51 BP 138/67 02/27/24 07:51 Pulse Ox 98 02/27/24 07:51 O2 Del Method Room Air 02/27/24 07:51 BMI result Body Mass Index 62.2 Neuro: Other: She is alert and awake with normal spontaneity of speech fluency comprehension and affect. Intravenous performed with the help of an motion picture set up worker. Face is symmetrical. Visual urbina are full. She moves right side slower the left side. Plantars are flexor. DS: Data Data Completed and Pending Labs on day of discharge: Laboratory Results - last 24 hr 02/26/24 02/26/24 02/26/24 14:17 14:22 14:48 WBC 11.0 H RBC 4.21 Hgb 12.4 Hct 36.9 L MCV 87.6 MCH 29.5 MCHC 33.6 RDW 12.7 Plt Count 342 MPV 9.6 Immature Gran % (Auto) 1.1 H Neut % (Auto) 71.2 Lymph % (Auto) 19.5 L [place] % (Auto) 6.9 Eos % (Auto) 0.8 Baso % (Auto) 0.5 Lymph # (Auto) 2.1 [place] # (Auto) 0.8 Eos # (Auto) 0.1 Baso # (Auto) 0.1 Abs Immat Gran (auto) 0.12 H Absolute Neuts (auto) 7.8 Absolute Nucleated RBC 0.000 Nucleated RBC % (auto) 0.0 PT Whole Blood PT 12.0 INR Whole Blood INR 1.0 APTT Sodium 139 Potassium 3.8 Chloride 103 Carbon Dioxide 29 Anion Gap 11 L BUN 30 H Creatinine 0.75 Estim Creat Clear Calc 89.8 Estimated GFR > 60 POC Glucose 90 Random Glucose 99 Calcium 9.4 D Total Bilirubin 0.4 AST 22 ALT 10 Alkaline Phosphatase 55 Troponin I High Sens < 2.7 Total Protein 7.7 Albumin 3.8 Triglycerides Cholesterol LDL Cholesterol, Calc HDL Cholesterol Urine Color Urine Appearance Urine pH Ur Specific [place] Urine Protein Urine Glucose (UA) Urine Ketones Urine Blood Urine Nitrite Ur Leukocyte Esterase Urine RBC Urine WBC Ur Squamous Epith Cells Urine Bacteria Hyaline Casts 02/26/24 02/26/24 02/26/24 14:49 16:59 21:38 WBC RBC Hgb Hct MCV MCH MCHC RDW Plt Count MPV Immature Gran % (Auto) Neut % (Auto) Lymph % (Auto) [place] % (Auto) Eos % (Auto) Baso % (Auto) Lymph # (Auto) [place] # (Auto) Eos # (Auto) Baso # (Auto) Abs Immat Gran (auto) Absolute Neuts (auto) Absolute Nucleated RBC Nucleated RBC % (auto) PT 11.5 Whole Blood PT INR 1.0 Whole Blood INR APTT 30.0 Sodium Potassium Chloride Carbon Dioxide Anion Gap BUN Creatinine Estim Creat Clear Calc Estimated GFR POC Glucose 109 Random Glucose Calcium Total Bilirubin AST ALT Alkaline Phosphatase Troponin I High Sens 6.2 D Total Protein Albumin Triglycerides 133 Cholesterol 172 LDL Cholesterol, Calc 107 H HDL Cholesterol 39 L Urine Color Yellow Urine Appearance Clear Urine pH 8.0 Ur Specific [place] 1.010 Urine Protein Negative Urine Glucose (UA) Negative Urine Ketones Negative Urine Blood Negative Urine Nitrite Negative Ur Leukocyte Esterase Trace H Urine RBC 0-2 Urine WBC 0-5 Ur Squamous Epith Cells 3-5 Urine Bacteria None Seen Hyaline Casts 0-2 02/26/24 02/27/24 23:03 07:01 WBC 8.7 RBC 3.99 L Hgb 11.8 L Hct 34.6 L MCV 86.7 MCH 29.6 MCHC 34.1 RDW 12.9 Plt Count 318 MPV 9.5 Immature Gran % (Auto) Neut % (Auto) Lymph % (Auto) [place] % (Auto) Eos % (Auto) Baso % (Auto) Lymph # (Auto) [place] # (Auto) Eos # (Auto) Baso # (Auto) Abs Immat Gran (auto) Absolute Neuts (auto) Absolute Nucleated RBC 0.000 Nucleated RBC % (auto) 0.0 PT Whole Blood PT INR Whole Blood INR APTT Sodium 139 Potassium 3.6 Chloride 101 Carbon Dioxide 27 Anion Gap 15 BUN 24 H Creatinine 0.83 Estim Creat Clear Calc 80.2 Estimated GFR > 60 POC Glucose Random Glucose 99 Calcium 9.8 Total Bilirubin AST ALT Alkaline Phosphatase Troponin I High Sens 4.4 Total Protein Albumin Triglycerides Cholesterol LDL Cholesterol, Calc HDL Cholesterol Urine Color Urine Appearance Urine pH Ur Specific [place] Urine Protein Urine Glucose (UA) Urine Ketones Urine Blood Urine Nitrite Ur Leukocyte Esterase Urine RBC Urine WBC Ur Squamous Epith Cells Urine Bacteria Hyaline Casts Discharge Plan Discharge Anticipated Discharge Date/Time: 02/27/24 11:02 Patient Disposition: Home Health Service Discharge Diagnosis: migraine Referrals: Physician,Unknown J [Primary Care Provider] - 1 Week Discharge Medications: Continued verapamil 240 mg tablet extended release 240 mg PO BEDTIME chlorthalidone 25 mg tablet 25 mg PO DAILY acetaminophen 500 mg tablet 500 mg PO Q6H PRN (Reason: Pain) atorvastatin 40 mg tablet 40 mg PO BEDTIME meclizine 12.5 mg tablet 12.5 mg PO TID clopidogrel 75 mg tablet 75 mg PO DAILY omeprazole 20 mg capsule,delayed release(DR/EC) 20 mg PO DAILY@0630 cholecalciferol (vitamin D3) [Vitamin D3] 125 mcg (5,000 unit) tablet 125 mcg PO DAILY lisinopril 40 mg tablet 20 mg PO DAILY Qty: 30 0RF Discharge Orders: Discharge Order (Routine); Ordered 02/27/24 Ordered By: Vasyl Saleh Diet: Advance to usual diet Activity on Discharge: As tolerated Stand Alone Forms: Patient Portal Discharge page Print Language: Luxembourgish Care Plan Goals: manage symtpoms Health Concerns: migraine Plan of Treatment: symptomatic management Assessment: see above
--- NOTE | 2024-02-27 11:32 | MHC.CM.PN ---
Pt has been medically cleared for DC, she will go home via private transport and resume her home health care services.
[2024-02-27 11:35] VITALS: BP 147/72; PULSE 78; RESP 19; TEMP 36.6; O2SAT 95
== END 2024-02-27 13:25 | disposition home health service (06) ==
LOC: HO.ED 16:24 → HO.EDOVER 16:57 → HO.IMC 19:20
PROVIDERS: Admitting Provider Internal Medicine; Emergency Provider Emergency Medicine Emergency Medical Services; PCP Nurse Practitioner Family; Visit Provider Internal Medicine
DX: R20.2 Paresthesia of skin (principal); R53.1 Weakness; R07.9 Chest pain, unspecified; I10 Essential (primary) hypertension; E78.00 Pure hypercholesterolemia, unspecified; R51.9 Headache, unspecified; E66.01 Morbid (severe) obesity due to excess calories; Z68.44 Body mass index [BMI] 60.0-69.9, adult; Z79.899 Other long term (current) drug therapy; Z86.73 Personal history of transient ischemic attack (TIA), and cerebral infarction without residual deficits
CPT/HCPCS: 36415; 70450; 70496; 70498; 70551; 80048; 80053; 80061; 81001; 82947; 84484; 85025; 85027; 85610; 85730; 93005; 96372; 97162; 97166; 99222; 99285; J1650; Q9967

== ENCOUNTER → 2024-02-26 13:40 | Outpatient (BNV) | payer OTHER, SELFPAY | PROVIDERS: Admitting Provider Internal Medicine; Emergency Provider Emergency Medicine Emergency Medical Services; Visit Provider Internal Medicine | DX: R07.9 Chest pain, unspecified (principal) | CPT/HCPCS: 93010 ==

== ENCOUNTER → 2024-02-26 16:41 | Outpatient (BNV) | payer OTHER, SELFPAY | PROVIDERS: Admitting Provider Internal Medicine; Emergency Provider Emergency Medicine Emergency Medical Services; Visit Provider Psychiatry & Neurology Neurology | DX: G81.91 Hemiplegia, unspecified affecting right dominant side (principal) | CPT/HCPCS: 99222 ==

== ENCOUNTER → 2024-02-26 16:41 | Outpatient (BNV) | payer OTHER, SELFPAY | PROVIDERS: Admitting Provider Internal Medicine; Emergency Provider Emergency Medicine Emergency Medical Services; Visit Provider Internal Medicine | DX: G81.91 Hemiplegia, unspecified affecting right dominant side (principal) | CPT/HCPCS: 99223; 99239 ==

== ENCOUNTER 2024-03-24 13:59 | Outpatient (REF) | payer OTHER, SELFPAY ==
[2024-03-24 16:52] LABS: Alanine Aminotransferase 11 U/L (0-31); Albumin Level 4.3 g/dL (3.5-5.0); Alkaline Phosphatase 73 U/L (39-117); Anion Gap 12 (12-20); Aspartate Amino Transferase 30 U/L (5-31); Bilirubin Total 0.4 mg/dL (0.0-1.0); Blood Urea Nitrogen 29 mg/dL (9-16); Calcium 10.1 mg/dL (8.4-10.2); Carbon Dioxide 27 mmol/L (22-29); Chloride 105 mmol/L (96-108); Cholesterol 179 mg/dL (<200); Estimated Glomerular Filt Rate 56; Glucose Random 101 mg/dL (60-115); HDL Cholesterol 41 mg/dL (>40); LDL Cholesterol Calculated 111 mg/dL (<100); Potassium 3.9 mmol/L (3.3-5.1); Sodium 140 mmol/L (135-145); Total Protein 8.7 g/dL (6.5-8.0); Triglycerides 139 mg/dL (<150)
[2024-03-24 17:08] LABS: TSH reflex Free T4 0.89 uIU/mL (0.32-4.0); Vitamin D 25-OH Total 39.2 ng/mL (>30)
[2024-03-24 18:56] LABS: Reflex LDLD? No
== END 2024-03-24 14:00 | disposition home or self-care (01) ==
LOC: HO.HHCL 13:59
PROVIDERS: Visit Provider Internal Medicine
DX: F41.8 Other specified anxiety disorders (principal); I11.0 Hypertensive heart disease with heart failure; I50.9 Heart failure, unspecified; I73.9 Peripheral vascular disease, unspecified
CPT/HCPCS: 36415; 80053; 80061; 82306; 84443

== ENCOUNTER 2024-07-14 11:09 | Emergency (ER) | payer OTHER, SELFPAY ==
--- NOTE | ~2024-07-14 | XR_ITS ---
EXAMINATION: XR CHEST CLINICAL INFORMATION: right sided chest pain COMPARISON: 01/13/2024. 11/01/2023. TECHNIQUE: Frontal view of the chest was obtained. FINDINGS: The cardiac, hilar, and mediastinal contours are normal. The lungs are clear bilaterally. No pneumothorax or effusion. No focal osseous or soft tissue abnormality. XR/XR chest 1V IMPRESSION: No active pulmonary disease. Electronically signed by: Shant Velazquez MD 07/14/2024 12:40 PM EDT
[2024-07-14 11:27] VITALS: BP 122/77; PULSE 83; O2SAT 98
[2024-07-14 11:30] VITALS: BP 110/44; PULSE 72; RESP 16; TEMP 36.2; O2SAT 96; BMI 47.9
--- NOTE | 2024-07-14 11:45 | ED.GENADULT ---
HPI - General Adult General Chief complaint: General Medical Stated complaint: R SIDE PAIN X1 DAY PER EMS Time Seen by Provider: 07/14/24 11:19 History of Present Illness ED Provider: Rio Kwan MD HPI narrative: [age] old female with history of morbid obesity, stroke with residual right-sided deficits reports last night gradual onset right facial, right chest and right leg pain. No injury she denies any acute sensory or motor deficits. She is baseline ambulates with a walker. There is no pleuritic component of this she denies exertional pain no cough or hemoptysis. Regarding the face onset was around the same time as the right chest. Related Data Home Medications ?Medication ?Instructions ?Recorded ?Confirmed atorvastatin 40 mg tablet 40 mg PO BEDTIME 08/06/22 02/26/24 cholecalciferol (vitamin D3) 125 125 mcg PO DAILY 08/06/22 02/26/24 mcg (5,000 unit) tablet (Vitamin D3) clopidogrel 75 mg tablet 75 mg PO DAILY 08/06/22 02/26/24 meclizine 12.5 mg tablet 12.5 mg PO TID 08/06/22 02/26/24 omeprazole 20 mg capsule,delayed 20 mg PO DAILY@0630 08/06/22 02/26/24 release acetaminophen 500 mg tablet 500 mg PO Q6H PRN Pain 02/26/24 02/26/24 chlorthalidone 25 mg tablet 25 mg PO DAILY 02/26/24 02/26/24 verapamil 240 mg tablet,extended 240 mg PO BEDTIME 02/26/24 02/26/24 release Previous Rx's ?Medication ?Instructions ?Recorded lisinopril 40 mg tablet 20 mg (1/2 x 40 mg) PO DAILY #30 08/08/22 tabs Allergies Allergy/AdvReac Type Severity Reaction Status Date / Time aspirin [Aspirin] Allergy Mild SWELLING, Verified 07/14/24 11:34 facial swelling, redness Sulfa (Sulfonamide Allergy Mild SWELLING, Verified 07/14/24 11:34 Antibiotics) facial [Sulfa (Sulfonamides)] swelling, redness shrimp Allergy Unknown Verified 07/14/24 11:34 PMFSH Past Medical History Medical History Mood disorder Mixed hyperlipidemia Essential hypertension UTI (urinary tract infection) CVA (cerebral vascular accident) Social History Social History Household Members: Family Housing: Assisted Living Facility Do you presently have visiting nurse or other home services: No Patient Tobacco Use Status: Never used Tobacco Second Hand Smoke Exposure: No Advance Directives: No Advance Directives Information Provided: Yes service: No Current occupational status: disabled Physical Exam ED Vital Signs: Vital Signs - 24 hr 07/14/24 11:30 07/14/24 14:17 07/14/24 14:33 Temperature 97.2 F 96.8 F 96.8 F Pulse Rate 72 103 H 103 H Respiratory Rate 16 18 18 Blood Pressure 110/44 L 116/60 116/60 Pulse Oximetry 96 100 100 Oxygen Delivery Method Room Air Room Air Room Air BMI result Body Mass Index 47.9 Const Other: EXAM: Gen: Alert, awake, well appearing, well hydrated. , comfortable Head: Atraumatic Eyes: Anicteric, Normal conjunctiva. ENT: Moist mucosa, no pallor. ? Neck: Supple. Respiratory: Breathing comfortably, No distress.Clear to auscultation bilaterally, symmetric chest expansion, No wheeze, rales, ronchi. Cardiovascular: Regular rate and rhythm. No murmurs or rub. Well perfused periphery, warm extremities. No edema. ? Abdominal: Soft, no objective distension. No palpable masses or obvious organomegaly. No focal tenderness, no guarding, no rebound tenderness or other peritoneal findings. : No flank tenderness. Neuro: Alert. G baseline right-sided motor deficits upper and lower. Symmetric face and smile. Pupils 2-3 mm symmetric and reactive. Sensation intact to light touch throughout. Vital signs: See flowsheet Medications Administered Discontinued Medications Generic Name Dose Route Start Last Admin Trade Name Freq PRN Reason Stop Dose Admin Acetaminophen 975 mg 07/14/24 12:24 07/14/24 12:46 Acetaminophen 325 Mg Tablet PO 07/14/24 12:25 975 mg ONCE ONE Administration Medical Decision Making Medical Decision Making MDM Narrative: [age] female with history of stroke no known cardiac disease. Symptoms as above multisystem seemed to be started around the same time. No traumatic injuries. Her chest wall and musculature along the pectoral on periscapular region is somewhat tender but there is no bruising there is no pneumothorax or infiltrate in the x-ray. ECG is reassuring. Troponin negative labs reassuring. Suspect musculoskeletal etiology for the atypical chest pain. Doubt ACS, doubt PE. No clinical signs of DVT. Neuro exam baseline per her. Patient reassured Lab Data MDM Lab Attestation statement: I reviewed the patient's lab results. 07/14/24 12:03 07/14/24 12:03 Labs: Lab Results 07/14/24 Range/Units 12:03 WBC 8.4 (4.8-10.8) X10*3/uL RBC 4.03 L (4.20-5.50) X10*6/uL Hgb 11.8 L (12.0-16.0) g/dl Hct 36.5 L (37.0-47.0) % MCV 90.6 (80.0-98.0) fL MCH 29.3 (27.0-33.0) pg MCHC 32.3 (31.0-35.0) g/dl RDW 12.7 (11.0-16.0) % Plt Count 306 (160-400) X10*3/uL MPV 9.8 (9.4-12.3) fL Immature Gran % (Auto) 0.5 H (0.0-0.4) % Neut % (Auto) 68.2 (45-73) % Lymph % (Auto) 22.4 (20-40) % [place] % (Auto) 7.0 (2-11) % Eos % (Auto) 1.2 (0-4) % Baso % (Auto) 0.7 (0-2) % Lymph # (Auto) 1.9 (1.2-4.9) X10*3/uL [place] # (Auto) 0.6 (0.1-1.2) X10*3/uL Eos # (Auto) 0.1 (0.0-0.4) X10*3/uL Baso # (Auto) 0.1 (0.0-0.2) X10*3/uL Abs Immat Gran (auto) 0.04 H (0.00-0.03) X10*3/uL Absolute Neuts (auto) 5.7 (2.0-8.3) x10*3/uL Absolute Nucleated RBC 0.000 (0.0-0.012) X10*3/uL Nucleated RBC % (auto) 0.0 (0.0-0.2) /100WBC Sodium 138 (135-145) mmol/L Potassium 4.1 (3.3-5.1) mmol/L Chloride 104 (96-108) mmol/L Carbon Dioxide 25 (22-29) mmol/L Anion Gap 13 (12-20) BUN 46 H (9-16) mg/dL Creatinine 1.15 (0.5-1.4) mg/dL Estim Creat Clear Calc 64.2 Estimated GFR 47 Random Glucose 114 (60-115) mg/dL Calcium 9.8 (8.4-10.2) mg/dL Total Bilirubin 0.3 (0.0-1.0) mg/dL AST 20 (5-31) U/L ALT 8 (0-31) U/L Troponin I High Sens 2.8 (<3.5-17.0) ng/L Total Protein 7.2 (6.5-8.0) g/dL Albumin 3.8 (3.5-5.0) g/dL Independent Interpretation I performed an independent interpretation of an: EKG (Sinus rhythm rate 69 QTC 435 no acute ischemic changes.) Discharge Plan Discharge Clinical Impression: Chest pain Patient Disposition: Home, Self-Care Instructions: Chest Pain (ED) Additional Instructions: DISCHARGE DIAGNOSES: Chest pain, leg pain, right facial pain unclear cause at this time chest pain may be musculoskeletal given the tenderness over the chest wall muscles HISTORY OF PRESENTATION: ?Pain to the right side EMERGENCY DEPARTMENT COURSE,TESTS, TREATMENTS: While in the ED today you had a workup including x-ray lab work cardiac enzyme test EKG which did not reveal any obvious acute pathology DISCHARGE MEDICATIONS: ?[We have made no changes to your regular medication regimen] FOLLOW-UP: ?Call your primary or general physician soon as possible to discuss your symptoms, your ED visit and to discuss follow up plans Call your primary doctor you can use a topical treatments such as lidocaine patch or diclofenac gel over the right pectoral chest INSTRUCTIONS ?& RETURN PRECAUTIONS: If any symptoms change first call your primary physician, if it is after-hours your primary doctors office should have a provider production line welder you can speak with. If the symptoms are severe or very concerning to you then call 911 or return to the ED. Rio Kwan MD Emergency Physician [facility] Prescriptions: No Action verapamil 240 mg tablet extended release 240 mg PO BEDTIME chlorthalidone 25 mg tablet 25 mg PO DAILY acetaminophen 500 mg tablet 500 mg PO Q6H PRN (Reason: Pain) atorvastatin 40 mg tablet 40 mg PO BEDTIME meclizine 12.5 mg tablet 12.5 mg PO TID clopidogrel 75 mg tablet 75 mg PO DAILY omeprazole 20 mg capsule,delayed release(DR/EC) 20 mg PO DAILY@0630 cholecalciferol (vitamin D3) [Vitamin D3] 125 mcg (5,000 unit) tablet 125 mcg PO DAILY lisinopril 40 mg tablet 20 mg PO DAILY Qty: 30 0RF Interventions: ED Discharge Assessment Last Done: 07/14/24 14:33 Discharge Date/Time: 07/14/24 14:33 Print Language: Uzbek
--- NOTE | 2024-07-14 11:49 | ECG_ITS ---
Test Reason : right side cp Blood Pressure : */* mmHG Vent. Rate : 69 BPM Atrial Rate : 69 BPM P-R Int : 136 ms QRS Dur : 78 ms QT Int : 406 ms P-R-T Axes : 28 0 23 degrees QTcB Int : 435 ms Normal sinus rhythm Minimal voltage criteria for LVH, may be normal variant ( R in aVL ) Borderline ECG When compared with ECG of 26-Feb-2024 13:47, No significant change was found Referred By: Rio Kwan Electronically Signed By: BRADY GENAO
[2024-07-14 12:07] LABS: MANUAL DIFF FLAG NO
[2024-07-14 12:09] LABS: Basophils Absolute Auto 0.1 X10*3/uL (0.0-0.2); Basophils Percent Auto 0.7 % (0-2); Eosinophils Absolute Auto 0.1 X10*3/uL (0.0-0.4); Eosinophils Percent Auto 1.2 % (0-4); Hematocrit 36.5 % (37.0-47.0); Hemoglobin 11.8 g/dl (12.0-16.0); Imm Gran Abs Auto 0.04 X10*3/uL (0.00-0.03); Imm Gran Pct Auto 0.5 % (0.0-0.4); Lymphocytes Absolute Auto 1.9 X10*3/uL (1.2-4.9); Lymphocytes Percent Auto 22.4 % (20-40); Mean Corpuscular HGB Conc 32.3 g/dl (31.0-35.0); Mean Corpuscular Hemoglobin 29.3 pg (27.0-33.0); Mean Corpuscular Volume 90.6 fL (80.0-98.0); Mean Platelet Volume 9.8 fL (9.4-12.3); Monocytes Absolute Auto 0.6 X10*3/uL (0.1-1.2); Neutrophils Absolute Auto 5.7 x10*3/uL (2.0-8.3); Neutrophils Percent Auto 68.2 % (45-73); Platelet Count 306 X10*3/uL (160-400); Red Blood Count 4.03 X10*6/uL (4.20-5.50); Red Cell Distribution Width 12.7 % (11.0-16.0); White Blood Count 8.4 X10*3/uL (4.8-10.8)
[2024-07-14 12:24] LABS: Anion Gap 13 (12-20)
[2024-07-14 12:29] LABS: Alanine Aminotransferase 8 U/L (0-31); Albumin Level 3.8 g/dL (3.5-5.0); Aspartate Amino Transferase 20 U/L (5-31); Bilirubin Total 0.3 mg/dL (0.0-1.0); Blood Urea Nitrogen 46 mg/dL (9-16); Calcium 9.8 mg/dL (8.4-10.2); Carbon Dioxide 25 mmol/L (22-29); Chloride 104 mmol/L (96-108); Creatinine Clr Calc Pharmacy 64.2; Estimated Glomerular Filt Rate 47; Glucose Random 114 mg/dL (60-115); Potassium 4.1 mmol/L (3.3-5.1); Sodium 138 mmol/L (135-145); Total Protein 7.2 g/dL (6.5-8.0)
[2024-07-14 12:35] LABS: Troponin-I High Sensitivity 2.8 ng/L (<3.5-17.0)
[2024-07-14] MEDS: Acetaminophen 325 MG TABLET 975 MG PO (12:46)
--- NOTE | 2024-07-14 13:42 | PC.NURSE ---
Ambulated to bathroom and back with walker and assistance from ED PCT. Incontinent of urine in bed. Also voided in toilet.
--- OUTSIDE RECORDS SUMMARY | 2024-07-14 13:50 | XMS_ITS | Encounter Summary ---
Author Organization [employer] Address [address] [place] [address] [address] [place] [address] Care Team Providers Care Consumer Insights Specialist Name Role Phone Anna Parnell MD Primary Care Provider [phone] Kate Cesar MD Primary Care Provider + Encounter Details Date Type Department Care Team (Late st Contact Info) Description 07/24/2023 Abstract HF [facility] PRIMARY/PEDS [address] [place] [address], [address] [address] Anna Parnell MD [address] [place] [id number] Social History Tobacco Use Types Packs/Day Years Used Date Smoking Tobacco: Never Passive Smoke Exposure: Never Smokeless Tobacco: Never Alcohol Use Standard Drinks/Week Comments Never 0 (1 standard drink = 0.6 oz pur e alcohol) Depression Answer Date Recorded Patient Health Questionnaire-9 Score 6 09/10/2022 Housing Stability Answer Date Recorded What is your housing situation today? I have adair morgan 01/29/[address] you li ve. Do you have problems with any of the following? I am not sure 01/29/2023 Food Insecurity Answer Date Recorded Within the past 12 months, y ou worried that your food would run out before you got money to buy more: Never True 01/29/2023 Within the past 12 months,th e food you bought just didn't last and you didn't have enough money to get more: Never True Transportation Answer Date Recorded In the past 12 months, has l ack of transportation kept you from medical appts, meetings, work or from getting things needed for daily living? I am not sure 01/29/2023 Utilities Answer Date Recorded In the past 12 months, has t he electric, gas, oil or water company threatened to shut off services in your home? No 12/31/2022 Depression Answer Date Recorded Patient Health Questionnaire-2 Score 1 09/10/2022 Comments No Sex and Gender Information Value Date Recorded Sex Assigned at Female 01/10/2022 4:10 PM EDT Legal Sex Female 7:51 PM EDT Gender Identity Female 02/16/2022 10:32 AM EST Sexual Orientation Straight 01/05/2022 7: 51 PM EDT documented as of this encounter Plan of Treatment Upcoming Encounters Date Type Department Care Team (Late st Contact Info) Description 09/10/2024 10:30 AM EDT Office Visit [facility] OPTOMETRY [address] [place] [address] Vicki Zapata, OD [address] [place] [address] 05/07/2025 10:00 AM EST Telemedicine [facility] MEDICINE [address] [place] [address] documented as of this encounter Visit Diagnoses Not on filedocumented in this encounter Additional Health Concerns Assessment Noted Time PHQ-9 Depression Total Score: 6 09/11/19 23 12:43 PM EDT documented as of this encounter Care Teams Consumer Insights Specialist Relationship Specialty Start Date End Date Anna Parnell MD [address] [place] [phone] PCP - General Internal Medicine 06/10/23 10/31/23 Kate Cesar MD [address] [place] [address] PCP - General Internal Medicine 03/24/24 documented as of this encounter
--- OUTSIDE RECORDS SUMMARY | 2024-07-14 13:50 | XMS_ITS | Encounter Summary ---
Author Organization [employer] Address [address] [facility] 7[address] [place] [address] Care Team Providers Care Tandem Mill Operator Name Role Phone Kate Cesar MD Primary Care Provider + Encounter Details Date Type Department Care Team (Late st Contact Info) Description 07/14/2024 Orders Only [facility] External Provider, [facility] Social History Tobacco Use Types Packs/Day Years Used Date Smoking Tobacco: Never Passive Smoke Exposure: Never Smokeless Tobacco: Never Alcohol Use Standard Drinks/Week Comments Never 0 (1 standard drink = 0.6 oz pur e alcohol) Depression Answer Date Recorded Patient Health Questionnaire-9 Score 17 03/24/2024 Patient Health Questionnaire-9 Score 17 03/24/2024 Last PHQ-9: Questionnaire Data Not on file 0 03/24/2024 Housing Stability Answer Date Recorded What is your housing situation today? I do not have housing (Staying with others, in a hotel, in a usp, living outside on the street, on a beach, in a car, or in a park 03/12/[address] you li ve. Do you have problems with any of the following? None of the above 03/12/2024 Food Insecurity Answer Date Recorded Within the past 12 months, y ou worried that your food would run out before you got money to buy more: Never True 03/12/2024 Within the past 12 months,th e food you bought just didn't last and you didn't have enough money to get more: Never True 04/2024 Transportation Answer Date Recorded In the past 12 months, has l ack of transportation kept you from medical appts, meetings, work or from getting things needed for daily living? Yes, it has kept me from medical appointments or getting medications. 03/12/2024 Utilities Answer Date Recorded In the past 12 months, has t he electric, gas, oil or water company threatened to shut off services in your home? No 03/12/2024 Depression Answer Date Recorded Patient Health Questionnaire-2 Score 6 03/24/2024 Internet Access Answer Date Recorded Internet Access Q1 No 03/12/2024 Internet Access Q2 I do not want or need it 04/2024 Comments No Sex and Gender Information Value [...] Description 09/10/2024 10:30 AM EDT Office Visit [facility] OPTOMETRY [address] [place] [address] Vicki Zapata, OD [address] [place] [address] 05/07/2025 10:00 AM EST Telemedicine [facility] MEDICINE [address] [place] [address] documented as of this encounter Procedures Procedure Name Priority Date/Time Associated Diagnosis Comments XR CHEST 1 VIEW Routine 07/14/2024 11:50 AM EDT documented in this encounter Results * XR Chest 1 View (07/14/2024 11:50 AM EDT) Anatomical Region Laterality Modality Chest Radiographic Alicia ging 07/14/2024 11:5 0 AM EDT Narrative 07/14/2024 12:43 PM EDT ? [facility] ?[address] ?[place] [address] ?XRay Report ? Signed ? Patient: Luevano,Alysa ?MR#: [id number] ?? 77 ? : 1960 ?Acct:[id number] ? Age/Sex: 63 / F ?ADM Date: 05/06/25 ? Loc: HO.ED ? Attending Dr: ? Ordering Physician: Rio Kwan MD ?? Date of Service: 07/14/24 ?? Procedure(s): XR chest 1V ?? Accession Number(s): [id number] ? cc: Kate Cesar MD; Rio Kwan MD ? EXAMINATION: ?? XR CHEST ? CLINICAL INFORMATION: ?? right sided chest pain ? COMPARISON: ?? 01/13/2024. 11/01/2023. ? TECHNIQUE: ?? Frontal view of the chest was obtained. ? FINDINGS: ?? The cardiac, hilar, and mediastinal contours are normal. ? The lungs are clear bilaterally. No pneumothorax or effusion. ? No focal osseous or soft tissue abnormality. ? XR/XR chest 1V ?? IMPRESSION: ?? No active pulmonary disease. ? Electronically signed by: ??Shant Velazquez MD ??07/14/2024 12:40 PM EDT RP ? Dictated By: ?Shant Velazquez MD ? Signed By: ?<Electronically signed by Shant Velazquez MD in OV> ?07/14/24 1240 ? DD/ 1150 ? TD/TT: 07/14/24 1215 ? Dosimetrist: ? Procedure Note Gloria Beltrán - 07/14/2024 [place] [address] XRay Report Signed Patient: Veda LuevanoR#: [id number] : 9Acct:[id number] Age/Sex: 63 / FADM Date: 07/14/24 Loc: HO.ED Attending Dr: Ordering Physician: Rio Kwan MD Date of Service: 07/14/24 Procedure(s): XR chest 1V Accession Number(s): [id number] cc: Kate Cesar MD; Rio Kwan MD EXAMINATION: XR CHEST CLINICAL INFORMATION: right sided chest pain COMPARISON: 01/13/2024. 11/01/2023. TECHNIQUE: Frontal view of the chest was obtained. FINDINGS: The cardiac, hilar, and mediastinal contours are normal. The lungs are clear bilaterally. No pneumothorax or effusion. No focal osseous or soft tissue abnormality. XR/XR chest 1V IMPRESSION: No active pulmonary disease. Electronically signed by: Shant Velazquez MD 07/14/2024 12:40 PM EDT RP Dictated By: Shant Velazquez MD Signed By: <Electronically signed by Shant Velazquez MD in OV> 07/14/24 1240 DD/ 1150 TD/TT: 07/14/24 1215 Dosimetrist: [facility] External Provider IMG XR PROCEDURES Final Result documented in this encounter Visit Diagnoses Not on filedocumented in this encounter Additional Health Concerns Assessment Noted Time PHQ-9 Depression Total Score: 17 025 1:02 PM EST documented as of this encounter Care Teams Tandem Mill Operator Relationship Specialty Start Date End Date Kate Cesar MD [address] [place] [id number] PCP - General Internal Medicine 03/24/24 documented as of this encounter
--- OUTSIDE RECORDS SUMMARY | 2024-07-14 13:50 | XMS_ITS | Encounter Summary ---
Author Organization [employer] Address [address] [place] [address] [address] [place] [address] Care Team Providers Care Guidance Adviser Name Role Phone Massiel Nelson [facility] Primary Care Provider Anan Garcia MD Primary Care Provider [phone] Kate Cesar MD Primary Care Provider + Encounter Details Date Type Department Care Team (Late st Contact Info) Description 04/02/2022 Orders Only HF [facility] PRIMARY/PEDS [address] [facility], [address] [place] [id number] AnitaRoxanne langley, WOOD FINISHER APPRENTICE [address] [facility] [address] [place] [address] Social History Tobacco Use Types Packs/Day Years Used Date Smoking Tobacco: Never Smokeless Tobacco: Never Alcohol Use Standard Drinks/Week Comments Never 0 (1 standard drink = 0.6 oz pur e alcohol) PHQ-2 Answer Date Recorded Patient Health Questionnaire-2 Score 0 02/16/2022 Comments Unknown Sex and Gender Information Value Date Recorded Sex Assigned at Female 01/10/2022 4:10 PM EDT Legal Sex Female 7:51 PM EDT Gender Identity Female 02/16/2022 10:32 AM EST Sexual Orientation Straight 01/05/2022 7: 51 PM EDT documented as of this encounter Plan of Treatment Upcoming Encounters Date Type Department Care Team (Late st Contact Info) Description 09/10/2024 10:30 AM EDT Office Visit [facility] [address] [place] [id number] Jodi Vicki, OD [address] [place] [address] 05/07/2025 10:00 AM EST Telemedicine [facility] MEDICINE [address] [place] [address] documented as of this encounter Visit Diagnoses Not on filedocumented in this encounter Care Teams Guidance Adviser Relationship Specialty Start Date End Date [facility] - General 03/24/22 06/09/23 Anna Parnell MD [address] [place] [id number] PCP - General Internal Medicine 06/10/23 10/31/23 Kate Cesar MD [address] [place] [address] PCP - General Internal Medicine 03/24/24 documented as of this encounter
--- OUTSIDE RECORDS SUMMARY | 2024-07-14 13:50 | XMS_ITS | Encounter Summary ---
Author Organization [employer] Address [address] [place] [address] [address] [place] [address] Care Team Providers Care Blower Feeder Dyed Raw Stock Name Role Phone Massiel Nelson [facility] Primary Care Provider Anna Garcia MD Primary Care Provider [phone] Kate Cesar MD Primary Care Provider + Encounter Details Date Type Department Care Team (Late Contact Info) Description 10/18/2022 Orders Only HF [facility] PRIMARY/PEDS [address] [place] [address], [address] [facility] Social History Tobacco Use Types Packs/Day Years Used Date Smoking Tobacco: Never Smokeless Tobacco: Never Alcohol Use Standard Drinks/Week Comments Never 0 (1 standard drink = 0.6 oz pur e alcohol) Depression Answer Date Recorded Patient Health Questionnaire-9 Score 6 09/10/2022 Depression Answer Date Recorded Patient Health Questionnaire-2 [...] Description 09/10/2024 10:30 AM EDT Office Visit [facility] OPTOMETRY [address] [place], [place] [phone] Vicki Zapata, OD [address] [place], [place] [phone] 05/07/2025 10:00 AM EST Telemedicine [facility] MEDICINE [address] [place] [address] documented as of this encounter Visit Diagnoses Not on filedocumented in this encounter Additional Health Concerns Assessment Noted Time PHQ-9 Depression Total Score: 6 09/11/19 23 12:43 PM EDT documented as of this encounter Care Teams Blower Feeder [employer] Relationship Specialty Start Date End Date [facility] - General 03/24/22 06/09/23 Anna Parnell MD [address] [place] [phone] PCP - General Internal Medicine 06/10/23 10/31/23 Kate Cesar MD [address] [place] [address] PCP - General Internal Medicine 03/24/24 documented as of this encounter
--- OUTSIDE RECORDS SUMMARY | 2024-07-14 13:50 | XMS_ITS | Clinical Summary ---
Author Organization [employer] Address [address] [facility] [address] [place] [address] Care Team Providers Care Junior Bookkeeper Name Role Phone Kate Cesar MD Primary Care Provider + Allergies Active Allergy Reactions Criticality Noted Date Comments Amoxicillin Hives Medium 04/20/2022 Aspirin Other Low 02/09/2022 Other reaction(s): Swollen eyes Codeine Low 04/14/2018 Other reaction(s): fast heart rate Shrimp Flavor Agent (Non-Screening) Hives Low 10/11/2022 Sulfa Antibiotics Anaphylaxis High 07/16/2022 Sulfatolamide Low 01/10/2022 Sulfur Low 04/14/2018 Other reaction(s): Swollen Eyes Medications * This document contains information received from the source organization and may not represent a complete record from that organization. acetaminophen (Tylenol) 500 MG tabletIndications: Other chronic pain Take 1 tablet (500 mg) by mouth every 6 (six) hours if needed for mild pain or headaches. 90 tablet 3 01/10/20 24 025 Active atorvastatin (Lipitor) 40 MG tabletIndications: Mixed hyperlipidemia Take 1 tablet (40 mg) by mouth Once per day. 90 tablet 3 01/10/20 24 025 Active D-5000 125 MCG (5000 UT) tabletIndications: Mixed hyperlipidemia Take 1 tablet (5,000 Units) by mouth Once per day. 90 tablet 2 01/10/20 24 025 Active lisinopril 40 MG tabletIndications: Essential hypertension Take 1 tablet (40 mg) by mouth Once per day. 90 tablet 3 01/10/20 24 025 Active verapamil SR (Calan SR) 240 MG ER tabletIndications: Essential hypertension Take 1 tablet (240 mg) by mouth at bedtime. 90 tablet 3 01/10/20 24 025 Active meclizine (Antivert) 12.5 MG tabletIndications: Dizziness Take 1 tablet (12.5 mg) by mouth if needed in the morning, at noon, and at bedtime for dizziness. 270 tablet 1 01/10/20 24 Active chlorthalidone (Hygroton) 25 MG tablet Take 1 tablet (25 mg) by mouth Once per day. 30 tablet 11 01/10/20 24 025 Active clopidogrel (Plavix) 75 MG tabletIndications: 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 right dominant side (CMS/HCC) Take 1 tablet (75 mg) by mouth in the morning. 90 tablet 3 03/24/19 25 026 Active Blood Pressure Monitoring (Blood Pressure Cuff) misc Use daily as prescribed 1 each 03/24/19 25 Active pantoprazole (Protonix) 20 MG EC tablet Take 1 tablet (20 mg) by mouth before breakfast. Do not crush, chew, or split. 30 tablet 11 04/07/19 25 026 Active albuterol (Ventolin HFA) 108 (90 Base) MCG/ACT inhaler INHALE 1 PUFF BY MOUTH EVERY FOUR HOURS NEEDED FOR SHORTNESS OF BREATH OR WHEEZING 18 g 11 05/08/19 25 Active ammonium lactate (Amlactin) 12 % cream Apply topically if needed for dry skin. 385 g 05/23/19 25 Active fluticasone (Flonase) 50 MCG/ACT nasal spray Administer 1 spray into each nostril Once per day. 16 g 2 05/23/19 25 Active Polyvinyl Alcohol-Povidone 5-6 MG/ML solution 1 drop tid on both eyes 15 mL 2 05/23/19 25 Active clotrimazole (Lotrimin) 1 % cream Apply topically 2 times daily for 28 days. 30 g 5 05/23/19 25 025 Active Problems Problem Noted Date Diagnosed Date Dry eyes, bilateral 05/22/2024 Assessment & Plan (05/22/2024 1:19 PM EDT): Prescribed natural tears. Bilateral hearing loss 05/22/2024 Assessment & Plan (05/22/2024 1:19 PM EDT): Refer to Audiology Hyperkeratosis 05/22/2024 Assessment & Plan (05/22/2024 1:39 PM EDT): On tip toes. Use Eucerin cream and Vaseline nightly I gave her Rx clotrimazole cream to use as needed erythema or fungal infection, reconsult as needed if symptoms do not resolve within a week Congestive heart failure 03/24/2024 Class 3 severe obesity due t o excess calories with serious comorbidity and body mass index (BMI) of 50.0 to 59.9 in adult 03/24/2024 Assessment & Plan (03/24/2024 2:39 PM EST): Discussed re weight reduction options including exercise, life style modifications, diet. Recommended to decrease soda and sugary beverage consumption, increase protein intake with meals (at least 1 portion of protein with each meal) to assist with satiety, increase dietary fiber Recommended at least 150 min/week of moderate intensity exercise. Superficial thrombosis of leg, right 03/24/2024 Assessment & Plan (03/24/2024 2:40 PM EST): Currently asymptomatic, will need further evaluation. History of endometrial cancer 03/18/2024 Gastritis 03/18/2024 Severe obesity 03/18/2024 Hospital discharge follow-up 07/19/2023 Personal history of stroke with residual effects 07/16/2023 Migraine, unspecified, not i ntractable, without status migrainosus 07/12/2023 Peripheral vascular disease, unspecified 024 Muscle wasting and atrophy, not elsewhere classified, multiple sites 07/12/2023 Primary generalized (osteo)arthritis 07/12/2023 Need for assistance with personal care 4 Other lack of coordination 07/12/2023 Generalized anxiety disorder 07/12/2023 Unspecified abnormalities of gait and mobility 0 07/12/2023 Morbid obesity with BMI of 50.0-59.9, adult 06/11 Cerebrovascular accident (CV A) due to embolism of left middle cerebral artery 07/09/2023 Allergic rhinitis, unspecified 09/19/2022 Hemiplegia and hemiparesis f ollowing cerebral infarction affecting right dominant side 09/19/2022 Assessment & Plan (05/22/2024 1:40 PM EDT): S/P CVA, ambulates with cane or walker. Needs evaluation from PT for fall prevention and home DME. Continue Plavix and Atorvastatin. FU Lipids in 6 months. Will refer to Neurology. Patient or DISPOSAL OPERATOR will call [facility] to arrange for transportation for these appointments Assessment & Plan (03/24/2024 2:58 PM EST): S/P post CVA, has significant sensorial symptoms. Continue ambulation with the walker, may need DMEs to prevent falls at home, refer to PT, may need AFO to improve gait stability. Pt is allergic to Aspirin, continue Plavix life long. LDL is goal at 70, check lipids. Ischemic stroke 04/16/2022 Pulmonary hypertension, unspecified 04/16/2022 TIA (transient ischemic attack) 04/16/2022 Overview (07/19/2023): 07/09/23 acute R sided weakness, admitted to hospital Gastroesophageal reflux disease 02/16/2022 Chronic diastolic (congestive) heart failure 11/2021 Essential hypertension 02/09/2022 Assessment & Plan (03/24/2024 2:37 PM EST): Uncontrolled. Pt will check BP at home and FU with me in 4 weeks. Order labs and continue same medications. Lacunar infarct, acute 02/09/2022 Moderate persistent asthma without complication 02/09/2022 Obstructive sleep apnea (adult) (pediatric) 04/2021 Assessment & Plan (06/04/2024 9:52 AM EDT): Sleep study on 05/31/24, needs CPAP 13 cm H2O, alternative may need BiPAP if not corrected. Assessment & Plan (03/24/2024 2:59 PM EST): Pt has previous diagnosis, no sleep study in the record. Refer for polysomnography at hospital so she can get titration study. Mixed hyperlipidemia 02/09/2022 Assessment & Plan (05/22/2024 1:18 PM EDT): LDL is not at goal on Atorvastatin. FU Lipids in 6 months and I will adjust medication PRN, LDL goal is 70. Recurrent major depressive disorder, in partial remission 02/09/2022 Assessment & Plan (03/24/2024 2:39 PM EST): See above at anxiety. Unstable gait 02/09/2022 Assessment & Plan (03/24/2024 2:38 PM EST): Secondary to CVA, needs ambulation with walker. See above for PT referral. Anxiety associated with depression 02/09/2022 Assessment & Plan (03/24/2024 2:38 PM EST): PHQ 9 is positive, will refer to counselor for further evaluation. Resolved Problems Problem Noted Date Diagnosed Date Resolved Date Mastoiditis of left side 07/17/2023 Muscle weakness (generalized) 07/12/2023 05/22/2024 Acute right-sided weakness 07/09/2023 0 07/19/2023 Right sided weakness 07/09/2023 025 Pain in right knee 12/13/2022 01/08/2023 Difficulty in walking, not e lsewhere classified 09/19/2022 01/08/2023 Dizziness and giddiness 09/19/202212/11 Need for assistance with personal care 09/19/2022 01/08/2023 Other lack of coordination 09/19/2022 1 Other malaise 09/19/2022 01/08/2023 Other specified depressive episodes 09/19/2022 01/08/2023 Unspecified sequelae of cerebral infarction 09/19/2022 01/08/2023 Unsteadiness on feet 09/19/2022 023 Vitamin D deficiency, unspecified 09/19/2022 01/08/2023 Inadequate housing 05/28/2022 Obstructive sleep apnea syndrome 02/16/2022 01/08/2023 Arthritis 02/09/2022 04/27/2022 Chronic GERD 02/09/2022 02/16/2022 Constipation by delayed colonic transit 02/09/2022 01/08/2023 Dependence on other enabling machines and devices 02/09/2022 02/16/2022 Morbid obesity 02/09/2022 01/08/2023 Other chronic pain 02/09/2022 Primary osteoarthritis of both knees 02/09/2022 01/08/2023 Sleep dysfunction with arousal disturbance 02/09/2022 02/16/2022 Encounters * This document contains information received from the source organization and may not represent a complete record from that organization. Date Type Department Care Team Description 07/14/2024 Orders Only [facility] External Provider, [facility] 06/18/2024 Telephone [facility] [address] [place] [address] Kate Cesar MD Durable Medical Equipment ([employer]: Additional Info) 06/08/2024 Telephone [facility] [address] [place] [address] Kate Cesar MD Durable Medical Equipment (DME Order: CPAP Machine) 06/04/2024 Telephone [facility] [address] [place] [address] Kate Cesar MD Results 06/04/2024 Orders Only [facility] [address] [place] [address] Kate Cesar MD Obstructive sleep apnea (adult) (pediatric) (Primary Dx) 05/29/2024 Telephone [facility] [address] [place] [address] Kate Cesar MD Referral 05/22/2024 11:15 AM EDT Office Visit [facility] [address] [place] [address] Kate Cesar MD 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 right dominant side (CMS/HCC) (Primary Dx); Mixed hyperlipidemia; Dry eyes, bilateral; Bilateral hearing loss, unspecified hearing loss type; Hyperkeratosis; Chronic diastolic congestive heart failure (CMS/HCC); Pulmonary hypertension, unspecified (CMS/HCC) 05/22/2024 Travel 05/08/2024 10:00 AM EST Telemedicine [facility] MEDICINE [address] [place] [address] Kandy Linton, Sulema Generalized anxiety disorder (Primary Dx) 05/08/2024 Refill [facility] [address] [place] [address] Kate Cesar MD from Last 3 Months Immunizations Name Administration Dates Next Due Influenza Injectable Quadriv alant Preservative Free IIV4 MDCK 01/10/2022,12/30/2020,05/07/2019,2018 Influenza injectable quadriv alent IIV4 with preservative 01/10/2022,12/30/2020,05/07/2019,2018,01/06/2015 Influenza, seasonal, injecta ble, preservative free 12/30/2020,05/07/2019,04/14/2018 PPD Test 12/11/2022,09/15/2022 Pfizer Covid-19 Vaccine 12+ 09/08/2021 Pfizer Covid-19 Vaccine 12+ julio césar-sucrose (Schilling Cap) 09/08/2021 Family History Medical History Relation Name Comments Diabetes Brother Heart attack Brother Heart disease Father Hypertension Father Hypertension Mother Breast cancer Sister Relation Name Status Comments Brother Father Mother Sister Social History Tobacco Use Types Packs/Day Years Used Date Smoking Tobacco: Never Passive Smoke Exposure: Never Smokeless Tobacco: Never Tobacco Cessation:Counseling Given: Not Answered Alcohol Use Standard Drinks/Week Comments Never 0 [...] with others, in a hotel, in a nursing home, living outside on the street, on a [...] Orientation Straight 01/05/2022 7: 51 PM EDT Last Filed Vital Signs Vital Sign Reading Time Taken Comments Blood Pressure 140/73 05/22/2024 10:44 AM EDT Pulse 85 05/22/2024 10:44 AM EDT Temperature 36.3 ??C (97.4 ??F) 05/22/2024 10:44 AM E DT Respiratory Rate 16 03/24/2024 1:02 PM EST Oxygen Saturation 99% 05/22/2024 10:44 AM EDT Inhaled Oxygen Concentration - - Weight 126 kg (277 lb 8 oz) 05/22/2024 10:44 AM EDT Height 144.8 cm (4' 9 ) 05/22/2024 10:44 AM EDT Body Mass Index 60.05 05/22/2024 10:44 AM EDT Plan of Treatment Upcoming Encounters Date Type Department Care Team (Late st Contact Info) Description 09/10/2024 10:30 AM EDT Office Visit [facility] OPTOMETRY [address] [place] [address] Vicki Zapata, OD [address] [place] [address] 05/07/2025 10:00 AM EST Telemedicine [facility] MEDICINE [address] [place] [address] Health Maintenance Due Date Last Done Comments CT Colonography 1960 Colonoscopy 1960 Colorectal Cancer Screening 1960 FIT DNA/Cologuard 1958 FIT 1958 FOBT 1960 Sigmoidoscopy 1958 Alcohol/Substance Use Screening 1970 Hepatitis C Screening 1976 DTaP/Tdap/Td Vaccines (1 - Tdap) 1977 Pneumococcal Vaccine: 50+ Years (1 of 2 - PCV) 1977 Zoster Vaccines (1 of 2) 2008 RSV Patients and Patients Aged 60 years or older (1 - Risk 60-74 years 1-dose series) 2018 Mammogram 09/16/2023 09/15/2021, 0710/2021, 09/15/2021, Additional history exists COVID-19 Vaccine ( - season) 2023 09/08/2021, 09/08/2021 Influenza Vaccine (#1) 2023 , 01/10/2022, 12/30/2020, Additional history exists SDOH Screening 03/12/2025 03/12/2024 Depression Screening 03/24/2025 03/24/2024, 03/24/19 25 Tobacco Screening 05/22/2025 05/22/2024 Lipid Panel 03/24/2029 03/24/2024, 06/19/2021 Cervical Cancer Screening Discontinued HPV/Cotest Discontinued 11/04/2018 Pap Smear Discontinued 11/04/2018 HIB Vaccines Aged Out No longer eligi ble based on patient's age to complete this topic HPV Vaccines Aged Out No longer eligi ble based on patient's age to complete this topic Hepatitis A Vaccines Aged Out No long er eligible based on patient's age to complete this topic Hepatitis B Vaccines Aged Out No long er eligible based on patient's age to complete this topic IPV Vaccines Aged Out No longer eligi ble based on patient's age to complete this topic Meningococcal Vaccine Aged Out No blanca chelsea eligible based on patient's age to complete this topic RSV under 20 months Aged Out No longe r eligible based on patient's age to complete this topic Rotavirus Vaccines Aged Out No longer eligible based on patient's age to complete this topic Procedures Procedure Name Priority Date/Time Associated Diagnosis Comments XR CHEST 1 VIEW Routine 07/14/2024 11:50 AM EDT POLYSOMNOGRAM Routine 05/31/2024 Obstructive sleep apnea (adult) (pediatric) LIPID PANEL WITH REFLEX TO DIRECT LDL Routine 03/24/2024 1:04 PM EST Essential hypertension MAMMOGRAM GENERIC Routine 09/15/2021 2:2 6 PM EDT HPV DNA PROBE, AMPLIFIED Routine 11/04/2018 10:13 PM EDT LIQUID-BASED PAP TEST Routine 11/04/2018 10:13 PM EDT from Last 3 Months or Most Recently Relevant to Health Maintenance Results * XR Chest 1 View (07/14/2024 11:50 AM EDT) Anatomical Region Laterality Modality Chest Radiographic Alicia ging 07/14/2024 11:5 0 AM EDT Narrative 07/14/2024 12:43 PM EDT ? [facility] ?[address] ?[place] [address] ?XRay Report ? Signed ? Patient: Luevano,Alysa ?MR#: [id number] ?? 77 ? : 1960 ?Acct:[id number] ? Age/Sex: 63 / F ?ADM Date: 05/06/25 ? Loc: HO.ED ? Attending Dr: ? Ordering Physician: Rio Kwan MD ?? Date of Service: 07/14/24 ?? Procedure(s): XR chest 1V ?? Accession Number(s): [id number] ? cc: Kate Cesar MD; Rio Kwan [...] DD/ 1150 ? TD/TT: 07/14/24 1215 ? Evening Sitter: ? Procedure Note Gloria Beltrán - 07/14/2024 [place] [address] XRay Report Signed Patient: Charles Luevano#: [id number] 77 : 9Acct:[id number] Age/Sex: 63 / FADM Date: 07/14/24 Loc: HO.ED Attending Dr: Ordering Physician: Rio Kwan MD Date of Service: 07/14/24 Procedure(s): XR chest 1V Accession Number(s): [id number] cc: Kate Cesar MD; Rio Kwan MD [...] 07/14/24 1240 DD/ 1150 TD/TT: 07/14/24 1215 Evening Sitter: [facility] External Provider IMG XR PROCEDURES Final Result * Polysomnography (05/31/2024) Kate Cesar MD [facility] ORDERABLES Final Result * (ABNORMAL) Lipid Panel with Reflex to Direct LDL (03/24/2024 1:04 PM EST) Triglycerides 139 <150 mg/dL [facility] Comment:Slight Lipemia.Nigel able Triglyceride: less than 150 mg/dLBorderline High Triglyceride 150-199 mg/dLHigh Triglyceride: 200-499 mg/dLVery High Triglyceride: greater than or equal to 5OO mg/dL Cholesterol 179 <200 mg/dL [facility] Comment:Desirable Cholestero l: less than 200 mg/dLBorderline High Cholesterol: 200-239 mg/dLHigh Cholesterol: greater than 239 mg/dL LDL Cholesterol Calculated 111(H) <100 mg/dL [facility] Comment:Desirable LDL: less than 100 mg/dLNear Optimal/Above Optimal LDL: 110- 129 mg/dLBorderline High LDL: 130-159 mg/dLHigh LDL: 160-189 mg/dLVery High LDL: greater than or equal to 190 mg/dL HDL Cholesterol 41 >40 mg/dL [facility] Comment:Desirable HDL: great er than 40 mg/dL Note: This HDL assay may give artificially low results in patients with liver disease. Blood 03/24/2024 1:04 PM EST 03/24/2024 3:56 PM EST Kate Cesar MD LAB BLOOD ORDERABLES Fin al Result [facility] [address] [place] [address] [phone] * MAMMO BREAST JOSE JUAN ADDTL VIEW RIGHT (09/15/2021 2:26 PM EDT) Anatomical Region Laterality Modality Breast Bilateral Mammography 09/15/2021 2:26 PM EDT Narrative 09/16/2021 8:32 AM EDT Refer to [facility] for result details [facility] Procedure: MAMMO BREAST JOSE JUAN ADDTL VIEW RIGHT Procedure Note Provider, MD Erik - 06/03/2022 Refer to [facility] for result details [facility] Procedure: MAMMO BREAST JOSE JUAN ADDTL VIEW RIGHT us Agata Reza MD IMG BI PROCEDURES Final Resul t * Liquid-based Pap (11/04/2018 10:13 PM EDT) Other Findings FUNGAL ORGANISMS MORPHOLOGICALLY CONSISTENT WITH SD SPP [facility] HPV REFLEX? HPV High Risk Regardless [facility] CYTOLOGY CVX/VAG DOC CYTO NEGATIVE FOR INTRAEPITHELIAL LESION OR MALIGNANCY [facility] LAB AP EMBEDDED IMAGES [facility] Other Findings REACTIVE CELLULAR CHANGES ASSOCIATED WITH INFLAMMATION [facility] Additional Information The Pap test is a generally effective screening test for squamous cervical [facility] CYTOLOGY CVX/VAG DOC CYTO [facility] Other Findings TESTING FOR HIGH-RISK STRAINS OF HPV HAS BEEN REQUESTED ON THIS PATIENT [facility] Additional Information cancer and its precursors. However, both false negative and false [facility] LAB AP CASE REPORT Group [facility] Additional Information positive results occur. Results are most reliable when an adequate sample [facility] LAB AP CASE REPORT First Screen: Arlet Roman [facility] SH LAB AP STOCK HOUSE WORKER SPECIMEN ADEQUACY Satisfactory for evaluation, endocervical/trans formation zone component present [facility] Other Findings PLEASE REFER TO THE SEPARATE REPORT FOR THE HPV RESULT [facility] Additional Information is evaluated on a regular repetitive basis and clinically correlated. [facility] LAB AP CASE REPORT Pathologist: Amos Umanzor MD [facility] Additional Information Suspicious signs or symptoms may warrant follow-up studies regardless of [facility] Additional Information Pap test findings. [facility] CASE REPORT Specimen: Liquid-Based Pap, Screening, Vagina, Cloudy [facility] Additional Information [facility] Additional Information CPT 41517 [facility] LAB AP CASE REPORT Gynecologic Cytology Case: [id number] [facility] LAB AP CASE REPORT Authorizing Provider: Agata Reza MD Collected: 11/04/2018 2213 [facility] LAB AP CASE REPORT Ordering Location: [facility] Received: 11/04/2018 2213 [facility] Clinical Information Z01.419 Encounter for gynecological examination without abnormal finding [facility] Clinical Information [facility] 11/04/2018 10:1 3 PM EDT Agata Reza MD LAB CYTOLOGY ORDERABLES Final Result Performing Organization Address [facility] de Phone Number [facility] [address] * HPV DNA XXX Ql Amp Prb (11/04/2018 10:13 PM EDT) HPV18 DNA CVX QL PROBE+SIG AMP Negative Negative [facility] Comment:Testing did not dete ct the presence of high-risk HPV type 18. HPV I/H RISK 1 DNA CVX QL PROBE+SIG AMP Negative Negative [facility] Comment:Testing did not dete ct the presence of high risk HPV types: 31, 33, 35, 39, 45, 51, 52, 56, 58, 59, 66, 68. HPV16 DNA CVX QL PROBE+SIG AMP Negative Negative [facility] Comment:Testing did not dete ct the presence of high-risk HPV type 16. 11/04/2018 10:1 3 PM EDT Agata Reza MD LAB MICROBIOLOGY - GENERAL OR DERABLES Final Result Performing Organization Address [facility] Co de Phone Number [facility] [address] from Last 3 Months or Most Recently Relevant to Health Maintenance Insurance [employer] (HMO D-SNP) [place]AY[place] [id number] Care Teams Junior Bookkeeper Relationship Specialty Start Date End Date Kate Cesar MD [address] [place] [id number] PCP - General Internal Medicine 03/24/24
[2024-07-14 14:17] VITALS: BP 116/60; PULSE 103; RESP 18; TEMP 36; O2SAT 100
[2024-07-14 14:33] VITALS: BP 116/60; PULSE 103; RESP 18; TEMP 36; O2SAT 100
[2024-07-14 17:01] LABS: Alkaline Phosphatase 60 U/L (39-117)
== END 2024-07-14 14:33 | disposition home or self-care (01) ==
PROVIDERS: Emergency Provider Emergency Medicine; PCP Internal Medicine
DX: R07.9 Chest pain, unspecified (principal); Z79.899 Other long term (current) drug therapy
CPT/HCPCS: 36415; 71045; 80053; 84484; 85025; 93005; 99283; 99284

== ENCOUNTER → 2024-07-14 11:49 | Outpatient (BNV) | payer OTHER, SELFPAY | PROVIDERS: Emergency Provider Emergency Medicine; PCP Internal Medicine; Visit Provider Internal Medicine | DX: R07.9 Chest pain, unspecified (principal) | CPT/HCPCS: 93010 ==

== ENCOUNTER → 2024-07-14 11:50 | Outpatient (BNV) | payer OTHER, SELFPAY | PROVIDERS: Emergency Provider Emergency Medicine; PCP Internal Medicine; Visit Provider Radiology Diagnostic Radiology | DX: R07.9 Chest pain, unspecified (principal) | CPT/HCPCS: 71045 ==

== ENCOUNTER 2024-07-21 10:06 | Outpatient (REF) | payer OTHER, SELFPAY | END 2024-07-21 10:07 | disposition home or self-care (01) | LOC: HO.SH 10:06 | PROVIDERS: Visit Provider Internal Medicine | DX: Z01.118 Encounter for examination of ears and hearing with other abnormal findings (principal); H90.6 Mixed conductive and sensorineural hearing loss, bilateral | CPT/HCPCS: 92557; 92567 ==

== ENCOUNTER 2024-09-08 10:43 | Outpatient (AMB) | payer OTHER, SELFPAY ==
--- NOTE | 2024-09-08 10:51 | A.OFFVIS_ITS ---
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,pulmonary htn Brush Filler Hand Required: No Brush Filler Hand Services: Brush Filler Hand Offered & Declined Brush Filler Hand Name: son Accompanied by: son Allergies aspirin (Aspirin) Allergy (Mild, Verified 07/14/24 11:34) SWELLING, facial swelling, redness Sulfa (Sulfonamide Antibiotics) (Sulfa (Sulfonamides)) Allergy (Mild, Verified 07/14/24 11:34) SWELLING, facial swelling, redness shrimp Allergy (Verified 07/14/24 11:34) Unknown Medication List - Last Reconciled 09/08/24 by Gio Guerrero MD acetaminophen 500 mg PO Q6H PRN atorvastatin 40 mg PO BEDTIME chlorthalidone 25 mg PO DAILY cholecalciferol (vitamin D3) (Vitamin D3) 125 mcg PO DAILY clopidogrel 75 mg PO DAILY lisinopril 20 mg (1/2 x 40 mg) PO DAILY meclizine 12.5 mg PO TID omeprazole 20 mg PO DAILY@0630 verapamil ER 240 mg PO BEDTIME HPI Comments Details: Alysa has been referred for cardiac evaluation. There is mention of congestive heart failure as the reason for referral. However, patient denies any previous cardiac history including coronary disease or myocardial infarction or cardiomyopathy extra. Apparently, she had a stroke few years back and treated elsewhere and we do not have any records. She has some right-sided w eakness related to that. Walks with a walker. Within limits of her activity, she has not experienced any clear-cut anginal-type chest pains. She also denies any shortness of breath but rather just describes tiredness with exertion. No significant leg swelling. On meds for hypertension and dyslipidemia. [facility] Medical History (Updated 09/08/24 @ 11:41 by Gio Guerrero MD) Hyperkeratosis Bilateral hearing loss Dry eyes, bilateral Superficial thrombosis of right lower extremity Gastritis History of endometrial cancer Personal history of stroke with residual effects Other lack of coordination Muscle wasting and atrophy, not elsewhere classified, multiple sites Peripheral vascular disease, unspecified Primary generalized (osteo)arthritis Migraine, unspecified, not intractable, without status migrainosus Cerebrovascular accident (CVA) due to embolism of left middle cerebral artery Morbid obesity with BMI of 50.0-59.9, adult 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 right dominant side Allergic rhinitis TIA (transient ischemic attack) Pulmonary hypertension Ischemic stroke Chronic diastolic (congestive) heart failure GERD (gastroesophageal reflux disease) Anxiety associated with depression Unstable gait 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 TEDDY (obstructive sleep apnea) Moderate persistent asthma without complication Lacunar infarct, acute Mood disorder Mixed hyperlipidemia Essential hypertension UTI (urinary tract infection) CVA (cerebral vascular accident) Family History (Updated 09/08/24 @ 11:32 by Olivia Moss MA) Mother Hypertension Father Hypertension Heart disease Sister Breast cancer Brother Diabetes Heart attack Social History (Updated 09/08/24 @ 10:56 by Anaya Luevano [facility]) Household Members: Family Housing: Assisted Living Facility Do you presently have visiting nurse or other home services: No Alcohol intake: never Patient Tobacco Use Status: Never used Tobacco Second Hand Smoke Exposure: No service: No Current occupational status: disabled Review of Systems Const Denies chills, Denies fatigue, Denies fever(s), Denies frequent falls, Denies weakness, Denies weight gain and Denies weight loss ENT Denies dizziness Card Denies chest pain, Denies leg edema, Denies lightheadedness, Denies palpitations, Denies dyspnea, Denies dyspnea on exertion and Denies orthopnea Resp Denies cough, Denies dyspnea and Denies dyspnea on exertion GI Denies bloating and Denies change in bowel habits Musc Denies muscle weakness, Denies numbness and Denies tingling Neuro Denies dizziness, Denies frequent falls, Denies numbness, Denies tingling and Denies weakness Endo Denies fatigue and Denies palpitations Physical Exam Vital Signs: Last Vital Signs Pulse 80 09/08/24 10:54 BP 136/72 09/08/24 10:54 BMI result Body Mass Index 44.4 Const General: comfortable and no acute distress Orientation/consciousness: patient oriented x3 HEENT Other: Unremarkable Head: Yes normal to inspection Neck Neck: Yes normal visual inspection Chest Chest palpation & inspection: normal inspection of the chest Resp Auscultation: clear to auscultation bilaterally Cardio Palpation: normal PMI Heart sounds: S1 normal heart sound present, S2 normal heart sound present, no gallops, no murmurs and no rubs GI Palpation (GI): Soft to palpation Back/Spine/Pelvis Other: unremarkable Skin General skin exam: no rashes or lesions noted Neuro General: patient oriented x3 Extrem General: Yes normal to inspection Psych Mental Status: mental status grossly normal Office Procedures EKG Details: EKG with underlying sinus rhythm at 80/Min; no ischemic changes; [place] [address]-[id number], Complete Assessment & Plan Assessment & Plan (1) CHF (congestive heart failure): Code(s): I50.9 - Heart failure, unspecified Category: Medical Plan CHF/pulmonary hypertension per PCP note. Baseline EKGs unremarkable. Multiple prior EKGs are within normal limits. Multiple prior high sensitivity troponins are within normal range. Cardiac BNP is also normal at 28. In a prior echocardiogram, preserved LVEF with mild diastolic dysfunction and no significant valvular findings and no evidence of pulmonary hypertension. We can recheck the study. If any clear abnormalities identified, then can make recommendations. Otherwise, no med changes for now. Discussed with nephew who also acted as literature professor. Orders: Orders CA echo transthoracic complete Today I50.9 - Heart failure, unspecified Coding Level of Care Code New Pt Level 3 (44669) Diagnoses CHF (congestive heart failure) I50.9 CPT Codes EKG - CPT: 84004-[id number], Complete ([id number])
[2024-09-08 10:54] VITALS: BP 136/72; PULSE 80; BMI 44.4
--- OUTSIDE RECORDS SUMMARY | 2024-09-08 11:55 | XMS_ITS | Encounter Summary ---
Author Organization [employer] Address [address] [place] [address] [address] [place] [address] Care Team Providers Care Ssis Architect Name Role Phone Massiel Nelson [facility] Primary Care Provider Anna Garcia MD Primary Care Provider [phone] Kate Cesar MD Primary Care Provider + Encounter Details Date Type Department Care Team (Late st Contact Info) Description 04/02/2022 Orders Only HF [facility] PRIMARY/PEDS [address] [facility], [address] [place] [id number] AnitaRoxanne langley, PNEUMATIC TUBE REPAIRER [address] [facility] [address] [place] [id number] Social History Tobacco Use Types Packs/Day Years [...] Description 09/10/2024 10:30 AM EDT Office Visit [facility] [address] [place] [id number] Vicki Zapata, OD [address] [place] [address] 09/14/2024 11:00 AM EDT Nutrition C DIABETES/NUTRITION [address] [place] [address] Ethel Cantu, RD [address] [place] [address] documented as of this encounter Visit Diagnoses Not on filedocumented in this encounter Care Teams Ssis Architect Relationship Specialty Start Date End Date Massiel Nelson FNP- PCP - General 03/24/22 06/09/23 Anna Parnell MD [address] [place] [id number] PCP - General Internal Medicine 06/10/23 10/31/23 Kate Cesar MD [address] [place] [address] PCP - General Internal Medicine 03/24/24 documented as of this encounter
== END 2024-09-08 12:49 | disposition home or self-care (01) ==
LOC: HO.HCS 10:43
PROVIDERS: PCP Nurse Practitioner Family; Visit Provider Internal Medicine
DX: I50.9 Heart failure, unspecified (principal)
CPT/HCPCS: 93010; 99213

== ENCOUNTER → 2024-09-08 10:43 | Outpatient (BNVA) | payer OTHER, SELFPAY | PROVIDERS: PCP Nurse Practitioner Family; Visit Provider Internal Medicine | DX: I10 Essential (primary) hypertension (principal); I50.9 Heart failure, unspecified; E78.5 Hyperlipidemia, unspecified | CPT/HCPCS: 93005; 99212 ==

== ENCOUNTER 2024-09-09 11:33 | Outpatient (AMB) | payer OTHER, SELFPAY ==
--- NOTE | 2024-09-09 11:57 | A.OFFVIS_ITS ---
Intake Visit Reasons: S/P CVA, LT. MCA RT. hemplega Allergies aspirin (Aspirin) Allergy (Mild, Verified 07/14/24 11:34) SWELLING, facial swelling, redness Sulfa (Sulfonamide Antibiotics) (Sulfa (Sulfonamides)) Allergy (Mild, Verified 07/14/24 11:34) SWELLING, facial swelling, redness shrimp Allergy (Verified 07/14/24 11:34) Unknown Medication List - Last Reconciled 09/09/24 by Dolores Sarah MD acetaminophen 500 mg PO Q6H PRN atorvastatin 40 mg PO BEDTIME chlorthalidone 25 mg PO DAILY cholecalciferol (vitamin D3) (Vitamin D3) 125 mcg PO DAILY clopidogrel 75 mg PO DAILY lisinopril 40 mg PO DAILY meclizine 12.5 mg PO TID pantoprazole 20 mg PO DAILY verapamil ER 240 mg PO BEDTIME HPI Comments Details: This is a 63-year-old right-handed woman with a history of hypertension and hyperlipidemia who had a stroke about 3 years ago affecting the right side with some mild right-sided weakness so that she gets around with a wheeled walker. About 3 months earlier, she had a change in symptoms that came on suddenly with the entire right side feeling a little bit weaker with a squeezing sensation that goes from the top of the head all the way down the face arm and leg. There has been no change in the symptoms in the last 3 months. There is no loss of sensitivity. She feels it is little bit weaker than what it was from the previous stroke. There is no impairment of her speech. [facility] Medical History (Updated 09/09/24 @ 12:17 by Dolores Sarah MD) Hyperkeratosis Bilateral hearing loss Dry eyes, bilateral Superficial thrombosis of right lower extremity Gastritis History of endometrial cancer Personal history of stroke with residual effects Other lack of coordination Muscle wasting and atrophy, not elsewhere classified, multiple sites Peripheral vascular disease, unspecified Primary generalized (osteo)arthritis Migraine, unspecified, not intractable, without status migrainosus Cerebrovascular accident (CVA) due to embolism of left middle cerebral artery Morbid obesity with BMI of 50.0-59.9, adult 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 right dominant side Allergic rhinitis TIA (transient ischemic attack) Pulmonary hypertension Ischemic stroke Chronic diastolic (congestive) heart failure GERD (gastroesophageal reflux disease) Anxiety associated with depression Unstable gait 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 TEDDY (obstructive sleep apnea) Moderate persistent asthma without complication Lacunar infarct, acute Mood disorder Mixed hyperlipidemia Essential hypertension UTI (urinary tract infection) CVA (cerebral vascular accident) Family History (Updated 09/08/24 @ 11:32 by Olivia Moss MA) Mother Hypertension Father Hypertension Heart disease Sister Breast cancer Brother Diabetes Heart attack Social History (Updated 09/08/24 @ 10:56 by Anaya Luevano [facility]) Household Members: Family Housing: Assisted Living Facility Do you presently have visiting nurse or other home services: No Alcohol intake: never Patient Tobacco Use Status: Never used Tobacco Second Hand Smoke Exposure: No service: No Current occupational status: disabled Review of Systems Const Details: Sleep Difficulty getting to sleep??denies.??Difficulty maintaining sleep??denies?.??Urge to move legs??denies.?? Teeth grinding??denies.??Shouting or Kicking during sleep??denies.??Abnormal behavior during sleep??denies.?? Excessive sleep??denies.??Snoring??denies.??Daytime sleepiness??denies.? General/Constitutional Change in appetite??denies.?? Chills??denies.??Fatigue??denies.??Fever??denies.??Weight gain??denies.??Weight loss??denies.? Ophthalmologic Blurred vision??denies.??Diminished visual acuity??denies.? ENT Stuffiness??denies.??Decreased hearing??denies.??Dry mouth??denies.??Ear pain??denies.??Nosebleed??denies.?? Ringing in the ears??denies.??Sinus pain??denies.??Sore throat??denies.??Swollen glands??denies.? Endocrine Cold intolerance??denies.??Excessive thirst??denies.??Frequent urination??denies.??Heat intolerance??denies.? Respiratory Shortness of breath??denies.??Chest pain??denies.??Cough??denies.? Breast Breast lump??denies.??Nipple discharge??denies.? Cardiovascular Chest pain at rest??denies.??Chest pain with exertion??denies.??Claudication??denies.??Dizziness??denies.??Fluid accumulation in the legs??denies.??Irregular heartbeat??denies.??Palpitations??denies.? Gastrointestinal Abdominal pain??denies.??Constipation??denies.??Diarrhea??denies.?? Difficulty swallowing??denies.??Heartburn??denies.??Nausea??denies.??Rectal bleeding??denies.? Hematology Easy bruising??denies.??Prolonged bleeding??denies.? Genitourinary Frequent urination??denies.??Urgency??denies.??Incontinence??denies.??Erectile Dysfunction??denies.? Musculoskeletal Neck pain??denies.??Back pain??denies.??Muscle aches??denies.??Painful joints??denies.??Sciatica??denies.??Weakness??right side.? Podiatric Difficulty walking??denies.??Foot numbness??denies.? Neurologic Difficulty swallowing??denies.??Balance difficulty??denies.??Coordin ation??normal.? Difficulty speaking??denies.??Dizziness??denies.??Fainting??denies.??Gait abnormality??walker.??Headache??denies.? Loss of strength??denies.??Loss of use of extremity??denies.??Low back pain??denies.?? Memory loss??denies.??Seizures??denies.??Tics??denies.??Tingling/Numbness??denies.??Tra nsient loss of vision??denies.??Tremor??denies.? Psychiatric Anxiety??denies.??Auditory/visual hallucinations??denies.??Delusions??denies.??Depressed mood??denies.??Stressors??denies.??Substance abuse??denies.??Suicidal thoughts??denies. Physical Exam Neuro Other: Abnormal neurological findings:??Mild pronation drift of the right upper extremity. Mild right upper extremity weakness and right lower extremity weakness graded at 4+ to V minus/5. Reflexes are symmetrical. No sensory deficit. Plantar responses are flexor. she walks with a wheeled walker .? Mental Status:?alert and oriented X 3,?Normal attention, orientation, memory and affect.? Cranial Nerves:?Pupils are equal, round and reactive to light. Fundoscopy shows normal disc bilaterally. External ocular muscles are intact. Visual urbina are full, no ptosis. Face is symmetrical, no facial weakness or droop. Facial sensations are normal. Tongue protrudes in midline. Palate elevates symmetrically. Shoulder shrugging is normal..? Motor Examination:? Mild right-sided weakness as described above, left side with Normal muscle tone, bulk and strength,?No atrophy or fasciculations,?No drift of the extended upper extremities,?Deep tendon reflexes are 2+,?Plantars are flexor?.? Straight Leg Raising:?90 degrees.? Sensory Exam:?Normal light touch, temperature, pinprick, vibration and joint- position sensations?,?Rhomberg sign is absent.? Coordination:?no ataxia,?no titubation,?juogzp-yo-ggvu, rvcq-hwak-oykx test and rapid alternating movements were normal.? Gait Exam:?Walker Cerebellar Signs:?Eatdpb-gu-lypo and pfsa-ke-hceb is normal,?no dysdiadochokinesia?.? Extrapyramidal System:?No tremor, rigidity with normal facial expressions,?No bradykinesia, no bradyphrenia. Normal arm swing and posture. No propulsion or retropulsion.? Speech:?Normal,?no dysphasia or dysarthria.. Mini Mental Status Exam Level of Consciousness:?Alert.? Orientation:?Knows correct year, month, date, day and season,?Knows correct city, county and state. Knows correct location and floor.? Registration:?Able to register 3 objects.? Attention:?Serial 7's performed accurately.? Recall:?Able to recall 3 out of 3 objects.? Language:?Normal spontaneous speech, fluency, repetition, ,naming, comprehension, reading and writing.? Total Score:?30/30. Assessment & Plan Assessment & Plan (1) Right sided weakness: Code(s): R53.1 - Weakness Category: Medical (2) Lacunar infarct, acute: Code(s): I63.81 - Other cerebral infarction due to occlusion or stenosis of small artery Category: Medical Plan MRI brain to see if there is a new stroke. Continue current meds. Orders: Orders MR brain wo con w neuroquant Today Dolores Sarah MD I63.81 - Other cerebral infarction due to occlusion or stenosis of small artery, R53.1 - Weakness Medications: Changed From lisinopril 20 mg (1/2 x 40 mg) PO DAILY 30 tabs 0RF To lisinopril 40 mg PO DAILY Marie Anne MD Coding Level of Care Code New Pt Level 5 (39340) Diagnoses Right sided weakness R53.1 Lacunar infarct, acute I63.81
== END 2024-09-09 12:22 | disposition home or self-care (01) ==
LOC: HO.HSM 11:33
PROVIDERS: PCP Internal Medicine; Visit Provider Psychiatry & Neurology Neurology
DX: R53.1 Weakness (principal); I63.81 Other cerebral infarction due to occlusion or stenosis of small artery
CPT/HCPCS: 99204

== ENCOUNTER → 2024-09-09 11:33 | Outpatient (BNVA) | payer OTHER, SELFPAY | PROVIDERS: PCP Internal Medicine; Visit Provider Psychiatry & Neurology Neurology | DX: R53.1 Weakness (principal); I63.81 Other cerebral infarction due to occlusion or stenosis of small artery | CPT/HCPCS: 99202 ==

== ENCOUNTER 2024-09-28 11:45 | Emergency (ER) | payer OTHER, SELFPAY ==
--- NOTE | ~2024-09-28 | CT_ITS ---
EXAMINATION: CT ANGIOGRAM HEAD AND NECK CLINICAL INFORMATION: Dizziness, rule out stroke. COMPARISON: February 26, 2024. TECHNIQUE: Noncontrast axial imaging of the head was performed. This was followed by test bolus sequences and head and neck intravenous bolus administration 70mL of Omnipaque 350. Helical imaging was performed in the axial plane from the aortic arch to the skull vertex. The data was processed at the radiology technologist's workstation for generation of MIP sequences. Angled MIPs and volume rendered reformatted images were also generated at an offline 3D workstation. Stenoses are assessed in accordance with NASCET criteria unless otherwise indicated. This CT examination was performed using dose optimization techniques as appropriate, variously including the following: *Automated exposure control *Adjustment of mA and/or kV according to patient size (this includes techniques or standardized protocols for targeted exams where dose is matched to indication/reason for exam; i.e. extremities or head) *Use of iterative reconstruction technique DLP: 1417 mGy*cm FINDINGS: NONCONTRAST HEAD CT: There is no evidence of intracranial hemorrhage or extra-axial fluid collection. There is no mass effect, or edema. No CT evidence of acute territorial infarct. Ventricles, sulci, and cisterns are normal in size and configuration for patient age. No hydrocephalus. No midline shift. No significant white matter abnormalities. Globes and orbital contents image normally. No extracranial soft tissue abnormalities. The paranasal sinuses, mastoid air cells, and tympanic cavities are normally aerated. No suspicious bony abnormalities. NECK CTA: -AORTIC ARCH: Normal in caliber. Mild atheromatous calcification. Three-vessel branching pattern. -GREAT VESSEL ORIGINS: Widely patent. No hemodynamically significant stenosis. -RIGHT COMMON CAROTID ARTERY: Origin is obscured by beam hardening artifact. Normal in course and caliber to the level of the bifurcation. -CERVICAL RIGHT INTERNAL CAROTID ARTERY: Normal opacification without focal stenosis or occlusion. -LEFT COMMON CAROTID ARTERY: Normal in course and caliber to the level of the bifurcation. -CERVICAL LEFT INTERNAL CAROTID ARTERY: Mild calcific atherosclerotic disease of the carotid bulb. There is no hemodynamically significant stenosis. -CERVICAL RIGHT VERTEBRAL ARTERY: Codominant. Normal in course and caliber into the skull base. -CERVICAL LEFT VERTEBRAL ARTERY: Codominant. Normal in course and caliber into the skull base. OTHER, SOFT TISSUES: -No lymphadenopathy or mass. No abnormal fluid collection or soft tissue swelling. -Normal thyroid. -Imaged superior mediastinal structures normal. -Imaged lung apices clear. CTA OF THE BRAIN: -INTRACRANIAL INTERNAL CAROTID ARTERIES: No focal stenosis or occlusion. Mild multifocal atherosclerotic calcifications are present. -RIGHT ANTERIOR CEREBRAL ARTERY: Normal A1 segment.. Normal arborization of the distal segments. -LEFT ANTERIOR CEREBRAL ARTERY: Normal A1 segment.. Normal arborization of the distal segments. -RIGHT MIDDLE CEREBRAL ARTERY: Normal M1 segment of the MCA without focal stenosis or occlusion. Normal arborization of the distal segments. -LEFT MIDDLE CEREBRAL ARTERY: Normal M1 segment of the MCA without focal stenosis or occlusion. Normal arborization of the distal segments. -RIGHT VERTEBRAL ARTERY V4: Normal in course and caliber. Normal PICA branch. -LEFT VERTEBRAL ARTERY V4: Normal in course and caliber. Normal PICA branch. -BASILAR ARTERY: Normal without focal stenosis or occlusion. Normal appearance of the proximal superior cerebellar arteries. Normal basilar tip. -RIGHT POSTERIOR CEREBRAL ARTERY: Normal P1 segment. Normal opacification of the distal [employer] segments. -LEFT POSTERIOR CEREBRAL ARTERY: The P1 segment is diminutive. There is opacification of the distal [employer]ER OPERATOR segments. -POSTERIOR COMMUNICATING ARTERIES: Present and small on the right greater than left. CT/CT angio head neck IMPRESSION: NONCONTRAST HEAD CT: 1. No intracranial hemorrhage or mass effect. No CT evidence of acute territorial infarct. CTA NECK: No hemodynamically significant stenosis. CTA HEAD: No hemodynamically significant stenosis. Communication sent to GRETCHEN Winter at 14:06 ET Electronically signed by: Chang Del Cid MD 09/28/2024 02:06 PM EDT
--- NOTE | 2024-09-28 11:52 | ECG_ITS ---
Test Reason : cp Blood Pressure : */* mmHG Vent. Rate : 76 BPM Atrial Rate : 76 BPM P-R Int : 126 ms QRS Dur : 82 ms QT Int : 382 ms P-R-T Axes : 46 3 22 degrees QTcB Int : 429 ms Normal sinus rhythm Normal ECG When compared with ECG of 14-Jul-2024 11:39, No significant change was found Referred By: Generic ED Physician Electronically Signed By: Charles Sosa
[2024-09-28 11:57] VITALS: BP 147/48; BP 187/88; PULSE 80; PULSE 86; RESP 19; TEMP 36.6; O2SAT 95; BMI 44.6
--- NOTE | 2024-09-28 12:20 | ED_ITS ---
HPI - Weakness General Chief complaint: Dizziness Stated complaint: CP,SOB,DIZZY PER EMS Time Seen by Provider: 09/28/24 12:02 Source: patient, RN notes reviewed, old records reviewed and state farm agent team member Mode of arrival: EMS Limitations: language barrier and physical limitation History of Present Illness ED Provider: Dariela Nichols PA-C HPI Narrative: 63-year-old female with history of CVA in 2021 that affected her right side resulting in residual weakness in both her right upper and right lower limb presenting to the emergency department today for paresthesias of the same area. She states it has been intermittent over the last several days. She has been going to physical therapy for this for the past month and always seems to get worse after going to PT. she goes 3 times a week on Wednesdays and Fridays. As patient woke up today she was not able to eat breakfast sandwich straight to physical therapy. She was doing lower extremity exercises and then when she switched over to do the upper extremity exercises while pushing and pulling she started to experience the onset of the paresthesias again in both her right upper and right lower extremity. She denies any recent falls or trauma but does report over a year ago having a fall which resulted in right hip pain for which always bothers her. This is the reason that she was referred to physical therapy by her PCP. Patient is denying any dizziness or headaches no worsening weakness and denies any difficulty with smiling or formulating words. She is Swazi-speaking only a formal foreign languages professor at bedside was utilized. Patient uses a wheeled walker at baseline to ambulate Patient is on anticoagulation and has not missed any doses. She has seen a neurologist who referred her for ultrasounds of her carotids and of her heart for which she said was x-rays. I with a sign amount of time she intermittently has experienced central chest discomfort that lasts for several sec both at rest and with movement it is not worsened by lying down flat versus sitting or by food. Patient felt dizzy when the paresthesias came on she is not a currently endorsing this and still has not ate today. This is not typical of her. Neurology note in [facility] was reviewed dated 19 days ago seen by Dr. Sarah via [facility]. Reason for visit was status post CVA/left-sided MCA/right-sided hemiplegia. 3 months earlier, she had a change in symptoms that came on suddenly with the entire right side feeling a little bit weaker with a squeezing sensation that goes from the top of the head all the way down the face arm and leg. There has been no change in the symptoms in the last 3 months. There is no loss of sensitivity. She feels it is little bit weaker than what it was from the previous stroke. There is no impairment of her speech. At this visit neurologist noted right pronator sided drift that was mild with weakness in both the right upper and right lower extremity with no sensory deficit. He ordered an outpatient MRI brain without contrast to see if there was a new stroke she has not had this done yet Related Data Home Medications ?Medication ?Instructions ?Recorded ?Confirmed atorvastatin 40 mg tablet 40 mg PO BEDTIME 08/06/22 cholecalciferol (vitamin D3) 125 125 mcg PO DAILY 07/1009/28/24 mcg (5,000 unit) tablet (Vitamin D3) clopidogrel 75 mg tablet 75 mg PO DAILY 08/06/2209/09 meclizine 12.5 mg tablet 12.5 mg PO TID PRN Dizziness Or 08/06/22 09/28/24 Vertigo chlorthalidone 25 mg tablet 25 mg PO DAILY 02/26/24 verapamil 240 mg tablet,extended 240 mg PO BEDTIME 09/28/24 release lisinopril 40 mg tablet 40 mg PO DAILY 09/09/2409/09 pantoprazole 20 mg tablet,delayed 20 mg PO DAILY@0630 09/09/24 09/28/24 release acetaminophen 325 mg tablet 325 mg PO Q6H PRN Pain 09/28/24 Allergies Allergy/AdvReac Type Severity Reaction Status Date / Time aspirin (Aspirin) Allergy Mild SWELLING, Verified 09/28/24 12:00 facial swelling, redness Sulfa (Sulfonamide Allergy Mild SWELLING, Verified 09/28/24 12:00 Antibiotics) (Sulfa facial (Sulfonamides)) swelling, redness shrimp Allergy Unknown Verified 09/28/24 12:00 Review of Systems 2 ENT: Reports Normal hearing present Neurologic: Reports Normal hearing present and Reports Sensory deficit (Neuro) (Decreased light sensation of the right lower extremity and right upper arm ) [facility] Past Medical History Medical History Hyperkeratosis Bilateral hearing loss Dry eyes, bilateral Superficial thrombosis of right lower extremity Gastritis History of endometrial cancer Personal history of stroke with residual effects Other lack of coordination Muscle wasting and atrophy, not elsewhere classified, multiple sites Peripheral vascular disease, unspecified Primary generalized (osteo)arthritis Migraine, unspecified, not intractable, without status migrainosus Cerebrovascular accident (CVA) due to embolism of left middle cerebral artery Morbid obesity with BMI of 50.0-59.9, adult 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 right dominant side Allergic rhinitis TIA (transient ischemic attack) Pulmonary hypertension Ischemic stroke Chronic diastolic (congestive) heart failure GERD (gastroesophageal reflux disease) Anxiety associated with depression Unstable gait 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 TEDDY (obstructive sleep apnea) Moderate persistent asthma without complication Lacunar infarct, acute Mood disorder Mixed hyperlipidemia Essential hypertension UTI (urinary tract infection) CVA (cerebral vascular accident) Family History Family History (Updated 09/08/24 @ 11:32 by Olivia Moss MA) Mother Hypertension Father Hypertension Heart disease Sister Breast cancer Brother Diabetes Heart attack Social History Social History (Updated 09/08/24 @ 10:56 by Anaya Luevano CMA) Household Members: Family Housing: Assisted Living Facility Do you presently have visiting nurse or other home services: No Alcohol intake: never Patient Tobacco Use Status: Never used Tobacco Smoked in Last 30 Days: No Second Hand Smoke Exposure: No Use of substances other than those prescribed or required for medical reasons: No Advance Directives: No Advance Directives Information Provided: Yes Do you have a plan to hurt others: No Plan service: No Current occupational status: disabled Physical Exam 2 Vital Signs: Vital Signs: Last Vital Signs Temp 98.9 F 09/29/24 10:53 Pulse 73 09/29/24 10:53 Resp 15 09/29/24 10:53 BP 95/44 L 09/29/24 10:53 Pulse Ox 97 09/29/24 10:53 O2 Del Method Room Air 09/29/24 10:53 BMI result Body Mass Index 44.6 Const: General: cooperative, comfortable, no acute distress, well developed, alert, awake and Physically active Nutritional Appearance: obese O rientation/consciousness: patient oriented x3 Limitations: language barrier, physical limitations and ambulation with walker HEENT: Head: Yes normal to inspection Ears: hearing grossly normal bilaterally General nose exam: Normal external nose present Face and sinus: Yes normal facial exam Mouth: Normal oral and palatal mucosa present, lip normal and tongue normal Throat: Yes posterior oropharynx normal Eyes: General: appearance normal, both eyes and all related structures A lignment and Position: alignment normal Periorbital: periorbital findings normal Eyelids: Yes eyelids normal Conjunctivae: conjunctivae normal S clerae: sclerae normal Corneas: corneas normal Pupils: Equal, round and reactive pupils present EOM: EOMs intact bilaterally Neck: Neck: Yes normal visual inspection, Yes full ROM, Yes no lymphadenopathy, Yes no meningeal signs, Yes trachea midline and Yes supple C arotids: normal carotid upstroke Lymphatic: no lymphadenopathy noted Chest: Chest palpation & inspection: normal inspection of the chest Resp: Effort & Inspection: normal respiratory effort and able to speak in complete sentences Auscultation: clear to auscultation bilaterally (Decreased breath sounds bilateral lower lobes however secondary to body hab) Cardio: Jugular venous distension: no JVD Rate: regular rate Rhythm: r egular rhythm GI: Inspection: Yes normal to inspection Palpation (GI): Soft to palpation and Other GI palpation findings present (Obese abdomen limited exam) Skin: General skin exam: no rashes or lesions noted and elasticity normal Neuro: General: patient oriented x3, no meningeal signs and Unable to assess gait Cranial nerves: Yes CN's II-XII intact bilaterally, Yes Facial sensation intact/muscles of mastication intact, Yes Equal, round and reactive pupils present, Yes Normal accommodation reflex present, Yes Bilaterally intact EOM present, Yes Nystagmus not present, Yes Normal facial strength present, Yes Midline tongue present, Yes Symmetric palate elevation present, Yes Normal hearing present, Yes Ability to bilaterally rotate head present and Yes Ability to bilaterally elevate shoulders present Cognition (Neuro): normal cognition Gait exam (Neuro): Unable to assess gait Motor exam (neuro): no tremor noted, no asterixis, Motor fasciculations not present, Normal motor muscle tone present throughout, Pronator motor function present pronator drift of right upper extremity (mild) and Other motor observations present (Strength 3+ right side of upper and lower left side 4+) Sensory Exam: Sensory deficit (Neuro) (Decreased light sensation of the right lower extremity and right upper arm ) Course Course Course Narrative: 09/29/24 09:40 KARINA Fajardo: Physician observation continued. Short-term rehab recommended by physical therapy. Case management following for disposition. Diet ordered. 09/29/24 14:17 Per Yoli from , patient will discharge to [facility] for STR. Observation care revealed that patient does not meet medical necessity for hospitalization. Final disposition discussed with patient. The patient completed observation care at 1530 on 09/29/24. Medications Administered Generic Name Dose Route Start Last Admin Trade Name Ney PRN Reason Stop Dose Admin Atorvastatin Calcium 40 mg 09/28/24 21:00 09/28/24 21:29 Atorvastatin Calcium 40 Mg Tablet PO 40 mg BEDTIME LONG Administration Clopidogrel Bisulfate 75 mg 09/28/24 20:45 09/29/24 08:56 Clopidogrel Bisulfate 75 Mg Tablet PO 75 mg DAILY LONG Administration Hydrochlorothiazide 25 mg 09/29/24 09:00 09/29/24 08:56 Hydrochlorothiazide 25 Mg Tablet PO 25 mg DAILY LONG Administration Lisinopril 40 mg 09/28/24 20:45 09/29/24 08:56 Lisinopril 40 Mg Tablet PO 40 mg DAILY LONG Administration Protocol Pantoprazole Sodium 20 mg 09/29/24 06:30 09/29/24 08:56 Pantoprazole Sodium 20 Mg Tablet.Dr PO 20 mg DAILY@0630 LONG Administration Verapamil HCl 240 mg 09/28/24 21:00 09/28/24 21:29 Verapamil Hcl Sr 240 Mg Tablet.Er PO 240 mg BEDTIME LONG Administration Protocol Vitamin D 125 mcg 09/28/24 20:45 09/29/24 08:56 Cholecalciferol (Vitamin D3) 25 Mcg Tablet PO 125 mcg DAILY LONG Administration Discontinued Medications Generic Name Dose Route Start Last Admin Trade Name Ney PRN Reason Stop Dose Admin Sodium Chloride 1,000 mls @ 999 mls/hr 09/28/24 12:27 09/28/24 13:34 Ns IV 09/28/24 13:27 Infused .Q1H1M ONE Infusion Iohexol 100 ml 09/28/24 13:30 09/28/24 13:31 Iohexol 350 Mg/Ml 100 Ml Infus..Btl IV 09/28/24 13:31 70 ml ONCE ONE Administration Nitrofurantoin Macrocrystals 100 mg 09/28/24 16:05 09/28/24 16:36 Nitrofurantoin Monohyd/M-Cryst 100 Mg Capsule PO 09/28/24 16:06 100 mg ONCE ONE Administration Medical Decision Making Medical Decision Making [facility] Narrative: Well-appearing 63-year-old female with history of CVA in 2021 resulting in right-sided residual limb weakness presenting to the emergency department today for worsening paresthesias of the side. Upon arrival to ED patient is afebrile a and O x4 with a GCS of 15. A formal in-person foreign languages professor was utilized. There appears to be no evidence of respiratory or cardiac distress. She does have a mild pronator drift on the right side with residual right-sided weakness which in comparison to my exam to the neurologist exam from 3 weeks ago is the same. His plan was to order an MRI to see if there is a new stroke. As onset is greater than 24 hours stroke protocol was not initiated no code called. Patient is denying any infectious symptoms and no new falls or trauma. She has already established in physical therapy for this. CTA of the head and neck was ordered in lieu of this with basic labs. She does not appear to be exhibiting acute stroke syndrome. Atypical presentation but given her age and her sort of new onset of weakness we will also screen for potential UTI Patient re-evaluated at bedside her physical exam does not show any findings that seem any different from what her baseline weakness is in her right arm and right leg. CTA of the head and neck are largely unremarkable IMPRESSION: NONCONTRAST HEAD CT: 1. No intracranial hemorrhage or mass effect. No CT evidence of acute territorial infarct. CTA NECK: No hemodynamically significant stenosis. CTA HEAD: No hemodynamically significant stenosis. Labs show baseline microcytic anemia or other significant electrolyte imbalance, borderline elevation of AST ALT normal. Urinalysis significant for positive nitrites and leukoesterase which could mean urinary tract infection which would explain her acute symptoms-however back in October of 2023 when she presented the same way in the ED she had a positive urine at that time that was not addressed and she was still sent home. We will treat outpatient and send urine culture and advise continue to follow up with Neurology. Prior to disposition and will also order a bedside PT/ CM eval to determine safest disposition for the patient. 1430: PT/CM evaluation pending dispo 1538: Patient will not have this evaluation until tomorrow we will place her in observation status. Time: 16:00 Date: 09/28/24 Provider: Dariela Nichols PA-C Patient in physician observation for case management needs. No current issues or complaints. VS stable. Patient is pending assessment for potential placement at facility/pending PT/CM eval. Will continue to monitor. Physical therapy was able to feel stopped by despite scheduled and did recommend a short-term rehab this was discussed with case management who will put her search status. Night meds ordered, she will require RX for continued macrobid upon discharge ( macrobid 100 mg BID x 5 days #10 minus dosing given in ED) We will continue to monitor. Patient was signed out to the evening physician optical assistant Viridiana Otto pending STR placement. Med reconcilation pending @640 pm. Differential Diagnosis Differential Diagnoses: The differential diagnosis associated with the presentation includes physical deconditioning chronic ICH, CVA UTI radiculopathy Admission/Observation Consideration of admission/observation: Escalation of care including admission/observation considered Patient would have been admitted to the hospital had her work up had any findings where hospital admission was appropriate and her clinical presentation warranted hospital admission. Consult Healthcare Provider Management of the patient was discussed with: Ecology Teacher PT/CM Lab Data MDM Lab Attestation statement: I reviewed the patient's lab results. Chronic microcytic anemia noted, + nitrites and + leuks 09/28/24 12:35 09/28/24 12:35 Labs: Lab Results 09/28/24 09/28/24 09/29/24 Range/Units 12:35 13:44 09:01 WBC 8.2 (4.8-10.8) X10*3/uL RBC 3.99 L (4.20-5.50) X10*6/uL Hgb 11.8 L (12.0-16.0) g/dl Hct 36.2 L (37.0-47.0) % MCV 90.7 (80.0-98.0) fL MCH 29.6 (27.0-33.0) pg MCHC 32.6 (31.0-35.0) g/dl RDW 12.6 (11.0-16.0) % Plt Count 354 (160-400) X10*3/uL MPV 9.8 (9.4-12.3) fL Immature Gran % (Auto) 0.6 H (0.0-0.4) % Neut % (Auto) 68.2 (45-73) % Lymph % (Auto) 23.6 (20-40) % [place] % (Auto) 6.1 (2-11) % Eos % (Auto) 1.0 (0-4) % Baso % (Auto) 0.5 (0-2) % Lymph # (Auto) 1.9 (1.2-4.9) X10*3/uL [place] # (Auto) 0.5 (0.1-1.2) X10*3/uL Eos # (Auto) 0.1 (0.0-0.4) X10*3/uL Baso # (Auto) 0.0 (0.0-0.2) X10*3/uL Abs Immat Gran (auto) 0.05 H (0.00-0.03) X10*3/uL Absolute Neuts (auto) 5.6 (2.0-8.3) x10*3/uL Absolute Nucleated RBC 0.000 (0.0-0.012) X10*3/uL Nucleated RBC % (auto) 0.0 (0.0-0.2) /100WBC PT 11.0 (10.9-12.4) SEC INR 1.0 (0.9-1.1) Sodium 140 (135-145) mmol/L Potassium 4.9 (3.3-5.1) mmol/L Chloride 107 (96-108) mmol/L Carbon Dioxide 25 (22-29) mmol/L Anion Gap 13 (12-20) BUN 26 H (9-16) mg/dL Creatinine 0.99 (0.5-1.4) mg/dL Estim Creat Clear Calc 71.5 Estimated GFR 56 Random Glucose 88 (60-115) mg/dL Calcium 9.4 (8.4-10.2) mg/dL Total Bilirubin 0.3 (0.0-1.0) mg/dL AST 35 H (5-31) U/L ALT 10 (0-31) U/L Alkaline Phosphatase 59 (39-117) U/L Total Protein 7.6 (6.5-8.0) g/dL Albumin 3.8 (3.5-5.0) g/dL Urine Color Yellow Urine Appearance Clear Urine pH 5.5 (5.0-9.0) Ur Specific [place] 1.015 (1.005-1.025) Urine Protein Negative (Neg-Trace) mg/dL Urine Glucose (UA) Negative (Negative) mg/dL Urine Ketones Negative (Negative) mg/dL Urine Blood Negative (Negative) Urine Nitrite Positive H (Negative) Ur Leukocyte Esterase Moderate (2+) H (Negative) Urine RBC 0-2 (0-2) /HPF Urine WBC 11-20 H (0-5) /HPF Ur Squamous Epith Cells 6-10 (0-2) /HPF Urine Bacteria 4+ (None Seen) Hyaline Casts 0-2 (0-2) /LPF Influenza Type A (PCR) NEGATIVE (Negative) Influenza Type B (PCR) NEGATIVE (Negative) RSV RNA Qual (PCR) NEGATIVE (Negative) SARS-CoV-2 RNA (RT-PCR) NEGATIVE (Negative) Independent Interpretation I performed an independent interpretation of an: CT Scan Interpretation: NO ICH Radiology Impression Discussion of test interpretation with radiology: I have reviewed the radiologist's reading. External Record Review External record reviewed: Outpatient record and Primary care record Tests considered The following testing was considered but not selected: plain xrays if there was hx of falls or trauma Prescription Management I considered prescription management with: Antibiotic Chronic Conditions Patient?s care impacted by: Other (residual stroke deficits) Social Determinants Patient?s care significantly limited by Social Determinants of Health including: Other Social Determinant of Health Discharge Plan Discharge Clinical Impression: Right sided weakness, Physical deconditioning, Acute UTI Patient Disposition: Xfer Inpatient Rehab Fac Instructions: Weakness (ED), Urinary Tract Infection in Older Adults (ED) Additional Instructions: You are being treated with antibiotic called Macrobimary for a urinary tract infection. You were given two doses in the ED. You need a total of 8 more doses to complete treatment. (100mg BID x 4 days). Prescriptions: No Action verapamil 240 mg tablet extended release 240 mg PO BEDTIME chlorthalidone 25 mg tablet 25 mg PO DAILY acetaminophen 325 mg Tablet 325 mg PO Q6H PRN (Reason: Pain) atorvastatin 40 mg tablet 40 mg PO BEDTIME meclizine 12.5 mg tablet 12.5 mg PO TID PRN (Reason: Dizziness Or Vertigo) clopidogrel 75 mg tablet 75 mg PO DAILY cholecalciferol (vitamin D3) [Vitamin D3] 125 mcg (5,000 unit) tablet 125 mcg PO DAILY lisinopril 40 mg tablet 40 mg PO DAILY pantoprazole 20 mg tablet,delayed release (DR/EC) 20 mg PO DAILY@0630 Referrals: [facility] Neuro/Sleep [Provider Group] Referral Note: follow up ED, normal CTA Head and Neck Day [facility] [Outside] Referral Note: [address] [place] [address] Print Language: Swazi
[2024-09-28 12:42] LABS: MANUAL DIFF FLAG NO
[2024-09-28 12:46] LABS: Hematocrit 36.2 % (37.0-47.0); Hemoglobin 11.8 g/dl (12.0-16.0); Imm Gran Abs Auto 0.05 X10*3/uL (0.00-0.03); Imm Gran Pct Auto 0.6 % (0.0-0.4); Lymphocytes Absolute Auto 1.9 X10*3/uL (1.2-4.9); Mean Corpuscular HGB Conc 32.6 g/dl (31.0-35.0); Mean Corpuscular Hemoglobin 29.6 pg (27.0-33.0); Mean Corpuscular Volume 90.7 fL (80.0-98.0); NRBC Abs Auto 0.000 X10*3/uL (0.0-0.012); NRBC Pct Auto 0.0 /100WBC (0.0-0.2); Platelet Count 354 X10*3/uL (160-400); Red Blood Count 3.99 X10*6/uL (4.20-5.50); White Blood Count 8.2 X10*3/uL (4.8-10.8)
[2024-09-28 12:54] LABS: INTERNATIONAL NORM RATIO 1.0 (0.9-1.1); Prothrombin Time 11.0 SEC (10.9-12.4)
[2024-09-28 12:59] LABS: Alanine Aminotransferase 10 U/L (0-31); Albumin Level 3.8 g/dL (3.5-5.0); Alkaline Phosphatase 59 U/L (39-117); Anion Gap 13 (12-20); Aspartate Amino Transferase 35 U/L (5-31); Blood Urea Nitrogen 26 mg/dL (9-16); Calcium 9.4 mg/dL (8.4-10.2); Carbon Dioxide 25 mmol/L (22-29); Chloride 107 mmol/L (96-108); Creatinine Clr Calc Pharmacy 71.5; Estimated Glomerular Filt Rate 56; Potassium 4.9 mmol/L (3.3-5.1); Sodium 140 mmol/L (135-145); Total Protein 7.6 g/dL (6.5-8.0)
--- OUTSIDE RECORDS SUMMARY | 2024-09-28 13:09 | XMS_ITS | Encounter Summary ---
Author Organization [employer] Address [address] [place] [address] [address] [place] [address] Care Team Providers Care Asset Protection Agent Name Role Phone Massile Nelson [facility] Primary Care Provider Anna Garcia MD Primary Care Provider [phone] Kate Cesar MD Primary Care Provider + Encounter Details Date Type Department Care Team (Late st Contact Info) Description 04/02/2022 Orders Only HF [facility] PRIMARY/PEDS [address] [facility], [address] [place] [phone] AnitaLeslisa, DIGITAL ARCHIVIST [address] [facility] [address] [place] [phone] Social History Tobacco Use Types Packs/Day Years [...] Care Team (Late st Contact Info) Description 10/13/2024 10:30 AM EDT Nutrition C DIABETES/NUTRITION [address] [place], [place] [phone] Ethel Cantu, [address] [place] [address] 12/03/2024 11:45 AM EDT Office Visit [facility] MEDICINE [address] [place] [address] Kate Cesar MD [address] [place] [address] [phone] documented as of this encounter Visit Diagnoses Not on filedocumented in this encounter Care Teams Asset Protection Agent Relationship Specialty Start Date End Date Massiel [facility] PCP - General 03/24/22 06/09/23 Anna Parnell MD [address] [place] [id number] PCP - General Internal Medicine 06/10/23 10/31/23 Kate Cesar MD [address] [place] [id number] PCP - General Internal Medicine 03/24/24 documented as of this encounter
[2024-09-28] MEDS: iohexoL 350 MG/ML 100 ML INFUS..BTL IV (13:31)
[2024-09-28 13:51] LABS: Appearance Urine Clear; Glucose Urine UA Negative (Negative); PH 5.5 (5.0-9.0); Specific Gravity - Urine 1.015 (1.005-1.025); UMIC TRIGGER UACC YES
[2024-09-28 13:53] LABS: UACC Culture Trigger YES
--- NOTE | 2024-09-28 13:56 | MHC.EDTECH ---
Pt ambulated to and from bathroom with walker and a steady gait. UA collected and sent to [facility], YARY aware
[2024-09-28 14:43] VITALS: BP 116/47; PULSE 80; RESP 13; TEMP 36.6; O2SAT 98
[2024-09-28 16:58] VITALS: BP 123/57; PULSE 80; RESP 16; TEMP 36.6; O2SAT 95
--- NOTE | 2024-09-28 20:12 | PC.NURSE ---
pt incont of urine. assist with washing and bed change. purewick placed per request
--- NOTE | 2024-09-28 20:27 | PHA.MEDREC ---
Addendum entered by Liana Farr [facility] 09/28/24 20:33: REVIEWED BY PHARMACIST Original Note: Pharmacy Consult ? Medication Reconciliation Pharmacy has completed the medication reconciliation. Utilized drug purchaser services to confirm pt medications. Pt had on hand a Med Box list we utilized and pt confirmed she still takes Acetaminophen 325mg tabs 1 q6h as needed for pain and Meclizine 12.5mg tabs as needed for dizziness or vertigo.
[2024-09-28 21:07] VITALS: BP 136/71; PULSE 80; RESP 18; TEMP 36.9; O2SAT 98
[2024-09-28] MEDS: VerapamiL HCL SR 240 MG TABLET.ER PO (21:29)
--- NOTE | 2024-09-28 21:31 | MHC.CM.CNN ---
CM met with patient with medical certification specialist, as pt is Polish speaking only. Pt lives with her sister, Kaylan. She uses a rollator. Pt is aggreable to PT assessment and STR if recommended. Pt states she has a STRAW BALER from [employer] 16 hours/wk. HCP reviewed, completed and signed. HCP/nephew Everett Luevano [phone]. Copies given and uploaded into [facility] [employer] and [facility]. Address, PCP and insurance verified. Will make local referrals for STR. CM following for discharge planning.
[2024-09-29 04:03] VITALS: BP 111/53; PULSE 69; RESP 20; TEMP 36.7; O2SAT 94
--- NOTE | 2024-09-29 06:31 | PC.NURSE ---
pt resting comfortably throughout the night. no apparent distress noted, call graham w/in reach
[2024-09-29 07:49] VITALS: BP 111/57; PULSE 60; RESP 17; TEMP 36.6; O2SAT 96
--- NOTE | 2024-09-29 09:38 | PC.NURSE ---
medication administered per provider order. swabs obtained/sent to lab. per CM, patient will be pending transfer to [facility]. ETA unknown at this time. plan of care ongoing. call graham placed within reach.
--- NOTE | 2024-09-29 09:43 | MHC.CM.ED ---
Patient remains in ER. Dorian Ks, [facility], [facility], [facility], Leti Jacob, [facility], [facility] and [facility] are able to offer beds. Met with patient and slot floor supervisor in regards to discharge planning. Patient accepts bed at [facility]. [facility] has been asked to obtain insurance auth. Continue to monitor for d/c needs.
[2024-09-29 09:44] LABS: Resp Syncy Virus RNA Qual PCR NEGATIVE (Negative); SARS COV2 PCR INHOUSE NEGATIVE (Negative)
[2024-09-29 10:53] VITALS: BP 95/44; PULSE 73; RESP 15; TEMP 37.2; O2SAT 97
--- NOTE | 2024-09-29 14:14 | MHC.CM.ED ---
Ninos[facility] has obtained insurance auth. Patient can leave at 330pm. Ezequiel SANDOVAL booked. Med nec with chart. Patient, Haris RN and Dina COLLINS aware. Continue to monitor for d/c needs.
[2024-09-29 14:42] VITALS: BP 131/66; PULSE 76; RESP 17; TEMP 37.1; O2SAT 98
--- NOTE | 2024-09-29 16:00 | PC.NURSE ---
Report given to Mario PRINGLE @ [facility].
[2024-09-29 16:08] VITALS: BP 131/66; PULSE 76; RESP 17; TEMP 37.1; O2SAT 98
== END 2024-09-29 16:11 ==
PROVIDERS: Physician Assistant Medical; Registered Nurse Emergency; Emergency Provider Emergency Medicine; PCP Internal Medicine
DX: R53.1 Weakness (principal); N39.0 Urinary tract infection, site not specified; R53.81 Other malaise; R07.9 Chest pain, unspecified; I10 Essential (primary) hypertension; E78.2 Mixed hyperlipidemia; J45.909 Unspecified asthma, uncomplicated; E66.9 Obesity, unspecified; Z68.41 Body mass index [BMI] 40.0-44.9, adult; Z86.73 Personal history of transient ischemic attack (TIA), and cerebral infarction without residual deficits; Z03.818 Encounter for observation for suspected exposure to other biological agents ruled out; Z79.02 Long term (current) use of antithrombotics/antiplatelets; Z79.899 Other long term (current) drug therapy
CPT/HCPCS: 36415; 70496; 70498; 80053; 81001; 85025; 85610; 87086; 87637; 93005; 96360; 97162; 99285; Q9967

== ENCOUNTER → 2024-09-28 11:52 | Outpatient (BNV) | payer OTHER, SELFPAY | PROVIDERS: Emergency Provider Emergency Medicine; PCP Internal Medicine; Visit Provider Internal Medicine Cardiovascular Disease | DX: R07.9 Chest pain, unspecified (principal) | CPT/HCPCS: 93010 ==

== ENCOUNTER → 2024-09-28 12:27 | Outpatient (BNV) | payer OTHER, SELFPAY | PROVIDERS: Emergency Provider Emergency Medicine; PCP Internal Medicine; Visit Provider Radiology Diagnostic Radiology | DX: R42 Dizziness and giddiness (principal) | CPT/HCPCS: 70496; 70498 ==

== ENCOUNTER 2024-12-01 16:22 | Outpatient (REF) | payer OTHER, SELFPAY ==
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
--- OUTSIDE RECORDS SUMMARY | 2024-12-01 18:41 | XMS_ITS | Clinical Summary ---
Author Organization [address] [facility] Address [address] [place] [address] Phone Care Team Providers Care Forming Machine Operator Name Role Phone Cheri Gallardo MD Primary Care Provider [phone] Encounters Date Type Department Care Team Description 09/30/2024 Lab Requisition [facility] - Main Lab [address] [place] [address] Cheri Gallardo MD Essential (primary) hypertension; Vitamin D deficiency, unspecified; Gastro-esophageal reflux disease without esophagitis; Heart failure, unspecified (CMS/[facility] V24, [facility] V28) from Last 3 Months Social History Tobacco Use Types Packs/Day Years Used Date Smoking Tobacco: Never Assessed Comments Unknown Sex and Gender Information Value Date Recorded Sex Assigned at Not on file Legal Sex Female 10:05 AM EDT Gender Identity Not on file Sexual Orientation Not on file Plan of Treatment Health Maintenance Due Date Last Done Comments DTaP,Tdap,and Td Vaccines (1 - Tdap) 1977 Pneumococcal Vaccine: 50+ Years (1 of 2 - PCV) 1977 Zoster Vaccines (1 of 2) 2008 RSV Immunization Adult Patients (1 - Risk 60-74 years 1-dose series) 2018 Breast Cancer Screening 09/16/2023 09/15/2021 Depression Screening 03/11/2024 Cholesterol Screening (Lipid Panel) 10/01/2024 Colorectal Cancer Screening: Colonoscopy 10/01/2024 Falls Risk Assessment 10/01/2024 Hepatitis C Screening 10/01/2024 Osteoporosis Screening (Bone Density Screening) 10/01/2024 Social Influencers of Health Screening 10/01/2024 COVID-19 Vaccine (2 - season) 2024 09/08/2021 Influenza Vaccine (#1) 2024 2, 12/30/2020, 05/07/2019, Additional history exists Hypertension/CHF/CAD Annual BMP Blood Test 09/30/2025 09/30/2024, 09/28/2024 HIB Vaccines Aged Out No longer eligi [...] on patient's age to complete this topic MMR Vaccines Aged Out No longer eligi ble based on patient's age to complete this topic Meningococcal ACWY Vaccine Aged Out N o longer eligible based on patient's age to complete this topic Meningococcal B Vaccine Aged Out No l onger eligible based on patient's age to complete this topic RSV Immunization Patients Under 20 months Aged Out No longer eligible based on patient's age to complete this topic Varicella Vaccines Aged Out No longer eligible based on patient's age to complete this topic Procedures Procedure Name Priority Date/Time Associated Diagnosis Comments IRON Routine 09/30/2024 5:14 AM EDT Essential (primary) hypertension Vitamin D deficiency, unspecified Gastro-esophageal reflux disease without esophagitis Heart failure, unspecified (CMS/HCC V24, CMS/[facility] V28) VITAMIN B12 AND FOLATE Routine 5:14 AM EDT Essential (primary) hypertension Vitamin D deficiency, unspecified Gastro-esophageal reflux disease without esophagitis Heart failure, unspecified (CMS/HCC V24, CMS/[facility] V28) VITAMIN D 25 HYDROXY Routine 09/30/2024 5:14 AM EDT Essential (primary) hypertension Vitamin D deficiency, unspecified Gastro-esophageal reflux disease without esophagitis Heart failure, unspecified (CMS/HCC V24, CMS/[facility] V28) COMPREHENSIVE METABOLIC PANEL Routine 09/30/2024 5:14 AM EDT Essential (primary) hypertension Vitamin D deficiency, unspecified Gastro-esophageal reflux disease without esophagitis Heart failure, unspecified (CMS/HCC V24, CMS/[facility] V28) COMPLETE BLOOD COUNT Routine 09/30/2024 5:14 AM EDT Essential (primary) hypertension Vitamin D deficiency, unspecified Gastro-esophageal reflux disease without esophagitis Heart failure, unspecified ([facility] V24, [facility] V28) from Last 3 Months Results * Vitamin B12 and folate (09/30/2024 5:14 AM EDT) Pathologist [facility] Vitamin B-12 362 250 - 900 pcg/mL LAB CHEMISTRY METHOD 09/30/2024 11:35 AM EDT [facility] Folate 4.2 2.8 - 17.0 ng/ml LAB CHEMISTRY METHOD 09/30/2024 11:35 AM EDT [facility] Blood Venous blood specimen / Unknown Venipuncture / Unknown 09/30/2024 5:14 AM EDT 09/30/2024 10:11 AM EDT Cheri Gallardo MD LAB BLOOD ORDERABLES Final Resul t Performing Organization Address City/[facility]/ZIP Co de Phone Number [facility] [address] [place] [address], [place] [phone] * (ABNORMAL) Vitamin D 25 hydroxy (09/30/2024 5:14 AM EDT) Pathologist [facility] Vit D, 25-Hydroxy 91.4(H) 30.0 - 80.0 ng/mL LAB CHEMISTRY METHOD 09/30/2024 12:44 PM EDT [facility] Blood Venous blood specimen / Unknown Venipuncture / Unknown 09/30/2024 5:14 AM EDT 09/30/2024 10:11 AM EDT Cheri Gallardo MD LAB BLOOD ORDERABLES Final Resul t [facility] [address] [place] [address], * Complete blood count (09/30/2024 5:14 AM EDT) [facility] WBC 8.3 4.8 - 10.8 K/mcL LAB HEMETOLOGY METHOD 09/30/2024 10:37 AM [facility] RBC 3.90 3.80 - 4.80 M/mcL LAB HEMETOLOGY METHOD 09/30/2024 10:37 AM [facility] Hemoglobin 11.5 11.5 - 16.0 g/dL LAB HEMETOLOGY METHOD 09/30/2024 10:37 AM [facility] Hematocrit 35.8 35.0 - 47.0 % LAB HEMETOLOGY METHOD 09/30/2024 10:37 AM [facility] MCV 92.7 79.0 - 98.0 FL LAB HEMETOLOGY METHOD 09/30/2024 10:37 AM [facility] MCH 29.8 27.0 - 32.0 pcg LAB HEMETOLOGY METHOD 09/30/2024 10:37 AM [facility] MCHC 32.1 32.0 - 37.0 g/dL LAB HEMETOLOGY METHOD 09/30/2024 10:37 AM [facility] RDW 12.7 11.0 - 15.0 % LAB HEMETOLOGY METHOD 09/30/2024 10:37 AM [facility] Platelets 337 130 - 400 K/mcL LAB HEMETOLOGY METHOD 09/30/2024 10:37 AM [facility] MPV 10.2 7.0 - 11.0 FL LAB HEMETOLOGY METHOD 09/30/2024 10:37 AM [facility] NRBC 0.0 <1.0 % LAB HEMETOLOGY METHOD 09/30/2024 10:37 AM [facility] NRBC Absolute 0.00 <0.10 K/mcL LAB HEMETOLOGY METHOD 09/30/2024 10:37 AM EDT [facility] Blood Venous blood specimen / Unknown Venipuncture / Unknown 09/30/2024 5:14 AM EDT 09/30/2024 10:11 AM EDT us Cheri Gallardo MD LAB BLOOD ORDERABLES Final Resul t Performing Organization Address [facility]/ZIP Co de Phone Number [facility] [address] [place] [address], [place] [phone] * Iron (09/30/2024 5:14 AM EDT) Pathologist [facility] Iron 48 40 - 150 mcg/dL LAB CHEMISTRY METHOD 09/30/2024 11:12 AM EDT [facility] Blood Venous blood specimen / Unknown Venipuncture / Unknown 09/30/2024 5:14 AM EDT 09/30/2024 10:11 AM EDT us Cheri Gallardo MD LAB BLOOD ORDERABLES Final Resul t Performing Organization Address [facility] de Phone Number [facility] [address] [place] [address], [place] [phone] * (ABNORMAL) Comprehensive metabolic panel (09/30/2024 5:14 AM EDT) [facility] Sodium 141 133 - 145 mmol/L LAB CHEMISTRY METHOD 09/30/2024 11:35 AM EDT [facility] Potassium 4.0 3.5 - 5.5 mmol/L LAB CHEMISTRY METHOD 09/30/2024 11:35 AM EDT [facility] Chloride 106 96 - 110 mmol/L LAB CHEMISTRY METHOD 09/30/2024 11:35 AM EDT [facility] CO2 27 21 - 32 mmol/L LAB CHEMISTRY METHOD 09/30/2024 11:35 AM [facility] Anion Gap 8 3 - 11 LAB CHEMISTRY METHOD 09/30/2024 11:35 AM [facility] Glucose 69(L) 70 - 100 mg/dL LAB CHEMISTRY METHOD 09/30/2024 11:35 AM [facility] BUN 16 5 - 25 mg/dL LAB CHEMISTRY METHOD 09/30/2024 11:35 AM [facility] Creatinine 0.91 0.50 - 1.10 mg/dL LAB CHEMISTRY METHOD 09/30/2024 11:35 AM [facility] eGFR 70 >=60 mL/min/1. 73m2 LAB CHEMISTRY METHOD 09/30/2024 11:35 AM [facility] Comment:Calculation based on the Chronic Kidney Disease Epidemiology Collaboration (CKD-EPI) equation refit without adjustment for race. BUN/Creatinine Ratio 17.6 LAB CHEMISTRY METHOD 09/30/2024 11:35 AM [facility] Calcium 9.7 8.5 - 10.5 mg/dL LAB CHEMISTRY METHOD 09/30/2024 11:35 AM [facility] AST (SGOT) 10 10 - 42 unit/L LAB CHEMISTRY METHOD 09/30/2024 11:35 AM [facility] ALT (SGPT) 14 10 - 60 unit/L LAB CHEMISTRY METHOD 09/30/2024 11:35 AM [facility] Alkaline Phosphatase 65 42 - 121 unit/L LAB CHEMISTRY METHOD 09/30/2024 11:35 AM [facility] Total Protein 6.5 6.0 - 8.0 g/dL LAB CHEMISTRY METHOD 09/30/2024 11:35 AM [facility] Albumin 3.1(L) 3.2 - 5.0 g/dL LAB CHEMISTRY METHOD 09/30/2024 11:35 AM [facility] Total Bilirubin 0.4 0.0 - 1.4 mg/dL LAB CHEMISTRY METHOD 09/30/2024 11:35 AM EDT [facility] Blood Venous blood specimen / Unknown Venipuncture / Unknown 09/30/2024 5:14 AM EDT 09/30/2024 10:11 AM EDT us Cheri Gallardo MD LAB BLOOD ORDERABLES Final Resul t [facility] [address] [place] [address], [place] [phone] from Last 3 Months Insurance MEDICAID - [place] Care Teams Forming Machine Operator Relationship Specialty Start Date End Date Cheri Gallardo MD [address] [place] [address] [phone] [place] [address] PCP - General Geriatric Medicine 09/30/24
--- OUTSIDE RECORDS SUMMARY | 2024-12-01 18:41 | XMS_ITS | Encounter Summary ---
Author Organization [employer] Address [address] [employer] [address]t [place] [address] Care Team Providers Care Flying Teacher Name Role Phone Kate Cesar MD Primary Care Provider + Encounter Details Date Type Department Care Team (Late st Contact Info) Description 09/23/2024 Telephone HF [facility] PRIMARY/PEDS [address] [facility], [address] [place] [address] Kate Cesar MD [address] [place] [address] Social History Tobacco Use Types Packs/Day Years [...] Description 03/15/2025 10:30 AM EST Office Visit [facility] [address] [place], [place] [phone] Vicki Zapata, OD [address] [place] [address] documented as of this encounter Visit Diagnoses Not on filedocumented in this encounter Additional Health Concerns Assessment Noted Time PHQ-9 Depression Total Score: 17 025 1:02 PM EST documented as of this encounter Care Teams Flying Teacher Relationship Specialty Start Date End Date Kate Cesar MD [address] [place], [place] [phone] PCP - General Internal Medicine 03/24/24 documented as of this encounter
--- OUTSIDE RECORDS SUMMARY | 2024-12-01 18:41 | XMS_ITS | Encounter Summary ---
Author Organization [employer] Address [address] [place] [address] [address] [address] Care Team Providers Care Ehs Specialist Name Role Phone Massiel Nelson [facility] Primary Care Provider Anna Garcia MD Primary Care Provider Kate Cesar MD Primary Care Provider + Encounter Details Date Type Department Care Team (Late Contact Info) Description 10/18/2022 Orders Only HF [facility] PRIMARY/PEDS [address] [place] [address], [address] [address] Massiel Nelson [facility] Social History Tobacco Use Types Packs/Day Years [...] Encounters Date Type Department Care Team (Late Contact Info) Description 03/15/2025 10:30 AM EST Office Visit [facility] OPTOMETRY [address] [place], [place] [phone] Vicki Zapata, OD [address] [place], [place] [phone] documented as of this encounter Visit Diagnoses Not on filedocumented in this encounter Additional Health Concerns Assessment Noted Time PHQ-9 Depression Total Score: 6 09/11/19 23 12:43 PM EDT documented as of this encounter Care Teams Ehs Specialist Relationship Specialty Start Date End Date Massiel NelsonNOELP- PCP - General 03/24/22 06/09/23 Anna Parnell MD [address] [place] [phone] PCP - General Internal Medicine 06/10/23 10/31/23 Kate Cesar MD [address] [place] [id number] PCP - General Internal Medicine 03/24/24 documented as of this encounter
--- OUTSIDE RECORDS SUMMARY | 2024-12-01 18:41 | XMS_ITS | Encounter Summary ---
Author Organization [employer] Address [address] [facility] [address]t [place] [address] Care Team Providers Care Cleaning And Washing Equipment Operator Name Role Phone Kate Cesar MD Primary Care Provider + Encounter Details Date Type Department Care Team (Latest Contact Info) Description 11/27/2024 Travel Social History Tobacco Use Types Packs/Day Years Used Date Smoking Tobacco: Never Passive Smoke Exposure: Never Smokeless Tobacco: Never Alcohol Use Standard Drinks/Week Comments Never 0 (1 standard drink = 0.6 oz pur e alcohol) Depression Answer Date Recorded Patient Health Questionnaire-9 Score 20 11/27/2024 Patient Health Questionnaire-9 Score 20 11/27/2024 Last PHQ-9: Questionnaire Data Not on file 0 11/27/2024 Housing Stability Answer Date Recorded What is your housing situation today? I do not have housing (Staying with others, in a hotel, in a senior care, living outside on the street, on a [...] PM EDT documented as of this encounter Functional Status * Over the [...] than half the days 11/27/2024 3:34 PM EDT Daisy Rasmussen [place] * Patient Health Questionnaire-9 Score Answer Date of Assessment Author 11/27/2024 3:34 PM EDT Kelly Sweet [place] * How difficult have these problems made it for you to do your work, take care of things at home, or get along with other people? Answer Date of Assessment Author Very difficult 11/27/2024 3:34 PM EDT Kelly Sweet [place] documented as of this encounter Plan of Treatment Upcoming Encounters Date Type Department Care Team (Late st Contact Info) Description 03/15/2025 10:30 AM EST Office Visit [facility] OPTOMETRY [address] [place] [address] Vicki Zapata, OD [address] [place] [address] documented as of this encounter Visit Diagnoses Not on filedocumented in this encounter Additional Health Concerns Assessment Noted Time PHQ-9 Depression Total Score: 025 3:34 PM EDT documented as of this encounter Care Teams Cleaning And Washing Equipment Operator Relationship Specialty Start Date End Date Kate Cesar MD [address] [place] [address] PCP - General Internal Medicine 03/24/24 documented as of this encounter
--- OUTSIDE RECORDS SUMMARY | 2024-12-01 18:41 | XMS_ITS | Encounter Summary ---
Author Organization [employer] Address [address] [place] [address] 7[address] [place] [address] Care Team Providers Care Merchandise Presentation Manager Name Role Phone OmarMassiel [facility] Primary Care Provider Anna Garcia MD Primary Care Provider [phone] Kate Cesar MD Primary Care Provider + Encounter Details Date Type Department Care Team (Late st Contact Info) Description 04/02/2022 Orders Only HF [facility] PRIMARY/PEDS [address] [place] [address], [address] [place] [phone] Anita, Roxanne, LITERARY AGENT [address] [place] [address] [place] [phone] Social History Tobacco Use Types Packs/Day Years [...] Description 03/15/2025 10:30 AM EST Office Visit [facility] OPTOMETRY [address] [place] [address] Vicki Zapata, OD [address] [place] [address] documented as of this encounter Visit Diagnoses Not on filedocumented in this encounter Care Teams Merchandise Presentation Manager Relationship Specialty Start Date End Date [facility] PCP - General 03/24/22 06/09/23 Anna Parnell MD [address] [place] [phone] PCP - General Internal Medicine 06/10/23 10/31/23 Kate Cesar MD [address] [place] [id number] PCP - General Internal Medicine 03/24/24 documented as of this encounter
--- OUTSIDE RECORDS SUMMARY | 2024-12-01 18:41 | XMS_ITS | Clinical Summary ---
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 acetaminophen (Tylenol) 500 MG tabletIndications :Other chronic pain Take 1 tablet (500 mg) by mouth every 6 (six) hours if needed for mild pain or headaches. 90 tablet 3 01/10/20 24 2024 Active atorvastatin (Lipitor) 40 MG tabletIndications :Mixed hyperlipidemia Take 1 tablet (40 mg) by mouth Once per day. 90 tablet 3 01/10/20 24 2024 Active lisinopril 40 MG tabletIndications :Essential hypertension Take 1 tablet (40 mg) by mouth Once per day. 90 tablet 3 01/10/20 24 2024 Active verapamil SR (Calan SR) 240 MG ER tabletIndications :Essential hypertension Take 1 tablet (240 mg) by mouth at bedtime. 90 tablet 3 01/10/20 24 2024 Active chlorthalidone (Hygroton) 25 MG tablet Take 1 tablet (25 mg) by mouth Once per day. 30 tablet 11 01/10/20 24 2024 Active clopidogrel (Plavix) 75 MG tabletIndications :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 right dominant side (CMS/HCC) Take 1 tablet (75 mg) by mouth in the morning. 90 tablet 3 03/24/19 25 2025 Active Blood Pressure Monitoring (Blood Pressure Cuff) misc Use daily as prescribed 1 each 03/24/19 25 Active albuterol (Ventolin HFA) 108 (90 Base) MCG/ACT inhaler INHALE 1 PUFF BY MOUTH EVERY FOUR HOURS NEEDED FOR SHORTNESS OF BREATH OR WHEEZING 18 g 11 05/08/19 25 Active ammonium lactate (Amlactin) 12 % cream Apply topically if needed for dry skin. 385 g 05/23/19 25 Active polyvinyl alcohol (Liquifilm Tears) 1.4 % ophthalmic solution Administer 1 drop into both eyes 3 times daily. 05/23/19 25 Active baclofen (Lioresal) 20 MG tabletIndications :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 right dominant side (CMS/HCC) Take 1 tablet (20 mg) by mouth 3 times daily. 90 tablet 07/30/19 25 Active pantoprazole (Protonix) 20 MG EC tabletIndications :Gastroesophageal reflux disease without esophagitis Take 1 tablet (20 mg) by mouth before breakfast. Do not crush, chew, or split. 30 tablet 11 07/30/19 25 2025 Active meclizine (Antivert) 12.5 MG tabletIndications :Dizziness Take 1 tablet (12.5 mg) by mouth if needed in the morning, at noon, and at bedtime for dizziness. 30 tablet 1 07/30/19 25 Active fluticasone (Flonase) 50 MCG/ACT nasal spray USE 1 SPRAY IN EACH NOSTRIL ONCE DAILY 16 g 2 10/28/19 25 Active DULoxetine (Cymbalta) [address] capsule Take 1 capsule (30 mg) by mouth Once per day. Do not crush or chew. 60 capsule 10/29/19 25 2024 Active cholecalciferol (Vitamin D-3) 25 MCG (1000 UT) capsuleIndication s:Vitamin D deficiency Take 1 capsule (25 mcg) by mouth Once per day. 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 10/28/2024 Assessment & Plan (11/24/2024 10:09 AM EDT): Has home care, would like to trial medication for mood and chronic pain, initiated cymbalta may discontinue for any adverse effects, follow up with pcp Middle ear deafness 07/29/2024 Assessment & Plan (07/29/2024 10:58 AM EDT): Referral to ENT done today Muscular chest pain 07/29/2024 Assessment & Plan (07/29/2024 10:59 AM EDT): This is likely muscle spasm, I will prescribe course of muscle relaxer, advised to apply heat on affected area and she can use acetaminophen as needed Dry eyes, bilateral 05/22/2024 Assessment & Plan [...] within a week Congestive heart failure 03/24/2024 Assessment & Plan (07/29/2024 11:00 AM EDT): Cardiology referral printed and given to patient Class 3 severe obesity due t o excess calories with serious comorbidity and body mass index (BMI) of 50.0 to 59.9 in adult 03/24/2024 Assessment & Plan (07/29/2024 10:59 AM EDT): Counseling about healthy diet and exercise done today referral to keno writer / runner done Assessment & Plan (03/24/2024 2:39 PM EST): [...] 07/12/2023 Need for assistance with personal care Other lack of coordination 07/12/2023 Generalized anxiety disorder 07/12/2023 Unspecified abnormalities of gait and mobility 0 07/12/2023 Morbid obesity with BMI of 50.0-59.9, adult 06/11 Cerebrovascular accident (CV A) due to embolism of left middle cerebral artery 07/09/2023 Allergic rhinitis, unspecified 09/19/2022 Hemiplegia and hemiparesis f ollowing cerebral infarction affecting right dominant side 09/19/2022 Assessment & Plan (07/29/2024 10:59 AM EDT): Advised not to miss her appointment with physical therapist Assessment & Plan (05/22/2024 1:40 PM EDT): S/P CVA, ambulates with cane or walker. Needs evaluation from PT for fall prevention and home DME. Continue Plavix and Atorvastatin. FU Lipids in 6 months. Will refer to Neurology. Patient or BUSINESS ENTERPRISE OFFICER will call [facility] to arrange for transportation for these [...] 025 Pain in right knee 12/13/2022 01/08/2023 3 Difficulty in walking, not e lsewhere classified 09/19/2022 01/08/2023 Dizziness and giddiness 09/19/202212/11 Need for assistance with personal care 09/19/2022 01/08/2023 Other lack of coordination 09/19/2022 1 Other malaise 09/19/2022 01/08/2023 Other specified depressive episodes 09/19/2022 01/08/2023 Unspecified sequelae of cerebral infarction 09/19/2022 01/08/2023 Unsteadiness on feet 09/19/2022 023 Vitamin D deficiency, unspecified 09/19/2022 01/08/2023 Inadequate housing 05/28/2022 3 Obstructive sleep apnea syndrome 02/16/2022 01/08/2023 Arthritis [...] organization. 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 10/28/[address] [address] Kate Cesar MD Durable Medical Equipment 10/28/2024 Travel 10/27/2024 Telephone [facility] [address] [place] [phone] Evette Stiles, KARINA Chart Prep 10/24/2024 Refill [facility] [address] [place] [phone] Kate Cesar MD 10/16/2024 Patient Outreach [facility] [address] [place] [phone] Kate Cesar MD Transition Of Care (Tcm) (HDF - Scheduled ) 09/30/[address] [address] Kate Cesar MD FYI 09/29/2024 Orders Only GENERIC EXTERNAL DATA DEPARTMENT Provider, Generic External Data 09/28/2024 Orders Only GENERIC EXTERNAL DATA DEPARTMENT Provider, Generic External Data 09/24/[address] [address] Kate Cesar MD Referral 09/24/2024 Refill [facility] [address] [place] [phone] Karla Evans MD Mixed hyperlipidemia 09/23/2024 Telephone [facility] [address] [place] [phone] Anna Parnell MD FYI / ORDERS 09/23/2024 Telephone [facility] [address] [place] [phone] Kate Cesar MD 09/14/2024 Telephone [facility] [address] [place] [phone] Kate Cesar MD Appointment Request 09/10/2024 10:30 AM EDT Office Visit [facility] [address] [place] [phone] Vicki Zapata, OD Early dry stage nonexudative age-related macular degeneration of both eyes (Primary Dx); Proptosis; 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; Combined forms of age-related cataract of both eyes; Presbyopia 09/10/2024 Travel from Last 3 Months Immunizations Immunization Administration Dates Next Due Influenza Injectable Quadriv alant Preservative Free IIV4 MDCK 01/10/2022,12/30/2020,05/07/2019,2018 Influenza injectable quadriv alent IIV4 with preservative 01/10/2022,12/30/2020,05/07/2019,2018,01/06/2015 Influenza, seasonal, injecta ble, preservative free 12/30/2020,05/07/2019,04/14/2018 PPD Test 12/11/2022,09/15/2022 Pfizer Covid-19 Vaccine 12+ 09/08/2021 Pfizer Covid-19 Vaccine 12+ julio césar-sucrose (Schilling Cap) 09/08/2021 Pneumococcal Conjugate PCV 21 10/07/2024 Family History Medical History Relation Name Comments [...] with others, in a hotel, in a long term, living outside on the street, on a [...] 20 11/27/2024 2:42 PM EDT Oxygen Saturation 97% 10/28/2024 9:39 AM EDT Inhaled Oxygen Concentration - - Weight 121 kg (267 lb) 11/27/2024 2:42 PM EDT Height 149.9 cm (4' 11 ) 11/27/2024 2:42 PM EDT Body Mass Index 53.93 11/27/2024 2:42 PM EDT Plan of Treatment Upcoming Encounters Date Type Department Care Team (Late st Contact Info) Description 03/15/2025 10:30 AM EST Office Visit [facility] [address] [place], [place] [phone] Vicki Zapata OD [address] [place] [phone] Health Maintenance Due Date Last Done Comments CT Colonography 1960 Colonoscopy 1960 Colorectal Cancer Screening 1960 FIT DNA/Cologuard 1960 FIT 1960 FOBT 1960 Sigmoidoscopy 1960 Hepatitis C Screening 1976 DTaP/Tdap/Td Vaccines (1 - Tdap) 1977 Zoster Vaccines (1 of 2) 2008 RSV Patients and Patients Aged 60 years or older (1 - Risk 60-74 years 1-dose series) 2018 Mammogram 09/16/2023 09/15/2021, 07/0 10/2021, 09/15/2021, Additional history exists COVID-19 Vaccine ( - season) 2024 09/08/2021, 09/08/2021 Influenza Vaccine (#1) 2024 , 01/10/2022, 12/30/2020, Additional history exists SDOH Screening 03/12/2025 03/12/2024 Depression Monitoring 05/27/2025 11/27/2024, 025 Alcohol/Substance Use Screening 10/28/2025 10/28/2024 Tobacco Screening 11/27/2025 11/27/2024 Lipid Panel 03/24/2029 03/24/2024, 06/19/2021 Cervical Cancer Screening Discontinued HPV/Cotest Discontinued 11/04/2018 Pap Smear Discontinued 11/04/2018 Pneumococcal Vaccine: 50+ Years Completed 10/07/2024 HIB Vaccines Aged Out No longer eligi [...] Procedure Name Priority Date/Time Associated Diagnosis Comments AMB REFERRAL TO OPHTHALMOLOGY Routine 11/03/2024 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 SARS COV2/INFLUENZA A/B AND RSV RNA QL NAAT Routine 09/29/2024 9:01 AM EDT URINALYSIS, COMPLETE, WITH REFLEX TO CULTURE Routine 09/28/2024 1:44 PM EDT CTA HEAD NECK W AND WO CONTRAST Routine 09/28/2024 1:08 PM EDT COMPREHENSIVE METABOLIC PANEL Routine 09/28/2024 12:35 PM EDT PROTHROMBIN TIME-INR Routine 09/28/2024 12:35 PM EDT CBC WITH AUTO DIFFERENTIAL Routine 09/28/2024 12:35 PM EDT CULTURE, URINE, ROUTINE Routine 09/28/2024 12:00 AM EDT OCT, RETINA - OU - BOTH EYES Routine 09/10/2024 10:30 AM EDT Early dry stage nonexudative age-related macular degeneration of both eyes 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 LIPID PANEL WITH REFLEX TO DIRECT LDL Routine 03/24/2024 1:04 PM EST Essential hypertension MAMMOGRAM GENERIC Routine 09/15/2021 2:2 6 PM EDT HPV DNA PROBE, AMPLIFIED Routine 11/04/2018 10:13 PM EDT LIQUID-BASED PAP TEST Routine 11/04/2018 10:13 PM EDT from Last 3 Months or Most Recently Relevant to Health Maintenance Results * Referral to Ophthalmology (11/03/2024) Vicki Zapata OD OUTPATIENT REFERRAL ORDERABLES Final Result * SARS-CoV-2 RNA, Influenza A/B, and RSV RNA, Ql NAAT (09/29/2024 9:01 AM EDT) Influenza A PCR NEGATIVE Negative [facility] Influenza B PCR NEGATIVE Negative [facility] Resp Syncy Virus RNA Qual PCR NEGATIVE Negative [facility] SARS COV2 PCR NEGATIVE Negative [facility] Comment:All test results mus t be correlated with clinical findings.Negative results do not preclude SARS-CoV2, influenza Avirus, influenza B virus and/or RSV infectionand should not be used as the sole basis for treatment orother patient management decisions. Negative results must becombined with clinical observations, patient history, andepidemiological information.This test has not been evaluated for monitoring treatment ofinfection.This test has been authorized by the FDA under an EmergencyUse Authorization (EUA) for use by authorized laboratories.Testing performed on the [employer] GeneXpert utilizingreal-time RT-PCR.All SARS CoV2 and positive influenza A/B results arereported to [facility]. 09/29/2024 9:01 AM EDT 09/29/2024 9:04 AM EDT us Generic External Data Provider LAB MICROBIOLOGY - GENERAL ORDERABLES Final Result [facility] [address] [place] [phone] * (ABNORMAL) Urinalysis, Complete, with Reflex to Culture (09/28/2024 1:44 PM EDT) Color Urine Yellow [facility] Appearance Urine Clear [facility] PH 5.5 5.0 - 9.0 [facility] Glucose Urine UA Negative Negative mg/dL [facility] Urine Blood Negative Negative [facility] Specific [place] - Urine 1.015 1.005 - 1.025 [facility] Urine Protein Negative Neg-Trace mg/dL [facility] Urine Ketones Negative Negative mg/dL [facility] Nitrite Urine Positive(A) Negative [facility] Leukocyte Esterase Urine Moderate (2+)(A) Negative [facility] RBC Urine 0-2 0 - 2 /HPF [facility] Urine WBC 11-20(A) 0 - 5 /HPF [facility] Urine Squamous Epithelial Cell 6-10 0 - 2 /HPF [facility] Urine Bacteria 4+ None Seen [facility] Hyaline Casts, Urine 0-2 0 - 2 /LPF [facility] 09/28/2024 1:44 PM EDT 09/28/2024 1:47 PM EDT Narrative [facility] - 09/28/2024 1:54 PM EDT Urine, Clean Catch us Generic External Data Provider LAB URINE ORDERAB LES Final Result Performing Organization Address City/State/[facility] Co de Phone Number [facility] [address] [place] [phone] [phone] * CTA Head Neck w/ and w/o Contrast (09/28/2024 1:08 PM EDT) Anatomical Region Laterality Modality Head, Neck Computed Tomogra phy 09/28/2024 1:08 PM EDT Narrative 09/28/2024 2:09 PM EDT [place] [address] [address] Scan Report Signed Patient: Alysa Luevano MR#: [id number] : 1960 Acct:[id number] Age/Sex: 63 / F ADM Date: 09/28/24 Loc: .ED Attending Dr: Ordering Physician: Dariela Nichols PA-C Date of Service: 09/28/24 Procedure(s): CT angio head neck Accession Number(s): [id number] cc: Kate Cesar MD; Dariela Nichols PA-C Report Number: [id number]: Total DLP = 1417.00 mGy-cm EXAMINATION: CT ANGIOGRAM HEAD AND NECK CLINICAL INFORMATION: Dizziness, rule out stroke. COMPARISON: February 26, 2024. TECHNIQUE: Noncontrast axial imaging of the head was performed. This was followed by test bolus sequences and head and neck intravenous bolus administration 70mL of Omnipaque 350. Helical imaging was performed in the axial plane from the aortic arch to the skull vertex. The data was processed at the cat scan technologist's workstation for generation of MIP sequences. Angled MIPs and volume rendered reformatted images were also generated at an offline 3D workstation. Stenoses are assessed in accordance with NASCET criteria unless otherwise indicated. This CT examination was performed using dose optimization techniques as appropriate, variously including the following: *Automated exposure control *Adjustment of mA and/or kV according to patient size (this includes techniques or standardized protocols for targeted exams where dose is matched to indication/reason for exam; i.e. extremities or head) *Use of iterative reconstruction technique DLP: 1417 mGy*cm FINDINGS: NONCONTRAST HEAD CT: There is no evidence of intracranial hemorrhage or extra-axial fluid collection. There is no mass effect, or edema. No CT evidence of acute territorial infarct. Ventricles, sulci, and cisterns are normal in size and configuration for patient age. No hydrocephalus. No midline shift. No significant white matter abnormalities. Globes and orbital contents image normally. No extracranial soft tissue abnormalities. The paranasal sinuses, mastoid air cells, and tympanic cavities are normally aerated. No suspicious bony abnormalities. NECK CTA: -AORTIC ARCH: Normal in caliber. Mild atheromatous calcification. Three-vessel branching pattern. -GREAT VESSEL ORIGINS: Widely patent. No hemodynamically significant stenosis. -RIGHT COMMON CAROTID ARTERY: Origin is obscured by beam hardening artifact. Normal in course and caliber to the level of the bifurcation. -CERVICAL RIGHT INTERNAL CAROTID ARTERY: Normal opacification without focal stenosis or occlusion. -LEFT COMMON CAROTID ARTERY: Normal in course and caliber to the level of the bifurcation. -CERVICAL LEFT INTERNAL CAROTID ARTERY: Mild calcific atherosclerotic disease of the carotid bulb. There is no hemodynamically significant stenosis. -CERVICAL RIGHT VERTEBRAL ARTERY: Codominant. Normal in course and caliber into the skull base. -CERVICAL LEFT VERTEBRAL ARTERY: Codominant. Normal in course and caliber into the skull base. OTHER, SOFT TISSUES: -No lymphadenopathy or mass. No abnormal fluid collection or soft tissue swelling. -Normal thyroid. -Imaged superior mediastinal structures normal. -Imaged lung apices clear. CTA OF THE BRAIN: -INTRACRANIAL INTERNAL CAROTID ARTERIES: No focal stenosis or occlusion. Mild multifocal atherosclerotic calcifications are present. -RIGHT ANTERIOR CEREBRAL ARTERY: Normal A1 segment.. Normal arborization of the distal segments. -LEFT ANTERIOR CEREBRAL ARTERY: Normal A1 segment.. Normal arborization of the distal segments. -RIGHT MIDDLE CEREBRAL ARTERY: Normal M1 segment of the MCA without focal stenosis or occlusion. Normal arborization of the distal segments. -LEFT MIDDLE CEREBRAL ARTERY: Normal M1 segment of the MCA without focal stenosis or occlusion. Normal arborization of the distal segments. -RIGHT VERTEBRAL ARTERY V4: Normal in course and caliber. Normal PICA branch. -LEFT VERTEBRAL ARTERY V4: Normal in course and caliber. Normal PICA branch. -BASILAR ARTERY: Normal without focal stenosis or occlusion. Normal appearance of the proximal superior cerebellar arteries. Normal basilar tip. -RIGHT POSTERIOR CEREBRAL ARTERY: Normal P1 segment. Normal opacification of the distal BUSINESS ENTERPRISE OFFICER segments. -LEFT POSTERIOR CEREBRAL ARTERY: The P1 segment is diminutive. There is opacification of the distal BUSINESS ENTERPRISE OFFICER segments. -POSTERIOR COMMUNICATING ARTERIES: Present and small on the right greater than left. CT/CT angio head neck IMPRESSION: NONCONTRAST HEAD CT: 1. No intracranial hemorrhage or mass effect. No CT evidence of acute territorial infarct. CTA NECK: No hemodynamically significant stenosis. CTA HEAD: No hemodynamically significant stenosis. Communication sent to GRETCHEN Winter at 14:06 ET Electronically signed by: Chang Del Cid MD 09/28/2024 02:06 PM EDT Dictated By: Chang Del Cid MD Signed By: <Electronically signed by Chang Del Cid MD in OV> 09/28/24 1406 DD/ 1308 TD/TT: 09/28/24 1340 Health Education Aide: Procedure Note Donotuseinterpreter, Image - 09/28/[address] [id number] [address] Scan Report Signed Patient: Charles Luevano#: [id number] : 9Acct:[id number] Age/Sex: 63 / FADM Date: 09/28/24 Loc: HO.ED Attending Dr: Ordering Physician: Dariela Nichols PA-C Date of Service: 09/28/24 Procedure(s): CT angio head neck Accession Number(s): [id number] cc: Kate Cesar MD; Dariela Nichols PA-C Report Number: [id number]: Total DLP = 1417.00 mGy-cm EXAMINATION: CT ANGIOGRAM HEAD AND NECK CLINICAL INFORMATION: Dizziness, rule out stroke. COMPARISON: February 26, 2024. TECHNIQUE: Noncontrast axial imaging of the head was performed. This was followed by test bolus sequences and head and neck intravenous bolus administration 70mL of Omnipaque 350. Helical imaging was performed in the axial plane from the aortic arch to the skull vertex. The data was processed at the cat scan technologist's workstation for generation of MIP sequences. Angled MIPs and volume rendered reformatted images were also generated at an offline 3D workstation. Stenoses are assessed in accordance with NASCET criteria unless otherwise indicated. This CT examination was performed using dose optimization techniques as appropriate, variously including the following: *Automated exposure control *Adjustment of mA and/or kV according to patient size (this includes techniques or standardized protocols for targeted exams where dose is matched to indication/reason for exam; i.e. extremities or head) *Use of iterative reconstruction technique DLP: 1417 mGy*cm FINDINGS: NONCONTRAST HEAD CT: There is no evidence of intracranial hemorrhage or extra-axial fluid collection. There is no mass effect, or edema. No CT evidence of acute territorial infarct. Ventricles, sulci, and cisterns are normal in size and configuration for patient age. No hydrocephalus. No midline shift. No significant white matter abnormalities. Globes and orbital contents image normally. No extracranial soft tissue abnormalities. The paranasal sinuses, mastoid air cells, and tympanic cavities are normally aerated. No suspicious bony abnormalities. NECK CTA: -AORTIC ARCH: Normal in caliber. Mild atheromatous calcification. Three-vessel branching pattern. -GREAT VESSEL ORIGINS: Widely patent. No hemodynamically significant stenosis. -RIGHT COMMON CAROTID ARTERY: Origin is obscured by beam hardening artifact. Normal in course and caliber to the level of the bifurcation. -CERVICAL RIGHT INTERNAL CAROTID ARTERY: Normal opacification without focal stenosis or occlusion. -LEFT COMMON CAROTID ARTERY: Normal in course and caliber to the level of the bifurcation. -CERVICAL LEFT INTERNAL CAROTID ARTERY: Mild calcific atherosclerotic disease of the carotid bulb. There is no hemodynamically significant stenosis. -CERVICAL RIGHT VERTEBRAL ARTERY: Codominant. Normal in course and caliber into the skull base. -CERVICAL LEFT VERTEBRAL ARTERY: Codominant. Normal in course and caliber into the skull base. OTHER, SOFT TISSUES: -No lymphadenopathy or mass. No abnormal fluid collection or soft tissue swelling. -Normal thyroid. -Imaged superior mediastinal structures normal. -Imaged lung apices clear. CTA OF THE BRAIN: -INTRACRANIAL INTERNAL CAROTID ARTERIES: No focal stenosis or occlusion. Mild multifocal atherosclerotic calcifications are present. -RIGHT ANTERIOR CEREBRAL ARTERY: Normal A1 segment.. Normal arborization of the distal segments. -LEFT ANTERIOR CEREBRAL ARTERY: Normal A1 segment.. Normal arborization of the distal segments. -RIGHT MIDDLE CEREBRAL ARTERY: Normal M1 segment of the MCA without focal stenosis or occlusion. Normal arborization of the distal segments. -LEFT MIDDLE CEREBRAL ARTERY: Normal M1 segment of the MCA without focal stenosis or occlusion. Normal arborization of the distal segments. -RIGHT VERTEBRAL ARTERY V4: Normal in course and caliber. Normal PICA branch. -LEFT VERTEBRAL ARTERY V4: Normal in course and caliber. Normal PICA branch. -BASILAR ARTERY: Normal without focal stenosis or occlusion. Normal appearance of the proximal superior cerebellar arteries. Normal basilar tip. -RIGHT POSTERIOR CEREBRAL ARTERY: Normal P1 segment. Normal opacification of the distal BUSINESS ENTERPRISE OFFICER segments. -LEFT POSTERIOR CEREBRAL ARTERY: The P1 segment is diminutive. There is opacification of the distal BUSINESS ENTERPRISE OFFICER segments. -POSTERIOR COMMUNICATING ARTERIES: Present and small on the right greater than left. CT/CT angio head neck IMPRESSION: NONCONTRAST HEAD CT: 1. No intracranial hemorrhage or mass effect. No CT evidence of acute territorial infarct. CTA NECK: No hemodynamically significant stenosis. CTA HEAD: No hemodynamically significant stenosis. Communication sent to GRETCHEN Winter at 14:06 ET Electronically signed by: Chang Del Cid MD 09/28/2024 02:06 PM EDT Dictated By: Chang Del Cid MD Signed By: <Electronically signed by Chang Del Cid MD in OV> 09/28/24 1406 DD/ 1308 TD/TT: 09/28/24 1340 Health Education Aide: [facility] External Provider IMG CT PROCEDURES Final Result * (ABNORMAL) CBC auto differential (09/28/2024 12:35 PM EDT) White Blood Count 8.2 4.8 - 10.8 X10*3/uL [facility] Red Blood Count 3.99(L) 4.20 - 5.50 X10*6/uL [facility] Hemoglobin 11.8(L) 12.0 - 16.0 g/dl [facility] Hematocrit 36.2(L) 37.0 - 47.0 % [facility] Mean Corpuscular Volume 90.7 80.0 - 98.0 fL [facility] Mean Corpuscular Hemoglobin 29.6 27.0 - 33.0 pg [facility] Mean Corpuscular HGB Conc 32.6 31.0 - 35.0 g/dl [facility] Red Cell Distribution Width 12.6 11.0 - 16.0 % [facility] Platelet Count 354 160 - 400 X10*3/uL [facility] Mean Platelet Volume 9.8 9.4 - 12.3 fL [facility] Neutrophils Percent Auto 68.2 45 - 73 % [facility] Imm Gran Pct Auto 0.6(H) 0.0 - 0.4 % [facility] Lymphocytes Percent Auto 23.6 20 - 40 % [facility] Monocytes Percent Auto 6.1 2 - 11 % [facility] Eosinophils Percent Auto 1.0 0 - 4 % [facility] Basophils Percent Auto 0.5 0 - 2 % [facility] NRBC Pct Auto 0.0 0.0 - 0.2 /100WBC [facility] Neutrophils Absolute Auto 5.6 2.0 - 8.3 x10*3/uL [facility] Imm Gran Abs Auto 0.05(H) 0.00 - 0.03 X10*3/uL [facility] Lymphocytes Absolute Auto 1.9 1.2 - 4.9 X10*3/uL [facility] Monocytes Absolute Auto 0.5 0.1 - 1.2 X10*3/uL [facility] Eosinophils Absolute Auto 0.1 0.0 - 0.4 X10*3/uL [facility] Basophils Absolute Auto 0.0 0.0 - 0.2 X10*3/uL [facility] NRBC Abs Auto 0.000 0.0 - 0.012 X10*3/uL [facility] 09/28/2024 12:3 5 PM EDT 09/28/2024 12:39 PM EDT Generic External Data Provider LAB BLOOD ORDERAB LES Final Result Performing Organization Address [facility] Co de Phone Number [facility] [address] [place] [address] [phone] * Prothrombin Time-INR (09/28/2024 12:35 PM EDT) Prothrombin Time 11.0 10.9 - 12.4 SEC [facility] INTERNATIONAL NORM RATIO 1.0 0.9 - 1.1 [facility] Comment:INTERNATIONAL NORMAL IZED RATIO (INR) REFERENCE RANGES Reference RangeFor patients not on anticoagulant therapy: 0.9 - 1.1INR ranges for oral anticoagulanttherapy:For prevention and treatment of venous thrombosis and pulmonary embolism: 2.0 - 3.0For acute myocardial infarction with aspirin therapy: 2.0 - 3.0For acute myocardial infarction without aspirin therapy: 3.0 - 4.0For patients with mechanical prosthetic heart valves: 2.5 - 3.5 09/28/2024 12:3 5 PM EDT 09/28/2024 12:39 PM EDT [employer] External Data Provider LAB BLOOD ORDERAB LES Final Result Performing Organization Address [facility] Co de Phone Number [facility] [address] [place] [phone] * (ABNORMAL) Comprehensive Metabolic Panel (09/28/2024 12:35 PM EDT) Sodium 140 135 - 145 mmol/L [facility] Potassium 4.9 3.3 - 5.1 mmol/L [facility] Comment:Mild Hemolysis.Inter pret result with caution Chloride 107 96 - 108 mmol/L [facility] Carbon Dioxide 25 22 - 29 mmol/L [facility] Anion Gap 13 12 - 20 [facility] Urea Nitrogen (BUN) 26(H) 9 - 16 mg/dL [facility] Creatinine, Serum 0.99 0.5 - 1.4 mg/dL [facility] Creatinine Clr Calc Pharmacy 71.5 [facility] Comment:Provided height and weight: 162.56 cm,118 kg.eGFR (calculated from the MDRD study equation) and eCrCl(calculated from the Cockcroft-Gault equation) are based ondifferent parameters and may not yield comparable results.If eCrCl result is absurd, please check patient'sheight/weight. Estimated Glomerular Filt Rate 56 [facility] Comment:Chronic Kidney Disea se: Estimated GFR < 60 mL/min/1.89c9Djpqop Kidney Disease: Estimated GFR < 15 mL/min/1.73m2 Glucose 88 60 - 115 mg/dL [facility] Calcium 9.4 8.4 - 10.2 mg/dL [facility] Bilirubin, Total 0.3 0.0 - 1.0 mg/dL [facility] Aspartate Amino Transferase 35(H) 5 - 31 U/L [facility] Comment:Mild Hemolysis.Inter pret result with caution Alanine Aminotransferase 10 0 - 31 U/L [facility] Total Protein 7.6 6.5 - 8.0 g/dL [facility] Comment:Mild Hemolysis.Inter pret result with caution Albumin Level 3.8 3.5 - 5.0 g/dL [facility] Alkaline Phosphatase 59 39 - 117 U/L [facility] 09/28/2024 12:3 5 PM EDT 09/28/2024 12:39 PM EDT us Generic External Data Provider LAB BLOOD ORDERAB LES Final Result [facility] [address] [place] [phone] * Culture, Urine, Routine (09/28/2024 12:00 AM EDT) Urine Urine specimen obtained by clean catch procedure / Unknown 09/28/2024 09/28/2024 Comment:CC Narrative [facility] - 09/30/2024 12:02 PM EDT Urine Culture Report Result Urine Culture > 100,000 cfu/ml Urine Culture Mixed bacterial janis characteristic of Urine Culture urogenital contamination. Specimen Source: Urine clean catch Generic External Data Provider LAB MICROBIOLOGY - GENERAL ORDERABLES Final Result [facility] [address] [place] [phone] * OCT, Retina - OU - Both Eyes (09/10/2024 10:30 AM EDT) Vicki Rankin, OD - 09/28/2024 10:55 AM EDT OCT RETINA INTERPRETATION Optical Coherence Tomography Interpretation Report Reliability: OD: SS 46 - adequate quality image OS: SS 42 - adequate quality image Measurements: Central subfoveal thickness OD: 214 microns OS: 188 microns Test findings: OD: Multiple small drusenoid PEDs within macular region, (+) partial PVD, (-) SRF/IRF. All layers intact. OS: Large PED with pigment migration nasal to fovea, severe drusen throughout macular region. (-) SRF/IRF. All layers intact. Impression and Plan: Baseline imaging today. Refer to retinal for possible treatment of large macular PED left eye (OS) Vicki Zapata OD OPHTH TOMOGRAPHY Edited Result - Final * (ABNORMAL) Lipid Panel with Reflex to Direct LDL (03/24/2024 1:04 PM EST) Triglycerides 139 <150 mg/dL [facility] Comment:Slight Lipemia.Nigel able Triglyceride: less than 150 mg/dLBorderline High Triglyceride 150-199 mg/dLHigh Triglyceride: 200-499 mg/dLVery High Triglyceride: greater than or equal to 5OO mg/dL Cholesterol 179 <200 mg/dL [facility] Comment:Desirable Cholestero l: less than 200 mg/dLBorderline High Cholesterol: 200-239 mg/dLHigh Cholesterol: greater than 239 mg/dL LDL Cholesterol Calculated 111(H) <100 mg/dL [facility] Comment:Desirable LDL: less than 100 mg/dLNear Optimal/Above Optimal LDL: 110- 129 mg/dLBorderline High LDL: 130-159 mg/dLHigh LDL: 160-189 mg/dLVery High LDL: greater than or equal to 190 mg/dL HDL Cholesterol 41 >40 mg/dL [facility] Comment:Desirable HDL: great er than 40 mg/dL Note: This HDL assay may give artificially low results in patients with liver disease. Blood 03/24/2024 1:04 PM EST 03/24/2024 3:56 PM EST us Kate Cesar MD LAB BLOOD ORDERABLES Fin al Result [facility] [address] [place] [phone] * MAMMO BREAST JOSE JUAN ADDTL VIEW RIGHT (09/15/2021 2:26 PM EDT) Anatomical Region Laterality Modality Breast Bilateral Mammography 09/15/2021 2:26 PM EDT Narrative 09/16/2021 8:32 AM EDT Refer to Fove for result details Legacy Procedure: MAMMO BREAST JOSE JUAN ADDTL VIEW RIGHT Procedure Note Provider, MD Erik - 06/03/2022 Refer to Fovea for result details Legacy Procedure: MAMMO BREAST JOSE JUAN ADDTL VIEW RIGHT us Agata Reza MD IMG BI PROCEDURES Final Resul t * Liquid-based Pap (11/04/2018 10:13 PM EDT) Other Findings FUNGAL ORGANISMS MORPHOLOGICALLY CONSISTENT WITH SD SPP [facility] HPV REFLEX? HPV High Risk Regardless [facility] CYTOLOGY CVX/VAG DOC CYTO NEGATIVE FOR INTRAEPITHELIAL LESION OR MALIGNANCY [facility] LAB AP EMBEDDED IMAGES [facility] Other Findings REACTIVE CELLULAR CHANGES ASSOCIATED WITH INFLAMMATION [facility] Additional Information The Pap test [...] AP CASE REPORT First Screen: Arlet Roman [facility] SH LAB AP AUTOMOBILE REPAIR SERVICE ESTIMATOR SPECIMEN ADEQUACY Satisfactory for evaluation, endocervical/trans formation zone component present [facility] Other Findings PLEASE REFER TO THE SEPARATE REPORT FOR THE HPV RESULT [facility] Additional Information is evaluated on a regular repetitive basis and clinically correlated. [facility] LAB AP CASE REPORT Pathologist: Amos Umanzor MD [facility] Additional Information Suspicious signs or symptoms may warrant follow-up studies regardless of [facility] Additional Information Pap test findings. [facility] AP CASE REPORT Specimen: Liquid-Based Pap, Screening, Vagina, Cloudy [facility] Additional Information [facility] Additional Information CPT 06754 [facility] LAB AP CASE REPORT Gynecologic Cytology Case: [id number] [facility] LAB AP CASE REPORT Authorizing Provider: Agata Reza MD Collected: 11/04/2018 2213 [facility] LAB AP CASE REPORT Ordering Location: [facility] Received: 11/04/2018 2213 [facility] Clinical Information Z01.419 Encounter for gynecological examination without abnormal finding [facility] Clinical Information [facility] 11/04/2018 10:1 3 PM EDT us Agata Reza MD LAB CYTOLOGY ORDERABLES Final Result [facility] [address] * HPV DNA XXX Ql Amp [...] DNA CVX QL PROBE+SIG AMP Negative Negative [facility] Comment:Testing did not dete ct the presence of high-risk HPV type 16. 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
--- OUTSIDE RECORDS SUMMARY | 2024-12-01 18:41 | XMS_ITS | Encounter Summary ---
Author Organization [employer] Address [address] [facility] 7[address] [place] [address] Care Team Providers Care Upholstery Trimmer Name Role Phone Anna Parnell MD Primary Care Provider [phone] Kate Cesar MD Primary Care Provider + Encounter Details Date Type Department Care Team (Late st Contact Info) Description 07/24/2023 Abstract HF [facility] PRIMARY/PEDS [address] [place] [address], [address] [phone] Anna Parnell MD [address] [place] [phone] Social History Tobacco Use Types Packs/Day Years [...] Description 03/15/2025 10:30 AM EST Office Visit [facility] [address] [place] [phone] TarVicki fuller, OD [address] [place] [address] documented as of this encounter Visit Diagnoses Not on filedocumented in this encounter Additional Health Concerns Assessment Noted Time PHQ-9 Depression Total Score: 6 09/11/19 23 12:43 PM EDT documented as of this encounter Care Teams Upholstery Trimmer Relationship Specialty Start Date End Date Anna Parnell MD [address] [place] [address] [phone] PCP - General Internal Medicine 06/10/23 10/31/23 Kate Cesar MD [address] [place] [phone] PCP - General Internal Medicine 03/24/24 documented as of this encounter
--- OUTSIDE RECORDS SUMMARY | 2024-12-01 18:41 | XMS_ITS | Encounter Summary ---
Author Organization [employer] Address [address] [place] [address] Care Team Providers Care Keno Writer/Runner Name Role Phone Cheri Gallardo MD Primary Care Provider [phone] Encounter Details Date Type Department Care Team (Late st Contact Info) Description 09/30/2024 Lab Requisition [facility] - Main Lab [address] [facility] [place] [address] Cheri Gallardo MD [address] [place] [address] Essential (primary) hypertension; Vitamin D deficiency, unspecified; Gastro-esophageal reflux disease without esophagitis; Heart failure, unspecified (CMS/HCC V24, CMS/HCC V28) Social History Tobacco Use Types Packs/Day Years Used Date Smoking Tobacco: Never Assessed Comments Unknown Sex and Gender Information Value Date Recorded Sex Assigned at Not on file Legal Sex Female 10:05 AM EDT Gender Identity Not on file Sexual Orientation Not on file documented as of this encounter Plan of Treatment Not on file documented as of this encounter Procedures Procedure Name Priority Date/Time Associated Diagnosis Comments VITAMIN B12 AND FOLATE Routine 5:14 AM EDT Essential (primary) hypertension Vitamin D deficiency, unspecified Gastro-esophageal reflux disease without esophagitis Heart failure, unspecified (CMS/HCC V24, CMS/HCC V28) VITAMIN D 25 HYDROXY Routine 09/30/2024 5:14 AM EDT Essential (primary) hypertension Vitamin D deficiency, unspecified Gastro-esophageal reflux disease without esophagitis Heart failure, unspecified (CMS/HCC V24, CMS/HCC V28) COMPLETE BLOOD COUNT Routine 09/30/2024 5:14 AM EDT Essential (primary) hypertension Vitamin D deficiency, unspecified Gastro-esophageal reflux disease without esophagitis Heart failure, unspecified (CMS/[facility] V24, CMS/[facility] V28) IRON Routine 09/30/2024 5:14 AM EDT Essential (primary) hypertension Vitamin D deficiency, unspecified Gastro-esophageal reflux disease without esophagitis Heart failure, unspecified (CMS/HCC V24, CMS/[facility] V28) COMPREHENSIVE METABOLIC PANEL Routine 09/30/2024 5:14 AM EDT Essential (primary) hypertension Vitamin D deficiency, unspecified Gastro-esophageal reflux disease without esophagitis Heart failure, unspecified (CMS/HCC V24, CMS/[facility] V28) documented in this encounter Results * Iron (09/30/2024 5:14 AM EDT) Pathologist [facility] Iron 48 40 - 150 mcg/dL LAB CHEMISTRY METHOD 09/30/2024 11:12 AM EDT [facility] Blood Venous blood specimen / Unknown Venipuncture / Unknown 09/30/2024 5:14 AM EDT 09/30/2024 10:11 AM EDT Cheri Gallardo MD LAB BLOOD ORDERABLES Final Resul t [facility] [address] [place] [address], * Vitamin B12 and folate (09/30/2024 5:14 AM EDT) Pathologist [facility] Vitamin B-12 362 250 - 900 pcg/mL LAB CHEMISTRY METHOD 09/30/2024 11:35 AM EDT [facility] Folate 4.2 2.8 - 17.0 ng/ml LAB CHEMISTRY METHOD 09/30/2024 11:35 AM EDT [facility] Blood Venous blood specimen / Unknown Venipuncture / Unknown 09/30/2024 5:14 AM EDT 09/30/2024 10:11 AM EDT us Cheri Gallardo MD LAB BLOOD ORDERABLES Final Resul t Performing Organization Address [facility]/ZIP Co de Phone Number [facility] [address] [place] [address], [place] [phone] * (ABNORMAL) Vitamin D 25 hydroxy (09/30/2024 5:14 AM EDT) [facility] Vit D, 25-Hydroxy 91.4(H) 30.0 - 80.0 ng/mL LAB CHEMISTRY METHOD 09/30/2024 12:44 PM EDT [facility] Blood Venous blood specimen / Unknown Venipuncture / Unknown 09/30/2024 5:14 AM EDT 09/30/2024 10:11 AM EDT us Cheri Gallardo MD LAB BLOOD ORDERABLES Final Resul t Performing Organization Address [facility] de Phone Number [facility] [address] [place] [address], [place] [phone] * (ABNORMAL) Comprehensive metabolic panel (09/30/2024 5:14 AM EDT) [facility] Sodium 141 133 - 145 mmol/L LAB CHEMISTRY METHOD 09/30/2024 11:35 AM EDT [facility] Potassium 4.0 3.5 - 5.5 mmol/L LAB CHEMISTRY METHOD 09/30/2024 11:35 AM EDT [facility] Chloride 106 96 - 110 mmol/L LAB CHEMISTRY METHOD 09/30/2024 11:35 AM EDT [facility] CO2 27 21 - 32 mmol/L LAB CHEMISTRY METHOD 09/30/2024 11:35 AM EDT [facility] Anion Gap 8 3 - 11 LAB CHEMISTRY METHOD 09/30/2024 11:35 AM EDT [facility] Glucose 69(L) 70 - 100 mg/dL LAB CHEMISTRY METHOD 09/30/2024 11:35 AM [facility] BUN 16 5 - 25 mg/dL LAB CHEMISTRY METHOD 09/30/2024 11:35 AM [facility] Creatinine 0.91 0.50 - 1.10 mg/dL LAB CHEMISTRY METHOD 09/30/2024 11:35 AM [facility] eGFR 70 >=60 mL/min/1. 73m2 LAB CHEMISTRY METHOD 09/30/2024 11:35 AM [facility] Comment:Calculation based on the Chronic Kidney Disease Epidemiology Collaboration (CKD-EPI) equation refit without adjustment for race. BUN/Creatinine Ratio 17.6 LAB CHEMISTRY METHOD 09/30/2024 11:35 AM [facility] Calcium 9.7 8.5 - 10.5 mg/dL LAB CHEMISTRY METHOD 09/30/2024 11:35 AM [facility] AST (SGOT) 10 10 - 42 unit/L LAB CHEMISTRY METHOD 09/30/2024 11:35 AM [facility] ALT (SGPT) 14 10 - 60 unit/L LAB CHEMISTRY METHOD 09/30/2024 11:35 AM [facility] Alkaline Phosphatase 65 42 - 121 unit/L LAB CHEMISTRY METHOD 09/30/2024 11:35 AM [facility] Total Protein 6.5 6.0 - 8.0 g/dL LAB CHEMISTRY METHOD 09/30/2024 11:35 AM [facility] Albumin 3.1(L) 3.2 - 5.0 g/dL LAB CHEMISTRY METHOD 09/30/2024 11:35 AM [facility] Total Bilirubin 0.4 0.0 - 1.4 mg/dL LAB CHEMISTRY METHOD 09/30/2024 11:35 AM [facility] Blood Venous blood specimen / Unknown Venipuncture / Unknown 09/30/2024 5:14 AM EDT 09/30/2024 10:11 AM EDT us Cheri Gallardo MD LAB BLOOD ORDERABLES Final Resul t [facility] [address] [place] [address], [place] [phone] * Complete blood count (09/30/2024 5:14 AM EDT) WBC 8.3 4.8 - 10.8 K/mcL LAB HEMETOLOGY METHOD 09/30/2024 10:37 AM EDT [facility] RBC 3.90 3.80 - 4.80 M/mcL LAB HEMETOLOGY METHOD 09/30/2024 10:37 AM EDT [facility] Hemoglobin 11.5 11.5 - 16.0 g/dL LAB HEMETOLOGY METHOD 09/30/2024 10:37 AM EDT [facility] Hematocrit 35.8 35.0 - 47.0 % LAB HEMETOLOGY METHOD 09/30/2024 10:37 AM EDT [facility] MCV 92.7 79.0 - 98.0 FL LAB HEMETOLOGY METHOD 09/30/2024 10:37 AM EDT [facility] MCH 29.8 27.0 - 32.0 pcg LAB HEMETOLOGY METHOD 09/30/2024 10:37 AM EDT [facility] MCHC 32.1 32.0 - 37.0 g/dL LAB HEMETOLOGY METHOD 09/30/2024 10:37 AM EDT [facility] RDW 12.7 11.0 - 15.0 % LAB HEMETOLOGY METHOD 09/30/2024 10:37 AM EDT [facility] Platelets 337 130 - 400 K/mcL LAB HEMETOLOGY METHOD 09/30/2024 10:37 AM EDT [facility] MPV 10.2 7.0 - 11.0 FL LAB HEMETOLOGY METHOD 09/30/2024 10:37 AM EDT [facility] NRBC 0.0 <1.0 % LAB HEMETOLOGY METHOD 09/30/2024 10:37 AM EDT [facility] NRBC Absolute 0.00 <0.10 K/mcL LAB HEMETOLOGY METHOD 09/30/2024 10:37 AM EDT [facility] Blood Venous blood specimen / Unknown Venipuncture / Unknown 09/30/2024 5:14 AM EDT 09/30/2024 10:11 AM EDT Cheri Gallardo MD LAB BLOOD ORDERABLES Final Resul t [facility] [address] [place] [address], documented in this encounter Visit Diagnoses Diagnosis Essential (primary) hypertension Unspecified essential hypertension Vitamin D deficiency, unspecified Gastro-esophageal reflux disease without esophagitis Heart failure, unspecified (CMS/HCC V24, CMS/HCC V28) Heart failure, unspecified documented in this encounter Care Teams Keno Writer/Runner Relationship Specialty Start Date End Date Cheri Gallardo MD [address] [place] [address] [address] [place] [address] PCP - General Geriatric Medicine 09/30/24 documented as of this encounter
--- OUTSIDE RECORDS SUMMARY | 2024-12-01 18:41 | XMS_ITS | Encounter Summary ---
Author Organization [employer] Address [address] [facility] 7 [place] [address] Care Team Providers Care Animal Nutritionist Name Role Phone Kate Cesar MD Primary Care Provider + Reason for Visit * Reason Onset Date Comments FYI / ORDERS 09/23/2024 Encounter Details Date Type Department Care Team (Late st Contact Info) Description 09/23/2024 Telephone HF [facility] PRIMARY/PEDS [address] [place] [phone] Anna Parnell MD [address] [place] [phone] FYI / ORDERS Social History Tobacco Use Types Packs/Day Years [...] with others, in a hotel, in a mcfp, living outside on the street, on a [...] PM EDT documented as of this encounter Miscellaneous Notes * Telephone Encounter - Rio Christy RN - 09/24/2024 9:22 AM EDT Patient no longer under our care, seen at [facility], call placed to Tamar and made aware, sending to med records to melissa as transferred. * Telephone Encounter - Edel Beck - 09/23/2024 3:00 PM EDT [facility] to let Dr. Parnell know she will be resending orders to Provider soon Orders include Plan of care and Frequency evaluation Tamar's best call back #: [phone] documented in this encounter Plan of Treatment Upcoming Encounters Date Type Department Care Team (Late st Contact Info) Description 03/15/2025 10:30 AM EST Office Visit [facility] [address] [place] [phone] Vicki Zapata, OD [address] [place] [address] documented as of this encounter Visit Diagnoses Not on filedocumented in this encounter Additional Health Concerns Assessment Noted Time PHQ-9 Depression Total Score: 17 025 1:02 PM EST documented as of this encounter Care Teams Animal Nutritionist Relationship Specialty Start Date End Date Kate Cesar MD [address] [place] [phone] PCP - General Internal Medicine 03/24/24 documented as of this encounter
--- OUTSIDE RECORDS SUMMARY | 2024-12-01 18:41 | XMS_ITS | Encounter Summary ---
Author Organization [employer] Address 75 [facility] 7t [place] [address] Care Team Providers Care Television Equipment Operator Name Role Phone Kate Cesar MD Primary Care Provider + Reason for Visit * Reason Onset Date Comments chart prep 11/26/2024 Encounter Details Date Type Department Care Team ([facility] st Contact Info) Description 11/26/2024 Telephone [facility] MEDICINE [address] [place] [address] Liz Capone, ANP [address] [place] [address] chart prep Social History Tobacco Use Types Packs/Day Years [...] encounter Miscellaneous Notes * Telephone Encounter - Daisy Sweet MA - 11/26/2024 9:14 AM EDT Chart Prep Labs: done Images: done Referrals: complete Vaccines due: Covid, Flu, Tdap, RSV, and Zoster Screenings: colonoscopy and mammogram Overdue care gaps: Not applicable documented in this encounter Plan of Treatment Upcoming Encounters Date Type Department Care Team (Late st Contact Info) Description 03/15/2025 10:30 AM EST Office Visit [facility] OPTOMETRY [address] [place] [address] Vicki Zapata, OD [address] [place] [address] documented as of this encounter Visit Diagnoses Not on filedocumented in this encounter Additional Health Concerns Assessment Noted Time PHQ-9 Depression Total Score: 17 025 1:02 PM EST documented as of this encounter Care Teams Television Equipment Operator Relationship Specialty Start Date End Date Kate Cesar MD [address] [place] [address] PCP - General Internal Medicine 03/24/24 documented as of this encounter
--- OUTSIDE RECORDS SUMMARY | 2024-12-01 18:41 | XMS_ITS | Encounter Summary ---
Author Organization [employer] Address 75 [facility] 7t [place] [address] Care Team Providers Care Group Burner Machine Name Role Phone Kate Cesar MD Primary Care Provider + Reason for Visit * Reason Onset Date Comments appt change 12/01/2024 Encounter Details Date Type Department Care Team ([facility] st Contact Info) Description 12/01/2024 Telephone [facility] MEDICINE [address] [place] [address] Kate Cesar MD 230 [place], [place] [phone] appt change Social History Tobacco Use Types Packs/Day Years [...] with others, in a hotel, in a mcc, living outside on the street, on a [...] encounter Miscellaneous Notes * Telephone Encounter - Ronel Smith MA - 12/01/2024 3:46 PM EDT TC to pt regarding appointment change due to provider being remote in the AM & in office in thePM. 2 TC attempts to offer appts for the same day, unable to VM due to phone being disconnected. If PT shows up to the office please inform her the reason the appt was cancelled. R/s the patient documented in this encounter Plan of Treatment Upcoming Encounters Date Type Department Care Team (Late st Contact Info) Description 03/15/2025 10:30 AM EST Office Visit [facility] OPTOMETRY [address] [place] [address] Vicki Zapata, OD [address] [place] [address] documented as of this encounter Visit Diagnoses Not on filedocumented in this encounter Additional Health Concerns Assessment Noted Time PHQ-9 Depression Total Score: 20 025 3:34 PM EDT documented as of this encounter Care Teams Group Burner Machine Relationship Specialty Start Date End Date Kate Cesar MD [address] [place] [address] PCP - General Internal Medicine 03/24/24 documented as of this encounter
== END 2024-12-01 16:23 | disposition home or self-care (01) ==
LOC: HO.HHCL 16:22
PROVIDERS: PCP Nurse Practitioner Primary Care; Visit Provider Nurse Practitioner Primary Care
DX: I10 Essential (primary) hypertension (principal); R82.90 Unspecified abnormal findings in urine
CPT/HCPCS: 82043; 82570; 87086; 87088; 87186

== ENCOUNTER 2024-12-03 11:08 | Outpatient (REF) | payer OTHER, SELFPAY ==
[2024-12-03 13:32] LABS: Hemoglobin A1C 121.4377 umol/L; Total Hemoglobin (HGBA1C) 3274.1047 umol/L
[2024-12-03 14:15] LABS: Alanine Aminotransferase 9 U/L (0-31); Albumin Level 4.2 g/dL (3.5-5.0); Alkaline Phosphatase 67 U/L (39-117); Anion Gap 13 (12-20); Aspartate Amino Transferase 25 U/L (5-31); Blood Urea Nitrogen 39 mg/dL (9-16); Calcium 9.9 mg/dL (8.4-10.2); Carbon Dioxide 26 mmol/L (22-29); Chloride 103 mmol/L (96-108); Cholesterol 175 mg/dL (<200); Estimated Glomerular Filt Rate 46; HDL Cholesterol 41 mg/dL (>40); Potassium 4.4 mmol/L (3.3-5.1); Sodium 138 mmol/L (135-145); Total Protein 8.1 g/dL (6.5-8.0); Triglycerides 118 mg/dL (<150)
--- OUTSIDE RECORDS SUMMARY | 2024-12-03 15:40 | XMS_ITS | Encounter Summary ---
Author Organization [employer] Address 75 [facility] 7t [place] [address] Care Team Providers Care Oral And Maxillofacial Pathologist Name Role Phone Kate Cesar MD Primary Care Provider + Reason for Visit * Reason Onset Date Comments telephone call 12/03/2024 Encounter Details Date Type Department Care Team ([facility] st Contact Info) Description 12/03/2024 Telephone [facility] MEDICINE 230 [place], [place] [phone] Kate Cesar MD 230 [place], [place] [phone] telephone call Social History Tobacco Use Types Packs/Day Years [...] with others, in a hotel, in a fdc, living outside on the street, on a [...] encounter Miscellaneous Notes * Telephone Encounter - Mckenzie Ngo - 12/03/2024 11:43 AM EDT Pt walked in upset because her appointment had been cancelled I informed her they tried calling herto reschedule it but they couldn't; get a hold of her. She is requesting to switch pcp due to her being unprofessional she also said she hasn't seen her pcp in a while and its not fair to her. documented in this encounter Plan of Treatment Upcoming Encounters Date Type Department Care Team (Late st Contact Info) Description 02/12/2025 11:30 AM EST Office Visit [facility] MEDICINE [address] [place] [address] Kate Cesar MD [address] [place] [address] 03/15/2025 10:30 AM EST Office Visit [facility] OPTOMETRY [address] [place] [address] Luis Zapatassica, OD [address] [place] [address] documented as of this encounter Visit Diagnoses Not on filedocumented in this encounter Additional Health Concerns Assessment Noted Time PHQ-9 Depression Total Score: 20 025 3:34 PM EDT documented as of this encounter Care Teams Oral And Maxillofacial Pathologist Relationship Specialty Start Date End Date Kate Cesar MD [address] [place] [address] PCP - General Internal Medicine 03/24/24 documented as of this encounter
--- OUTSIDE RECORDS SUMMARY | 2024-12-03 15:40 | XMS_ITS | Encounter Summary ---
Author Organization [employer] Address 75 [facility] 7t [place] [address] Care Team Providers Care Site Operations Manager Name Role Phone Kate Cesar MD Primary Care Provider + Encounter Details Date Type Department Care Team (Late st Contact Info) Description 09/23/2024 Telephone [facility] PRIMARY/PEDS [address] [facility], [address] [place] [address] Kate Cesar MD [address] [place] [address] Social History Tobacco Use Types Packs/Day Years [...] with others, in a hotel, in a custodial, living outside on the street, on a [...] Description 02/12/2025 11:30 AM EST Office Visit [facility] MEDICINE 230 [place] [address] Kate Cesar MD [address] [place] [address] 03/15/2025 10:30 AM EST Office Visit [facility] OPTOMETRY [address] [place] [address] Vicki Zapata, OD [address] [place] [address] documented as of this encounter Visit Diagnoses Not on filedocumented in this encounter Additional Health Concerns Assessment Noted Time PHQ-9 Depression Total Score: 17 025 1:02 PM EST documented as of this encounter Care Teams Site Operations Manager Relationship Specialty Start Date End Date Kate Cesar MD [address] [place], [place] [phone] PCP - General Internal Medicine 03/24/24 documented as of this encounter
--- OUTSIDE RECORDS SUMMARY | 2024-12-03 15:40 | XMS_ITS | Encounter Summary ---
Author Organization [employer] Address 75 [facility] 7t [place] [address] Care Team Providers Care Automatic Pattern Edger Name Role Phone Kate Cesar MD Primary Care Provider + Reason for Visit * Reason Onset Date Comments appt change 12/01/2024 Encounter Details Date Type Department Care Team ([facility] st Contact Info) Description 12/01/2024 Telephone [facility] MEDICINE 230 [place] [address] Kate Cesar MD 230 [place], [place] [phone] appt change Social History Tobacco Use Types [...] with others, in a hotel, in a longterm, living outside on the street, on a [...] Description 02/12/2025 11:30 AM EST Office Visit [facility] MEDICINE 230 [place], [place] [phone] Kate Cesar MD [address] [place] [address] 03/15/2025 10:30 AM EST Office Visit [facility] OPTOMETRY [address] [place], [place] [phone] Vicki Zapata, OD [address] [place] [address] documented as of this encounter Visit Diagnoses Not on filedocumented in this encounter Additional Health Concerns Assessment Noted Time PHQ-9 Depression Total Score: 20 025 3:34 PM EDT documented as of this encounter Care Teams Automatic Pattern Edger Relationship Specialty Start Date End Date Kate Cesar MD [address] [place] [address] PCP - General Internal Medicine 03/24/24 documented as of this encounter
--- OUTSIDE RECORDS SUMMARY | 2024-12-03 15:40 | XMS_ITS | Encounter Summary ---
Author Organization [employer] Address 75 [facility] 7 [place] [address] Care Team Providers Care Supervisor Microwave Name Role Phone Kate Cesar MD Primary Care Provider + Reason for Visit * Reason Onset Date Comments FYI / ORDERS 09/23/2024 Encounter Details Date Type Department Care Team (Late st Contact Info) Description 09/23/2024 Telephone [facility] PRIMARY/PEDS [address] [place] [address] Anna Parnell MD [address] [place] [address] FYI / ORDERS Social History Tobacco Use [...] no longer under our care, seen at [facility], call placed to Tamar and made aware, sending to med records to melissa as transferred. * Telephone Encounter - Edel Beck - 09/23/2024 3:00 PM EDT Tamar from [facility] calling to let Dr. Parnell know she will be resending orders to Provider soon Orders include Plan of care and Frequency evaluation Tamar's best call back #: [phone] documented in this encounter Plan of Treatment Upcoming Encounters Date Type Department Care Team (Late st Contact Info) Description 02/12/2025 11:30 AM EST Office Visit [facility] MEDICINE [address] [place] [address] Kate Cesar MD [address] [place], [place] [phone] 03/15/2025 10:30 AM EST Office Visit [facility] OPTOMETRY [address] [place], [place] [phone] Vicki Zapata, OD 267 [place], [place] [phone] documented as of this encounter Visit Diagnoses Not on filedocumented in this encounter Additional Health Concerns Assessment Noted Time PHQ-9 Depression Total Score: 17 025 1:02 PM EST documented as of this encounter Care Teams Supervisor Microwave Relationship Specialty Start Date End Date Kate Cesar MD [address] [place] [address] PCP - General Internal Medicine 03/24/24 documented as of this encounter
--- OUTSIDE RECORDS SUMMARY | 2024-12-03 15:40 | XMS_ITS | Encounter Summary ---
Author Organization [employer] Address [address] [place] [address] 7t [place] [address] Care Team Providers Care Cashier Manager Name Role Phone NelsonMassiel [facility] Primary Care Provider Anna Garcia MD Primary Care Provider [phone] Kate Cesar MD Primary Care Provider + Encounter Details Date Type Department Care Team (Late st Contact Info) Description 04/02/[address] [facility] PRIMARY/PEDS [address] [place] [address], [address] [place] [address] Anita, Roxanne, VACC[employer] SOLUT[employer] SPECIALIST [address] [place] [address] [place] [address] Social History Tobacco Use Types Packs/Day Years [...] Department Care Team (Late Contact Info) Description 02/12/2025 11:30 AM EST Office Visit [facility] MEDICINE 230 [place], [place] [phone] Kate Cesar MD 230 [place] [address] 03/15/2025 10:30 AM EST Office Visit [facility] OPTOMETRY 267 [place], [place] [phone] Rogerjonny Vicki, OD [address] [place] [address] documented as of this encounter Visit Diagnoses Not on filedocumented in this encounter Care Teams Cashier Manager Relationship Specialty Start Date End Date Mass[facility] PCP - General 03/24/22 06/09/23 Anna Parnell MD [address] [place] [address] PCP - General Internal Medicine 06/10/23 10/31/23 Kate Cesar MD [address] [place] [address] PCP - General Internal Medicine 03/24/24 documented as of this encounter
--- OUTSIDE RECORDS SUMMARY | 2024-12-03 15:40 | XMS_ITS | Encounter Summary ---
Author Organization [employer] Address 75 [facility] 7t [place] [address] Care Team Providers Care Outbound Sales Executive Name Role Phone Kate Cesar MD Primary Care Provider + Reason for Visit * Reason Onset Date Comments telephone call 12/03/2024 Encounter Details Date Type Department Care Team ([facility] st Contact Info) Description 12/03/2024 Telephone [facility] MEDICINE [address] [place], [place] [phone] Kate Cesar MD 230 [place], [place] [phone] telephone call Social History Tobacco Use Types [...] with others, in a hotel, in a [facility], living outside on the street, on a [...] Telephone Encounter - Mckenzie Ngo - 12/03/2024 11:46 AM EDT Pt walked in requesting these items 1.Bed rail 2.Raised toilet seat 3.Commode (needs Oversized) 4.Shower chair 5.Recliner documented in this encounter Plan of Treatment Upcoming Encounters Date Type Department Care Team (Late st Contact Info) Description 02/12/2025 11:30 AM EST Office Visit [facility] MEDICINE [address] [place] [address] Kate Cesar MD 230 [place] [address] 03/15/2025 10:30 AM EST Office Visit [facility] OPTOMETRY [address] [place] [address] Vicki Zapata, OD 267 [place] [address] documented as of this encounter Visit Diagnoses Not on filedocumented in this encounter Additional Health Concerns Assessment Noted Time PHQ-9 Depression Total Score: 20 025 3:34 PM EDT documented as of this encounter Care Teams Outbound Sales Executive Relationship Specialty Start Date End Date Kate Cesar MD [address] [place] [address] PCP - General Internal Medicine 03/24/24 documented as of this encounter
--- OUTSIDE RECORDS SUMMARY | 2024-12-03 15:41 | XMS_ITS | Encounter Summary ---
Author Organization [employer] Address [address] [place] [address] 7t [place] [address] Care Team Providers Care Professional Golf Tournament Player Name Role Phone Massiel Nelson [facility] Primary Care Provider Anna Garcia MD Primary Care Provider [phone] Kate Cesar MD Primary Care Provider + Encounter Details Date Type Department Care Team (Late Contact Info) Description 10/18/2022 Orders Only HF [facility] PRIMARY/PEDS [address] [place] [address], [address] [address] Massiel Nelson [facility] Social History Tobacco Use Types Packs/Day Years [...] Description 02/12/2025 11:30 AM EST Office Visit [facility] MEDICINE 230 [place], [place] [phone] Kate Cesar MD 230 [place], [place] [phone] 03/15/2025 10:30 AM EST Office Visit [facility] OPTOMETRY [address] [place], [place] [phone] Vicki Zapata, OD 267 [place] [address] documented as of this encounter Visit Diagnoses Not on filedocumented in this encounter Additional Health Concerns Assessment Noted Time PHQ-9 Depression Total Score: 6 09/11/19 23 12:43 PM EDT documented as of this encounter Care Teams Professional Golf Tournament Player Relationship Specialty Start Date End Date [facility] PCP - General 03/24/22 06/09/23 Anna Parnell MD [address] [place] [address] PCP - General Internal Medicine 06/10/23 10/31/23 Kate Cesar MD [address] [place] [address] PCP - General Internal Medicine 03/24/24 documented as of this encounter
--- OUTSIDE RECORDS SUMMARY | 2024-12-03 15:41 | XMS_ITS | Encounter Summary ---
Author Organization [employer] Address 75 [facility] 7t [place] [address] Care Team Providers Care Medical Case Manager Name Role Phone Anna Parnell MD Primary Care Provider [phone] Kate Cesar MD Primary Care Provider + Encounter Details Date Type Department Care Team (Late st Contact Info) Description 07/24/2023 Abstract [facility] PRIMARY/PEDS [address] [place] [address], [address] [phone] Anna Parnell MD [address] [place] [address] Social History Tobacco Use Types Packs/Day Years [...] Description 02/12/2025 11:30 AM EST Office Visit [facility] MEDICINE 230 [place] [address] Kate Cesar MD 230 [place] [address] 03/15/2025 10:30 AM EST Office Visit [facility] OPTOMETRY [address] [place] [address] Vicki Zapata, OD [address] [place] [address] documented as of this encounter Visit Diagnoses Not on filedocumented in this encounter Additional Health Concerns Assessment Noted Time PHQ-9 Depression Total Score: 6 09/11/19 23 12:43 PM EDT documented as of this encounter Care Teams Medical Case Manager Relationship Specialty Start Date End Date Anna Parnell MD [address] [place] [address] PCP - General Internal Medicine 06/10/23 10/31/23 Kate Cesar MD [address] [place] [phone] PCP - General Internal Medicine 03/24/24 documented as of this encounter
--- OUTSIDE RECORDS SUMMARY | 2024-12-03 15:41 | XMS_ITS | Clinical Summary ---
Author Organization [employer] Address [address] [facility] [address] [place] [address] Care Team Providers Care Contract Design Agent Name Role Phone Kate Cesar MD Primary [...] now with housing challenges, needs increase in [employer] support and hours Impaired balance as late [...] diet and exercise done today referral to saturation diver done Assessment & Plan (03/24/2024 2:39 PM [...] months. Will refer to Neurology. Patient or [employer] will call [facility] to arrange for transportation for these appointments [...] organization. Date Type Department Care Team Description 12/03/[address] [address] Kate Cesar MD telephone call 12/03/[address] [address] Kate Cesar MD telephone call 12/01/[address] [address] Kate Cesar MD appt change 11/27/2024 2:30 PM EDT Office Visit [address] [address] Liz Capone ANP Malodorous urine (Primary Dx); [...] Screening for tuberculosis 11/27/2024 Travel 11/26/[address] [address] Liz Capone ANP chart prep 10/28/2024 9:45 AM EDT Office Visit [facility] [address] [place] [phone] Evette Stiles NP Cerebrovascular accident (CVA), unspecified mechanism (CMS/HCC) (Primary Dx); 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 10/28/[address] [address] Kate Cesar MD Durable Medical Equipment 10/28/2024 Travel 10/27/[address] [address] Evette Stiles NP Chart Prep 10/24/[address] [address] Kate Cesar MD 10/16/2024 Patient Outreach [address] [address] Kate Cesar MD Transition Of Care (Tcm) (HDF - Scheduled ) 09/30/[address] [address] Kate Cesar MD FYI 09/29/2024 Orders Only GENERIC EXTERNAL DATA DEPARTMENT Provider, Generic External Data 09/28/2024 Orders Only GENERIC EXTERNAL DATA DEPARTMENT Provider, Generic External Data 09/24/[address] [address] Kate Cesar MD Referral 09/24/2024 Refill [facility] [address] [place] [phone] Karla Evans MD Mixed hyperlipidemia 09/23/2024 Telephone HF [facility] PRIMARY/PEDS [address] [place] [address], [address] [address] Anna Parnell MD FYI / ORDERS 09/23/2024 Telephone HF [facility] PRIMARY/PEDS [address] [place] [address], [address] [phone] Kate Cesar MD 09/14/[address] [address] Kate Cesar MD Appointment Request 09/10/2024 10:30 AM EDT Office Visit [facility] [address] [place] [address] Vicki Zapata, OD Early dry stage nonexudative [...] Description 02/12/2025 11:30 AM EST Office Visit [facility] [address] [place] [address] Kate Cesar MD [address] [place] [address] 03/15/2025 10:30 AM EST Office Visit [facility] [address] [place], [place] [phone] Vicki Zapata, OD [address] [place] [address] Health Maintenance Due Date Last Done Comments [...] 09/15/2021, Additional history exists COVID-19 Vaccine ( season) 2024 09/08/2021, 09/08/2021 Influenza Vaccine (#1) 2024 , 01/10/2022, 12/30/2020, Additional history exists SDOH Screening 03/12/2025 03/12/2024 Depression Monitoring 05/27/2025 11/27/2024, 025 Alcohol/Substance Use Screening 10/28/2025 10/28/2024 Tobacco Screening 11/27/2025 11/27/2024 Lipid Panel 12/03/2029 12/03/2024, 03/11, 06/19/2021 Cervical Cancer Screening Discontinued HPV/Cotest Discontinued [...] Procedure Name Priority Date/Time Associated Diagnosis Comments COMPREHENSIVE METABOLIC PANEL Routine 12/03/2024 11:29 AM EDT Essential hypertension HEMOGLOBIN A1C Routine 12/03/2024 11:29 AM EDT Mixed hyperlipidemia LIPID PANEL, STANDARD Routine 12/03/2024 11:29 AM EDT Mixed hyperlipidemia ALBUMIN, RANDOM URINE W/CREATININE Routine 12/01/2024 4:25 PM EDT Essential hypertension CULTURE, URINE, ROUTINE Routine 12/01/2024 4:25 PM EDT Malodorous urine AMB REFERRAL TO OPHTHALMOLOGY Routine 11/03/2024 Retinal [...] 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 Blood transfusions may impact the HbA1c concentration in the patient sample. Estimated Average Glucose 111 mg/dL [facility] Comment:eAG = Estimated ave rage glucose which is %A1C expressed asaverage glucose, using the formula of the [id number] Glucose study (ADAG), Diabetes Care, Vol.31,#8,Oct. 2007 Blood Venous blood specimen / Unknown 12/03/2024 11:29 AM EDT 12/03/2024 1:06 PM EDT Liz Capone [facility] LAB BLOOD ORDERABLES Final Resul t [facility] [address] [place] [phone] * (ABNORMAL) Lipid Panel, Standard (12/03/2024 11:29 AM EDT) Triglycerides 118 <150 mg/dL [facility] Comment:Slight Lipemia.Nigel able Triglyceride: less than 150 mg/dLBorderline High Triglyceride 150-199 mg/dLHigh Triglyceride: 200-499 mg/dLVery High Triglyceride: greater than or equal to 5OO mg/dL Cholesterol 175 <200 mg/dL [facility] Comment:Desirable Cholestero l: less than 200 mg/dLBorderline High Cholesterol: 200-239 mg/dLHigh Cholesterol: greater than 239 mg/dL LDL Cholesterol Calculated 111(H) <100 mg/dL [facility] Comment:Desirable LDL: less than 100 mg/dLNear Optimal/Above Optimal LDL: 110- 129 mg/dLBorderline High LDL: 130-159 mg/dLHigh LDL: 160-189 mg/dLVery High LDL: greater than or equal to 190 mg/dL HDL Cholesterol 41 >40 mg/dL [facility] Comment:Desirable HDL: great er than 40 mg/dL Note: This HDL assay may give artificially low results in patients with liver disease. Blood Venous blood specimen / Unknown 12/03/2024 11:29 AM EDT 12/03/2024 1:06 PM EDT Counts include 234 beds at the [facility] LAB BLOOD ORDERABLES Final Resul t [facility] [address] [place] [phone] * (ABNORMAL) Comprehensive Metabolic Panel (12/03/2024 11:29 AM EDT) Only the most recent of2 resultswithin the time period is included. Sodium 138 135 - 145 mmol/L [facility] Potassium 4.4 3.3 - 5.1 mmol/L [facility] Chloride 103 96 - 108 mmol/L [facility] Carbon Dioxide 26 22 - 29 mmol/L [facility] Anion Gap 13 12 - 20 [facility] Urea Nitrogen (BUN) 39(H) 9 - 16 mg/dL [facility] Creatinine, Serum 1.18 0.5 - 1.4 mg/dL [facility] Estimated Glomerular Filt Rate 46 [facility] Comment:Chronic Kidney Disea se: Estimated GFR < 60 mL/min/1.72h4Jgrwxd Kidney Disease: Estimated GFR < 15 mL/min/1.73m2 Glucose 112 60 - 115 mg/dL [facility] Calcium 9.9 8.4 - 10.2 mg/dL [facility] Bilirubin, Total 0.3 0.0 - 1.0 mg/dL [facility] Aspartate Amino Transferase 25 5 - 31 U/L [facility] Alanine Aminotransferase 9 0 - 31 U/L [facility] Total Protein 8.1(H) 6.5 - 8.0 g/dL [facility] Albumin Level 4.2 3.5 - 5.0 g/dL [facility] Alkaline Phosphatase 67 39 - 117 U/L [facility] Blood Venous blood specimen / Unknown 12/03/2024 11:29 AM EDT 12/03/2024 1:06 PM EDT Liz Capone ANP LAB BLOOD ORDERABLES Final Resul t Performing Organization Address City/[facility] Co de Phone Number [facility] [address] [place] [phone] * Albumin, Random Urine W/Creatinine (12/01/2024 4:25 PM EDT) Creatinine, Urine 21.94 mg/dL [facility] Microalbumin Urine <5.0 mg/L [facility] Microalbum Creatinine Ratio Ur TNP <30 ug/mg cr [facility] Comment:Unable to calculate albumin/creatinine ratio due to lowmicroalbumin or creatinine result. Urine (Urine, Random) 12/01/2024 4:25 PM EDT 12/01/2024 6:39 PM EDT Liz Capone ANP LAB URINE ORDERABLES Final Resul t Performing Organization Address City/[facility] Co de Phone Number [facility] [address] [place] [phone] * Referral to Ophthalmology (11/03/2024) Vicki Zapata OD OUTPATIENT REFERRAL ORDERABLES Final Result * SARS-CoV-2 RNA, Influenza A/B, and RSV RNA, Ql NAAT (09/29/2024 9:01 AM EDT) Influenza A PCR NEGATIVE Negative [facility] Influenza B PCR NEGATIVE Negative [facility] Resp Syncy Virus RNA Qual PCR NEGATIVE Negative [facility] SARS COV2 PCR NEGATIVE Negative [facility] Comment:All test results mus t [...] use by authorized laboratories.Testing performed on the [employer] GeneXpert utilizingreal-time RT-PCR.All SARS CoV2 and positive influenza A/B results arereported to [facility]. 09/29/2024 9:01 AM EDT 09/29/2024 9:04 AM EDT Generic External Data Provider LAB MICROBIOLOGY - GENERAL ORDERABLES Final Result [facility] [address] [place] [phone] * (ABNORMAL) Urinalysis, Complete, with Reflex to Culture (09/28/2024 1:44 PM EDT) Color Urine Yellow [facility] Appearance Urine Clear [facility] PH 5.5 5.0 - 9.0 [facility] Glucose Urine UA Negative Negative mg/dL [facility] Urine Blood Negative Negative [facility] Specific [employer] - Urine 1.015 1.005 - 1.025 [facility] Urine Protein Negative Neg-Trace mg/dL [facility] Urine Ketones Negative Negative mg/dL [facility] Nitrite Urine Positive(A) Negative [facility] Leukocyte Esterase Urine Moderate (2+)(A) Negative [facility] RBC Urine 0-2 0 - 2 /HPF [facility] Urine WBC 11-20(A) 0 - 5 /HPF [facility] Urine Squamous Epithelial Cell 6-10 0 - 2 /HPF [facility] Urine Bacteria 4+ None Seen [facility] Hyaline Casts, Urine 0-2 0 - 2 /LPF [facility] 09/28/2024 1:44 PM EDT 09/28/2024 1:47 PM EDT Narrative [facility] - 09/28/2024 1:54 PM EDT Urine, Clean Catch us Generic External Data Provider LAB URINE ORDERAB LES Final Result Performing Organization Address City/State/[facility] Co de Phone Number [facility] [address] [place] [address] [phone] * CTA Head Neck w/ and w/o Contrast (09/28/2024 1:08 PM EDT) Anatomical Region Laterality Modality Head, Neck Computed Tomogra phy 09/28/2024 1:08 PM EDT Narrative 09/28/2024 2:09 PM EDT [address] [address] [address] Scan Report Signed Patient: Alysa Luevano MR#: [id number] : 1960 Acct:[id number] Age/Sex: 63 / F ADM Date: 09/28/24 Loc: HO.ED Attending Dr: Ordering Physician: Dariela Nichols PA-C Date of Service: 09/28/24 Procedure(s): CT angio head neck Accession Number(s): [id number] cc: Kate Cesar MD; Dariela Nichols PA-C Report Number: [id number]: Total DLP = 1417.00 mGy-cm EXAMINATION: CT [...] vertex. The data was processed at the radiology ct technologist's workstation for generation of MIP sequences. [...] P1 segment. Normal opacification of the distal [employer] segments. -LEFT POSTERIOR CEREBRAL ARTERY: The P1 segment is diminutive. There is opacification of the distal [employer] segments. -POSTERIOR COMMUNICATING ARTERIES: Present and small [...] 09/28/24 1406 DD/ 1308 TD/TT: 09/28/24 1340 Shellfish Weigher: Procedure Note Donotuseinterpreter, Image - 09/28/[address] [address] [address] Scan Report Signed Patient: Charles Luevano#: [id number] : 9Acct:[id number] Age/Sex: 63 / FADM Date: 09/28/24 Loc: HO.ED Attending Dr: Ordering Physician: Darilea Nichols PA-C Date of Service: 09/28/24 Procedure(s): CT angio head neck Accession Number(s): [id number] cc: Kate Cesar MD; Dariela Nichols PA-C Report Number: [id number]: Total DLP = 1417.00 mGy-cm EXAMINATION: CT [...] vertex. The data was processed at the radiology ct technologist's workstation for generation of MIP sequences. [...] P1 segment. Normal opacification of the distal [employer] segments. -LEFT POSTERIOR CEREBRAL ARTERY: The P1 segment is diminutive. There is opacification of the distal [employer] segments. -POSTERIOR COMMUNICATING ARTERIES: Present and small [...] Del Cid MD 09/28/2024 02:06 PM EDT RP Dictated By: Chang Del Cid MD Signed By: <Electronically signed by Chang Del Cid MD in OV> 09/28/24 1406 DD/ 1308 TD/TT: 09/28/24 1340 Shellfish Weigher: [facility] External Provider IMG CT PROCEDURES Final Result * (ABNORMAL) CBC auto differential (09/28/2024 12:35 PM EDT) White Blood Count 8.2 4.8 - 10.8 X10*3/uL [facility] Red Blood Count 3.99(L) 4.20 - 5.50 X10*6/uL [facility] Hemoglobin 11.8(L) 12.0 - 16.0 g/dl [facility] Hematocrit 36.2(L) 37.0 - 47.0 % [facility] Mean Corpuscular Volume 90.7 80.0 - 98.0 fL [facility] Mean Corpuscular Hemoglobin 29.6 27.0 - 33.0 pg [facility] Mean Corpuscular HGB Conc 32.6 31.0 - 35.0 g/dl [facility] Red Cell Distribution Width 12.6 11.0 - 16.0 % [facility] Platelet Count 354 160 - 400 X10*3/uL [facility] Mean Platelet Volume 9.8 9.4 - 12.3 fL [facility] Neutrophils Percent Auto 68.2 45 - 73 % [facility] Imm Gran Pct Auto 0.6(H) 0.0 - 0.4 % [facility] Lymphocytes Percent Auto 23.6 20 - 40 % [facility] Monocytes Percent Auto 6.1 2 - 11 % [facility] Eosinophils Percent Auto 1.0 0 - 4 % [facility] Basophils Percent Auto 0.5 0 - 2 % [facility] NRBC Pct Auto 0.0 0.0 - 0.2 /100WBC [facility] Neutrophils Absolute Auto 5.6 2.0 - 8.3 x10*3/uL [facility] Imm Gran Abs Auto 0.05(H) 0.00 - 0.03 X10*3/uL [facility] Lymphocytes Absolute Auto 1.9 1.2 - 4.9 X10*3/uL [facility] Monocytes Absolute Auto 0.5 0.1 - 1.2 X10*3/uL [facility] Eosinophils Absolute Auto 0.1 0.0 - 0.4 X10*3/uL [facility] Basophils Absolute Auto 0.0 0.0 - 0.2 X10*3/uL [facility] NRBC Abs Auto 0.000 0.0 - 0.012 X10*3/uL [facility] 09/28/2024 12:3 5 PM EDT 09/28/2024 12:39 PM EDT us Generic External Data Provider LAB BLOOD ORDERAB LES Final Result Performing Organization Address City/State/[facility] Co de Phone Number [facility] [address] [place] [phone] * Prothrombin Time-INR (09/28/2024 12:35 PM EDT) Prothrombin Time 11.0 10.9 - 12.4 SEC [facility] INTERNATIONAL NORM RATIO 1.0 0.9 - 1.1 [facility] Comment:INTERNATIONAL NORMAL IZED RATIO (INR) [...] ORDERAB LES Final Result Performing Organization Address City/[facility] Co de Phone Number [facility] [address] [place] [phone] * Culture, Urine, Routine (09/28/2024 12:00 AM EDT) Urine Urine specimen obtained by clean catch procedure / Unknown 09/28/2024 09/28/2024 Comment:UACC Narrative [facility] - 09/30/2024 12:02 PM EDT Urine Culture Report Result Urine Culture > 100,000 cfu/ml Urine Culture Mixed bacterial janis characteristic of Urine Culture urogenital contamination. Specimen Source: Urine clean catch Generic External Data Provider LAB MICROBIOLOGY - GENERAL ORDERABLES Final Result Performing Organization Address [facility] Co de Phone Number [facility] [address] [place] [phone] * OCT, Retina - OU - Both Eyes (09/10/2024 10:30 AM EDT) Narrative Vicki Zapata, OD - 09/28/2024 10:55 AM EDT OCT [...] OPHTH TOMOGRAPHY Edited Result - Final * MAMMO BREAST JOSE JUAN ADDTL VIEW RIGHT (09/15/2021 2:26 PM EDT) Anatomical Region Laterality Modality Breast Bilateral Mammography 09/15/2021 2:26 PM EDT Narrative 09/16/2021 8:32 AM EDT Refer to Fovea for result details Legacy Procedure: MAMMO BREAST JOSE JUAN ADDTL VIEW RIGHT Procedure Note Provider, Historical, MD - 06/03/2022 Refer to Fovea for result [...] AP CASE REPORT First Screen: Arlet Roman [facility] SH LAB AP LACE BURN OUT TENDER SPECIMEN ADEQUACY Satisfactory for evaluation, endocervical/trans formation zone component present [facility] Other Findings PLEASE REFER TO THE SEPARATE REPORT FOR THE HPV RESULT [facility] Additional Information is evaluated on a regular repetitive basis and clinically correlated. [facility] LAB AP CASE REPORT Pathologist: Amos Umanzor MD [facility] Additional Information Suspicious signs or symptoms may warrant follow-up studies regardless of [facility] Additional Information Pap test findings. [facility] LAB AP CASE REPORT Specimen: Liquid-Based Pap, Screening, Vagina, Cloudy [facility] Additional Information [facility] Additional Information CPT 55531 [facility] LAB AP CASE REPORT Gynecologic Cytology Case: [id number] [facility] LAB AP CASE REPORT Authorizing Provider: Agata Reza MD Collected: 11/04/2018 2213 [facility] LAB AP CASE REPORT Ordering Location: [facility] Received: 11/04/2018 2213 [facility] Clinical Information Z01.419 Encounter for gynecological examination without abnormal finding [facility] Clinical Information [facility] 11/04/2018 10:1 3 PM EDT Agata Reza MD LAB CYTOLOGY ORDERABLES Final Result Performing Organization Address [facility] de Phone Number [facility] [address] * HPV DNA XXX Ql Amp Prb (11/04/2018 10:13 PM EDT) HPV18 DNA CVX QL PROBE+SIG AMP Negative Negative [facility] Comment:Testing did not dete ct the presence of high-risk HPV type 18. HPV I/H RISK 1 DNA CVX QL PROBE+SIG AMP Negative Negative [facility] Comment:Testing did not dete ct the presence of high risk HPV types: 31, 33, 35, 39, 45, 51, 52, 56, 58, 59, 66, 68. HPV16 DNA CVX QL PROBE+SIG AMP Negative Negative [facility] Comment:Testing did not dete ct the presence of high-risk HPV type 16. 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
[2024-12-04 09:07] LABS: ~HepC Num1 0.14 S/CO (0.00-0.79); ~Hepatitis C Antibody Nonreactive (Nonreactive)
[2024-12-06 20:39] LABS: TS Negative Control Passed; TS Panel A 0; TS Panel B 0; TS Positive Control Passed; TSpotTB Negative (Negative)
== END 2024-12-03 11:09 | disposition home or self-care (01) ==
LOC: HO.HHCL 11:08
PROVIDERS: PCP Nurse Practitioner Primary Care; Visit Provider Nurse Practitioner Primary Care
DX: Z11.59 Encounter for screening for other viral diseases (principal); Z11.1 Encounter for screening for respiratory tuberculosis; Z13.1 Encounter for screening for diabetes mellitus; E78.2 Mixed hyperlipidemia; I10 Essential (primary) hypertension
CPT/HCPCS: 36415; 80053; 80061; 83036; 86481; 86803

== ENCOUNTER 2024-12-14 12:18 | Outpatient (AMB) | payer OTHER, SELFPAY ==
--- NOTE | 2024-12-14 12:32 | A.OFFVIS_ITS ---
Intake Visit Reasons: follow up Upstream Biomanufacturing Technician Required: Yes Upstream Biomanufacturing Technician Name: #[id number] Accompanied by: Friend Allergies aspirin (Aspirin) Allergy (Mild, Verified 12/14/24 12:43) SWELLING, facial swelling, redness Sulfa (Sulfonamide Antibiotics) (Sulfa (Sulfonamides)) Allergy (Mild, Verified 12/14/24 12:43) SWELLING, facial swelling, redness shrimp Allergy (Verified 12/14/24 12:43) Unknown Medication List - Last Reconciled 12/14/24 by Reyna Griggs CNP acetaminophen 325 mg PO Q6H PRN atorvastatin 40 mg PO BEDTIME chlorthalidone 25 mg PO DAILY cholecalciferol (vitamin D3) (Vitamin D3) 125 mcg PO DAILY clopidogrel 75 mg PO DAILY lisinopril 40 mg PO DAILY meclizine 12.5 mg PO TID PRN pantoprazole 20 mg PO DAILY@0630 verapamil ER 240 mg PO BEDTIME HPI Comments Details: 64-year-old right-handed woman with a history of hypertension and hyperlipidemia who had a stroke around 2021, affecting the right side with some mild right- sided weakness so that she gets around with a wheeled walker. Around 06/2024, she had a change in symptoms that came on suddenly with the entire right side feeling a little bit weaker with a squeezing sensation that goes from the top of the head all the way down the face arm and leg. She feels a bit weaker than she did after previous stroke. No loss of sensitivity. No impairment of her speech. No further change in symptoms since then. She was here with a friend she was now living with. She was doing regular. No change to right-sided weakness. She was walking with walker, no falls. No difficulty with speech or swallowing. No new stroke-like symptoms or worsening symptoms. She did not have MRI done. She was seen at [facility] in 09/2024 for dizziness and was diagnosed with UTI. She had CTA head/neck at that time, results below. She says she lost CPAP supplies about 2 months ago when she was living with her sister. [facility] Medical History (Updated 12/14/24 @ 12:56 by Reyna Griggs CNP) Hyperkeratosis Bilateral hearing loss Dry eyes, bilateral Superficial thrombosis of right lower extremity Gastritis History of endometrial cancer Personal history of stroke with residual effects Other lack of coordination Muscle wasting and atrophy, not elsewhere classified, multiple sites Peripheral vascular disease, unspecified Primary generalized (osteo)arthritis Migraine, unspecified, not intractable, without status migrainosus Cerebrovascular accident (CVA) due to embolism of left middle cerebral artery Morbid obesity with BMI of 50.0-59.9, adult 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 right dominant side Allergic rhinitis TIA (transient ischemic attack) Pulmonary hypertension Ischemic stroke Chronic diastolic (congestive) heart failure GERD (gastroesophageal reflux disease) Anxiety associated with depression Unstable gait 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 TEDDY (obstructive sleep apnea) Moderate persistent asthma without complication Lacunar infarct, acute Mood disorder Mixed hyperlipidemia Essential hypertension UTI (urinary tract infection) CVA (cerebral vascular accident) Family History (Updated 09/08/24 @ 11:32 by Olivia Moss MA) Mother Hypertension Father Hypertension Heart disease Sister Breast cancer Brother Diabetes Heart attack Social History (Updated 09/08/24 @ 10:56 by Anaya Luevano DIRECTOR OF TRANSPORTATION) Household Members: Family Housing: Assisted Living Facility Do you presently have visiting nurse or other home services: No Alcohol intake: never Patient Tobacco Use Status: Never used Tobacco Second Hand Smoke Exposure: No service: No Current occupational status: disabled Review of Systems Const Denies chills, Denies daytime sleepiness, Denies difficulty sleeping, Denies fatigue, Denies fever(s), Denies frequent falls, Denies headache(s), Denies increased appetite, Denies poor appetite, Denies snoring, Denies weakness, Denies weight gain and Denies weight loss Eyes Denies loss of vision ENT Denies vertigo, Denies dizziness, Denies headache(s) and Denies neck pain Card Denies chest pain at rest, Denies chest pain with activity, Denies syncope, Denies leg edema, Denies palpitations, Denies dyspnea and Denies dyspnea on exertion Resp Denies cough, Denies dyspnea, Denies dyspnea on exertion and Denies snoring GI Denies abdominal pain, Denies constipation, Denies heartburn, Denies diarrhea and Denies nausea Denies urinary frequency, Denies urinary incontinence and Denies urinary urgency Musc Denies abnormal gait, Denies back pain, Denies myalgias, Denies arthralgias, Denies neck pain, Denies numbness and Denies tingling Neuro Denies abnormal gait, Denies vertigo, Denies dizziness, Denies syncope, Denies frequent falls, Denies headache(s), Denies lack of coordination, Denies loss of vision, Denies memory loss, Denies numbness, Denies Other visual disturbances, Denies restless legs, Denies seizure-like activity, Denies tingling, Denies paresthesias, Denies tremor(s) and Denies weakness Psych Denies anxiety, Denies depression, Denies auditory hallucinations, Denies memory loss and Denies visual hallucinations Endo Denies fatigue and Denies palpitations Physical Exam Const Other: General Appearance:? normal, in no acute distress. Heart:? S1, S2 normal, no murmurs. Lungs:? clear anteriorly and posteriorly. Musculoskeletal:? normal. Extremities:? no edema. Psych:? alert, oriented, cognitive function intact, cooperative with exam. Neuro Other: Abnormal neurological findings:??Mild pronation drift of the right upper extremity. Mild right upper extremity weakness and right lower extremity weakness graded at 4+ to V minus/5. Reflexes are symmetrical. No sensory deficit. Plantar responses are flexor. she walks with a wheeled walker .? Mental Status:?alert and oriented X 3,?Normal attention, orientation, memory and affect.? Cranial Nerves:?Pupils are equal, round and reactive to light. Fundoscopy shows normal disc bilaterally. External ocular muscles are intact. Visual urbina are full, no ptosis. Face is symmetrical, no facial weakness or droop. Facial sensations are normal. Tongue protrudes in midline. Palate elevates symme trically. Shoulder shrugging is normal..? Motor Examination:? Mild right-sided weakness as described above, left side with Normal muscle tone, bulk and strength,?No atrophy or fasciculations,?No drift of the extended upper extremities,?Deep tendon reflexes are 2,?Plantars are flexor.? Sensory Exam:?Normal light touch, temperature, pinprick, vibration and joint- position sensations?,?Rhomberg sign is absent.? Coordination:?no ataxia,?no titubation. Gait Exam:?Walker Cerebellar Signs:?[id number] is okay. Extrapyramidal System:?No tremor, rigidity with normal facial expressions,?No bradykinesia, no bradyphrenia. Normal arm swing and posture. No propulsion or retropulsion.? Speech:?Normal Results Reviewed Results Reviewed: [address] [address] [address] Scan Report Signed Patient: Alysa Luevano MR#: [id number] : 1960 Acct:[id number] Age/Sex: 63 / F ADM Date: 09/28/24 Loc: .ED Attending Dr: Ordering Physician: Dariela Nichols PA-C Date of Service: 09/28/24 Procedure(s): CT angio head neck Accession Number(s): [id number] cc: Kate Cesar MD; Dariela Nichols PA-C~ Report Number: [id number]: Total DLP = 1417.00 mGy-cm EXAMINATION: CT ANGIOGRAM HEAD AND NECK CLINICAL INFORMATION: Dizziness, rule out stroke. COMPARISON: February 26, 2024. TECHNIQUE: Noncontrast axial imaging of the head was performed. This was followed by test bolus sequences and head and neck intravenous bolus administration 70mL of Omnipaque 350. Helical imaging was performed in the axial plane from the aortic arch to the skull vertex. The data was processed at the process safety engineering technologist's workstation for generation of MIP sequences. Angled MIPs and volume rendered reformatted images were also generated at an offline 3D workstation. Stenoses are assessed in accordance with NASCET criteria unless otherwise indicated. This CT examination was performed using dose optimization techniques as appropriate, variously including the following: *Automated exposure control *Adjustment of mA and/or kV according to patient size (this includes techniques or standardized protocols for targeted exams where dose is matched to indication/reason for exam; i.e. extremities or head) *Use of iterative reconstruction technique DLP: 1417 mGy*cm FINDINGS: NONCONTRAST HEAD CT: There is no evidence of intracranial hemorrhage or extra-axial fluid collection. There is no mass effect, or edema. No CT evidence of acute territorial infarct. Ventricles, sulci, and cisterns are normal in size and configuration for patient age. No hydrocephalus. No midline shift. No significant white matter abnormalities. Globes and orbital contents image normally. No extracranial soft tissue abnormalities. The paranasal sinuses, mastoid air cells, and tympanic cavities are normally aerated. No suspicious bony abnormalities. NECK CTA: -AORTIC ARCH: Normal in caliber. Mild atheromatous calcification. Three-vessel branching pattern. -GREAT VESSEL ORIGINS: Widely patent. No hemodynamically significant stenosis. -RIGHT COMMON CAROTID ARTERY: Origin is obscured by beam hardening artifact. Normal in course and caliber to the level of the bifurcation. -CERVICAL RIGHT INTERNAL CAROTID ARTERY: Normal opacification without focal stenosis or occlusion. -LEFT COMMON CAROTID ARTERY: Normal in course and caliber to the level of the bifurcation. -CERVICAL LEFT INTERNAL CAROTID ARTERY: Mild calcific atherosclerotic disease of the carotid bulb. There is no hemodynamically significant stenosis. -CERVICAL RIGHT VERTEBRAL ARTERY: Codominant. Normal in course and caliber into the skull base. -CERVICAL LEFT VERTEBRAL ARTERY: Codominant. Normal in course and caliber into the skull base. OTHER, SOFT TISSUES: -No lymphadenopathy or mass. No abnormal fluid collection or soft tissue swelling. -Normal thyroid. -Imaged superior mediastinal structures normal. -Imaged lung apices clear. CTA OF THE BRAIN: -INTRACRANIAL INTERNAL CAROTID ARTERIES: No focal stenosis or occlusion. Mild multifocal atherosclerotic calcifications are present. -RIGHT ANTERIOR CEREBRAL ARTERY: Normal A1 segment.. Normal arborization of the distal segments. -LEFT ANTERIOR CEREBRAL ARTERY: Normal A1 segment.. Normal arborization of the distal segments. -RIGHT MIDDLE CEREBRAL ARTERY: Normal M1 segment of the MCA without focal stenosis or occlusion. Normal arborization of the distal segments. -LEFT MIDDLE CEREBRAL ARTERY: Normal M1 segment of the MCA without focal stenosis or occlusion. Normal arborization of the distal segments. -RIGHT VERTEBRAL ARTERY V4: Normal in course and caliber. Normal PICA branch. -LEFT VERTEBRAL ARTERY V4: Normal in course and caliber. Normal PICA branch. -BASILAR ARTERY: Normal without focal stenosis or occlusion. Normal appearance of the proximal superior cerebellar arteries. Normal basilar tip. -RIGHT POSTERIOR CEREBRAL ARTERY: Normal P1 segment. Normal opacification of the distal SCREW EYE ASSEMBLER segments. -LEFT POSTERIOR CEREBRAL ARTERY: The P1 segment is diminutive. There is opacification of the distal SCREW EYE ASSEMBLER segments. -POSTERIOR COMMUNICATING ARTERIES: Present and small on the right greater than left. CT/CT angio head neck IMPRESSION: NONCONTRAST HEAD CT: 1. No intracranial hemorrhage or mass effect. No CT evidence of acute territorial infarct. CTA NECK: No hemodynamically significant stenosis. CTA HEAD: No hemodynamically significant stenosis. Communication sent to GRETCHEN Winter at 14:06 ET Electronically signed by: Chang Del Cid MD 09/28/2024 02:06 PM EDT RP Assessment & Plan Assessment & Plan (1) Right sided weakness: Code(s): R53.1 - Weakness Category: Medical Plan: CTA head/neck results from [facility] reviewed, no acute infarct or significant stenosis. Stay physically active, continue to use walker. (2) Personal history of stroke with residual effects: Code(s): I69.30 - Unspecified sequelae of cerebral infarction Category: Medical Plan: MRI brain ordered at previous appointment was not completed. Coding Level of Care Code Est Pt Level 4 (31255) Diagnoses Right sided weakness R53.1 Personal history of stroke with residual effects I69.30
--- OUTSIDE RECORDS SUMMARY | 2024-12-14 14:41 | XMS_ITS | Encounter Summary ---
Author Organization [employer] Address [address] [facility] [address] [address] Care Team Providers Care Immersion Metalcleaner Name Role Phone Kate Cesar MD Primary Care Provider + Reason for Visit * Reason Comments Care Coordination CHW outreach for SDO H housing search-referral completed Encounter Details Date Type Department Care Team (Latest Contact Info) Description 12/11/2024 Patient Outreach [facility] MEDICINE [address] [place] [address] Kate Cesar MD [address] [place] [address] Care Coordination (CHW outreach for SDOH housing search-referral completed ) Social History Tobacco Use Types Packs/Day Years [...] with others, in a hotel, in a penitentiary, living outside on the street, on a [...] PM EDT documented as of this encounter Progress Notes * Jeferson Espinoza - 12/11/2024 10:52 AM EDT CHW Jeferson Espinoza, placed outbound call to patient for assistance with SDOH as a referral was received by the provider. Patient's name and were confirmed. Patient screened positive for the following SDOH housing insecurities. Patient states is staying with her friend but is searching for her own apartment. CHW referral patient to the list of application mail out to her address on file. Patient verbalizes understanding, and able to agree with plan to follow up herself. Patient educated on extended clinic hours on Mondays through Wednesdays, and Walk-In Urgent Care Located in [facility] of [facility]. Patient provided with after-hours line for [facility], , which offer night time triage service and option to transfer to refrigeration unit repairer provider if needed. documented in this encounter Plan of Treatment Upcoming Encounters Date Type Department Care Team (Late st Contact Info) Description 02/12/2025 11:30 AM EST Office Visit [facility] MEDICINE [address] [place] [address] Kate Cesar MD [address] [place] [address] 03/15/2025 10:30 AM EST Office Visit [facility] OPTOMETRY [address] [place] [address] TarkaVicki, OD [address] [place] [address] documented as of this encounter Visit Diagnoses Not on filedocumented in this encounter Additional Health Concerns Assessment Noted Time PHQ-9 Depression Total Score: 20 11/27/ 025 3:34 PM EDT documented as of this encounter Care Teams Immersion Metalcleaner Relationship Specialty Start Date End Date Kate Cesar MD [address] [place] [address] PCP - General Internal Medicine 03/24/24 documented as of this encounter
--- OUTSIDE RECORDS SUMMARY | 2024-12-14 14:41 | XMS_ITS | Encounter Summary ---
Author Organization [employer] Address [address] [facility] 7[place] [address] Care Team Providers Care Technical Healthcare Consultant Name Role Phone Massiel Nelson [facility] Primary Care Provider Anna Garcia MD Primary Care Provider [phone] Kate Cesar MD Primary Care Provider + Encounter Details Date Type Department Care Team (Late Contact Info) Description 04/02/2022 Orders Only [facility] PRIMARY/PEDS [address] [place] [address], [address] [place] [address] Roxanne Howard, CAMPUS WELLNESS COORDINATOR [address] [facility] [address] [place] [address] Social History Tobacco Use Types Packs/Day Years [...] 02/12/2025 11:30 AM EST Office Visit [facility] MEDICINE [address] [place] [address] Kate Cesar MD [address] [place] [address] 03/15/2025 10:30 AM EST Office Visit [facility] OPTOMETRY [address] [place] [address] Rogerjonny Vicki, OD [address] [place] [address] documented as of this encounter Visit Diagnoses Not on filedocumented in this encounter Care Teams Technical Healthcare Consultant Relationship Specialty Start Date End Date Mass[facility] PCP - General 03/24/22 06/09/23 Anna Parnell MD [address] [place] [address] PCP - General Internal Medicine 06/10/23 10/31/23 Kate Cesar MD [address] [place] [address] PCP - General Internal Medicine 03/24/24 documented as of this encounter
--- OUTSIDE RECORDS SUMMARY | 2024-12-14 14:41 | XMS_ITS | Encounter Summary ---
Author Organization [employer] Address [address] [facility] 7[place] [address] Care Team Providers Care Hydro Generation Manager Name Role Phone Kate Cesar MD Primary Care Provider + Encounter Details Date Type Department Care Team (Late st Contact Info) Description 09/23/2024 Telephone [facility] PRIMARY/PEDS [address] [facility], [address] [place] [address] Kate Cesar MD [address] [place] [address] Social History Tobacco Use Types Packs/Day Years [...] Description 02/12/2025 11:30 AM EST Office Visit [facility] MEDICINE [address] [place] [address] Kate Cesar MD [address] [place] [address] 03/15/2025 10:30 AM EST Office Visit [facility] OPTOMETRY [address] [place] [address] Vicki Zapata, OD [address] [place] [address] documented as of this encounter Visit Diagnoses Not on filedocumented in this encounter Additional Health Concerns Assessment Noted Time PHQ-9 Depression Total Score: 17 025 1:02 PM EST documented as of this encounter Care Teams Hydro Generation Manager Relationship Specialty Start Date End Date Kate Cesar MD [address] [place] [address] PCP - General Internal Medicine 03/24/24 documented as of this encounter
--- OUTSIDE RECORDS SUMMARY | 2024-12-14 14:41 | XMS_ITS | Encounter Summary ---
Author Organization [employer] Address [address] [facility] 7[place] [address] Care Team Providers Care Capacitor Inspector Name Role Phone Anna Parnell MD Primary Care Provider [phone] Kate Cesar MD Primary Care Provider + Encounter Details Date Type Department Care Team (Late st Contact Info) Description 07/24/2023 Abstract [facility] PRIMARY/PEDS [address] [place] [address], [address] [address] Anna Parnell MD [address] [place] [address] Social History Tobacco Use Types Packs/Day Years [...] [facility] MEDICINE [address] [place] [address] Kate Cesar MD [address] [place] [address] 03/15/2025 10:30 AM EST Office Visit [facility] OPTOMETRY [address] [place] [address] Vicki Zapata, OD [address] [place] [address] documented as of this encounter Visit Diagnoses Not on filedocumented in this encounter Additional Health Concerns Assessment Noted Time PHQ-9 Depression Total Score: 6 09/11/19 23 12:43 PM EDT documented as of this encounter Care Teams Capacitor Inspector Relationship Specialty Start Date End Date Anna Parnell MD [address] [place] [address] PCP - General Internal Medicine 06/10/23 10/31/23 Kate Cesar MD [address] [place] [address] PCP - General Internal Medicine 03/24/24 documented as of this encounter
--- OUTSIDE RECORDS SUMMARY | 2024-12-14 14:41 | XMS_ITS | Encounter Summary ---
Author Organization [employer] Address [address] [facility] 7[place] [address] Care Team Providers Care Chief Quality Officer Name Role Phone Massiel Nelson [facility] Primary Care Provider Anna Garcia MD Primary Care Provider [phone] Kate Cesar MD Primary Care Provider + Encounter Details Date Type Department Care Team (Late Contact Info) Description 10/18/2022 Orders Only [facility] PRIMARY/PEDS [address] [place] [address], [address] [place] [address] Massiel Nelson [facility] Social History Tobacco Use Types [...] Upcoming Encounters Date Type Department Care Team ([facility] Contact Info) Description 02/12/2025 11:30 AM EST Office Visit [facility] MEDICINE [address] [place] [address] Kate Cesar MD [address] [place] [address] 03/15/2025 10:30 AM EST Office Visit [facility] OPTOMETRY [address] [place], [place] [phone] Jdoi Vicki, OD [address] [place] [address] documented as of this encounter Visit Diagnoses Not on filedocumented in this encounter Additional Health Concerns Assessment Noted Time PHQ-9 Depression Total Score: 6 09/11/19 23 12:43 PM EDT documented as of this encounter Care Teams Chief Quality Officer Relationship Specialty Start Date End Date Massiel Nelson [facility] PCP - General 03/24/22 06/09/23 Anna Parnell MD [address] [place] [address] PCP - General Internal Medicine 06/10/23 10/31/23 Kate Cesar MD [address] [place] [address] PCP - General Internal Medicine 03/24/24 documented as of this encounter
--- OUTSIDE RECORDS SUMMARY | 2024-12-14 14:41 | XMS_ITS | Encounter Summary ---
Author Organization [employer] Address [address] [facility] 7[place] [address] Care Team Providers Care Coal Wheeler Name Role Phone Kate Cesar MD Primary Care Provider + Reason for Visit * Reason Onset Date Comments FYI / ORDERS 09/23/2024 Encounter Details Date Type Department Care Team ([facility] st Contact Info) Description 09/23/2024 Telephone [facility] PRIMARY/PEDS [address] [place] [address], [address] [address] Anna Parnell MD [address] [place] [address] FYI / ORDERS Social History Tobacco Use [...] with others, in a hotel, in a residential, living outside on the street, on a [...] no longer under our care, seen at [facility], call placed to Tamar and made aware, sending to med records to melissa as transferred. * Telephone Encounter - Edel Beck - 09/23/2024 3:00 PM EDT Tamar from [facility] calling to let Dr. Parnell know she will be resending orders to Provider soon Orders include Plan of care and Frequency evaluation Tamar's best call back #: [phone] documented in this encounter Plan of Treatment Upcoming Encounters Date Type Department Care Team (Late st Contact Info) Description 02/12/2025 11:30 AM EST Office Visit [facility] MEDICINE [address] [place] [address] Kate Cesar MD [address] [place] [address] 03/15/2025 10:30 AM EST Office Visit [facility] OPTOMETRY [address] [place], [place] [phone] Vicki Zapata, OD [address] [place] [address] documented as of this encounter Visit Diagnoses Not on filedocumented in this encounter Additional Health Concerns Assessment Noted Time PHQ-9 Depression Total Score: 17 025 1:02 PM EST documented as of this encounter Care Teams Coal Wheeler Relationship Specialty Start Date End Date Kate Cesar MD [address] [place] [address] PCP - General Internal Medicine 03/24/24 documented as of this encounter
--- OUTSIDE RECORDS SUMMARY | 2024-12-14 14:42 | XMS_ITS | Clinical Summary ---
Author Organization [employer] Address [address] [facility] [address], [place] [address] Care Team Providers Care Supervisor Fishing Name Role Phone Kate Cesar MD Primary [...] cerebral infarction affecting right dominant side (CMS/HCC) (HCC) Take 1 tablet (75 mg) by mouth [...] cerebral infarction affecting right dominant side (CMS/HCC) (HCC) Take 1 tablet (20 mg) by mouth [...] 90 tablet 2 09/25/19 25 2024 Discontinued nitrofurantoin, macrocrystal-mono hydrate, (Macrobid) 100 MG capsuleIndication s:Acute cystitis without hematuria Take 1 capsule (100 mg) by mouth 2 times daily for 5 days. 10 capsule 12/05/19 25 2024 Active Problems Problem Noted Date Diagnosed Date Housing insecurity 12/11/2024 Cerebrovascular accident (CVA) ([facility]) 025 Assessment & Plan (11/24/2024 10:08 AM EDT): Hx of , now with housing challenges, needs increase in GASTROENTEROLOGY MANAGER support and hours Impaired balance as late [...] diet and exercise done today referral to hurl shaker done Assessment & Plan (03/24/2024 2:39 PM [...] endometrial cancer 03/18/2024 Gastritis 03/18/2024 Severe obesity (CMS/HCC) 03/18/2024 Hospital discharge follow-up 07/19/2023 Personal history [...] Morbid obesity with BMI of 50.0-59.9, adult ([facility]) 07/09/2023 Cerebrovascular accident (CV A) due to embolism of left middle cerebral artery 07/09/2023 Allergic rhinitis, unspecified 09/19/2022 Hemiplegia and hemiparesis f ollowing cerebral infarction affecting right dominant side ([facility]) 09/19/2022 Assessment & Plan (07/29/2024 10:59 AM EDT): Advised not to miss her appointment with physical therapist Assessment & Plan (05/22/2024 1:40 PM EDT): S/P CVA, ambulates with cane or walker. Needs evaluation from PT for fall prevention and home DME. Continue Plavix and Atorvastatin. FU Lipids in 6 months. Will refer to Neurology. Patient or GASTROENTEROLOGY MANAGER will call [facility] to arrange for transportation for these appointments Assessment & Plan (03/24/2024 2:58 PM EST): S/P post CVA, has significant sensorial symptoms. Continue ambulation with the walker, may need DMEs to prevent falls at home, refer to PT, may need AFO to improve gait stability. Pt is allergic to Aspirin, continue Plavix life long. LDL is goal at 70, check lipids. Ischemic stroke ([facility]) 04/16/2022 Pulmonary hypertension, unspecified ([facility]) TIA (transient ischemic attack) 04/16/2022 Overview (07/19/2023): 07/09/23 acute R sided weakness, admitted to hospital Gastroesophageal reflux disease 02/16/2022 Chronic diastolic (congestive) heart failure 11/2021 Essential hypertension 02/09/2022 Assessment & Plan (03/24/2024 2:37 PM EST): Uncontrolled. Pt will check BP at home and FU with me in 4 weeks. Order labs and continue same medications. Lacunar infarct, acute ([facility]) 02/09/2022 Moderate persistent asthma without complication 02/09/2022 [...] adjust medication PRN, LDL goal is 70. Unstable gait 02/09/2022 Assessment & Plan (03/24/2024 2:38 PM EST): Secondary to CVA, needs ambulation with walker. See above for PT referral. Severe depression (CMS/HCC) 02/09/2022 Assessment & Plan (12/11/2024 10:12 AM EDT): >>ASSESSMENT AND PLAN FOR RECURRENT MAJOR DEPRESSIVE DISORDER, IN PARTIAL REMISSION (CMS/HCC) WRITTEN ON 03/24/2024 2:39 PM BY SHERMAN VALENTINO See above at anxiety. Anxiety associated with depression 02/09/2022 Assessment & [...] lsewhere classified 09/19/2022 01/08/2023 Dizziness and giddiness 09/19/2022 1003/2022 Need for assistance with personal care 09/19/2022 01/08/2023 Other lack of coordination 09/19/2022 1 Other malaise 09/19/2022 01/08/2023 Unspecified sequelae of cerebral infarction 09/19/2022 01/08/2023 Unsteadiness on feet 09/19/2022 023 Vitamin D deficiency, unspecified 09/19/2022 01/08/2023 Inadequate housing 05/28/2022 Obstructive sleep apnea syndrome 02/16/2022 01/08/2023 Arthritis 02/09/2022 04/27/2022 Chronic GERD 02/09/2022 02/16/2022 Constipation by delayed colonic transit 02/09/2022 01/08/2023 Dependence on other enabling machines and devices 02/09/2022 02/16/2022 Morbid obesity (CMS/HCC) 02/09/2022 Other chronic pain 02/09/2022 Primary osteoarthritis of both knees 02/09/2022 01/08/2023 Sleep dysfunction with arousal disturbance 02/09/2022 02/16/2022 Encounters * This document contains information received from the source organization and may not represent a complete record from that organization. Date Type Department Care Team Description 12/11/2024 Patient Outreach [facility] [address] [place] [phone] Kate Cesar MD Care Coordination ([facility] outreach for SDOH housing search-referral completed ) 12/04/2024 Orders Only [facility] [place] [address] Liz Capone ANP Acute cystitis without hematuria (Primary Dx) 12/03/2024 Results Follow-Up [facility] [place] [address] Liz Capone ANP Lipid Panel, Standard, Hemoglobin A1c, Comprehensive Metabolic Panel, Additional followed-up results: 3 12/03/2024 Telephone [facility] [place] [address] Kate Cesar MD telephone call; Durable Medical Equipment (DME: Multiple Items) 12/03/[address] [address] Kate Cesar MD telephone call 12/01/[address] [address] Kate Cesar MD appt change 11/27/2024 2:30 PM EDT Office Visit [address] [address] Liz Capone ANP Malodorous urine (Primary Dx); [...] Screening for tuberculosis 11/27/2024 Travel 11/26/[address] [address] Liz Capone ANP chart prep 10/28/2024 9:45 AM EDT Office Visit [address] [address] Evette Stiles NP Cerebrovascular accident (CVA), unspecified mechanism (CMS/HCC) (Primary Dx); 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 10/28/[address] [address] Kate Cesar MD Durable Medical Equipment 10/28/2024 Travel 10/27/[address] [address] Evette Stiles NP Chart Prep 10/24/[address] [address] Kate Cesar MD 10/16/2024 Patient Outreach [address] [place] [address] Kate Cesar MD Transition Of Care (Tcm) (HDF - Scheduled ) 09/30/[address] [address] Kate Cesar MD FYI 09/29/2024 Orders Only GENERIC EXTERNAL DATA DEPARTMENT Provider, Generic External Data 09/28/2024 Orders Only GENERIC EXTERNAL DATA DEPARTMENT Provider, Generic External Data 09/24/[address] [address] Kate Cesar MD Referral 09/24/2024 Refill [facility] [address] [place] [phone] Karla Evans MD Mixed hyperlipidemia 09/23/2024 Telephone [facility] [address] [place] [address], [place] [address] Anna Parnell MD FYI / ORDERS 09/23/2024 Telephone [facility] [address] [place] [address], [address] [phone] Kate Cesar MD 09/14/[address] [phone] Kate Cesar MD Appointment Request from Last 3 Months Immunizations Immunization Administration [...] with others, in a hotel, in a fpc, living outside on the street, on a [...] the past 12 months, has t he iogyn, gas, oil or water [employer] threatened to shut off services in your [...] Description 02/12/2025 11:30 AM EST Office Visit [facility] [address] [place] [address] Kate Cesar MD [address] [place] [address] 03/15/2025 10:30 AM EST Office Visit [facility] [address] [place] [address] Vicki Zapata, BRANNON [address] [place] [address] Health Maintenance Due Date Last Done Comments CT Colonography 1960 Colonoscopy 1960 Colorectal Cancer Screening 1960 FIT DNA/Cologuard 1960 FIT 1960 FOBT 1960 Sigmoidoscopy 1960 DTaP/Tdap/Td Vaccines (1 - Tdap) 1977 Zoster Vaccines (1 of 2) 2008 RSV Patients and Patients Aged 60 years or older (1 - Risk 60-74 years 1-dose series) 2018 Mammogram 09/16/2023 09/15/2021, 07/0 10/2021, 09/15/2021, Additional history exists COVID-19 Vaccine ( - 2025-26 season) 2024 09/08/2021, 09/08/2021 Influenza Vaccine (#1) 2024 , 01/10/2022, 12/30/2020, Additional history exists SDOH Screening 03/12/2025 03/12/2024 Depression Monitoring 05/27/2025 11/27/2024, 025 Alcohol/Substance Use Screening 10/28/2025 10/28/2024 Tobacco Screening 11/27/2025 11/27/2024 Lipid Panel 12/03/2029 12/03/2024, 03/11, 06/19/2021 Cervical Cancer Screening Discontinued HPV/Cotest Discontinued 11/04/2018 Pap Smear Discontinued 11/04/2018 Pneumococcal Vaccine: 50+ Years Completed 10/07/2024 Hepatitis C Screening Completed 12/03/2024 HIB Vaccines Aged Out No longer eligi [...] Procedure Name Priority Date/Time Associated Diagnosis Comments T-SPOT(R).TB Routine 12/03/2024 11:29 AM EDT Screening for tuberculosis HEPATITIS C AB W/REFL TO HCV RNA, QN, PCR Routine 12/03/2024 11:29 AM EDT Need for hepatitis C screening test COMPREHENSIVE METABOLIC PANEL Routine 12/03/2024 11:29 AM [...] URINE, ROUTINE Routine 09/28/2024 12:00 AM EDT MAMMOGRAM GENERIC Routine 09/15/2021 2:2 6 PM EDT HPV DNA PROBE, AMPLIFIED Routine 11/04/2018 10:13 PM EDT LIQUID-BASED PAP TEST Routine 11/04/2018 10:13 PM EDT from Last 3 Months or Most Recently Relevant to Health Maintenance Results * T-SPOT??.TB (12/03/2024 11:29 AM EDT) T Spot TB Negative Negative [facility] Comment:A negative test resu lt does not exclude the possibilityof exposure to or infection with Mycobacteriumtuberculosis (M. tuberculosis). Patients with recentexposure to TB infected individuals exhibiting anegative T-SPOT.TB result should be considered forretesting within 6 weeks or if other relevant clinicalsymptoms indicate. Results from T-SPOT.TB testing mustbe used in conjunction with each individual'sepidemiological history, current medical status,and results of other diagnostic evaluations.The T-SPOT.TB test is qualitative and results arereported as positive, borderline, or negative, giventhat the test controls perform as expected. In linewith the Centers for Disease Control and Prevention's2010 recommendation to report quantitative measurementsalongside the qualitative result, the laboratoryprovides spot counts for informational purposes only.The T-SPOT.TB test should not be interpreted as aquantitative test. TS PANEL A 0 [facility] TS PANEL B 0 [facility] Negative Control Passed [facility] Positive Control Passed [facility] Comment:For additional infor nilda, please refer tohttp://education.[employer]/faq/QTO331(This link is being provided for informational/educational purposes only.)THIS TEST WAS PERFORMED AT:[employer]/[facility] [place] [id number] W. MASON,MD,PHD 12/03/2024 11:2 9 AM EDT 12/03/2024 1:06 PM EDT [facility] LAB BLOOD ORDERABLES Final Resul t [facility] [address], [place] [phone] * Hepatitis C Antibody with Reflex to HCV, RNA, Quantitative, Real-Time PCR (12/03/2024 11:29 AM EDT) Hepatitis C Antibody Nonreactive Nonreactive [facility] Comment:Antibodies to HCV no t detected; does not exclude early acuteHCV infection. Blood Venous blood specimen / Unknown 12/03/2024 11:29 AM EDT 12/03/2024 1:06 PM EDT Liz Capone ANP LAB BLOOD ORDERABLES Final Resul t Performing Organization Address [facility] de Phone Number [facility] [address] [place] [phone] * Hemoglobin A1c (12/03/2024 11:29 AM EDT) Hemoglobin A1c 5.5 <6.0 % [facility] Comment:Hemoglobin A1C Refer ence Range Adults: 4.8 - 6.0 % Non diabetic: < 6.0 % Goal: < 7.0 %Additional Action Suggested: > 8.0 %Note: Hemoglobin A1c results are invalid for patients with abnormal amounts of HbF. Blood transfusions may impact the HbA1c concentration in the patient sample. Estimated Average Glucose 111 mg/dL [facility] Comment:eAG = Estimated ave rage glucose which is %A1C expressed asaverage glucose, using the formula of the E3I-UtftwxgLwodavs Glucose study (ADAG), Diabetes Care, Vol.31,#8,Oct. 2007 Blood Venous blood specimen / Unknown 12/03/2024 11:29 AM EDT 12/03/2024 1:06 PM EDT us Liz Capone ANP LAB BLOOD ORDERABLES Final Resul t Performing Organization Address [facility] Co de Phone Number [facility] [address] [place] [phone] * (ABNORMAL) Lipid Panel, Standard (12/03/2024 11:29 AM EDT) Triglycerides 118 <150 mg/dL [facility] Comment:Slight Lipemia.Nigel able Triglyceride: less than 150 mg/dLBorderline High Triglyceride 150-199 mg/dLHigh Triglyceride: 200-499 mg/dLVery High Triglyceride: greater than or equal to 5OO mg/dL Cholesterol 175 <200 mg/dL [facility] Comment:Desirable Cholestero l: less than 200 mg/dLBorderline High Cholesterol: 200-239 mg/dLHigh Cholesterol: greater than 239 mg/dL LDL Cholesterol Calculated 111(H) <100 mg/dL [facility] Comment:Desirable LDL: less than 100 mg/dLNear Optimal/Above Optimal LDL: 110- 129 mg/dLBorderline High LDL: 130-159 mg/dLHigh LDL: 160-189 mg/dLVery High LDL: greater than or equal to 190 mg/dL HDL Cholesterol 41 >40 mg/dL [facility] Comment:Desirable HDL: great er than 40 mg/dL Note: This HDL assay may give artificially low results in patients with liver disease. Blood Venous blood specimen / Unknown 12/03/2024 11:29 AM EDT 12/03/2024 1:06 PM EDT Liz Capone [facility] LAB BLOOD ORDERABLES Final Resul t [facility] [address] [place] [phone] * (ABNORMAL) Comprehensive Metabolic Panel (12/03/2024 11:29 AM EDT) Only the most recent of2 resultswithin the time period is included. Sodium 138 135 - 145 mmol/L [facility] Potassium 4.4 3.3 - 5.1 mmol/L [facility] Chloride 103 96 - 108 mmol/L [facility] Carbon Dioxide 26 22 - 29 mmol/L [facility] Anion Gap 13 12 - 20 [facility] Urea Nitrogen (BUN) 39(H) 9 - 16 mg/dL [facility] Creatinine, Serum 1.18 0.5 - 1.4 mg/dL [facility] Estimated Glomerular Filt Rate 46 [facility] Comment:Chronic Kidney Disea se: Estimated GFR < 60 mL/min/1.91g8Rymmds Kidney Disease: Estimated GFR < 15 mL/min/1.73m2 Glucose 112 60 - 115 mg/dL [facility] Calcium 9.9 8.4 - 10.2 mg/dL [facility] Bilirubin, Total 0.3 0.0 - 1.0 mg/dL [facility] Aspartate Amino Transferase 25 5 - 31 U/L [facility] Alanine Aminotransferase 9 0 - 31 U/L [facility] Total Protein 8.1(H) 6.5 - 8.0 g/dL [facility] Albumin Level 4.2 3.5 - 5.0 g/dL [facility] Alkaline Phosphatase 67 39 - 117 U/L [facility] Blood Venous blood specimen / Unknown 12/03/2024 11:29 AM EDT 12/03/2024 1:06 PM EDT Liz Capone [facility] LAB BLOOD ORDERABLES Final Resul t Performing Organization Address [facility] Co de Phone Number [facility] [address] [place] [phone] * Albumin, Random Urine W/Creatinine (12/01/2024 4:25 PM EDT) Creatinine, Urine 21.94 mg/dL [facility] Microalbumin Urine <5.0 mg/L [facility] Microalbum Creatinine Ratio Ur TNP <30 ug/mg cr [facility] Comment:Unable to calculate albumin/creatinine ratio due to lowmicroalbumin or creatinine result. Urine (Urine, Random) 12/01/2024 4:25 PM EDT 12/01/2024 6:39 PM EDT Liz Capone [facility] URINE ORDERABLES Final Resul t Performing Organization Address [facility] Co de Phone Number [facility] [address] [place] [phone] * Culture, Urine, Routine (12/01/2024 4:25 PM EDT) Only the most recent of2 resultswithin the time period is included. Urine Urine specimen obtained by clean catch procedure / Unknown 12/01/2024 4:25 PM EDT 12/01/2024 6:39 PM EDT Comment:UACC Narrative [facility] - 12/04/2024 8:04 AM EDT Escherichia coli Quant > 100,000 cfu/mL Escherichia coli: Ampicillin >=32(R) Escherichia coli: Cefazolin (Urine) 4(S) Escherichia coli: Cefepime <=0.12(S) Escherichia coli: Ceftriaxone <=0.25(S) Escherichia coli: Ciprofloxacin <=0.06(S) Escherichia coli: Gentamicin <=1(S) Escherichia coli: Nitrofurantoin <=16(S) Escherichia coli: Trimethoprim/Sulfamethoxazole <=20(S) Specimen Source: Urine clean catch [facility] LAB MICROBIOLOGY - GENERAL ORDER REMINGTON Final Result [facility] [address] [place] [phone] * Referral to Ophthalmology (11/03/2024) Vicki Zapata OD OUTPATIENT REFERRAL ORDERABLES Final Result * SARS-CoV-2 RNA, Influenza A/B, and RSV RNA, Ql NAAT (09/29/2024 9:01 AM EDT) Influenza A PCR NEGATIVE Negative [facility] Influenza B PCR NEGATIVE Negative [facility] Resp Syncy Virus RNA Qual PCR NEGATIVE Negative [facility] SARS COV2 PCR NEGATIVE Negative [facility] Comment:All test results mus t [...] use by authorized laboratories.Testing performed on the [employer] GeneXpert utilizingreal-time RT-PCR.All SARS CoV2 and positive influenza A/B results arereported to [facility]. 09/29/2024 9:01 AM EDT 09/29/2024 9:04 AM EDT us Generic External Data Provider LAB MICROBIOLOGY - GENERAL ORDERABLES Final Result Performing Organization Address [facility]/ZIP Co de Phone Number [facility] [address] [place] [phone] * (ABNORMAL) Urinalysis, Complete, with Reflex to Culture (09/28/2024 1:44 PM EDT) Color Urine Yellow [facility] Appearance Urine Clear [facility] PH 5.5 5.0 - 9.0 [facility] Glucose Urine UA Negative Negative mg/dL [facility] Urine Blood Negative Negative [facility] Specific Vona - Urine 1.015 1.005 - 1.025 [facility] Urine Protein Negative Neg-Trace mg/dL [facility] Urine Ketones Negative Negative mg/dL [facility] Nitrite Urine Positive(A) Negative [facility] Leukocyte Esterase Urine Moderate (2+)(A) Negative [facility] RBC Urine 0-2 0 - 2 /HPF [facility] Urine WBC 11-20(A) 0 - 5 /HPF [facility] Urine Squamous Epithelial Cell 6-10 0 - 2 /HPF [facility] Urine Bacteria 4+ None Seen [facility] Hyaline Casts, Urine 0-2 0 - 2 /LPF [facility] 09/28/2024 1:44 PM EDT 09/28/2024 1:47 PM EDT Narrative [facility] - 09/28/2024 1:54 PM EDT Urine, Clean Catch us Generic External Data Provider LAB URINE ORDERAB LES Final Result Performing Organization Address [facility] Co de Phone Number [facility] [address] [place] [phone] * CTA Head Neck w/ and w/o Contrast (09/28/2024 1:08 PM EDT) Anatomical Region Laterality Modality Head, Neck Computed Tomogra phy 09/28/2024 1:08 PM EDT Narrative 09/28/2024 2:09 PM EDT [address] [address] [address] Scan Report Signed Patient: Alysa Luevano MR#: [id number] 79 : 1960 Acct:[id number] Age/Sex: 63 / F ADM Date: 09/28/24 Loc: HO.ED Attending Dr: Ordering Physician: Dariela Nichols PA-C Date of Service: 09/28/24 Procedure(s): CT angio head neck Accession Number(s): [id number] cc: Kate Cesar MD; Dariela Nichols PA-C Report Number: [id number]: Total DLP = 1417.00 mGy-cm EXAMINATION: CT [...] vertex. The data was processed at the clinical laboratory technologist's workstation for generation of MIP sequences. [...] P1 segment. Normal opacification of the distal GASTROENTEROLOGY MANAGER segments. -LEFT POSTERIOR CEREBRAL ARTERY: The P1 segment is diminutive. There is opacification of the distal GASTROENTEROLOGY MANAGER segments. -POSTERIOR COMMUNICATING ARTERIES: Present and small [...] 09/28/24 1406 DD/ 1308 TD/TT: 09/28/24 1340 Manager Salt: Procedure Note Donotuseinterpreter, Image - 09/28/[address] [place] [address] [address] Scan Report Signed Patient: Charles Luevano#: [id number] [birth year] : 9Acct:[id number] Age/Sex: 63 / FADM Date: 09/28/24 Loc: .ED Attending Dr: Ordering Physician: Dariela Nichols PA-C Date of Service: 09/28/24 Procedure(s): CT angio head neck Accession Number(s): [id number] cc: Kate Cesar MD; Dariela Nichols PA-C Report Number: [id number]: Total DLP = 1417.00 mGy-cm EXAMINATION: CT [...] vertex. The data was processed at the clinical laboratory technologist's workstation for generation of MIP sequences. [...] P1 segment. Normal opacification of the distal GASTROENTEROLOGY MANAGER segments. -LEFT POSTERIOR CEREBRAL ARTERY: The P1 segment is diminutive. There is opacification of the distal GASTROENTEROLOGY MANAGER segments. -POSTERIOR COMMUNICATING ARTERIES: Present and small [...] 09/28/24 1406 DD/ 1308 TD/TT: 09/28/24 1340 Manager Salt: [facility] External Provider IMG CT PROCEDURES Final Result * (ABNORMAL) CBC auto differential (09/28/2024 12:35 PM EDT) White Blood Count 8.2 4.8 - 10.8 X10*3/uL [facility] Red Blood Count 3.99(L) 4.20 - 5.50 X10*6/uL [facility] Hemoglobin 11.8(L) 12.0 - 16.0 g/dl [facility] Hematocrit 36.2(L) 37.0 - 47.0 % [facility] Mean Corpuscular Volume 90.7 80.0 - 98.0 fL [facility] Mean Corpuscular Hemoglobin 29.6 27.0 - 33.0 pg [facility] Mean Corpuscular HGB Conc 32.6 31.0 - 35.0 g/dl [facility] Red Cell Distribution Width 12.6 11.0 - 16.0 % [facility] Platelet Count 354 160 - 400 X10*3/uL [facility] Mean Platelet Volume 9.8 9.4 - 12.3 fL [facility] Neutrophils Percent Auto 68.2 45 - 73 % [facility] Imm Gran Pct Auto 0.6(H) 0.0 - 0.4 % [facility] Lymphocytes Percent Auto 23.6 20 - 40 % [facility] Monocytes Percent Auto 6.1 2 - 11 % [facility] Eosinophils Percent Auto 1.0 0 - 4 % [facility] Basophils Percent Auto 0.5 0 - 2 % [facility] NRBC Pct Auto 0.0 0.0 - 0.2 /100WBC [facility] Neutrophils Absolute Auto 5.6 2.0 - 8.3 x10*3/uL [facility] Imm Gran Abs Auto 0.05(H) 0.00 - 0.03 X10*3/uL [facility] Lymphocytes Absolute Auto 1.9 1.2 - 4.9 X10*3/uL [facility] Monocytes Absolute Auto 0.5 0.1 - 1.2 X10*3/uL [facility] Eosinophils Absolute Auto 0.1 0.0 - 0.4 X10*3/uL [facility] Basophils Absolute Auto 0.0 0.0 - 0.2 X10*3/uL [facility] NRBC Abs Auto 0.000 0.0 - 0.012 X10*3/uL [facility] [facility] 09/28/2024 12:3 5 PM EDT 09/28/2024 12:39 PM EDT us Generic External Data Provider LAB BLOOD ORDERAB LES Final Result [facility] [address] [place] [address] [phone] * Prothrombin Time-INR (09/28/2024 12:35 PM EDT) Prothrombin Time 11.0 10.9 - 12.4 SEC [facility] INTERNATIONAL NORM RATIO 1.0 0.9 - 1.1 [facility] Comment:INTERNATIONAL NORMAL IZED RATIO (INR) REFERENCE [...] Provider LAB BLOOD ORDERAB LES Final Result [facility] [address] [place] [phone] * MAMMO BREAST JOSE JUAN ADDTL VIEW RIGHT (09/15/2021 2:26 PM EDT) Anatomical Region Laterality Modality Breast Bilateral Mammography 09/15/2021 2:26 PM EDT Narrative 09/16/2021 8:32 AM EDT Refer to [facility] for result details Legacy Procedure: MAMMO BREAST JSOE JUAN ADDTL VIEW RIGHT Procedure Note Provider, MD Erik - 06/03/2022 Refer to Laci for result details Legacy Procedure: MAMMO BREAST JOSE JUAN ADDTL VIEW RIGHT Agata Reza MD IMG BI PROCEDURES Final Resul t * Liquid-based Pap (11/04/2018 10:13 PM EDT) Other Findings FUNGAL ORGANISMS MORPHOLOGICALLY CONSISTENT WITH SD SPP [facility] HPV REFLEX? HPV High Risk Regardless [facility] CYTOLOGY CVX/VAG DOC CYTO NEGATIVE FOR INTRAEPITHELIAL LESION OR MALIGNANCY [facility] LAB AP EMBEDDED IMAGES [facility] Other Findings REACTIVE CELLULAR CHANGES ASSOCIATED WITH INFLAMMATION [facility] Additional Information The Pap test is a generally effective screening test for squamous cervical [facility] CYTOLOGY CVX/VAG DOC CYTO DATION [...] AP CASE REPORT First Screen: Arlet Roman [facility] SH LAB AP DISC PAD KNOCKOUT WORKER SPECIMEN ADEQUACY Satisfactory for evaluation, endocervical/trans formation zone component present [facility] Other Findings PLEASE REFER TO THE SEPARATE REPORT FOR THE HPV RESULT [facility] Additional Information is evaluated on a regular repetitive basis and clinically correlated. [facility] LAB AP CASE REPORT Pathologist: Amos Umanzor MD [facility] Additional Information Suspicious signs or symptoms may warrant follow-up studies regardless of [facility] Additional Information Pap test findings. [facility] LAB AP CASE REPORT Specimen: Liquid-Based Pap, Screening, Vagina, Cloudy [facility] Additional Information [facility] Additional Information CPT 83601 [facility] LAB AP CASE REPORT Gynecologic Cytology Case: [id number] [facility] LAB AP CASE REPORT Authorizing Provider: Agata Reza MD Collected: 11/04/2018 2213 [facility] LAB AP CASE REPORT Ordering Location: [facility] Received: 11/04/2018 2213 [facility] Clinical Information Z01.419 Encounter for gynecological examination without abnormal finding [facility] Clinical Information [facility] 11/04/2018 10:1 3 PM EDT us Agata Reza MD LAB CYTOLOGY ORDERABLES Final Result [facility] [address] * HPV DNA XXX Ql Amp [...] DNA CVX QL PROBE+SIG AMP Negative Negative [facility] Comment:Testing did not dete ct the presence of high-risk HPV type 16. 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
--- OUTSIDE RECORDS SUMMARY | 2024-12-14 14:42 | XMS_ITS | Clinical Summary ---
Author Organization [address] [facility] Address [address] [place] [address] Phone Care Team Providers Care Air Brush Decorator Name Role Phone Cheri Gallardo MD Primary Care Provider [phone] Encounters Date Type Department Care Team Description 09/30/2024 Lab Requisition [facility] - Main Lab [address] [facility] [place] [address] Cheri Gallardo MD Essential (primary) hypertension; Vitamin D deficiency, unspecified; Gastro-esophageal reflux disease without esophagitis; Heart failure, unspecified (CMS/[facility] V24, [facility] V28) from Last 3 Months Social History Tobacco Use Types Packs/Day Years Used Date Smoking Tobacco: Never Assessed Comments Unknown Sex and Gender Information Value Date Recorded Sex Assigned at Not on file Legal Sex Female 10:05 AM EDT Gender Identity Not on file Sexual Orientation Not on file Plan of Treatment Health Maintenance Due Date Last Done Comments Colorectal Cancer Screening: Colonoscopy 1958 DTaP,Tdap,and Td Vaccines (1 - Tdap) 1977 Pneumococcal Vaccine: 50+ Years (1 of 2 - PCV) 1977 Zoster Vaccines (1 of 2) 2008 RSV Immunization Adult Patients (1 - Risk 60-74 years 1-dose series) 2018 Breast Cancer Screening 09/16/2023 09/15/2021 Depression Screening 03/11/2024 Cholesterol Screening (Lipid Panel) 10/01/2024 Falls Risk Assessment 10/01/2024 Hepatitis C [...] without esophagitis Heart failure, unspecified (CMS/HCC V24, CMS/[facility] V28) VITAMIN B12 AND FOLATE Routine 5:14 AM EDT Essential (primary) hypertension Vitamin D deficiency, unspecified Gastro-esophageal reflux disease without esophagitis Heart failure, unspecified (CMS/HCC V24, CMS/[facility] V28) VITAMIN D 25 HYDROXY Routine 09/30/2024 5:14 AM EDT Essential (primary) hypertension Vitamin D deficiency, unspecified Gastro-esophageal reflux disease without esophagitis Heart failure, unspecified (CMS/HCC V24, CMS/[facility] V28) COMPREHENSIVE METABOLIC PANEL Routine 09/30/2024 5:14 AM EDT Essential (primary) hypertension Vitamin D deficiency, unspecified Gastro-esophageal reflux disease without esophagitis Heart failure, unspecified (CMS/HCC V24, CMS/[facility] V28) COMPLETE BLOOD COUNT Routine 09/30/2024 5:14 AM EDT Essential (primary) hypertension Vitamin D deficiency, unspecified Gastro-esophageal reflux disease without esophagitis Heart failure, unspecified ([facility] V24, [facility] V28) from Last 3 Months Results * Vitamin B12 and folate (09/30/2024 5:14 AM EDT) Pathologist [facility] Vitamin B-12 362 250 - 900 pcg/mL LAB CHEMISTRY METHOD 09/30/2024 11:35 AM EDT [facility] Folate 4.2 2.8 - 17.0 ng/ml LAB CHEMISTRY METHOD 09/30/2024 11:35 AM EDT [facility] Blood Venous blood specimen / Unknown Venipuncture / Unknown 09/30/2024 5:14 AM EDT 09/30/2024 10:11 AM EDT Cheri Gallardo MD LAB BLOOD ORDERABLES Final Resul t Performing Organization Address City/[facility]/ZIP Co de Phone Number [facility] [address] [place] [address], [place] [phone] * (ABNORMAL) Vitamin D 25 hydroxy (09/30/2024 5:14 AM EDT) Pathologist [facility] Vit D, 25-Hydroxy 91.4(H) 30.0 - 80.0 ng/mL LAB CHEMISTRY METHOD 09/30/2024 12:44 PM EDT [facility] Blood Venous blood specimen / Unknown Venipuncture / Unknown 09/30/2024 5:14 AM EDT 09/30/2024 10:11 AM EDT Cheri Gallardo MD LAB BLOOD ORDERABLES Final Resul t [facility] [address] [place] [address], * Complete blood count (09/30/2024 5:14 AM EDT) [facility] WBC 8.3 4.8 - 10.8 K/mcL LAB HEMETOLOGY METHOD 09/30/2024 10:37 AM [facility] RBC 3.90 3.80 - 4.80 M/mcL LAB HEMETOLOGY METHOD 09/30/2024 10:37 AM [facility] Hemoglobin 11.5 11.5 - 16.0 g/dL LAB HEMETOLOGY METHOD 09/30/2024 10:37 AM [facility] Hematocrit 35.8 35.0 - 47.0 % LAB HEMETOLOGY METHOD 09/30/2024 10:37 AM [facility] MCV 92.7 79.0 - 98.0 FL LAB HEMETOLOGY METHOD 09/30/2024 10:37 AM [facility] MCH 29.8 27.0 - 32.0 pcg LAB HEMETOLOGY METHOD 09/30/2024 10:37 AM [facility] MCHC 32.1 32.0 - 37.0 g/dL LAB HEMETOLOGY METHOD 09/30/2024 10:37 AM [facility] RDW 12.7 11.0 - 15.0 % LAB HEMETOLOGY METHOD 09/30/2024 10:37 AM [facility] Platelets 337 130 - 400 K/mcL LAB HEMETOLOGY METHOD 09/30/2024 10:37 AM [facility] MPV 10.2 7.0 - 11.0 FL LAB HEMETOLOGY METHOD 09/30/2024 10:37 AM [facility] NRBC 0.0 <1.0 % LAB HEMETOLOGY METHOD 09/30/2024 10:37 AM [facility] NRBC Absolute 0.00 <0.10 K/mcL LAB HEMETOLOGY METHOD 09/30/2024 10:37 AM EDT [facility] Blood Venous blood specimen / Unknown Venipuncture / Unknown 09/30/2024 5:14 AM EDT 09/30/2024 10:11 AM EDT us Cheri Gallardo MD LAB BLOOD ORDERABLES Final Resul t Performing Organization Address [facility]/ZIP Co de Phone Number [facility] [address] [place] [address], [place] [phone] * Iron (09/30/2024 5:14 AM EDT) Pathologist [facility] Iron 48 40 - 150 mcg/dL LAB CHEMISTRY METHOD 09/30/2024 11:12 AM EDT [facility] Blood Venous blood specimen / Unknown Venipuncture / Unknown 09/30/2024 5:14 AM EDT 09/30/2024 10:11 AM EDT us Cheri Gallardo MD LAB BLOOD ORDERABLES Final Resul t Performing Organization Address [facility] de Phone Number [facility] [address] [place] [address], [place] [phone] * (ABNORMAL) Comprehensive metabolic panel (09/30/2024 5:14 AM EDT) [facility] Sodium 141 133 - 145 mmol/L LAB CHEMISTRY METHOD 09/30/2024 11:35 AM EDT [facility] Potassium 4.0 3.5 - 5.5 mmol/L LAB CHEMISTRY METHOD 09/30/2024 11:35 AM EDT [facility] Chloride 106 96 - 110 mmol/L LAB CHEMISTRY METHOD 09/30/2024 11:35 AM EDT [facility] CO2 27 21 - 32 mmol/L LAB CHEMISTRY METHOD 09/30/2024 11:35 AM [facility] Anion Gap 8 3 - 11 LAB CHEMISTRY METHOD 09/30/2024 11:35 AM [facility] Glucose 69(L) 70 - 100 mg/dL LAB CHEMISTRY METHOD 09/30/2024 11:35 AM [facility] BUN 16 5 - 25 mg/dL LAB CHEMISTRY METHOD 09/30/2024 11:35 AM [facility] Creatinine 0.91 0.50 - 1.10 mg/dL LAB CHEMISTRY METHOD 09/30/2024 11:35 AM [facility] eGFR 70 >=60 mL/min/1. 73m2 LAB CHEMISTRY METHOD 09/30/2024 11:35 AM [facility] Comment:Calculation based on the Chronic Kidney Disease Epidemiology Collaboration (CKD-EPI) equation refit without adjustment for race. BUN/Creatinine Ratio 17.6 LAB CHEMISTRY METHOD 09/30/2024 11:35 AM [facility] Calcium 9.7 8.5 - 10.5 mg/dL LAB CHEMISTRY METHOD 09/30/2024 11:35 AM [facility] AST (SGOT) 10 10 - 42 unit/L LAB CHEMISTRY METHOD 09/30/2024 11:35 AM [facility] ALT (SGPT) 14 10 - 60 unit/L LAB CHEMISTRY METHOD 09/30/2024 11:35 AM [facility] Alkaline Phosphatase 65 42 - 121 unit/L LAB CHEMISTRY METHOD 09/30/2024 11:35 AM [facility] Total Protein 6.5 6.0 - 8.0 g/dL LAB CHEMISTRY METHOD 09/30/2024 11:35 AM [facility] Albumin 3.1(L) 3.2 - 5.0 g/dL LAB CHEMISTRY METHOD 09/30/2024 11:35 AM [facility] Total Bilirubin 0.4 0.0 - 1.4 mg/dL LAB CHEMISTRY METHOD 09/30/2024 11:35 AM EDT [facility] Blood Venous blood specimen / Unknown Venipuncture / Unknown 09/30/2024 5:14 AM EDT 09/30/2024 10:11 AM EDT us Cheri Gallardo MD LAB BLOOD ORDERABLES Final Resul t [facility] [address] [place] [address], [place] [phone] from Last 3 Months Insurance MEDICAID - [place] Care Teams Air Brush Decorator Relationship Specialty Start Date End Date Cheri Gallardo MD [address] [place] [address] [address] [place] [address] PCP - General Geriatric Medicine 09/30/24
--- OUTSIDE RECORDS SUMMARY | 2024-12-14 14:42 | XMS_ITS | Encounter Summary ---
Author Organization [employer] Address [address] [place] [address] Care Team Providers Care Assistant Teacher Primary Name Role Phone Cheri Gallardo MD Primary Care Provider [phone] Encounter Details Date Type Department Care Team (Late st Contact Info) Description 09/30/2024 Lab Requisition [facility] - Main Lab [address] [facility] [place] [address] Cheri Gallardo MD [address] [place] [address] Essential (primary) hypertension; Vitamin D deficiency, unspecified; [...] reflux disease without esophagitis Heart failure, unspecified (CMS/[facility] V24, CMS/[facility] V28) IRON Routine 09/30/2024 5:14 AM EDT Essential (primary) hypertension Vitamin D deficiency, unspecified Gastro-esophageal reflux disease without esophagitis Heart failure, unspecified (CMS/HCC V24, CMS/[facility] V28) COMPREHENSIVE METABOLIC PANEL Routine 09/30/2024 5:14 AM EDT Essential (primary) hypertension Vitamin D deficiency, unspecified Gastro-esophageal reflux disease without esophagitis Heart failure, unspecified (CMS/HCC V24, CMS/[facility] V28) documented in this encounter Results * Iron (09/30/2024 5:14 AM EDT) Pathologist [facility] Iron 48 40 - 150 mcg/dL LAB CHEMISTRY METHOD 09/30/2024 11:12 AM EDT [facility] Blood Venous blood specimen / Unknown Venipuncture / Unknown 09/30/2024 5:14 AM EDT 09/30/2024 10:11 AM EDT Cheri Gallardo MD LAB BLOOD ORDERABLES Final Resul t [facility] [address] [place] [address], * Vitamin B12 and folate (09/30/2024 5:14 AM EDT) Pathologist [facility] Vitamin B-12 362 250 - 900 pcg/mL LAB CHEMISTRY METHOD 09/30/2024 11:35 AM EDT [facility] Folate 4.2 2.8 - 17.0 ng/ml LAB CHEMISTRY METHOD 09/30/2024 11:35 AM EDT [facility] Blood Venous blood specimen / Unknown Venipuncture / Unknown 09/30/2024 5:14 AM EDT 09/30/2024 10:11 AM EDT us Cheri Gallardo MD LAB BLOOD ORDERABLES Final Resul t Performing Organization Address [facility]/ZIP Co de Phone Number [facility] [address] [place] [address], [place] [phone] * (ABNORMAL) Vitamin D 25 hydroxy (09/30/2024 5:14 AM EDT) [facility] Vit D, 25-Hydroxy 91.4(H) 30.0 - 80.0 ng/mL LAB CHEMISTRY METHOD 09/30/2024 12:44 PM EDT [facility] Blood Venous blood specimen / Unknown Venipuncture / Unknown 09/30/2024 5:14 AM EDT 09/30/2024 10:11 AM EDT us Cheri Gallardo MD LAB BLOOD ORDERABLES Final Resul t Performing Organization Address [facility] de Phone Number [facility] [address] [place] [address], [place] [phone] * (ABNORMAL) Comprehensive metabolic panel (09/30/2024 5:14 AM EDT) [facility] Sodium 141 133 - 145 mmol/L LAB CHEMISTRY METHOD 09/30/2024 11:35 AM EDT [facility] Potassium 4.0 3.5 - 5.5 mmol/L LAB CHEMISTRY METHOD 09/30/2024 11:35 AM EDT [facility] Chloride 106 96 - 110 mmol/L LAB CHEMISTRY METHOD 09/30/2024 11:35 AM EDT [facility] CO2 27 21 - 32 mmol/L LAB CHEMISTRY METHOD 09/30/2024 11:35 AM EDT [facility] Anion Gap 8 3 - 11 LAB CHEMISTRY METHOD 09/30/2024 11:35 AM EDT [facility] Glucose 69(L) 70 - 100 mg/dL LAB CHEMISTRY METHOD 09/30/2024 11:35 AM [facility] BUN 16 5 - 25 mg/dL LAB CHEMISTRY METHOD 09/30/2024 11:35 AM [facility] Creatinine 0.91 0.50 - 1.10 mg/dL LAB CHEMISTRY METHOD 09/30/2024 11:35 AM [facility] eGFR 70 >=60 mL/min/1. 73m2 LAB CHEMISTRY METHOD 09/30/2024 11:35 AM [facility] Comment:Calculation based on the Chronic Kidney Disease Epidemiology Collaboration (CKD-EPI) equation refit without adjustment for race. BUN/Creatinine Ratio 17.6 LAB CHEMISTRY METHOD 09/30/2024 11:35 AM [facility] Calcium 9.7 8.5 - 10.5 mg/dL LAB CHEMISTRY METHOD 09/30/2024 11:35 AM [facility] AST (SGOT) 10 10 - 42 unit/L LAB CHEMISTRY METHOD 09/30/2024 11:35 AM [facility] ALT (SGPT) 14 10 - 60 unit/L LAB CHEMISTRY METHOD 09/30/2024 11:35 AM [facility] Alkaline Phosphatase 65 42 - 121 unit/L LAB CHEMISTRY METHOD 09/30/2024 11:35 AM [facility] Total Protein 6.5 6.0 - 8.0 g/dL LAB CHEMISTRY METHOD 09/30/2024 11:35 AM [facility] Albumin 3.1(L) 3.2 - 5.0 g/dL LAB CHEMISTRY METHOD 09/30/2024 11:35 AM [facility] Total Bilirubin 0.4 0.0 - 1.4 mg/dL LAB CHEMISTRY METHOD 09/30/2024 11:35 AM [facility] Blood Venous blood specimen / Unknown Venipuncture / Unknown 09/30/2024 5:14 AM EDT 09/30/2024 10:11 AM EDT us Cheri Gallardo MD LAB BLOOD ORDERABLES Final Resul t [facility] [address] [place] [address], [place] [phone] * Complete blood count (09/30/2024 5:14 AM EDT) WBC 8.3 4.8 - 10.8 K/mcL LAB HEMETOLOGY METHOD 09/30/2024 10:37 AM EDT [facility] RBC 3.90 3.80 - 4.80 M/mcL LAB HEMETOLOGY METHOD 09/30/2024 10:37 AM EDT [facility] Hemoglobin 11.5 11.5 - 16.0 g/dL LAB HEMETOLOGY METHOD 09/30/2024 10:37 AM EDT [facility] Hematocrit 35.8 35.0 - 47.0 % LAB HEMETOLOGY METHOD 09/30/2024 10:37 AM EDT [facility] MCV 92.7 79.0 - 98.0 FL LAB HEMETOLOGY METHOD 09/30/2024 10:37 AM EDT [facility] MCH 29.8 27.0 - 32.0 pcg LAB HEMETOLOGY METHOD 09/30/2024 10:37 AM EDT [facility] MCHC 32.1 32.0 - 37.0 g/dL LAB HEMETOLOGY METHOD 09/30/2024 10:37 AM EDT [facility] RDW 12.7 11.0 - 15.0 % LAB HEMETOLOGY METHOD 09/30/2024 10:37 AM EDT [facility] Platelets 337 130 - 400 K/mcL LAB HEMETOLOGY METHOD 09/30/2024 10:37 AM EDT [facility] MPV 10.2 7.0 - 11.0 FL LAB HEMETOLOGY METHOD 09/30/2024 10:37 AM EDT [facility] NRBC 0.0 <1.0 % LAB HEMETOLOGY METHOD 09/30/2024 10:37 AM EDT [facility] NRBC Absolute 0.00 <0.10 K/mcL LAB HEMETOLOGY METHOD 09/30/2024 10:37 AM EDT [facility] Blood Venous blood specimen / Unknown Venipuncture / Unknown 09/30/2024 5:14 AM EDT 09/30/2024 10:11 AM EDT Cheri Gallardo MD LAB BLOOD ORDERABLES Final Resul t [facility] [address] [place] [address], documented in this encounter Visit Diagnoses Diagnosis Essential (primary) hypertension Unspecified essential hypertension Vitamin D deficiency, unspecified Gastro-esophageal reflux disease without esophagitis Heart failure, unspecified (CMS/HCC V24, CMS/HCC V28) Heart failure, unspecified documented in this encounter Care Teams Assistant Teacher Primary Relationship Specialty Start Date End Date Cheri Gallardo MD [address] [place] [address] [address] [place] [address] PCP - General Geriatric Medicine 09/30/24 documented as of this encounter
== END 2024-12-14 13:04 | disposition home or self-care (01) ==
LOC: HO.HSM 12:18
PROVIDERS: PCP Internal Medicine; Visit Provider Registered Nurse
DX: R53.1 Weakness (principal); I69.30 Unspecified sequelae of cerebral infarction
CPT/HCPCS: 99214

== ENCOUNTER → 2024-12-14 12:18 | Outpatient (BNVA) | payer OTHER, SELFPAY | PROVIDERS: PCP Internal Medicine; Visit Provider Registered Nurse | DX: I69.351 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 right dominant side (principal) | CPT/HCPCS: 99212 ==

== ENCOUNTER 2025-01-07 09:17 | Emergency (ER) | payer OTHER, SELFPAY ==
[2025-01-07] VITALS (7 sets, daily range): BP systolic 123–148; BP diastolic 49–82; PULSE 70–84; RESP 16–27; TEMP 36.5–36.7; O2SAT 96–98; BMI 53.1
--- NOTE | ~2025-01-07 | CT_ITS ---
EXAMINATION: CTA NECK WITH CONTRAST (STROKE) CTA BRAIN WITH CONTRAST (STROKE) CLINICAL INFORMATION: Right-sided weakness. COMPARISON: September 28, 2024 and February 26, 2024. TECHNIQUE: CTA of the head and neck was performed in the axial plane from the mediastinum to the skull vertex using 70 mL Omnipaque 350 intravenous contrast. Additional reformatted multiplanar images including maximum intensity projection MIP images are generated on the CT workstation. This CT examination was performed using dose optimization techniques as appropriate, variously including the following: *Automated exposure control *Adjustment of mA and/or kV according to patient size (this includes techniques or standardized protocols for targeted exams where dose is matched to indication/reason for exam; i.e. extremities or head) *Use of iterative reconstruction technique DLP: 672 mGy-cm FINDINGS: The degree of stenosis determined by criteria similar to NASCET. Brain: No acute intracranial hemorrhage, mass effect, midline shift, hydrocephalus or herniation. Schilling-white matter differentiation is normal. No increased density in the MCA. Posterior cranial fossa contents demonstrated no gross mass effect or hemorrhage. Normal position of the cerebellar tonsils. Sellar/suprasellar region demonstrated no gross masses. CSF prominence suggesting diaphragmatic sella insufficiency. Increased density within the left mastoid air cells and tympanic cavities. No air-fluid levels in the paranasal sinuses. Poor pneumatization of the frontal sinuses. Chest CTA: No focal stenosis, aneurysm or dissection. Calcified plaques. Neck CTA: Right CCA: Normal patency. No focal stenosis. No intimal flap. Right ICA: Normal patency. No focal stenosis. No intimal flap. Left CCA: No focal stenosis. Normal patency. Calcified plaque in the proximal segment. No intimal flap. Left ICA: Calcified plaque. No focal stenosis. Normal patency. No intimal flap. V1/V2 segments: Normal patency. No focal stenosis. No intimal flap. Right vertebral artery slightly dominant. Codominant. The origin is directly from the subclavian artery. Brain CTA: Anterior cerebral circulation: ICAs: Calcified plaques in the cavernous supracavernous segments. Normal patency. No focal stenosis. No abrupt cut off. MCA's: Normal patency. No focal stenosis. No abrupt cut off. No vascular irregularity at the bifurcation/trifurcation. ACAs: Normal patency. No focal stenosis. No abrupt cut off. Anterior communicating artery is patent. No gross irregularity. Ophthalmic arteries are patent without gross abnormality. Posterior communicating arteries are patent with small caliber. Posterior cerebral circulation: V3/V4 segments: Normal patency. No focal stenosis. No intimal flap. Posterior inferior cerebral arteries are patent and normal. Basilar artery is patent without focal stenosis or intimal flap. Superior cerebellar arteries are patent without gross abnormality. double corner cutter: Normal patency. No focal stenosis. No abrupt cut off. Ancillary findings: Patient's large body habitus/obesity. CT/CT angio head neck STROKE IMPRESSION: No main cerebral artery occlusion or embolus or aneurysm. No high degree stenosis or dissection. Calcified plaque left ICA. No acute intracranial hemorrhage or acute brain abnormality by CT. Inflammatory versus infectious process in the left tympanic cavity left mastoid air cells without coalescence. This critical test result is communicated to: Emergency physician Dr. Chris Cotton at 8:46 AM on January 07, 2025. Electronically signed by: Homero Huerta MD 01/07/2025 09:53 AM EDT
--- NOTE | ~2025-01-07 | MR_ITS ---
EXAMINATION: MR BRAIN WITHOUT IV CONTRAST HISTORY: rt side weakness TECHNIQUE: Sagittal T1, and axial T1, FLAIR, T2, gradient echo, and diffusion weighted MR images of the brain were obtained. COMPARISON: Comparison is made with the prior examination dated 02/26/2024. FINDINGS: The pituitary is normal in size. The cerebellar tonsils are normally located. Again seen are scattered periventricular and subcortical white matter hyperintensities on the FLAIR and T2-weighted images. These are nonspecific, but often seen in the setting of small vessel ischemic disease. There is no mass effect or midline shift. The ventricular system is normal in size and configuration. No intra or extra-axial fluid collections are identified. There are no foci of restricted diffusion. Normal vascular flow voids are noted in the basilar and carotid arteries. The visualized paranasal sinuses are clear. Again seen is fluid signal intensity in the bilateral mastoid air cells. On the right, this is more prominent than on the prior study. MR/MR head/brain wo con IMPRESSION: 1. No acute intracranial abnormality. 2. Fluid in the bilateral mastoid air cells. Electronically signed by: Jack Perry MD 01/07/2025 12:54 PM EDT
--- NOTE | ~2025-01-07 | XR_ITS ---
EXAMINATION: XR FOOT, RIGHT CLINICAL INFORMATION: pain COMPARISON: Right foot 11/01/2023 TECHNIQUE: AP, lateral, and oblique views of the right foot. FINDINGS: There is old healed oblique fracture distal fifth metatarsal. There is no visible acute fracture or dislocation. The ankle mortise and subtalar joints are normal. Large calcaneal heel spur and dorsal intertarsal spurring. The soft tissues are normal. XR/XR foot RT min 3V IMPRESSION: Large calcaneal heel spur and dorsal intertarsal spurring. No visible acute fracture, dislocation or subluxation seen. Electronically signed by: Rito Stewart MD 01/07/2025 02:20 PM EDT
--- NOTE | ~2025-01-07 | XR_ITS ---
EXAMINATION: XR CHEST CLINICAL INFORMATION: chest pain COMPARISON: July 14, 2024 TECHNIQUE: Frontal view of the chest was obtained. FINDINGS: Mild prominence of the interstitial markings. No consolidation, pleural fissure pneumothorax. No hyperinflation. Cardiomediastinal silhouette size is normal. Calcified plaque thoracic aorta. Multilevel thoracic spondylosis. Degenerative changes in the shoulders. Patient's large body habitus/obesity. XR/XR chest 1V IMPRESSION: Concerning mild interstitial lung edema in the correct clinical settings. Electronically signed by: Homero Huerta MD 01/07/2025 10:03 AM EDT
--- NOTE | ~2025-01-07 | CT_ITS ---
EXAMINATION: CT HEAD WITHOUT CONTRAST (STROKE PROTOCOL) CLINICAL INFORMATION: Stroke protocol. Right-sided weakness COMPARISON: CT brain 09/28/2024 TECHNIQUE: Contiguous axial imaging was performed from the skull base to vertex without intravenous administration of contrast. This CT examination was performed using dose optimization techniques as appropriate, variously including the following: *Automated exposure control *Adjustment of mA and/or kV according to patient size (this includes techniques or standardized protocols for targeted exams where dose is matched to indication/reason for exam; i.e. extremities or head) *Use of iterative reconstruction technique DLP: 699 mGy/cm. FINDINGS: There is no acute intra-axial, extra-axial bleed, masses or midline shift. There is no acute infarction evolution. There is no edema. The kyle to white matter differentiation is maintained normal. The lateral ventricles are symmetrical in size and configuration without enlargement. No abnormality seen in the posterior fossa CT/CT head for STROKE IMPRESSION: No acute intracranial process seen.. This critical result was discussed with Dr. Cotton at 9:36 AM on 01/07/2025 in ED. It was ascertained that the content and urgency of the report was understood at the time of direct communication. Electronically signed by: Rito Stewart MD 01/07/2025 09:37 AM EDT
--- NOTE | 2025-01-07 09:24 | ECG_ITS ---
Test Reason : STROKE Blood Pressure : */* mmHG Vent. Rate : 83 BPM Atrial Rate : 83 BPM P-R Int : 128 ms QRS Dur : 80 ms QT Int : 384 ms P-R-T Axes : 52 13 27 degrees QTcB Int : 451 ms Normal sinus rhythm Normal ECG When compared with ECG of 28-Sep-2024 11:49, No significant change was found Referred By: Chris Cotton Electronically Signed By: BRADY GENAO
--- NOTE | 2025-01-07 09:25 | ED.NEUROSD ---
HPI - Neuro Symptoms/Deficit General Chief Complaint: Stroke Stated Complaint: ?STROKE,LKWT/4A,WEAK/R,COLEMAN,UNK THIN,H/O STROKE/SZ Time Seen by Provider: 01/07/25 09:23 Source: EMS Mode of arrival: EMS History of Present Illness HPI Narrative: This is a 64 years old patient presented to the emergency department complaining of right-sided weakness. She states around 04:00 she started to feel weakness in the right arm and right leg she is unable to raise the right arm and right leg against gravity. Patient has a history of hypertension history of stroke in 2021 she has some weakness in the right side but now is worse Onset (ago): hour(s) (5.5 ) Last Observed Normal: 04:00 Location: right arm and right leg Severity: moderate Quality: weak Relieving factors: none Exacerbating factors: none Associated symptoms: denies other symptoms Related Data Home Medications ?Medication ?Instructions ?Recorded ?Confirmed atorvastatin 40 mg tablet 40 mg PO BEDTIME 08/06/22 12/14/24 cholecalciferol (vitamin D3) 125 125 mcg PO DAILY 08/06/22 09/28/24 mcg (5,000 unit) tablet (Vitamin D3) clopidogrel 75 mg tablet 75 mg PO DAILY 08/06/22 12/14/24 meclizine 12.5 mg tablet 12.5 mg PO TID PRN Dizziness Or 08/06/22 09/28/24 Vertigo chlorthalidone 25 mg tablet 25 mg PO DAILY 02/26/24 09/28/24 verapamil 240 mg tablet,extended 240 mg PO BEDTIME 02/26/24 09/28/24 release lisinopril 40 mg tablet 40 mg PO DAILY 09/09/24 12/14/24 pantoprazole 20 mg tablet,delayed 20 mg PO DAILY@0630 09/09/24 09/28/24 release acetaminophen 325 mg tablet 325 mg PO Q6H PRN Pain 09/28/24 09/28/24 Allergies Allergy/AdvReac Type Severity Reaction Status Date / Time aspirin (Aspirin) Allergy Mild SWELLING, Verified 01/07/25 09:40 facial swelling, redness Sulfa (Sulfonamide Allergy Mild SWELLING, Verified 01/07/25 09:40 Antibiotics) (Sulfa facial (Sulfonamides)) swelling, redness shrimp Allergy Unknown Verified 01/07/25 09:40 Review of Systems Constitutional: Constitutional: Reports no additional constitutional complaints Cardiovascular: Cardiovascular: Reports no additional cardiovascular complaints Respiratory: Respiratory: Reports no additional respiratory complaints [facility] Past Medical History Attestation statement: The following information was validated with the patient. Medical History Hyperkeratosis Bilateral hearing loss Dry eyes, bilateral Superficial thrombosis of right lower extremity Gastritis History of endometrial cancer Personal history of stroke with residual effects Other lack of coordination Muscle wasting and atrophy, not elsewhere classified, multiple sites Peripheral vascular disease, unspecified Primary generalized (osteo)arthritis Migraine, unspecified, not intractable, without status migrainosus Cerebrovascular accident (CVA) due to embolism of left middle cerebral artery Morbid obesity with BMI of 50.0-59.9, adult 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 right dominant side Allergic rhinitis TIA (transient ischemic attack) Pulmonary hypertension Ischemic stroke Chronic diastolic (congestive) heart failure GERD (gastroesophageal reflux disease) Anxiety associated with depression Unstable gait 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 TEDDY (obstructive sleep apnea) Moderate persistent asthma without complication Lacunar infarct, acute Mood disorder Mixed hyperlipidemia Essential hypertension UTI (urinary tract infection) CVA (cerebral vascular accident) Family History Family History Mother Hypertension Father Hypertension Heart disease Sister Breast cancer Brother Diabetes Heart attack Social History Social History Household Members: Family Housing: Assisted Living Facility Do you presently have visiting nurse or other home services: No Alcohol intake: never Patient Tobacco Use Status: Never used Tobacco Smoked in Last 30 Days: No Second Hand Smoke Exposure: No Use of substances other than those prescribed or required for medical reasons: No Advance Directives: Yes Advance Directives on File: Yes Advance Directives Date on File: 09/17/24 Do you have a plan to hurt others: No Plan service: No Current occupational status: disabled Physical Exam Exam: Exam: No acute distress lying in the stretcher Vital Signs: Vital Signs: Last Vital Signs Temp 97.7 F 01/07/25 15:15 Pulse 84 01/07/25 15:15 Resp 17 01/07/25 15:15 BP 123/62 01/07/25 15:15 Pulse Ox 96 01/07/25 15:15 O2 Del Method Room Air 01/07/25 15:15 BMI result Body Mass Index 53.1 Const: General: cooperative and comfortable Nutritional Appearance: well nourished Orientation/consciousness: patient oriented x3 HEENT: Head: Yes normal to inspection Ears: hearing grossly normal bilaterally General nose exam: Normal external nose present Face and sinus: Yes normal facial exam Mouth: Normal oral and palatal mucosa present Neck: Neck: Yes normal visual inspection Chest: Chest palpation & inspection: normal inspection of the chest Resp: Effort & Inspection: normal respiratory effort Auscultation: clear to auscultation bilaterally Cardio: Jugular venous distension: no JVD Rate: regular rate Rhythm: regular rhythm GI: Inspection: Yes normal to inspection Palpation (GI): Soft to palpation Skin: General skin exam: no rashes or lesions noted and elasticity normal Lesions: no lesions Neuro: General: patient oriented x3 Cranial nerves: Yes CN's II-XII intact bilaterally Motor exam (neuro): Other motor observations present (Weakness in the right arm right leg noted) Coordination: [id number] test normal Course Reevaluation(s) Reevaluation #1: Patient MRI was negative, she is complaining of right foot pain an x-ray was done and she has a calcaneal spur Patient was seen by PT she failed physical therapy however she wants to go home skilled nursing case manager was involved we arrange VNA the patient will be discharged home via ambulance sister is at bedside Time: 15:41 Reevaluation #2: Sister now tells me that the right side weakness is chronic Time: 15:43 Medical Decision Making Medical Decision Making [facility] Narrative: Patient presented with increased weakness in the right arm right leg we will do a CTA head and neck patient is out of the window for TNK 15:40 MRI of the brain negative no stroke, complaining of right foot pain she has good pulses in the foot x-ray showed calcaneal spur, failed physical therapy but refused to go to rehab she will go home with VNA skilled nursing case manager spoke with the patient Differential Diagnosis Differential Diagnoses: The differential diagnosis associated with the presentation includes CVA/TIA Admission/Observation Consideration of admission/observation: Escalation of care including admission/observation considered Lab Data [facility] Lab Attestation statement: I reviewed the patient's lab results. 01/07/25 09:46 01/07/25 09:46 Labs: Lab Results 01/07/25 01/07/25 01/07/25 Range/Units 09:23 09:46 15:11 WBC 10.1 (4.8-10.8) X10*3/uL RBC 3.81 L (4.20-5.50) X10*6/uL Hgb 11.0 L (12.0-16.0) g/dl Hct 34.8 L (37.0-47.0) % MCV 91.3 (80.0-98.0) fL MCH 28.9 (27.0-33.0) pg MCHC 31.6 (31.0-35.0) g/dl RDW 13.2 (11.0-16.0) % Plt Count 306 (160-400) X10*3/uL MPV 9.2 L (9.4-12.3) fL Immature Gran % (Auto) 0.6 H (0.0-0.4) % Neut % (Auto) 72.9 (45-73) % Lymph % (Auto) 17.7 L (20-40) % [place] % (Auto) 7.4 (2-11) % Eos % (Auto) 0.9 (0-4) % Baso % (Auto) 0.5 (0-2) % Lymph # (Auto) 1.8 (1.2-4.9) X10*3/uL [place] # (Auto) 0.8 (0.1-1.2) X10*3/uL Eos # (Auto) 0.1 (0.0-0.4) X10*3/uL Baso # (Auto) 0.1 (0.0-0.2) X10*3/uL Abs Immat Gran (auto) 0.06 H (0.00-0.03) X10*3/uL Absolute Neuts (auto) 7.4 (2.0-8.3) x10*3/uL Absolute Nucleated RBC 0.000 (0.0-0.012) X10*3/uL Nucleated RBC % (auto) 0.0 (0.0-0.2) /100WBC PT 11.8 (10.9-12.4) SEC Whole Blood PT 13.9 H (11.1-13.5) sec INR 1.0 (0.9-1.1) Whole Blood INR 1.2 H (0.9-1.1) Sodium 140 (135-145) mmol/L Potassium 3.7 (3.3-5.1) mmol/L Chloride 106 (96-108) mmol/L Carbon Dioxide 25 (22-29) mmol/L Anion Gap 13 (12-20) BUN 21 H (9-16) mg/dL Creatinine 0.84 (0.5-1.4) mg/dL Estim Creat Clear Calc 82.8 Estimated GFR > 60 Random Glucose 91 (60-115) mg/dL Calcium 9.5 (8.4-10.2) mg/dL Total Bilirubin 0.3 (0.0-1.0) mg/dL AST 18 (5-31) U/L ALT 9 (0-31) U/L Alkaline Phosphatase 53 (39-117) U/L Troponin I High Sens 2.8 (<3.5-17.0) ng/L Total Protein 7.2 (6.5-8.0) g/dL Albumin 3.8 (3.5-5.0) g/dL COVID-19 (HUGO) Negative (Negative) COVID-19 Clin Com See Note Independent Interpretation I performed an independent interpretation of an: MRI Interpretation: No stroke Radiology Impression Discussion of test interpretation with radiology: I have reviewed the radiologist's reading. Radiologist Impression: FINDINGS: The pituitary is normal in size. The cerebellar tonsils are normally located. Again seen are scattered periventricular and subcortical white matter hyperintensities on the FLAIR and T2-weighted images. These are nonspecific, but often seen in the setting of small vessel ischemic disease. There is no mass effect or midline shift. The ventricular system is normal in size and configuration. No intra or extra-axial fluid collections are identified. There are no foci of restricted diffusion. Normal vascular flow voids are noted in the basilar and carotid arteries. The visualized paranasal sinuses are clear. Again seen is fluid signal intensity in the bilateral mastoid air cells. On the right, this is more prominent than on the prior study. MR/MR head/brain wo con IMPRESSION: 1. No acute intracranial abnormality. 2. Fluid in the bilateral mastoid air cells. Electronically signed by: Jack Perry MD 01/07/2025 12:54 PM EDT Independent Historian Clinical information obtained from an independent historian. History obtained from or confirmed by: EMS EMS and sister External Record Review External record reviewed: Inpatient record Chronic Conditions Patient?s care impacted by: Other History of CVA in the past Critical Care Time Critical Care Time Critical Care Time: Yes Total Critical Care Time: 60 Attestation: Acute evaluation for possible stroke speaking with the EMS/family member sister, ordering and reviewing CTA head and neck and MRI of the brain Discharge Plan Discharge Clinical Impression: Right arm weakness Calcaneal spur Qualifiers: Laterality: right Qualified Code(s): M77.31 - Calcaneal spur, right foot Patient Disposition: Home, Self-Care Additional Instructions: MRI of the brain no stroke, you declined rehab make sure you follow-up with your primary care physician call in AM Prescriptions: No Action verapamil 240 mg tablet extended release 240 mg PO BEDTIME chlorthalidone 25 mg tablet 25 mg PO DAILY acetaminophen 325 mg Tablet 325 mg PO Q6H PRN (Reason: Pain) atorvastatin 40 mg tablet 40 mg PO BEDTIME meclizine 12.5 mg tablet 12.5 mg PO TID PRN (Reason: Dizziness Or Vertigo) clopidogrel 75 mg tablet 75 mg PO DAILY cholecalciferol (vitamin D3) [Vitamin D3] 125 mcg (5,000 unit) tablet 125 mcg PO DAILY lisinopril 40 mg tablet 40 mg PO DAILY pantoprazole 20 mg tablet,delayed release (DR/EC) 20 mg PO DAILY@0630 Referrals: Emily [facility]AL [Outside] Referral Note: Agency will call to arrange visit. Print Language: [place]
--- NOTE | 2025-01-07 09:48 | PC.NURSE ---
Patient presents to ED c/o stroke like symptoms Increased weakness on left side, increased pain in left foot. 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
[2025-01-07 09:54] LABS: MANUAL DIFF FLAG NO
[2025-01-07 09:56] LABS: Hematocrit 34.8 % (37.0-47.0); Hemoglobin 11.0 g/dl (12.0-16.0); Imm Gran Abs Auto 0.06 X10*3/uL (0.00-0.03); Imm Gran Pct Auto 0.6 % (0.0-0.4); Lymphocytes Absolute Auto 1.8 X10*3/uL (1.2-4.9); Mean Corpuscular HGB Conc 31.6 g/dl (31.0-35.0); Mean Corpuscular Hemoglobin 28.9 pg (27.0-33.0); Mean Corpuscular Volume 91.3 fL (80.0-98.0); NRBC Abs Auto 0.000 X10*3/uL (0.0-0.012); NRBC Pct Auto 0.0 /100WBC (0.0-0.2); Platelet Count 306 X10*3/uL (160-400); Red Blood Count 3.81 X10*6/uL (4.20-5.50); White Blood Count 10.1 X10*3/uL (4.8-10.8)
[2025-01-07 10:00] LABS: Prothrombin Time Whole Bld POC 13.9 sec (11.1-13.5); ~PT, ~INR - Anti Coag Clinic 1.2 (0.9-1.1)
[2025-01-07 10:06] LABS: INTERNATIONAL NORM RATIO 1.0 (0.9-1.1); Prothrombin Time 11.8 SEC (10.9-12.4)
[2025-01-07 10:10] LABS: Alanine Aminotransferase 9 U/L (0-31); Albumin Level 3.8 g/dL (3.5-5.0); Alkaline Phosphatase 53 U/L (39-117); Anion Gap 13 (12-20); Aspartate Amino Transferase 18 U/L (5-31); Blood Urea Nitrogen 21 mg/dL (9-16); Calcium 9.5 mg/dL (8.4-10.2); Carbon Dioxide 25 mmol/L (22-29); Chloride 106 mmol/L (96-108); Creatinine Clr Calc Pharmacy 82.8; Estimated Glomerular Filt Rate > 60; Potassium 3.7 mmol/L (3.3-5.1); Sodium 140 mmol/L (135-145); Total Protein 7.2 g/dL (6.5-8.0)
--- NOTE | 2025-01-07 10:14 | MHC.STROKE ---
Called to ED for stroke alert. Pt awake, alert and answering questions appropriately. Pt reports right arm and leg heaviness and tingling since 0. Pt has a hx of right sided weakness however states that this feels heavier than normal. Denies any speech issues or confusion. Pt reports that the patient takes plavix and walks occasionally with a walker. Stroke Education reviewed with patient via sign language interpreter. Stroke pamphlet provided Medical history reviewed with patient including medications, diet, activity and social hx. Pt reports that she rents an apartment from a friend and this friend helps her 18 hours/week. Denies smoking, etoh. Reports that she walks occasionally. All questions answered. Will continue to assist as needed.
[2025-01-07 10:19] LABS: Troponin-I High Sensitivity 2.8 ng/L (<3.5-17.0)
--- OUTSIDE RECORDS SUMMARY | 2025-01-07 12:24 | XMS_ITS | Encounter Summary ---
Author Organization [employer] Address [address] [facility] [address] [address] Care Team Providers Care Cushion Stuffer Name Role Phone Massiel Nelson [facility] Primary Care Provider Anna Garcia MD Primary Care Provider [phone] Kate Cesar MD Primary Care Provider + Encounter Details Date Type Department Care Team (Late Contact Info) Description 04/02/2022 Orders Only [facility] PRIMARY/PEDS [address] [place] [address], [address] [place] [id number] Roxanne Howard, CONFERENCE CENTER COORDINATOR [address] [facility] [address] [place] [id number] Social History Tobacco Use Types Packs/Day Years [...] Description 02/12/2025 11:30 AM EST Office Visit [facility] MEDICINE [address] [place] [address] Kate Cesar MD [address] [place] [address] 03/15/2025 10:30 AM EST Office Visit [facility] OPTOMETRY [address] [place] [address] Rogerjonny Vicki, OD [address] [place] [address] documented as of this encounter Visit Diagnoses Not on filedocumented in this encounter Care Teams Cushion Stuffer Relationship Specialty Start Date End Date [facility] P[facility] - General 03/24/22 06/09/23 Anna Parnell MD [address] [place] [id number] PCP - General Internal Medicine 06/10/23 10/31/23 Kate Cesar MD [address] [place] [address] PCP - General Internal Medicine 03/24/24 documented as of this encounter
--- OUTSIDE RECORDS SUMMARY | 2025-01-07 12:24 | XMS_ITS | Encounter Summary ---
Author Organization [employer] Address [address] [facility] [address], [place] [address] Care Team Providers Care Aircraft Electronics Technical Officer Name Role Phone Massiel Nelson [facility] Primary Care Provider Anna Garcia MD Primary Care Provider [phone] Kate Cesar MD Primary Care Provider + Encounter Details Date Type Department Care Team (Late Contact Info) Description 10/18/2022 Orders Only [facility] PRIMARY/PEDS [address] [place] [address], [address] [place] [address] Massiel Nelson [facility] Social History Tobacco Use Types [...] Upcoming Encounters Date Type Department Care Team ([facility] Contact Info) Description 02/12/2025 11:30 AM EST Office Visit [facility] MEDICINE [address] [place] [address] Kate Cesar MD [address] [place] [address] 03/15/2025 10:30 AM EST Office Visit [facility] OPTOMETRY [address] [place], [place] [id number] Jodi Vicki, OD [address] [place] [address] documented as of this encounter Visit Diagnoses Not on filedocumented in this encounter Additional Health Concerns Assessment Noted Time PHQ-9 Depression Total Score: 6 09/11/19 23 12:43 PM EDT documented as of this encounter Care Teams Aircraft Electronics Technical Officer Relationship Specialty Start Date End Date [facility] PCP - General 03/24/22 06/09/23 Anna Parnell MD [address] [place] [id number] PCP - General Internal Medicine 06/10/23 10/31/23 Kate Cesar MD [address] [place] [address] PCP - General Internal Medicine 03/24/24 documented as of this encounter
--- OUTSIDE RECORDS SUMMARY | 2025-01-07 12:24 | XMS_ITS | Encounter Summary ---
Author Organization [employer] Address [address] [facility] [address] [address] Care Team Providers Care Pipelaying Fitter Name Role Phone Kate Cesar MD Primary Care Provider + Reason for Visit * Reason Onset Date Comments Durable Medical Equipment 12/22/2024 Encounter Details Date Type Department Care Team (Late st Contact Info) Description 12/22/2024 Telephone [facility] MEDICINE [address] [place] [address] Kate Cesar MD [address] [place] [address] Durable Medical Equipment Social History Tobacco Use Types Packs/Day Years [...] encounter Miscellaneous Notes * Telephone Encounter - Kate Cesar MD - 01/05/2025 9:18 AM EDT Re DME, yes , please write order. I think she already had that DME if not covered, she'll have to fu with insurance * Telephone Encounter - Samuel Todd - 12/22/2024 3:50 PM EDT TC from pt reports received DME 1.Raised toilet seat 2.Commode (needs Oversized) Received from [facility] but both are too Small . Needs provider to do a new script specifying larger size for someone over 300lb documented in this encounter Plan of Treatment Upcoming Encounters Date Type Department Care Team (Late st Contact Info) Description 02/12/2025 11:30 AM EST Office Visit [facility] MEDICINE [address] [place] [address] Kate Cesar MD [address] [place] [address] 03/15/2025 10:30 AM EST Office Visit [facility] OPTOMETRY [address] [place] [address] Vicki Zapata, OD [address] [place] [address] documented as of this encounter Visit Diagnoses Not on filedocumented in this encounter Additional Health Concerns Assessment Noted Time PHQ-9 Depression Total Score: 20 025 3:34 PM EDT documented as of this encounter Care Teams Pipelaying Fitter Relationship Specialty Start Date End Date Kate Cesar MD [address] [place] [address] PCP - General Internal Medicine 03/24/24 documented as of this encounter
--- OUTSIDE RECORDS SUMMARY | 2025-01-07 12:24 | XMS_ITS | Encounter Summary ---
Author Organization [facility] Address [address] [place] [address] Care Team Providers Care Reel System Operator Name Role Phone Cheri Gallardo MD Primary Care Provider [phone] Encounter Details Date Type Department Care Team (Late st Contact Info) Description 09/30/2024 Lab Requisition [facility] - Main Lab [address] [facility] [place] [address] Cheri Gallardo MD [address] [place] [address] Essential (primary) hypertension; Vitamin D deficiency, unspecified; [...] reflux disease without esophagitis Heart failure, unspecified (CMS/[facility] V24, CMS/[facility] V28) IRON Routine 09/30/2024 5:14 AM EDT Essential (primary) hypertension Vitamin D deficiency, unspecified Gastro-esophageal reflux disease without esophagitis Heart failure, unspecified (CMS/HCC V24, CMS/[facility] V28) COMPREHENSIVE METABOLIC PANEL Routine 09/30/2024 5:14 AM EDT Essential (primary) hypertension Vitamin D deficiency, unspecified Gastro-esophageal reflux disease without esophagitis Heart failure, unspecified (CMS/HCC V24, CMS/[facility] V28) documented in this encounter Results * Iron (09/30/2024 5:14 AM EDT) Pathologist [facility] Iron 48 40 - 150 mcg/dL LAB CHEMISTRY METHOD 09/30/2024 11:12 AM EDT [facility] Blood Venous blood specimen / Unknown Venipuncture / Unknown 09/30/2024 5:14 AM EDT 09/30/2024 10:11 AM EDT Cheri Gallardo MD LAB BLOOD ORDERABLES Final Resul t [facility] [address] [place] [address], * Vitamin B12 and folate (09/30/2024 5:14 AM EDT) Pathologist [facility] Vitamin B-12 362 250 - 900 pcg/mL LAB CHEMISTRY METHOD 09/30/2024 11:35 AM EDT [facility] Folate 4.2 2.8 - 17.0 ng/ml LAB CHEMISTRY METHOD 09/30/2024 11:35 AM EDT [facility] Blood Venous blood specimen / Unknown Venipuncture / Unknown 09/30/2024 5:14 AM EDT 09/30/2024 10:11 AM EDT us Cheri Gallardo MD LAB BLOOD ORDERABLES Final Resul t Performing Organization Address [facility]/ZIP Co de Phone Number [facility] [address] [place] [address], [place] [phone] * (ABNORMAL) Vitamin D 25 hydroxy (09/30/2024 5:14 AM EDT) [facility] Vit D, 25-Hydroxy 91.4(H) 30.0 - 80.0 ng/mL LAB CHEMISTRY METHOD 09/30/2024 12:44 PM EDT [facility] Blood Venous blood specimen / Unknown Venipuncture / Unknown 09/30/2024 5:14 AM EDT 09/30/2024 10:11 AM EDT us Cheri Gallardo MD LAB BLOOD ORDERABLES Final Resul t Performing Organization Address [facility] de Phone Number [facility] [address] [place] [address], [place] [phone] * (ABNORMAL) Comprehensive metabolic panel (09/30/2024 5:14 AM EDT) [facility] Sodium 141 133 - 145 mmol/L LAB CHEMISTRY METHOD 09/30/2024 11:35 AM EDT [facility] Potassium 4.0 3.5 - 5.5 mmol/L LAB CHEMISTRY METHOD 09/30/2024 11:35 AM EDT [facility] Chloride 106 96 - 110 mmol/L LAB CHEMISTRY METHOD 09/30/2024 11:35 AM EDT [facility] CO2 27 21 - 32 mmol/L LAB CHEMISTRY METHOD 09/30/2024 11:35 AM EDT [facility] Anion Gap 8 3 - 11 LAB CHEMISTRY METHOD 09/30/2024 11:35 AM EDT [facility] Glucose 69(L) 70 - 100 mg/dL LAB CHEMISTRY METHOD 09/30/2024 11:35 AM [facility] BUN 16 5 - 25 mg/dL LAB CHEMISTRY METHOD 09/30/2024 11:35 AM [facility] Creatinine 0.91 0.50 - 1.10 mg/dL LAB CHEMISTRY METHOD 09/30/2024 11:35 AM [facility] eGFR 70 >=60 mL/min/1. 73m2 LAB CHEMISTRY METHOD 09/30/2024 11:35 AM [facility] Comment:Calculation based on the Chronic Kidney Disease Epidemiology Collaboration (CKD-EPI) equation refit without adjustment for race. BUN/Creatinine Ratio 17.6 LAB CHEMISTRY METHOD 09/30/2024 11:35 AM [facility] Calcium 9.7 8.5 - 10.5 mg/dL LAB CHEMISTRY METHOD 09/30/2024 11:35 AM [facility] AST (SGOT) 10 10 - 42 unit/L LAB CHEMISTRY METHOD 09/30/2024 11:35 AM [facility] ALT (SGPT) 14 10 - 60 unit/L LAB CHEMISTRY METHOD 09/30/2024 11:35 AM [facility] Alkaline Phosphatase 65 42 - 121 unit/L LAB CHEMISTRY METHOD 09/30/2024 11:35 AM [facility] Total Protein 6.5 6.0 - 8.0 g/dL LAB CHEMISTRY METHOD 09/30/2024 11:35 AM [facility] Albumin 3.1(L) 3.2 - 5.0 g/dL LAB CHEMISTRY METHOD 09/30/2024 11:35 AM [facility] Total Bilirubin 0.4 0.0 - 1.4 mg/dL LAB CHEMISTRY METHOD 09/30/2024 11:35 AM [facility] Blood Venous blood specimen / Unknown Venipuncture / Unknown 09/30/2024 5:14 AM EDT 09/30/2024 10:11 AM EDT us Cheri Gallardo MD LAB BLOOD ORDERABLES Final Resul t [facility] [address] [place] [address], [place] [phone] * Complete blood count (09/30/2024 5:14 AM EDT) WBC 8.3 4.8 - 10.8 K/mcL LAB HEMETOLOGY METHOD 09/30/2024 10:37 AM EDT [facility] RBC 3.90 3.80 - 4.80 M/mcL LAB HEMETOLOGY METHOD 09/30/2024 10:37 AM EDT [facility] Hemoglobin 11.5 11.5 - 16.0 g/dL LAB HEMETOLOGY METHOD 09/30/2024 10:37 AM EDT [facility] Hematocrit 35.8 35.0 - 47.0 % LAB HEMETOLOGY METHOD 09/30/2024 10:37 AM EDT [facility] MCV 92.7 79.0 - 98.0 FL LAB HEMETOLOGY METHOD 09/30/2024 10:37 AM EDT [facility] MCH 29.8 27.0 - 32.0 pcg LAB HEMETOLOGY METHOD 09/30/2024 10:37 AM EDT [facility] MCHC 32.1 32.0 - 37.0 g/dL LAB HEMETOLOGY METHOD 09/30/2024 10:37 AM EDT [facility] RDW 12.7 11.0 - 15.0 % LAB HEMETOLOGY METHOD 09/30/2024 10:37 AM EDT [facility] Platelets 337 130 - 400 K/mcL LAB HEMETOLOGY METHOD 09/30/2024 10:37 AM EDT [facility] MPV 10.2 7.0 - 11.0 FL LAB HEMETOLOGY METHOD 09/30/2024 10:37 AM EDT [facility] NRBC 0.0 <1.0 % LAB HEMETOLOGY METHOD 09/30/2024 10:37 AM EDT [facility] NRBC Absolute 0.00 <0.10 K/mcL LAB HEMETOLOGY METHOD 09/30/2024 10:37 AM EDT [facility] Blood Venous blood specimen / Unknown Venipuncture / Unknown 09/30/2024 5:14 AM EDT 09/30/2024 10:11 AM EDT Cheri Gallardo MD LAB BLOOD ORDERABLES Final Resul t [facility] [address] [place] [address], documented in this encounter Visit Diagnoses Diagnosis Essential (primary) hypertension Unspecified essential hypertension Vitamin D deficiency, unspecified Gastro-esophageal reflux disease without esophagitis Heart failure, unspecified (CMS/HCC V24, CMS/HCC V28) Heart failure, unspecified documented in this encounter Care Teams Reel System Operator Relationship Specialty Start Date End Date Cheri Gallardo MD [address] [place] [address] [address] [place] [address] PCP - General Geriatric Medicine 09/30/24 documented as of this encounter
--- OUTSIDE RECORDS SUMMARY | 2025-01-07 12:24 | XMS_ITS | Encounter Summary ---
Author Organization [employer] Address [address] [facility] 7[place] [address] Care Team Providers Care First Cook Name Role Phone Anna Parnell MD Primary Care Provider [phone] Kate Cesar MD Primary Care Provider + Encounter Details Date Type Department Care Team (Late st Contact Info) Description 07/24/2023 Abstract [facility] PRIMARY/PEDS [address] [place] [address], [address] [address] Anna Parnell MD [address] [place] [address] Social History Tobacco Use Types Packs/Day Years [...] 11:30 AM EST Office Visit [facility] MED[facility]INE [address] [place] [address] Kate Cesar MD [address] [place] [address] 03/15/2025 10:30 AM EST Office Visit [facility] OPTOMETRY [address] [place] [address] Vicki Zapata, OD [address] [place] [address] documented as of this encounter Visit Diagnoses Not on filedocumented in this encounter Additional Health Concerns Assessment Noted Time PHQ-9 Depression Total Score: 6 09/11/19 23 12:43 PM EDT documented as of this encounter Care Teams First Cook Relationship Specialty Start Date End Date Anna Parnell MD [address] [place] [address] PCP - General Internal Medicine 06/10/23 10/31/23 Kate Cesar MD [address] [place] [address] PCP - General Internal Medicine 03/24/24 documented as of this encounter
--- OUTSIDE RECORDS SUMMARY | 2025-01-07 12:24 | XMS_ITS | Encounter Summary ---
Author Organization [employer] Address [address] [facility] 7[place] [address] Care Team Providers Care Supervisor Fiber Locking Name Role Phone Kate Cesar MD Primary Care Provider + Reason for Visit * Reason Onset Date Comments Durable Medical Equipment 12/18/2024 Encounter Details Date Type Department Care Team (Late st Contact Info) Description 12/18/2024 Telephone [facility] [address] [place] [address] Kate Cesar MD [address] [place] [address] Durable Medical Equipment Social History Tobacco Use [...] the past 12 months, has t he [employer], gas, oil or water company threatened to [...] Encounter - Kate Cesar MD - 01/05/2025 9:17 AM EDT Re TEDDY, yes, I will write a prescription, her sleep study was done on 05/2024, Im not sure that insurance will cover it again and if anything else, she'll have to FU with insurance re not finding herCPAP . * Telephone Encounter - Alberto Holman - 12/18/2024 10:43 AM EDT Tc from pt requesting a new CPAP machine due to her first one never being seen. [facility]. Once pt was discharged, CPAP was never found. Any questions contact pt at [phone] documented in this encounter Plan of Treatment Upcoming Encounters Date Type Department Care Team (Late st Contact Info) Description 02/12/2025 11:30 AM EST Office Visit [facility] [address] [place] [address] Kate Cesar MD [address] [place] [address] 03/15/2025 10:30 AM EST Office Visit [facility] OPTOMETRY [address] [place], [place] [phone] Vicki Zapata, OD [address] [place] [address] documented as of this encounter Visit Diagnoses Not on filedocumented in this encounter Additional Health Concerns Assessment Noted Time PHQ-9 Depression Total Score: 20 025 3:34 PM EDT documented as of this encounter Care Teams Supervisor Fiber Locking Relationship Specialty Start Date End Date Kate Cesar MD [address] [place] [address] PCP - General Internal Medicine 03/24/24 documented as of this encounter
--- OUTSIDE RECORDS SUMMARY | 2025-01-07 12:24 | XMS_ITS | Encounter Summary ---
Author Organization [employer] Address [address] [facility] 7[place] [address] Care Team Providers Care Traffic Operator Name Role Phone Kate Cesar MD Primary Care Provider + Reason for Visit * Reason Onset Date Comments FYI / ORDERS 09/23/2024 Encounter Details Date Type Department Care Team ([facility] st Contact Info) Description 09/23/2024 Telephone [facility] PRIMARY/PEDS [address] [place] [address], [address] [address] Anna Parnell MD [address] [place] [phone] FYI / ORDERS Social History Tobacco Use [...] with others, in a hotel, in a long-term, living outside on the street, on a [...] no longer under our care, seen at [facility], call placed to Tamar and made aware, sending to med records to melissa as transferred. * Telephone Encounter - Edel Beck - 09/23/2024 3:00 PM EDT Tamar from [facility] calling to let Dr. Parnell know she will be resending orders to Provider soon Orders include Plan of care and Frequency evaluation Tamar's best call back #: [phone] documented in this encounter Plan of Treatment Upcoming Encounters Date Type Department Care Team (Late st Contact Info) Description 02/12/2025 11:30 AM EST Office Visit [facility] MEDICINE [address] [place] [address] Kate Cesar MD [address] [place] [address] 03/15/2025 10:30 AM EST Office Visit [facility] OPTOMETRY [address] [place], [place] [phone] Vicki Zapata, OD [address] [place] [address] documented as of this encounter Visit Diagnoses Not on filedocumented in this encounter Additional Health Concerns Assessment Noted Time PHQ-9 Depression Total Score: 17 025 1:02 PM EST documented as of this encounter Care Teams Traffic Operator Relationship Specialty Start Date End Date Kate Cesar MD [address] [place] [address] PCP - General Internal Medicine 03/24/24 documented as of this encounter
--- OUTSIDE RECORDS SUMMARY | 2025-01-07 12:24 | XMS_ITS | Encounter Summary ---
Author Organization [employer] Address [address] [facility] 7[place] [address] Care Team Providers Care Electrical Instrument Maker Name Role Phone Kate Cesar MD Primary Care Provider + Encounter Details Date Type Department Care Team (Late st Contact Info) Description 09/23/2024 Telephone HF [facility] PRIMARY/PEDS [address] [facility] [place] [address] Kate Cesar MD [address] [place] [address] Social History Tobacco Use Types Packs/Day Years [...] with others, in a hotel, in a detention, living outside on the street, on a [...] 02/12/2025 11:30 AM EST Office Visit [facility] MEDICINE [address] [place] [address] Kate Cesar MD [address] [place] [address] 03/15/2025 10:30 AM EST Office Visit [facility] OPTOMETRY [address] [place] [address] Vicki Zapata, OD [address] [place] [address] documented as of this encounter Visit Diagnoses Not on filedocumented in this encounter Additional Health Concerns Assessment Noted Time PHQ-9 Depression Total Score: 17 025 1:02 PM EST documented as of this encounter Care Teams Electrical Instrument Maker Relationship Specialty Start Date End Date Kate Cesar MD [address] [place] [address] PCP - General Internal Medicine 03/24/24 documented as of this encounter
--- OUTSIDE RECORDS SUMMARY | 2025-01-07 12:24 | XMS_ITS | Clinical Summary ---
Author Organization [address] Address [address] [place] [address] Phone Care Team Providers Care Program Manufacturing Leader Name Role Phone Cheri Gallardo MD Primary Care Provider [phone] Social History Tobacco Use Types Packs/Day Years [...] Years (1 of 2 - PCV) 1977 RSV Immunization Adult Patients (1 - Risk 50-74 years 1-dose series) 2008 Zoster Vaccines (1 of 2) 2008 Breast Cancer Screening 09/16/2023 09/15/2021 Depression Screening 03/11/2024 Cholesterol Screening (Lipid Panel) 10/01/2024 Falls Risk Assessment 10/01/2024 Hepatitis C Screening 10/01/2024 Osteoporosis Screening (Bone Density Screening) 10/01/2024 Social Influencers of Health Screening 10/01/2024 COVID-19 Vaccine (2 - 2024- season) 2024 09/08/2021 Influenza Vaccine (#1) 2024 [...] Associated Diagnosis Comments COMPREHENSIVE METABOLIC PANEL Routine 09/30/2024 5:14 AM EDT Essential (primary) hypertension Vitamin D deficiency, unspecified Gastro-esophageal reflux disease without esophagitis Heart failure, unspecified ([facility] V24, [facility] V28) from Last 3 Months or Most Recently Relevant to Health Maintenance Results * (ABNORMAL) Comprehensive metabolic panel (09/30/2024 5:14 AM EDT) Sodium 141 133 - 145 mmol/L LAB CHEMISTRY METHOD 09/30/2024 11:35 AM [facility] Potassium 4.0 3.5 - 5.5 mmol/L LAB CHEMISTRY METHOD 09/30/2024 11:35 AM [facility] Chloride 106 96 - 110 mmol/L LAB CHEMISTRY METHOD 09/30/2024 11:35 AM [facility] CO2 27 21 - 32 mmol/L LAB CHEMISTRY METHOD 09/30/2024 11:35 AM [facility] Anion Gap 8 3 - 11 LAB CHEMISTRY METHOD 09/30/2024 11:35 AM [facility] Glucose 69(L) 70 - 100 mg/dL LAB CHEMISTRY METHOD 09/30/2024 11:35 AM [facility] BUN 16 5 - 25 mg/dL LAB CHEMISTRY METHOD 09/30/2024 11:35 AM [facility] Creatinine 0.91 0.50 - 1.10 mg/dL LAB CHEMISTRY METHOD 09/30/2024 11:35 AM [facility] eGFR 70 >=60 mL/min/1. 73m2 LAB CHEMISTRY METHOD 09/30/2024 11:35 AM [facility] Comment:Calculation based on the Chronic Kidney Disease Epidemiology Collaboration (CKD-EPI) equation refit without adjustment for race. BUN/Creatinine Ratio 17.6 LAB CHEMISTRY METHOD 09/30/2024 11:35 AM [facility] Calcium 9.7 8.5 - 10.5 mg/dL LAB CHEMISTRY METHOD 09/30/2024 11:35 AM [facility] AST (SGOT) 10 10 - 42 unit/L LAB CHEMISTRY METHOD 09/30/2024 11:35 AM [facility] ALT (SGPT) 14 10 - 60 unit/L LAB CHEMISTRY METHOD 09/30/2024 11:35 AM [facility] Alkaline Phosphatase 65 42 - 121 unit/L LAB CHEMISTRY METHOD 09/30/2024 11:35 AM [facility] Total Protein 6.5 6.0 - 8.0 g/dL LAB CHEMISTRY METHOD 09/30/2024 11:35 AM [facility] Albumin 3.1(L) 3.2 - 5.0 g/dL LAB CHEMISTRY METHOD 09/30/2024 11:35 AM [facility] Total Bilirubin 0.4 0.0 - 1.4 mg/dL LAB CHEMISTRY METHOD 09/30/2024 11:35 AM [facility] Blood Venous blood specimen / Unknown Venipuncture / Unknown 09/30/2024 5:14 AM EDT 09/30/2024 10:11 AM EDT Cheri Gallardo MD LAB BLOOD ORDERABLES Final Resul t [facility] LAB [address] [place] [address], from Last 3 Months or Most Recently Relevant to Health Maintenance Insurance MEDICAID - [place] Care Teams Program Manufacturing Leader Relationship Specialty Start Date End Date Cheri Gallardo MD [address] [place] [address] [address] [place] [address] PCP - General Geriatric Medicine 09/30/24
--- OUTSIDE RECORDS SUMMARY | 2025-01-07 12:24 | XMS_ITS | Clinical Summary ---
Author Organization [employer] Address [address] [facility] [address], [place] [address] Care Team Providers Care Delivery Motorcycle Driver Name Role Phone Kate Cesar MD Primary [...] per day. 90 tablet 3 01/10/20 24 Active verapamil SR (Calan SR) 240 MG [...] DAILY 16 g 2 10/28/19 25 Active cholecalciferol (Vitamin D-3) 25 MCG (1000 UT) capsuleIndication s:Vitamin D deficiency Take 1 capsule (25 mcg) by mouth Once per day. 90 capsule 11/28/19 25 2025 Active DULoxetine (Cymbalta) [address] capsule TAKE 1 CAPSULE BY MOUTH EVERY DAY , DO NOT BREAK, CRUSH, DISSOLVE OR CHEW 30 capsule 2 12/24/19 Active DULoxetine (Cymbalta) [address] capsule Take 1 capsule (30 mg) by mouth Once per day. Do not crush or chew. 60 capsule 10/29/19 25 2024 Discontinued nitrofurantoin, macrocrystal-mono hydrate, (Macrobid) 100 MG capsuleIndication s:Acute cystitis without hematuria Take 1 capsule (100 mg) by mouth 2 times daily for 5 days. 10 capsule 12/05/19 25 2024 Active Problems Problem Noted Date Diagnosed Date Housing insecurity 12/11/2024 Cerebrovascular accident (CVA) ([facility]) 025 Assessment & Plan (11/24/2024 10:08 AM EDT): Hx of , now with housing challenges, needs increase in AUTOMATIC TELLER MACHINE SERVICER support and hours Impaired balance as late [...] diet and exercise done today referral to jetting machine operator done Assessment & Plan (03/24/2024 2:39 PM [...] Morbid obesity with BMI of 50.0-59.9, adult ([facility]) 07/09/2023 Cerebrovascular accident (CV A) due to embolism of left middle cerebral artery 07/09/2023 Allergic rhinitis, unspecified 09/19/2022 Hemiplegia and hemiparesis f 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 Needs evaluation from PT for fall prevention and home DME. Continue Plavix and Atorvastatin. FU Lipids in 6 months. Will refer to Neurology. Patient or AUTOMATIC TELLER MACHINE SERVICER will call [facility] [...] goal at 70, check lipids. Ischemic stroke ([facility]) 04/16/2022 Pulmonary hypertension, unspecified ([facility]) TIA (transient ischemic attack) 04/16/2022 Overview (07/19/2023): 07/09/23 acute R sided weakness, admitted to hospital Gastroesophageal reflux disease 02/16/2022 Chronic diastolic (congestive) heart failure 11/2021 Essential hypertension 02/09/2022 Assessment & Plan (03/24/2024 2:37 PM EST): Uncontrolled. Pt will check BP at home and FU with me in 4 weeks. Order labs and continue same medications. Lacunar infarct, acute ([facility]) 02/09/2022 Moderate persistent asthma without [...] will refer to counselor for further evaluation. Severe episode of recurrent major depressive disorder, without psychotic features (CMS/HCC) 02/09/2022 Assessment & Plan (12/15/2024 2:40 PM EDT): >>ASSESSMENT AND PLAN FOR SEVERE DEPRESSION (CMS/HCC) (HCC) WRITTEN ON 12/11/2024 10:12 AM BY JAYDE CRAWFORD >>ASSESSMENT AND PLAN FOR RECURRENT MAJOR DEPRESSIVE DISORDER, IN PARTIAL REMISSION (CMS/HCC) WRITTEN ON 03/24/2024 2:39 PM BY SHERMAN VALENTINO See above at anxiety. Resolved Problems Problem Noted Date Diagnosed Date [...] obesity (CMS/HCC) 02/09/2022 Other chronic pain 02/09/2022 3 Primary osteoarthritis of both knees 02/09/2022 01/08/2023 Sleep dysfunction with arousal disturbance 02/09/2022 02/16/2022 Encounters * This document contains information received from the source organization and may not represent a complete record from that organization. Date Type Department Care Team Description 12/23/2024 Refill [facility] [address] [place] [address] Evette Stiles NP 12/22/2024 Telephone [facility] [address], [place] [phone] Kate Cesar MD Durable Medical Equipment 12/18/2024 Telephone [facility] [address] [place] [address] Kate Cesar MD Durable Medical Equipment 12/11/2024 Patient Outreach [facility] [address], [place] [phone] Kate Cesar MD Care Coordination (CHW outreach for [facility] housing search-referral completed ) 12/04/2024 Orders Only [address] [address] Liz Capone ANP Acute cystitis without hematuria (Primary Dx) 12/03/2024 Results Follow-Up [address] [address] Liz Capone ANP Lipid Panel, Standard, Hemoglobin A1c, Comprehensive Metabolic Panel, Additional followed-up results: 3 12/03/[address] [address] Kate Cesar MD telephone call; Durable Medical Equipment (DME: Multiple Items) 12/03/[address] [address] Kate Cesar MD telephone call 12/01/[address] [address] Kate Cesar MD appt change 11/27/2024 2:30 PM EDT Office Visit [address] [address] Liz Capone ANP Malodorous urine (Primary Dx); [...] Screening for tuberculosis 11/27/2024 Travel 11/26/[address] [address] Liz Capone ANP chart prep 10/28/2024 9:45 AM EDT Office Visit [address] [address] Evette Stiles NP Cerebrovascular accident (CVA), unspecified mechanism (CMS/HCC) (Primary Dx); 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 10/28/2024 Telephone [facility] [address], [place] [phone] Kate Cesar MD Durable Medical Equipment 10/28/2024 Travel 10/27/2024 Telephone [facility] [address], [place] [phone] Evette Stiles, KARINA Chart Prep 10/24/2024 Refill [facility] [address], [place] [phone] Kate Cesar MD 10/16/2024 Patient Outreach [facility] [address], [place] [phone] Kate Cesar MD Transition Of Care (Tcm) (HDF - Scheduled ) from Last 3 Months Immunizations Immunization Administration [...] with others, in a hotel, in a assisted, living outside on the street, on a [...] the past 12 months, has t he [employer], gas, oil or water company threatened to [...] Description 02/12/2025 11:30 AM EST Office Visit [facility] [address] [place] [address] Kate Cesar MD [address] [place] [address] 03/15/2025 10:30 AM EST Office Visit [facility] [address] [place], [place] [phone] Vicki Zapata, OD [address] [place] [address] Health Maintenance Due Date Last Done Comments [...] 10/2021, 09/15/2021, Additional history exists COVID-19 Vaccine (3 - 2024- season) 2024 09/08/2021, 09/08/2021 Influenza Vaccine (#1) [...] Results * T-SPOT??.TB (12/03/2024 11:29 AM EDT) Pathologist [facility] T Spot TB Negative Negative [facility] Comment:A negative test resu lt does [...] as aquantitative test. TS PANEL A 0 [facility] TS PANEL B 0 [facility] Negative Control Passed [facility] Positive Control Passed [facility] Comment:For additional infor matjoelle, please refer [email or web address]/faq/BGT948(This link is being provided for informational/educational purposes only.)THIS TEST WAS PERFORMED AT:[employer]/[id number] [place] [id number] AMIN MD,PHD 12/03/2024 11:2 9 AM EDT 12/03/2024 1:06 PM EDT Liz Capone ANP LAB BLOOD ORDERABLES Final Resul t Performing Organization Address [facility] Co de Phone Number [facility] [address] [place] [phone] * Hepatitis C Antibody with Reflex to HCV, RNA, Quantitative, Real-Time PCR (12/03/2024 11:29 AM EDT) Hepatitis C Antibody Nonreactive Nonreactive [facility] Comment:Antibodies to HCV no t detected; does not exclude early acuteHCV infection. Blood Venous blood specimen / Unknown 12/03/2024 11:29 AM EDT 12/03/2024 1:06 PM EDT Liz Capone [facility] LAB BLOOD ORDERABLES Final Resul t Performing Organization Address [facility] de Phone Number [facility] [address] [place] [phone] * Hemoglobin A1c (12/03/2024 11:29 AM EDT) Hemoglobin A1c 5.5 <6.0 % [facility] Comment:Hemoglobin A1C Refer ence Range Adults: 4.8 - 6.0 % Non diabetic: < 6.0 % Goal: < 7.0 %Additional Action Suggested: > 8.0 %Note: Hemoglobin A1c results are invalid for patients with abnormal amounts of HbF. Blood transfusions may impact the HbA1c concentration in the patient sample. Estimated Average Glucose 111 mg/dL [facility] Comment:eAG = Estimated ave rage glucose which is %A1C expressed asaverage glucose, using the formula of the [id number]-[id number] Glucose study (ADAG), Diabetes Care, Vol.31,#8,Oct. 2007 Blood Venous blood specimen / Unknown 12/03/2024 11:29 AM EDT 12/03/2024 1:06 PM EDT Liz Capone ANP LAB BLOOD ORDERABLES Final Resul t Performing Organization Address [facility] Co de Phone Number [facility] [address] [place] [phone] * (ABNORMAL) Lipid Panel, Standard (12/03/2024 11:29 AM EDT) Triglycerides 118 <150 mg/dL [facility] Comment:Slight Lipemia.Nigel able Triglyceride: less than 150 mg/dLBorderline High Triglyceride 150-199 mg/dLHigh Triglyceride: 200-499 mg/dLVery High Triglyceride: greater than or equal to 5OO mg/dL Cholesterol 175 <200 mg/dL [facility] Comment:Desirable Cholestero l: less than 200 mg/dLBorderline High Cholesterol: 200-239 mg/dLHigh Cholesterol: greater than 239 mg/dL LDL Cholesterol Calculated 111(H) <100 mg/dL [facility] Comment:Desirable LDL: less than 100 mg/dLNear Optimal/Above Optimal LDL: 110- 129 mg/dLBorderline High LDL: 130-159 mg/dLHigh LDL: 160-189 mg/dLVery High LDL: greater than or equal to 190 mg/dL HDL Cholesterol 41 >40 mg/dL [facility] Comment:Desirable HDL: great er than 40 mg/dL Note: This HDL assay may give artificially low results in patients with liver disease. Blood Venous blood specimen / Unknown 12/03/2024 11:29 AM EDT 12/03/2024 1:06 PM EDT Liz Capone [facility] LAB BLOOD ORDERABLES Final Resul t [facility] [address] [place] [phone] * (ABNORMAL) Comprehensive Metabolic Panel (12/03/2024 11:29 AM EDT) Sodium 138 135 - 145 mmol/L [facility] Potassium 4.4 3.3 - 5.1 mmol/L [facility] Chloride 103 96 - 108 mmol/L [facility] Carbon Dioxide 26 22 - 29 mmol/L [facility] Anion Gap 13 12 - 20 [facility] Urea Nitrogen (BUN) 39(H) 9 - 16 mg/dL [facility] Creatinine, Serum 1.18 0.5 - 1.4 mg/dL [facility] Estimated Glomerular Filt Rate 46 [facility] Comment:Chronic Kidney Disea se: Estimated GFR < 60 mL/min/1.17g5Lintvs Kidney Disease: Estimated GFR < 15 mL/min/1.73m2 Glucose 112 60 - 115 mg/dL [facility] Calcium 9.9 8.4 - 10.2 mg/dL [facility] Bilirubin, Total 0.3 0.0 - 1.0 mg/dL [facility] Aspartate Amino Transferase 25 5 - 31 U/L [facility] Alanine Aminotransferase 9 0 - 31 U/L [facility] Total Protein 8.1(H) 6.5 - 8.0 g/dL [facility] Albumin Level 4.2 3.5 - 5.0 g/dL [facility] Alkaline Phosphatase 67 39 - 117 U/L [facility] Blood Venous blood specimen / Unknown 12/03/2024 11:29 AM EDT 12/03/2024 1:06 PM EDT us Liz DREW LAB BLOOD ORDERABLES Final Resul t [facility] [address] [place] [phone] * Albumin, Random Urine W/Creatinine (12/01/2024 4:25 PM EDT) Creatinine, Urine 21.94 mg/dL [facility] Microalbumin Urine <5.0 mg/L [facility] Microalbum Creatinine Ratio Ur TNP <30 ug/mg cr [facility] Comment:Unable to calculate albumin/creatinine ratio due to lowmicroalbumin or creatinine result. Urine (Urine, Random) 12/01/2024 4:25 PM EDT 12/01/2024 6:39 PM EDT us Liz Capone ANP LAB URINE ORDERABLES Final Resul t Performing Organization Address City/[facility]/ZIP Co de Phone Number [facility] [address] [place] [phone] * Culture, Urine, Routine (12/01/2024 4:25 PM EDT) Urine Urine specimen obtained by clean catch procedure / Unknown 12/01/2024 4:25 PM EDT 12/01/2024 6:39 PM EDT Comment:UACC Narrative [facility] - 12/04/2024 8:04 AM EDT Escherichia coli Quant > 100,000 cfu/mL Escherichia coli: Ampicillin >=32(R) Escherichia coli: Cefazolin (Urine) 4(S) Escherichia coli: Cefepime <=0.12(S) Escherichia coli: Ceftriaxone <=0.25(S) Escherichia coli: Ciprofloxacin <=0.06(S) Escherichia coli: Gentamicin <=1(S) Escherichia coli: Nitrofurantoin <=16(S) Escherichia coli: Trimethoprim/Sulfamethoxazole <=20(S) Specimen Source: Urine clean catch [facility] LAB MICROBIOLOGY - GENERAL ORDER REMINGTON Final Result Performing Organization Address [facility] Co de Phone Number [facility] [address] [place] [phone] * Referral to Ophthalmology (11/03/2024) Vicki Zapata OD OUTPATIENT REFERRAL ORDERABLES Final Result * MAMMO BREAST JOSE JUAN ADDTL VIEW RIGHT (09/15/2021 2:26 PM EDT) Anatomical Region Laterality Modality Breast Bilateral Mammography 09/15/2021 2:26 PM EDT Narrative 09/16/2021 8:32 AM EDT Refer to Laci for result details Legacy [...] LAB SYSTEM LAB AP CASE REPORT Group [facility] Additional Information positive results occur. Results are most reliable when an adequate sample [facility] LAB AP CASE REPORT First Screen: Arlet Roman [facility] SH LAB AP VAN HELPER SPECIMEN ADEQUACY Satisfactory for evaluation, endocervical/trans formation zone component present [facility] Other Findings PLEASE REFER TO THE SEPARATE REPORT FOR THE HPV RESULT [facility] Additional Information is evaluated on a regular repetitive basis and clinically correlated. [facility] LAB AP CASE REPORT Pathologist: Amos Umanzor MD [facility] Additional Information Suspicious signs or symptoms may warrant follow-up studies regardless of [facility] Additional Information Pap test findings. [facility] LAB AP CASE REPORT Specimen: Liquid-Based Pap, Screening, Vagina, Cloudy [facility] Additional Information [facility] Additional Information CPT 06155 [facility] LAB AP CASE REPORT Gynecologic Cytology Case: [id number] [facility] LAB AP CASE REPORT Authorizing Provider: Agata Reza MD Collected: 11/04/2018 2213 [facility] LAB AP CASE REPORT Ordering Location: [facility] Received: 11/04/2018 2213 [facility] Clinical Information Z01.419 Encounter for gynecological examination without abnormal finding [facility] Clinical Information [facility] 11/04/2018 10:1 3 PM EDT us Agata Reza MD LAB CYTOLOGY ORDERABLES Final Result Performing Organization Address [facility] de Phone Number [facility] [address] * HPV DNA XXX Ql Amp [...] OR DERABLES Final Result Performing Organization Address [facility] de Phone Number [facility] [address] from Last 3 Months or Most Recently Relevant to Health Maintenance Insurance [facility] STANDARD [facility] [employer] OPTIONS (O D-SNP) Advance Directives Documents on File Type Date Recorded Patient Cartographic Aide Expl anation Advance Directives and Living Will 11/02/2024 1:56 PM Health Care Proxy Care Teams Delivery Motorcycle Driver Relationship Specialty Start Date End Date Kate Cesar MD [address] [place] [phone] PCP - General Internal Medicine 03/24/24
--- NOTE | 2025-01-07 13:45 | PC.NURSE ---
CT and MRI negative for any acute findings Patient still experiencing left foot pain Notified provider Provider used doppler on left foot + pulse Provider ordered xray of left foot Awaiting xrays at this time
[2025-01-07 15:34] LABS: COVID-19 Test Negative (Negative); IDNOW Serial# 6674DD1D
--- NOTE | 2025-01-07 15:34 | MHC.CM.ED ---
Received case management consult from Dr Cotton. Patient came to the ER due to CVA symptoms. Work up negative. Physical therapy eval completed. Short term rehab is recommended. Met with patient and friend Hanna. Patient is declining STR at this time. PCP verified. Patient agreeable to [facility]. Referral made for SN and PT. Ezequiel SANDOVAL booked for 530pm. with chart. Patient, Jeffry Ferreira RN and Dr Cotton aware. Continue to monitor for d/c needs.
[2025-01-08 09:36] LABS: Glucose, Whole Blood 91 mg/dL (60-115)
== END 2025-01-07 18:43 | disposition home or self-care (01) ==
PROVIDERS: Emergency Provider Emergency Medicine; PCP Internal Medicine
DX: R53.1 Weakness (principal); M77.31 Calcaneal spur, right foot; E66.01 Morbid (severe) obesity due to excess calories; Z68.43 Body mass index [BMI] 50.0-59.9, adult; I69.351 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 right dominant side; I11.0 Hypertensive heart disease with heart failure; I50.32 Chronic diastolic (congestive) heart failure; Z87.440 Personal history of urinary (tract) infections; Z79.899 Other long term (current) drug therapy
CPT/HCPCS: 36415; 70450; 70496; 70498; 70551; 71045; 73630; 80053; 82947; 84484; 85025; 85610; 87635; 93005; 97162; 99285; 99291

== ENCOUNTER → 2025-01-07 09:23 | Outpatient (BNV) | payer OTHER, SELFPAY | PROVIDERS: Emergency Provider Emergency Medicine; Visit Provider Radiology Diagnostic Radiology | DX: I65.22 Occlusion and stenosis of left carotid artery (principal); R53.1 Weakness; H74.8X3 Other specified disorders of middle ear and mastoid, bilateral; R07.9 Chest pain, unspecified; M77.31 Calcaneal spur, right foot | CPT/HCPCS: 70450; 70496; 70498; 70551; 71045; 73630 ==

== ENCOUNTER → 2025-01-07 09:24 | Outpatient (BNV) | payer OTHER, SELFPAY | PROVIDERS: Emergency Provider Emergency Medicine; PCP Internal Medicine; Visit Provider Internal Medicine | DX: I63.9 Cerebral infarction, unspecified (principal) | CPT/HCPCS: 93010 ==

== ENCOUNTER → 2025-01-12 13:00 | Outpatient (BNV) | payer OTHER, SELFPAY | PROVIDERS: PCP Nurse Practitioner Primary Care; Visit Provider Psychiatry & Neurology Neurology | DX: R53.1 Weakness (principal) | CPT/HCPCS: 99222 ==

== ENCOUNTER 2025-02-01 12:24 | Outpatient (AMB) | payer OTHER, SELFPAY ==
[2025-02-01 12:38] VITALS: BMI 55.3
--- NOTE | 2025-02-01 12:38 | MHC.OFFVIS ---
Vital Signs 02/01/25 12:38 Height 4 ft 11 in Weight 274 lb BMI 55.3 Intake Visit Reasons: Calcaneal spur of Lt foot Intake Note: Alysa is a 64 year old female who presents today as a new patient for an evaluation of her calcaneal spur of her right foot. Patient states she experiences pain that runs through the whole foot. She has not had any treatment for her calcaneal spur and she mentions this has been an ongoing issue for about 4 months. Patient denies having pain in her left foot Equipment Cleaner And Tester Required: Yes Equipment Cleaner And Tester Services: Equipment Cleaner And Tester Present Equipment Cleaner And Tester Name: [id number] Allergies aspirin (Aspirin) Allergy (Mild, Verified 02/01/25 12:57) SWELLING, facial swelling, redness Sulfa (Sulfonamide Antibiotics) (Sulfa (Sulfonamides)) Allergy (Mild, Verified 02/01/25 12:57) SWELLING, facial swelling, redness shrimp Allergy (Verified 02/01/25 12:57) Unknown HPI Comments Details: The patient is a 64-year-old female with a PMH as seen below presenting with right foot pain primarily to the heel. The right foot pain has persisted for four months, with no specific injury reported as the inciting event. The pain is exacerbated by pressure and is present both on the dorsal and plantar aspect of the foot, as well as around the heel. The patient describes a sensation of a ball inside the foot in the area of the arch. She denies any other pedal concerns. [facility] Medical History (Updated 02/04/25 @ 19:33 by Irais Hubbard DPM) Fracture of right foot with malunion Arthritis of right foot Other enthesopathy of right foot and ankle Calcaneal spur of right foot Plantar fasciitis of right foot Hyperkeratosis Bilateral hearing loss Dry eyes, bilateral Superficial thrombosis of right lower extremity Gastritis History of endometrial cancer Personal history of stroke with residual effects Other lack of coordination Muscle wasting and atrophy, not elsewhere classified, multiple sites Peripheral vascular disease, unspecified Primary generalized (osteo)arthritis Migraine, unspecified, not intractable, without status migrainosus Cerebrovascular accident (CVA) due to embolism of left middle cerebral artery Morbid obesity with BMI of 50.0-59.9, adult 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 right dominant side Allergic rhinitis TIA (transient ischemic attack) Pulmonary hypertension Ischemic stroke Chronic diastolic (congestive) heart failure GERD (gastroesophageal reflux disease) Anxiety associated with depression Unstable gait 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 TEDDY (obstructive sleep apnea) Moderate persistent asthma without complication Lacunar infarct, acute Mood disorder Mixed hyperlipidemia Essential hypertension UTI (urinary tract infection) CVA (cerebral vascular accident) Family History Mother Hypertension Father Hypertension Heart disease Sister Breast cancer Brother Diabetes Heart attack Social History Household Members: Family Housing: Assisted Living Facility Do you presently have visiting nurse or other home services: No Alcohol intake: never Patient Tobacco Use Status: Never used Tobacco Second Hand Smoke Exposure: No Advance Directives Date on File: 09/17/24 service: No Current occupational status: disabled Review of Systems Const Details: - Musculoskeletal: Reports pain in the heel, dorsal, and plantar aspects of the right foot. Reports sensation of a ball inside the arch of the right foot. All systems reviewed & are unremarkable except as noted in HPI and below Physical Exam Vital Signs: BMI result Body Mass Index 55.3 Extrem Other: RLE Focused Physical Exam: Derm: No open lesions, abrasions, or wounds noted. No ecchymosis, erythema, or discoloration noted. No clinical signs of infection noted. No hyperkeratotic or macerated areas noted. Vasc: DP/PT pulses palpable. CFT < 3 secs. Temp gradient warm to warm. Pedal hair absent. No varicosities noted. Neuro: Protective sensations grossly intact. MSK: Pain on palpation to the heel, worse to the medial calcaneal tubercle. Pain on palpation to the medial arch. Negative windlass mechanism. Pain on palpation to the dorsal aspect of the foot. ROM of the forefoot, hindfoot, and ankle WNL. No crepitus or fluctuance noted. Antalgic gait noted unassisted. Pes planus foot type. Results Reviewed Results Reviewed: Podiatry Read of right foot xray (01/07/25): Malunion of spiral 5th met fracture. Hammertoe deformities noted to 2-5. 1st MPJ arthritic changes noted. Plantar calcaneal spur noted. Pes planus noted. Osteophytic changes noted to the midfoot. Right foot xray (01/07/25): FINDINGS: There is old healed oblique fracture distal fifth metatarsal. There is no visible acute fracture or dislocation. The ankle mortise and subtalar joints are normal. Large calcaneal heel spur and dorsal intertarsal spurring. The soft tissues are normal. IMPRESSION: Large calcaneal heel spur and dorsal intertarsal spurring. No visible acute fracture, dislocation or subluxation seen. Assessment & Plan Assessment & Plan (1) Right foot pain: Code(s): M79.671 - Pain in right foot Category: Medical (2) Plantar fasciitis of right foot: Code(s): M72.2 - Plantar fascial fibromatosis Category: Medical (3) Calcaneal spur of right foot: Code(s): M77.31 - Calcaneal spur, right foot Category: Medical (4) Other enthesopathy of right foot and ankle: Code(s): M77.51 - Other enthesopathy of right foot and ankle Category: Medical (5) Arthritis of right foot: Code(s): M19.071 - Primary osteoarthritis, right ankle and foot Category: Medical (6) Fracture of right foot with malunion: Code(s): S92.901P - Unspecified fracture of right foot, subsequent encounter for fracture with malunion Category: Medical Qualifiers: Fracture type: closed Qualified Code(s): S92.901P - Unspecified fracture of right foot, subsequent encounter for fracture with malunion Plan Patient was informed and verbally consented to the use of an ambient scribe for clinic note documentation during this visit. I discussed with the patient that the pain is primarily due to plantar fasciitis and associated bone spur, arthritis, and malunion of a fracture. We reviewed the treatment plan, including the use of Medrol Dosepak, orthopedic shoes, and physical therapy. I explained that surgery might be considered if conservative measures fail. Follow-up is scheduled in three weeks to evaluate progress. - Prescribed Medrol Dosepak to reduce swelling and pain in the foot. - Recommend OTC orthopedic shoes and inserts for arch support. - Initiate at home stretching exercises for plantar fasciitis. Instructional form provided. - Avoid barefoot walking and wear supportive shoe gear. RTC in 3 weeks. Medications: New methylprednisolone (Medrol (Shawn)) PO PER PKG DIR 21 ea 0RF M19.071 - Primary osteoarthritis, right ankle and foot, M72.2 - Plantar fascial fibromatosis, M77.31 - Calcaneal spur, right foot, M77.51 - Other enthesopathy of right foot and ankle, M79.671 - Pain in right foot, S92.901P - Unspecified fracture of right foot, subsequent encounter for fracture with malunion Coding Level of Care Code New Pt Level 4 (58154) Diagnoses Right foot pain M79.671 Plantar fasciitis of right foot M72.2 Calcaneal spur of right foot M77.31 Other enthesopathy of right foot and ankle M77.51 Arthritis of right foot M19.071 Closed fracture of right foot with malunion, subsequent encounter S92.901P Fracture type: closed Time Spent (min) 46
== END 2025-02-01 13:04 | disposition home or self-care (01) ==
LOC: HO.HPODS 12:25
PROVIDERS: PCP Internal Medicine; Visit Provider Student in an Organized Health Care Education/Training Program
DX: M79.671 Pain in right foot (principal); M72.2 Plantar fascial fibromatosis; M77.31 Calcaneal spur, right foot; M77.51 Other enthesopathy of right foot and ankle; M19.071 Primary osteoarthritis, right ankle and foot; S92.901P Unspecified fracture of right foot, subsequent encounter for fracture with malunion
CPT/HCPCS: 99204

== ENCOUNTER → 2025-02-01 12:24 | Outpatient (BNVA) | payer OTHER, SELFPAY | PROVIDERS: PCP Internal Medicine; Visit Provider Student in an Organized Health Care Education/Training Program | DX: S92.901P Unspecified fracture of right foot, subsequent encounter for fracture with malunion (principal); M19.071 Primary osteoarthritis, right ankle and foot; M77.51 Other enthesopathy of right foot and ankle; M72.2 Plantar fascial fibromatosis; X58.XXXD Exposure to other specified factors, subsequent encounter | CPT/HCPCS: 99202 ==

== ENCOUNTER 2025-02-17 13:01 | Outpatient (REF) | payer OTHER, SELFPAY ==
--- NOTE | 2025-02-17 | EMG_ITS ---
Chief complaint: Lumbar back pain Referred by:?Kate Cesar MD Procedure done: Right lower extremity NCS/EMG Right tibial and peroneal motor studies were performed. Tibial and peroneal F responses were obtained and tibial H-reflex was obtained. Right superficial peroneal and sural sensory studies and median and lateral mixed plantars sensory studies were obtained and paraspinal muscles were tested with a needle. Findings: Median and lateral mixed plantars sensory studies did not produce any response. Superficial peroneal and sural sensory studies were with a normal limits. Motor distal latencies were normal with normal looking amplitude and borderline conduction velocity. 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 [place] [id number] 1 extremity MTDD
== END 2025-02-17 13:02 | disposition home or self-care (01) ==
LOC: HO.NEURO 13:01
PROVIDERS: PCP Internal Medicine; Visit Provider Internal Medicine
DX: M54.16 Radiculopathy, lumbar region (principal)
CPT/HCPCS: 95886; 95910

== ENCOUNTER → 2025-02-17 13:05 | Outpatient (BNV) | payer OTHER, SELFPAY | PROVIDERS: PCP Internal Medicine; Visit Provider Psychiatry & Neurology Neurology | DX: G57.51 Tarsal tunnel syndrome, right lower limb (principal) | CPT/HCPCS: 95886; 95909 ==

== ENCOUNTER 2025-02-24 11:33 | Outpatient (AMB) | payer OTHER, SELFPAY ==
--- NOTE | 2025-02-24 11:38 | MHC.OFFVIS ---
Vital Signs 02/24/25 11:39 Height 4 ft 11 in Weight 274 lb BMI 55.3 Intake Visit Reasons: right plantar fasciitis, arthritis, and malunion Intake Note: Alysa is a 64 year old female who presents to the office today for a follow up right plantar fasciitis, arthritis, and malunion. At last visit patient was Prescribed a Medrol Dosepak and instructed to start at home stretching exercises for plantar fasciitis. Pt states the medication and the stretching exercises had not helped much alleviate her pain symptoms. Die Sinking Machine Operator Required: Yes Die Sinking Machine Operator Services: Die Sinking Machine Operator Present Die Sinking Machine Operator Name: [id number] Allergies aspirin (Aspirin) Allergy (Mild, Verified 03/03/25 00:41) SWELLING, facial swelling, redness Sulfa (Sulfonamide Antibiotics) (Sulfa (Sulfonamides)) Allergy (Mild, Verified 03/03/25 00:41) SWELLING, facial swelling, redness shrimp Allergy (Verified 03/03/25 00:41) Unknown HPI Comments Details: The patient is a 64-year-old female presenting for management of persistent right foot pain associated with arthritis, plantar fasciitis, and a malunion. Patient was accompanied by family member who assisted in providing her history. She reports ongoing pain in the bottom of her foot. The patient has not been performing her stretching exercises. Patient states the Medrol Dosepak did not provide relief. Additionally, she experiences pain on the top of her foot and has noted an increase in her shoe size due to widening of the foot. Patient states she was previously a size 6 and is now a size 8. Her caregiver reports that Tylenol, even at high doses up to 1000 mg, has not been effective for her pain, but she is unable to take certain medications due to currently taking Plavix. [facility] Medical History (Updated 03/04/25 @ 00:01 by Sotero Scherer) Fracture of right foot with malunion Arthritis of right foot Other enthesopathy of right foot and ankle Calcaneal spur of right foot Plantar fasciitis of right foot Hyperkeratosis Bilateral hearing loss Dry eyes, bilateral Superficial thrombosis of right lower extremity Gastritis History of endometrial cancer Personal history of stroke with residual effects Other lack of coordination Muscle wasting and atrophy, not elsewhere classified, multiple sites Peripheral vascular disease, unspecified Primary generalized (osteo)arthritis Migraine, unspecified, not intractable, without status migrainosus Cerebrovascular accident (CVA) due to embolism of left middle cerebral artery Morbid obesity with BMI of 50.0-59.9, adult 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 right dominant side Allergic rhinitis TIA (transient ischemic attack) Pulmonary hypertension Ischemic stroke Chronic diastolic (congestive) heart failure GERD (gastroesophageal reflux disease) Anxiety associated with depression Unstable gait 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 TEDDY (obstructive sleep apnea) Moderate persistent asthma without complication Lacunar infarct, acute Mood disorder Mixed hyperlipidemia Essential hypertension UTI (urinary tract infection) CVA (cerebral vascular accident) Family History Mother Hypertension Father Hypertension Heart disease Sister Breast cancer Brother Diabetes Heart attack Social History Household Members: Family Housing: Assisted Living Facility Do you presently have visiting nurse or other home services: No Alcohol intake: never Patient Tobacco Use Status: Never used Tobacco Smoked in Last 30 Days: No Second Hand Smoke Exposure: No Use of substances other than those prescribed or required for medical reasons: No Advance Directives: Yes Advance Directives on File: Yes Advance Directives Date on File: 09/17/24 service: No Current occupational status: disabled Review of Systems Const Details: - Musculoskeletal: Reports persistent pain in the heel, dorsal, and plantar aspects of the right foot. Reports sensation of a ball inside the arch of the right foot. All systems reviewed & are unremarkable except as noted in HPI and below Physical Exam Vital Signs: BMI result Body Mass Index 55.3 Extrem Other: RLE Focused Physical Exam: Derm: No open lesions, abrasions, or wounds noted. No ecchymosis, erythema, or discoloration noted. No clinical signs of infection noted. No hyperkeratotic or macerated areas noted. Vasc: DP/PT pulses palpable. CFT < 3 secs. Temp gradient warm to warm. Pedal hair absent. No varicosities noted. Neuro: Protective sensations grossly intact. MSK: Pain on palpation to the heel, worse to the medial calcaneal tubercle. Pain on palpation to the medial arch. Negative windlass mechanism. Pain on palpation to the dorsal aspect of the foot in the area of the metatarsals and midfoot. ROM of the forefoot, hindfoot, and ankle WNL, but painful. No crepitus or fluctuance noted. Antalgic gait noted with the use of a walker. Pes planus foot type. Results Reviewed Results Reviewed: Podiatry Read of right foot xray (01/07/25): Malunion of spiral 5th met fracture. Hammertoe deformities noted to 2-5. 1st MPJ arthritic changes noted. Plantar calcaneal spur noted. Pes planus noted. Osteophytic changes noted to the midfoot. Right foot xray (01/07/25): FINDINGS: There is old healed oblique fracture distal fifth metatarsal. There is no visible acute fracture or dislocation. The ankle mortise and subtalar joints are normal. Large calcaneal heel spur and dorsal intertarsal spurring. The soft tissues are normal. IMPRESSION: Large calcaneal heel spur and dorsal intertarsal spurring. No visible acute fracture, dislocation or subluxation seen. Assessment & Plan Assessment & Plan (1) Arthritis of right foot: Code(s): M19.071 - Primary osteoarthritis, right ankle and foot Category: Medical (2) Fracture of right foot with malunion: Code(s): S92.901P - Unspecified fracture of right foot, subsequent encounter for fracture with malunion Category: Medical Qualifiers: Fracture type: closed Qualified Code(s): S92.901P - Unspecified fracture of right foot, subsequent encounter for fracture with malunion (3) Calcaneal spur of right foot: Code(s): M77.31 - Calcaneal spur, right foot Category: Medical (4) Plantar fasciitis of right foot: Code(s): M72.2 - Plantar fascial fibromatosis Category: Medical (5) Other enthesopathy of right foot and ankle: Code(s): M77.51 - Other enthesopathy of right foot and ankle Category: Medical (6) Right foot pain: Code(s): M79.671 - Pain in right foot Category: Medical Plan Patient was informed and verbally consented to the use of an ambient scribe for clinic note documentation during this visit. I discussed with the patient and her caregiver that her right foot pain as treated with arthritis, plantar fasciitis, and a malunion. I explained the treatment plan, which includes using a night splint while sleeping and a cam boot while ambulating. We reviewed medication options, and at this time a prescription for Tylenol and Tramadol was provided. For long-term pain control, I provided a referral to Pain Management. Recommended routine nail care. - Provided patient with a night splint to be worn while resting and while sleeping. - Provided patient with a Cam boot to be worn while ambulating. - Prescribed Tylenol 650 mg and tramadol 50 mg to be taken as needed for pain. - Provided patient with a referral for pain management. - Recommended routine nail care. RTC in 6 weeks. Orders: Referrals Pain Management Referral S92.901P - Unspecified fracture of right foot, subsequent encounter for fracture with malunion, M19.071 - Primary osteoarthritis, right ankle and foot, M77.31 - Calcaneal spur, right foot, M72.2 - Plantar fascial fibromatosis, M77.51 - Other enthesopathy of right foot and ankle Medications: New acetaminophen ER (Tylenol Arthritis Pain) 650 mg PO Q8H PRN 60 tabs 0RF pain M19.071 - Primary osteoarthritis, right ankle and foot, S92.901P - Unspecified fracture of right foot, subsequent encounter for fracture with malunion, M77.31 - Calcaneal spur, right foot, M72.2 - Plantar fascial fibromatosis, M77.51 - Other enthesopathy of right foot and ankle tramadol 50 mg PO DAILY 5 tabs 0RF S92.901P - Unspecified fracture of right foot, subsequent encounter for fracture with malunion, M19.071 - Primary osteoarthritis, right ankle and foot, M77.31 - Calcaneal spur, right foot, M72.2 - Plantar fascial fibromatosis, M77.51 - Other enthesopathy of right foot and ankle Discontinued methylprednisolone Discontinued Reason: Patient Completed Course PO PER PKG DIR 21 ea 0RF M19.071 - Primary osteoarthritis, right ankle and foot, M72.2 - Plantar fascial fibromatosis, M77.31 - Calcaneal spur, right foot, M77.51 - Other enthesopathy of right foot and ankle, M79.671 - Pain in right foot, S92.901P - Unspecified fracture of right foot, subsequent encounter for fracture with malunion Coding Level of Care Code Est Pt Level 4 (98231) Diagnoses Arthritis of right foot M19.071 Closed fracture of right foot with malunion, subsequent encounter S92.901P Fracture type: closed Calcaneal spur of right foot M77.31 Plantar fasciitis of right foot M72.2 Other enthesopathy of right foot and ankle M77.51 Right foot pain M79.671 Comment 38
[2025-02-24 11:39] VITALS: BMI 55.3
--- OUTSIDE RECORDS SUMMARY | 2025-02-24 15:14 | XMS_ITS | Clinical Summary ---
Author Organization [facility] Address [address] [place] [address] Care Team Providers Care Preform Plate Maker Name Role Phone Unavailable Primary Care Provider Unavailabl e Social History Tobacco Use Types Packs/Day Years Used Date Smoking Tobacco: Never Assessed Comments Unknown Sex and Gender Information Value Date Recorded Sex Assigned at Not on file Legal Sex Female 4:28 AM EST Gender Identity Not on file Sexual Orientation Not on file Last Filed Vital Signs Vital Sign Reading Time Taken Comments Blood Pressure 111/79 06/15/2023 11:30 AM EDT Pulse 78 06/15/2023 11:30 AM EDT Temperature 37.3 C (99.1 F) 06/15/2023 7:37 AM EDT Respiratory Rate 16 06/15/2023 11:30 AM EDT Oxygen Saturation - - Inhaled Oxygen Concentration - - Weight 123.4 kg (272 lb) 06/15/2023 7:37 AM EDT Height 157.5 cm (5' 2 ) 06/15/2023 7:37 AM EDT Body Mass Index 49.75 06/15/2023 7:37 AM EDT Plan of Treatment Health Maintenance Due Date Last Done Comments Bone Density (DXA) Scan 1960 HEPATITIS C SCREENING 11/12/1975 DTAP/TDAP/TD VACCINES (1 - Tdap) 11/12/1987 COLONOSCOPY (CRC) 11/12/2003 COLORECTAL CANCER SCREENING (CRC) 11/12/2003 CT COLONOGRAPHY (CRC) 11/12/2003 FIT-DNA (CRC) 11/12/2003 FIT/iFOBT (CRC) 11/12/2003 SIGMOIDOSCOPY (CRC) 11/12/2003 PNEUMOCOCCAL VACCINE: 50+ YE ARS (1 of 1 - PCV) 2008 ZOSTER VACCINE (1 of 2) 2008 RSV IMMUNIZATION (1 - Risk 6 0-74 years 1-dose series) 2018 MAMMOGRAM 08/31/2023 08/30/2021 INFLUENZA VACCINE (#1) 2024 01/10/2022 COVID-19 IMMUNIZATION (2 - 2 025 season) 2024 09/08/2021 IPV VACCINES Aged Out No longer eligi ble based on patient's age to complete this topic MENINGOCOCCAL B VACCINE Aged Out No l onger eligible based on patient's age to complete this topic [place] [address] [address] [place] [address]
== END 2025-02-24 12:55 | disposition home or self-care (01) ==
LOC: HO.HPODS 11:33
PROVIDERS: PCP Internal Medicine; Visit Provider Student in an Organized Health Care Education/Training Program
DX: M19.071 Primary osteoarthritis, right ankle and foot (principal); S92.901P Unspecified fracture of right foot, subsequent encounter for fracture with malunion; M77.31 Calcaneal spur, right foot; M72.2 Plantar fascial fibromatosis; M77.51 Other enthesopathy of right foot and ankle; M79.671 Pain in right foot
CPT/HCPCS: 99214

== ENCOUNTER → 2025-02-24 11:33 | Outpatient (BNVA) | payer OTHER, SELFPAY | PROVIDERS: PCP Internal Medicine; Visit Provider Student in an Organized Health Care Education/Training Program | DX: S92.901A Unspecified fracture of right foot, initial encounter for closed fracture (principal); M19.071 Primary osteoarthritis, right ankle and foot; M77.31 Calcaneal spur, right foot; M72.2 Plantar fascial fibromatosis; M77.51 Other enthesopathy of right foot and ankle; X58.XXXD Exposure to other specified factors, subsequent encounter | CPT/HCPCS: 99212 ==

== ENCOUNTER 2025-03-03 00:24 | Emergency (ER) | payer OTHER, SELFPAY ==
--- NOTE | 2025-03-03 | ECG_ITS ---
Test Reason : CHEST PAIN Blood Pressure : */* mmHG Vent. Rate : 76 BPM Atrial Rate : 76 BPM P-R Int : 128 ms QRS Dur : 84 ms QT Int : 396 ms P-R-T Axes : 39 0 37 degrees QTcB Int : 445 ms Normal sinus rhythm Normal ECG When compared with ECG of 07-Jan-2025 10:00, No significant change was found Referred By: Generic ED Physician Electronically Signed By: RONALD STAHL MD
--- NOTE | ~2025-03-03 | XR_ITS ---
CLINICAL HISTORY: pain 2 view chest x-ray Comparison: CR/SR - XR CHEST 1 VIEW - 01/07/25 09:48 EDT Findings: The lungs are clear. Low lung volumes. Heart size is mildly enlarged. No acute fracture. IMPRESSION: 1. No acute findings. This document has been electronically signed by: Morales Armstrong MD on 03/03/2025 02:27:07
[2025-03-03 00:30] VITALS: BP 113/74; PULSE 85; O2SAT 98
[2025-03-03 00:40] VITALS: BP 144/92; PULSE 76; RESP 17; TEMP 36.7; O2SAT 97; BMI 47.1
--- NOTE | 2025-03-03 01:01 | ED.CHESTPAIN ---
HPI - Chest Pain General Chief Complaint: Chest Pain Stated Complaint: R CP RAD DOWN R ARM/LEG PER EMS Time Seen by Provider: 03/03/25 00:36 Source: patient, RN notes reviewed, old records reviewed and interpreter translator Mode of arrival: EMS Limitations: language barrier History of Present Illness ED Provider: Nicole HPI narrative: 64 year old female with past medical history significant for CHF, right sided deficits from previous stroke, morbid obesity presenting for evaluation of right-sided body pain. the patient reports around 9:00 p.m., about 4 hours prior to arrival she developed right-sided chest pain. she reports that she was sitting down talking to her caregiver at the time her pain started she reports that the pain radiates up into her neck, her shoulder, her back and all way down to her right hip and foot. she reports that it hurts if she moves or as she takes a deep breath she denies any fevers, chills or coughing She saw neurology last week for a nerve conduction study and reports that they did not tell her the results Related Data Home Medications ?Medication ?Instructions ?Recorded ?Confirmed atorvastatin 40 mg tablet 40 mg PO BEDTIME 08/06/22 12/14/24 cholecalciferol (vitamin D3) 125 125 mcg PO DAILY 08/06/22 09/28/24 mcg (5,000 unit) tablet (Vitamin D3) clopidogrel 75 mg tablet 75 mg PO DAILY 08/06/22 12/14/24 meclizine 12.5 mg tablet 12.5 mg PO TID PRN Dizziness Or 08/06/22 09/28/24 Vertigo chlorthalidone 25 mg tablet 25 mg PO DAILY 02/26/24 09/28/24 verapamil 240 mg tablet,extended 240 mg PO BEDTIME 02/26/24 09/28/24 release lisinopril 40 mg tablet 40 mg PO DAILY 09/09/24 12/14/24 pantoprazole 20 mg tablet,delayed 20 mg PO DAILY@0630 09/09/24 09/28/24 release Previous Rx's ?Medication ?Instructions ?Recorded acetaminophen 650 mg 650 mg PO Q8H PRN pain #60 tabs 02/24/25 tablet,extended release (Tylenol Arthritis Pain) tramadol 50 mg tablet 50 mg PO DAILY #5 tabs 02/24/25 cyclobenzaprine 10 mg tablet 10 mg PO TID PRN muscle spasm #20 03/03/25 tabs Allergies Allergy/AdvReac Type Severity Reaction Status Date / Time aspirin (Aspirin) Allergy Mild SWELLING, Verified 03/03/25 00:41 facial swelling, redness Sulfa (Sulfonamide Allergy Mild SWELLING, Verified 03/03/25 00:41 Antibiotics) (Sulfa facial (Sulfonamides)) swelling, redness shrimp Allergy Unknown Verified 03/03/25 00:41 Review of Systems Constitutional: Constitutional: Denies body ache(s), Denies chills, Denies fever(s), Denies frequent falls and Denies headache(s) Eyes: Eyes: Denies blurry vision ENT: Denies vertigo, Denies dizziness and Denies headache(s) Cardiovascular: Cardiovascular: Reports chest pain, Reports chest pain at rest, Reports chest pain with activity and Reports dyspnea Respiratory: Respiratory: Denies cough, Reports pain on inspiration, Denies pain with cough and Reports dyspnea Gastrointestinal: Gastrointestinal: Denies abdominal pain, Denies nausea and Denies vomiting Musculoskeletal: Musculoskeletal: Reports arthralgias, Denies joint swelling, Reports limited range of motion, Reports radiating pain into limb and Denies stiffness Integumentary/Breasts: Skin/Breast: Denies rash Neurologic: Denies vertigo, Denies dizziness, Denies frequent falls and Denies headache(s) Psychiatric: Psychiatric: Denies anxiety [facility] Past Medical History Medical History (Updated 03/03/25 @ 01:18 by Deejay Rivera) Fracture of right foot with malunion Arthritis of right foot Other enthesopathy of right foot and ankle Calcaneal spur of right foot Plantar fasciitis of right foot Hyperkeratosis Bilateral hearing loss Dry eyes, bilateral Superficial thrombosis of right lower extremity Gastritis History of endometrial cancer Personal history of stroke with residual effects Other lack of coordination Muscle wasting and atrophy, not elsewhere classified, multiple sites Peripheral vascular disease, unspecified Primary generalized (osteo)arthritis Migraine, unspecified, not intractable, without status migrainosus Cerebrovascular accident (CVA) due to embolism of left middle cerebral artery Morbid obesity with BMI of 50.0-59.9, adult 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 right dominant side Allergic rhinitis TIA (transient ischemic attack) Pulmonary hypertension Ischemic stroke Chronic diastolic (congestive) heart failure GERD (gastroesophageal reflux disease) Anxiety associated with depression Unstable gait 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 TEDDY (obstructive sleep apnea) Moderate persistent asthma without complication Lacunar infarct, acute Mood disorder Mixed hyperlipidemia Essential hypertension UTI (urinary tract infection) CVA (cerebral vascular accident) Family History Family History Mother Hypertension Father Hypertension Heart disease Sister Breast cancer Brother Diabetes Heart attack Social History Social History Household Members: Family Housing: Assisted Living Facility Do you presently have visiting nurse or other home services: No Alcohol intake: never Patient Tobacco Use Status: Never used Tobacco Smoked in Last 30 Days: No Second Hand Smoke Exposure: No Use of substances other than those prescribed or required for medical reasons: No Advance Directives: Yes Advance Directives on File: Yes Advance Directives Date on File: 09/17/24 service: No Current occupational status: disabled Physical Exam Vital Signs: Vital Signs: Last Vital Signs Temp 98.0 F 03/03/25 04:29 Pulse 77 03/03/25 04:29 Resp 16 03/03/25 04:29 BP 123/81 03/03/25 04:29 Pulse Ox 94 03/03/25 04:29 O2 Del Method Room Air 03/03/25 04:29 BMI result Body Mass Index 47.1 Const: General: healthy appearing, comfortable, no acute distress, alert and awake Nutritional Appearance: well nourished Orientation/consciousness: patient oriented x3 HEENT: Head: Yes normocephalic and Yes atraumatic Eyes: Eyelids: Yes eyelids normal Conjunctivae: conjunctivae normal Sclerae: sclerae normal Corneas: corneas normal Pupils: Equal, round and reactive pupils present EOM: EOMs intact bilaterally Neck: Neck: Yes full ROM Resp: Effort & Inspection: normal respiratory effort, able to speak in complete sentences, no audible wheezes and not labored Auscultation: clear to auscultation bilaterally Cardio: Rate: regular rate Rhythm: regular rhythm GI: Inspection: No distended Palpation (GI): Soft to palpation, not firm, nontender, no guarding and not rigid Skin: General skin exam: elasticity normal Neuro: General: patient oriented x3 Cranial nerves: Yes CN's II-XII intact bilaterally, Yes Equal, round and reactive pupils present and Yes Bilaterally intact EOM present Cognition (Neuro): normal cognition Extrem: Other: the patient has tenderness to the right chest wall without crepitus, tenderness to the right hip and right lumbar paraspinous region. No deformities noted. no crepitus or overlying skin changes Medications Administered Discontinued Medications Generic Name Dose Route Start Last Admin Trade Name Raadq PRN Reason Stop Dose Admin Cyclobenzaprine HCl 10 mg 03/03/25 02:34 03/03/25 03:03 Cyclobenzaprine Hcl 10 Mg Tablet PO 03/03/25 02:35 10 mg ONCE ONE Administration Medical Decision Making Medical Decision Making [facility] Narrative: 64-year-old female with past medical history as above presents for evaluation of right-sided pain her chest and hit primarily but also complains of pain going down her right leg. Her pain is reproducible on exam, consistent with a musculoskeletal origin. Her EKG is normal sinus rhythm with a rate of [address] changes. I have a fairly low suspicion for ACS. She has not hypoxic, tachypneic or tachycardic, I have a low suspicion for PE. However given her comorbidities we will get screening labs including a troponin, chest x-ray. Differential Diagnosis Differential Diagnoses: The differential diagnosis associated with the presentation includes chest wall pain Muscle spasm Bronchitis Pneumonia ACS less likely Admission/Observation Consideration of admission/observation: Escalation of care including admission/observation considered Lab Data [facility] Lab Attestation statement: I reviewed the patient's lab results. no leukocytosis or anemia. Normal platelet count. No electrolyte abnormalities warranting dimension. She reported negative 03/03/25 01:06 03/03/25 01:06 Labs: Lab Results 03/03/25 Range/Units 01:06 WBC 9.2 (4.8-10.8) X10*3/uL RBC 4.18 L (4.20-5.50) X10*6/uL Hgb 12.3 (12.0-16.0) g/dl Hct 37.3 (37.0-47.0) % MCV 89.2 (80.0-98.0) fL MCH 29.4 (27.0-33.0) pg MCHC 33.0 (31.0-35.0) g/dl RDW 12.8 (11.0-16.0) % Plt Count 319 (160-400) X10*3/uL MPV 9.1 L (9.4-12.3) fL Immature Gran % (Auto) 1.1 H (0.0-0.4) % Neut % (Auto) 64.2 (45-73) % Lymph % (Auto) 24.8 (20-40) % Garfield % (Auto) 7.3 (2-11) % Eos % (Auto) 2.1 (0-4) % Baso % (Auto) 0.5 (0-2) % Lymph # (Auto) 2.3 (1.2-4.9) X10*3/uL Garfield # (Auto) 0.7 (0.1-1.2) X10*3/uL Eos # (Auto) 0.2 (0.0-0.4) X10*3/uL Baso # (Auto) 0.1 (0.0-0.2) X10*3/uL Abs Immat Gran (auto) 0.10 H (0.00-0.03) X10*3/uL Absolute Neuts (auto) 5.9 (2.0-8.3) x10*3/uL Absolute Nucleated RBC 0.000 (0.0-0.012) X10*3/uL Nucleated RBC % (auto) 0.0 (0.0-0.2) /100WBC Sodium 141 (135-145) mmol/L Potassium 3.8 (3.3-5.1) mmol/L Chloride 105 (96-108) mmol/L Carbon Dioxide 26 (22-29) mmol/L Anion Gap 14 (12-20) BUN 17 H (9-16) mg/dL Creatinine 0.99 (0.5-1.4) mg/dL Estim Creat Clear Calc 72.8 Estimated GFR 56 Random Glucose 95 (60-115) mg/dL Calcium 9.8 (8.4-10.2) mg/dL Total Bilirubin 0.2 (0.0-1.0) mg/dL AST 23 (5-31) U/L ALT 12 (0-31) U/L Alkaline Phosphatase 59 (39-117) U/L Troponin I High Sens < 2.7 (<3.5-17.0) ng/L NT-Pro-B Natriuret Pep 151.9 (<300) pg/mL Total Protein 7.5 (6.5-8.0) g/dL Albumin 4.0 (3.5-5.0) g/dL Lipase 20 (8-78) U/L Influenza Type A (PCR) NEGATIVE (Negative) Influenza Type B (PCR) NEGATIVE (Negative) RSV RNA Qual (PCR) NEGATIVE (Negative) SARS-CoV-2 RNA (RT-PCR) NEGATIVE (Negative) Independent Interpretation I performed an independent interpretation of an: EKG ( normal sinus rhythm with a rate of 76 beats minute. No ischemia) and Plain X-Ray ( agree with Radiology interpretation) Radiology Impression Discussion of test interpretation with radiology: I have reviewed the radiologist's reading. Radiologist Impression: Findings: The lungs are clear. Low lung volumes. Heart size is mildly enlarged. No acute fracture. IMPRESSION: 1. No acute findings. This document has been electronically signed by: Morales Armstrong MD on 03/03/2025 02:27:07 Discharge Plan Discharge Clinical Impression: Chest pain Patient Disposition: Home, Self-Care Instructions: Chest Wall Pain (ED) Additional Instructions: your workup in the ER today was reassuring pain Your pain is most likely related to muscle spasms. You may use cyclobenzaprine as needed for muscle spasms. This may make you drowsy, do not drink alcohol or drive after taking it. Follow up with your primary doctor, return for new or worsening symptoms Prescriptions: New cyclobenzaprine 10 mg tablet 10 mg PO TID PRN (Reason: muscle spasm) Qty: 20 0RF No Action verapamil 240 mg tablet extended release 240 mg PO BEDTIME chlorthalidone 25 mg tablet 25 mg PO DAILY atorvastatin 40 mg tablet 40 mg PO BEDTIME meclizine 12.5 mg tablet 12.5 mg PO TID PRN (Reason: Dizziness Or Vertigo) clopidogrel 75 mg tablet 75 mg PO DAILY cholecalciferol (vitamin D3) [Vitamin D3] 125 mcg (5,000 unit) tablet 125 mcg PO DAILY lisinopril 40 mg tablet 40 mg PO DAILY pantoprazole 20 mg tablet,delayed release (DR/EC) 20 mg PO DAILY@0630 acetaminophen [Tylenol Arthritis Pain] 650 mg tablet extended release 650 mg PO Q8H PRN (Reason: pain) Qty: 60 0RF tramadol 50 mg tablet 50 mg PO DAILY Qty: 5 0RF Referrals: Kate Cesar MD [Primary Care Provider, Internal Medicine] Interventions: ED Discharge Assessment Last Done: 03/03/25 04:29 Discharge Date/Time: 03/03/25 04:39 Print Language: Ukrainian
[2025-03-03 01:11] LABS: MANUAL DIFF FLAG NO
[2025-03-03 01:13] LABS: Hematocrit 37.3 % (37.0-47.0); Hemoglobin 12.3 g/dl (12.0-16.0); Imm Gran Abs Auto 0.10 X10*3/uL (0.00-0.03); Imm Gran Pct Auto 1.1 % (0.0-0.4); Lymphocytes Absolute Auto 2.3 X10*3/uL (1.2-4.9); Mean Corpuscular HGB Conc 33.0 g/dl (31.0-35.0); Mean Corpuscular Hemoglobin 29.4 pg (27.0-33.0); Mean Corpuscular Volume 89.2 fL (80.0-98.0); NRBC Abs Auto 0.000 X10*3/uL (0.0-0.012); NRBC Pct Auto 0.0 /100WBC (0.0-0.2); Platelet Count 319 X10*3/uL (160-400); Red Blood Count 4.18 X10*6/uL (4.20-5.50); White Blood Count 9.2 X10*3/uL (4.8-10.8)
[2025-03-03 01:26] LABS: Alanine Aminotransferase 12 U/L (0-31); Albumin Level 4.0 g/dL (3.5-5.0); Alkaline Phosphatase 59 U/L (39-117); Anion Gap 14 (12-20); Aspartate Amino Transferase 23 U/L (5-31); Blood Urea Nitrogen 17 mg/dL (9-16); Calcium 9.8 mg/dL (8.4-10.2); Carbon Dioxide 26 mmol/L (22-29); Chloride 105 mmol/L (96-108); Creatinine Clr Calc Pharmacy 72.8; Estimated Glomerular Filt Rate 56; Lipase 20 U/L (8-78); Potassium 3.8 mmol/L (3.3-5.1); Sodium 141 mmol/L (135-145); Total Protein 7.5 g/dL (6.5-8.0)
[2025-03-03 01:33] LABS: Troponin-I High Sensitivity < 2.7 ng/L (<3.5-17.0)
[2025-03-03 01:49] LABS: Resp Syncy Virus RNA Qual PCR NEGATIVE (Negative); SARS COV2 PCR INHOUSE NEGATIVE (Negative)
--- OUTSIDE RECORDS SUMMARY | 2025-03-03 02:14 | XMS_ITS | Encounter Summary ---
Author Organization [employer] Address [address] [place] [address] Care Team Providers Care System Consultant Name Role Phone Massiel Nelson [facility] Primary Care Provider Anna Garcia MD Primary Care Provider [phone] Kate Cesar MD Primary Care Provider + Encounter Details Date Type Department Care Team (Late Contact Info) Description 04/02/[address] [facility] PRIMARY/PEDS [address] [facility], [address] [place] [address] AnitaRoxanne langley, [employer] ACC[employer]ORIES INSTALLER [address] [facility] [address] [place] [address] Social History Tobacco Use Types Packs/Day Years [...] Description 03/15/2025 10:30 AM EST Office Visit [facility] OPTOMETRY [address] [place] [address] Vicki Zapata, OD [address] [place] [address] 03/24/2025 10:00 AM EST Office Visit [facility] MEDICINE [address] [place] [address] Kate Cesar MD [address] [place] [address] documented as of this encounter Visit Diagnoses Not on filedocumented in this encounter Care Teams System Consultant Relationship Specialty Start Date End Date Massiel Nelson [facility] PCP - General 03/24/22 06/09/23 Anna Parnell MD [address] [place] [address] PCP - General Internal Medicine 06/10/23 10/31/23 Kate Cesar MD [address] [place] [id number] PCP - General Internal Medicine 03/24/24 documented as of this encounter
--- OUTSIDE RECORDS SUMMARY | 2025-03-03 02:14 | XMS_ITS | Encounter Summary ---
Author Organization [employer] Address [address] [place] [address] [place], [place] [address] Care Team Providers Care Hoop Punch And Coiler Operator Helper Name Role Phone Anna Parnell MD Primary Care Provider [phone] Kate Cesar MD Primary Care Provider + Encounter Details Date Type Department Care Team (Late st Contact Info) Description 07/24/2023 Abstract HF [facility] PRIMARY/PEDS [address] [place] [address], [address] [address] Anna Parnell MD [address] [place] [address] Social History Tobacco Use Types Packs/Day Years [...] Description 03/15/2025 10:30 AM EST Office Visit [facility] OPTOMETRY [address] [place] [address] Vicki Zapata, OD [address] [place] [address] 03/24/2025 10:00 AM EST Office Visit [facility] MEDICINE [address] [place] [address] Kate Cesar MD [address] [place] [address] documented as of this encounter Visit Diagnoses Not on filedocumented in this encounter Additional Health Concerns Assessment Noted Time PHQ-9 Depression Total Score: 6 09/11/19 23 12:43 PM EDT documented as of this encounter Care Teams Hoop Punch And Coiler Operator Helper Relationship Specialty Start Date End Date Anna Parnell MD [address] [place] [id number] PCP - General Internal Medicine 06/10/23 10/31/23 Kate Cesar MD [address] [place] [id number] PCP - General Internal Medicine 03/24/24 documented as of this encounter
--- OUTSIDE RECORDS SUMMARY | 2025-03-03 02:14 | XMS_ITS | Encounter Summary ---
Author Organization [employer] Address [address] [facility] [address], [place] [address] Care Team Providers Care Mountain Bike Guide Name Role Phone Kate Cesar MD Primary Care Provider + Encounter Details Date Type Department Care Team ([facility] st Contact Info) Description 09/23/2024 Telephone HF [facility] PRIMARY/PEDS [address] [place] [address], [address] [place] [address] Kate Cesar MD [address] [place] [address] Social History Tobacco Use Types Packs/Day Years [...] with others, in a hotel, in a half-way, living outside on the street, on a [...] the past 12 months, has t he [employer], gas, oil or water company threatened to [...] Description 03/15/2025 10:30 AM EST Office Visit [facility] OPTOMETRY [address] [place] [address] Vicki Zapata, OD [address] [place] [address] 03/24/2025 10:00 AM EST Office Visit [facility] MEDICINE [address] [place] [address] Kate Cesar MD [address] [place] [address] documented as of this encounter Visit Diagnoses Not on filedocumented in this encounter Additional Health Concerns Assessment Noted Time PHQ-9 Depression Total Score: 17 025 1:02 PM EST documented as of this encounter Care Teams Mountain Bike Guide Relationship Specialty Start Date End Date Kate Cesar MD [address] [place] [phone] PCP - General Internal Medicine 03/24/24 documented as of this encounter
--- OUTSIDE RECORDS SUMMARY | 2025-03-03 02:14 | XMS_ITS | Clinical Summary ---
Author Organization [facility] Address [address] [place] [address] Care Team Providers Care Director Of Corporate Real Estate Name Role Phone Unavailable Primary Care Provider [...] patient's age to complete this topic [place] [address]
--- OUTSIDE RECORDS SUMMARY | 2025-03-03 02:14 | XMS_ITS | Encounter Summary ---
Author Organization [employer] Address [address] [place] [address] Care Team Providers Care Tacking Machine Operator Name Role Phone Massiel Nelson [facility] Primary Care Provider Anna Garcia MD Primary Care Provider [phone] Kate Cesar MD Primary Care Provider + Encounter Details Date Type Department Care Team (Late Contact Info) Description 10/18/2022 Orders Only HF [facility] PRIMARY/PEDS [address] [facility] [place] [facility], [address] [place] [phone] Massiel [facility] Social History Tobacco Use Types Packs/Day Years [...] Description 03/15/2025 10:30 AM EST Office Visit [facility] OPTOMETRY [address] [place], [place] [phone] Vicki Zapata, OD [address] [place] [address] 03/24/2025 10:00 AM EST Office Visit [facility] MEDICINE [address] [place] [address] Kate Cesar MD [address] [place] [address] documented as of this encounter Visit Diagnoses Not on filedocumented in this encounter Additional Health Concerns Assessment Noted Time PHQ-9 Depression Total Score: 6 09/11/19 23 12:43 PM EDT documented as of this encounter Care Teams Tacking Machine Operator Relationship Specialty Start Date End Date Massiel Nelson [facility] PCP - General 03/24/22 06/09/23 Anna Parnell MD [address] [place] [id number] PCP - General Internal Medicine 06/10/23 10/31/23 Kate Cesar MD [address] [place] [phone] PCP - General Internal Medicine 03/24/24 documented as of this encounter
--- OUTSIDE RECORDS SUMMARY | 2025-03-03 02:14 | XMS_ITS | Encounter Summary ---
Author Organization [employer] Address [address] [place] [address] Care Team Providers Care Credit Card Associate Name Role Phone Kate Cesar MD Primary Care Provider + Reason for Visit * Reason Onset Date Comments FYI / ORDERS 09/23/2024 Encounter Details Date Type Department Care Team ([facility] st Contact Info) Description 09/23/2024 Telephone HF [facility] PRIMARY/PEDS [address] [place] [address], [address] [address] Anna Parnell MD [address] [place] [phone] FYI / ORDERS Social History Tobacco Use [...] with others, in a hotel, in a prison, living outside on the street, on a [...] no longer under our care, seen at [facility], call placed to Tamar and made aware, sending to [facility] records to melissa as transferred. * Telephone Encounter - Edel Beck - 09/23/2024 3:00 PM EDT Tamar from [facility] calling to let Dr. Parnell know she will be resending orders to Provider soon Orders include Plan of care and Frequency evaluation Tamar's best call back #: [phone] documented in this encounter Plan of Treatment Upcoming Encounters Date Type Department Care Team (To Contact Info) Description 03/15/2025 10:30 AM EST Office Visit [facility] OPTOMETRY [address] [place], [place] [phone] Rogerjonny Vicki, OD [address] [place] [address] 03/24/2025 10:00 AM EST Office Visit [facility] MEDICINE [address] [place], [place] [phone] Kate Cesar MD [address] [place], [place] [phone] documented as of this encounter Visit Diagnoses Not on filedocumented in this encounter Additional Health Concerns Assessment Noted Time PHQ-9 Depression Total Score: 17 025 1:02 PM EST documented as of this encounter Care Teams Credit Card Associate Relationship Specialty Start Date End Date Kate Cesar MD [address] [place] [address] [phone] PCP - General Internal Medicine 03/24/24 documented as of this encounter
--- OUTSIDE RECORDS SUMMARY | 2025-03-03 02:14 | XMS_ITS | Encounter Summary ---
Author Organization [employer] Address [address] [address] Care Team Providers Care Inspector And Tester Name Role Phone Kate Cesar MD Primary Care Provider + Reason for Visit * Reason Onset Date Comments christo 02/03/2025 [facility] Outreach Encounter Details Date Type Department Care Team ([facility] st Contact Info) Description 02/03/2025 Telephone [facility] MEDICINE [address] [place] [address] Cass Donahue, YARY villafuerte ([facility] Outreach) Social History Tobacco Use Types Packs/Day Years [...] with others, in a hotel, in a snf, living outside on the street, on a [...] encounter Miscellaneous Notes * Telephone Encounter - Cass Donahue RN - 03/02/2025 9:40 AM EST RN outreach completed for Cologuard?? follow-up. Spoke with patient regarding the importance of completing colorectal cancer screening and reviewed how to properly collect and return the Cologuard?? kit. Discussed common barriers and provided education on options for UPS drop-off or scheduling a home pick-up. Patient verbalized understanding and plans to complete the test. Encouraged patient to call the clinic if additional questions or barriers arise. If patient needs materials resent, confirmed preferred method (mail/text/email). Confirmed correct mailing address for test kit. Documented any reported barriers in the tracking spreadsheet. * Telephone Encounter - Cass Donahue RN - 02/22/2025 2:33 PM EST RN outreach completed for Cologuard?? follow-up. Left voicemail for patient reminding them to complete their Cologuard?? test and explaining the importance of colorectal cancer screening. Informed patient that calls are returned on Tuesdays and provided clinic callback number ([phone]). Requested that if they return the call on a different day, patient access representatives send a message to the RN's inbox. Will attempt follow-up call again next week if no response. Optional add-on for repeat attempts: This was call attempt #1. Will close outreach if no response after third attempt. * Telephone Encounter - Cass Donahue RN - 02/15/2025 10:38 AM EST RN outreach completed for Cologuard?? follow-up. Spoke with patient regarding the importance of completing colorectal cancer screening and reviewed how to properly collect and return the Cologuard?? kit. Discussed common barriers and provided education on options for UPS drop-off or scheduling a home pick-up. Patient verbalized understanding and plans to complete the test. Encouraged patient to call the clinic if additional questions or barriers arise. Patient needs materials resent, confirmed preferred method (mail/text/email). * Telephone Encounter - Cass Donahue RN - 02/09/2025 10:20 AM EST RN outreach completed for Cologuard?? follow-up. Spoke with patient regarding the importance of completing colorectal cancer screening and reviewed how to properly collect and return the Cologuard?? kit. Discussed common barriers and provided education on options for UPS drop-off or scheduling a home pick-up. Patient verbalized understanding and plans to complete the test. Encouraged patient to call the clinic if additional questions or barriers arise. If patient needs materials resent, confirmed preferred method (mail/text/email). Confirmed correct mailing address for test kit. Documented any reported barriers in the tracking spreadsheet. * Telephone Encounter - Cass Donahue RN - 02/03/2025 9:14 AM EST RN outreach completed for Cologuard?? follow-up. Spoke with patient regarding the importance of completing colorectal cancer screening and reviewed how to properly collect and return the Cologuard?? kit. Discussed common barriers and provided education on options for UPS drop-off or scheduling a home pick-up. Patient verbalized understanding and plans to complete the test. Encouraged patient to call the clinic if additional questions or barriers arise. If patient needs materials resent, confirmed preferred method (mail/text/email). Confirmed correct mailing address for test kit. Documented any reported barriers in the tracking spreadsheet. documented in this encounter Plan of Treatment Upcoming Encounters Date Type Department Care Team (Late st Contact Info) Description 03/15/2025 10:30 AM EST Office Visit [facility] OPTOMETRY [address] [place] [address] Vicki Zapata, OD [address] [place] [address] 03/24/2025 10:00 AM EST Office Visit [facility] MEDICINE [address] [place] [address] Kate Cesar MD [address] [place] [address] documented as of this encounter Visit Diagnoses Not on filedocumented in this encounter Additional Health Concerns Assessment Noted Time PHQ-9 Depression Total Score: 20 025 3:34 PM EDT documented as of this encounter Care Teams Inspector And Tester Relationship Specialty Start Date End Date Kate Cesar MD [address] [place] [address] PCP - General Internal Medicine 03/24/24 documented as of this encounter
--- OUTSIDE RECORDS SUMMARY | 2025-03-03 02:15 | XMS_ITS | Clinical Summary ---
Author Organization [employer] Address [address] [place] [address] [address], [place] [address] Care Team Providers Care Conference Coordinator Name Role Phone aKte Cesar MD Primary Care Provider + Allergies Active Allergy Reactions Criticality Noted Date Comments Amoxicillin Hives Medium 04/20/2022 Aspirin Other Low 02/09/2022 Other reaction(s): Swollen eyes Codeine Low 04/14/2018 Other reaction(s): fast heart rate Shrimp Flavor Agent (Non-Screening) Hives Low 10/11/2022 Sulfa Antibiotics Anaphylaxis,Unknown High Sulfatolamide Low 01/10/2022 Sulfur Low 04/14/2018 Other reaction(s): Swollen Eyes Medications * This document contains information received from the source organization and may not represent a complete record from that organization. atorvastatin (Lipitor) 40 MG tabletIndications :Mixed hyperlipidemia Take 1 tablet (40 mg) by mouth Once per day. 90 tablet 3 024 Active verapamil SR (Calan SR) 240 MG ER tabletIndications :Essential hypertension Take 1 tablet (240 mg) by mouth at bedtime. 90 tablet 3 024 Active clopidogrel (Plavix) 75 MG tabletIndications :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 right dominant side (CMS/HCC) (HCC) Take 1 tablet (75 mg) by mouth in the morning. 90 tablet 3 5 4:55 PM EST 025 2025 Active Blood Pressure Monitoring (Blood Pressure Cuff) [facility] [place] Use daily as prescribed 1 each Active albuterol (Ventolin HFA) 108 (90 Base) MCG/ACT inhaler INHALE 1 PUFF BY MOUTH EVERY FOUR HOURS NEEDED FOR SHORTNESS OF BREATH OR WHEEZING 18 g 11 025 Active ammonium lactate (Amlactin) 12 % cream Apply topically if needed for dry skin. 385 g Active polyvinyl alcohol (Liquifilm Tears) 1.4 % ophthalmic solution Administer 1 drop into both eyes 3 times daily. 025 Active baclofen (Lioresal) 20 MG tabletIndications :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 right dominant side (CMS/HCC) (HCC) Take 1 tablet (20 mg) by mouth 3 times daily. 90 tablet 025 Active pantoprazole (Protonix) 20 MG EC tabletIndications :Gastroesophageal reflux disease without esophagitis Take 1 tablet (20 mg) by mouth before breakfast. Do not crush, chew, or split. 30 tablet 11 5 4:55 PM EST 025 2025 Active fluticasone (Flonase) 50 MCG/ACT nasal spray USE 1 SPRAY IN EACH NOSTRIL ONCE DAILY 16 g 2 025 Active DULoxetine (Cymbalta) [address] capsule TAKE 1 CAPSULE BY MOUTH EVERY DAY , DO NOT BREAK, CRUSH, DISSOLVE OR CHEW 30 capsule 2 5 4:55 PM EST Active gabapentin (Neurontin) 100 MG capsule Take 1 capsule (100 mg) by mouth 2 times daily. 60 capsule 3 025 2025 Active orlistat (Xenical) 120 MG capsule Take 1 capsule (120 mg) by mouth with breakfast, with lunch, and with evening meal. 90 capsule 3 5 4:51 PM EST 025 2025 Active chlorthalidone (Hygroton) 25 MG tablet TAKE 1 TABLET BY MOUTH EVERY MORNING 30 tablet 11 5 4:55 PM EST 025 Active lisinopril 40 MG tabletIndications :Essential hypertension Take 1 tablet (40 mg) by mouth Once per day. 90 tablet 3 5 4:55 PM EST 025 2025 Active lisinopril 40 MG tabletIndications :Essential hypertension Take 1 tablet (40 mg) by mouth Once per day. 90 tablet 3 025 2025 Active Acetaminophen Extra Strength 500 MG tabletIndications :Other chronic pain TAKE 1 TABLET BY MOUTH EVERY 6 HOURS NEEDED FOR MILD PAIN OR HEADACHE 90 tablet 3 5 4:51 PM EST 025 Active meclizine (Antivert) 12.5 MG tabletIndications :Dizziness TAKE 1 TABLET BY MOUTH THREE TIMES DAILY IN THE MORNING, AT NOON, AND AT BEDTIME NEEDED 30 tablet 1 5 4:51 PM EST 025 Active cholecalciferol (Vitamin D-3) 25 MCG (1000 UT) capsuleIndication s:Vitamin D deficiency Take 1 capsule (25 mcg) by mouth Once per day. 90 capsule 5 3:56 PM EST 025 2025 Active acetaminophen (Tylenol) 500 MG tabletIndications :Other chronic pain Take 1 tablet (500 mg) by mouth every 6 (six) hours if needed for mild pain or headaches. 90 tablet 3 024 2024 Discontinued meclizine (Antivert) 12.5 MG tabletIndications :Dizziness Take 1 tablet (12.5 mg) by mouth if needed in the morning, at noon, and at bedtime for dizziness. 30 tablet 1 025 2024 Discontinued(R eorder (will not trigger notification to Pharmacy)) cholecalciferol (Vitamin D-3) 25 MCG (1000 UT) capsuleIndication s:Vitamin D deficiency Take 1 capsule (25 mcg) by mouth Once per day. 90 capsule 025 2024 Discontinued(R eorder (will not trigger notification to Pharmacy)) Active Problems Problem Noted Date Diagnosed Date Lumbar back pain with radicu lopathy affecting lower extremity 01/14/2025 Overview (01/14/2025): CT scan of lumbar spine on 07/17/2023: Mild DDD of lumbar spine/osteophyte. No radiculopathy or canal stenosis Assessment & Plan (01/14/2025 2:20 PM EST): - DDD spine is likely contributing to pain and worsening mobility, especially in lower extremities. - Start home-based physical therapy. - Advised use of supportive footwear with adequate heel support, ambulation with a walker with a seat, needs a commode to prevent falls at night and she will feel more comfortable if seated in a recliner. - Requires assistance for activities of daily living due to hemiparesis and mobility limitations, home care evaluation ordered to see if she needs additional DME to stay safe at home. Osteoarthritis of spine with radiculopathy, cerv ical region 01/14/2025 Assessment & Plan (01/14/2025 2:18 PM EST): - She has underlying hemiparesis sp CVA few years ago, symptoms now worsened by radiculopathy (both lumbar and cervical? - Prescribed low-dose gabapentin. I discussed with patient potential risks and side effects: Drowsiness, fatigue, possible mild edema in ankles during initial weeks of gabapentin therapy. - Nerve conduction study ordered - Start PT, patient prefers at home as she has significant difficulty leaving the house for now. - Home care evaluation ordered, she lives with her friend who has full-time job and can stay in the house all day to help her be safe. Urinary incontinence as sequ lisset of cerebrovascular accident (CVA) 01/14/2025 Assessment & Plan (01/14/2025 2:26 PM EST): Use prescription for pull-ups and incontinence supplies size XXL Housing insecurity 12/11/2024 Impaired balance as late effect of cerebrovascul [...] 59.9 in adult 03/24/2024 Assessment & Plan (01/14/2025 2:23 PM EST): - We discussed about obesity contributing to increased risk for cerebrovascular events and mobility limitations. - Prescribed orlistat (Xenical) as she had tolerated in the past. Take with each meal for 3 months. Monitor for gastrointestinal side effects. Advised to eat healthier to support weight loss. - Risks and side effects: Possible gastrointestinal side effects, including diarrhea or constipation. 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 done Assessment & Plan (03/24/2024 2:39 PM [...] endometrial cancer 03/18/2024 Gastritis 03/18/2024 Severe obesity ([facility]) 03/18/2024 Personal history of stroke with residual effects 07/16/2023 Migraine, unspecified, not i ntractable, without status migrainosus 07/12/2023 Peripheral vascular disease, unspecified 024 Muscle wasting and atrophy, not elsewhere classified, multiple sites 07/12/2023 Primary generalized (osteo)arthritis 07/12/2023 Need for assistance with personal care Assessment & Plan (01/14/2025 2:26 PM EST): Patient has right-sided hemiparesis status post CVA plus mobility related to DJD of the spine with radiculopathy and obesity. Will order home care evaluation to help with basic ADLs, mobility and transportation to appointments. Patient is currently living in her room at her friend's house on the first floor, reportedly with handicap access. 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 - Initiate physical therapy at home, and follow-up in 2 months. - Home care evaluation ordered. Follow-up visit scheduled in 2 months to assess progress with therapy. Assessment & Plan (07/29/2024 10:59 AM EDT): Advised not to miss her appointment with physical therapist Assessment & Plan (05/22/2024 1:40 PM EDT): S/P CVA, ambulates with cane or walker. Needs evaluation from PT for fall prevention and home DME. Continue Plavix and Atorvastatin. FU Lipids in 6 months. Will refer to Neurology. Patient or BUSINESS ENTERPRISE OFFICER will call [facility] to arrange for transportation for these appointments Assessment & Plan (03/24/2024 2:58 PM EST): S/P post CVA, has significant sensorial symptoms. Continue ambulation with the walker, may need DMEs to prevent falls at home, refer to PT, may need AFO to improve gait stability. Pt is allergic to Aspirin, continue Plavix life long. LDL is goal at 70, check lipids. Pulmonary hypertension, unspecified ([facility]) TIA (transient ischemic attack) 04/16/2022 Overview (07/19/2023): 07/09/23 acute R sided weakness, admitted to hospital Assessment & Plan (01/14/2025 2:14 PM EST): - Seen 2 months ago, normal CT scan of the brain. - Advised to seek emergency care if increased numbness, weakness, or symptoms do not improve. Monitor for signs of recurrent TIA or stroke. -We discussed about tight control of hypertension, HLD and obesity Gastroesophageal reflux disease 02/16/2022 Chronic diastolic (congestive) heart failure 11/2021 Essential hypertension 02/09/2022 Assessment & Plan (03/24/2024 2:37 PM EST): Uncontrolled. Pt will check BP at home and FU with me in 4 weeks. Order labs and continue same medications. Moderate persistent asthma without complication 02/09/2022 Obstructive sleep apnea (adult) (pediatric) 04/2021 Assessment & Plan (01/14/2025 2:21 PM EST): - She lost her CPAP machine, unclear if her system threw it away. Prescription for replacement CPAP sent in recently. -Advised regarding weight reduction, may be a good candidate for Zepbound. Will follow-up at next visit Assessment & Plan (06/04/2024 9:52 AM EDT): [...] with walker. See above for PT referral. Generalized anxiety disorder 02/09/2022 Assessment & Plan (01/14/2025 12:30 PM EST): >>ASSESSMENT AND PLAN FOR ANXIETY ASSOCIATED WITH DEPRESSION WRITTEN ON 03/24/2024 2:38 PM BY SHERMAN VALENTINO PHQ 9 is positive, will refer to counselor for further evaluation. Severe episode of recurrent major depressive disorder, without psychotic features (CMS/HCC) 02/09/2022 Assessment & Plan (01/14/2025 2:12 PM EST): - Depression noted, with difficulty making decisions and managing self-care, reportedly feels better after moving out of her sisters home. - Continue cycle therapy at home. Her friend Hanna will help her reschedule appointment with psychiatrist. Assessment & Plan (12/15/2024 2:40 PM EDT): >>ASSESSMENT AND PLAN FOR SEVERE DEPRESSION (CMS/HCC) (HCC) WRITTEN ON 12/11/2024 10:12 AM BY JAYDE CRAWFORD >>ASSESSMENT AND PLAN FOR RECURRENT MAJOR DEPRESSIVE DISORDER, IN PARTIAL REMISSION (CMS/HCC) WRITTEN ON 03/24/2024 2:39 PM BY SHERMAN VALENTINO See above at anxiety. Resolved Problems Problem Noted Date Diagnosed Date Resolved Date Hospital discharge follow-up 07/19/2023 01/14/2025 Mastoiditis of left side 07/17/2023 Muscle weakness [...] deficiency, unspecified 09/19/2022 01/08/2023 Inadequate housing 05/28/2022 Ischemic stroke (CMS/HCC) 04/16/2022 Obstructive sleep apnea syndrome 02/16/2022 01/08/2023 Arthritis 02/09/2022 04/27/2022 Chronic GERD 02/09/2022 02/16/2022 Constipation by delayed colonic transit 02/09/2022 01/08/2023 Dependence on other enabling machines and devices 02/09/2022 02/16/2022 Lacunar infarct, acute ([facility]/HCC) 02/09/2022 01/14/2025 Morbid obesity (CMS/HCC) 02/09/2022 Other chronic pain 02/09/2022 Primary osteoarthritis of both knees 02/09/2022 01/08/2023 Sleep dysfunction with arousal disturbance 02/09/2022 02/16/2022 Encounters * This document contains information received from the source organization and may not represent a complete record from that organization. Date Type Department Care Team Description 02/16/2025 Refill [facility] [address] [place] [address] Kate Cesar MD Vitamin D deficiency 02/10/2025 Telephone [facility] [address] [place] [address] Kate Cesar MD 02/08/2025 Refill [facility] [address] [place] [address] Jeniffer Ghosh MD Dizziness 02/08/2025 Refill [facility] [address] [place] [address] Karla Evans MD Other chronic pain; Dizziness 02/03/2025 Telephone [facility] [address] [place] [address] Cass Donahue RN cologbrian ([facility] Outreach) 01/21/2025 Telephone [facility] [address] [place] [address] Kate Cesar MD Med Refill 01/21/2025 Telephone [facility] [address] [place] [address] Kate Cesar MD pa ; Prior Authorization (PA: Orlistat 120 MG) 01/21/2025 Refill [facility] [address] [place] [address] Kate Cesar MD Essential hypertension 01/21/2025 Telephone [facility] [address] [place] [phone] Kate Cesar MD DME 01/20/[address] [address] Kate Cesar MD 01/19/[address] [address] Kate Cesar MD Essential hypertension 01/18/2025 Refill [facility] [address] [place] [phone] Karla Evans MD Essential hypertension 01/15/2025 Results Follow-Up [address] [address] Kate Cesar MD XR Foot 3+ Views Right 01/15/2025 Refill [facility] [address] [place] [phone] Karla Evans MD 01/14/2025 11:45 AM EST Office Visit [address] [address] Kate Cesar MD Osteoarthritis of spine with radiculopathy, cervical region (Primary Dx); Lumbar back pain with radiculopathy affecting lower extremity; 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 right dominant side (CMS/HCC) (HCC); TIA (transient ischemic attack); Obstructive sleep apnea (adult) (pediatric); Urinary incontinence as sequela of cerebrovascular accident (CVA); Severe episode of recurrent major depressive disorder, without psychotic features (CMS/HCC) (HCC); Need for assistance with personal care; Class 3 severe obesity due to excess calories with serious comorbidity and body mass index (BMI) of 50.0 to 59.9 in adult (HCC); Encounter for immunization; Screening mammogram for breast cancer; Encounter for colorectal cancer screening; Screening for colon cancer 01/14/2025 Travel 01/08/2025 Telephone [facility] [address] [place] [phone] Kate Cesar MD Skill nursisng order; Nurse Triage 01/07/2025 Orders Only [facility] External Provider, [facility] 12/23/[address] [address] Evette Stiles NP 12/22/[address] [address] Kate Cesar MD Durable Medical Equipment 12/18/[address] [address] Kate Cesar MD Durable Medical Equipment (DME Request: CPAP Machine (Replacement)) 12/11/2024 Patient Outreach [address] [address] Kate Cesar MD Care Coordination ([facility] outreach for SDAL housing search-referral completed ) 12/04/2024 Orders Only [address] [address] Liz Capone ANP Acute cystitis without hematuria (Primary Dx) 12/03/2024 Results Follow-Up [address] [address] Liz Capone ANP Lipid Panel, Standard, Hemoglobin A1c, Comprehensive Metabolic Panel, Additional followed-up results: 3 12/03/[address] [address] Kate Cesar MD telephone call; Durable Medical Equipment (DME: Multiple Items) 12/03/[address] [address] Kate Cesar MD telephone call from Last 3 Months Immunizations Immunization Administration Dates Next Due Influenza Injectable Quadriv alant Preservative Free IIV4 MDCK 01/10/2022,12/30/2020,05/07/2019,2018 Influenza injectable quadriv alent IIV4 with preservative 01/10/2022,12/30/2020,05/07/2019,2018,01/06/2015 Influenza, High Dose Seasona l, Preservative Free 01/14/2025 Influenza, seasonal, injecta ble, preservative free 12/30/2020,05/07/2019,04/14/2018 [...] Sign Reading Time Taken Comments Blood Pressure 130/70 01/14/2025 12:13 PM EST Pulse 80 01/14/2025 12:13 PM EST Temperature 36.2 C (97.2 F) 01/14/2025 12:13 PM EST Respiratory Rate 18 01/14/2025 12:13 PM EST Oxygen Saturation 98% 01/14/2025 12:13 PM EST Inhaled Oxygen Concentration - - Weight 124 kg (273 lb 12.8 oz) 01/14/2025 12:13 PM EST Height 146 cm (4' 9.48 ) 01/14/2025 12:13 PM EST Body Mass Index 58.26 01/14/2025 12:13 PM EST Plan of Treatment Upcoming Encounters Date Type Department Care Team (Late st Contact Info) Description 03/15/2025 10:30 AM EST Office Visit [facility] [address] [place] [address] Vicki Zapata, OD [address] [place] [address] 03/24/2025 10:00 AM EST Office Visit [facility] [address] [place] [address] Kate Cesar MD [address] [place] [address] Health Maintenance Due Date Last Done Comments CT Colonography 1960 Colonoscopy 1960 Colorectal Cancer Screening 1960 FIT DNA/Cologuard 1960 FIT 1960 FOBT 1960 Sigmoidoscopy 1960 DTaP/Tdap/Td Vaccines (1 - Tdap) 1977 RSV Patients and Patients Aged 60 years or older (1 - Risk 50-74 years 1-dose series) 2008 Zoster Vaccines (1 of 2) 2008 Mammogram 09/16/2023 09/15/2021, 07/0 10/2021, 09/15/2021, Additional history exists COVID-19 Vaccine ( - 2024- season) 2024 09/08/2021, 09/08/2021 SDOH Screening 03/12/2025 03/12/2024 Depression Monitoring 05/27/2025 11/27/2024, 025 Alcohol/Substance Use Screening 10/28/2025 10/28/2024 Tobacco Screening 01/14/2026 01/14/2025 Lipid Panel 12/03/2029 12/03/2024, 03/11, 06/19/2021 Cervical Cancer Screening Discontinued HPV/Cotest Discontinued 11/04/2018 Pap Smear Discontinued 11/04/2018 Pneumococcal Vaccine: 50+ Years Completed 10/07/2024 Hepatitis C Screening Completed 12/03/2024 Influenza Vaccine Completed 01/14/2025, , 01/10/2022, Additional history exists HIB Vaccines Aged Out No longer eligi [...] Procedure Name Priority Date/Time Associated Diagnosis Comments COVID-19 ID NOW (NORRIS) Routine 01/07/2025 3:11 PM EDT XR FOOT 3+ VIEWS RIGHT Routine 01/07/2025 2:01 PM EDT MR BRAIN WO CONTRAST Routine 01/07/2025 12:07 PM EDT GLUCOSE, WHOLE BLOOD Routine 01/07/2025 9:20 AM EDT T-SPOT(R).TB Routine 12/03/2024 11:29 AM EDT Screening for tuberculosis HEPATITIS C AB W/REFL TO HCV RNA, QN, PCR Routine 12/03/2024 11:29 AM EDT Need for hepatitis C screening test COMPREHENSIVE METABOLIC PANEL Routine 12/03/2024 11:29 AM EDT Essential hypertension HEMOGLOBIN A1C Routine 12/03/2024 11:29 AM EDT Mixed hyperlipidemia LIPID PANEL, STANDARD Routine 12/03/2024 11:29 AM EDT Mixed hyperlipidemia MAMMOGRAM GENERIC Routine 09/15/2021 2:2 6 PM EDT HPV DNA PROBE, AMPLIFIED Routine 11/04/2018 10:13 PM EDT LIQUID-BASED PAP TEST Routine 11/04/2018 10:13 PM EDT from Last 3 Months or Most Recently Relevant to Health Maintenance Results * COVID-19 ID NOW ([place]ual[place]) (01/07/2025 3:11 PM EDT) IDNOW SERIAL# [id number] [facility] COVID-19 TEST Negative Negative [facility] COVID-19 NOTE See Note [facility] Comment: Results are for the identification of SARS-CoV2 RNA. TheSARS-CoV2 RNA is generally detectable in respiratory samplesduring the acute phase of infection. Positive results areindicative of the presence of SARS-CoV-2 RNA; clinicalcorrelation with patient history and other diagnosticinformation is necessary to determine patient infectionstatus. Positive results do not rule out bacterial infectionor co- infection with other viruses.Testing facilities within the [place] and [facility] are required to report all positive results tothe appropriate public health authorities.Negative results should be treated as presumptive and, ifinconsistent with clinical signs and symptoms or necessaryfor patient management, should be tested with differentauthorized or cleared molecular tests. Negative results donot preclude SARS-CoV2 RNA infection and should not be usedas the sole basis for patient management decisions. Negativeresults should be considered in the context of a patient'srecent exposures, history and the presence of clinical signsand symptoms consistent with COVID-19.This test has been authorized by the FDA under an EmergencyUse Authorization (EUA) for use by authorized laboratories.Testing performed on the [employer] NOW utilizing NAAT. 01/07/2025 3:11 PM EDT 01/07/2025 3:18 PM EDT us Generic External Data Provider LAB MOLECULAR [facility] GNOST[facility] ORDERABLES Final Result Performing Organization Address City/State/[facility] Co de Phone Number [facility] [address] [place] [phone] * XR Foot 3+ Views Right (01/07/2025 2:01 PM EDT) Anatomical Region Laterality Modality Lower Extremities, Foot Right Radiogra phic Imaging 01/07/2025 2:01 PM EDT Narrative 01/07/2025 2:23 PM EDT [address] [address] XRay Report Signed Patient: Alysa Luevano MR#: [id number] : 1960 Acct:[id number] Age/Sex: 64 / F ADM Date: 01/07/25 Loc: HO.ED Attending Dr: Ordering Physician: Chris Cotton MD Date of Service: 01/07/25 Procedure(s): XR foot RT min 3V Accession Number(s): [id number] cc: Kate Cesar MD; Chris Cotton MD Reason for Exam: pain EXAMINATION: XR FOOT, RIGHT CLINICAL INFORMATION: pain COMPARISON: Right foot 11/01/2023 TECHNIQUE: AP, lateral, and oblique views of the right foot. FINDINGS: There is old healed oblique fracture distal fifth metatarsal. There is no visible acute fracture or dislocation. The ankle mortise and subtalar joints are normal. Large calcaneal heel spur and dorsal intertarsal spurring. The soft tissues are normal. XR/XR foot RT min 3V IMPRESSION: Large calcaneal heel spur and dorsal intertarsal spurring. No visible acute fracture, dislocation or subluxation seen. Electronically signed by: Rito Stewart MD 01/07/2025 02:20 PM EDT RP Dictated By: Rito Stewart MD Signed By: <Electronically signed by Rito Stewart MD in OV> 01/07/25 1420 DD/ 1401 TD/TT: 01/07/25 1412 House [place]: [facility] [place] Procedure Note Donotuseinterpreter, Image - 01/07/[address] [address] XRay Report Signed Patient: Charles Luevano#: [id number] : 9Acct:[id number] Age/Sex: 64 / FADM Date: 01/07/25 Loc: .ED Attending Dr: Ordering Physician: Chris Cotton MD Date of Service: 01/07/25 Procedure(s): XR foot RT min 3V Accession Number(s): [id number] cc: Kate Cesar MD; Chris Cotton MD Reason for Exam: pain EXAMINATION: XR FOOT, RIGHT CLINICAL INFORMATION: pain COMPARISON: Right foot 11/01/2023 TECHNIQUE: AP, lateral, and oblique views of the right foot. FINDINGS: There is old healed oblique fracture distal fifth metatarsal. There is no visible acute fracture or dislocation. The ankle mortise and subtalar joints are normal. Large calcaneal heel spur and dorsal intertarsal spurring. The soft tissues are normal. XR/XR foot RT min 3V IMPRESSION: Large calcaneal heel spur and dorsal intertarsal spurring. No visible acute fracture, dislocation or subluxation seen. Electronically signed by: Rito Stewart MD 01/07/2025 02:20 PM EDT Dictated By: Rito Stewart MD Signed By: <Electronically signed by Rito Stewart MD in OV> 01/07/25 1420 DD/ 1401 TD/TT: 01/07/25 1412 House Admin: JUVENCIO [facility] External Provider IMG XR PROCEDURES Final Result * MR Brain w/o Contrast (01/07/2025 12:07 PM EDT) Anatomical Region Laterality Modality Brain Magnetic Resonan ce 01/07/2025 12:0 7 PM EDT Narrative 01/07/2025 12:57 PM EDT [place] [address] Magnetic Resonance Report Signed Patient: Alysa Luevano MR#: [id number] : 1960 Acct:[id number] Age/Sex: 64 / F ADM Date: 01/07/25 Loc: HO.ED Attending Dr: Ordering Physician: Chris Cotton MD Date of Service: 01/07/25 Procedure(s): MR head/brain wo con Accession Number(s): [id number] cc: Kate Cesar MD; Chris Cotton MD Reason for Exam: rt side weakness EXAMINATION: MR BRAIN WITHOUT IV CONTRAST HISTORY: rt side weakness TECHNIQUE: Sagittal T1, and axial T1, FLAIR, T2, gradient echo, and diffusion weighted MR images of the brain were obtained. COMPARISON: Comparison is made with the prior examination dated 02/26/2024. FINDINGS: The pituitary is normal in size. The cerebellar tonsils are normally located. Again seen are scattered periventricular and subcortical white matter hyperintensities on the FLAIR and T2-weighted images. These are nonspecific, but often seen in the setting of small vessel ischemic disease. There is no mass effect or midline shift. The ventricular system is normal in size and configuration. No intra or extra-axial fluid collections are identified. There are no foci of restricted diffusion. Normal vascular flow voids are noted in the basilar and carotid arteries. The visualized paranasal sinuses are clear. Again seen is fluid signal intensity in the bilateral mastoid air cells. On the right, this is more prominent than on the prior study. MR/MR head/brain wo con IMPRESSION: 1. No acute intracranial abnormality. 2. Fluid in the bilateral mastoid air cells. Electronically signed by: Jack Perry MD 01/07/2025 12:54 PM EDT RP Dictated By: Jack Perry MD Signed By: <Electronically signed by Jack Perry MD in OV> 01/07/25 1254 DD/ 1207 TD/TT: 01/07/25 1240 House Admin: Procedure Note Donotuseinterpreter, Image - 01/07/2025 [place] [address] Magnetic Resonance Report Signed Patient: Charles Luevano#: [id number] : 9Acct:[id number] Age/Sex: 64 / FADM Date: 01/07/25 Loc: .ED Attending Dr: Ordering Physician: Chris Cotton MD Date of Service: 01/07/25 Procedure(s): MR head/brain wo con Accession Number(s): [id number] cc: Kate Cesar MD; Chris Cotton MD Reason for Exam: rt side weakness EXAMINATION: MR BRAIN WITHOUT IV CONTRAST HISTORY: rt side weakness TECHNIQUE: Sagittal T1, and axial T1, FLAIR, T2, gradient echo, and diffusion weighted MR images of the brain were obtained. COMPARISON: Comparison is made with the prior examination dated 02/26/2024. FINDINGS: The pituitary is normal in size. The cerebellar tonsils are normally located. Again seen are scattered periventricular and subcortical white matter hyperintensities on the FLAIR and T2-weighted images. These are nonspecific, but often seen in the setting of small vessel ischemic disease. There is no mass effect or midline shift. The ventricular system is normal in size and configuration. No intra or extra-axial fluid collections are identified. There are no foci of restricted diffusion. Normal vascular flow voids are noted in the basilar and carotid arteries. The visualized paranasal sinuses are clear. Again seen is fluid signal intensity in the bilateral mastoid air cells. On the right, this is more prominent than on the prior study. MR/MR head/brain wo con IMPRESSION: 1. No acute intracranial abnormality. 2. Fluid in the bilateral mastoid air cells. Electronically signed by: Jack Perry MD 01/07/2025 12:54 PM EDT RP Dictated By: Jack Perry MD Signed By: <Electronically signed by Jack Perry MD in OV> 01/07/25 1254 DD/ 1207 TD/TT: 01/07/25 1240 House Admin: [facility] External Provider IMG MRI PROCEDURES Final Result * Glucose, Whole Blood (01/07/2025 9:20 AM EDT) [facility] Glucose, Whole Blood 91 60 - 115 mg/dL [facility] Comment:METER #: [id number] 01/07/2025 9:20 AM EDT 01/08/2025 9:36 AM EDT Generic External Data Provider LAB BLOOD ORDERAB LES Final Result [facility] [address] [place] [phone] * T-SPOT??.TB (12/03/2024 11:29 AM EDT) [facility] T Spot TB Negative Negative [facility] Comment:A negative test resu lt [...] as aquantitative test. TS PANEL A 0 [facility] TS PANEL B 0 [facility] Negative Control Passed [facility] Positive Control Passed [facility] Comment:For additional infor matjoelle, please refer tohttp://education.nuPSYS/faq/WPG816(This link is being provided for informational/educational purposes only.)THIS TEST WAS PERFORMED AT:[employer] [id number] [place] [id number] AMIN MD,PHD 12/03/2024 11:2 9 AM EDT 12/03/2024 1:06 PM EDT [facility] LAB BLOOD ORDERABLES Final Resul t [facility] [address] [place] [phone] * Hepatitis C Antibody with Reflex to HCV, RNA, Quantitative, Real-Time PCR (12/03/2024 11:29 AM EDT) Hepatitis C Antibody Nonreactive Nonreactive [facility] Comment:Antibodies to HCV no t detected; does not exclude early acuteHCV infection. Blood Venous blood specimen / Unknown 12/03/2024 11:29 AM EDT 12/03/2024 1:06 PM EDT Liz Capone ANP LAB BLOOD ORDERABLES Final Resul t Performing Organization Address [facility] de Phone Number [facility] [address] [place] [phone] * Hemoglobin A1c (12/03/2024 11:29 AM EDT) Hemoglobin A1c 5.5 <6.0 % [facility] Comment:Hemoglobin A1C Refer ence Range Adults: 4.8 - 6.0 % Non diabetic: < 6.0 % Goal: < 7.0 %Additional Action Suggested: > 8.0 %Note: Hemoglobin A1c results are invalid for patients with abnormal amounts of HbF. Blood transfusions may impact the HbA1c concentration in the patient sample. Estimated Average Glucose 111 mg/dL [facility] Comment:eAG = Estimated ave rage glucose which is %A1C expressed asaverage glucose, using the formula of the [id number] Glucose study (ADAG), Diabetes Care, Vol.31,#8,Oct. 2007 Blood Venous blood specimen / Unknown 12/03/2024 11:29 AM EDT 12/03/2024 1:06 PM EDT Liz Capone [facility] LAB BLOOD ORDERABLES Final Resul t Performing Organization Address [facility] de Phone Number [facility] [address] [place] [phone] * (ABNORMAL) Lipid Panel, Standard (12/03/2024 11:29 AM EDT) Triglycerides 118 <150 mg/dL [facility] Comment:Slight Lipemia.Nigel able Triglyceride: less than 150 mg/dLBorderline High Triglyceride 150-199 mg/dLHigh Triglyceride: 200-499 mg/dLVery High Triglyceride: greater than or equal to 5OO mg/dL Cholesterol 175 <200 mg/dL [facility] Comment:Desirable Cholestero l: less than 200 mg/dLBorderline High Cholesterol: 200-239 mg/dLHigh Cholesterol: greater than 239 mg/dL LDL Cholesterol Calculated 111(H) <100 mg/dL [facility] Comment:Desirable LDL: less than 100 mg/dLNear Optimal/Above Optimal LDL: 110- 129 mg/dLBorderline High LDL: 130-159 mg/dLHigh LDL: 160-189 mg/dLVery High LDL: greater than or equal to 190 mg/dL HDL Cholesterol 41 >40 mg/dL [facility] Comment:Desirable HDL: great er than 40 mg/dL Note: This HDL assay may give artificially low results in patients with liver disease. Blood Venous blood specimen / Unknown 12/03/2024 11:29 AM EDT 12/03/2024 1:06 PM EDT Liz Capone [facility] LAB BLOOD ORDERABLES Final Resul t [facility] [address] [place] [phone] * (ABNORMAL) Comprehensive Metabolic Panel (12/03/2024 11:29 AM EDT) Sodium 138 135 - 145 mmol/L [facility] Potassium 4.4 3.3 - 5.1 mmol/L [facility] Chloride 103 96 - 108 mmol/L [facility] Carbon Dioxide 26 22 - 29 mmol/L [facility] Anion Gap 13 12 - 20 [facility] Urea Nitrogen (BUN) 39(H) 9 - 16 mg/dL [facility] Creatinine, Serum 1.18 0.5 - 1.4 mg/dL [facility] Estimated Glomerular Filt Rate 46 [facility] Comment:Chronic Kidney Disea se: Estimated GFR < 60 mL/min/1.73a9Cbdsug Kidney Disease: Estimated GFR < 15 mL/min/1.73m2 Glucose 112 60 - 115 mg/dL [facility] Calcium 9.9 8.4 - 10.2 mg/dL [facility] Bilirubin, Total 0.3 0.0 - 1.0 mg/dL [facility] Aspartate Amino Transferase 25 5 - 31 U/L [facility] Alanine Aminotransferase 9 0 - 31 U/L [facility] Total Protein 8.1(H) 6.5 - 8.0 g/dL [facility] Albumin Level 4.2 3.5 - 5.0 g/dL [facility] Alkaline Phosphatase 67 39 - 117 U/L [facility] Blood Venous blood specimen / Unknown 12/03/2024 11:29 AM EDT 12/03/2024 1:06 PM EDT Liz Capone [facility] LAB BLOOD ORDERABLES Final Resul t [facility] [address] [place] [phone] * MAMMO BREAST JOSE JUAN ADDTL VIEW RIGHT (09/15/2021 2:26 PM EDT) Anatomical Region Laterality Modality Breast Bilateral Mammography 09/15/2021 2:26 PM EDT Narrative 09/16/2021 8:32 AM EDT Refer to [facility] for result details Legacy Procedure: MAMMO BREAST JOSE JUAN ADDTL VIEW RIGHT Procedure Note ProviderErik MD - 06/03/2022 Refer to Laci for result details [facility] Procedure: MAMMO BREAST JOSE JUAN ADDTL VIEW RIGHT Agata Reza MD IMG BI PROCEDURES Final Resul t * Liquid-based Pap (11/04/2018 10:13 PM EDT) Other Findings FUNGAL ORGANISMS MORPHOLOGICALLY CONSISTENT WITH SD SPP [facility] HPV REFLEX? 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 ADEQUACY Satisfactory for evaluation, endocervical/trans formation [...] Information [facility] Additional Information CPT 29267 [facility] LAB AP CASE REPORT Gynecologic Cytology Case: [id number] [facility] LAB AP CASE REPORT Authorizing Provider: Agata Reza MD Collected: 11/04/2018 2213 [facility] LAB AP CASE REPORT Ordering Location: [facility] Received: 11/04/2018 2213 [facility] Clinical Information Z01.419 Encounter for gynecological examination without abnormal finding [facility] Clinical Information [facility] 11/04/2018 10:1 3 PM EDT us Agata Reza MD LAB CYTOLOGY ORDERABLES Final Result [facility] [address] * HPV DNA XXX Ql Amp [...] MICROBIOLOGY - GENERAL OR DERABLES Final Result [facility] [address] [place] [address], from Last 3 Months or Most Recently Relevant to Health Maintenance Insurance [facility] S[facility] OPTIONS (O D-SNP) Advance Directives Documents on File Type Date Recorded 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
[2025-03-03 02:41] LABS: NT Pro B Type Natriuretic Pept 151.9 pg/mL (<300)
[2025-03-03 02:57] VITALS: BP 123/81; PULSE 77; RESP 16; TEMP 36.7; O2SAT 94
[2025-03-03 04:29] VITALS: BP 123/81; PULSE 77; RESP 16; TEMP 36.7; O2SAT 94
--- NOTE | 2025-03-04 08:25 | MHC.CM.PN ---
PT DISCHARGED FROM ED PRIOR TO CM SHIFT.
== END 2025-03-03 04:39 | disposition home or self-care (01) ==
PROVIDERS: Physician Assistant; Emergency Provider Emergency Medicine; PCP Internal Medicine
DX: R07.9 Chest pain, unspecified (principal); R06.02 Shortness of breath; J45.909 Unspecified asthma, uncomplicated; Z03.818 Encounter for observation for suspected exposure to other biological agents ruled out; Z86.73 Personal history of transient ischemic attack (TIA), and cerebral infarction without residual deficits; Z79.02 Long term (current) use of antithrombotics/antiplatelets; Z79.899 Other long term (current) drug therapy
CPT/HCPCS: 71046; 80053; 83690; 83880; 84484; 85025; 87637; 93005; 99285

== ENCOUNTER → 2025-03-03 00:32 | Outpatient (BNV) | payer OTHER, SELFPAY | PROVIDERS: Emergency Provider Emergency Medicine; PCP Internal Medicine; Visit Provider Internal Medicine Cardiovascular Disease | DX: R07.9 Chest pain, unspecified (principal) | CPT/HCPCS: 93010 ==

== ENCOUNTER → 2025-03-03 00:48 | Outpatient (BNV) | payer OTHER, SELFPAY | PROVIDERS: Emergency Provider Emergency Medicine; PCP Internal Medicine; Visit Provider Radiology Diagnostic Radiology | DX: R07.9 Chest pain, unspecified (principal) | CPT/HCPCS: 71046 ==